=== PATIENT | female | born 1930 | race African-American/Black ===

== ENCOUNTER → 2016-07-20 | Outpatient (CLI) | payer MEDICARE, OTHER ==
[~2016-07-20] MED LIST: ALPR.25 PO; AMLO5 PO; ASPI325T PO; ATOR20TA15 PO; CARV6.252 PO; CIPR-9 PO; COLA100C3 PO; DILA100C PO; FENT25T TD; HYDR-3516 PO; LEVE250 PO; LEVE500T8 PO; PANT40TA3 PO; PRAD150C PO; SERO25TA PO; SIME80CH CHEW; TORS20TA PO
== END ==
LOC: CLAB 13:16
PROVIDERS: ATTEND Psychiatry & Neurology Neurology
DX: R56.9 Unspecified convulsions (principal)
CPT/HCPCS: 36415; 80177; 80185

== ENCOUNTER 2016-10-12 19:42 | Emergency (ER) | payer MEDICARE, OTHER ==
[~2016-10-12] VITALS: Ht 167.6 cm; Wt 55.0 kg
[~2016-10-12 19:42] MED LIST changes: -LEVE250 PO
[2016-10-12 19:49] VITALS: BP 124/64; PULSE 66; RESP 20; O2SAT 95
[2016-10-12 20:03] VITALS: TEMP 97.9
--- NOTE | 2016-10-12 20:07 | PD ---
HPI Chief Complaint: General Weakness Time Seen by Provider: 20:05 Travel History International Travel<30 days: No Contact w/Intl Traveler<30days: No Traveled to known affect area: No History of Present Illness HPI 85-year-old female came to the emergency room brought by EMS since she wants to go to the [facility]. Patient is extremely frail and unable to take care of herself. She lives by herself. She told the the paramedics that she hasn't eaten in 2-3 days and hasn't taken her medications since she is unable to. She has family members were supposed to come and visit her today but nobody has come. She was crying and tearful when I saw her. It's hard to understand what she is speaking since she has no teeth in her mouth and her mouth was very dry. PFSH Past Medical History Narrative Medical List of her past medical, surgical, social and family history was reviewed from the nursing note. Hx Anticoagulant Therapy: Yes (PRADAXA) Arthritis: Yes Asthma: Yes Atrial Fibrillation: Yes Autoimmune Disease: No Blood Disorders: No Anxiety: Yes Depression: No Heart Rhythm Problems: Yes Cancer: No Cardiovascular Problems: Yes (pacer) High Cholesterol: No Chemotherapy: No Chest Pain: No Congestive Heart Failure: Yes COPD: No Cerebrovascular Accident: Yes (with Lt sided weakness ) Dementia: Yes Diabetes: No Diminished Hearing: Yes (right BOONE) Endocrine: No GERD: Yes Glaucoma: No Genitourinary: No Hiatal Hernia: No Hypertension: Yes Immune Disorder: No Implanted Vascular Access Dvce: Yes Kidney Stones: No Musculoskeletal: Yes Neurologic: Yes Psychiatric: No Reproductive: No Respiratory: No Migraines: No Radiation Therapy: No Renal Failure: No Seizures: Yes Sickle Cell Disease: No Sleep Apnea: No Thyroid Disease: No Ulcer: No Influenza Vaccination: No ?: Not : 11 Para: 11 Miscarriage: 0 : 0 Past Surgical History Abdominal Surgery: No AICD: Yes Arteriovenous Shunt: No Body Medical Devices: DEFIBRILLATOR Cardiac Surgery: Yes (AICD placed on 2005; coronary angiogram) Ear Surgery: No Endocrine Surgery: No Eye Surgery: Yes (Cataract surgery) Genitourinary Surgery: No Gynecologic Surgery: Yes (Partial Hysterectomy) Hysterectomy: Yes (partial) Insulin Pump: No Joint Replacement: No Oral Surgery: No Pacemaker: Yes Thoracic Surgery: No Other Surgery: Yes Social History Alcohol Use: No Tobacco Use: No Substance Use: No Allergies-Medications (Allergen,Severity, Reaction): Coded Allergies: Darvocet-N 100 (Verified Allergy, Severe, nausea and vomiting, 10/12/16) MRI PRECAUTION (Verified Allergy, Severe, 10/12/16) DIFIBRILLATOR Comments List of her allergies reviewed from the nursing note. Reported Meds & Prescriptions Reported Meds & Active Scripts Active Hydrocodone-Acetaminophen 5-325 mg Tab 1 Tab PO Q6HR PRN Duragesic Patch 72 HR (Fentanyl) 25 Mcg/Hr Patch 1 Patch TD Q3D Cipro (Ciprofloxacin HCl) 500 Mg Tab 500 Mg PO Q12HR Xanax (Alprazolam) 0.25 Mg Tab 0.125 Mg PO Q8HR PRN Dilantin (Phenytoin Extended) 100 Mg Cap 100 Mg PO Q8HR Pantoprazole (Pantoprazole Sodium) 40 Mg Tab 40 Mg PO DAILY Norvasc (Amlodipine Besylate) 5 Mg Tab 5 Mg PO DAILY Seroquel (Quetiapine Fumarate) 25 Mg Tab 12.5 Mg PO HS Levetiracetam 500 Mg Tab 500 Mg PO Q6HR Pradaxa (Dabigatran) 150 Mg Cap 150 Mg PO BID Simethicone 80 Mg Chw 80 Mg CHEW BID PRN Aspirin 325 Mg Tab 325 Mg PO DAILY Colace (Docusate Sodium) 100 Mg Cap 100 Mg PO BID Torsemide 20 Mg Tab 20 Mg PO DAILY Carvedilol 6.25 Mg Tab 6.25 Mg PO BID Atorvastatin (Atorvastatin Calcium) 20 Mg Tab 20 Mg PO HS Narrative Medication List of her home medications reviewed from the nursing note. Review of Systems Except as stated in HPI: all other systems reviewed are Neg Physical Exam Narrative GENERAL: Awake, alert, elderly, frail, tearful SKIN: Focused skin assessment warm/dry. HEAD: Atraumatic. Normocephalic. EYES: Pupils equal and round. No scleral icterus. No injection or drainage. ENT: No nasal bleeding or discharge. Dry mucous membrane, coated tongue NECK: Trachea midline. No JVD. CARDIOVASCULAR: Regular rate and rhythm. No murmur appreciated. RESPIRATORY: No accessory muscle use. Clear to auscultation. Breath sounds equal bilaterally. GASTROINTESTINAL: Abdomen soft, non-tender, nondistended. Hepatic and splenic margins not palpable. MUSCULOSKELETAL: No obvious deformities. No clubbing. No cyanosis. Bilateral pitting edema NEUROLOGICAL: Awake and alert. No obvious cranial nerve deficits. Motor grossly within normal limits. Dysarthric speech due to absent dentures. PSYCHIATRIC: Appropriate mood and affect; insight and judgment normal. Data Data Last Documented VS Vital Signs Date Time Temp Pulse Resp B/P Pulse Ox O2 Delivery O2 Flow Rate FiO2 10/12/16 20:03 97.9 10/12/16 19:49 66 20 124/64 95 Orders Electrocardiogram (10/12/16 20:10) Basic Metabolic Panel (Bmp) (10/12/16 20:10) Complete Blood Count With Diff (10/12/16 20:10) Magnesium (Mg) (10/12/16 20:10) Prothrombin Time / Inr (Pt) (10/12/16 20:10) Troponin I (10/12/16 20:10) Chest, Single Ap (10/12/16 20:10) Ecg Monitoring (10/12/16 20:10) Bilateral Bp Monitoring (10/12/16 20:10) Iv Access Insert/Monitor (10/12/16 20:10) Oximetry (10/12/16 20:10) Oxygen Administration (10/12/16 20:10) Sodium Chloride 0.9% Flush (Ns Flush) (10/12/16 20:15) Sodium Chlorid 0.9% 500 Ml Inj (Ns 500 M (10/12/16 20:15) Urinalysis - C+S If Indicated (10/12/16 20:44) ^ Straight Catheter (10/12/16 20:44) Labs Laboratory Tests Test 10/12/16 10/12/16 20:20 22:00 White Blood Count 5.0 TH/MM3 Red Blood Count 3.69 MIL/MM3 Hemoglobin 10.9 GM/DL Hematocrit 34.2 % Mean Corpuscular Volume 92.6 FL Mean Corpuscular Hemoglobin 29.4 PG Mean Corpuscular Hemoglobin 31.8 % Concent Red Cell Distribution Width 15.3 % Platelet Count 195 TH/MM3 Mean Platelet Volume 9.5 FL Neutrophils (%) (Auto) 53.3 % Lymphocytes (%) (Auto) 28.9 % Monocytes (%) (Auto) 12.0 % Eosinophils (%) (Auto) 5.0 % Basophils (%) (Auto) 0.8 % Neutrophils # (Auto) 2.6 TH/MM3 Lymphocytes # (Auto) 1.4 TH/MM3 Monocytes # (Auto) 0.6 TH/MM3 Eosinophils # (Auto) 0.2 TH/MM3 Basophils # (Auto) 0.0 TH/MM3 CBC Comment DIFF FINAL Differential Comment Prothrombin Time 17.1 SEC Prothromb Time International 1.5 RATIO Ratio Sodium Level 144 MEQ/L Potassium Level 5.1 MEQ/L Chloride Level 104 MEQ/L Carbon Dioxide Level 33.5 MEQ/L Anion Gap 7 MEQ/L Blood Urea Nitrogen 32 MG/DL Creatinine 1.13 MG/DL Estimat Glomerular Filtration 56 ML/MIN Rate Random Glucose 99 MG/DL Calcium Level 9.0 MG/DL Magnesium Level 2.3 MG/DL Troponin I 0.03 NG/ML Urine Color YELLOW Urine Turbidity CLEAR Urine pH 5.0 Urine Specific [place] 1.012 Urine Protein NEG mg/dL Urine Glucose (UA) NEG mg/dL Urine Ketones NEG mg/dL Urine Occult Blood NEG Urine Nitrite NEG Urine Bilirubin NEG Urine Urobilinogen LESS THAN 2.0 MG/DL Urine Leukocyte Esterase NEG Urine RBC 1 /hpf Urine WBC LESS THAN 1 /hpf Urine Squamous Epithelial <1 /hpf Cells Urine Hyaline Casts 28 /lpf Urine Mucus FEW /lpf Microscopic Urinalysis Comment CATH-CULT NOT IND MDM Medical Decision Making Medical Screen Exam Complete: Yes Emergency Medical Condition: Yes Medical Record Reviewed: Yes Interpretation(s) Twelve-lead EKG was reviewed by me. Atrial fibrillation, left axis deviation, interventricular conduction delay. Heart rate of 69 bpm. Differential Diagnosis Dehydration, UTI, failure to thrive Narrative Course 8:48 PM awaiting for the blood test results to come back. Chest x-ray shows stable cardiomegaly. 10:44 PM blood test result and UA was back and within normal limit. I have medically cleared her. I've asked for ED case management to look into the case. Patient was given meal to eat which she ate well. 12:48 AM patient's son and grandson came and she was tried to be ambulated with a walker. Patient took slow 15-20 steps and mated till a wheelchair. As per the family patient uses walker to ambulate at home. They're comfortable taking her home and her grandson is going to stay with her tonight. I will also prepare he [id number] for home health care. Procedures EKG Prior to Arrival: No Diagnosis Primary Impression: Generalized weakness Referrals: Primary Care Physician 2 days Additional Instructions: Please return to the ER if the condition worsens or any other new concerns. Otherwise follow-up with your primary care. Med/Other Pt SpecificInfo: No Change to Meds Disposition: 01 DISCHARGE HOME Condition: Stable Oz Hemphill MD Oct 12, 2016 20:07
[2016-10-12] MEDS ORDERED: SODIUM CHLORIDE 0.9% FLUSH 10 ML FLUSH IVF PRN (20:15)
[2016-10-12] MEDS ORDERED: SODIUM CHLORID 0.9% 500 ML INJ 500 ML IV ONE (20:15)
--- NOTE | 2016-10-12 20:33 | RADRPT ---
EXAM DATE/TIME: 10/12/2016 20:20 [facility] COMPARISON: CHEST SINGLE AP, December 18, 2013, 18:56. INDICATIONS : Chest pain. MEDICAL HISTORY : Cardiovascular disease. Cerebrovascular disease. Dementia. SURGICAL HISTORY : Pacemaker. ENCOUNTER: Initial ACUITY: 1 day PAIN SCORE: Non-responsive. LOCATION: Bilateral chest FINDINGS: There is compensated cardiomegaly without failure. 3-lead pacer is evident. Lead appears intact. Th e portion of the bony skeleton visualized is unremarkable. CONCLUSION: Compensated cardiomegaly otherwise negative Reji Plummer MD FACR on October 12, 2016 at 20:30 Board Certified Radiologist. This report was verified electronically.
[2016-10-12 20:49] LABS: AUTOMATED NEUTROPHIL # 2.6 TH/MM3 (1.8-7.7); BASOPHIL % 0.8 % (0.0-2.0); EOSINOPHIL # 0.2 TH/MM3 (0-0.4); HEMATOCRIT 34.2 % (35.0-46.0); HEMO FLAGS DIFF FINAL; LYMPH % 28.9 % (9.0-44.0); LYMPHOCYTE # 1.4 TH/MM3 (1.0-4.8); MEAN CELL VOLUME 92.6 FL (80.0-100.0); MEAN CORPUSCULAR HEMOGLOBIN 29.4 PG (27.0-34.0); MEAN CORPUSCULAR HGB CONC 31.8 % (32.0-36.0); NEUT % 53.3 % (16.0-70.0); PLATELET COUNT 195 TH/MM3 (150-450); RED BLOOD COUNT 3.69 MIL/MM3 (4.00-5.30); RED CELL DISTRIBUTION WIDTH 15.3 % (11.6-17.2)
[2016-10-12 21:02] LABS: INTERNATIONAL NORMALIZED RATIO 1.5 RATIO; PROTHROMBIN TIME - PATIENT 17.1 SEC (9.8-11.6)
[2016-10-12 21:17] LABS: BICARBONATE 33.5 MEQ/L (21.0-32.0); MAGNESIUM 2.3 MG/DL (1.5-2.5)
[2016-10-12 21:18] LABS: POTASSIUM 5.1 MEQ/L (3.5-5.1)
[2016-10-12 22:16] LABS: BLOOD, URINE NEG (NEG); GLUCOSE,URINE NEG (NEG); HYALINE CAST, URINE 28 /lpf (RARE); KETONE, URINE NEG (NEG); MUCUS URINE FEW /lpf (OCC); NITRITE,URINE NEG (NEG); SQUAMOUS EPITHELIAL CELL URINE <1 /hpf (0-5); URINE COLOR YELLOW (YELLW/STRAW)
[2016-10-12 22:22] LABS: COMMENT (UR) CATH-CULT NOT IND; CULTURE IF INDICATED CATH CULTURE NOT IND
--- NOTE | 2016-10-13 00:54 | HHI.FF ---
Face to Face Verification Diagnosis: (1) Generalized weakness Physical Therapy Order: Evaluate and Treat, Improve ambulation, Strength and gait training Occupational Therapy Order: Evaluate and Treat, Improve ADL, Gross motor coordination Home Health Nursing Order: Medical education Nursing assessment with vital signs Home Health Aide Order: To Assist In: Bathing and personal care, plasterer spot and meal prep [employer] Order: To Evaluate: Living conditions/environment Order: To Provide: Long range planning I have seen patient Aida Baxter on 10/13/16. My clinical findings support the need for the requested home health care services because: Of her extreme progressing debility and generalized weakness. Patient is having hard time ambulating and taking care of herself. Ltd mobility - disease progression Deconditioned w/ increased weakness Limited ability to care for self High risk of falls I certify that my clinical findings support that this patient is homebound because: Generalized weakness, debility, difficulty ambulating and taking care of herself Unsteady gait/balance Unsafe to leave home unassisted Unable to use public transportation Oz Hemphill MD Oct 13, 2016 00:54
--- NOTE | 2016-10-13 11:41 | EKG ---
Date Performed: 10/12/2016 Time Performed: 20:34:21 PTAGE: 85 years EKG: ATRIAL FIBRILLATION INTRAVENTRICULAR CONDUCTION DELAY ABNORMAL ECG PREVIOUS TRACING : 05/25/2016 19.32 DOCTOR: Doc Baeza Interpretating Date/Time 10/13/2016 11:37:38
== END 2016-10-13 01:00 | disposition home or self-care (01) ==
LOC: NEPD 19:42
DX: R53.1 Weakness (principal); I48.91 Unspecified atrial fibrillation; I50.9 Heart failure, unspecified; I10 Essential (primary) hypertension; R54 Age-related physical debility
CPT/HCPCS: 71010; 80048; 81001; 83735; 84484; 85025; 85610; 93005; 96360; 99285; J7040

== ENCOUNTER → 2016-10-22 | Outpatient (CLI) | payer MEDICARE, OTHER ==
[~2016-10-22] MED LIST changes: +LEVE250 PO
== END ==
LOC: CLAB 13:36
PROVIDERS: ATTEND Psychiatry & Neurology Neurology
DX: R56.9 Unspecified convulsions (principal)
CPT/HCPCS: 36415; 80177; 80185

== ENCOUNTER 2016-12-01 19:05 | Inpatient (IN) | payer MEDICARE, OTHER ==
[2016-12-01 19:05] VITALS: RESP 24; O2SAT 97
[~2016-12-01 19:05] MED LIST changes: -LEVE250 PO
[2016-12-01] MEDS ORDERED: SODIUM CHLOR 0.9% 1000 ML INJ 1,000 ML IV SCH (19:14)
[2016-12-01] MEDS ORDERED: SODIUM CHLORIDE 0.9% FLUSH 5 ML FLUSH IV FLUSH PRN (19:15)
--- NOTE | 2016-12-01 19:20 | PD ---
HPI Chief Complaint: altered mental status Time Seen by Provider: 19:13 Travel History International Travel<30 days: No Contact w/Intl Traveler<30days: No Traveled to known affect area: No History of Present Illness HPI The patient is a 85-year-old female who presents to emergency department via EMS for altered mental status. EMS states they have multiple calls to the patient's house over the last year. The patient's son apparently checked on her earlier today and noted that she was somewhat lethargic and altered. According to EMS the patient's baseline GCS is 15 and she relates with a walker. The patient apparently was unable to ambulate when they evaluated her in the house and noted that her GCS was 14. EMS states the patient's blood sugar was normal, she was alert and oriented to person, but was unable to answer the month or year. The patient is a poor historian, keeps asking "why are you doing this to be ". The patient denies any headache, chest pain, first breath, nausea, vomiting, or abdominal pain. Further information is obtainable from the patient. Most the history is obtained from the EMR and from EMS. PFSH Past Medical History Hx Anticoagulant Therapy: Yes (PRADAXA) Arthritis: Yes Asthma: Yes Atrial Fibrillation: Yes Autoimmune Disease: No Blood Disorders: No Anxiety: Yes Depression: No Heart Rhythm Problems: Yes Cancer: No Cardiovascular Problems: Yes (pacer) High Cholesterol: No Chemotherapy: No Chest Pain: No Congestive Heart Failure: Yes COPD: No Cerebrovascular Accident: Yes (with Lt sided weakness ) Dementia: Yes Diabetes: No Diminished Hearing: Yes (right BOONE) Endocrine: No GERD: Yes Glaucoma: No Genitourinary: No Hiatal Hernia: No Hypertension: Yes Immune Disorder: No Implanted Vascular Access Dvce: Yes Kidney Stones: No Musculoskeletal: Yes Neurologic: Yes Psychiatric: No Reproductive: No Respiratory: No Migraines: No Radiation Therapy: No Renal Failure: No Seizures: Yes Sickle Cell Disease: No Sleep Apnea: No Thyroid Disease: No Ulcer: No : 11 Para: 11 Miscarriage: 0 : 0 Past Surgical History Abdominal Surgery: No AICD: Yes Arteriovenous Shunt: No Body Medical Devices: DEFIBRILLATOR Cardiac Surgery: Yes (AICD placed on 2005; coronary angiogram) Ear Surgery: No Endocrine Surgery: No Eye Surgery: Yes (Cataract surgery) Genitourinary Surgery: No Gynecologic Surgery: Yes (Partial Hysterectomy) Hysterectomy: Yes (partial) Insulin Pump: No Joint Replacement: No Oral Surgery: No Pacemaker: Yes Thoracic Surgery: No Other Surgery: Yes Social History Alcohol Use: No Tobacco Use: No Substance Use: No Allergies-Medications (Allergen,Severity, Reaction): Coded Allergies: Darvocet-N 100 (Verified Allergy, Severe, nausea and vomiting, 12/01/16) MRI PRECAUTION (Verified Allergy, Severe, 12/01/16) DIFIBRILLATOR Reported Meds & Prescriptions Reported Meds & Active Scripts Active Hydrocodone-Acetaminophen 5-325 mg Tab 1 Tab PO Q6HR PRN Duragesic Patch 72 HR (Fentanyl) 25 Mcg/Hr Patch 1 Patch TD Q3D Xanax (Alprazolam) 0.25 Mg Tab 0.125 Mg PO Q8HR PRN Dilantin (Phenytoin Extended) 100 Mg Cap 100 Mg PO Q8HR Norvasc (Amlodipine Besylate) 5 Mg Tab 5 Mg PO DAILY Seroquel (Quetiapine Fumarate) 25 Mg Tab 12.5 Mg PO HS Levetiracetam 500 Mg Tab 500 Mg PO Q6HR Pradaxa (Dabigatran) 150 Mg Cap 150 Mg PO BID Aspirin 325 Mg Tab 325 Mg PO DAILY Torsemide 20 Mg Tab 20 Mg PO DAILY Carvedilol 6.25 Mg Tab 6.25 Mg PO BID Atorvastatin (Atorvastatin Calcium) 20 Mg Tab 20 Mg PO HS Review of Systems ROS Limitations: Altered Mental Status, Poor Historian Except as stated in HPI: all other systems reviewed are Neg Neurologic: Positive: Change in Mentation Physical Exam Narrative GENERAL: Awake, alert, confused, nontoxic-appearing 85-year-old female who appears her stated age and is in no acute respiratory distress. SKIN: Focused skin assessment warm/dry. HEAD: Atraumatic. Normocephalic. EYES: Pupils are 3 mm bilateral, no injection noted. ENT: No nasal bleeding or discharge. Dry mucous membranes. NECK: Trachea midline. No JVD. CARDIOVASCULAR: Irregularly irregular, heart rate in the 80s. AICD/pacemaker noted left upper chest wall. RESPIRATORY: No accessory muscle use. Clear to auscultation. Breath sounds equal bilaterally. GASTROINTESTINAL: Abdomen soft, non-tender, nondistended. No rebound tenderness. MUSCULOSKELETAL: The right lower extremity is shortened compared to left lower extremity. She is able flex left hip and left knee to 90, however, has limited ability to flex the right hip and right knee. NEUROLOGICAL: Awake, alert, confused. The patient is oriented to name and place , but not month, year, president of [employer] [facility] [employer]. PSYCHIATRIC: Appears confused. Data Data Last Documented VS Vital Signs Date Time Temp Pulse Resp B/P Pulse Ox O2 Delivery O2 Flow Rate FiO2 12/01/16 19:05 81 24 97 Room Air Orders Electrocardiogram (12/01/16 19:14) Ammonia (12/01/16 19:14) Complete Blood Count With Diff (12/01/16 19:14) Comprehensive Metabolic Panel (12/01/16 19:14) Creatine Kinase (Cpk) (12/01/16 19:14) Prothrombin Time / Inr (Pt) (12/01/16 19:14) Act Partial Throm Time (Ptt) (12/01/16 19:14) Troponin I (12/01/16 19:14) Thyroid Stimulating Hormone (12/01/16 19:14) Urinalysis - C+S If Indicated (12/01/16 19:14) Lactic Acid Sepsis Protocol (12/01/16 19:14) Blood Culture (12/01/16 19:14) Chest, Single Ap (12/01/16 19:14) Ct Brain W/O Iv Contrast(Rout) (12/01/16 19:14) Blood Glucose (12/01/16 19:14) Ecg Monitoring (12/01/16 19:14) Iv Access Insert/Monitor (12/01/16 19:14) Oximetry (12/01/16 19:14) Sodium Chloride 0.9% Flush (Ns Flush) (12/01/16 19:15) Sodium Chlor 0.9% 1000 Ml Inj (Ns 1000 M (12/01/16 19:14) Phenytoin (Dilantin) (12/01/16 19:14) Hip, Uni(Ap&Lat) W Ap Pelvis (12/01/16 ) Lorazepam Inj (Ativan Inj) (12/01/16 21:30) Admit Order (Ed Use Only) (12/01/16 21:35) Labs Laboratory Tests Test 12/01/16 12/01/16 12/01/16 19:20 20:05 20:10 Urine Color YELLOW Urine Turbidity CLEAR Urine pH 5.5 Urine Specific [place] 1.009 Urine Protein NEG mg/dL Urine Glucose (UA) NEG mg/dL Urine Ketones NEG mg/dL Urine Occult Blood NEG Urine Nitrite NEG Urine Bilirubin NEG Urine Urobilinogen LESS THAN 2.0 MG/DL Urine Leukocyte Esterase TRACE Urine RBC 1 /hpf Urine WBC 3 /hpf Urine Squamous Epithelial 3 /hpf Cells Urine Bacteria RARE /hpf Urine Hyaline Casts 18 /lpf Microscopic Urinalysis Comment CATH-CULT NOT IND White Blood Count 3.4 TH/MM3 Red Blood Count 3.57 MIL/MM3 Hemoglobin 11.1 GM/DL Hematocrit 33.7 % Mean Corpuscular Volume 94.4 FL Mean Corpuscular Hemoglobin 31.2 PG Mean Corpuscular Hemoglobin 33.0 % Concent Red Cell Distribution Width 14.5 % Platelet Count 269 TH/MM3 Mean Platelet Volume 8.9 FL Neutrophils (%) (Auto) 37.6 % Lymphocytes (%) (Auto) 44.7 % Monocytes (%) (Auto) 11.9 % Eosinophils (%) (Auto) 5.0 % Basophils (%) (Auto) 0.8 % Neutrophils # (Auto) 1.3 TH/MM3 Lymphocytes # (Auto) 1.5 TH/MM3 Monocytes # (Auto) 0.4 TH/MM3 Eosinophils # (Auto) 0.2 TH/MM3 Basophils # (Auto) 0.0 TH/MM3 CBC Comment DIFF FINAL Differential Comment Prothrombin Time 13.9 SEC Prothromb Time International 1.2 RATIO Ratio Activated Partial 43.8 SEC Thromboplast Time Sodium Level 139 MEQ/L Potassium Level 5.4 MEQ/L Chloride Level 101 MEQ/L Carbon Dioxide Level 29.2 MEQ/L Anion Gap 9 MEQ/L Blood Urea Nitrogen 42 MG/DL Creatinine 1.47 MG/DL Estimat Glomerular Filtration 41 ML/MIN Rate Random Glucose 117 MG/DL Calcium Level 8.9 MG/DL Total Bilirubin 0.4 MG/DL Aspartate Amino Transf 44 U/L (AST/SGOT) Alanine Aminotransferase 18 U/L (ALT/SGPT) Alkaline Phosphatase 179 U/L Total Creatine Kinase 143 U/L Troponin I 0.03 NG/ML Total Protein 7.2 GM/DL Albumin 3.3 GM/DL Thyroid Stimulating Hormone 1.480 uIU/ML 3rd Gen Phenytoin (Dilantin) Level 33.9 MCG/ML Lactic Acid Level 1.2 mmol/L Ammonia 12 MCMOL/L [facility] Medical Decision Making Medical Screen Exam Complete: Yes Emergency Medical Condition: Yes Medical Record Reviewed: Yes Interpretation(s) Laboratory Tests Test 12/01/16 12/01/16 12/01/16 19:20 20:05 20:10 Urine Color YELLOW Urine Turbidity CLEAR Urine pH 5.5 Urine Specific [place] 1.009 Urine Protein NEG mg/dL Urine Glucose (UA) NEG mg/dL Urine Ketones NEG mg/dL Urine Occult Blood NEG Urine Nitrite NEG Urine Bilirubin NEG Urine Urobilinogen LESS THAN 2.0 MG/DL Urine Leukocyte Esterase TRACE Urine RBC 1 /hpf Urine WBC 3 /hpf Urine Squamous Epithelial 3 /hpf Cells Urine Bacteria RARE /hpf Urine Hyaline Casts 18 /lpf Microscopic Urinalysis Comment CATH-CULT NOT IND White Blood Count 3.4 TH/MM3 Red Blood Count 3.57 MIL/MM3 Hemoglobin 11.1 GM/DL Hematocrit 33.7 % Mean Corpuscular Volume 94.4 FL Mean Corpuscular Hemoglobin 31.2 PG Mean Corpuscular Hemoglobin 33.0 % Concent Red Cell Distribution Width 14.5 % Platelet Count 269 TH/MM3 Mean Platelet Volume 8.9 FL Neutrophils (%) (Auto) 37.6 % Lymphocytes (%) (Auto) 44.7 % Monocytes (%) (Auto) 11.9 % Eosinophils (%) (Auto) 5.0 % Basophils (%) (Auto) 0.8 % Neutrophils # (Auto) 1.3 TH/MM3 Lymphocytes # (Auto) 1.5 TH/MM3 Monocytes # (Auto) 0.4 TH/MM3 Eosinophils # (Auto) 0.2 TH/MM3 Basophils # (Auto) 0.0 TH/MM3 CBC Comment DIFF FINAL Differential Comment Prothrombin Time 13.9 SEC Prothromb Time International 1.2 RATIO Ratio Activated Partial 43.8 SEC Thromboplast Time Sodium Level 139 MEQ/L Potassium Level 5.4 MEQ/L Chloride Level 101 MEQ/L Carbon Dioxide Level 29.2 MEQ/L Anion Gap 9 MEQ/L Blood Urea Nitrogen 42 MG/DL Creatinine 1.47 MG/DL Estimat Glomerular Filtration 41 ML/MIN Rate Random Glucose 117 MG/DL Calcium Level 8.9 MG/DL Total Bilirubin 0.4 MG/DL Aspartate Amino Transf 44 U/L (AST/SGOT) Alanine Aminotransferase 18 U/L (ALT/SGPT) Alkaline Phosphatase 179 U/L Total Creatine Kinase 143 U/L Troponin I 0.03 NG/ML Total Protein 7.2 GM/DL Albumin 3.3 GM/DL Thyroid Stimulating Hormone 1.480 uIU/ML 3rd Gen Phenytoin (Dilantin) Level 33.9 MCG/ML Lactic Acid Level 1.2 mmol/L Ammonia 12 MCMOL/L Differential Diagnosis Differential diagnoses includes dehydration, hyponatremia, hypertherapeutic Dilantin level, intracranial hemorrhage, delirium, UTI, pneumonia, sepsis, electrolyte abnormality, hip fracture. Narrative Course IV was established, labs are drawn and sent, and the patient was placed on cardiac telemetry monitoring and continuous pulse oximetry monitoring. EKG was ordered and interpreted. Chest x-ray was obtained. CT of the brain was obtained. Catheter UA was sent to lab. The patient was placed on IV fluids. The patient would yell out at various times and fall back asleep. The sodium is normal, UA was negative, CT reveals no acute findings. However, Dilantin level was elevated at 33.9. The patient has altered mental status secondary to supratherapeutic Dilantin level, therefore, the patient will be admitted. The patient's primary physician is Dr. Mccauley, therefore, [facility] Hospitalist were paged for admission. Physician Communication Physician Communication [facility] Hospitalists were paged for admission. I discussed the patient with Dr. Lewis who agrees with admission. Diagnosis Primary Impression: Subtherapeutic serum dilantin level Additional Impression: Altered mental status Qualified Code: R41.0 - Delirium Admitting Information Admitting Physician Requests: Admit Condition: Stable Fortino Claudio MD December 01, 2016 19:20 Fortino Claudio MD December 01, 2016 19:20
[2016-12-01 19:48] LABS: BACTERIA, URINE RARE /hpf; BLOOD, URINE NEG (NEG); GLUCOSE,URINE NEG (NEG); HYALINE CAST, URINE 18 /lpf (RARE); KETONE, URINE NEG (NEG); NITRITE,URINE NEG (NEG); PH, URINE 5.5 (5.0-8.5); SQUAMOUS EPITHELIAL CELL URINE 3 /hpf (0-5); URINE COLOR YELLOW (YELLW/STRAW)
[2016-12-01 19:49] LABS: COMMENT (UR) CATH-CULT NOT IND; CULTURE IF INDICATED CATH CULTURE NOT IND
--- NOTE | 2016-12-01 20:02 | RADRPT ---
EXAM DATE/TIME: 12/01/2016 19:48 [facility] COMPARISON: CT BRAIN W/O CONTRAST, May 26, 2016, 22:19. INDICATIONS : Altered mental status. RADIATION DOSE: 40.20 CTDIvol (mGy) MEDICAL HISTORY : Congestive hearrt failure. Gastroesophageal reflux disease. Hypertension.Dementia. Seizures. CVA. SURGICAL HISTORY : Pacemaker. Hysterectomy.Cervical fusion. ENCOUNTER: Initial ACUITY: 1 day PAIN SCALE: 0/10 LOCATION: cranial TECHNIQUE: Multiple contiguous axial images were obtained of the head. Using automated exposure control and adj ustment of the mA and/or kV according to patient size, radiation dose was kept as low as reasonably a chievable to obtain optimal diagnostic quality images. FINDINGS: Atrophy. Extensive periventricular low attenuation change involving both cerebral hemispheres. No hem orrhage or acute infarction. No mass. Calvarium and paranasal sinuses are unremarkable. CONCLUSION: 1. No acute intracranial abnormality. 2. Extensive chronic small vessel ischemic change. Kris Ramírez Jr., MD on December 01, 2016 at 19:58 Board Certified Radiologist. This report was verified electronically.
--- NOTE | 2016-12-01 20:08 | RADRPT ---
EXAM DATE/TIME: 12/01/2016 19:35 [facility] COMPARISON: CHEST SINGLE AP, October 12, 2016, 20:20. INDICATIONS : Syncope. MEDICAL HISTORY : None. SURGICAL HISTORY : Pacemaker. ENCOUNTER: Initial ACUITY: 1 day PAIN SCORE: Non-responsive. LOCATION: Bilateral chest FINDINGS: A single portable frontal view of the chest shows cardiomegaly. Left-sided pacing device. Lungs are h yperaerated but clear. No pneumothorax, infiltrate, or effusion. A scoliotic spine. CONCLUSION: Cardiomegaly. Hyperinflation suggesting COPD. Kris Ramírez Jr., MD on December 01, 2016 at 20:04 Board Certified Radiologist. This report was verified electronically.
--- NOTE | 2016-12-01 20:12 | RADRPT ---
EXAM DATE/TIME: 12/01/2016 19:36 [place] COMPARISON: No previous studies available for comparison. INDICATIONS : Right hip pain. MEDICAL HISTORY : None. SURGICAL HISTORY : None. ENCOUNTER: Initial ACUITY: 1 day PAIN SCORE: Non-responsive. LOCATION: Right hip FINDINGS: 4 images of the right hip reveal diffuse osteopenia. Advanced chronic changes involving the right hip . There is erosion involving the acetabulum as well as the femoral head within subluxation of the fem oral head superiorly. No dislocation. No acute fracture. Visualized portions of the bowel gas pattern are unremarkable. Atherosclerotic change is noted. CONCLUSION: 1. Advanced chronic changes involving the right hip as detailed above. No acute abnormality. Kris Ramírez Jr., MD on December 01, 2016 at 20:09 Board Certified Radiologist. This report was verified electronically.
[2016-12-01 20:21] LABS: AUTOMATED NEUTROPHIL # 1.3 TH/MM3 (1.8-7.7); BASOPHIL % 0.8 % (0.0-2.0); EOSINOPHIL # 0.2 TH/MM3 (0-0.4); HEMATOCRIT 33.7 % (35.0-46.0); HEMO FLAGS DIFF FINAL; LYMPH % 44.7 % (9.0-44.0); LYMPHOCYTE # 1.5 TH/MM3 (1.0-4.8); MEAN CELL VOLUME 94.4 FL (80.0-100.0); MEAN CORPUSCULAR HEMOGLOBIN 31.2 PG (27.0-34.0); MONO % 11.9 % (0.0-8.0); NEUT % 37.6 % (16.0-70.0); PLATELET COUNT 269 TH/MM3 (150-450); RED BLOOD COUNT 3.57 MIL/MM3 (4.00-5.30); RED CELL DISTRIBUTION WIDTH 14.5 % (11.6-17.2); WHITE BLOOD COUNT 3.4 TH/MM3 (4.0-11.0)
[2016-12-01 20:41] LABS: APTT (PATIENT) 43.8 SEC (24.3-30.1); INTERNATIONAL NORMALIZED RATIO 1.2 RATIO; PROTHROMBIN TIME - PATIENT 13.9 SEC (9.8-11.6)
[2016-12-01 20:52] LABS: ALKALINE PHOSPHATASE 179 U/L (45-117); ALT (GPT) 18 U/L (10-53); ANION GAP 9 MEQ/L (5-15); AST (GOT) 44 U/L (15-37); BICARBONATE 29.2 MEQ/L (21.0-32.0); BLOOD UREA NITROGEN 42 MG/DL (7-18); CHLORIDE 101 MEQ/L (98-107); CREATINE KINASE 143 U/L (26-192); GLOMERULAR FILTRATION RATE 41 ML/MIN (>89); SODIUM (NA) 139 MEQ/L (136-145); TOTAL BILIRUBIN ADULT 0.4 MG/DL (0.2-1.0)
[2016-12-01 21:14] LABS: POTASSIUM 5.4 MEQ/L (3.5-5.1)
[2016-12-01] MEDS ORDERED: LORazepam 2 MG/ML VIAL IV PUSH ONE (21:30)
[2016-12-01] MEDS ORDERED: NALOXONE HCL 0.4 MG/ML AMP IV PRN (22:00)
[2016-12-01] MEDS ORDERED: SODIUM CHLORIDE 0.9% FLUSH 10 ML FLUSH IV FLUSH PRN (22:00)
[2016-12-01 22:12] VITALS: BP 131/64; PULSE 65; RESP 20; O2SAT 95
[2016-12-01 23:05] VITALS: BP 123/58; PULSE 60; RESP 16; TEMP 96.3; O2SAT 98
[2016-12-01 23:21] VITALS: PULSE 60
--- NOTE | 2016-12-02 00:32 | HHI.HP ---
[facility] Service [facility] Primary Care Physician Alvarado Mccauley MD Admission Diagnosis supratherapeutic Dilantin level, altered mental status, delirium Diagnoses: Travel History International Travel<30 Days: No Contact w/Intl Traveler <30 Da: No Traveled to Known Affected Are: No History of Present Illness History from ER physician communication, review of medical records, and nursing staff. Patient is known to me from her prior hospitalization on May 26, 2016. At that time, I did speak with patient's daughter extensively. Therefore most of the history at that time was taken from the daughter. Today, patient was accompanied by her son. Her son was present both in emergency room and on medical floors and therefore discussed extensively with the ER physician and nursing staff on medical floors. History is therefore taken from these staff members. Patient herself is elderly lady who is quite sedated at the time of my arrival and sleeping. She also does have history of dementia. Essentially, patient was brought in by EMS because patient's son checked on her earlier today and noted that patient was lethargic and altered. According to the EMS, patient's baseline GCS is 15 and that patient walks with a walker. Patient was not able to ambulate when they evaluated her in her house and noted that her GCS was 14. EMS found her blood sugar to be normal and she was alert and oriented to person but was unable to answer month or year. While in emergency room, patient was verbally communicative but mostly asking staff members "why are you doing this to me". Patient was also able to answer some questions and denied headache/chest pain/ shortness of breath/nausea/vomiting/abdominal pains according to ER notes. At the time of my arrival, patient is quite sedated. She did receive Ativan 1 mg IV around 2129 Review of Systems ROS Limitations: Altered Mental Status (unable to obtain review of systems) Past Family Social History Past Medical History Hypertension CAD Atrial fibrillation Sick sinus syndromestatus post pacemaker placement Cardiomyopathystatus post AICD placement. Per daughter, the lead wire was not working well but ui software developer decided not to redo it because patient is a high risk. This AICD is not functioning. However EF had recovered and does not need LifeVest. 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 Including pancreatic, cervical, ovarian Social History Used to smoke cigarettes but quit several years ago. denies any alcohol abuse or drug abuse. Patient was recently discharged from her rehabilitation facility. Otherwise she lives by herself, has home health care and home health aide. Physical Exam Vital Signs Vital Signs Date Time Temp Pulse Resp B/P Pulse Ox O2 Delivery O2 Flow Rate FiO2 12/01/16 23:21 60 12/01/16 22:12 65 20 131/64 95 Nasal Cannula 2 12/01/16 19:05 81 24 97 Room Air 12/01/16 19:05 24 97 Room Air Physical Exam GENERAL: This is an elderly lady, sleeping, difficult to arouse her. In no acute distress. SKIN: No rashes, ecchymoses or lesions. Cool and dry. HEAD: Atraumatic. Normocephalic. No temporal or scalp tenderness. EYES: No scleral icterus. No injection or drainage. ENT: Nose without bleeding, purulent drainage or septal hematoma. . Airway patent. NECK: Trachea midline. No JVD Supple, nontender, no meningeal signs. CARDIOVASCULAR: Regular rate and rhythm without murmurs, gallops, or rubs. RESPIRATORY: Clear to auscultation. Breath sounds equal bilaterally. No wheezes , rales, or rhonchi. GASTROINTESTINAL: Abdomen soft, non-tender, nondistended.No guarding. MUSCULOSKELETAL: Extremities without clubbing, cyanosis, or edema.. No calf tenderness. NEUROLOGICAL: asleep mostly, not in distress, no obvious Focal deficits Laboratory Laboratory Tests Test 12/01/16 12/01/16 12/01/16 19:20 20:05 20:10 Urine Color YELLOW Urine Turbidity CLEAR Urine pH 5.5 Urine Specific [place] 1.009 Urine Protein NEG Urine Glucose (UA) NEG Urine Ketones NEG Urine Occult Blood NEG Urine Nitrite NEG Urine Bilirubin NEG Urine Urobilinogen LESS THAN 2.0 Urine Leukocyte Esterase TRACE Urine RBC 1 Urine WBC 3 Urine Squamous Epithelial 3 Cells Urine Bacteria RARE Urine Hyaline Casts 18 Microscopic Urinalysis Comment CATH-CULT NOT IND White Blood Count 3.4 Red Blood Count 3.57 Hemoglobin 11.1 Hematocrit 33.7 Mean Corpuscular Volume 94.4 Mean Corpuscular Hemoglobin 31.2 Mean Corpuscular Hemoglobin 33.0 Concent Red Cell Distribution Width 14.5 Platelet Count 269 Mean Platelet Volume 8.9 Neutrophils (%) (Auto) 37.6 Lymphocytes (%) (Auto) 44.7 Monocytes (%) (Auto) 11.9 Eosinophils (%) (Auto) 5.0 Basophils (%) (Auto) 0.8 Neutrophils # (Auto) 1.3 Lymphocytes # (Auto) 1.5 Monocytes # (Auto) 0.4 Eosinophils # (Auto) 0.2 Basophils # (Auto) 0.0 CBC Comment DIFF FINAL Differential Comment Prothrombin Time 13.9 Prothromb Time International 1.2 Ratio Activated Partial 43.8 Thromboplast Time Sodium Level 139 Potassium Level 5.4 Chloride Level 101 Carbon Dioxide Level 29.2 Anion Gap 9 Blood Urea Nitrogen 42 Creatinine 1.47 Estimat Glomerular Filtration 41 Rate Random Glucose 117 Calcium Level 8.9 Total Bilirubin 0.4 Aspartate Amino Transf 44 (AST/SGOT) Alanine Aminotransferase 18 (ALT/SGPT) Alkaline Phosphatase 179 Total Creatine Kinase 143 Troponin I 0.03 Total Protein 7.2 Albumin 3.3 Thyroid Stimulating Hormone 1.480 3rd Gen Phenytoin (Dilantin) Level 33.9 Lactic Acid Level 1.2 Ammonia 12 Date/Time Procedure Status Source Growth 12/01/16 20:10 Aerobic Blood Culture Received Blood Peripheral Pending 12/01/16 20:10 Anaerobic Blood Culture Received Blood Peripheral Pending Result Diagram: 12/01/16200412/01/162004 Imaging Last [address] 12/01/161913 Signed Impressions: Service Date/Time: Thursday, December 01, 2016 19:48 - CONCLUSION: 1. No acute intracranial abnormality. 2. Extensive chronic small vessel ischemic change. Kris Ramírez Jr., MD Chest X-Ray 12/01/161913 Signed Impressions: Service Date/Time: Thursday, December 01, 2016 19:35 - CONCLUSION: Cardiomegaly. Hyperinflation suggesting COPD. Kris Ramírez Jr., MD Hip and Pelvis X-Ray 12/01/16 0000 Signed Impressions: Service Date/Time: Thursday, December 01, 2016 19:36 - CONCLUSION: 1. Advanced chronic changes involving the right hip as detailed above. No acute abnormality. Kris Ramírez Jr., MD Assessment and Plan Problem List: (1) Altered mental status ICD Code: R41.82 Status: Acute (2) supratherapeutic dilantin level Status: Acute Assessment and Plan Impression: Altered mental statuson an elderly patient with baseline dementia Supratherapeutic Dilantin levellikely contributing to her mental status Hyperkalemiahemolyzed sample Plan: Neurochecks every 4 hours. Will repeat Dilantin level in a.m. Hold Dilantin. Telemetry monitoring. EKGpersonally reviewed no acute st t changes, there is significant blocks or arrthymias Avoid oversedation. UA was checked which was negative. Ammonia level was normal. Lactic acid level normal. Resume home medications. DVT prophylaxiswith heparin Discussed Condition With patient's nurse, ER Problem Qualifiers (1) Altered mental status: Qualified Code: R41.0 - Delirium Andrade Lewis MD December 02, 2016 00:32
[2016-12-02 04:00] VITALS: BP 126/65; PULSE 61; RESP 20; TEMP 98.5; O2SAT 96
[2016-12-02 08:00] VITALS: BP 122/65; PULSE 65; RESP 16; TEMP 97.6; O2SAT 94
[2016-12-02] MEDS ORDERED: PILL SPLITTER OTHER PRN (08:45)
[2016-12-02] MEDS: amLODIPine BESYLATE 5 MG TAB PO SCH (09:00)
[2016-12-02] MEDS: CARVEDILOL 6.25 MG TAB PO SCH ×2 (09:00→19:59)
[2016-12-02] MEDS: DABIGATRAN ETEXILATE 150 MG CAP PO SCH ×2 (09:00→20:00)
[2016-12-02] MEDS: ASPIRIN 325 MG TAB PO SCH ×2 (09:00→19:42)
[2016-12-02] MEDS: SODIUM CHLORIDE 0.9% FLUSH 10 ML FLUSH IV FLUSH SCH ×2 (09:00→20:00)
[2016-12-02] MEDS: TORSEMIDE 20 MG TAB PO SCH (09:00)
[2016-12-02 09:37] LABS: AUTOMATED NEUTROPHIL # 1.8 TH/MM3 (1.8-7.7); BASOPHIL % 0.5 % (0.0-2.0); EOSINOPHIL # 0.2 TH/MM3 (0-0.4); EOSINOPHIL % 4.5 % (0.0-4.0); HEMATOCRIT 35.5 % (35.0-46.0); HEMO FLAGS DIFF FINAL; LYMPH % 35.2 % (9.0-44.0); LYMPHOCYTE # 1.3 TH/MM3 (1.0-4.8); MEAN CELL VOLUME 95.7 FL (80.0-100.0); MEAN CORPUSCULAR HEMOGLOBIN 31.7 PG (27.0-34.0); MEAN CORPUSCULAR HGB CONC 33.1 % (32.0-36.0); MONO % 10.7 % (0.0-8.0); NEUT % 49.1 % (16.0-70.0); PLATELET COUNT 262 TH/MM3 (150-450); RED BLOOD COUNT 3.71 MIL/MM3 (4.00-5.30); RED CELL DISTRIBUTION WIDTH 14.8 % (11.6-17.2); WHITE BLOOD COUNT 3.6 TH/MM3 (4.0-11.0)
[2016-12-02 10:43] LABS: POTASSIUM 3.6 MEQ/L (3.5-5.1)
[2016-12-02 11:35] LABS: BICARBONATE 29.4 MEQ/L (21.0-32.0)
[2016-12-02 12:00] VITALS: BP 128/70; PULSE 72; RESP 18; TEMP 96.8; O2SAT 94
[2016-12-02] MEDS: levETIRAcetam 500 MG TAB PO SCH ×2 (12:00→19:41)
[2016-12-02] MEDS ORDERED: HEPARIN SODIUM - SQ 10,000 UNITS/ML VIAL SQ SCH (14:00)
[2016-12-02 16:00] VITALS: BP 118/69; PULSE 60; RESP 18; TEMP 97.4; O2SAT 95
[2016-12-02 20:00] VITALS: BP 120/58; PULSE 82; RESP 16; TEMP 97; O2SAT 95
[2016-12-02] MEDS: QUEtiapine FUMARATE 25 MG TAB PO SCH (20:00)
[2016-12-02] MEDS: ATORVASTATIN 20 MG TAB PO SCH (20:00)
[2016-12-03] VITALS: BP 108/58; PULSE 74; RESP 16; TEMP 97; O2SAT 97
[2016-12-03] MEDS: levETIRAcetam 500 MG TAB PO SCH ×4 (00:20→17:41)
[2016-12-03 04:00] VITALS: BP 106/52; PULSE 81; RESP 16; TEMP 97.9; O2SAT 96
[2016-12-03 08:00] VITALS: BP 137/70; PULSE 61; RESP 18; TEMP 96.5; O2SAT 94
[2016-12-03] MEDS: CARVEDILOL 6.25 MG TAB PO SCH ×2 (09:52→20:48)
[2016-12-03] MEDS: ASPIRIN 325 MG TAB PO SCH (09:52)
[2016-12-03] MEDS: TORSEMIDE 20 MG TAB PO SCH (09:52)
[2016-12-03] MEDS: DABIGATRAN ETEXILATE 150 MG CAP PO SCH ×2 (09:52→20:48)
[2016-12-03] MEDS: amLODIPine BESYLATE 5 MG TAB PO SCH (09:53)
[2016-12-03] MEDS: SODIUM CHLORIDE 0.9% FLUSH 10 ML FLUSH IV FLUSH SCH ×2 (09:59→20:48)
--- NOTE | 2016-12-03 11:09 | HHI.PR ---
Subjective Remarks Follow-up for acute mental status change, Dilantin toxicity. Patient opens her eyes and nods to questions. Follows simple commands. No fever or chills. Objective Vitals Vital Signs Date Time Temp Pulse Resp B/P Pulse Ox O2 Delivery O2 Flow Rate FiO2 12/03/16 08:00 96.5 61 18 137/70 94 12/03/16 04:00 97.9 81 16 106/52 96 12/03/16 00:00 97.0 74 16 108/58 97 12/02/16 20:00 97.0 82 16 120/58 95 12/02/16 16:00 97.4 60 18 118/69 95 12/02/16 12:00 96.8 72 18 128/70 94 I/O 12/02/16 12/02/16 12/02/16 12/03/16 12/03/16 12/03/16 07:00 15:00 23:00 07:00 15:00 23:00 Intake Total 30 ml 240 ml 240 ml 120 ml Output Total 800 ml Balance -770 ml 240 ml 240 ml 120 ml Intake Oral 30 ml 240 ml 240 ml 120 ml Output Urine Total 800 ml # Voids 3 3 1 # Bowel Movements 0 0 Result Diagram: 12/02/16 0612/02/16604 Imaging Last Impressions Head CT 12/01/161913 Signed Impressions: Service Date/Time: Thursday, December 01, 2016 19:48 - CONCLUSION: 1. No acute intracranial abnormality. 2. Extensive chronic small vessel ischemic change. Kris Ramírez Jr., MD Chest X-Ray 12/01/161913 Signed Impressions: Service Date/Time: Thursday, December 01, 2016 19:35 - CONCLUSION: Cardiomegaly. Hyperinflation suggesting COPD. Kris Ramírez Jr., MD Hip and Pelvis X-Ray 12/01/16 0000 Signed Impressions: Service Date/Time: Thursday, December 01, 2016 19:36 - CONCLUSION: 1. Advanced chronic changes involving the right hip as detailed above. No acute abnormality. Kris Ramírez Jr., MD Objective Remarks GENERAL: Alert, NAD. SKIN: Warm and dry. HEAD: Normocephalic. EYES: No scleral icterus. No injection or drainage. NECK: Supple, trachea midline. No JVD or lymphadenopathy. CARDIOVASCULAR: Regular rate and rhythm without murmurs, gallops, or rubs. RESPIRATORY: Breath sounds equal bilaterally. No accessory muscle use. GASTROINTESTINAL: Abdomen soft, non-tender, nondistended. MUSCULOSKELETAL: No cyanosis, or edema. BACK: Nontender without obvious deformity. No CVA tenderness. Procedures None. A/P Problem List: (1) Altered mental status ICD Code: R41.82 Status: Acute (2) supratherapeutic dilantin level Status: Acute Assessment and Plan Ms. Baxter is an 85 year old with a history of Afib who presented to the ED on 12/01/2016 due to altered mental status. She was found to be lethargic and altered. Her dilantin level was found to be elevated. - Altered mental status - Etiology unknown, could be due to elevated Dilantin level. - Continue to monitor Dilantin level. 33.9 --> 31.9. Check Dilantin level in the AM. - Acute kidney injury - Creatinine improved from 1.47 --> 1.08. - Hyperkalemia - K+ 5.4 --> 3.6. Resolved. - Hypertension - Atrial fibrillation - Hyperlipidemia - Continue Amlodipine 5mg Qday, Carvedilol 6.25mg BID, Dabigatran 150mg BID , Atorvastatin 20mg QHS. Full code. Dabigatran. Discussed with CM. If family members agree, we will try to set up SNF. Problem Qualifiers (1) Altered mental status: Qualified Code: R41.0 - Delirium Enedina Mathias DO Dec 03, 2016 11:08
[2016-12-03 12:04] VITALS: BP 115/63; PULSE 60; RESP 19; TEMP 97.3; O2SAT 96
[2016-12-03 16:02] VITALS: BP 104/66; PULSE 80; RESP 20; TEMP 97.3; O2SAT 97
[2016-12-03 20:00] VITALS: BP 116/60; PULSE 64; PULSE 80; RESP 20; TEMP 96.3; O2SAT 96
[2016-12-03] MEDS: QUEtiapine FUMARATE 25 MG TAB PO SCH (20:48)
[2016-12-03] MEDS: ATORVASTATIN 20 MG TAB PO SCH (20:48)
[2016-12-04] VITALS (8 sets, daily range): BP systolic 99–130; BP diastolic 53–77; PULSE 55–113; RESP 12–20; TEMP 96.2–97.5; O2SAT 94–99
[2016-12-04] MEDS: levETIRAcetam 500 MG TAB PO SCH ×4 (00:03→17:18)
[2016-12-04] MEDS ORDERED: ALPR.25 PO (09:43)
--- NOTE | 2016-12-04 09:44 | HHI.DS ---
Discharge Summary Admission Date Dec 03, 2016 at 4:47 pm Discharge Date: Dec 04, 2016 Admitting Diagnosis supratherapeutic Dilantin level, altered mental status, delirium (1) Altered mental status ICD Code: R41.82 (2) supratherapeutic dilantin level Procedures None. Brief History - From Admission History from ER physician communication, review of medical records, and nursing staff. Patient is known to me from her prior hospitalization on May 26, 2016. At that time, I did speak with patient's daughter extensively. Therefore most of the history at that time was taken from the daughter. Today, patient was accompanied by her son. Her son was present both in emergency room and on medical floors and therefore discussed extensively with the ER physician and nursing staff on medical floors. History is therefore taken from these staff members. Patient herself is elderly lady who is quite sedated at the time of my arrival and sleeping. She also does have history of dementia. Essentially, patient was brought in by EMS because patient's son checked on her earlier today and noted that patient was lethargic and altered. According to the EMS, patient's baseline GCS is 15 and that patient walks with a walker. Patient was not able to ambulate when they evaluated her in her house and noted that her GCS was 14. EMS found her blood sugar to be normal and she was alert and oriented to person but was unable to answer month or year. While in emergency room, patient was verbally communicative but mostly asking staff members "why are you doing this to me". Patient was also able to answer some questions and denied headache/chest pain/ shortness of breath/nausea/vomiting/abdominal pains according to ER notes. At the time of my arrival, patient is quite sedated. She did receive Ativan 1 mg IV around 2130 CBC/BMP: 12/02/16 0605 12/02/16 0605 Significant Findings Laboratory Tests Test 12/01/16 12/01/16 12/02/16 12/04/16 19:20 20:05 06:05 07:05 Urine Leukocyte Esterase TRACE (NEG) Urine Bacteria RARE /hpf (NONE) White Blood Count 3.4 TH/MM3 3.6 TH/MM3 (4.0-11.0) (4.0-11.0) Red Blood Count 3.57 MIL/MM3 3.71 MIL/MM3 (4.00-5.30) (4.00-5.30) Hemoglobin 11.1 GM/DL (11.6-15.3) Hematocrit 33.7 % (35.0-46.0) Lymphocytes (%) (Auto) 44.7 % (9.0-44.0) Monocytes (%) (Auto) 11.9 % 10.7 % (0.0-8.0) (0.0-8.0) Eosinophils (%) (Auto) 5.0 % (0.0-4.0) 4.5 % (0.0-4.0) Neutrophils # (Auto) 1.3 TH/MM3 (1.8-7.7) Prothrombin Time 13.9 SEC (9.8-11.6) Activated Partial 43.8 SEC Thromboplast Time (24.3-30.1) Potassium Level 5.4 MEQ/L (3.5-5.1) Blood Urea Nitrogen 42 MG/DL (7-18) 37 MG/DL (7-18) Creatinine 1.47 MG/DL 1.08 MG/DL (0.50-1.00) (0.50-1.00) Estimat Glomerular Filtration 41 ML/MIN (>89) 58 ML/MIN (>89) Rate Random Glucose 117 MG/DL (74-106) Aspartate Amino Transf 44 U/L (15-37) (AST/SGOT) Alkaline Phosphatase 179 U/L (45-117) Albumin 3.3 GM/DL (3.4-5.0) Phenytoin (Dilantin) Level 33.9 MCG/ML 31.9 MCG/ML 22.2 MCG/ML (10.0-20.0) (10.0-20.0) (10.0-20.0) Imaging Last Impressions Head CT 12/01/161913 Signed Impressions: Service Date/Time: Thursday, December 01, 2016 19:48 - CONCLUSION: 1. No acute intracranial abnormality. 2. Extensive chronic small vessel ischemic change. Kris Ramírez Jr., MD Chest X-Ray 5/30/17 1914 Signed Impressions: Service Date/Time: Thursday, December 01, 2016 19:35 - CONCLUSION: Cardiomegaly. Hyperinflation suggesting COPD. Kris Ramírez Jr., MD Hip and Pelvis X-Ray 12/01/16 0000 Signed Impressions: Service Date/Time: Thursday, December 01, 2016 19:36 - CONCLUSION: 1. Advanced chronic changes involving the right hip as detailed above. No acute abnormality. Kris Ramírez Jr., MD PE at Discharge GENERAL: Alert, NAD. SKIN: Warm and dry. HEAD: Normocephalic. EYES: No scleral icterus. No injection or drainage. NECK: Supple, trachea midline. No JVD or lymphadenopathy. CARDIOVASCULAR: Regular rate and rhythm without murmurs, gallops, or rubs. RESPIRATORY: Breath sounds equal bilaterally. No accessory muscle use. GASTROINTESTINAL: Abdomen soft, non-tender, nondistended. MUSCULOSKELETAL: No cyanosis, or edema. BACK: Nontender without obvious deformity. No CVA tenderness. Pt update on day of discharge Patient is currently doing well. Denies any chest pain, shortness of breath, fever or chills. Wants to go to rehabilitation. Hospital Course Ms. Baxter is an 85 year old with a history of Afib who presented to the ED on 12/01/2016 due to altered mental status. She was found to be lethargic and altered. Her dilantin level was found to be elevated. - Altered mental status - Etiology unknown, could be due to elevated Dilantin level. - Continue to monitor Dilantin level. 33.9 --> 31.9 --> 22.2 - Acute kidney injury - Creatinine improved from 1.47 --> 1.08. - Hyperkalemia - K+ 5.4 --> 3.6. Resolved. - Hypertension - Atrial fibrillation - Hyperlipidemia - Continue Amlodipine 5mg Qday, Carvedilol 6.25mg BID, Dabigatran 150mg BID , Atorvastatin 20mg QHS. Full code. Dabigatran. Pt Condition on Discharge: Good Discharge Disposition: Discharge to SNF Discharge Time: > 30 minutes Discharge Instructions DIET: Follow Instructions for: Heart Healthy Diet Speech Therapy-Diet Recommends: Pureed Activities you can perform: Regular-No Restrictions Follow up Referrals: SNF/[facility]/ Continued Medications: Alprazolam (Xanax) 0.25 Mg Tab 0.125 MG PO Q8HR PRN ANXIETY #90 TAB (This prescription has been renewed) Amlodipine (Norvasc) 5 Mg Tab 5 MG PO DAILY #30 TAB Atorvastatin (Atorvastatin) 20 Mg Tab 20 MG PO HS Cholesterol Management #30 Ref 0 TAB Carvedilol (Carvedilol) 6.25 Mg Tab 6.25 MG PO BID #60 Ref 0 TAB Dabigatran (Pradaxa) 150 Mg Cap 150 MG PO BID Blood Clot Prevention #60 Ref 0 CAP Levetiracetam (Levetiracetam) 500 Mg Tab 500 MG PO Q6HR Control Seizures #120 Ref 0 TAB Quetiapine (Seroquel) 25 Mg Tab 12.5 MG PO HS Agitation #30 Ref 0 TAB Torsemide (Torsemide) 20 Mg Tab 20 MG PO DAILY #30 Ref 0 TAB Discontinued Medications: Aspirin (Aspirin) 325 Mg Tab 325 MG PO DAILY #30 Ref 0 TAB Fentanyl Patch 72 HR (Duragesic Patch 72 HR) 25 Mcg/Hr Patch 1 PATCH TD Q3D #10 Hydrocodone-Acetaminophen (Hydrocodone-Acetaminophen) 5-325 mg Tab 1 TAB PO Q6HR PRN Pain 5-10 #40 TAB Phenytoin Extended (Dilantin) 100 Mg Cap 100 MG PO Q8HR #90 CAP Enedina Mathias DO Dec 04, 2016 9:44 am
[2016-12-04] MEDS: CARVEDILOL 6.25 MG TAB PO SCH ×2 (09:48→21:13)
[2016-12-04] MEDS: DABIGATRAN ETEXILATE 150 MG CAP PO SCH ×2 (09:48→21:13)
[2016-12-04] MEDS: ASPIRIN 325 MG TAB PO SCH (09:48)
[2016-12-04] MEDS: TORSEMIDE 20 MG TAB PO SCH (09:48)
[2016-12-04] MEDS: amLODIPine BESYLATE 5 MG TAB PO SCH (09:48)
[2016-12-04] MEDS: SODIUM CHLORIDE 0.9% FLUSH 10 ML FLUSH IV FLUSH SCH ×2 (09:49→21:13)
--- NOTE | 2016-12-04 13:05 | HHI.PR ---
Subjective Remarks Follow-up for acute mental status change, Dilantin toxicity. Patient is currently doing well. Wants to go to rehabilitation. Objective Vitals Vital Signs Date Time Temp Pulse Resp B/P Pulse Ox O2 Delivery O2 Flow Rate FiO2 12/04/16 12:24 97.3 68 20 106/59 94 12/04/16 08:51 97.5 78 20 130/68 99 12/04/16 04:00 Room Air 12/04/16 04:00 96.7 67 15 122/75 94 12/04/16 00:00 97.0 91 18 120/77 95 12/04/16 00:00 Room Air 12/03/16 20:00 96.3 80 20 116/60 96 12/03/16 20:00 64 12/03/16 20:00 Room Air 12/03/16 16:02 97.3 80 20 104/66 97 I/O 12/03/16 12/03/16 12/03/16 12/04/16 12/04/16 12/04/16 07:00 15:00 23:00 07:00 15:00 23:00 Intake Total 120 ml 100 ml Balance 120 ml 100 ml Intake Oral 120 ml 100 ml # Voids 1 2 3 Result Diagram: 12/02/1660412/02/16604 Objective Remarks GENERAL: Alert, NAD. SKIN: Warm and dry. HEAD: Normocephalic. EYES: No scleral icterus. No injection or drainage. NECK: Supple, trachea midline. No JVD or lymphadenopathy. CARDIOVASCULAR: Regular rate and rhythm without murmurs, gallops, or rubs. RESPIRATORY: Breath sounds equal bilaterally. No accessory muscle use. GASTROINTESTINAL: Abdomen soft, non-tender, nondistended. MUSCULOSKELETAL: No cyanosis, or edema. BACK: Nontender without obvious deformity. No CVA tenderness. Procedures None. A/P Problem List: (1) Altered mental status ICD Code: R41.82 Status: Acute (2) supratherapeutic dilantin level Status: Acute Assessment and Plan Ms. Baxter is an 85 year old with a history of Afib who presented to the ED on 12/01/2016 due to altered mental status. She was found to be lethargic and altered. Her dilantin level was found to be elevated. - Altered mental status - Etiology unknown, could be due to elevated Dilantin level. - Continue to monitor Dilantin level. 33.9 --> 31.9--> 22.2 - Acute kidney injury - Creatinine improved from 1.47 --> 1.08. - Hyperkalemia - K+ 5.4 --> 3.6. Resolved. - Hypertension - Atrial fibrillation - Hyperlipidemia - Continue Amlodipine 5mg Qday, Carvedilol 6.25mg BID, Dabigatran 150mg BID , Atorvastatin 20mg QHS. Full code. Dabigatran. Likely discharge this weekend. Problem Qualifiers (1) Altered mental status: Qualified Code: R41.0 - Delirium Enedina Mathias DO Dec 04, 2016 1:05 pm
[2016-12-04] MEDS: QUEtiapine FUMARATE 25 MG TAB PO SCH (21:13)
[2016-12-04] MEDS: ATORVASTATIN 20 MG TAB PO SCH (21:13)
[2016-12-05] VITALS (8 sets, daily range): BP systolic 99–116; BP diastolic 55–78; PULSE 58–69; RESP 15–18; TEMP 96.6–97.5; O2SAT 95–96
[2016-12-05] MEDS: levETIRAcetam 500 MG TAB PO SCH ×5 (01:06→22:48)
--- NOTE | 2016-12-05 08:02 | HHI.PR ---
Subjective Remarks Follow-up for acute mental status change, Dilantin toxicity. Patient is doing well. She appears to be more coherent today. No fever, chills. She wants to go home. Objective Vitals Vital Signs Date Time Temp Pulse Resp B/P Pulse Ox O2 Delivery O2 Flow Rate FiO2 12/05/16 04:00 96.9 60 15 110/58 95 12/05/16 00:00 96.6 61 15 114/60 95 12/04/16 21:00 95 Room Air 21 12/04/16 21:00 60 12/04/16 20:00 96.2 64 15 99/55 95 12/04/16 16:00 96.3 68 20 108/56 97 12/04/16 16:00 96.3 113 12 105/53 96 12/04/16 12:24 97.3 68 20 106/59 94 12/04/16 08:51 97.5 78 20 130/68 99 I/O 12/04/16 12/04/16 12/04/16 12/05/16 12/05/16 12/05/16 07:00 15:00 23:00 07:00 15:00 23:00 Intake Total 400 ml 480 ml Output Total 4 ml Balance 396 ml 480 ml Intake Oral 400 ml 480 ml Output Urine Total 4 ml # Voids 3 3 4 # Bowel Movements 2 Result Diagram: 12/02/1660412/02/16604 Imaging Last Impressions Head CT 12/01/161913 Signed Impressions: Service Date/Time: Thursday, December 01, 2016 19:48 - CONCLUSION: 1. No acute intracranial abnormality. 2. Extensive chronic small vessel ischemic change. Kris Ramírez Jr., MD Chest X-Ray 12/01/161913 Signed Impressions: Service Date/Time: Thursday, December 01, 2016 19:35 - CONCLUSION: Cardiomegaly. Hyperinflation suggesting COPD. Kris Ramírez Jr., MD Hip and Pelvis X-Ray 12/01/16 0000 Signed Impressions: Service Date/Time: Thursday, December 01, 2016 19:36 - CONCLUSION: 1. Advanced chronic changes involving the right hip as detailed above. No acute abnormality. Kris Ramírez Jr., MD Objective Remarks GENERAL: Alert, NAD. SKIN: Warm and dry. HEAD: Normocephalic. EYES: No scleral icterus. No injection or drainage. NECK: Supple, trachea midline. No JVD or lymphadenopathy. CARDIOVASCULAR: Regular rate and rhythm without murmurs, gallops, or rubs. RESPIRATORY: Breath sounds equal bilaterally. No accessory muscle use. GASTROINTESTINAL: Abdomen soft, non-tender, nondistended. MUSCULOSKELETAL: No cyanosis, or edema. BACK: Nontender without obvious deformity. No CVA tenderness. Procedures None. A/P Problem List: (1) Altered mental status ICD Code: R41.82 Status: Acute (2) supratherapeutic dilantin level Status: Acute Assessment and Plan Ms. Baxter is an 85 year old with a history of Afib who presented to the ED on 12/01/2016 due to altered mental status. She was found to be lethargic and altered. Her dilantin level was found to be elevated. - Altered mental status - History of Seizure activity - Etiology unknown, could be due to elevated Dilantin level. - Continue to monitor Dilantin level. 33.9 --> 31.9--> 22.2 --> 20.5. - Will consult Neurology to get recommendations on seizure medications. Patient's daughter also requests a neurology consult. - Acute kidney injury - Creatinine improved from 1.47 --> 1.08. - Hyperkalemia - K+ 5.4 --> 3.6. Resolved. - Hypertension - Atrial fibrillation - Hyperlipidemia - Continue Amlodipine 5mg Qday, Carvedilol 6.25mg BID, Dabigatran 150mg BID , Atorvastatin 20mg QHS. Full code. Dabigatran. Problem Qualifiers (1) Altered mental status: Qualified Code: R41.0 - Delirium Enedina Mathias DO Dec 05, 2016 8:02 am
[2016-12-05] MEDS: amLODIPine BESYLATE 5 MG TAB PO SCH (09:00)
[2016-12-05] MEDS: SODIUM CHLORIDE 0.9% FLUSH 10 ML FLUSH IV FLUSH SCH ×2 (09:00→20:08)
[2016-12-05] MEDS ORDERED: ACETAMINOPHEN 500 MG CPLT PO PRN (09:00)
[2016-12-05] MEDS: ASPIRIN 325 MG TAB PO SCH (09:53)
[2016-12-05] MEDS: TORSEMIDE 20 MG TAB PO SCH (09:53)
[2016-12-05] MEDS: DABIGATRAN ETEXILATE 150 MG CAP PO SCH ×2 (09:53→20:05)
[2016-12-05] MEDS: CARVEDILOL 6.25 MG TAB PO SCH ×2 (09:53→20:05)
[2016-12-05] MEDS: traMADol HCL 50 MG TAB PO PRN ×2 (12:11→20:47)
[2016-12-05] MEDS: ATORVASTATIN 20 MG TAB PO SCH (20:05)
[2016-12-05] MEDS: QUEtiapine FUMARATE 25 MG TAB PO SCH (20:05)
[2016-12-05] MEDS: DOCUSATE SODIUM 50 MG/SENNA 8.6 MG TAB PO SCH (20:47)
[2016-12-05] MEDS ORDERED: BISACODYL 10 MG SUPP RECTAL ONE (22:30)
[2016-12-05] MEDS ORDERED: ALPRAZolam 0.25 MG TAB PO ONE (22:30)
[2016-12-06] VITALS (8 sets, daily range): BP systolic 97–118; BP diastolic 59–78; PULSE 60–69; RESP 16–18; TEMP 96.3–97.4; O2SAT 95–98
[2016-12-06] MEDS: levETIRAcetam 500 MG TAB PO SCH ×3 (05:17→17:34)
[2016-12-06] MEDS: ASPIRIN 325 MG TAB PO SCH (08:57)
[2016-12-06] MEDS: TORSEMIDE 20 MG TAB PO SCH (08:57)
[2016-12-06] MEDS: DOCUSATE SODIUM 50 MG/SENNA 8.6 MG TAB PO SCH ×2 (08:57→20:16)
[2016-12-06] MEDS: CARVEDILOL 6.25 MG TAB PO SCH ×2 (08:57→20:14)
[2016-12-06] MEDS: amLODIPine BESYLATE 5 MG TAB PO SCH (08:57)
[2016-12-06] MEDS: DABIGATRAN ETEXILATE 150 MG CAP PO SCH ×2 (08:57→20:14)
[2016-12-06] MEDS: SODIUM CHLORIDE 0.9% FLUSH 10 ML FLUSH IV FLUSH SCH ×2 (08:58→20:29)
--- NOTE | 2016-12-06 09:01 | MB ---
cc: ALEX BROWER MD DATE OF CONSULTATION: 12/06/2016 REASON FOR CONSULTATION: Seizure, altered mental status, dilantin toxicity. HISTORY OF PRESENT ILLNESS Ms. Baxter is an 86-year-old female who upon arrival to the emergency room at [facility] was sedated and sleepy. The patient has history of dementia and the patient's son checked on her earlier and she was lethargic with altered mental status. The medical history is obtained mainly from medical records as the patient is a poor historian. The patient walks with a walker at baseline. REVIEW OF SYSTEMS 12-point review of systems negative except for what is stated in the HPI. PAST MEDICAL HISTORY 1. Hypertension. 2. Coronary artery disease. 3. Atrial fibrillation. 4. Sick sinus syndrome status post the AICD pacemaker placement. 5. History of two strokes with residual left-sided weakness. 6. 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 PAST SURGICAL HISTORY: 1. Coronary angiogram. 2. AICD pacemaker placement. 3. Right hip placement. 4. Partial hysterectomy. 5. Cervical fusion ALLERGIES DARVOCET FAMILY HISTORY: Strong family history of cancer. SOCIAL HISTORY: Cigarette smoker, quit several years ago. Denies alcohol or drug abuse. PHYSICAL EXAMINATION General: This is a thin, emaciated elderly lady, awake, alert, poor historian, calm, in no acute distress. HEENT: Atraumatic, normocephalic. No dentures. Intact vision. Neck: No meningeal irritation. No carotid bruits. Cardiovascular: Regular rate and rhythm. Respiratory: Clear to auscultation. No wheezes. Gastrointestinal: Soft, nontender. Musculoskeletal: Emaciated. No clubbing, cyanosis, loss of muscle bulk. Neurological: Awake, alert. She is oriented to person, place and time. Slurred speech/questionable chronic. Cranial nerves grossly intact. Motor sensory, cerebellar not able to assess because of lack of cooperation during the exam, but the examination revealed a left-sided spastic hemiparesis with a great deal of loss of muscle bulk, generalized. Upper extremities and lower extremities reflexes, left upgoing toe. DIAGNOSTIC IMAGING - Head CT scan without contrast revealed no acute intracranial abnormality. Extensive chronic small vessel ischemic changes. DIAGNOSTIC IMPRESSION 1. Encephalopathy. 2. Dilantin toxicity. 3. 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 4. Dementia 5. Post-stroke seizures. 6. DANIELLE. 7. Hypertension. 8. Hyperlipidemia. PLAN: 1. Neuro checks q4 hourly. 2. Hold Dilantin. Dilantin level is trending down. 3. Dilantin level in the a.m. 4. Seizure precautions. 5. Fall precautions. 6. DVT prophylaxis. 7. GI prophylaxis. 8. PT OT recommendations are appreciated. Thank you for the opportunity to participate in the care of your patient. MD PATITO Ballard/JELANI /12:25 AM /7:52 AM MTDD
--- NOTE | 2016-12-06 13:53 | HHI.PR ---
Subjective Remarks Follow-up for acute mental status change, Dilantin toxicity. Patient is resting well. No acute concerns. Neurology evaluation was done. Objective Vitals Vital Signs Date Time Temp Pulse Resp B/P Pulse Ox O2 Delivery O2 Flow Rate FiO2 12/06/16 12:00 97.1 69 18 105/62 97 12/06/16 08:58 Room Air 12/06/16 08:39 96.4 65 18 113/62 97 12/06/16 04:00 96.9 64 18 107/78 97 12/06/16 00:00 96.9 62 17 118/61 95 12/05/16 22:00 19 12/05/16 20:24 96 Room Air 21 12/05/16 20:24 65 12/05/16 20:00 97.2 62 16 111/60 96 12/05/16 19:38 60 12/05/16 16:24 97.3 69 16 114/69 95 I/O 12/05/16 12/05/16 12/05/16 12/06/16 12/06/16 12/06/16 06:59 14:59 22:59 06:59 14:59 22:59 Intake Total 240 ml 120 ml 60 ml Output Total 500 ml Balance 240 ml 120 ml -440 ml Intake Oral 240 ml 120 ml 60 ml Output Urine Total 500 ml # Voids 4 2 4 # Bowel Movements 2 3 Result Diagram: 12/02/1660412/02/16604 Imaging Last Impressions Head CT 12/01/161913 Signed Impressions: Service Date/Time: Thursday, December 01, 2016 19:48 - CONCLUSION: 1. No acute intracranial abnormality. 2. Extensive chronic small vessel ischemic change. Kris Ramírez Jr., MD Chest X-Ray 12/01/161913 Signed Impressions: Service Date/Time: Thursday, December 01, 2016 19:35 - CONCLUSION: Cardiomegaly. Hyperinflation suggesting COPD. Kris Ramírez Jr., MD Hip and Pelvis X-Ray 12/01/16 0000 Signed Impressions: Service Date/Time: Thursday, December 01, 2016 19:36 - CONCLUSION: 1. Advanced chronic changes involving the right hip as detailed above. No acute abnormality. Kris Ramírez Jr., MD Objective Remarks GENERAL: Alert, NAD. SKIN: Warm and dry. HEAD: Normocephalic. EYES: No scleral icterus. No injection or drainage. NECK: Supple, trachea midline. No JVD or lymphadenopathy. CARDIOVASCULAR: Regular rate and rhythm without murmurs, gallops, or rubs. RESPIRATORY: Breath sounds equal bilaterally. No accessory muscle use. GASTROINTESTINAL: Abdomen soft, non-tender, nondistended. MUSCULOSKELETAL: No cyanosis, or edema. BACK: Nontender without obvious deformity. No CVA tenderness. Procedures None. A/P Problem List: (1) Altered mental status ICD Code: R41.82 Status: Acute (2) supratherapeutic dilantin level Status: Acute Assessment and Plan Ms. Baxter is an 85 year old with a history of Afib who presented to the ED on 12/01/2016 due to altered mental status. She was found to be lethargic and altered. Her dilantin level was found to be elevated. - Altered mental status - History of Seizure activity - Etiology unknown, could be due to elevated Dilantin level. - Continue to monitor Dilantin level. 33.9 --> 31.9--> 22.2 --> 20.5 --> 15.3. - Neurology consulted. Dilantin level is now in the therapeutic range. - Continue Keppra 500mg Q6hrs. - Will discuss with neurology on 12/07/2016 regarding seizure meds and possibly discharge patient on 12/07/2016. - Acute kidney injury - Creatinine improved from 1.47 --> 1.08. - Hyperkalemia - K+ 5.4 --> 3.6. Resolved. - Hypertension - Atrial fibrillation - Hyperlipidemia - Continue Amlodipine 5mg Qday, Carvedilol 6.25mg BID, Dabigatran 150mg BID , Atorvastatin 20mg QHS. Full code. Dabigatran. Likely discharge on 12/07/2016. Problem Qualifiers (1) Altered mental status: Qualified Code: R41.0 - Delirium Enedina Mathias DO Dec 06, 2016 1:53 pm
--- NOTE | 2016-12-06 17:19 | HHI.PR ---
Review/Management Diagnosis 1. Encephalopathy. 2. Dilantin toxicity, resolved 3. 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 4. Dementia 5. Post-stroke seizures. 6. DANIELLE. 7. Hypertension. 8. Hyperlipidemia. Plan 1. Neuro checks q4 hourly. 2. D/C Dilantin 3. Keppra 750mg Q12h 4. Seizure precautions. 5. Fall precautions. 6. DVT prophylaxis. 7. GI prophylaxis. 8. Non-focal neurologic exam, if done with medical work up, may release home 9. Follow up with outpatient neurology Diagnosis/Plan: Subjective Subjective Comments No reported seizures overnight Dilantin level is therapeutic [15.3] No new complaints Active Medications Current Medications Medications (Trade) Dose Ordered Sig/Cherelle Route Start Time Stop Time Status Last Admin (NS Flush) 2 ml UNSCH PRN IV FLUSH 12/01/16 22:00 (NS Flush) 2 ml BID IV FLUSH 12/02/16 09:00 12/06/16 08:58 (Narcan Inj) 0.4 mg UNSCH PRN IV 12/01/16 22:00 (Norvasc) 5 mg DAILY PO 12/02/16 09:00 12/06/16 08:57 (Aspirin) 325 mg DAILY PO 12/02/16 09:00 12/06/16 08:57 (Lipitor) 20 mg HS PO 12/02/16 21:00 12/05/16 20:05 (Coreg) 6.25 mg BID PO 12/02/16 09:00 12/06/16 08:57 (Pradaxa) 150 mg BID PO 12/02/16 09:00 12/06/16 08:57 (Keppra) 500 mg Q6HR PO 12/02/16 12:00 12/06/16 13:43 (SEROquel) 12.5 mg HS PO 12/02/16 21:00 12/05/16 20:05 (Demadex) 20 mg DAILY PO 12/02/16 09:00 12/06/16 08:57 (Pill Splitter) 1 ea UNSCH PRN OTHER 12/02/16 08:45 (Tylenol) 500 mg Q6H PRN PO 12/05/16 09:00 (Ultram) 50 mg Q8H PRN PO 12/05/16 09:00 12/05/16 20:47 (Monika-Colace) 1 tab BID PO 12/05/16 21:00 12/06/16 08:57 Allergies Allergies Coded Allergies Darvocet-N 100 (Verified Allergy, Severe, nausea and vomiting, 12/01/16) MRI PRECAUTION (Verified Allergy, Severe, 12/01/16) Review of Systems All other ROS: ROS reviewed as documented in chart Exam I&O / VS 12/05/16 12/05/16 12/06/16 15:00 23:00 07:00 Intake Total 240 ml 120 ml 60 ml Output Total 500 ml Balance 240 ml 120 ml -440 ml Intake Oral 240 ml 120 ml 60 ml Output Urine Total 500 ml # Voids 2 4 # Bowel Movements 2 3 Vital Signs Date Time Temp Pulse Resp B/P Pulse Ox O2 Delivery O2 Flow Rate FiO2 12/06/16 12:00 97.1 69 18 105/62 97 12/06/16 08:58 Room Air 12/06/16 08:44 60 12/06/16 08:39 96.4 65 18 113/62 97 12/06/16 04:00 96.9 64 18 107/78 97 12/06/16 00:00 96.9 62 17 118/61 95 12/05/16 22:00 19 12/05/16 20:24 96 Room Air 21 12/05/16 20:24 65 12/05/16 20:00 97.2 62 16 111/60 96 12/05/16 19:38 60 General: No acute distress Eye: EOMI Respiratory: Lungs CTA, Non-labored respirations Cardiology: Normal rate, Regular Rhythm Musculoskeletal: ROM Neurologic: Normal DTR's Objective Micro and Labs Laboratory Tests Test 12/06/16 06:47 Phenytoin (Dilantin) Level 15.3 Date/Time Procedure Status Source Growth 12/01/16 20:10 Aerobic Blood Culture - Final Complete Blood Peripheral NO GROWTH IN 5 DAYS 12/01/16 20:10 Anaerobic Blood Culture - Final Complete Blood Peripheral NO GROWTH IN 5 DAYS Mounika Carrillo MD Dec 06, 2016 17:19
[2016-12-06] MEDS: ATORVASTATIN 20 MG TAB PO SCH (20:15)
[2016-12-06] MEDS: QUEtiapine FUMARATE 25 MG TAB PO SCH (20:15)
[2016-12-06] MEDS: traMADol HCL 50 MG TAB PO PRN (20:27)
[2016-12-07] VITALS: BP 128/61; PULSE 66; RESP 16; TEMP 96.6; O2SAT 98
[2016-12-07] MEDS: levETIRAcetam 500 MG TAB PO SCH (00:07)
[2016-12-07 04:00] VITALS: BP 106/59; PULSE 63; RESP 16; TEMP 97.2; O2SAT 98
[2016-12-07] MEDS: traMADol HCL 50 MG TAB PO PRN ×3 (04:22→12:39)
[2016-12-07 08:00] VITALS: BP 100/54; PULSE 62; RESP 16; TEMP 96.1; O2SAT 97
[2016-12-07 08:33] VITALS: PULSE 60
[2016-12-07] MEDS ORDERED: LEVE250 PO (08:41)
[2016-12-07] MEDS ORDERED: levETIRAcetam 250 MG TAB PO SCH (09:00)
[2016-12-07] MEDS: CARVEDILOL 6.25 MG TAB PO SCH (09:00)
[2016-12-07] MEDS: amLODIPine BESYLATE 5 MG TAB PO SCH (09:00)
[2016-12-07] MEDS: DABIGATRAN ETEXILATE 150 MG CAP PO SCH (09:28)
[2016-12-07] MEDS: SODIUM CHLORIDE 0.9% FLUSH 10 ML FLUSH IV FLUSH SCH (09:28)
[2016-12-07] MEDS: TORSEMIDE 20 MG TAB PO SCH (09:28)
[2016-12-07] MEDS: ASPIRIN 325 MG TAB PO SCH (09:28)
[2016-12-07] MEDS: DOCUSATE SODIUM 50 MG/SENNA 8.6 MG TAB PO SCH (09:28)
--- NOTE | 2016-12-07 13:16 | HHI.PR ---
Subjective Remarks Follow-up for acute mental status change, Dilantin toxicity. Patient is somewhat difficult to understand but she is more coherent. No fever, chills. Objective Vitals Vital Signs Date Time Temp Pulse Resp B/P Pulse Ox O2 Delivery O2 Flow Rate FiO2 12/07/16 09:28 Room Air 12/07/16 08:33 60 12/07/16 08:00 96.1 62 16 100/54 97 12/07/16 05:23 18 12/07/16 04:00 97.2 63 16 106/59 98 12/07/16 00:00 96.6 66 16 128/61 98 12/06/16 23:00 61 12/06/16 20:00 96.3 68 16 97/59 98 12/06/16 19:05 Room Air 12/06/16 16:00 97.4 63 18 118/69 95 I/O 12/06/16 12/06/16 12/06/16 12/07/16 12/07/16 12/07/16 07:00 15:00 23:00 07:00 15:00 23:00 Intake Total 60 ml 480 ml 360 ml Output Total 500 ml Balance -440 ml 480 ml 360 ml Intake Oral 60 ml 480 ml 360 ml Output Urine Total 500 ml # Voids 1 1 2 1 # Bowel Movements 3 1 1 Imaging Last Impressions Head CT 12/01/161913 Signed Impressions: Service Date/Time: Thursday, December 01, 2016 19:48 - CONCLUSION: 1. No acute intracranial abnormality. 2. Extensive chronic small vessel ischemic change. Kris Ramírez Jr., MD Chest X-Ray 12/01/161913 Signed Impressions: Service Date/Time: Thursday, December 01, 2016 19:35 - CONCLUSION: Cardiomegaly. Hyperinflation suggesting COPD. Kris Ramírez Jr., MD Hip and Pelvis X-Ray 12/01/16 0000 Signed Impressions: Service Date/Time: Thursday, December 01, 2016 19:36 - CONCLUSION: 1. Advanced chronic changes involving the right hip as detailed above. No acute abnormality. Kris Ramírez Jr., MD Objective Remarks GENERAL: Alert, NAD. SKIN: Warm and dry. HEAD: Normocephalic. EYES: No scleral icterus. No injection or drainage. NECK: Supple, trachea midline. No JVD or lymphadenopathy. CARDIOVASCULAR: Regular rate and rhythm without murmurs, gallops, or rubs. RESPIRATORY: Breath sounds equal bilaterally. No accessory muscle use. GASTROINTESTINAL: Abdomen soft, non-tender, nondistended. MUSCULOSKELETAL: No cyanosis, or edema. BACK: Nontender without obvious deformity. No CVA tenderness. Procedures None. A/P Problem List: (1) Altered mental status ICD Code: R41.82 Status: Acute (2) supratherapeutic dilantin level Status: Acute Assessment and Plan Ms. Baxter is an 85 year old with a history of Afib who presented to the ED on 12/01/2016 due to altered mental status. She was found to be lethargic and altered. Her dilantin level was found to be elevated. - Altered mental status - History of Seizure activity - Etiology unknown, could be due to elevated Dilantin level. - Continue to monitor Dilantin level. 33.9 --> 31.9--> 22.2 --> 20.5 --> 15.3. - Neurology consulted. Dilantin level is now in the therapeutic range. - Keppra increased to 750mg Q12hrs. - Patient can be discharged today once SNF is arranged. - Acute kidney injury - Creatinine improved from 1.47 --> 1.08. - Hyperkalemia - K+ 5.4 --> 3.6. Resolved. - Hypertension - Atrial fibrillation - Hyperlipidemia - Continue Amlodipine 5mg Qday, Carvedilol 6.25mg BID, Dabigatran 150mg BID , Atorvastatin 20mg QHS. Full code. Dabigatran. Problem Qualifiers (1) Altered mental status: Qualified Code: R41.0 - Delirium Enedina Mathias DO Dec 07, 2016 1:16 pm
[2016-12-07 16:00] VITALS: BP 109/56; PULSE 63; RESP 20; TEMP 95.6; O2SAT 92
--- NOTE | 2016-12-08 17:02 | HHI.DS ---
Discharge Summary Admission Date Dec 03, 2016 at 4:47 pm Discharge Date: Dec 07, 2016 Admitting Diagnosis supratherapeutic Dilantin level, altered mental status, delirium (1) Altered mental status ICD Code: R41.82 (2) supratherapeutic dilantin level Procedures None. Brief History - From Admission History from ER physician communication, review of medical records, and nursing staff. Patient is known to me from her prior hospitalization on May 26, 2016. At that time, I did speak with patient's daughter extensively. Therefore most of the history at that time was taken from the daughter. Today, patient was accompanied by her son. Her son was present both in emergency room and on medical floors and therefore discussed extensively with the ER physician and nursing staff on medical floors. History is therefore taken from these staff members. Patient herself is elderly lady who is quite sedated at the time of my arrival and sleeping. She also does have history of dementia. Essentially, patient was brought in by EMS because patient's son checked on her earlier today and noted that patient was lethargic and altered. According to the EMS, patient's baseline GCS is 15 and that patient walks with a walker. Patient was not able to ambulate when they evaluated her in her house and noted that her GCS was 14. EMS found her blood sugar to be normal and she was alert and oriented to person but was unable to answer month or year. While in emergency room, patient was verbally communicative but mostly asking staff members "why are you doing this to me". Patient was also able to answer some questions and denied headache/chest pain/ shortness of breath/nausea/vomiting/abdominal pains according to ER notes. At the time of my arrival, patient is quite sedated. She did receive Ativan 1 mg IV around 2129 PE at Discharge GENERAL: Alert, NAD. SKIN: Warm and dry. HEAD: Normocephalic. EYES: No scleral icterus. No injection or drainage. NECK: Supple, trachea midline. No JVD or lymphadenopathy. CARDIOVASCULAR: Regular rate and rhythm without murmurs, gallops, or rubs. RESPIRATORY: Breath sounds equal bilaterally. No accessory muscle use. GASTROINTESTINAL: Abdomen soft, non-tender, nondistended. MUSCULOSKELETAL: No cyanosis, or edema. BACK: Nontender without obvious deformity. No CVA tenderness. Pt update on day of discharge Patient is doing well. No acute concerns. No seizure activities. Hospital Course Ms. Baxter is an 85 year old with a history of Afib who presented to the ED on 12/01/2016 due to altered mental status. She was found to be lethargic and altered. Her dilantin level was found to be elevated. - Altered mental status - History of Seizure activity - Etiology unknown, could be due to elevated Dilantin level. - Continue to monitor Dilantin level. 33.9 --> 31.9--> 22.2 --> 20.5 --> 15.3. - Neurology consulted. Dilantin level is now in the therapeutic range. - Keppra increased to 750mg Q12hrs. - Acute kidney injury - Creatinine improved from 1.47 --> 1.08. - Hyperkalemia - K+ 5.4 --> 3.6. Resolved. - Hypertension - Atrial fibrillation - Hyperlipidemia - Continue Amlodipine 5mg Qday, Carvedilol 6.25mg BID, Dabigatran 150mg BID , Atorvastatin 20mg QHS. Full code. Dabigatran. Pt Condition on Discharge: Good Discharge Disposition: Discharge to SNF Discharge Time: > 30 minutes Discharge Instructions DIET: Follow Instructions for: Heart Healthy Diet Speech Therapy-Diet Recommends: Pureed Activities you can perform: Regular-No Restrictions Follow up Referrals: SNF/[facility]/ New Medications: Levetiracetam (Keppra) 250 Mg Tab 750 MG PO Q12HR Seizure Control #60 TAB Continued Medications: Alprazolam (Xanax) 0.25 Mg Tab 0.125 MG PO Q8HR PRN ANXIETY #90 TAB (This prescription has been renewed) Amlodipine (Norvasc) 5 Mg Tab 5 MG PO DAILY #30 TAB Atorvastatin (Atorvastatin) 20 Mg Tab 20 MG PO HS Cholesterol Management #30 Ref 0 TAB Carvedilol (Carvedilol) 6.25 Mg Tab 6.25 MG PO BID #60 Ref 0 TAB Dabigatran (Pradaxa) 150 Mg Cap 150 MG PO BID Blood Clot Prevention #60 Ref 0 CAP Quetiapine (Seroquel) 25 Mg Tab 12.5 MG PO HS Agitation #30 Ref 0 TAB Torsemide (Torsemide) 20 Mg Tab 20 MG PO DAILY #30 Ref 0 TAB Discontinued Medications: Aspirin (Aspirin) 325 Mg Tab 325 MG PO DAILY #30 Ref 0 TAB Fentanyl Patch 72 HR (Duragesic Patch 72 HR) 25 Mcg/Hr Patch 1 PATCH TD Q3D #10 Hydrocodone-Acetaminophen (Hydrocodone-Acetaminophen) 5-325 mg Tab 1 TAB PO Q6HR PRN Pain 5-10 #40 TAB Levetiracetam (Levetiracetam) 500 Mg Tab 500 MG PO Q6HR Control Seizures #120 Ref 0 TAB Phenytoin Extended (Dilantin) 100 Mg Cap 100 MG PO Q8HR #90 CAP Enedina Mathias DO Dec 08, 2016 5:02 pm
== END 2016-12-07 20:03 | DRG 92 ==
LOC: NEPC 19:05 → NEDA 21:36 → INTOOBSV 21:36 → HOCA 22:56 → OBSVTOIN 12-03 16:47
PROVIDERS: ADMIT Hospitalist; ATTEND Hospitalist
DX: G92 Toxic encephalopathy (principal); I42.9 Cardiomyopathy, unspecified; N17.9 Acute kidney failure, unspecified; F03.90 Unspecified dementia, unspecified severity, without behavioral disturbance, psychotic disturbance, mood disturbance, and anxiety; I69.254 Hemiplegia and hemiparesis following other nontraumatic intracranial hemorrhage affecting left non-dominant side; T42.0X5A Adverse effect of hydantoin derivatives, initial encounter; I48.91 Unspecified atrial fibrillation; F41.9 Anxiety disorder, unspecified; J45.909 Unspecified asthma, uncomplicated; I10 Essential (primary) hypertension; K21.9 Gastro-esophageal reflux disease without esophagitis; R56.9 Unspecified convulsions; E87.5 Hyperkalemia; Z79.01 Long term (current) use of anticoagulants; Z95.810 Presence of automatic (implantable) cardiac defibrillator; Z87.891 Personal history of nicotine dependence
CPT/HCPCS: 70450; 71010; 73502; 80048; 80053; 80185; 81001; 82140; 82550; 83605; 84443; 84484; 85025; 85610; 85730; 87040; 96361; 96374; G0378; G8987-GP; G8988-GP; J2060; J7030

== ENCOUNTER 2017-01-21 12:32 | Observation (INO) | payer MEDICARE, OTHER ==
[~2017-01-21] VITALS: Ht 165.1 cm; Wt 44.7 kg
[~2017-01-21 12:32] MED LIST changes: -ASPI325T PO; -CIPR-9 PO; -COLA100C3 PO; -DILA100C PO; -FENT25T TD; -HYDR-3516 PO; +LEVE250 PO; -LEVE500T8 PO; -PANT40TA3 PO; -SIME80CH CHEW
[2017-01-21 13:24] VITALS: BP 132/72; PULSE 68; RESP 15; TEMP 97.8; O2SAT 97
[2017-01-21] MEDS ORDERED: SODIUM CHLORIDE 0.9% FLUSH 10 ML FLUSH IVF PRN (13:45)
--- NOTE | 2017-01-21 13:55 | PD ---
HPI Chief Complaint: Pain: Acute or Chronic Time Seen by Provider: 13:40 Travel History International Travel<30 days: No Contact w/Intl Traveler<30days: No Traveled to known affect area: No History of Present Illness HPI 86-year-old female had report of trip and fall 2 days ago injuring her left arm. She states she has chronic pain in her right leg that she is supposed to have a hip replacement for but given she had a stroke she was not able to get the surgery. She states that leg pain is been for a while. She states that she hit her head. There is no loss of consciousness. She denies any other concurrent complaints. She states today she had difficulty getting up off the toilet and her family called the ambulance for her to come. She has not seen a physician for the fall yet. History was supplemented by programming equipment operator who took report from ambulance team given patient is hard of hearing and states she does not recall some details PFSH Past Medical History Hx Anticoagulant Therapy: Yes (PRADAXA) Arthritis: Yes Asthma: Yes Atrial Fibrillation: Yes Autoimmune Disease: No Blood Disorders: No Anxiety: Yes Depression: No Heart Rhythm Problems: Yes Cancer: No Cardiovascular Problems: Yes (PACER ) High Cholesterol: No Chemotherapy: No Chest Pain: No Congestive Heart Failure: Yes COPD: No Cerebrovascular Accident: Yes (with Lt sided weakness ) Dementia: Yes Diabetes: No Diminished Hearing: Yes (right BOONE) Endocrine: No GERD: Yes Glaucoma: No Genitourinary: No Hiatal Hernia: No Hypertension: Yes Immune Disorder: No Implanted Vascular Access Dvce: Yes Kidney Stones: No Musculoskeletal: Yes Neurologic: Yes Psychiatric: No Reproductive: No Respiratory: No Migraines: No Radiation Therapy: No Renal Failure: No Seizures: Yes Sickle Cell Disease: No Sleep Apnea: No Thyroid Disease: No Ulcer: No : 11 Para: 11 Miscarriage: 0 : 0 Past Surgical History Abdominal Surgery: No AICD: Yes Arteriovenous Shunt: No Body Medical Devices: DEFIBRILLATOR Cardiac Surgery: Yes (AICD placed on 2005; coronary angiogram) Ear Surgery: No Endocrine Surgery: No Eye Surgery: Yes (Cataract surgery) Genitourinary Surgery: No Gynecologic Surgery: Yes (Partial Hysterectomy) Hysterectomy: Yes (partial) Insulin Pump: No Joint Replacement: No Oral Surgery: No Pacemaker: Yes Thoracic Surgery: No Other Surgery: Yes Social History Alcohol Use: No Tobacco Use: No Substance Use: No Allergies-Medications (Allergen,Severity, Reaction): Coded Allergies: Darvocet-N 100 (Verified Allergy, Severe, nausea and vomiting, 12/01/16) MRI PRECAUTION (Verified Allergy, Severe, 12/01/16) DIFIBRILLATOR Reported Meds & Prescriptions Reported Meds & Active Scripts Active Keppra (Levetiracetam) 250 Mg Tab 750 Mg PO Q12HR Xanax (Alprazolam) 0.25 Mg Tab 0.125 Mg PO Q8HR PRN Norvasc (Amlodipine Besylate) 5 Mg Tab 5 Mg PO DAILY Seroquel (Quetiapine Fumarate) 25 Mg Tab 12.5 Mg PO HS Pradaxa (Dabigatran) 150 Mg Cap 150 Mg PO BID Torsemide 20 Mg Tab 20 Mg PO DAILY Carvedilol 6.25 Mg Tab 6.25 Mg PO BID Atorvastatin (Atorvastatin Calcium) 20 Mg Tab 20 Mg PO HS Review of Systems ROS Limitations: Poor Historian Physical Exam Exam Limitations: Poor Historian Narrative General: 86 y/o patient in no apparent distress Skin: trauma noted to left upper arm with ecchymosis Eyes: Pupils equal NECK: no pain with range of motion in midline Cardiovascular: Regular rate and rhythm Respiratory: Normal respiratory effort noted Abdomen: soft, nontender, nondistended Extremities: Pain with palpation of left shoulder, no lacerations over, neurovascularly intact, no pain with rom of other joints Neuro: awake, sensation and motor grossly intact Data Data Last Documented VS Vital Signs Date Time Temp Pulse Resp B/P Pulse Ox O2 Delivery O2 Flow Rate FiO2 01/21/17 18:37 61 16 157/76 93 Room Air 01/21/17 13:24 97.8 Orders Basic Metabolic Panel (Bmp) (01/21/17 13:40) Complete Blood Count With Diff (01/21/17 13:40) Prothrombin Time / Inr (Pt) (01/21/17 13:40) Act Partial Throm Time (Ptt) (01/21/17 13:40) Urinalysis - C+S If Indicated (01/21/17 13:40) Pelvis, Ap Only (Routine) (01/21/17 13:40) Ct Brain W/O Iv Contrast(Rout) (01/21/17 13:40) Iv Access Insert/Monitor (01/21/17 13:40) Ecg Monitoring (01/21/17 13:40) Oximetry (01/21/17 13:40) Sodium Chloride 0.9% Flush (Ns Flush) (01/21/17 13:45) Femur (Ap & Lat/2vws) (01/21/17 13:40) Humerus (Min 2vws) (01/21/17 13:40) Chest, Single Ap (01/21/17 ) Cath For Specimen (01/21/17 16:43) Urine Culture (01/21/17 18:35) Ceftriaxone Inj (Rocephin Inj) (01/21/17 19:30) Labs Laboratory Tests Test 01/21/17 01/21/17 01/21/17 13:38 15:17 18:35 White Blood Count 3.4 TH/MM3 Red Blood Count 3.28 MIL/MM3 Hemoglobin 9.9 GM/DL Hematocrit 31.2 % Mean Corpuscular Volume 94.9 FL Mean Corpuscular Hemoglobin 30.3 PG Mean Corpuscular Hemoglobin 31.9 % Concent Red Cell Distribution Width 13.4 % Platelet Count 296 TH/MM3 Mean Platelet Volume 7.5 FL Neutrophils (%) (Auto) 57.1 % Lymphocytes (%) (Auto) 27.6 % Monocytes (%) (Auto) 12.6 % Eosinophils (%) (Auto) 1.9 % Basophils (%) (Auto) 0.8 % Neutrophils # (Auto) 2.0 TH/MM3 Lymphocytes # (Auto) 1.0 TH/MM3 Monocytes # (Auto) 0.4 TH/MM3 Eosinophils # (Auto) 0.1 TH/MM3 Basophils # (Auto) 0.0 TH/MM3 CBC Comment DIFF FINAL Differential Comment Sodium Level 144 MEQ/L Potassium Level 4.2 MEQ/L Chloride Level 109 MEQ/L Carbon Dioxide Level 28.4 MEQ/L Anion Gap 7 MEQ/L Blood Urea Nitrogen 13 MG/DL Creatinine 0.73 MG/DL Estimat Glomerular Filtration 92 ML/MIN Rate Random Glucose 88 MG/DL Calcium Level 8.7 MG/DL Prothrombin Time 14.4 SEC Prothromb Time International 1.3 RATIO Ratio Activated Partial 48.5 SEC Thromboplast Time Urine Color YELLOW Urine Turbidity CLEAR Urine pH 7.0 Urine Specific [place] 1.023 Urine Protein TRACE mg/dL Urine Glucose (UA) NEG mg/dL Urine Ketones TRACE mg/dL Urine Occult Blood NEG Urine Nitrite NEG Urine Bilirubin NEG Urine Urobilinogen 4.0 MG/DL Urine Leukocyte Esterase SMALL Urine RBC 11 /hpf Urine WBC 17 /hpf Urine Squamous Epithelial 1 /hpf Cells Urine Amorphous Sediment RARE Urine Bacteria RARE /hpf Urine Mucus FEW /lpf Microscopic Urinalysis Comment CATH-CULTURE IND MDM Medical Decision Making Medical Screen Exam Complete: Yes Emergency Medical Condition: Yes Medical Record Reviewed: Yes (pmh confirmed) Interpretation(s) CBC & BMP Diagram 01/21/17 13:38 Last 24 hours Impressions Pelvis X-Ray 01/21/17 1340 Signed Impressions: Service Date/Time: January 14:24 - CONCLUSION: No definite fracture identified on this rotated single view of the pelvis. Marked osteopenia. Severe osteoarthritis of the right hip similar to December 2013. Otto Mike MD Humerus X-Ray 01/21/17 1340 Signed Impressions: Service Date/Time: January 14:12 - CONCLUSION: Unremarkable examination of the left humerus. Pacemaker overlies left chest Otto Mkie MD Head CT 01/21/17 1340 Signed Impressions: Service Date/Time: January 15:32 - CONCLUSION: Large area of encephalomalacia in the high right parietal region. No subarachnoid or subdural hematoma is identified. Otto Mike MD Femur X-Ray 01/21/17 1340 Signed Impressions: Service Date/Time: January 14:25 - CONCLUSION: Unremarkable examination of the right femur. Severe osteoarthritis with bony remodeling of the right femoral head and hip Otto Mike MD Chest X-Ray 01/21/17 0000 Signed Impressions: Service Date/Time: January 15:58 - CONCLUSION: Pacemaker good position. Lungs are clear. Otto Mike MD ua mild uti- give rocephin Differential Diagnosis anemia, renal failure, uti, fracture.... Narrative Course will check labs, ua, imaging and reeval ua with uti, will dose with rocephin, unable to get hold of family, will discuss with hospitalist Physician Communication Physician Communication dr ariza states to have case management help assist with dcf and getting hold of family dr whitehead to follow Diagnosis Primary Impression: Generalized weakness Additional Impression: UTI (urinary tract infection) Qualified Code: N39.0 - Urinary tract infection without hematuria, site unspecified Lissa Peterson MD Jan 21, 2017 13:55
[2017-01-21 14:04] LABS: BASOPHIL % 0.8 % (0.0-2.0); EOSINOPHIL # 0.1 TH/MM3 (0-0.4); EOSINOPHIL % 1.9 % (0.0-4.0); HEMATOCRIT 31.2 % (35.0-46.0); HEMO FLAGS DIFF FINAL; LYMPH % 27.6 % (9.0-44.0); MEAN CELL VOLUME 94.9 FL (80.0-100.0); MEAN CORPUSCULAR HEMOGLOBIN 30.3 PG (27.0-34.0); MEAN CORPUSCULAR HGB CONC 31.9 % (32.0-36.0); MONO % 12.6 % (0.0-8.0); NEUT % 57.1 % (16.0-70.0); PLATELET COUNT 296 TH/MM3 (150-450); RED BLOOD COUNT 3.28 MIL/MM3 (4.00-5.30); RED CELL DISTRIBUTION WIDTH 13.4 % (11.6-17.2); WHITE BLOOD COUNT 3.4 TH/MM3 (4.0-11.0)
[2017-01-21 14:16] LABS: BICARBONATE 28.4 MEQ/L (21.0-32.0); POTASSIUM 4.2 MEQ/L (3.5-5.1)
--- NOTE | 2017-01-21 15:09 | RADRPT ---
EXAM DATE/TIME: 01/21/2017 14:12 [facility] COMPARISON: No previous studies available for comparison. INDICATIONS : Evaluate for trauma. MEDICAL HISTORY : Unobtainable SURGICAL HISTORY : Unobtainable ENCOUNTER: Initial ACUITY: 1 day PAIN SCORE: Non-responsive. LOCATION: Left Humerus FINDINGS: Two view examination of the left humerus demonstrates no evidence of fracture or dislocation. Bony m ineralization is normal. The soft tissue structures are intact. CONCLUSION: Unremarkable examination of the left humerus. Pacemaker overlies left chest Otto Mike MD on January 21, 2017 at 15:07 Board Certified Radiologist. This report was verified electronically.
--- NOTE | 2017-01-21 15:09 | RADRPT ---
EXAM DATE/TIME: 01/21/2017 14:25 [facility] COMPARISON: FEMUR RIGHT (AP & LAT/2VWS), December 18, 2013, 19:48. INDICATIONS : Evaluate for trauma. MEDICAL HISTORY : Unobtainable SURGICAL HISTORY : Unobtainable ENCOUNTER: Initial ACUITY: 1 day PAIN SCORE: Non-responsive. LOCATION: Right Femur FINDINGS: Two view examination of the right femur demonstrates no evidence of fracture or dislocation. Bony mi neralization is normal. The soft tissue structures are intact. CONCLUSION: Unremarkable examination of the right femur. Severe osteoarthritis with bony remodeling of the right femoral head and hip Otto Mike MD on January 21, 2017 at 15:08 Board Certified Radiologist. This report was verified electronically.
--- NOTE | 2017-01-21 15:13 | RADRPT ---
EXAM DATE/TIME: 01/21/2017 14:24 [facility] COMPARISON: No previous studies available for comparison. INDICATIONS : Trauma, pelvic pain. MEDICAL HISTORY : Unobtainable SURGICAL HISTORY : Unobtainable ENCOUNTER: Initial ACUITY: 1 day PAIN SCORE: Non-responsive. LOCATION: Bilateral pelvis FINDINGS: Single view of the pelvis was performed. The patient is quite osteopenic. The patient is rotated. There is marked arthritis of the right hip with bony remodeling and marked joint space n arrowing. No acute fracture is noted of the right hip. The left hip is unremarkable. Sacrum is jose te osteopenic. There is stool throughout the colon. CONCLUSION: No definite fracture identified on this rotated single view of the pelvis. Marked ost eopenia. Severe osteoarthritis of the right hip similar to December 2013. Otto Mike MD on January 21, 2017 at 15:03 Board Certified Radiologist. This report was verified electronically.
[2017-01-21 15:15] VITALS: BP 166/85; PULSE 61; RESP 16; O2SAT 95
[2017-01-21 15:47] LABS: APTT (PATIENT) 48.5 SEC (24.3-30.1); INTERNATIONAL NORMALIZED RATIO 1.3 RATIO; PROTHROMBIN TIME - PATIENT 14.4 SEC (9.8-11.6)
--- NOTE | 2017-01-21 16:05 | RADRPT ---
EXAM DATE/TIME: 01/21/2017 15:32 [facility] COMPARISON: Prior study 01/01/2017. INDICATIONS : Trauma, dementia. RADIATION DOSE: 39.74 CTDIvol (mGy) MEDICAL HISTORY : Seizures. Dementia. SURGICAL HISTORY : Defibrillator. Pacemaker .Hysterectomy. CSP Fusion. ENCOUNTER: Initial ACUITY: 1 day PAIN SCALE: Non-responsive LOCATION: Bilateral cranial TECHNIQUE: Multiple contiguous axial images were obtained of the head. Using automated exposure control and adjustment of the mA and/or kV according to patient size, radiation dose was kept as low as reasonably achievable to obtain optimal diagnostic quality images. DICOM format image data is av ailable electronically for review and comparison. FINDINGS: Noncontrast head CT demonstrates there is some encephalomalacia in the high right parie vandana region stable from the previous study. No subarachnoid or subdural hematoma is identified. Ther e is some temporal tip atrophy bilaterally, right greater than left. No acute skull fracture is iden tified. Suprasellar cistern is patent. CONCLUSION: Large area of encephalomalacia in the high right parietal region. No subarachnoid or subdural hematoma is identified. Otto Mike MD on January 21, 2017 at 15:54 Board Certified Radiologist. This report was verified electronically.
--- NOTE | 2017-01-21 16:21 | RADRPT ---
EXAM DATE/TIME: 01/21/2017 15:58 [facility] COMPARISON: CHEST SINGLE AP, December 01, 2016, 19:35. INDICATIONS : General weakness. MEDICAL HISTORY : Hypertension. Congestive heart failure. Gastroesophageal reflux disease. Seizures. Dementia. Afib . SURGICAL HISTORY : Defibrillator. Pacemaker .Hysterectomy. CSP Fusion ENCOUNTER: Initial ACUITY: 1 day PAIN SCORE: Non-responsive. LOCATION: Bilateral chest FINDINGS: A single view of the chest demonstrates the lungs to be symmetrically aerated without evidence of mas s, infiltrate or effusion. The cardia silhouette is enlarged. There is a left subclavian bipolar pace r in good position.. Osseous structures are intact. CONCLUSION: Pacemaker good position. Lungs are clear. Otto Mike MD on January 21, 2017 at 16:19 Board Certified Radiologist. This report was verified electronically.
[2017-01-21 18:37] VITALS: BP 157/76; PULSE 61; RESP 16; O2SAT 93
[2017-01-21 19:15] LABS: BACTERIA, URINE RARE /hpf; BLOOD, URINE NEG (NEG); GLUCOSE,URINE NEG (NEG); KETONE, URINE TRACE mg/dL (NEG); MUCUS URINE FEW /lpf (OCC); NITRITE,URINE NEG (NEG); SQUAMOUS EPITHELIAL CELL URINE 1 /hpf (0-5); URINE COLOR YELLOW (YELLW/STRAW)
[2017-01-21 19:16] LABS: COMMENT (UR) CATH-CULTURE IND; CULTURE IF INDICATED CATH CULTURE IND
[2017-01-21 19:21] VITALS: BP 152/83; PULSE 67; RESP 18; TEMP 99; O2SAT 98
[2017-01-21] MEDS ORDERED: cefTRIAXone INJ 1,000 MG in SODIUM CHLORIDE 0.9% INJ 100 ML IV ONE (19:30)
--- NOTE | 2017-01-21 20:15 | PD ---
Data Data Last Documented VS Vital Signs Date Time Temp Pulse Resp B/P Pulse Ox O2 Delivery O2 Flow Rate FiO2 01/21/17 19:21 99.0 67 18 152/83 98 Room Air Orders Basic Metabolic Panel (Bmp) (01/21/17 13:40) Complete Blood Count With Diff (01/21/17 13:40) Prothrombin Time / Inr (Pt) (01/21/17 13:40) Act Partial Throm Time (Ptt) (01/21/17 13:40) Urinalysis - C+S If Indicated (01/21/17 13:40) Pelvis, Ap Only (Routine) (01/21/17 13:40) Ct Brain W/O Iv Contrast(Rout) (01/21/17 13:40) Iv Access Insert/Monitor (01/21/17 13:40) Ecg Monitoring (01/21/17 13:40) Oximetry (01/21/17 13:40) Sodium Chloride 0.9% Flush (Ns Flush) (01/21/17 13:45) Femur (Ap & Lat/2vws) (01/21/17 13:40) Humerus (Min 2vws) (01/21/17 13:40) Chest, Single Ap (01/21/17 ) Cath For Specimen (01/21/17 16:43) Urine Culture (01/21/17 18:35) Ceftriaxone Inj (Rocephin Inj) (01/21/17 19:30) Labs Laboratory Tests Test 01/21/17 01/21/17 01/21/17 13:38 15:17 18:35 White Blood Count 3.4 TH/MM3 Red Blood Count 3.28 MIL/MM3 Hemoglobin 9.9 GM/DL Hematocrit 31.2 % Mean Corpuscular Volume 94.9 FL Mean Corpuscular Hemoglobin 30.3 PG Mean Corpuscular Hemoglobin 31.9 % Concent Red Cell Distribution Width 13.4 % Platelet Count 296 TH/MM3 Mean Platelet Volume 7.5 FL Neutrophils (%) (Auto) 57.1 % Lymphocytes (%) (Auto) 27.6 % Monocytes (%) (Auto) 12.6 % Eosinophils (%) (Auto) 1.9 % Basophils (%) (Auto) 0.8 % Neutrophils # (Auto) 2.0 TH/MM3 Lymphocytes # (Auto) 1.0 TH/MM3 Monocytes # (Auto) 0.4 TH/MM3 Eosinophils # (Auto) 0.1 TH/MM3 Basophils # (Auto) 0.0 TH/MM3 CBC Comment DIFF FINAL Differential Comment Sodium Level 144 MEQ/L Potassium Level 4.2 MEQ/L Chloride Level 109 MEQ/L Carbon Dioxide Level 28.4 MEQ/L Anion Gap 7 MEQ/L Blood Urea Nitrogen 13 MG/DL Creatinine 0.73 MG/DL Estimat Glomerular Filtration 92 ML/MIN Rate Random Glucose 88 MG/DL Calcium Level 8.7 MG/DL Prothrombin Time 14.4 SEC Prothromb Time International 1.3 RATIO Ratio Activated Partial 48.5 SEC Thromboplast Time Urine Color YELLOW Urine Turbidity CLEAR Urine pH 7.0 Urine Specific [place] 1.023 Urine Protein TRACE mg/dL Urine Glucose (UA) NEG mg/dL Urine Ketones TRACE mg/dL Urine Occult Blood NEG Urine Nitrite NEG Urine Bilirubin NEG Urine Urobilinogen 4.0 MG/DL Urine Leukocyte Esterase SMALL Urine RBC 11 /hpf Urine WBC 17 /hpf Urine Squamous Epithelial 1 /hpf Cells Urine Amorphous Sediment RARE Urine Bacteria RARE /hpf Urine Mucus FEW /lpf Microscopic Urinalysis Comment CATH-CULTURE IND MDM Medical Record Reviewed: Yes Supervised Visit with IRVING: No Narrative Course CBC & BMP Diagram 01/21/17 13:38 INR 1.3 Urinalysis: UTI likely The patient received one dose of Rocephin. The patient's contact, Duke Rust, has been called 3 times by me at 2 different phone numbers over the past 90 minutes with the ER stay now approaching 7 hours. Earlier in the ER course attempt to contact the patient's family members made as well. The patient is unsafe for discharge due to poor baseline functional status. The case to be discussed with the hospitalist service. Of note there is no case management available this evening until [address] Denise has accepted the patient as an overnight obs. Diagnosis Primary Impression: Generalized weakness Additional Impression: UTI (urinary tract infection) Qualified Code: N39.0 - Urinary tract infection without hematuria, site unspecified Admitting Information Admitting Physician Requests: Observation Abel Arriola MD Jan 21, 2017 20:15
--- NOTE | 2017-01-21 20:22 | HHI.HP ---
[facility] Alvarado Mccauley MD Admission Diagnosis AMS, UTI Diagnoses: (1) UTI (urinary tract infection) Diagnosis: Principal (2) Total self-care deficit Diagnosis: Principal (3) Seizure disorder Diagnosis: Principal (4) HTN (hypertension) Diagnosis: Principal Travel History International Travel<30 Days: No Contact w/Intl Traveler <30 Da: No Traveled to Known Affected Are: No History of Present Illness This is an 86-year-old female with a PMH of A. fib on Pradaxa, HTN, Anxiety, CHF (Echo 05/26/16 w/ EF 50%), h/o CVA, Chronic Hip Pain and AICD who was brought to the ER by EMS secondary to fall 2 days ago w/ complaints of left arm pain, right hip pain and right knee pain. Grandson (Thierry Chairez [phone] ) provided some history upon arrival. BP 132/72, HR 61, O2 sat 93% on RA, Temp 99.0. CBC at baseline. Chemistry unremarkable. UA with UTI. CXR with no acute findings. Pelvis X-ray with no definite fracture. Humerus X-ray negative. CT Head large area of encephalomalacia, no acute finding. Femur X- ray unremarkable exam of the right femur. Patient was to be discharged home from the ER, however multiple attempts to contact family for pickup were unsuccessful. Patient is wheelchair bound and unable to care for self, therefore we were asked to admit for observation and possible placement. Review of Systems ROS: 14 point review of systems otherwise negative. Past Family Social History Past Medical History PMH: A. fib on Pradaxa, HTN, Anxiety, CHF (Echo 05/26/16 w/ EF 50%), h/o CVA, Chronic Hip Pain and AICD Past Surgical History PAST SURGICAL HISTORY: AICD, Cataract Surgery, Partial Hysterectomy Allergies: Coded Allergies: Darvocet-N 100 (Verified Allergy, Severe, nausea and vomiting, 12/01/16) MRI PRECAUTION (Verified Allergy, Severe, 12/01/16) DIFIBRILLATOR Family History PAST FAMILY HISTORY: Reviewed. No h/o DM or CAD Social History PAST SOCIAL HISTORY: Negative for alcohol, tobacco or drugs. Physical Exam Vital Signs Vital Signs Date Time Temp Pulse Resp B/P Pulse Ox O2 Delivery O2 Flow Rate FiO2 01/21/17 19:21 99.0 67 18 152/83 98 Room Air 01/21/17 18:37 61 16 157/76 93 Room Air 01/21/17 15:15 61 16 166/85 95 Room Air 01/21/17 13:24 97.8 68 15 132/72 97 Physical Exam PE: GENERAL: Elderly female in no acute distress. HEENT: PERRLA, EOMI. No scleral icterus or conjunctival pallor. No lid lag or facial droop. CARDIOVASCULAR: Regular rate and rhythm. No obvious murmurs to auscultation. No chest tenderness to palpation. RESPIRATORY: No obvious rhonchi or wheezing. Clear to auscultation. Breath sounds equal bilaterally. GASTROINTESTINAL: Abdomen soft, non-tender, nondistended. BS normal. MUSCULOSKELETAL: Extremities without clubbing, cyanosis, or edema. No obvious deformities. LUE ecchymosis. NEUROLOGICAL: Awake, alert. No focal neurologic deficits. Moving both upper and lower extremities spontaneously. Laboratory Laboratory Tests Test 01/21/17 01/21/17 01/21/17 13:38 15:17 18:35 White Blood Count 3.4 Red Blood Count 3.28 Hemoglobin 9.9 Hematocrit 31.2 Mean Corpuscular Volume 94.9 Mean Corpuscular Hemoglobin 30.3 Mean Corpuscular Hemoglobin 31.9 Concent Red Cell Distribution Width 13.4 Platelet Count 296 Mean Platelet Volume 7.5 Neutrophils (%) (Auto) 57.1 Lymphocytes (%) (Auto) 27.6 Monocytes (%) (Auto) 12.6 Eosinophils (%) (Auto) 1.9 Basophils (%) (Auto) 0.8 Neutrophils # (Auto) 2.0 Lymphocytes # (Auto) 1.0 Monocytes # (Auto) 0.4 Eosinophils # (Auto) 0.1 Basophils # (Auto) 0.0 CBC Comment DIFF FINAL Differential Comment Sodium Level 144 Potassium Level 4.2 Chloride Level 109 Carbon Dioxide Level 28.4 Anion Gap 7 Blood Urea Nitrogen 13 Creatinine 0.73 Estimat Glomerular Filtration 92 Rate Random Glucose 88 Calcium Level 8.7 Prothrombin Time 14.4 Prothromb Time International 1.3 Ratio Activated Partial 48.5 Thromboplast Time Urine Color YELLOW Urine Turbidity CLEAR Urine pH 7.0 Urine Specific [place] 1.023 Urine Protein TRACE Urine Glucose (UA) NEG Urine Ketones TRACE Urine Occult Blood NEG Urine Nitrite NEG Urine Bilirubin NEG Urine Urobilinogen 4.0 Urine Leukocyte Esterase SMALL Urine RBC 11 Urine WBC 17 Urine Squamous Epithelial 1 Cells Urine Amorphous Sediment RARE Urine Bacteria RARE Urine Mucus FEW Microscopic Urinalysis Comment CATH-CULTURE IND Date/Time Procedure Status Source Growth 01/21/17 18:35 Urine Culture Received Urine Catheterized Urine Pending Result Diagram: 01/21/17 1338 01/21/178 Assessment and Plan Problem List: (1) UTI (urinary tract infection) ICD Code: N39.0 Status: Acute (2) Total self-care deficit ICD Code: R41.89 Status: Acute (3) HTN (hypertension) ICD Code: I10 Status: Acute (4) Seizure disorder ICD Code: G40.909 Status: Acute Assessment and Plan A/P: 1. UTI: U/a w/ mild UTI. Temp 99.0, no leukocytosis. S/p Rocephin in ER, will continue w/ IV Abx, follow up cultures. 2. Total Self Care Deficit: Pt wheelchair bound, was to be d/c'd home, family contacted on multiple occasions without success. Will admit for Observation, Case Management for assistance w/ placement, will attempt to contact family. Per records, Nadya Chairez [phone]. 3. HTN: BP 150-160's. Resume home medications, monitor BP. 4. Seizure Disorder: Controlled. No recent seizure activity. Resume home Keppra. 5. DVT Prophylaxis: SCD/Teds. 6. Social work for d/c planning as needed. 7. Case discussed w/ ER physician at length. Problem Qualifiers (1) UTI (urinary tract infection): Qualified Code: N39.0 - Urinary tract infection without hematuria, site unspecified Nancy Denise MD Jan 21, 2017 20:22
[2017-01-21] MEDS ORDERED: BISACODYL 10 MG SUPP RECTAL PRN (20:30)
[2017-01-21] MEDS ORDERED: LACTULOSE SYRUP 20 GM/30 ML CUP PO PRN (20:30)
[2017-01-21] MEDS ORDERED: SENNOSIDES 8.6 MG TAB PO PRN (20:30)
[2017-01-21] MEDS ORDERED: MAGNESIUM HYDROXIDE SUSP 30 ML CUP PO PRN (20:30)
[2017-01-21] MEDS ORDERED: ONDANSETRON HCL 4 MG/2 ML VIAL IVP PRN (20:30)
[2017-01-21] MEDS ORDERED: SODIUM CHLORIDE 0.9% FLUSH 10 ML FLUSH IV FLUSH PRN (20:30)
[2017-01-21] MEDS ORDERED: PILL SPLITTER OTHER PRN (20:45)
[2017-01-21] MEDS: SODIUM CHLORIDE 0.9% FLUSH 10 ML FLUSH IV FLUSH SCH (21:00)
[2017-01-21 21:02] VITALS: BP_SYST 152; BP_SYST 179; BP_DIAS 83; BP_DIAS 84; PULSE 61; PULSE 86; RESP 20; O2SAT 94; O2SAT 96
[2017-01-21 22:19] VITALS: BP 169/76
[2017-01-21] MEDS: CARVEDILOL 6.25 MG TAB PO SCH (22:25)
[2017-01-21] MEDS: DOCUSATE SODIUM 50 MG/SENNA 8.6 MG TAB PO SCH (22:25)
[2017-01-21] MEDS: DABIGATRAN ETEXILATE 150 MG CAP PO SCH (22:25)
[2017-01-21] MEDS: levETIRAcetam 250 MG TAB PO SCH (22:25)
[2017-01-21] MEDS: QUEtiapine FUMARATE 25 MG TAB PO SCH (22:26)
[2017-01-21] MEDS: ATORVASTATIN 20 MG TAB PO SCH (22:26)
[2017-01-22] VITALS (9 sets, daily range): BP systolic 110–178; BP diastolic 56–84; PULSE 59–74; RESP 16–20; TEMP 97.7–98.4; O2SAT 95–98
[2017-01-22 06:45] LABS: AUTOMATED NEUTROPHIL # 1.6 TH/MM3 (1.8-7.7); BASOPHIL % 1.3 % (0.0-2.0); EOSINOPHIL # 0.1 TH/MM3 (0-0.4); EOSINOPHIL % 3.6 % (0.0-4.0); HEMATOCRIT 27.2 % (35.0-46.0); HEMO FLAGS DIFF FINAL; LYMPH % 37.5 % (9.0-44.0); LYMPHOCYTE # 1.3 TH/MM3 (1.0-4.8); MEAN CORPUSCULAR HEMOGLOBIN 30.9 PG (27.0-34.0); MEAN CORPUSCULAR HGB CONC 32.9 % (32.0-36.0); MONO % 13.2 % (0.0-8.0); NEUT % 44.4 % (16.0-70.0); PLATELET COUNT 264 TH/MM3 (150-450); RED BLOOD COUNT 2.89 MIL/MM3 (4.00-5.30); RED CELL DISTRIBUTION WIDTH 13.1 % (11.6-17.2); WHITE BLOOD COUNT 3.5 TH/MM3 (4.0-11.0)
[2017-01-22 07:01] LABS: BICARBONATE 25.5 MEQ/L (21.0-32.0); POTASSIUM 4.1 MEQ/L (3.5-5.1)
[2017-01-22] MEDS: amLODIPine BESYLATE 5 MG TAB PO SCH (07:46)
[2017-01-22] MEDS: CARVEDILOL 6.25 MG TAB PO SCH ×2 (07:46→21:38)
[2017-01-22] MEDS: levETIRAcetam 250 MG TAB PO SCH ×2 (07:46→21:39)
[2017-01-22] MEDS: DOCUSATE SODIUM 50 MG/SENNA 8.6 MG TAB PO SCH ×2 (07:47→21:38)
[2017-01-22] MEDS: DABIGATRAN ETEXILATE 150 MG CAP PO SCH ×2 (07:47→21:38)
[2017-01-22] MEDS: TORSEMIDE 20 MG TAB PO SCH (07:47)
[2017-01-22] MEDS: SODIUM CHLORIDE 0.9% FLUSH 10 ML FLUSH IV FLUSH SCH ×2 (07:47→21:38)
--- NOTE | 2017-01-22 10:21 | HHI.PR ---
Subjective Remarks Follow up for fall, pain, inability to care for self. The patient states she is sore today but does not localize the pain. She is currently eating breakfast and complains of food getting "stuck". She states that just started happening recently. The patient is difficult to understand secondary to previous stroke. She denies any other medical complaints at this time. Objective Vitals Vital Signs Date Time Temp Pulse Resp B/P Pulse Ox O2 Delivery O2 Flow Rate FiO2 01/22/17 08:00 59 01/22/17 07:49 97.8 63 20 178/73 95 01/22/17 04:00 98.4 68 18 110/62 98 01/22/17 00:00 97.8 68 18 155/84 97 01/21/17 22:19 60 16 169/76 96 01/21/17 21:02 61 20 179/84 96 Room Air 01/21/17 19:21 99.0 67 18 152/83 98 Room Air 01/21/17 18:37 61 16 157/76 93 Room Air 01/21/17 15:15 61 16 166/85 95 Room Air 01/21/17 13:24 97.8 68 15 132/72 97 Result Diagram: 01/22/17 0554 01/22/17 0554 Imaging Last Impressions Pelvis X-Ray 01/21/17 1340 Signed Impressions: Service Date/Time: January 14:24 - CONCLUSION: No definite fracture identified on this rotated single view of the pelvis. Marked osteopenia. Severe osteoarthritis of the right hip similar to December 2013. Otto Mike MD Humerus X-Ray 01/21/17 1340 Signed Impressions: Service Date/Time: January 14:12 - CONCLUSION: Unremarkable examination of the left humerus. Pacemaker overlies left chest Otto Mike MD Head CT 01/21/17 1340 Signed Impressions: Service Date/Time: January 15:32 - CONCLUSION: Large area of encephalomalacia in the high right parietal region. No subarachnoid or subdural hematoma is identified. Otto Mike MD Femur X-Ray 01/21/17 1340 Signed Impressions: Service Date/Time: January 14:25 - CONCLUSION: Unremarkable examination of the right femur. Severe osteoarthritis with bony remodeling of the right femoral head and hip Otto Mike MD Chest X-Ray 01/21/17 0000 Signed Impressions: Service Date/Time: January 15:58 - CONCLUSION: Pacemaker good position. Lungs are clear. Otto Mike MD Objective Remarks GENERAL: Thin elderly female patient in NAD. SKIN: Warm and dry. No rash. HEENT: Normocephalic. Atraumatic. Pupils equal and round. Mucous membranes pink and moist. NECK: Supple. Trachea midline. CARDIOVASCULAR: Regular rate and rhythm. S1, S2 noted. No murmur appreciated. RESPIRATORY: No accessory muscle use. Clear to auscultation. Breath sounds equal bilaterally. GASTROINTESTINAL: Abdomen soft, non-tender, nondistended. Normoactive bowel sounds x4. MUSCULOSKELETAL: No obvious deformities. Extremities without clubbing, cyanosis , or edema. NEUROLOGICAL: Awake and alert. No obvious cranial nerve deficits. Left sided weakness. Normal speech. Medications and IVs Current Medications Medications (Trade) Dose Ordered Sig/Cherelle Route Start Time Stop Time Status Last Admin (Rocephin Inj/NS Inj) 100 ml @ 200 mls/hr Q24H IV 01/22/17 20:00 (NS Flush) 2 ml UNSCH PRN IV FLUSH 01/21/17 20:30 (NS Flush) 2 ml BID IV FLUSH 01/21/17 21:00 01/22/17 07:47 (Zofran Inj) 4 mg Q6H PRN IVP 01/21/17 20:30 (Tylenol) 650 mg Q6H PRN PO 01/21/17 20:30 (Monika-Colace) 1 tab BID PO 01/21/17 21:00 01/22/17 07:47 (Milk Of Magnesia Liq) 30 ml Q12H PRN PO 01/21/17 20:30 (Senokot) 17.2 mg Q12H PRN PO 01/21/17 20:30 (Dulcolax Supp) 10 mg DAILY PRN RECTAL 01/21/17 20:30 (Lactulose Liq) 30 ml DAILY PRN PO 01/21/17 20:30 (Xanax) 0.125 mg Q8H PRN PO 01/21/17 20:30 (Norvasc) 5 mg DAILY PO 01/22/17 09:00 01/22/17 07:46 (Lipitor) 20 mg HS PO 01/21/17 21:00 01/21/17 22:26 (Coreg) 6.25 mg BID PO 01/21/17 21:00 01/22/17 07:46 (Pradaxa) 150 mg BID PO 01/21/17 21:00 01/22/17 07:47 (Keppra) 750 mg Q12HR PO 01/21/17 21:00 01/22/17 07:46 (SEROquel) 12.5 mg HS PO 01/21/17 21:00 01/21/17 22:26 (Demadex) 20 mg DAILY PO 01/22/17 09:00 01/22/17 07:47 (Pill Splitter) 1 ea UNSCH PRN OTHER 01/21/17 20:45 A/P Problem List: (1) UTI (urinary tract infection) ICD Code: N39.0 Status: Acute (2) Total self-care deficit ICD Code: R41.89 Status: Acute (3) HTN (hypertension) ICD Code: I10 Status: Acute (4) Seizure disorder ICD Code: G40.909 Status: Acute Assessment and Plan 86-year-old female with a PMH of A. fib on Pradaxa, HTN, Anxiety, CHF (Echo w/ EF 50%), h/o CVA, Chronic Hip Pain and AICD who was brought to the ER by EMS secondary to fall 2 days ago w/ complaints of left arm pain, right hip pain and right knee pain. Grandson (Thierry Chairez [phone]) provided some history upon arrival. Patient was to be discharged home from the ER, however multiple attempts to contact family for pickup were unsuccessful. Patient is wheelchair bound and unable to care for self, therefore we were asked to admit for observation and possible placement. UTI: U/a w/ mild UTI. Temp 99.0, no leukocytosis. Continue w/ IV Rocephin, follow up urine culture. Fall with Weakness: suspect multifactorial, patient with hx of CVA with left sided weakness at baseline, wheelchair bound, UTI as above. CXR unremarkable. Pelvis X-ray with no definite fracture. Humerus X-ray negative. CT Head large area of encephalomalacia, no acute finding. Femur X-ray unremarkable exam of the right femur. Consult PT. Total Self Care Deficit: Pt wheelchair bound, was to be d/c'd home from ER however family contacted on multiple occasions without success. Case Management for assistance w/ placement, will attempt to contact family. Per records, Nadya Chairez [phone]. HTN: BP 150-160's, labile. Resume home medications, monitor BP. Seizure Disorder: Controlled. No recent seizure activity. Resume home Keppra. Anemia: CBC at baseline. No reported bleeding. Monitor. Dysphagia: patient reporting food getting stuck while eating breakfast. Consult ST. DVT Prophylaxis: SCD/Teds. Discharge Planning Discharge pending PT/ST evaluation and safe discharge arrangements by case management, either home with family or placement. 1400hrs: The patient has been seen by PT and ST. PT recommending rehab. ST recommending pureed food with thin liquids. The patient is medically stable for discharge. Discharge patient to SNF vs C Condition on discharge: Improved Regular Diet as tolerated, pureed Ad Ivet activity Rx written: Cefuroxime 500mg bid x3days Follow-up with primary care physician Dr. Mccauley within 1 week Attending Statement Patient stable seen in her bedroom, discussed with Iuss Acoustic Analyst she does not qualify for Inpatient admission and also do not qualify for correction management, will try to discharge home in am tomorrow. Problem Qualifiers (1) UTI (urinary tract infection): Qualified Code: N39.0 - Urinary tract infection without hematuria, site unspecified Tamie Benites PA-C Jan 22, 2017 10:21 Mychal Leonard MD Jan 22, 2017 17:08
[2017-01-22] MEDS: ACETAMINOPHEN 325 MG TAB PO PRN ×2 (10:42→15:49)
[2017-01-22] MEDS ORDERED: CEFU1TAB20 PO (13:59)
--- NOTE | 2017-01-22 14:00 | HHI.DCPOC ---
Discharge Care Plan Diagnosis: (1) Total self-care deficit (2) UTI (urinary tract infection) (3) HTN (hypertension) (4) Seizure disorder (5) Generalized weakness (6) History of CVA (cerebrovascular accident) Goals to Promote Your Health * To prevent worsening of your condition and complications * To maintain your health at the optimal level Directions to Meet Your Goals Take your medications as prescribed Follow your dietary instruction Follow activity as directed Keep your appointments as scheduled Take your immunizations and boosters as scheduled If your symptoms worsen call your PCP, if no PCP go to Urgent Care Center or Emergency Room Smoking is Dangerous to Your Health. Avoid second hand smoke Call the 24-hour hour crisis hotline for domestic abuse at Tamie Benites PA-C Jan 22, 2017 14:00
--- NOTE | 2017-01-22 14:47 | HHI.FF ---
Face to Face Verification Diagnosis: (1) Total self-care deficit (2) History of CVA (cerebrovascular accident) (3) Generalized weakness (4) UTI (urinary tract infection) (5) HTN (hypertension) (6) Seizure disorder Physical Therapy Order: Evaluate and Treat, Improve ambulation, Strength and gait training Occupational Therapy Order: Evaluate and Treat, Improve ADL Home Health Nursing Order: Medical education Signs/symptoms of disease process Nursing assessment with vital signs Home Health Aide Order: To Assist In: Bathing and personal care, vessel manager and meal prep I have seen patient Aida Baxter on 01/22/17. My clinical findings support the need for the requested home health care services because: Ltd mobility - disease progression Deconditioned w/ increased weakness Limited ability to care for self Impaired cognition/judgement I certify that my clinical findings support that this patient is homebound because: Unsteady gait/balance Unsafe to leave home unassisted Goj-[id number]-[id number] bed/chair Unable to use public transportation Tamie Benites PA-C Jan 22, 2017 14:47 Mychal Lenoard MD Jan 22, 2017 17:20
[2017-01-22] MEDS: ALPRAZolam 0.25 MG TAB PO PRN (16:14)
[2017-01-22] MEDS: cefTRIAXone INJ 1,000 MG in SODIUM CHLORIDE 0.9% INJ 100 ML IV SCH (21:37)
[2017-01-22] MEDS: QUEtiapine FUMARATE 25 MG TAB PO SCH (21:38)
[2017-01-22] MEDS: ATORVASTATIN 20 MG TAB PO SCH (21:38)
[2017-01-23] VITALS (10 sets, daily range): BP systolic 111–178; BP diastolic 46–75; PULSE 60–78; RESP 17–20; TEMP 97.5–98.6; O2SAT 95–98
--- NOTE | 2017-01-23 08:26 | HHI.PR ---
Subjective Remarks Follow up for fall, pain, inability to care for self. The patient complains about the right AC IV bothering her and wants it removed. Otherwise she denies any other medical complaints including no headache, lightheadedness, dizziness, chest pain, shortness of breath or abdominal complaints. She states she is eating and drinking well. She is asking when she can go home. Attempted to discuss SNF placement however patient states "no, I want to go home". Objective Vitals Vital Signs Date Time Temp Pulse Resp B/P Pulse Ox O2 Delivery O2 Flow Rate FiO2 01/23/17 04:26 97.9 62 18 139/66 95 01/23/17 04:00 60 01/23/17 00:16 97.6 60 17 111/75 97 01/22/17 23:58 60 01/22/17 20:21 63 01/22/17 20:00 98.4 74 18 121/62 97 01/22/17 15:37 98.0 66 18 118/56 96 01/22/17 11:24 97.7 65 16 139/63 95 I/O 01/22/17 01/22/17 01/22/17 01/23/17 01/23/17 01/23/17 07:00 15:00 23:00 07:00 15:00 23:00 Intake Total 350 ml Balance 350 ml Intake Oral 250 ml IV Total 100 ml # Voids 2 # Bowel Movements 1 Result Diagram: 01/22/17 0554 01/22/17 0554 Imaging Last Impressions Pelvis X-Ray 01/21/17 1340 Signed Impressions: Service Date/Time: January 14:24 - CONCLUSION: No definite fracture identified on this rotated single view of the pelvis. Marked osteopenia. Severe osteoarthritis of the right hip similar to December 2013. Otto Mike MD Humerus X-Ray 01/21/17 1340 Signed Impressions: Service Date/Time: January 14:12 - CONCLUSION: Unremarkable examination of the left humerus. Pacemaker overlies left chest Otto Mike MD Head CT 01/21/17 1340 Signed Impressions: Service Date/Time: January 15:32 - CONCLUSION: Large area of encephalomalacia in the high right parietal region. No subarachnoid or subdural hematoma is identified. Otto Mike MD Femur X-Ray 01/21/17 1340 Signed Impressions: Service Date/Time: January 14:25 - CONCLUSION: Unremarkable examination of the right femur. Severe osteoarthritis with bony remodeling of the right femoral head and hip Otto Mike MD Chest X-Ray 01/21/17 0000 Signed Impressions: Service Date/Time: January 15:58 - CONCLUSION: Pacemaker good position. Lungs are clear. Otto Mike MD Objective Remarks GENERAL: Thin elderly female patient in NAD. SKIN: Warm and dry. No rash. HEENT: Normocephalic. Atraumatic. Pupils equal and round. Mucous membranes pink and moist. NECK: Supple. Trachea midline. CARDIOVASCULAR: Regular rate and rhythm. S1, S2 noted. No murmur appreciated. RESPIRATORY: No accessory muscle use. Clear to auscultation. Breath sounds equal bilaterally. GASTROINTESTINAL: Abdomen soft, non-tender, nondistended. Normoactive bowel sounds x4. MUSCULOSKELETAL: No obvious deformities. Extremities without clubbing, cyanosis , or edema. NEUROLOGICAL: Awake and alert. No obvious cranial nerve deficits. Left sided weakness. Normal speech. Procedures None. Medications and IVs Current Medications Medications (Trade) Dose Ordered Sig/Cherelle Route Start Time Stop Time Status Last Admin (Rocephin Inj/NS Inj) 100 ml @ 200 mls/hr Q24H IV 01/22/17 20:00 01/22/17 21:37 (NS Flush) 2 ml UNSCH PRN IV FLUSH 01/21/17 20:30 (NS Flush) 2 ml BID IV FLUSH 01/21/17 21:00 01/22/17 21:38 (Zofran Inj) 4 mg Q6H PRN IVP 01/21/17 20:30 (Tylenol) 650 mg Q6H PRN PO 01/21/17 20:30 01/22/17 15:49 (Monika-Colace) 1 tab BID PO 01/21/17 21:00 01/22/17 21:38 (Milk Of Magnesia Liq) 30 ml Q12H PRN PO 01/21/17 20:30 (Senokot) 17.2 mg Q12H PRN PO 01/21/17 20:30 (Dulcolax Supp) 10 mg DAILY PRN RECTAL 01/21/17 20:30 (Lactulose Liq) 30 ml DAILY PRN PO 01/21/17 20:30 (Xanax) 0.125 mg Q8H PRN PO 01/21/17 20:30 01/22/17 16:14 (Norvasc) 5 mg DAILY PO 01/22/17 09:00 01/22/17 07:46 (Lipitor) 20 mg HS PO 01/21/17 21:00 01/22/17 21:38 (Coreg) 6.25 mg BID PO 01/21/17 21:00 01/22/17 21:38 (Pradaxa) 150 mg BID PO 01/21/17 21:00 01/22/17 21:38 (Keppra) 750 mg Q12HR PO 01/21/17 21:00 01/22/17 21:39 (SEROquel) 12.5 mg HS PO 01/21/17 21:00 01/22/17 21:38 (Demadex) 20 mg DAILY PO 01/22/17 09:00 01/22/17 07:47 (Pill Splitter) 1 ea UNSCH PRN OTHER 01/21/17 20:45 A/P Problem List: (1) UTI (urinary tract infection) ICD Code: N39.0 Status: Acute (2) Total self-care deficit ICD Code: R41.89 Status: Acute (3) HTN (hypertension) ICD Code: I10 Status: Acute (4) Seizure disorder ICD Code: G40.909 Status: Acute Assessment and Plan 86-year-old female with a PMH of A. fib on Pradaxa, HTN, Anxiety, CHF (Echo w/ EF 50%), h/o CVA, Chronic Hip Pain and AICD who was brought to the ER by EMS secondary to fall 2 days ago w/ complaints of left arm pain, right hip pain and right knee pain. Grandson (Thierry Chairez [phone]) provided some history upon arrival. Patient was to be discharged home from the ER, however multiple attempts to contact family for pickup were unsuccessful. Patient is wheelchair bound and unable to care for self, therefore we were asked to admit for observation and possible placement. UTI: U/a w/ mild UTI. Temp 99.0, no leukocytosis. Given IV Rocephin, however urine culture with no growth. Given symptoms of weakness, will complete treatment with 3days of antibiotics, then discontinue. Fall with Weakness: suspect multifactorial, patient with hx of CVA with left sided weakness at baseline, wheelchair bound, UTI as above. CXR unremarkable. Pelvis X-ray, Humerus, and Femur with no definite fracture. CT Head large area of encephalomalacia, no acute finding. Consult PT, recommends rehab however patient refuses, wants to go home, agrees to [facility]. Total Self Care Deficit: Pt wheelchair bound, was to be d/c'd home from ER however family contacted on multiple occasions without success. Case Management for assistance w/ placement, will attempt to contact family. Per records, Nadya Chairez [phone]. HTN: BP 150-160's, labile. Resume home medications, monitor BP. Seizure Disorder: Controlled. No recent seizure activity. Resume home Keppra. Anemia: CBC at baseline. No reported bleeding. Monitor. Dysphagia: patient reporting food getting stuck while eating breakfast. Consult ST, recommended pureed food with thin liquids. DVT Prophylaxis: SCD/Teds. Discharge Planning The patient is medically stable for discharge once safe discharge arrangements made. Likely can go home with family and [facility]. Patient refuses SNF Discharge patient to home with [facility] Condition on discharge: Improved Regular Diet as tolerated, pureed Ad Ivet activity Rx written: no new meds Follow-up with primary care physician Dr. Mccauley within 1 week Attending Statement The exam, history, and the medical decision-making described in the above note were completed with the assistance of the mid-level provider. I reviewed and agree with the findings presented. I attest that I had a [id number] encounter with the patient on the same day, and personally performed and documented my assessment and findings in the medical record. Seen in her bedroom, sleeping comfortable. Problem Qualifiers (1) UTI (urinary tract infection): Qualified Code: N39.0 - Urinary tract infection without hematuria, site unspecified Tamie Benites PA-C Jan 23, 2017 08:25 Mychal Leonard MD Jan 23, 2017 17:52
[2017-01-23] MEDS: levETIRAcetam 250 MG TAB PO SCH ×2 (08:48→21:20)
[2017-01-23] MEDS: CARVEDILOL 6.25 MG TAB PO SCH ×2 (08:48→21:20)
[2017-01-23] MEDS: amLODIPine BESYLATE 5 MG TAB PO SCH (08:48)
[2017-01-23] MEDS: TORSEMIDE 20 MG TAB PO SCH (08:48)
[2017-01-23] MEDS: SODIUM CHLORIDE 0.9% FLUSH 10 ML FLUSH IV FLUSH SCH ×2 (08:48→21:00)
[2017-01-23] MEDS: DOCUSATE SODIUM 50 MG/SENNA 8.6 MG TAB PO SCH ×2 (08:48→21:20)
[2017-01-23] MEDS: DABIGATRAN ETEXILATE 150 MG CAP PO SCH ×2 (08:48→21:19)
[2017-01-23] MEDS: cefTRIAXone INJ 1,000 MG in SODIUM CHLORIDE 0.9% INJ 100 ML IV SCH (20:00)
[2017-01-23] MEDS: ATORVASTATIN 20 MG TAB PO SCH (21:19)
[2017-01-23] MEDS: QUEtiapine FUMARATE 25 MG TAB PO SCH (21:20)
[2017-01-24 05:50] VITALS: BP 121/66; PULSE 74; RESP 18; TEMP 97.8; O2SAT 97
[2017-01-24 07:20] VITALS: BP 125/64; PULSE 64; RESP 14; TEMP 97.6; O2SAT 97
[2017-01-24] MEDS: TORSEMIDE 20 MG TAB PO SCH (08:59)
[2017-01-24] MEDS: levETIRAcetam 250 MG TAB PO SCH ×2 (08:59→21:18)
[2017-01-24] MEDS: ACETAMINOPHEN 325 MG TAB PO PRN (08:59)
[2017-01-24] MEDS: DABIGATRAN ETEXILATE 150 MG CAP PO SCH ×2 (09:00→21:17)
[2017-01-24] MEDS: amLODIPine BESYLATE 5 MG TAB PO SCH (09:00)
[2017-01-24] MEDS: DOCUSATE SODIUM 50 MG/SENNA 8.6 MG TAB PO SCH ×2 (09:00→21:00)
[2017-01-24] MEDS: CARVEDILOL 6.25 MG TAB PO SCH ×2 (09:00→21:17)
[2017-01-24] MEDS: SODIUM CHLORIDE 0.9% FLUSH 10 ML FLUSH IV FLUSH SCH ×2 (09:00→21:00)
--- NOTE | 2017-01-24 09:47 | HHI.PR ---
Subjective Remarks Follow up for fall, pain, inability to care for self. The patient is sleeping upon my arrival, easily awakens to touch. She denies any medical complaints today. She is asking when she can go home. Vital signs reviewed and stable. Objective Vitals Vital Signs Date Time Temp Pulse Resp B/P Pulse Ox O2 Delivery O2 Flow Rate FiO2 01/24/17 07:20 97.6 64 14 125/64 97 01/24/17 05:50 97.8 74 18 121/66 97 01/23/17 23:42 98.1 64 18 115/62 97 01/23/17 21:17 67 128/65 98 01/23/17 19:15 97.6 67 18 120/46 95 01/23/17 15:54 98.2 63 20 139/62 96 01/23/17 12:43 97.5 63 20 137/65 95 I/O 01/23/17 01/23/17 01/23/17 01/24/17 01/24/17 01/24/17 07:00 15:00 23:00 07:00 15:00 23:00 Intake Total 350 ml 200 ml Balance 350 ml 200 ml Intake Oral 250 ml 200 ml IV Total 100 ml 0 ml # Voids 2 2 # Bowel Movements 1 2 Result Diagram: 01/22/17 0554 01/22/17 0554 Imaging Last Impressions Pelvis X-Ray 01/21/171339 Signed Impressions: Service Date/Time: January 14:24 - CONCLUSION: No definite fracture identified on this rotated single view of the pelvis. Marked osteopenia. Severe osteoarthritis of the right hip similar to December 2013. Otto Mike MD Humerus X-Ray 01/21/171339 Signed Impressions: Service Date/Time: January 14:12 - CONCLUSION: Unremarkable examination of the left humerus. Pacemaker overlies left chest Otto Mike MD Head CT 01/21/171339 Signed Impressions: Service Date/Time: January 15:32 - CONCLUSION: Large area of encephalomalacia in the high right parietal region. No subarachnoid or subdural hematoma is identified. Otto Mike MD Femur X-Ray 01/21/171339 Signed Impressions: Service Date/Time: January 14:25 - CONCLUSION: Unremarkable examination of the right femur. Severe osteoarthritis with bony remodeling of the right femoral head and hip Otto Mike MD Chest X-Ray 01/21/17 0000 Signed Impressions: Service Date/Time: January 15:58 - CONCLUSION: Pacemaker good position. Lungs are clear. Otto Mike MD Objective Remarks GENERAL: Thin elderly female patient in NAD. SKIN: Warm and dry. No rash. HEENT: Normocephalic. Atraumatic. Mucous membranes pink and moist. NECK: Supple. Trachea midline. CARDIOVASCULAR: Regular rate and rhythm. S1, S2 noted. No murmur appreciated. RESPIRATORY: No accessory muscle use. Clear to auscultation. Breath sounds equal bilaterally. GASTROINTESTINAL: Abdomen soft, non-tender, nondistended. Normoactive bowel sounds x4. MUSCULOSKELETAL: No obvious deformities. Extremities without clubbing, cyanosis , or edema. NEUROLOGICAL: Awake and alert. No obvious cranial nerve deficits. Left sided weakness. Normal speech. Procedures None. Medications and IVs Current Medications Medications (Trade) Dose Ordered Sig/Cherelle Route Start Time Stop Time Status Last Admin (NS Flush) 2 ml UNSCH PRN IV FLUSH 01/21/17 20:30 (NS Flush) 2 ml BID IV FLUSH 01/21/17 21:00 01/23/17 08:48 (Zofran Inj) 4 mg Q6H PRN IVP 01/21/17 20:30 (Tylenol) 650 mg Q6H PRN PO 01/21/17 20:30 01/24/17 08:59 (Monika-Colace) 1 tab BID PO 01/21/17 21:00 01/23/17 21:20 (Milk Of Magnesia Liq) 30 ml Q12H PRN PO 01/21/17 20:30 (Senokot) 17.2 mg Q12H PRN PO 01/21/17 20:30 (Dulcolax Supp) 10 mg DAILY PRN RECTAL 01/21/17 20:30 (Lactulose Liq) 30 ml DAILY PRN PO 01/21/17 20:30 (Xanax) 0.125 mg Q8H PRN PO 01/21/17 20:30 01/22/17 16:14 (Norvasc) 5 mg DAILY PO 01/22/17 09:00 01/24/17 09:00 (Lipitor) 20 mg HS PO 01/21/17 21:00 01/23/17 21:19 (Coreg) 6.25 mg BID PO 01/21/17 21:00 01/24/17 09:00 (Pradaxa) 150 mg BID PO 01/21/17 21:00 01/24/17 09:00 (Keppra) 750 mg Q12HR PO 01/21/17 21:00 01/24/17 08:59 (SEROquel) 12.5 mg HS PO 01/21/17 21:00 01/23/17 21:20 (Demadex) 20 mg DAILY PO 01/22/17 09:00 01/24/17 08:59 (Pill Splitter) 1 ea UNSCH PRN OTHER 01/21/17 20:45 A/P Problem List: (1) UTI (urinary tract infection) ICD Code: N39.0 Status: Acute (2) Total self-care deficit ICD Code: R41.89 Status: Acute (3) HTN (hypertension) ICD Code: I10 Status: Acute (4) Seizure disorder ICD Code: G40.909 Status: Acute Assessment and Plan 86-year-old female with a PMH of A. fib on Pradaxa, HTN, Anxiety, CHF (Echo w/ EF 50%), h/o CVA, Chronic Hip Pain and AICD who was brought to the ER by EMS secondary to fall 2 days ago w/ complaints of left arm pain, right hip pain and right knee pain. Grandson (Thierry Chairez [phone]) provided some history upon arrival. Patient was to be discharged home from the ER, however multiple attempts to contact family for pickup were unsuccessful. Patient is wheelchair bound and unable to care for self, therefore we were asked to admit for observation and possible placement. UTI: U/a w/ mild UTI. Temp 99.0, no leukocytosis. Given IV Rocephin, however urine culture with no growth. Discontinued antibiotics. Resolved. Fall with Weakness: suspect multifactorial, patient with hx of CVA with left sided weakness at baseline, wheelchair bound, UTI as above. CXR unremarkable. Pelvis X-ray, Humerus, and Femur with no definite fracture. CT Head large area of encephalomalacia, no acute finding. Consult PT, recommends rehab however patient refuses, wants to go home, agrees to [facility]. Total Self Care Deficit: Pt wheelchair bound, was to be d/c'd home from ER however family contacted on multiple occasions without success. Case Management for assistance w/ placement, will attempt to contact family. Per records, Nadya Chairez [phone]. HTN: BP 150-160's, labile. Resume home medications, monitor BP. Seizure Disorder: Controlled. No recent seizure activity. Resume home Keppra. Anemia: CBC at baseline. No reported bleeding. Monitor. Dysphagia: patient reporting food getting stuck while eating breakfast. Consult ST, recommended pureed food with thin liquids. DVT Prophylaxis: SCD/Teds. Discharge Planning The patient is medically stable for discharge once safe discharge arrangements made. Likely can go home with family and C. Patient refuses SNF. Discharge patient to home with [facility] Condition on discharge: Improved Regular Diet as tolerated, pureed Ad Ivet activity Rx written: no new meds Follow-up with primary care physician Dr. Mccauley within 1 week Attending Statement The exam, history, and the medical decision-making described in the above note were completed with the assistance of the mid-level provider. I reviewed and agree with the findings presented. I attest that I had a [id number] encounter with the patient on the same day, and personally performed and documented my assessment and findings in the medical record. Problem Qualifiers (1) UTI (urinary tract infection): Qualified Code: N39.0 - Urinary tract infection without hematuria, site unspecified Tamie Benites PA-C Jan 24, 2017 09:47 Mychal Leonard MD Jan 24, 2017 17:55
[2017-01-24 11:07] VITALS: BP 120/65; PULSE 66; RESP 14; TEMP 98.7; O2SAT 96
[2017-01-24 19:52] VITALS: BP 115/59; PULSE 74; RESP 18; TEMP 97.8; O2SAT 96
[2017-01-24] MEDS: QUEtiapine FUMARATE 25 MG TAB PO SCH (21:17)
[2017-01-24] MEDS: ATORVASTATIN 20 MG TAB PO SCH (21:18)
[2017-01-24] MEDS: ALPRAZolam 0.25 MG TAB PO PRN (23:18)
[2017-01-25] VITALS (7 sets, daily range): BP systolic 108–132; BP diastolic 57–72; PULSE 60–74; RESP 12–18; TEMP 97.6–98.1; O2SAT 96–98
--- NOTE | 2017-01-25 08:34 | HHI.PR ---
Subjective Remarks Follow up for fall, pain, inability to care for self. The patient is sleeping again upon my arrival, easily awakens to touch. She denies any headache, lightheadedness, dizziness, chest pain, palpitations, shortness of breath, or abdominal complaints. Vital signs stable. Objective Vitals Vital Signs Date Time Temp Pulse Resp B/P Pulse Ox O2 Delivery O2 Flow Rate FiO2 01/25/17 05:01 98.1 60 12 113/57 96 01/25/17 00:00 98.0 74 18 121/68 98 01/24/17 19:52 97.8 74 18 115/59 96 01/24/17 11:07 98.7 66 14 120/65 96 I/O 01/24/17 01/24/17 01/24/17 01/25/17 01/25/17 01/25/17 07:00 15:00 23:00 07:00 15:00 23:00 Intake Total 200 ml 250 ml Balance 200 ml 250 ml Intake Oral 200 ml 250 ml IV Total 0 ml 0 ml # Voids 2 2 # Bowel Movements 2 0 Result Diagram: 01/22/17 0554 01/22/17 0554 Imaging Last Impressions Pelvis X-Ray 01/21/17 1340 Signed Impressions: Service Date/Time: January 14:24 - CONCLUSION: No definite fracture identified on this rotated single view of the pelvis. Marked osteopenia. Severe osteoarthritis of the right hip similar to December 2013. Otto Mike MD Humerus X-Ray 01/21/17 1340 Signed Impressions: Service Date/Time: January 14:12 - CONCLUSION: Unremarkable examination of the left humerus. Pacemaker overlies left chest Otto Mike MD Head CT 01/21/17 1340 Signed Impressions: Service Date/Time: January 15:32 - CONCLUSION: Large area of encephalomalacia in the high right parietal region. No subarachnoid or subdural hematoma is identified. Otto Mike MD Femur X-Ray 01/21/17 1340 Signed Impressions: Service Date/Time: January 14:25 - CONCLUSION: Unremarkable examination of the right femur. Severe osteoarthritis with bony remodeling of the right femoral head and hip Otto Mike MD Chest X-Ray 01/21/17 0000 Signed Impressions: Service Date/Time: January 15:58 - CONCLUSION: Pacemaker good position. Lungs are clear. Otto Mike MD Objective Remarks GENERAL: Thin elderly female patient in NAD. SKIN: Warm and dry. No rash. HEENT: Normocephalic. Atraumatic. Mucous membranes pink and moist. NECK: Supple. Trachea midline. CARDIOVASCULAR: Regular rate and rhythm. S1, S2 noted. No murmur appreciated. RESPIRATORY: No accessory muscle use. Clear to auscultation. Breath sounds equal bilaterally. GASTROINTESTINAL: Abdomen soft, non-tender, nondistended. Normoactive bowel sounds x4. MUSCULOSKELETAL: No obvious deformities. Extremities without clubbing, cyanosis , or edema. NEUROLOGICAL: Awake and alert. No obvious cranial nerve deficits. Left sided weakness. Normal speech. Procedures None. Medications and IVs Current Medications Medications (Trade) Dose Ordered Sig/Cherelle Route Start Time Stop Time Status Last Admin (NS Flush) 2 ml UNSCH PRN IV FLUSH 01/21/17 20:30 (NS Flush) 2 ml BID IV FLUSH 01/21/17 21:00 01/23/17 08:48 (Zofran Inj) 4 mg Q6H PRN IVP 01/21/17 20:30 (Tylenol) 650 mg Q6H PRN PO 01/21/17 20:30 01/24/17 08:59 (Monika-Colace) 1 tab BID PO 01/21/17 21:00 01/23/17 21:20 (Milk Of Magnesia Liq) 30 ml Q12H PRN PO 01/21/17 20:30 (Senokot) 17.2 mg Q12H PRN PO 01/21/17 20:30 (Dulcolax Supp) 10 mg DAILY PRN RECTAL 01/21/17 20:30 (Lactulose Liq) 30 ml DAILY PRN PO 01/21/17 20:30 (Xanax) 0.125 mg Q8H PRN PO 01/21/17 20:30 01/22/17 16:14 (Norvasc) 5 mg DAILY PO 01/22/17 09:00 01/24/17 09:00 (Lipitor) 20 mg HS PO 01/21/17 21:00 01/24/17 21:18 (Coreg) 6.25 mg BID PO 01/21/17 21:00 01/24/17 21:17 (Pradaxa) 150 mg BID PO 01/21/17 21:00 01/24/17 21:17 (Keppra) 750 mg Q12HR PO 01/21/17 21:00 01/24/17 21:18 (SEROquel) 12.5 mg HS PO 01/21/17 21:00 01/24/17 21:17 (Demadex) 20 mg DAILY PO 01/22/17 09:00 01/24/17 08:59 (Pill Splitter) 1 ea UNSCH PRN OTHER 01/21/17 20:45 A/P Problem List: (1) UTI (urinary tract infection) ICD Code: N39.0 Status: Acute (2) Total self-care deficit ICD Code: R41.89 Status: Acute (3) HTN (hypertension) ICD Code: I10 Status: Acute (4) Seizure disorder ICD Code: G40.909 Status: Acute Assessment and Plan 86-year-old female with a PMH of A. fib on Pradaxa, HTN, Anxiety, CHF (Echo w/ EF 50%), h/o CVA, Chronic Hip Pain and AICD who was brought to the ER by EMS secondary to fall 2 days ago w/ complaints of left arm pain, right hip pain and right knee pain. Grandson (Thierry Chairez [phone]) provided some history upon arrival. Patient was to be discharged home from the ER, however multiple attempts to contact family for pickup were unsuccessful. Patient is wheelchair bound and unable to care for self, therefore we were asked to admit for observation and possible placement. UTI: U/a w/ mild UTI. Temp 99.0, no leukocytosis. Given IV Rocephin, however urine culture with no growth. Discontinued antibiotics. Resolved. Fall with Weakness: suspect multifactorial, patient with hx of CVA with left sided weakness at baseline, wheelchair bound, UTI as above. CXR unremarkable. Pelvis X-ray, Humerus, and Femur with no definite fracture. CT Head large area of encephalomalacia, no acute finding. Consult PT, recommends rehab however patient refuses, wants to go home, agrees to [facility]. Total Self Care Deficit: Pt wheelchair bound, was to be d/c'd home from ER however family contacted on multiple occasions without success. Case Management for assistance with discharge planning, likely go home with [facility], patient refuses SNF. HTN: BP 150-160's, labile. Resume home medications, monitor BP. Seizure Disorder: Controlled. No recent seizure activity. Resume home Keppra. Anemia: CBC at baseline. No reported bleeding. Monitor. Dysphagia: patient reporting food getting stuck while eating breakfast. Consult ST, recommended pureed food with thin liquids. DVT Prophylaxis: SCD/Teds. Discharge Planning The patient is medically stable for discharge once safe discharge arrangements made. Likely can go home with family and [facility]. Patient refuses SNF. Discharge patient to home with [facility] Condition on discharge: Improved Regular Diet as tolerated, pureed Ad Ivet activity Rx written: no new meds Follow-up with primary care physician Dr. Mccauley within 1 week Attending Statement The exam, history, and the medical decision-making described in the above note were completed with the assistance of the mid-level provider. I reviewed and agree with the findings presented. I attest that I had a [id number] encounter with the patient on the same day, and personally performed and documented my assessment and findings in the medical record. Problem Qualifiers (1) UTI (urinary tract infection): Qualified Code: N39.0 - Urinary tract infection without hematuria, site unspecified Tamie Benites PA-C Jan 25, 2017 08:34 Mychal Leonard MD Jan 25, 2017 18:00
[2017-01-25] MEDS: DOCUSATE SODIUM 50 MG/SENNA 8.6 MG TAB PO SCH ×3 (08:57→20:40)
[2017-01-25] MEDS: DABIGATRAN ETEXILATE 150 MG CAP PO SCH ×3 (08:57→20:38)
[2017-01-25] MEDS: SODIUM CHLORIDE 0.9% FLUSH 10 ML FLUSH IV FLUSH SCH ×2 (08:58→20:41)
[2017-01-25] MEDS: CARVEDILOL 6.25 MG TAB PO SCH ×3 (08:58→20:38)
[2017-01-25] MEDS: amLODIPine BESYLATE 5 MG TAB PO SCH ×2 (08:59→10:09)
[2017-01-25] MEDS: levETIRAcetam 250 MG TAB PO SCH ×3 (08:59→20:39)
[2017-01-25] MEDS: TORSEMIDE 20 MG TAB PO SCH ×2 (08:59→10:09)
[2017-01-25] MEDS: QUEtiapine FUMARATE 25 MG TAB PO SCH (20:38)
[2017-01-25] MEDS: ATORVASTATIN 20 MG TAB PO SCH (20:40)
[2017-01-25] MEDS: ACETAMINOPHEN 325 MG TAB PO PRN (22:44)
[2017-01-26] VITALS: BP 118/64; PULSE 74; RESP 18; TEMP 97.8; O2SAT 97
[2017-01-26 07:35] VITALS: BP 119/59; PULSE 67; RESP 15; TEMP 97.8; O2SAT 95
--- NOTE | 2017-01-26 08:02 | HHI.PR ---
Subjective Remarks Follow up for fall, pain, inability to care for self. The patient is awake, alert, oriented to person/place/time this morning. She is asking to be cleaned up. She then asks when she's going home. She states she can take care of herself and she has help. I explained she only has help Wednesday-Wednesday and asked her what she does on the weekends, she states she just uses a bed sánchez throughout the weekend. She has no other medical complaints at this time. Objective Vitals Vital Signs Date Time Temp Pulse Resp B/P Pulse Ox O2 Delivery O2 Flow Rate FiO2 01/26/17 07:35 97.8 67 15 119/59 95 01/26/17 00:00 97.8 74 18 118/64 97 01/25/17 19:41 98.1 62 18 124/58 97 01/25/17 15:54 97.8 67 14 108/65 98 01/25/17 11:26 97.6 67 14 108/59 96 01/25/17 08:46 97.9 60 15 132/64 97 I/O 01/25/17 01/25/17 01/25/17 01/26/17 01/26/17 01/26/17 07:00 15:00 23:00 07:00 15:00 23:00 Intake Total 250 ml Output Total 3 ml Balance 250 ml -3 ml Intake Oral 250 ml IV Total 0 ml Output Urine Total 3 ml # Voids 2 # Bowel Movements 0 Result Diagram: 01/22/17 0554 01/22/17 0554 Other Results Laboratory Tests Test 01/22/17 05:54 White Blood Count 3.5 TH/MM3 Red Blood Count 2.89 MIL/MM3 Hemoglobin 8.9 GM/DL Hematocrit 27.2 % Mean Corpuscular Volume 94.0 FL Mean Corpuscular Hemoglobin 30.9 PG Mean Corpuscular Hemoglobin 32.9 % Concent Red Cell Distribution Width 13.1 % Platelet Count 264 TH/MM3 Mean Platelet Volume 7.8 FL Neutrophils (%) (Auto) 44.4 % Lymphocytes (%) (Auto) 37.5 % Monocytes (%) (Auto) 13.2 % Eosinophils (%) (Auto) 3.6 % Basophils (%) (Auto) 1.3 % Neutrophils # (Auto) 1.6 TH/MM3 Lymphocytes # (Auto) 1.3 TH/MM3 Monocytes # (Auto) 0.5 TH/MM3 Eosinophils # (Auto) 0.1 TH/MM3 Basophils # (Auto) 0.0 TH/MM3 CBC Comment DIFF FINAL Differential Comment Sodium Level 142 MEQ/L Potassium Level 4.1 MEQ/L Chloride Level 109 MEQ/L Carbon Dioxide Level 25.5 MEQ/L Anion Gap 8 MEQ/L Blood Urea Nitrogen 11 MG/DL Creatinine 0.60 MG/DL Estimat Glomerular Filtration 115 ML/MIN Rate Random Glucose 64 MG/DL Calcium Level 8.7 MG/DL Imaging Last Impressions Pelvis X-Ray 01/21/17 1340 Signed Impressions: Service Date/Time: January 14:24 - CONCLUSION: No definite fracture identified on this rotated single view of the pelvis. Marked osteopenia. Severe osteoarthritis of the right hip similar to December 2013. Otto Mike MD Humerus X-Ray 01/21/17 1340 Signed Impressions: Service Date/Time: January 14:12 - CONCLUSION: Unremarkable examination of the left humerus. Pacemaker overlies left chest Otto Mike MD Head CT 01/21/17 1340 Signed Impressions: Service Date/Time: January 15:32 - CONCLUSION: Large area of encephalomalacia in the high right parietal region. No subarachnoid or subdural hematoma is identified. Otto Mike MD Femur X-Ray 01/21/17 1340 Signed Impressions: Service Date/Time: January 14:25 - CONCLUSION: Unremarkable examination of the right femur. Severe osteoarthritis with bony remodeling of the right femoral head and hip Otto Mike MD Chest X-Ray 01/21/17 0000 Signed Impressions: Service Date/Time: January 15:58 - CONCLUSION: Pacemaker good position. Lungs are clear. Otto Mike MD Objective Remarks GENERAL: Thin elderly female patient in NAD. SKIN: Warm and dry. No rash. HEENT: Normocephalic. Atraumatic. Mucous membranes pink and moist. CARDIOVASCULAR: Regular rate and rhythm. S1, S2 noted. No murmur appreciated. RESPIRATORY: No accessory muscle use. Clear to auscultation. Breath sounds equal bilaterally. GASTROINTESTINAL: Abdomen soft, non-tender, nondistended. Normoactive bowel sounds x4. MUSCULOSKELETAL: No obvious deformities. Extremities without clubbing, cyanosis , or edema. NEUROLOGICAL: Awake and alert. No obvious cranial nerve deficits. Left sided weakness. Normal speech. Procedures None. Medications and IVs Current Medications Medications (Trade) Dose Ordered Sig/Cherelle Route Start Time Stop Time Status Last Admin (NS Flush) 2 ml UNSCH PRN IV FLUSH 01/21/17 20:30 (NS Flush) 2 ml BID IV FLUSH 01/21/17 21:00 01/25/17 08:58 (Zofran Inj) 4 mg Q6H PRN IVP 01/21/17 20:30 (Tylenol) 650 mg Q6H PRN PO 01/21/17 20:30 01/25/17 22:44 (Monika-Colace) 1 tab BID PO 01/21/17 21:00 01/25/17 20:40 (Milk Of Magnesia Liq) 30 ml Q12H PRN PO 01/21/17 20:30 (Senokot) 17.2 mg Q12H PRN PO 01/21/17 20:30 (Dulcolax Supp) 10 mg DAILY PRN RECTAL 01/21/17 20:30 (Lactulose Liq) 30 ml DAILY PRN PO 01/21/17 20:30 (Xanax) 0.125 mg Q8H PRN PO 01/21/17 20:30 01/22/17 16:14 (Norvasc) 5 mg DAILY PO 01/22/17 09:00 01/25/17 10:09 (Lipitor) 20 mg HS PO 01/21/17 21:00 01/25/17 20:40 (Coreg) 6.25 mg BID PO 01/21/17 21:00 01/25/17 20:38 (Pradaxa) 150 mg BID PO 01/21/17 21:00 01/25/17 20:38 (Keppra) 750 mg Q12HR PO 01/21/17 21:00 01/25/17 20:39 (SEROquel) 12.5 mg HS PO 01/21/17 21:00 01/25/17 20:38 (Demadex) 20 mg DAILY PO 01/22/17 09:00 01/25/17 10:09 (Pill Splitter) 1 ea UNSCH PRN OTHER 01/21/17 20:45 Urinary Catheter: No Vascular Central Line Catheter: No A/P Problem List: (1) UTI (urinary tract infection) ICD Code: N39.0 Status: Acute (2) Total self-care deficit ICD Code: R41.89 Status: Acute (3) HTN (hypertension) ICD Code: I10 Status: Acute (4) Seizure disorder ICD Code: G40.909 Status: Acute Assessment and Plan 86-year-old female with a PMH of A. fib on Pradaxa, HTN, Anxiety, CHF (Echo w/ EF 50%), h/o CVA, Chronic Hip Pain and AICD who was brought to the ER by EMS secondary to fall 2 days ago w/ complaints of left arm pain, right hip pain and right knee pain. Grandson (Thierry Chairez [phone]) provided some history upon arrival. Patient was to be discharged home from the ER, however multiple attempts to contact family for pickup were unsuccessful. Patient is wheelchair bound and unable to care for self, therefore we were asked to admit for observation and possible placement. UTI: U/a w/ mild UTI. Temp 99.0, no leukocytosis. Given IV Rocephin, however urine culture with no growth. Discontinued antibiotics. Resolved. Fall with Weakness: suspect multifactorial, patient with hx of CVA with left sided weakness at baseline, wheelchair bound, UTI as above. CXR unremarkable. Pelvis X-ray, Humerus, and Femur with no definite fracture. CT Head large area of encephalomalacia, no acute finding. Consult PT, recommends rehab however patient refuses, wants to go home, agrees to [facility]. Total Self Care Deficit: Pt wheelchair bound, was to be d/c'd home from ER however family contacted on multiple occasions without success. Case Management for assistance with discharge planning, likely go home with [facility], patient refuses SNF. HTN: BP 150-160's, labile. Resume home medications, monitor BP. Seizure Disorder: Controlled. No recent seizure activity. Resume home Keppra. Anemia: CBC at baseline. No reported bleeding. Monitor. Dysphagia: patient reporting food getting stuck while eating breakfast. Consult ST, recommended pureed food with thin liquids. DVT Prophylaxis: SCD/Teds. Discharge Planning The patient is medically stable for discharge once safe discharge arrangements made. Likely can go home with family and C. Patient refuses SNF. Family still unable to be contacted, DCF contacted 01/25. Discharge patient to home with [facility] Condition on discharge: Improved Regular Diet as tolerated, pureed Ad Ivet activity Rx written: no new meds Follow-up with primary care physician Dr. Mccauley within 1 week Attending Statement The exam, history, and the medical decision-making described in the above note were completed with the assistance of the mid-level provider. I reviewed and agree with the findings presented. I attest that I had a [id number] encounter with the patient on the same day, and personally performed and documented my assessment and findings in the medical record. Relatives Called by me today, initially placed a call to Alexia Kahn to the Phone number [phone] and to the phone number [phone] and left a message on both phones and called her Grandson Mr. Contreras Guadarrama but no answer on the phone number [phone]. DCF was called. Problem Qualifiers (1) UTI (urinary tract infection): Qualified Code: N39.0 - Urinary tract infection without hematuria, site unspecified Tamie Benites PA-C Jan 26, 2017 08:02 Mychal Leonard MD Jan 26, 2017 17:10
[2017-01-26] MEDS: SODIUM CHLORIDE 0.9% FLUSH 10 ML FLUSH IV FLUSH SCH ×2 (09:00→23:44)
[2017-01-26] MEDS: DOCUSATE SODIUM 50 MG/SENNA 8.6 MG TAB PO SCH ×2 (09:56→23:46)
[2017-01-26] MEDS: TORSEMIDE 20 MG TAB PO SCH (09:56)
[2017-01-26] MEDS: DABIGATRAN ETEXILATE 150 MG CAP PO SCH ×2 (09:56→23:45)
[2017-01-26] MEDS: levETIRAcetam 250 MG TAB PO SCH ×2 (09:57→23:47)
[2017-01-26] MEDS: amLODIPine BESYLATE 5 MG TAB PO SCH (09:57)
[2017-01-26] MEDS: CARVEDILOL 6.25 MG TAB PO SCH ×2 (09:58→23:46)
[2017-01-26 10:59] VITALS: BP 129/64; PULSE 63; RESP 15; TEMP 97.8; O2SAT 96
[2017-01-26 15:51] VITALS: BP 122/68; PULSE 68; RESP 15; TEMP 98.8; O2SAT 97
[2017-01-26 20:33] VITALS: BP 105/57; PULSE 68; RESP 17; TEMP 98.9; O2SAT 99
[2017-01-26] MEDS: QUEtiapine FUMARATE 25 MG TAB PO SCH (23:44)
[2017-01-26] MEDS: ATORVASTATIN 20 MG TAB PO SCH (23:48)
[2017-01-27 00:11] VITALS: BP 115/59; PULSE 63; RESP 17; TEMP 98.2; O2SAT 96
[2017-01-27 03:29] VITALS: BP 104/61; PULSE 65; RESP 16; TEMP 99.4; O2SAT 97
[2017-01-27 08:06] VITALS: BP 102/57; PULSE 69; RESP 16; TEMP 97.7; O2SAT 97
[2017-01-27] MEDS: CARVEDILOL 6.25 MG TAB PO SCH (08:43)
[2017-01-27] MEDS: levETIRAcetam 250 MG TAB PO SCH (08:43)
[2017-01-27] MEDS: amLODIPine BESYLATE 5 MG TAB PO SCH (08:44)
[2017-01-27] MEDS: DOCUSATE SODIUM 50 MG/SENNA 8.6 MG TAB PO SCH (08:44)
[2017-01-27] MEDS: TORSEMIDE 20 MG TAB PO SCH (08:44)
[2017-01-27] MEDS: SODIUM CHLORIDE 0.9% FLUSH 10 ML FLUSH IV FLUSH SCH (08:44)
[2017-01-27] MEDS: DABIGATRAN ETEXILATE 150 MG CAP PO SCH (08:45)
--- NOTE | 2017-01-27 08:46 | HHI.PR ---
Subjective Remarks Follow up for fall, pain, inability to care for self. The patient is sleeping upon my arrival this morning, easily awakens to touch. Denies any medical complaints. Again asks when she can go home. Vital signs reviewed and stable. Objective Vitals Vital Signs Date Time Temp Pulse Resp B/P Pulse Ox O2 Delivery O2 Flow Rate FiO2 01/27/17 08:06 97.7 69 16 102/57 97 01/27/17 03:29 99.4 65 16 104/61 97 01/27/17 00:11 98.2 63 17 115/59 96 01/26/17 20:33 98.9 68 17 105/57 99 01/26/17 15:51 98.8 68 15 122/68 97 01/26/17 10:59 97.8 63 15 129/64 96 I/O 01/26/17 01/26/17 01/26/17 01/27/17 01/27/17 01/27/17 07:00 15:00 23:00 07:00 15:00 23:00 Intake Total 600 ml 120 ml Balance 600 ml 120 ml Intake Oral 600 ml Oral Supplement 120 ml # Voids 4 # Bowel Movements 1 1 Imaging Last Impressions Pelvis X-Ray 01/21/17 1340 Signed Impressions: Service Date/Time: January 14:24 - CONCLUSION: No definite fracture identified on this rotated single view of the pelvis. Marked osteopenia. Severe osteoarthritis of the right hip similar to December 2013. Otto Mike MD Humerus X-Ray 01/21/17 134 Signed Impressions: Service Date/Time: January 14:12 - CONCLUSION: Unremarkable examination of the left humerus. Pacemaker overlies left chest Otto Mike MD Head CT 01/21/17 1340 Signed Impressions: Service Date/Time: January 15:32 - CONCLUSION: Large area of encephalomalacia in the high right parietal region. No subarachnoid or subdural hematoma is identified. Otto Mike MD Femur X-Ray 01/21/17 1340 Signed Impressions: Service Date/Time: January 14:25 - CONCLUSION: Unremarkable examination of the right femur. Severe osteoarthritis with bony remodeling of the right femoral head and hip Otto Mike MD Chest X-Ray 01/21/17 0000 Signed Impressions: Service Date/Time: January 15:58 - CONCLUSION: Pacemaker good position. Lungs are clear. Otto Mike MD Objective Remarks GENERAL: Thin elderly female patient in NAD. SKIN: Warm and dry. No rash. HEENT: Normocephalic. Atraumatic. Mucous membranes pink and moist. CARDIOVASCULAR: Regular rate and rhythm. S1, S2 noted. No murmur appreciated. RESPIRATORY: No accessory muscle use. Clear to auscultation. Breath sounds equal bilaterally. GASTROINTESTINAL: Abdomen soft, non-tender, nondistended. Normoactive bowel sounds x4. MUSCULOSKELETAL: No obvious deformities. Extremities without clubbing, cyanosis , or edema. NEUROLOGICAL: Awake and alert. No obvious cranial nerve deficits. Left sided weakness. Normal speech. Procedures None. Medications and IVs Current Medications Medications (Trade) Dose Ordered Sig/Cherelle Route Start Time Stop Time Status Last Admin (NS Flush) 2 ml UNSCH PRN IV FLUSH 01/21/17 20:30 (NS Flush) 2 ml BID IV FLUSH 01/21/17 21:00 01/26/17 23:44 (Zofran Inj) 4 mg Q6H PRN IVP 01/21/17 20:30 (Tylenol) 650 mg Q6H PRN PO 01/21/17 20:30 01/25/17 22:44 (Monika-Colace) 1 tab BID PO 01/21/17 21:00 01/26/17 23:46 (Milk Of Magnesia Liq) 30 ml Q12H PRN PO 01/21/17 20:30 (Senokot) 17.2 mg Q12H PRN PO 01/21/17 20:30 (Dulcolax Supp) 10 mg DAILY PRN RECTAL 01/21/17 20:30 (Lactulose Liq) 30 ml DAILY PRN PO 01/21/17 20:30 (Xanax) 0.125 mg Q8H PRN PO 01/21/17 20:30 01/22/17 16:14 (Norvasc) 5 mg DAILY PO 01/22/17 09:00 01/26/17 09:57 (Lipitor) 20 mg HS PO 01/21/17 21:00 01/26/17 23:48 (Coreg) 6.25 mg BID PO 01/21/17 21:00 01/26/17 23:46 (Pradaxa) 150 mg BID PO 01/21/17 21:00 01/26/17 23:45 (Keppra) 750 mg Q12HR PO 01/21/17 21:00 01/26/17 23:47 (SEROquel) 12.5 mg HS PO 01/21/17 21:00 01/26/17 23:44 (Demadex) 20 mg DAILY PO 01/22/17 09:00 01/26/17 09:56 (Pill Splitter) 1 ea UNSCH PRN OTHER 01/21/17 20:45 A/P Problem List: (1) UTI (urinary tract infection) ICD Code: N39.0 Status: Acute (2) Total self-care deficit ICD Code: R41.89 Status: Acute (3) HTN (hypertension) ICD Code: I10 Status: Acute (4) Seizure disorder ICD Code: G40.909 Status: Acute Assessment and Plan 86-year-old female with a PMH of A. fib on Pradaxa, HTN, Anxiety, CHF (Echo w/ EF 50%), h/o CVA, Chronic Hip Pain and AICD who was brought to the ER by EMS secondary to fall 2 days ago w/ complaints of left arm pain, right hip pain and right knee pain. Grandson (Thierry Chairez [phone]) provided some history upon arrival. Patient was to be discharged home from the ER, however multiple attempts to contact family for pickup were unsuccessful. Patient is wheelchair bound and unable to care for self, therefore we were asked to admit for observation and possible placement. UTI: U/a w/ mild UTI. Temp 99.0, no leukocytosis. Given IV Rocephin, however urine culture with no growth. Discontinued antibiotics. Resolved. Fall with Weakness: suspect multifactorial, patient with hx of CVA with left sided weakness at baseline, wheelchair bound, UTI as above. CXR unremarkable. Pelvis X-ray, Humerus, and Femur with no definite fracture. CT Head large area of encephalomalacia, no acute finding. Consult PT, recommends rehab however patient refuses, wants to go home, agrees to [facility]. Total Self Care Deficit: Pt wheelchair bound, was to be d/c'd home from ER however family contacted on multiple occasions without success. Case Management for assistance with discharge planning, likely go home with [facility], patient refuses SNF. HTN: BP 150-160's, labile. Resume home medications, monitor BP. Seizure Disorder: Controlled. No recent seizure activity. Resume home Keppra. Anemia: CBC at baseline. No reported bleeding. Monitor. Dysphagia: patient reporting food getting stuck while eating breakfast. Consult ST, recommended pureed food with thin liquids. DVT Prophylaxis: SCD/Teds. Discharge Planning The patient is medically stable for discharge once safe discharge arrangements made. Likely can go home with family and [facility]. Patient refuses SNF. Family still unable to be contacted after discharge order placed 01/22, DCF contacted by case management on 01/25 to report abandonment by the family. 1215hrs: Per Case Management, DCF has deemed the patient competent to make her own medical decisions therefore she has the right to return home per her wishes. Case management contacted [facility] agency, patient now has 7days a week [facility] services. The patient is having a friend pick her up to take her home. Patient still adamantly refuses rehab. Discharge patient to home with [facility] Condition on discharge: Improved Regular Diet as tolerated, pureed Ad Ivet activity Rx written: no new meds Follow-up with primary care physician Dr. Mccauley within 1 week Problem Qualifiers (1) UTI (urinary tract infection): Qualified Code: N39.0 - Urinary tract infection without hematuria, site unspecified Tamie Benites PA-C Jan 27, 2017 08:46
[2017-01-27] MEDS: ACETAMINOPHEN 325 MG TAB PO PRN (10:18)
[2017-01-27 11:53] VITALS: BP 97/56; PULSE 63; RESP 18; TEMP 97.5; O2SAT 97
--- NOTE | 2017-01-27 12:24 | HHI.FF ---
Face to Face Verification Diagnosis: (1) Total self-care deficit (2) Generalized weakness (3) History of CVA (cerebrovascular accident) (4) HTN (hypertension) (5) Seizure disorder Physical Therapy Order: Evaluate and Treat, Improve ambulation, Strength and gait training Occupational Therapy Order: Evaluate and Treat, Improve ADL, Gross motor coordination, Fine motor coordination Home Health Nursing Order: Medical education Signs/symptoms of disease process Nursing assessment with vital signs Home Health Aide Order: To Assist In: Bathing and personal care, senior scrum master and meal prep Coach Driver Order: To Evaluate: Living conditions/environment, Support services Order: To Provide: Long range planning, Community services I have seen patient Aida Baxter on 01/27/17. My clinical findings support the need for the requested home health care services because: Ltd mobility - disease progression Deconditioned w/ increased weakness Limited ability to care for self Need for psychosocial assistance High risk of falls I certify that my clinical findings support that this patient is homebound because: Impaired cognitive ability/safety Unsteady gait/balance Unsafe to leave home unassisted Need for psychosocial assistance [id number] bed/chair Unable to use public transportation Tamie Benites PA-C Jan 27, 2017 12:24 pm Enedina Mathias DO Jan 27, 2017 12:25 pm
--- NOTE | 2017-01-27 16:11 | HHI.DS ---
Discharge Summary Admission Date Jan 21, 2017 at 8:19 pm Discharge Date: Jan 27, 2017 Admitting Diagnosis AMS, UTI (1) UTI (urinary tract infection) ICD Code: N39.0 Diagnosis: Principal (2) Total self-care deficit ICD Code: R41.89 Diagnosis: Secondary (3) HTN (hypertension) ICD Code: I10 Diagnosis: Secondary (4) Seizure disorder ICD Code: G40.909 Diagnosis: Secondary Procedures None. Brief History - From Admission This is an 86-year-old female with a PMH of A. fib on Pradaxa, HTN, Anxiety, CHF (Echo 05/26/16 w/ EF 50%), h/o CVA, Chronic Hip Pain and AICD who was brought to the ER by EMS secondary to fall 2 days ago w/ complaints of left arm pain, right hip pain and right knee pain. Grandson (Thierry Chairez [phone] ) provided some history upon arrival. BP 132/72, HR 61, O2 sat 93% on RA, Temp 99.0. CBC at baseline. Chemistry unremarkable. UA with UTI. CXR with no acute findings. Pelvis X-ray with no definite fracture. Humerus X-ray negative. CT Head large area of encephalomalacia, no acute finding. Femur X- ray unremarkable exam of the right femur. Patient was to be discharged home from the ER, however multiple attempts to contact family for pickup were unsuccessful. Patient is wheelchair bound and unable to care for self, therefore we were asked to admit for observation and possible placement. Imaging Last Impressions Pelvis X-Ray 01/21/17 1340 Signed Impressions: Service Date/Time: January 14:24 - CONCLUSION: No definite fracture identified on this rotated single view of the pelvis. Marked osteopenia. Severe osteoarthritis of the right hip similar to December 2013. Otto Mike MD Humerus X-Ray 01/21/17 1340 Signed Impressions: Service Date/Time: , January 21, 2017 14:12 - CONCLUSION: Unremarkable examination of the left humerus. Pacemaker overlies left chest Otto Mike MD Head CT 01/21/17 1340 Signed Impressions: Service Date/Time: January 15:32 - CONCLUSION: Large area of encephalomalacia in the high right parietal region. No subarachnoid or subdural hematoma is identified. tOto Mike MD Femur X-Ray 01/21/17 1340 Signed Impressions: Service Date/Time: January 14:25 - CONCLUSION: Unremarkable examination of the right femur. Severe osteoarthritis with bony remodeling of the right femoral head and hip Otto Mike MD Chest X-Ray 01/21/17 0000 Signed Impressions: Service Date/Time: , January 21, 2017 15:58 - CONCLUSION: Pacemaker good position. Lungs are clear. Otto Mike MD PE at Discharge GENERAL: Thin elderly female patient in NAD. SKIN: Warm and dry. No rash. HEENT: Normocephalic. Atraumatic. Mucous membranes pink and moist. CARDIOVASCULAR: Regular rate and rhythm. S1, S2 noted. No murmur appreciated. RESPIRATORY: No accessory muscle use. Clear to auscultation. Breath sounds equal bilaterally. GASTROINTESTINAL: Abdomen soft, non-tender, nondistended. Normoactive bowel sounds x4. MUSCULOSKELETAL: No obvious deformities. Extremities without clubbing, cyanosis , or edema. NEUROLOGICAL: Awake and alert. No obvious cranial nerve deficits. Left sided weakness. Normal speech. Hospital Course 86-year-old female with a PMH of A. fib on Pradaxa, HTN, Anxiety, CHF (Echo w/ EF 50%), h/o CVA, Chronic Hip Pain and AICD who was brought to the ER by EMS secondary to fall 2 days ago w/ complaints of left arm pain, right hip pain and right knee pain. Grandson (Thierry Chairez [phone]) provided some history upon arrival. CXR unremarkable. Pelvis X-ray, Humerus, and Femur with no definite fracture. CT Head large area of encephalomalacia, no acute finding. Patient was to be discharged home from the ER, however multiple attempts to contact family for pickup were unsuccessful. Patient is wheelchair bound and unable to care for self, therefore we were asked to admit for observation and possible placement. She was treated for UTI with IV rocephin however urine culture with no growth. PT evaluated, recommended rehab however patient refuses , adamantly wants to go home. The patient was admitted to obs 01/21, medically cleared for discharge 01/22. Family avoided all phone calls by myself, nurses, and case management. On 01/25, DCF was contacted to report abandonment. On 01/27, DCF worker evaluated the patient, deemed her competent to make her own medical decisions, patient adamantly wanted to go home, therefore she has the right to go home per her wishes. Case management arranged transport home. Case management also contacted patient's [facility] agency, patient will now have care 7days a week from 9am to 3pm. Pt Condition on Discharge: Stable Discharge Disposition: Disch w/ Home Health Serv Discharge Time: > 30 minutes Discharge Instructions DIET: Follow Instructions for: As Tolerated, No Restrictions Speech Therapy-Diet Recommends: Pureed Activities you can perform: Regular-No Restrictions Follow up Referrals: PCP Follow-up - 1 Week with Alvarado Mccauley MD Continued Medications: Alprazolam (Xanax) 0.25 Mg Tab 0.125 MG PO Q8HR PRN ANXIETY #90 TAB Amlodipine (Norvasc) 5 Mg Tab 5 MG PO DAILY #30 TAB Atorvastatin (Atorvastatin) 20 Mg Tab 20 MG PO HS Cholesterol Management #30 Ref 0 TAB Carvedilol (Carvedilol) 6.25 Mg Tab 6.25 MG PO BID #60 Ref 0 TAB Dabigatran (Pradaxa) 150 Mg Cap 150 MG PO BID Blood Clot Prevention #60 Ref 0 CAP Levetiracetam (Keppra) 250 Mg Tab 750 MG PO Q12HR Seizure Control #60 TAB Quetiapine (Seroquel) 25 Mg Tab 12.5 MG PO HS Agitation #30 Ref 0 TAB Torsemide (Torsemide) 20 Mg Tab 20 MG PO DAILY #30 Ref 0 TAB Tamie Benites PA-C Jan 27, 2017 16:11 Enedina Mathias DO Jan 30, 2017 22:21
== END 2017-01-27 15:31 | disposition home or self-care (01) ==
LOC: NEPE 12:32 → NEDA 20:19 → NEPFCDU 22:34
PROVIDERS: ADMIT Hospitalist; ATTEND Hospitalist
DX: N39.0 Urinary tract infection, site not specified (principal); G40.909 Epilepsy, unspecified, not intractable, without status epilepticus; J45.909 Unspecified asthma, uncomplicated; F03.90 Unspecified dementia, unspecified severity, without behavioral disturbance, psychotic disturbance, mood disturbance, and anxiety; I11.0 Hypertensive heart disease with heart failure; I50.9 Heart failure, unspecified; R53.1 Weakness; F41.9 Anxiety disorder, unspecified; M16.11 Unilateral primary osteoarthritis, right hip; D64.9 Anemia, unspecified; R13.10 Dysphagia, unspecified; R41.89 Other symptoms and signs involving cognitive functions and awareness; G89.29 Other chronic pain; K21.9 Gastro-esophageal reflux disease without esophagitis; Z86.73 Personal history of transient ischemic attack (TIA), and cerebral infarction without residual deficits; Z99.3 Dependence on wheelchair; Z79.01 Long term (current) use of anticoagulants; Z95.0 Presence of cardiac pacemaker; Z79.899 Other long term (current) drug therapy; Z95.810 Presence of automatic (implantable) cardiac defibrillator
CPT/HCPCS: 70450; 71010; 72170; 73060; 73552; 80048; 81001; 85025; 85610; 85730; 87086; 92526; 92610; 96365; 97163; 97530; 99285; G0378; G8987; G8988; G8996; G8997; G8998; J0696; P9612

== ENCOUNTER 2017-12-18 07:44 | Inpatient (IN) ==
[2018-01-02] MEDS ORDERED: Dextrose 50% in Water 50 ML Vial IV.PUSH PRN (00:01)
[2018-01-02] MEDS ORDERED: Docusate Sodium 100 MG Capsule PO PRN (00:01)
[2018-01-02] MEDS ORDERED: Benzonatate 100 MG Capsule PO PRN (00:01)
[2018-01-02] MEDS ORDERED: guaiFENesin/Dextromethorphan 200 MG/20 MG 10 ML UDC PO PRN (00:01)
[2018-01-02] MEDS: Sod Chloride 0.9% Inj 1,000 ML IV.SIG SCH ×3 (05:52→17:18)
[2018-01-02 08:24] LABS: Baso % (Auto) 0.6 % (0.0-2.0); Eos # (Auto) 0.1 th/mm3 (0.0-0.4); Eos % (Auto) 2.2 % (0.0-4.0); Hematocrit 29.2 % (35.0-46.0); Hemoglobin 9.5 gm/dL (11.6-15.3); Lymph # (Auto) 1.4 th/mm3 (1.0-4.8); Lymph % (Auto) 41.5 % (9.0-44.0); Mean Corpuscular HGB Conc 32.4 % (32.0-36.0); Mean Corpuscular Volume 92.6 fL (80.0-100.0); Mean Platelet Volume 8.4 fL (7.0-11.0); Mono # (Auto) 0.7 th/mm3 (0.0-0.9); Mono % (Auto) 22.2 % (0.0-8.0); Neut # (Auto) 1.1 th/mm3 (1.8-7.7); Neut % (Auto) 33.5 % (16.0-70.0); Platelet Count 198 th/mm3 (150-450); Red Blood Count 3.15 mil/mm3 (4.00-5.30); White Blood Count 3.3 th/mm3 (4.0-11.0)
[2018-01-02 08:52] LABS: Anion Gap 7 meq/L (5-15); Blood Urea Nitrogen 7 mg/dL (7-18); Calcium 8.4 mg/dL (8.5-10.1); Carbon Dioxide 34.9 meq/L (21.0-32.0); Chloride 101 meq/L (98-107); Glomerular Filtration Rate Greater Than 89 mL/min (>89); Glucose,Random 105 mg/dL (74-106); Phosphorus 2.5 mg/dL (2.5-4.9); Potassium 4.4 meq/L (3.5-5.1); Sodium 143 meq/L (136-145)
[2018-01-02] MEDS: Fosphenytoin Sodium Inj 100 MGPE/2 ML Vial IV.SIG SCH ×2 (09:26→20:36)
[2018-01-02] MEDS: Divalproex 125 MG Sprinkles Capsule G-TUBE SCH ×2 (09:28→20:37)
[2018-01-02] MEDS: Potassium Chloride 10 MEQ ER Capsule PO SCH (09:28)
[2018-01-02] MEDS: Carvedilol 6.25 MG Tablet G-TUBE SCH ×2 (09:28→20:38)
[2018-01-02] MEDS: Modafinil 200 MG Tablet G-TUBE SCH (09:28)
[2018-01-02] MEDS: Phenytoin Sodium 100 MG Capsule G-TUBE SCH ×3 (09:28→20:39)
[2018-01-02] MEDS: Multivitamin/Minerals Therapeutic Tablet PO SCH (09:28)
[2018-01-02] MEDS: Furosemide 20 MG Tablet G-TUBE SCH (09:28)
[2018-01-02] MEDS: Polyethylene Glycol 3350 17 GM Packet G-TUBE SCH (09:29)
[2018-01-02] MEDS: Insulin NovoLOG Aspart Correctional Sugar Inj SQ SCH ×4 (09:42→21:00)
[2018-01-02] MEDS: Pantoprazole Inj 40 MG Vial IV.PUSH SCH (10:04)
--- NOTE | 2018-01-02 10:05 | P.PNFP ---
Addendum entered and electronically signed by Kaia Davis MD, R1 01/02/18 13: 51: Spoke with daughter, Kaci Koenig, who gave me a list of possible facilities. 1. [facility] [place], [place] 2. [facility] [place], [place] 3. [facility] [place], [place] 4. [facility] in [place], [place] She is aware of the cost of transport and she does not wish for her mother to go to [facility]. Original Note: <Kaia Davis - Last Filed: 01/02/18 13:33> Subjective Interval history: Patient seen and examined this morning. No acute events overnight. Patient is disoriented and unable to answer our questions. She repeatedly asked if it was cold outside and if the door was open. Results - Labs Result diagrams: 01/02/18 06:55 01/02/18 06:55 Abnormal lab results 12/30/17 12/30/17 12/31/17 Range/Units 07:27 07:27 09:01 WBC (4.0-11.0) th/mm3 RBC 3.07 L (4.00-5.30) MIL/MM3 Hgb 9.3 L (11.6-15.3) GM/DL Hct 29.0 L (35.0-46.0) % MCHC (32.0-36.0) % Hubbard % (Auto) (0.0-8.0) % Neut # (Auto) (1.8-7.7) th/mm3 Carbon Dioxide 35.7 H (21.0-32.0) MEQ/L BUN 5 L (7-18) MG/DL Creatinine 0.37 L 0.35 L (0.50-1.00) MG/DL Random Glucose 119 H (74-106) MG/DL Calcium 8.4 L 8.3 L (8.5-10.1) MG/DL Phosphorus 2.4 L (2.5-4.9) MG/DL Phenytoin 5.7 L (10.0-20.0) MCG/ML 12/31/17 01/01/18 01/01/18 Range/Units 09:01 07:28 07:28 WBC (4.0-11.0) th/mm3 RBC 3.37 L 3.29 L (4.00-5.30) MIL/MM3 Hgb 10.1 L 10.0 L (11.6-15.3) GM/DL Hct 31.6 L 30.6 L (35.0-46.0) % MCHC 31.9 L (32.0-36.0) % Hubbard % (Auto) (0.0-8.0) % Neut # (Auto) (1.8-7.7) th/mm3 Carbon Dioxide 34.4 H (21.0-32.0) MEQ/L BUN 6 L (7-18) MG/DL Creatinine 0.48 L (0.50-1.00) MG/DL Random Glucose 131 H (74-106) MG/DL Calcium (8.5-10.1) MG/DL Phosphorus (2.5-4.9) MG/DL Phenytoin (10.0-20.0) MCG/ML 18 01/02/18 Range/Units 06:55 06:55 WBC 3.3 L (4.0-11.0) th/mm3 RBC 3.15 L (4.00-5.30) MIL/MM3 Hgb 9.5 L (11.6-15.3) GM/DL Hct 29.2 L (35.0-46.0) % MCHC (32.0-36.0) % Hubbard % (Auto) 22.2 H (0.0-8.0) % Neut # (Auto) 1.1 L (1.8-7.7) th/mm3 Carbon Dioxide 34.9 H (21.0-32.0) MEQ/L BUN (7-18) MG/DL Creatinine 0.35 L (0.50-1.00) MG/DL Random Glucose (74-106) MG/DL Calcium 8.4 L (8.5-10.1) MG/DL Phosphorus (2.5-4.9) MG/DL Phenytoin (10.0-20.0) MCG/ML Short CBC 12/30/17 12/31/17 01/01/18 Range/Units 07:27 09:01 07:28 WBC 5.0 4.6 4.0 (4.0-11.0) TH/MM3 Hgb 9.3 L 10.1 L 10.0 L (11.6-15.3) GM/DL Hct 29.0 L 31.6 L 30.6 L (35.0-46.0) % Plt Count 181 205 196 (150-450) TH/MM3 01/02/18 Range/Units 06:55 WBC 3.3 L (4.0-11.0) TH/MM3 Hgb 9.5 L (11.6-15.3) GM/DL Hct 29.2 L (35.0-46.0) % Plt Count 198 (150-450) TH/MM3 [facility] 12/30/17 12/31/17 01/01/18 07:27 09:01 07:28 Sodium 144 140 141 Potassium 4.5 4.4 5.1 Chloride 100 99 102 Carbon Dioxide 35.7 H 32.0 34.4 H BUN 7 5 L 6 L Creatinine 0.37 L 0.35 L 0.48 L Calcium 8.4 L 8.3 L 8.5 01/02/18 06:55 Sodium 143 Potassium 4.4 Chloride 101 Carbon Dioxide 34.9 H BUN 7 Creatinine 0.35 L Calcium 8.4 L - Imaging * Head CT 12/18: Stable noncontrast head CT. No acute intracranial abnormality is identified. Chronic findings include generalized atrophy and moderate to severe chronic periventricular white matter change characteristic of chronic microvascular ischemia. There is encephalomalacia in the right parietal lobe and left cerebellum. * Patient with MRI precautions, this MRI/MRA cannot be performed. * Carotid US 12/18: Mild to moderate visible plaque formation without evidence for hemodynamically significant stenosis in the carotid arteries bilaterally. Physical Exam Vital signs: Vital Signs 01/02/18 00:00 01/02/18 04:00 01/02/18 08:00 Temperature 97.9 F 98.4 F Pulse Rate 69 79 75 Respiratory Rate 19 18 Blood Pressure 121/70 127/74 Pulse Oximetry 91 L 100 Intake & Output 01/01/18 01/02/18 01/02/18 18:59 06:59 18:59 Weight 53.3 kg 52.6 kg Other: # Incontinent Voids 3 Narrative: GENERAL: Frail, elderly female lying in bed, alert, not in acute distress, disoriented. SKIN: Cool and dry. No rash. Purpura appreciated across the upper extremities without signs of trauma, stable. HEENT: Atraumatic, normocephalic. No rhinorrhea. No visible lymphadenopathy or JVD appreciated. CARDIOVASCULAR: Irregular rate and irregular rhythm without obvious murmurs, gallops or rubs. 2+ pulses in all four extremities. RESPIRATORY: Clear to auscultation anteriorly without obvious CRW. No increased work of breathing. GASTROINTESTINAL: PEG tube in place without surrounding drainage, erythema, or warmth. Abdominal binder in place; abdominal binder clean and dry. Bowel sounds in all 4 quadrants. Patient appears to be nontender to palpation without obvious masses. MUSCULOSKELETAL: No cyanosis or edema. No calf tenderness. NEURO/PSYCH: Full neurologic exam unable to perform due to mental status at this time. Assessment and Plan - Assessment (1) Altered mental status, unspecified Code(s): R41.82 - Altered mental status, unspecified Status: Acute Plan: On admission, patient presents with altered mental status, following witnessed seizure activity. Per EMS, GCS 3. Versed given en-route to hospital. Keppra given in ED. Patient with history of seizure disorder. Treated with Keppra. Patient with history of CVA x2. Residual left sided weakness. Patient believed to be at new baseline Orders: * Telemetry. * Neuro Check q4hrs. * Vital Checks q4hrs. * Seizure Precautions. Consults: * Neurology: Repeat EEG: negative for seizure activity. Continue depakote/ dilantin. * PT/OT when patient is able to comply. PT recommends PT at rehab if patient shows rehab potential. OT recommends OT at rehab. Medications: * Provigil 200mg PEG daily. * Dilantin 130mg PEG BID. * Dilantin 100mg PEG @1300. * Divalproex Sprinkles 500mg PEG BID (2) Seizure Code(s): R56.9 - Unspecified convulsions Status: Acute Plan: Patient with history of seizure disorder. [facility] at [facility] in a[facility]. day of admission. * See Plan above. (3) Poor nutrition Code(s): E63.9 - Nutritional deficiency, unspecified Status: Acute Plan: Patient with poor nutritional status. Tube feeds started 12/22. Tube feeds held 12/23 due to suspicion for refeeding syndrome. Phosphorus normalized 12/25. Tube feeds restarted 12/25. Jevita 1.5 started at 10/ml/hr, now at goal of 50 ml /hr. Patient receives 150ml of free water flushes q4hr. PEG tube feeds started 12/31 and patient tolerating well with stable electrolytes Consults: * GI: PEG tube placement 12/31 without complications, signed off on 12/31 * Cardiology: Moderate risk for PEG, unable to further decrease risk, can proceed. Anticoagulation restarted on 12/31 after PEG placement (4) Palliative care patient Code(s): Z51.5 - Encounter for palliative care Status: Acute Plan: Palliative care consulted to assist with goals of care. The palliative team received a phone call from the patient's daughter (Sammi Koenig) who is also the [facility] decision-maker.She tells them that she is a nurse in the intensive care unit; she feels it is too early in the patient's hospitalization to make any changes in the medical treatment goals. She indicates that she is busy person and has been speaking to her mother's nurses and physicians regularly. She does not wish to receive phone calls from Palliative Care at this time but has their contact information if she should have questions or concerns. (5) History of CVA (cerebrovascular accident) Code(s): Z86.73 - Personal history of transient ischemic attack (TIA), and cerebral infarction without residual deficits Status: Chronic Plan: Patient with history of CVA x2. On admission, patient with altered mental status. Last known normal: Day prior to admission. Medications: * Continue home Atorvastatin and Eliquis Consults: * Neurology: CT stable. On anticoagulation. (6) Pneumonia Code(s): J18.9 - Pneumonia, unspecified organism Status: Acute Plan: Patient with recent history of "pneumonia" per medication review. Patient with cough on exam. Admission Labs: * WBC 5.1. Imaging: * CXR 12/18: Stable enlargement of the cardiac silhouette. Otherwise, no acute abnormality is identified. Medications: * Continue home Duoneb and Prednisone. * Robitussin 10 mL q4hr PO PRN Cough. * Tessalon 200mg q8hr PO PRN Cough. (7) GERD (gastroesophageal reflux disease) Code(s): K21.9 - Gastro-esophageal reflux disease without esophagitis Status: Chronic Plan: Patient with history of GERD. Medications: * Pantoprazole IV. (8) Atrial fibrillation Code(s): I48.91 - Unspecified atrial fibrillation Status: Chronic Plan: Patient with history of A. fib. Patient with irregular irregular rhythm on exam. Medications: * Continue home Eliquis Consults: * Cardiology: Ms. Baxter appears to have atrial fibrillation and has had it for some time. Overall, her heart rate seemed mostly controlled and we will continue her on her Carvedilol 3.125 mg b.i.d. As far as her atrial fibrillation goes, she has been anticoagulated with Eliquis 2.5 mg b.i.d. ( lower dose use due to her age and weight). Per note from the family practice team, her daughter states that she is nonwalking and so I feel that it is reasonable to keep her on anticoagulation as her chances of falling are less. She does have a minimally elevated troponin, but this is negligible at this time and would not consider further workup and this is most likely due to the overall seizure state. Would not consider further workup at this time. She does have a history of 2 previous strokes and would to continue her on her Eliquis for such as Neurology had suggested. Further recommendations will be made based on the hospital course. (9) CHF (congestive heart failure) Code(s): I50.9 - Heart failure, unspecified Status: Chronic Plan: Patient with history of congestive heart failure. Caution IVF. Medications: * Continue home Lasix and Coreg. (10) Hypertension Code(s): I10 - Essential (primary) hypertension Status: Chronic Plan: Patient with history of hypertension. Per neurology, goal less than 120/80. Medications: * Continue home Coreg. (11) Constipation Code(s): K59.00 - Constipation, unspecified Status: Acute Plan: Patient with history of constipation. Medications: * Continue home Colace and Miralax. (12) Nutrition, metabolism, and development symptoms Code(s): R63.8 - Other symptoms and signs concerning food and fluid intake Status: Acute Plan: Fluid: * Free fluid flush with tube feeds. Electrolyte: * Monitor and replete as necessary. Nutrition: * PEG tube feeds as tolerated (13) DVT prophylaxis Status: Acute Plan: Prophylaxis: * SCDs. * Eliquis - Plan Patient is an 87 year old female who presents to the [place] ED via EMS following a witnessed seizure. Patient with history of seizure disorder. Patient given Versed en-route to hospital and Keppra bolus in ED. Patient's GCS 8 at time of admission encounter. Patient admitted for evaluation and management of seizure versus CVA. Discussed Condition With: Dr. Montgomery and Dr. Calabrese Discharge Planning: Pending placement CM consulted to assist Multiple attempts have been made to contact patient's POA, Kaci Thorpe, regarding discharge planning possibly to [place] for continued care without success. <Katherin Montgomery R - Last Filed: 01/03/18 08:29> Results - Labs Result diagrams: 01/03/18 04:53 01/03/18 04:53 Abnormal lab results 01/02/18 01/02/18 01/02/18 Range/Units 06:55 16:28 20:36 RBC (4.00-5.30) mil/mm3 Hgb (11.6-15.3) gm/dL Hct (35.0-46.0) % Hubbard % (Auto) (0.0-8.0) % Hubbard # (Auto) (0.0-0.9) th/mm3 Carbon Dioxide 34.9 H (21.0-32.0) meq/L Creatinine 0.35 L (0.50-1.00) mg/dL POC Glucose 150 H 130 H (68-110) mg/dl Random Glucose (74-106) mg/dL Calcium 8.4 L (8.5-10.1) mg/dL Urine Clarity (Clear) Urine Protein (Neg-Trace) mg/dL Amorphous Sediment (None) /hpf Urine Bacteria (None) /hpf Urine Mucus (Occasional) /lpf Phenytoin (10.0-20.0) mcg/mL 01/02/18 01/03/18 01/03/18 Range/Units 21:00 00:30 04:53 RBC 3.10 L (4.00-5.30) mil/mm3 Hgb 9.4 L (11.6-15.3) gm/dL Hct 29.1 L (35.0-46.0) % Hubbard % (Auto) 21.6 H (0.0-8.0) % Hubbard # (Auto) 1.2 H (0.0-0.9) th/mm3 Carbon Dioxide (21.0-32.0) meq/L Creatinine (0.50-1.00) mg/dL POC Glucose (68-110) mg/dl Random Glucose (74-106) mg/dL Calcium (8.5-10.1) mg/dL Urine Clarity Cloudy H (Clear) Urine Protein 30 H (Neg-Trace) mg/dL Amorphous Sediment Occasional H (None) /hpf Urine Bacteria Rare H (None) /hpf Urine Mucus Few H (Occasional) /lpf Phenytoin 7.6 L (10.0-20.0) mcg/mL 01/03/18 Range/Units 04:53 RBC (4.00-5.30) mil/mm3 Hgb (11.6-15.3) gm/dL Hct (35.0-46.0) % Hubbard % (Auto) (0.0-8.0) % Hubbard # (Auto) (0.0-0.9) th/mm3 Carbon Dioxide (21.0-32.0) meq/L Creatinine 0.34 L (0.50-1.00) mg/dL POC Glucose (68-110) mg/dl Random Glucose 157 H (74-106) mg/dL Calcium 7.9 L (8.5-10.1) mg/dL Urine Clarity (Clear) Urine Protein (Neg-Trace) mg/dL Amorphous Sediment (None) /hpf Urine Bacteria (None) /hpf Urine Mucus (Occasional) /lpf Phenytoin (10.0-20.0) mcg/mL Short CBC 01/03/18 Range/Units 04:53 WBC 5.6 D (4.0-11.0) th/mm3 Hgb 9.4 L (11.6-15.3) gm/dL Hct 29.1 L (35.0-46.0) % Plt Count 159 (150-450) th/mm3 BMP 01/02/18 01/03/18 06:55 04:53 Sodium 143 141 Potassium 4.4 4.1 Chloride 101 103 Carbon Dioxide 34.9 H 30.5 BUN 7 9 Creatinine 0.35 L 0.34 L Calcium 8.4 L 7.9 L Urine 01/03/18 Range/Units 00:30 Urine Color Yellow (Yellw/Straw) Urine Clarity Cloudy H (Clear) Urine pH 8.0 (5.0-8.5) Ur Specific [place] 1.014 (1.002-1.035) Urine Protein 30 H (Neg-Trace) mg/dL Urine Glucose (UA) Negative (Negative) mg/dL - Imaging Impressions Chest X-Ray 01/02/18 00:00 CONCLUSION: 1. Bibasilar haziness consistent with atelectasis and/or mild infiltrates. 2. Cardiomegaly. 3. Degenerative changes and scoliosis of the thoracic spine. Physical Exam Vital signs: Vital Signs 01/02/18 12:00 01/02/18 16:00 01/02/18 20:00 Temperature 97.8 F 98.7 F 98.2 F Pulse Rate 79 60 76 Respiratory Rate 18 16 16 Blood Pressure 142/65 H 146/65 H 173/74 H Pulse Oximetry 94 L 98 97 01/03/18 00:00 01/03/18 04:00 Temperature 98.2 F 98.4 F Pulse Rate 75 71 Respiratory Rate 20 18 Blood Pressure 127/58 L 130/76 Pulse Oximetry 96 97 Intake & Output 01/02/18 01/03/18 01/03/18 18:59 06:59 18:59 Intake Total 1043 / 1043 Output Total 800 / 800 Balance 243 / 243 Intake: Tube Feeding 546 / 546 Tube Irrigant 150 / 150 Other 347 / 347 Output: Urine 800 / 800 Other: Date of Last Bowel Movement 01/02/18 01/02/18 Assessment and Plan - Assessment (1) Altered mental status, unspecified Code(s): R41.82 - Altered mental status, unspecified Status: Acute (2) Seizure Code(s): R56.9 - Unspecified convulsions Status: Acute (3) Poor nutrition Code(s): E63.9 - Nutritional deficiency, unspecified Status: Acute (4) Palliative care patient Code(s): Z51.5 - Encounter for palliative care Status: Acute (5) History of CVA (cerebrovascular accident) Code(s): Z86.73 - Personal history of transient ischemic attack (TIA), and cerebral infarction without residual deficits Status: Chronic (6) Pneumonia Code(s): J18.9 - Pneumonia, unspecified organism Status: Acute (7) GERD (gastroesophageal reflux disease) Code(s): K21.9 - Gastro-esophageal reflux disease without esophagitis Status: Chronic (8) Atrial fibrillation Code(s): I48.91 - Unspecified atrial fibrillation Status: Chronic (9) CHF (congestive heart failure) Code(s): I50.9 - Heart failure, unspecified Status: Chronic (10) Hypertension Code(s): I10 - Essential (primary) hypertension Status: Chronic (11) Constipation Code(s): K59.00 - Constipation, unspecified Status: Acute (12) Nutrition, metabolism, and development symptoms Code(s): R63.8 - Other symptoms and signs concerning food and fluid intake Status: Acute (13) DVT prophylaxis Status: Acute - Attending Attestation The exam, history, and the medical decision-making described in the above note were completed with the assistance of the resident physician. I reviewed and agree with the findings presented. I attest that I had a [id number] encounter with the patient on the same day, and personally performed and documented my assessment and findings in the medical record. Katherin Montgomery MD <Kaia Davis G - Last Filed: 01/02/18 13:33> (1) Altered mental status, unspecified Qualifiers: Altered mental status type: unspecified Qualified Code(s): R41.82 - Altered mental status, unspecified (6) Pneumonia Qualifiers: Pneumonia type: due to unspecified organism Laterality: unspecified laterality Lung location: unspecified part of lung Qualified Code(s): J18.9 - Pneumonia, unspecified organism <Katherin Montgomery - Last Filed: 01/03/18 08:29> (1) Altered mental status, unspecified Qualifiers: Altered mental status type: unspecified Qualified Code(s): R41.82 - Altered mental status, unspecified (6) Pneumonia Qualifiers: Pneumonia type: due to unspecified organism Laterality: unspecified laterality Lung location: unspecified part of lung Qualified Code(s): J18.9 - Pneumonia, unspecified organism
--- NOTE | 2018-01-02 19:15 | P.PNADD ---
Addendum to Inpatient Note Reason for Addendum: Additional Documentation Additional information: S: Resident team paged regarding patient's mental status. Family is bedside and has concerns that she is altered. Patient's son is bedside and daughter is on the phone, and the concern is that she is very sleepy and seems to have difficulty answering questions. She will state her name but otherwise is not understandable. There has been no acute change, fevers or abnormal vital signs. O: Most recent vitals, T 98.7, HR 60, RR 16, BP 146/65 GEN: Elderly female lying in bed in no acute distress. Does appear sleepy but is arousable. Able to state her name when asked but otherwise does not answer questions in a comprehensible manner CV: Irregular rate with an irregular rhythm without murmurs appreciated RESP: Moving air equally bilaterally. Basilar crackles appreciated bilaterally ABD: Abdomen is soft nondistended. G-tube visualized with no obvious drainage or erythema surrounding it EXT: 2+ pitting edema appreciated on the patient's left arm up to the level of the bicep. A/P: 87-year-old female was admitted after witnessed seizure versus CVA. Patient receiving feeds through PEG tube. -Patient does appear sleepy on exam. This appears to be more of a chronic changes opposed to an acute change in her mentation -Ordering Dilantin level -Ordering UA -Ordering chest x-ray as she does have basilar crackles on physical exam
--- NOTE | 2018-01-02 19:58 | XR ---
EXAM DATE: 01/02/2018 7:41 PM EDT AGE/SEX: 87 years / Female INDICATIONS: CHF. CLINICAL DATA: This is the patient's subsequent encounter. Patient reports that signs and symptoms h ave been present for 1 day and indicates a pain score of 0/10. MEDICAL/SURGICAL HISTORY: . Hypertension. Congestive heart failure. CVA. Left sided weakness. Dementia. Seizures. Arthritis. . Hysterectomy. Cervical fusion. Right hip replacement. COMPARISON: No prior exams available for comparison. FINDINGS: The heart is enlarged. Bibasilar haziness is noted consistent with probable atelectasis and/or infilt rates. Degenerative changes and scoliosis of the thoracic spine are noted. 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 CONCLUSION: 1. Bibasilar haziness consistent with atelectasis and/or mild infiltrates. 2. Cardiomegaly. 3. Degenerative changes and scoliosis of the thoracic spine. Electronically signed by: Contreras Pires MD 01/02/2018 7:56 PM EDT
[2018-01-03 05:48] LABS: Baso % (Auto) 0.4 % (0.0-2.0); Eos # (Auto) 0.1 th/mm3 (0.0-0.4); Eos % (Auto) 2.1 % (0.0-4.0); Hematocrit 29.1 % (35.0-46.0); Hemoglobin 9.4 gm/dL (11.6-15.3); Lymph # (Auto) 1.6 th/mm3 (1.0-4.8); Lymph % (Auto) 28.3 % (9.0-44.0); Mean Corpuscular HGB Conc 32.3 % (32.0-36.0); Mean Corpuscular Hemoglobin 30.3 pg (27.0-34.0); Mean Corpuscular Volume 93.8 fL (80.0-100.0); Mean Platelet Volume 8.7 fL (7.0-11.0); Mono # (Auto) 1.2 th/mm3 (0.0-0.9); Mono % (Auto) 21.6 % (0.0-8.0); Neut # (Auto) 2.7 th/mm3 (1.8-7.7); Neut % (Auto) 47.6 % (16.0-70.0); Platelet Count 159 th/mm3 (150-450); White Blood Count 5.6 th/mm3 (4.0-11.0)
[2018-01-03 06:03] LABS: Anion Gap 8 meq/L (5-15); Blood Urea Nitrogen 9 mg/dL (7-18); Calcium 7.9 mg/dL (8.5-10.1); Carbon Dioxide 30.5 meq/L (21.0-32.0); Chloride 103 meq/L (98-107); Glomerular Filtration Rate Greater Than 89 mL/min (>89); Glucose,Random 157 mg/dL (74-106); Potassium 4.1 meq/L (3.5-5.1); Sodium 141 meq/L (136-145)
[2018-01-03 08:04] LABS: Bilirubin,Urine Negative (Negative); Clarity,Urine Cloudy (Clear); Color,Urine Yellow (Yellw/Straw); Glucose,Urine (UA) Negative (Negative); Nitrite,Urine Negative (Negative); Specific Gravity,Urine 1.014 (1.002-1.035)
[2018-01-03 08:05] LABS: Amorphous Sediment,Urine Occasional /hpf; Bacteria,Urine Rare /hpf; Leukocyte Esterase,Urine Negative (Negative); Mucus,Urine Few /lpf (Occasional); Squamous Epithelial Cell,Urine 1 /hpf (0-5)
[2018-01-03] MEDS: Divalproex 125 MG Sprinkles Capsule G-TUBE SCH (08:26)
[2018-01-03] MEDS: Modafinil 200 MG Tablet G-TUBE SCH (08:28)
[2018-01-03] MEDS: Furosemide 20 MG Tablet G-TUBE SCH (08:29)
[2018-01-03] MEDS: Multivitamin/Minerals Therapeutic Tablet PO SCH (08:29)
[2018-01-03] MEDS: Carvedilol 6.25 MG Tablet G-TUBE SCH (08:30)
--- NOTE | 2018-01-03 09:06 | P.PNNEU ---
Subjective Subjective Comments: No acute events reported No headache No chest pain No dyspnea Active Medications: Active Medications Generic Name Dose Route Start Last Admin Trade Name Freq PRN Reason Stop Dose Admin Albuterol 1 ampul 01/02/18 00:01 Duoneb Neb (Prn) INH Q6HR NEB PRN SOB/WHEEZING Apixaban 2.5 mg 01/02/18 09:00 01/03/18 08:28 Eliquis PO 2.5 mg BID CARMEN Administration Atorvastatin Calcium 20 mg 01/02/18 21:00 01/02/18 20:38 Lipitor G-TUBE 20 mg HS CARMEN Administration Benzonatate 200 mg 01/02/18 00:01 Tessalon Perles PO Q8H PRN COUGH Carvedilol 6.25 mg 01/02/18 09:00 01/03/18 08:30 Coreg G-TUBE 6.25 mg Q12HR CARMEN Administration Clonidine HCl 0.1 mg 01/02/18 00:01 Catapres PO Q6H PRN SBP>180, DBP>110 Dextrose 50 ml 01/02/18 00:01 D50w Vial IV.PUSH UNSCH PRN HYPOGLYCEMIA-SEE COMMENTS Divalproex Sodium 500 mg 01/02/18 09:00 01/03/18 08:26 Depakote Sprinkles G-TUBE 500 mg BID CARMEN Administration Docusate Sodium 100 mg 01/02/18 00:01 Colace PO Q8HR PRN CONSTIPATION Enalaprilat 1.25 mg 01/02/18 00:01 Vasotec Inj IV.PUSH Q6H PRN SBP>160, DBP>90 Fosphenytoin Sodium 200 mgpe 01/02/18 09:00 01/02/18 20:36 Cerebyx Inj IV.SIG 200 mgpe Q12HR CARMEN Administration Furosemide 20 mg 01/02/18 09:00 01/03/18 08:29 Lasix G-TUBE 20 mg DAILY CARMEN Administration Glucagon 1 mg 01/02/18 00:01 Glucagon Inj OTHER UNSCH PRN for Hypoglycemia Protocol Guaifenesin/Dextromethorphan 10 ml 01/02/18 00:01 Robitussin Dm 200/20 Mg/10 Ml Liq PO Q4H PRN COUGH Sodium Chloride 1,000 mls @ 88 mls/hr 01/02/18 00:01 01/02/18 17:18 Ns Inj IV.SIG 88 mls/hr .[id number] CARMEN Administration Insulin Aspart 0 unit 01/02/18 08:00 01/02/18 21:00 Novolog Insulin Suppl Scale Inj SQ Not Given ACHS [facility] Protocol Ketorolac Tromethamine 15 mg 01/02/18 00:01 Toradol Inj IM Q6H PRN PAIN SCALE 1 TO 10 Lorazepam 0.5 mg 01/02/18 00:01 Ativan Inj IV.PUSH HS PRN SLEEP Miscellaneous 1 each 01/02/18 00:01 Pill Splitter OTHER UNSCH PRN SEE LABEL COMMENTS Modafinil 200 mg 01/02/18 09:00 01/03/18 08:28 Provigil G-TUBE 200 mg DAILY CARMEN Administration Multivitamins/Minerals 1 tab 01/02/18 09:00 01/03/18 08:29 Theragran-M PO 1 tab DAILY CARMEN Administration Pantoprazole Sodium 40 mg 01/02/18 11:00 01/02/18 10:04 Protonix Inj IV.PUSH Not Given Q24H [facility] Phenytoin Sodium 100 mg 01/02/18 09:00 01/02/18 20:39 Dilantin G-TUBE 100 mg BID CARMEN Administration Phenytoin Sodium 30 mg 01/02/18 09:00 01/03/18 08:31 Dilantin G-TUBE 30 mg BID CARMEN Administration Phenytoin Sodium 100 mg 01/02/18 13:00 01/02/18 12:08 Dilantin G-TUBE 100 mg DAILY@1300 CARMEN Administration Polyethylene Glycol 17 gm 01/02/18 09:00 01/02/18 09:29 Miralax G-TUBE Not Given DAILY [facility] Potassium Chloride 10 meq 01/02/18 09:00 01/02/18 09:28 Kcl PO 10 meq DAILY CARMEN Administration Sodium Chloride 2 ml 01/02/18 09:00 01/02/18 20:47 Ns Flush IV.FLUSH Not Given BID CARMEN Sodium Chloride 2 ml 01/02/18 00:01 Ns Flush IV.FLUSH UNSCH PRN FLUSH AFTER USING IV ACCESS Allergies/Adverse Reactions: Allergies Allergy/AdvReac Type Severity Reaction Status Date / Time acetaminophen Allergy Severe nausea and Verified 01/01/18 11:09 vomiting propoxyphene Allergy Severe nausea and Verified 01/01/18 11:09 vomiting MRI PRECAUTION Allergy Severe UNKNOWN Uncoded 01/01/18 11:09 Physical Exam Vital signs: Vital Signs 01/02/18 12:00 01/02/18 16:00 01/02/18 20:00 Temperature 97.8 F 98.7 F 98.2 F Pulse Rate 79 60 76 Respiratory Rate 18 16 16 Blood Pressure 142/65 H 146/65 H 173/74 H Pulse Oximetry 94 L 98 97 01/03/18 00:00 01/03/18 04:00 Temperature 98.2 F 98.4 F Pulse Rate 75 71 Respiratory Rate 20 18 Blood Pressure 127/58 L 130/76 Pulse Oximetry 96 97 Intake & Output 01/02/18 01/03/18 01/03/18 18:59 06:59 18:59 Intake Total 1043 / 1043 Output Total 800 / 800 Balance 243 / 243 Intake: Tube Feeding 546 / 546 Tube Irrigant 150 / 150 Other 347 / 347 Output: Urine 800 / 800 Other: Date of Last Bowel Movement 01/02/18 01/02/18 Objective Laboratory Results - last 24 hr 01/02/18 01/02/18 01/02/18 06:55 16:28 20:36 WBC RBC Hgb Hct MCV MCH MCHC RDW Plt Count MPV Neut % (Auto) Lymph % (Auto) Davie % (Auto) Eos % (Auto) Baso % (Auto) Neut # (Auto) Lymph # (Auto) Davie # (Auto) Eos # (Auto) Baso # (Auto) WBC Differential Differential Comment Sodium Potassium Chloride Carbon Dioxide Anion Gap BUN Creatinine Estimated GFR Greater than 89 POC Glucose 150 H 130 H Random Glucose Calcium Urine Color Urine Clarity Urine pH Ur Specific Scotts Urine Protein Urine Glucose (UA) Urine Ketones Urine Occult Blood Urine Nitrate Urine Bilirubin Urine Urobilinogen Ur Leukocyte Esterase Urine RBC Urine WBC Ur Squamous Epith Cells Amorphous Sediment Urine Bacteria Urine Mucus Micro UA Comment Urine Culture Comments Phenytoin 01/02/18 01/03/18 01/03/18 21:00 00:30 04:53 WBC 5.6 D RBC 3.10 L Hgb 9.4 L Hct 29.1 L MCV 93.8 MCH 30.3 MCHC 32.3 RDW 17.0 Plt Count 159 MPV 8.7 Neut % (Auto) 47.6 Lymph % (Auto) 28.3 Davie % (Auto) 21.6 H Eos % (Auto) 2.1 Baso % (Auto) 0.4 Neut # (Auto) 2.7 Lymph # (Auto) 1.6 Davie # (Auto) 1.2 H Eos # (Auto) 0.1 Baso # (Auto) 0.0 WBC Differential . Differential Comment Auto diff final Sodium Potassium Chloride Carbon Dioxide Anion Gap BUN Creatinine Estimated GFR POC Glucose Random Glucose Calcium Urine Color Yellow Urine Clarity Cloudy H Urine pH 8.0 Ur Specific Scotts 1.014 Urine Protein 30 H Urine Glucose (UA) Negative Urine Ketones Negative Urine Occult Blood Negative Urine Nitrate Negative Urine Bilirubin Negative Urine Urobilinogen Less than 2 Ur Leukocyte Esterase Negative Urine RBC 1 Urine WBC Less than 1 Ur Squamous Epith Cells 1 Amorphous Sediment Occasional H Urine Bacteria Rare H Urine Mucus Few H Micro UA Comment Cath-culture ind Urine Culture Comments Cath-cult indicated Phenytoin 7.6 L 01/03/18 01/03/18 04:53 08:46 WBC RBC Hgb Hct MCV MCH MCHC RDW Plt Count MPV Neut % (Auto) Lymph % (Auto) Davie % (Auto) Eos % (Auto) Baso % (Auto) Neut # (Auto) Lymph # (Auto) Davie # (Auto) Eos # (Auto) Baso # (Auto) WBC Differential Differential Comment Sodium 141 Potassium 4.1 Chloride 103 Carbon Dioxide 30.5 Anion Gap 8 BUN 9 Creatinine 0.34 L Estimated GFR Greater than 89 POC Glucose 134 H Random Glucose 157 H Calcium 7.9 L Urine Color Urine Clarity Urine pH Ur Specific Scotts Urine Protein Urine Glucose (UA) Urine Ketones Urine Occult Blood Urine Nitrate Urine Bilirubin Urine Urobilinogen Ur Leukocyte Esterase Urine RBC Urine WBC Ur Squamous Epith Cells Amorphous Sediment Urine Bacteria Urine Mucus Micro UA Comment Urine Culture Comments Phenytoin
--- NOTE | 2018-01-03 10:07 | P.PNFP ---
<Kaia Davis - Last Filed: 01/03/18 17:00> Subjective Interval history: Patient seen and examined this morning at 0845. Overnight, patient was difficult to arouse, but able to orient to self. Upon entering the room, patient was not responsive to her name being called and with sternal rub. A stat head CT w/o contrast was ordered (due to pt's pacemaker) at 0857. Upon returning to the room, pt opened to her eyes to her name being called and squeezed my hand when asked. She was unable to answer any of my questions, including her name. A stroke alert was not called due to sx seeming to have resolved after returning to the room. I spoke with Dr. Kapoor at 0947 to update him of her status. Results - Labs Result diagrams: 01/03/18 04:53 01/03/18 04:53 Abnormal lab results 01/02/18 01/02/18 01/02/18 Range/Units 16:28 20:36 21:00 RBC (4.00-5.30) mil/mm3 Hgb (11.6-15.3) gm/dL Hct (35.0-46.0) % [place] % (Auto) (0.0-8.0) % [place] # (Auto) (0.0-0.9) th/mm3 Creatinine (0.50-1.00) mg/dL POC Glucose 150 H 130 H (68-110) mg/dl Random Glucose (74-106) mg/dL Calcium (8.5-10.1) mg/dL Urine Clarity (Clear) Urine Protein (Neg-Trace) mg/dL Amorphous Sediment (None) /hpf Urine Bacteria (None) /hpf Urine Mucus (Occasional) /lpf Phenytoin 7.6 L (10.0-20.0) mcg/mL 01/03/18 01/03/18 01/03/18 Range/Units 00:30 04:53 04:53 RBC 3.10 L (4.00-5.30) mil/mm3 Hgb 9.4 L (11.6-15.3) gm/dL Hct 29.1 L (35.0-46.0) % [place] % (Auto) 21.6 H (0.0-8.0) % [place] # (Auto) 1.2 H (0.0-0.9) th/mm3 Creatinine 0.34 L (0.50-1.00) mg/dL POC Glucose (68-110) mg/dl Random Glucose 157 H (74-106) mg/dL Calcium 7.9 L (8.5-10.1) mg/dL Urine Clarity Cloudy H (Clear) Urine Protein 30 H (Neg-Trace) mg/dL Amorphous Sediment Occasional H (None) /hpf Urine Bacteria Rare H (None) /hpf Urine Mucus Few H (Occasional) /lpf Phenytoin (10.0-20.0) mcg/mL 01/03/18 Range/Units 08:46 RBC (4.00-5.30) mil/mm3 Hgb (11.6-15.3) gm/dL Hct (35.0-46.0) % [place] % (Auto) (0.0-8.0) % [place] # (Auto) (0.0-0.9) th/mm3 Creatinine (0.50-1.00) mg/dL POC Glucose 134 H (68-110) mg/dl Random Glucose (74-106) mg/dL Calcium (8.5-10.1) mg/dL Urine Clarity (Clear) Urine Protein (Neg-Trace) mg/dL Amorphous Sediment (None) /hpf Urine Bacteria (None) /hpf Urine Mucus (Occasional) /lpf Phenytoin (10.0-20.0) mcg/mL Short CBC 01/03/18 Range/Units 04:53 WBC 5.6 D (4.0-11.0) th/mm3 Hgb 9.4 L (11.6-15.3) gm/dL Hct 29.1 L (35.0-46.0) % Plt Count 159 (150-450) th/mm3 BMP 01/03/18 04:53 Sodium 141 Potassium 4.1 Chloride 103 Carbon Dioxide 30.5 BUN 9 Creatinine 0.34 L Calcium 7.9 L Urine 01/03/18 Range/Units 00:30 Urine Color Yellow (Yellw/Straw) Urine Clarity Cloudy H (Clear) Urine pH 8.0 (5.0-8.5) Ur Specific [place] 1.014 (1.002-1.035) Urine Protein 30 H (Neg-Trace) mg/dL Urine Glucose (UA) Negative (Negative) mg/dL - Imaging Impressions Chest X-Ray 01/02/18 00:00 CONCLUSION: 1. Bibasilar haziness consistent with atelectasis and/or mild infiltrates. 2. Cardiomegaly. 3. Degenerative changes and scoliosis of the thoracic spine. Physical Exam Vital signs: Vital Signs 01/02/18 12:00 01/02/18 16:00 01/02/18 20:00 Temperature 97.8 F 98.7 F 98.2 F Pulse Rate 79 60 76 Respiratory Rate 18 16 16 Blood Pressure 142/65 H 146/65 H 173/74 H Pulse Oximetry 94 L 98 97 01/03/18 00:00 01/03/18 04:00 Temperature 98.2 F 98.4 F Pulse Rate 75 71 Respiratory Rate 20 18 Blood Pressure 127/58 L 130/76 Pulse Oximetry 96 97 Intake & Output 01/02/18 01/03/18 01/03/18 18:59 06:59 18:59 Intake Total 1043 / 1043 Output Total 800 / 800 Balance 243 / 243 Intake: Tube Feeding 546 / 546 Tube Irrigant 150 / 150 Other 347 / 347 Output: Urine 800 / 800 Other: Date of Last Bowel Movement 01/02/18 01/02/18 Narrative: GENERAL: Frail, elderly female lying in bed, hard to arouse, not in acute distress, disoriented. SKIN: Cool and dry. No rash. 2.5cm x 1cm seemingly stage 2 ulceration at apex of gluteal cleft, 1x1cm stage 2 ulceration to the right from midline of gluteal cleft apex with bleeding. 2x0.5cm scratch on right buttock HEENT: Atraumatic, normocephalic. No rhinorrhea. No visible lymphadenopathy or JVD appreciated. CARDIOVASCULAR: Irregular rate and irregular rhythm without obvious murmurs, gallops or rubs. 2+ pulses in all four extremities. RESPIRATORY: Clear to auscultation anteriorly without obvious CRW. No increased work of breathing. GASTROINTESTINAL: PEG tube in place without surrounding drainage, erythema, or warmth. Abdominal binder in place; abdominal binder clean and dry. Bowel sounds in all 4 quadrants. Patient appears to be nontender to palpation without obvious masses. MUSCULOSKELETAL: No cyanosis or edema. No calf tenderness. 2+ pitting edema of bilateral hands. NEURO/PSYCH: Full neurologic exam unable to be performed due to mental status at this time. Assessment and Plan - Assessment (1) Acute CVA (cerebrovascular accident) Code(s): I63.9 - Cerebral infarction, unspecified Status: Acute Plan: Patient with new ischemic infarct, while on anticoagulation. Patient difficult to arouse this morning, 01/03, during rounds. Initial change noted overnight on 01/02. Ordered stat Head CT w/o contrast (due to patient ineligible for MRI due to pacemaker) 1. New large nonhemorrhagic infarct involving the right MCA territory 2. 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 Informed Neurology of the change and results of CT Ordered head of bed flat -held tube feeds due to this Allow permissible HTN -Held BP meds NIH stroke scale daily (2) Altered mental status, unspecified Code(s): R41.82 - Altered mental status, unspecified Status: Acute Plan: On admission, patient presents with altered mental status, following witnessed seizure activity. Per EMS, GCS 3. Versed given en-route to hospital. Keppra given in ED. Patient with history of seizure disorder. Treated with Keppra. Patient with history of CVA x2. Residual left sided weakness. Patient believed to be at new baseline Orders: * Telemetry. * Neuro Check q4hrs. * Vital Checks q4hrs. * Seizure Precautions. Consults: * Neurology: Repeat EEG: negative for seizure activity. Continue depakote/ dilantin. * PT/OT when patient is able to comply. PT recommends PT at rehab if patient shows rehab potential. OT recommends OT at rehab. Medications: * Provigil 200mg PEG daily. * Dilantin 130mg PEG BID. * Dilantin 100mg PEG @1300. * Divalproex Sprinkles 500mg PEG BID 01/03 Patient with status change, initially difficult to arouse. Ordered a stat head ct w/o contrast (due to patient ineligible for MRI due to pacemaker) 1. New large nonhemorrhagic infarct involving the right MCA territory 2. 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 Informed Neurology of the change UA ordered overnight, neg for nitrates and leukocyte esterase (3) Seizure Code(s): R56.9 - Unspecified convulsions Status: Acute Plan: Patient with history of seizure disorder. [facility]ed seizure at [facility] in a.m. day of admission. * See Plan above. (4) Poor nutrition Code(s): E63.9 - Nutritional deficiency, unspecified Status: Acute Plan: Patient with poor nutritional status. Tube feeds started 12/22. Tube feeds held 12/23 due to suspicion for refeeding syndrome. Phosphorus normalized 12/25. Tube feeds restarted 12/25. Jevita 1.5 started at 10/ml/hr, now at goal of 50 ml /hr. Patient receives 150ml of free water flushes q4hr. PEG tube feeds started 12/31 and patient tolerating well with stable electrolytes Consults: * GI: PEG tube placement 12/31 without complications, signed off on 12/31 * Cardiology: Moderate risk for PEG, unable to further decrease risk, can proceed. Anticoagulation restarted on 12/31 after PEG placement (5) Palliative care patient Code(s): Z51.5 - Encounter for palliative care Status: Acute Plan: Palliative care consulted to assist with goals of care. The palliative team received a phone call from the patient's daughter (Sammi Koenig) who is also the [facility] decision-maker.She tells them that she is a nurse in the intensive care unit; she feels it is too early in the patient's hospitalization to make any changes in the medical treatment goals. She indicates that she is busy person and has been speaking to her mother's nurses and physicians regularly. She does not wish to receive phone calls from Palliative Care at this time but has their contact information if she should have questions or concerns. (6) History of CVA (cerebrovascular accident) Code(s): Z86.73 - Personal history of transient ischemic attack (TIA), and cerebral infarction without residual deficits Status: Chronic Plan: Patient with history of CVA x2. On admission, patient with altered mental status. Last known normal: Day prior to admission. Medications: * Continue home Atorvastatin and Eliquis Consults: * Neurology: CT stable. On anticoagulation. (7) Pneumonia Code(s): J18.9 - Pneumonia, unspecified organism Status: Acute Plan: Patient with recent history of "pneumonia" per medication review. Patient with cough on exam. Admission Labs: * WBC 5.1. Imaging: * CXR 12/18: Stable enlargement of the cardiac silhouette. Otherwise, no acute abnormality is identified. Medications: * Continue home Duoneb and Prednisone. * Robitussin 10 mL q4hr PO PRN Cough. * Tessalon 200mg q8hr PO PRN Cough. (8) GERD (gastroesophageal reflux disease) Code(s): K21.9 - Gastro-esophageal reflux disease without esophagitis Status: Chronic Plan: Patient with history of GERD. Medications: * Pantoprazole IV. (9) Atrial fibrillation Code(s): I48.91 - Unspecified atrial fibrillation Status: Chronic Plan: Patient with history of A. fib. Patient with irregular irregular rhythm on exam. Medications: * Continue home Eliquis Consults: * Cardiology: Ms. Baxter appears to have atrial fibrillation and has had it for some time. Overall, her heart rate seemed mostly controlled and we will continue her on her Carvedilol 3.125 mg b.i.d. As far as her atrial fibrillation goes, she has been anticoagulated with Eliquis 2.5 mg b.i.d. ( lower dose use due to her age and weight). Per note from the family practice team, her daughter states that she is nonwalking and so I feel that it is reasonable to keep her on anticoagulation as her chances of falling are less. She does have a minimally elevated troponin, but this is negligible at this time and would not consider further workup and this is most likely due to the overall seizure state. Would not consider further workup at this time. She does have a history of 2 previous strokes and would to continue her on her Eliquis for such as Neurology had suggested. Further recommendations will be made based on the hospital course. (10) CHF (congestive heart failure) Code(s): I50.9 - Heart failure, unspecified Status: Chronic Plan: Patient with history of congestive heart failure. Caution IVF. Medications: * Continue home Lasix and Coreg. (11) Hypertension Code(s): I10 - Essential (primary) hypertension Status: Chronic Plan: Patient with history of hypertension. Per neurology, goal less than 120/80. Medications: * Continue home Coreg. (12) Constipation Code(s): K59.00 - Constipation, unspecified Status: Acute Plan: Patient with history of constipation. Medications: * Continue home Colace and Miralax. (13) Nutrition, metabolism, and development symptoms Code(s): R63.8 - Other symptoms and signs concerning food and fluid intake Status: Acute Plan: Fluid: * Free fluid flush with tube feeds. Electrolyte: * Monitor and replete as necessary. Nutrition: * PEG tube feeds as tolerated (14) DVT prophylaxis Status: Acute Plan: Prophylaxis: * SCDs. * Eliquis - Plan Patient is an 87 year old female who presents to the [place] ED via EMS following a witnessed seizure. Patient with history of seizure disorder. Patient given Versed en-route to hospital and Keppra bolus in ED. Patient's GCS 8 at time of admission encounter. Patient admitted for evaluation and management of seizure versus CVA. Discharge Planning: Pending placement CM consulted to assist Multiple attempts have been made to contact patient's POA, Kaci Sahilbabatunde, regarding discharge planning possibly to [place] for continued care without success. <Katherin Montgomery R - Last Filed: 01/04/18 08:07> Results - Labs Result diagrams: 01/04/18 03:42 01/04/18 03:42 Abnormal lab results 01/03/18 01/03/18 01/03/18 Range/Units 00:30 08:46 14:20 RBC (4.00-5.30) mil/mm3 Hgb (11.6-15.3) gm/dL Hct (35.0-46.0) % Creatinine (0.50-1.00) mg/dL POC Glucose 134 H 111 H (68-110) mg/dl Calcium (8.5-10.1) mg/dL Urine Clarity Cloudy H (Clear) Urine Protein 30 H (Neg-Trace) mg/dL Amorphous Sediment Occasional H (None) /hpf Urine Bacteria Rare H (None) /hpf Urine Mucus Few H (Occasional) /lpf 01/03/18 01/04/18 01/04/18 Range/Units 19:09 03:42 03:42 RBC 3.17 L (4.00-5.30) mil/mm3 Hgb 9.0 L 9.7 L (11.6-15.3) gm/dL Hct 27.8 L 30.1 L (35.0-46.0) % Creatinine 0.23 L (0.50-1.00) mg/dL POC Glucose (68-110) mg/dl Calcium 8.0 L (8.5-10.1) mg/dL Urine Clarity (Clear) Urine Protein (Neg-Trace) mg/dL Amorphous Sediment (None) /hpf Urine Bacteria (None) /hpf Urine Mucus (Occasional) /lpf Short CBC 01/03/18 01/04/18 Range/Units 19:09 03:42 WBC 7.7 (4.0-11.0) th/mm3 Hgb 9.0 L 9.7 L (11.6-15.3) gm/dL Hct 27.8 L 30.1 L (35.0-46.0) % Plt Count 182 (150-450) th/mm3 BMP 01/04/18 03:42 Sodium 140 Potassium 4.3 Chloride 103 Carbon Dioxide 28.8 BUN 9 Creatinine 0.23 L Calcium 8.0 L Urine 01/03/18 Range/Units 00:30 Urine Color Yellow (Yellw/Straw) Urine Clarity Cloudy H (Clear) Urine pH 8.0 (5.0-8.5) Ur Specific [place] 1.014 (1.002-1.035) Urine Protein 30 H (Neg-Trace) mg/dL Urine Glucose (UA) Negative (Negative) mg/dL - Imaging Impressions Head CT 01/03/18 00:00 CONCLUSION: 1. New large nonhemorrhagic infarct involving the right MCA territory 2. 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 Physical Exam Vital signs: Vital Signs 01/03/18 09:00 01/03/18 12:00 01/03/18 16:00 Temperature 98.3 F 97.9 F Pulse Rate 65 76 69 Respiratory Rate 20 Blood Pressure 147/65 H 135/64 Pulse Oximetry 93 L 20 L 01/03/18 20:00 01/04/18 00:00 01/04/18 04:00 Temperature 97.8 F 98.4 F 97.6 F Pulse Rate 71 74 78 Respiratory Rate 18 18 18 Blood Pressure 144/74 H 149/77 H Pulse Oximetry 95 96 96 Intake & Output 01/03/18 01/04/18 01/04/18 18:59 06:59 18:59 Output Total 450 / 450 Balance -450 / -450 Weight 53.7 kg Output: Urine 450 / 450 Other: # Voids 2 Assessment and Plan - Assessment (1) Acute CVA (cerebrovascular accident) Code(s): I63.9 - Cerebral infarction, unspecified Status: Acute (2) Altered mental status, unspecified Code(s): R41.82 - Altered mental status, unspecified Status: Acute (3) Seizure Code(s): R56.9 - Unspecified convulsions Status: Acute (4) Poor nutrition Code(s): E63.9 - Nutritional deficiency, unspecified Status: Acute (5) Palliative care patient Code(s): Z51.5 - Encounter for palliative care Status: Acute (6) History of CVA (cerebrovascular accident) Code(s): Z86.73 - Personal history of transient ischemic attack (TIA), and cerebral infarction without residual deficits Status: Chronic (7) Pneumonia Code(s): J18.9 - Pneumonia, unspecified organism Status: Acute (8) GERD (gastroesophageal reflux disease) Code(s): K21.9 - Gastro-esophageal reflux disease without esophagitis Status: Chronic (9) Atrial fibrillation Code(s): I48.91 - Unspecified atrial fibrillation Status: Chronic (10) CHF (congestive heart failure) Code(s): I50.9 - Heart failure, unspecified Status: Chronic (11) Hypertension Code(s): I10 - Essential (primary) hypertension Status: Chronic (12) Constipation Code(s): K59.00 - Constipation, unspecified Status: Acute (13) Nutrition, metabolism, and development symptoms Code(s): R63.8 - Other symptoms and signs concerning food and fluid intake Status: Acute (14) DVT prophylaxis Status: Acute - Attending Attestation The exam, history, and the medical decision-making described in the above note were completed with the assistance of the resident physician. I reviewed and agree with the findings presented. I attest that I had a [id number] encounter with the patient on the same day, and personally performed and documented my assessment and findings in the medical record. Patient was seen and examined after notification of status change by the resident on 01/03/18. This is late entry as my access to the EHR did not work due to the change to the new [facility] system. Patient was somewhat increased somnolence from the past few days on exam but this has been her clinical picture throughout the hospital stay. Most of this appears to be chronic steady decline. CT reflects acute event occurred sometime since the last imaging but no definitive time-line for the change in this patients status. She is not a candidate for TPA, she is already on anti-thrombotics and neurology is already consulted and caring for this patient. Stroke protocol in place. Medical management. Katherin Montgomery MD <Kaia Davis G - Last Filed: 01/03/18 17:00> (2) Altered mental status, unspecified Qualifiers: Altered mental status type: unspecified Qualified Code(s): R41.82 - Altered mental status, unspecified (7) Pneumonia Qualifiers: Pneumonia type: due to unspecified organism Laterality: unspecified laterality Lung location: unspecified part of lung Qualified Code(s): J18.9 - Pneumonia, unspecified organism <Katherin Montgomery R - Last Filed: 01/04/18 08:07> (2) Altered mental status, unspecified Qualifiers: Altered mental status type: unspecified Qualified Code(s): R41.82 - Altered mental status, unspecified (7) Pneumonia Qualifiers: Pneumonia type: due to unspecified organism Laterality: unspecified laterality Lung location: unspecified part of lung Qualified Code(s): J18.9 - Pneumonia, unspecified organism
[2018-01-03] MEDS: Phenytoin Sodium 100 MG Capsule G-TUBE SCH (14:42)
[2018-01-03 20:27] LABS: Hematocrit 27.8 % (35.0-46.0)
[2018-01-03] MEDS: Fosphenytoin Sodium Inj 100 MGPE/2 ML Vial IV.SIG SCH (22:17)
[2018-01-04] MEDS: Sod Chloride 0.9% Inj 1,000 ML IV.SIG SCH ×4 (01:21→21:45)
[2018-01-04] MEDS: Insulin NovoLOG Aspart Correctional Sugar Inj SQ SCH ×5 (01:28→22:03)
[2018-01-04] MEDS: Divalproex 125 MG Sprinkles Capsule G-TUBE SCH ×3 (01:43→21:46)
[2018-01-04] MEDS: Phenytoin Sodium 100 MG Capsule G-TUBE SCH ×4 (02:28→22:37)
[2018-01-04 04:21] LABS: Anion Gap 8 meq/L (5-15); Blood Urea Nitrogen 9 mg/dL (7-18); Carbon Dioxide 28.8 meq/L (21.0-32.0); Chloride 103 meq/L (98-107); Glomerular Filtration Rate Greater Than 89 mL/min (>89); Glucose,Random 89 mg/dL (74-106); Potassium 4.3 meq/L (3.5-5.1); Sodium 140 meq/L (136-145)
[2018-01-04 04:33] LABS: Hematocrit 30.1 % (35.0-46.0); Hemoglobin 9.7 gm/dL (11.6-15.3); Mean Corpuscular HGB Conc 32.2 % (32.0-36.0); Mean Corpuscular Hemoglobin 30.5 pg (27.0-34.0); Mean Corpuscular Volume 94.8 fL (80.0-100.0); Mean Platelet Volume 8.5 fL (7.0-11.0); Platelet Count 182 th/mm3 (150-450); Red Blood Count 3.17 mil/mm3 (4.00-5.30); Red Cell Distribution Width 16.7 % (11.6-17.2); White Blood Count 7.7 th/mm3 (4.0-11.0)
[2018-01-04] MEDS: Polyethylene Glycol 3350 17 GM Packet G-TUBE SCH ×2 (09:22→22:37)
[2018-01-04] MEDS: Modafinil 200 MG Tablet G-TUBE SCH (09:23)
[2018-01-04] MEDS: Multivitamin/Minerals Therapeutic Tablet PO SCH (09:24)
[2018-01-04] MEDS: Potassium Chloride 10 MEQ ER Capsule PO SCH ×2 (12:08→22:37)
--- NOTE | 2018-01-04 12:21 | P.PNFP ---
Subjective Interval history: Seen and examined this morning. Patient was awake and being bathed. Patient would not respond to my questions or requests for her to squeeze my hand. She would only make moaning noises. No acute events overnight. Attempted to contact daughter, Kaci Koenig at [phone], yesterday to update her of her mother's CVA and status. I left a voicemail. Tried again today and left another voicemail. <Kaia Davis - 01/04/18 14:52> Results - Labs Result diagrams: 01/04/18 03:42 01/04/18 03:42 <Katherin Montgomery R - 01/04/18 16:05> Abnormal lab results 01/03/18 01/04/18 01/04/18 Range/Units 19:09 03:42 03:42 RBC 3.17 L (4.00-5.30) mil/mm3 Hgb 9.0 L 9.7 L (11.6-15.3) gm/dL Hct 27.8 L 30.1 L (35.0-46.0) % Creatinine 0.23 L (0.50-1.00) mg/dL Calcium 8.0 L (8.5-10.1) mg/dL Short CBC 01/03/18 01/04/18 Range/Units 19:09 03:42 WBC 7.7 (4.0-11.0) th/mm3 Hgb 9.0 L 9.7 L (11.6-15.3) gm/dL Hct 27.8 L 30.1 L (35.0-46.0) % Plt Count 182 (150-450) th/mm3 [facility] 01/04/18 03:42 Sodium 140 Potassium 4.3 Chloride 103 Carbon Dioxide 28.8 BUN 9 Creatinine 0.23 L Calcium 8.0 L <Katherin Montgomery - 01/04/18 16:05> Abnormal lab results 01/03/18 01/03/18 01/04/18 Range/Units 14:20 19:09 03:42 RBC 3.17 L (4.00-5.30) mil/mm3 Hgb 9.0 L 9.7 L (11.6-15.3) gm/dL Hct 27.8 L 30.1 L (35.0-46.0) % Creatinine (0.50-1.00) mg/dL POC Glucose 111 H (68-110) mg/dl Calcium (8.5-10.1) mg/dL 01/04/18 Range/Units 03:42 RBC (4.00-5.30) mil/mm3 Hgb (11.6-15.3) gm/dL Hct (35.0-46.0) % Creatinine 0.23 L (0.50-1.00) mg/dL POC Glucose (68-110) mg/dl Calcium 8.0 L (8.5-10.1) mg/dL Short CBC 01/03/18 01/04/18 Range/Units 19:09 03:42 WBC 7.7 (4.0-11.0) th/mm3 Hgb 9.0 L 9.7 L (11.6-15.3) gm/dL Hct 27.8 L 30.1 L (35.0-46.0) % Plt Count 182 (150-450) th/mm3 BMP 01/04/18 03:42 Sodium 140 Potassium 4.3 Chloride 103 Carbon Dioxide 28.8 BUN 9 Creatinine 0.23 L Calcium 8.0 L <Kaia Davis - 01/04/18 12:21> - Imaging Impressions Head CT 01/03/18 00:00 CONCLUSION: 1. New large nonhemorrhagic infarct involving the right MCA territory 2. 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 <Kaia Davis - 01/04/18 12:21> Physical Exam Vital signs: Vital Signs 01/03/18 20:00 01/04/18 00:00 01/04/18 04:00 Temperature 97.8 F 98.4 F 97.6 F Pulse Rate 71 74 78 Respiratory Rate 18 18 18 Blood Pressure 144/74 H 149/77 H Pulse Oximetry 95 96 96 01/04/18 08:00 01/04/18 12:00 Temperature 98.8 F 100.1 F H Pulse Rate 86 79 Respiratory Rate 20 20 Blood Pressure 138/66 125/83 Pulse Oximetry 99 94 L Intake & Output 01/03/18 01/04/18 01/04/18 18:59 06:59 18:59 Output Total 450 / 450 Balance -450 / -450 Weight 53.7 kg Output: Urine 450 / 450 Other: # Voids 2 <Katherin Montgomery R - 01/04/18 16:05> Vital Signs 01/03/18 16:00 01/03/18 20:00 01/04/18 00:00 Temperature 97.9 F 97.8 F 98.4 F Pulse Rate 69 71 74 Respiratory Rate 18 18 Blood Pressure 135/64 144/74 H Pulse Oximetry 20 L 95 96 01/04/18 04:00 01/04/18 08:00 Temperature 97.6 F 98.8 F Pulse Rate 78 86 Respiratory Rate 18 20 Blood Pressure 149/77 H 138/66 Pulse Oximetry 96 99 Intake & Output 01/03/18 01/04/18 01/04/18 18:59 06:59 18:59 Output Total 450 / 450 Balance -450 / -450 Weight 53.7 kg Output: Urine 450 / 450 Other: # Voids 2 <Kaia Davis G - 01/04/18 12:21> Narrative: GENERAL: Frail, elderly female lying in bed, naked being bathed by nursing staff, not in acute distress. SKIN: Cool and dry. Bandage over sacrum c/d/i. 2x0.5cm scratch on right buttock HEENT: Atraumatic, normocephalic. No rhinorrhea. No visible lymphadenopathy or JVD appreciated. CARDIOVASCULAR: Irregular rate and irregular rhythm without obvious murmurs, gallops or rubs. 2+ pulses in all four extremities. RESPIRATORY: Clear to auscultation anteriorly without obvious CRW. No increased work of breathing. GASTROINTESTINAL: PEG tube in place without surrounding drainage, erythema, or warmth. Abdominal binder in place; abdominal binder clean and dry. Bowel sounds in all 4 quadrants. Patient appears to be nontender to palpation without obvious masses. MUSCULOSKELETAL: No cyanosis or edema. No calf tenderness. 2+ pitting edema of bilateral hands. NEURO/PSYCH: Full neurologic exam unable to be performed due to mental status at this time. <RyanKaia Presley - 01/04/18 12:21> Assessment and Plan - Assessment (1) Acute CVA (cerebrovascular accident) Code(s): I63.9 - Cerebral infarction, unspecified Status: Acute (2) Altered mental status, unspecified Code(s): R41.82 - Altered mental status, unspecified Status: Acute (3) Seizure Code(s): R56.9 - Unspecified convulsions Status: Acute (4) Poor nutrition Code(s): E63.9 - Nutritional deficiency, unspecified Status: Acute (5) Palliative care patient Code(s): Z51.5 - Encounter for palliative care Status: Acute (6) History of CVA (cerebrovascular accident) Code(s): Z86.73 - Personal history of transient ischemic attack (TIA), and cerebral infarction without residual deficits Status: Chronic (7) Pneumonia Code(s): J18.9 - Pneumonia, unspecified organism Status: Acute (8) GERD (gastroesophageal reflux disease) Code(s): K21.9 - Gastro-esophageal reflux disease without esophagitis Status: Chronic (9) Atrial fibrillation Code(s): I48.91 - Unspecified atrial fibrillation Status: Chronic (10) CHF (congestive heart failure) Code(s): I50.9 - Heart failure, unspecified Status: Chronic (11) Hypertension Code(s): I10 - Essential (primary) hypertension Status: Chronic (12) Constipation Code(s): K59.00 - Constipation, unspecified Status: Acute (13) Nutrition, metabolism, and development symptoms Code(s): R63.8 - Other symptoms and signs concerning food and fluid intake Status: Acute (14) DVT prophylaxis Status: Acute <Katherin Montgomery - 01/04/18 16:05> (1) Acute CVA (cerebrovascular accident) Code(s): I63.9 - Cerebral infarction, unspecified Status: Acute Plan: Patient with new ischemic infarct, while on anticoagulation. Patient difficult to arouse this morning, 01/03, during rounds. Initial change noted overnight on 01/02. Ordered stat Head CT w/o contrast (due to patient ineligible for MRI due to pacemaker) 1. New large nonhemorrhagic infarct involving the right MCA territory 2. 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 Informed Neurology of the change and results of CT Ordered head of bed flat -held tube feeds due to this Allow permissible HTN -Held BP meds NIH stroke scale daily (2) Altered mental status, unspecified Code(s): R41.82 - Altered mental status, unspecified Status: Acute Plan: On admission, patient presents with altered mental status, following witnessed seizure activity. Per EMS, GCS 3. Versed given en-route to hospital. Keppra given in ED. Patient with history of seizure disorder. Treated with Keppra. Patient with history of CVA x2. Residual left sided weakness. Patient believed to be at new baseline Orders: * Telemetry. * Neuro Check q4hrs. * Vital Checks q4hrs. * Seizure Precautions. Consults: * Neurology: Repeat EEG: negative for seizure activity. Continue depakote/ dilantin. * PT/OT when patient is able to comply. PT recommends PT at rehab if patient shows rehab potential. OT recommends OT at rehab. Medications: * Provigil 200mg PEG daily. * Dilantin 130mg PEG BID. * Dilantin 100mg PEG @1300. * Divalproex Sprinkles 500mg PEG BID 01/03 Patient with status change, initially difficult to arouse. Ordered a stat head ct w/o contrast (due to patient ineligible for MRI due to pacemaker) 1. New large nonhemorrhagic infarct involving the right MCA territory 2. 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 Informed Neurology of the change UA ordered overnight, neg for nitrates and leukocyte esterase (3) Seizure Code(s): R56.9 - Unspecified convulsions Status: Acute Plan: Patient with history of seizure disorder. Witnessed seizure at care home in a.m. day of admission. * See Plan above. (4) Poor nutrition Code(s): E63.9 - Nutritional deficiency, unspecified Status: Acute Plan: Patient with poor nutritional status. Tube feeds started 12/22. Tube feeds held 12/23 due to suspicion for refeeding syndrome. Phosphorus normalized 12/25. Tube feeds restarted 12/25. Jevita 1.5 started at 10/ml/hr, now at goal of 50 ml /hr. Patient receives 150ml of free water flushes q4hr. PEG tube feeds started 12/31 and patient tolerating well with stable electrolytes Consults: * GI: PEG tube placement 12/31 without complications, signed off on 12/31 * Cardiology: Moderate risk for PEG, unable to further decrease risk, can proceed. Anticoagulation restarted on 12/31 after PEG placement (5) Palliative care patient Code(s): Z51.5 - Encounter for palliative care Status: Acute Plan: Palliative care consulted to assist with goals of care. The palliative team received a phone call from the patient's daughter (Sammi Koenig) who is also the [facility] decision-maker.She tells them that she is a nurse in the intensive care unit; she feels it is too early in the patient's hospitalization to make any changes in the medical treatment goals. She indicates that she is busy person and has been speaking to her mother's nurses and physicians regularly. She does not wish to receive phone calls from Palliative Care at this time but has their contact information if she should have questions or concerns. (6) History of CVA (cerebrovascular accident) Code(s): Z86.73 - Personal history of transient ischemic attack (TIA), and cerebral infarction without residual deficits Status: Chronic Plan: Patient with history of CVA x2. On admission, patient with altered mental status. Last known normal: Day prior to admission. Medications: * Continue home Atorvastatin and Eliquis Consults: * Neurology: CT stable. On anticoagulation. (7) Pneumonia Code(s): J18.9 - Pneumonia, unspecified organism Status: Acute Plan: Patient with recent history of "pneumonia" per medication review. Patient with cough on exam. Admission Labs: * WBC 5.1. Imaging: * CXR 12/18: Stable enlargement of the cardiac silhouette. Otherwise, no acute abnormality is identified. Medications: * Continue home Duoneb and Prednisone. * Robitussin 10 mL q4hr PO PRN Cough. * Tessalon 200mg q8hr PO PRN Cough. (8) GERD (gastroesophageal reflux disease) Code(s): K21.9 - Gastro-esophageal reflux disease without esophagitis Status: Chronic Plan: Patient with history of GERD. Medications: * Pantoprazole IV. (9) Atrial fibrillation Code(s): I48.91 - Unspecified atrial fibrillation Status: Chronic Plan: Patient with history of A. fib. Patient with irregular irregular rhythm on exam. Medications: * Continue home Eliquis Consults: * Cardiology: Ms. Baxter appears to have atrial fibrillation and has had it for some time. Overall, her heart rate seemed mostly controlled and we will continue her on her Carvedilol 3.125 mg b.i.d. As far as her atrial fibrillation goes, she has been anticoagulated with Eliquis 2.5 mg b.i.d. ( lower dose use due to her age and weight). Per note from the family practice team, her daughter states that she is nonwalking and so I feel that it is reasonable to keep her on anticoagulation as her chances of falling are less. She does have a minimally elevated troponin, but this is negligible at this time and would not consider further workup and this is most likely due to the overall seizure state. Would not consider further workup at this time. She does have a history of 2 previous strokes and would to continue her on her Eliquis for such as Neurology had suggested. Further recommendations will be made based on the hospital course. (10) CHF (congestive heart failure) Code(s): I50.9 - Heart failure, unspecified Status: Chronic Plan: Patient with history of congestive heart failure. Caution IVF. Medications: * Continue home Lasix and Coreg. (11) Hypertension Code(s): I10 - Essential (primary) hypertension Status: Chronic Plan: Patient with history of hypertension. Per neurology, goal less than 120/80. Medications: * Continue home Coreg. (12) Constipation Code(s): K59.00 - Constipation, unspecified Status: Acute Plan: Patient with history of constipation. Medications: * Continue home Colace and Miralax. (13) Nutrition, metabolism, and development symptoms Code(s): R63.8 - Other symptoms and signs concerning food and fluid intake Status: Acute Plan: Fluid: * Free fluid flush with tube feeds. Electrolyte: * Monitor and replete as necessary. Nutrition: * PEG tube feeds as tolerated (14) DVT prophylaxis Status: Acute Plan: Prophylaxis: * SCDs. * Eliquis <Kaia Davis 01/04/18 14:50> - Assessment and Plan Patient is an 87 year old female who presents to the [place] [facility] via EMS following a witnessed seizure. Patient with history of seizure disorder. Patient given Versed en-route to hospital and Keppra bolus in ED. Patient's GCS 8 at time of admission encounter. Patient admitted for evaluation and management of seizure versus CVA. <Kaia Davis 01/04/18 12:21> Discussed Condition With: Dr. Montgomery <Kaia Davis 01/04/18 14:52> Discharge Planning: Pending placement CM consulted to assist Multiple attempts have been made to contact patient's POA, Kaci Thorpe, regarding discharge planning possibly to [place] for continued care without success. <Kaia Davis - 01/04/18 14:52> - Attending Attestation The exam, history, and the medical decision-making described in the above note were completed with the assistance of the resident physician. I reviewed and agree with the findings presented. I attest that I had a [id number] encounter with the patient on the same day, and personally performed an exam on the patient. This patient is unchanged in exam. She is medically stable as her medical issues can be handled as an outpatient. Placement is pending. POA has been unreachable for days. If no resolution will return patient to her previous placement tomorrow. <Katherin Montgomery - 01/04/18 16:05> <Kaia Davis G - Last Filed: 01/04/18 14:50> (2) Altered mental status, unspecified Qualifiers: Altered mental status type: unspecified Qualified Code(s): R41.82 - Altered mental status, unspecified (7) Pneumonia Qualifiers: Pneumonia type: due to unspecified organism Laterality: unspecified laterality Lung location: unspecified part of lung Qualified Code(s): J18.9 - Pneumonia, unspecified organism <Katherin Montgomery - Last Filed: 01/04/18 16:05> (2) Altered mental status, unspecified Qualifiers: Altered mental status type: unspecified Qualified Code(s): R41.82 - Altered mental status, unspecified (7) Pneumonia Qualifiers: Pneumonia type: due to unspecified organism Laterality: unspecified laterality Lung location: unspecified part of lung Qualified Code(s): J18.9 - Pneumonia, unspecified organism <Kaia Davis G - Last Filed: 01/04/18 14:50> (2) Altered mental status, unspecified Qualifiers: Altered mental status type: unspecified Qualified Code(s): R41.82 - Altered mental status, unspecified (7) Pneumonia Qualifiers: Pneumonia type: due to unspecified organism Laterality: unspecified laterality Lung location: unspecified part of lung Qualified Code(s): J18.9 - Pneumonia, unspecified organism <Katherin Montgomery R - Last Filed: 01/04/18 16:05> (2) Altered mental status, unspecified Qualifiers: Altered mental status type: unspecified Qualified Code(s): R41.82 - Altered mental status, unspecified (7) Pneumonia Qualifiers: Pneumonia type: due to unspecified organism Laterality: unspecified laterality Lung location: unspecified part of lung Qualified Code(s): J18.9 - Pneumonia, unspecified organism
[2018-01-04] MEDS: FOSPHENYTOIN IV.SIG SCH ×2 (21:46→22:12)
[2018-01-04] MEDS: Carvedilol 6.25 MG Tablet G-TUBE SCH (21:46)
[2018-01-04] MEDS: SODIUM CHLOR IV.SIG SCH ×2 (21:46→22:12)
[2018-01-04] MEDS: Pantoprazole Inj 40 MG Vial IV.PUSH SCH ×2 (22:36→22:37)
[2018-01-05] MEDS: Multivitamin/Minerals Therapeutic Tablet PO SCH (08:22)
[2018-01-05] MEDS: Phenytoin Sodium 100 MG Capsule G-TUBE SCH ×3 (08:22→21:04)
[2018-01-05] MEDS: Divalproex 125 MG Sprinkles Capsule G-TUBE SCH ×2 (08:22→21:05)
[2018-01-05] MEDS: Modafinil 200 MG Tablet G-TUBE SCH (08:23)
[2018-01-05] MEDS: Potassium Chloride 10 MEQ ER Capsule PO SCH (08:23)
[2018-01-05] MEDS: FOSPHENYTOIN IV.SIG SCH ×2 (08:23→21:06)
[2018-01-05] MEDS: Carvedilol 6.25 MG Tablet G-TUBE SCH ×2 (08:23→21:04)
[2018-01-05] MEDS: SODIUM CHLOR IV.SIG SCH ×2 (08:23→21:06)
[2018-01-05] MEDS: Insulin NovoLOG Aspart Correctional Sugar Inj SQ SCH ×4 (08:24→21:27)
[2018-01-05] MEDS: Furosemide 20 MG Tablet G-TUBE SCH (08:26)
[2018-01-05] MEDS: Polyethylene Glycol 3350 17 GM Packet G-TUBE SCH (08:27)
--- NOTE | 2018-01-05 08:34 | P.PNNEU ---
Subjective Subjective Comments: No acute events reported Active Medications: Active Medications Generic Name Dose Route Start Last Admin Trade Name Freq PRN Reason Stop Dose Admin Albuterol 1 ampul 01/02/18 00:01 Duoneb Neb (Prn) INH Q6HR NEB PRN SOB/WHEEZING Apixaban 2.5 mg 01/02/18 09:00 01/05/18 08:22 Eliquis PO 2.5 mg BID CARMEN Administration Atorvastatin Calcium 20 mg 01/02/18 21:00 01/04/18 21:47 Lipitor G-TUBE 20 mg HS CARMEN Administration Benzonatate 200 mg 01/02/18 00:01 Tessalon Perles PO Q8H PRN COUGH Carvedilol 6.25 mg 01/02/18 09:00 01/05/18 08:23 Coreg G-TUBE 6.25 mg Q12HR CARMEN Administration Clonidine HCl 0.1 mg 01/02/18 00:01 Catapres PO Q6H PRN SBP>180, DBP>110 Dextrose 50 ml 01/02/18 00:01 D50w Vial IV.PUSH UNSCH PRN HYPOGLYCEMIA-SEE COMMENTS Divalproex Sodium 500 mg 01/02/18 09:00 01/05/18 08:22 Depakote Sprinkles G-TUBE 500 mg BID CARMEN Administration Docusate Sodium 100 mg 01/02/18 00:01 Colace PO Q8HR PRN CONSTIPATION Enalaprilat 1.25 mg 01/03/18 11:56 Vasotec Inj IV.PUSH Q4H PRN For SBP > 220 or DBP > 120 Enalaprilat 1.25 mg 01/02/18 00:01 Vasotec Inj IV.PUSH Q6H PRN SBP>160, DBP>90 Furosemide 20 mg 01/02/18 09:00 01/05/18 08:26 Lasix G-TUBE 20 mg DAILY CARMEN Administration Glucagon 1 mg 01/02/18 00:01 Glucagon Inj OTHER UNSCH PRN for Hypoglycemia Protocol Guaifenesin/Dextromethorphan 10 ml 01/02/18 00:01 Robitussin Dm 200/20 Mg/10 Ml Liq PO Q4H PRN COUGH Fosphenytoin Sodium 200 mgpe/ 104 mls @ 208 mls/hr 01/04/18 09:00 01/05/18 08 :23 Sodium Chloride IV.SIG 200 mls/hr Q12HR CARMEN Administration Sodium Chloride 1,000 mls @ 88 mls/hr 01/02/18 00:01 01/04/18 21:45 Ns Inj IV.SIG 88 mls/hr .[id number] CARMEN Administration Insulin Aspart 0 unit 01/02/18 08:00 01/05/18 08:24 Novolog Insulin Suppl Scale Inj SQ 100 unit ACHS CARMEN Administration Protocol Ketorolac Tromethamine 15 mg 01/02/18 00:01 Toradol Inj IM Q6H PRN PAIN SCALE 1 TO 10 Lorazepam 0.5 mg 01/02/18 00:01 Ativan Inj IV.PUSH HS PRN SLEEP Miscellaneous 1 each 01/02/18 00:01 Pill Splitter OTHER UNSCH PRN SEE LABEL COMMENTS Modafinil 200 mg 01/02/18 09:00 01/05/18 08:23 Provigil G-TUBE 200 mg DAILY CARMEN Administration Multivitamins/Minerals 1 tab 01/02/18 09:00 01/05/18 08:22 Theragran-M PO 1 tab DAILY [facility] Administration Pantoprazole Sodium 40 mg 01/02/18 11:00 01/04/18 22:37 Protonix Inj IV.PUSH Not Given Q24H [facility] Phenytoin Sodium 100 mg 01/02/18 09:00 01/05/18 08:22 Dilantin G-TUBE 100 mg BID CARMEN Administration Phenytoin Sodium 30 mg 01/02/18 09:00 01/05/18 08:22 Dilantin G-TUBE 30 mg BID CARMEN Administration Phenytoin Sodium 100 mg 01/02/18 13:00 01/04/18 22:37 Dilantin G-TUBE Not Given DAILY@1300 [facility] Polyethylene Glycol 17 gm 01/02/18 09:00 01/05/18 08:27 Miralax G-TUBE Not Given DAILY [facility] Potassium Chloride 10 meq 01/02/18 09:00 01/05/18 08:23 Kcl PO 10 meq DAILY CARMEN Administration Sodium Chloride 2 ml 01/02/18 09:00 01/05/18 08:26 Ns Flush IV.FLUSH 2 ml BID CARMEN Administration Sodium Chloride 2 ml 01/02/18 00:01 Ns Flush IV.FLUSH UNSCH PRN FLUSH AFTER USING IV ACCESS Allergies/Adverse Reactions: Allergies Allergy/AdvReac Type Severity Reaction Status Date / Time acetaminophen Allergy Severe nausea and Verified 01/01/18 11:09 vomiting propoxyphene Allergy Severe nausea and Verified 01/01/18 11:09 vomiting MRI PRECAUTION Allergy Severe UNKNOWN Uncoded 01/01/18 11:09 Review of Systems All other systems reviewed negative except as stated in HPI Physical Exam Vital signs: Vital Signs 01/04/18 09:00 01/04/18 12:00 01/04/18 16:00 Temperature 100.1 F H 98.5 F Pulse Rate 91 H 79 105 H Respiratory Rate 20 20 Blood Pressure 125/83 154/72 H Pulse Oximetry 94 L 93 L 01/04/18 20:02 01/05/18 00:00 01/05/18 04:00 Temperature 97.9 F 97.8 F 99.1 F Pulse Rate 86 76 92 H Respiratory Rate 18 19 18 Blood Pressure 108/76 99/55 L 100/51 L Pulse Oximetry 100 96 94 L Intake & Output 01/04/18 01/05/18 01/05/18 18:59 06:59 18:59 Intake Total 1000 / 1000 1704 / 1704 Output Total 250 / 250 Balance 750 / 750 1704 / 1704 Intake: IV 1000 / 1000 1104 / 1104 Cerebyx Inj 200 MGPE In NS Inj 104 / 104 100 ML @ 208 mls/hr IV.SIG Q12HR CARMEN Rx#:[id number] NS Inj 1,000 ML @ 88 mls/hr IV. 1000 / 1000 1000 / 1000 SIG .[id number] CARMEN Rx#:[id number] Tube Feeding 300 / 300 Tube Irrigant 300 / 300 Output: Urine 250 / 250 Other: # Voids 1 Date of Last Bowel Movement 01/05/18 # Bowel Movements 0 # Incontinent Bowel Movements 3 - Constitutional no acute distress - Routine Neurological Exam Patient somewhat drowsy not following mumbles, left facial weakness, left hemiplegia no involuntary movements Objective Laboratory Results - last 24 hr 01/04/18 01/04/18 01/04/18 12:02 17:27 21:43 POC Glucose 76 170 H 243 H 01/05/18 07:35 POC Glucose 241 H Microbiology 01/03/18 00:30 Urine Culture - Preliminary Catheterized Urine No growth in 24 hours Review/Management - Diagnosis (1) Acute right MCA stroke Code(s): I63.511 - Cerebral infarction due to unspecified occlusion or stenosis of right middle cerebral artery Status: Acute Current Visit: Yes (2) Chronic right arterial ischemic stroke, MCA (middle cerebral artery) Code(s): I69.30 - Unspecified sequelae of cerebral infarction Status: Acute Current Visit: Yes (3) Hypertension Code(s): I10 - Essential (primary) hypertension Status: Chronic Current Visit: Yes - Review/Management Plan: Repeat CT has shown an acute on chronic infarction in the right hemisphere despite being on anticoagulation New stroke was likely the cause of her initial admission which was precipitated by seizures follow-up CT has finally shown an extension Recommendations Neurologic prognosis appears poor Palliative care following Aspirin at this time reinitiate anticoagulant 7-14 days after repeat CAT scan is performed and is negative for any intracranial hemorrhagic transformation. This should be done if family pursues continued aggressive medical care Follow-up Dilantin and Depakote levels Discussed with OCHOA
[2018-01-05 10:01] LABS: Hematocrit 28.2 % (35.0-46.0); Hemoglobin 9.2 gm/dL (11.6-15.3); Mean Corpuscular HGB Conc 32.7 % (32.0-36.0); Mean Corpuscular Hemoglobin 30.6 pg (27.0-34.0); Mean Corpuscular Volume 93.7 fL (80.0-100.0); Mean Platelet Volume 8.6 fL (7.0-11.0); Platelet Count 173 th/mm3 (150-450); Red Blood Count 3.01 mil/mm3 (4.00-5.30); Red Cell Distribution Width 16.7 % (11.6-17.2); White Blood Count 9.5 th/mm3 (4.0-11.0)
[2018-01-05 10:18] LABS: Anion Gap 9 meq/L (5-15); Blood Urea Nitrogen 12 mg/dL (7-18); Calcium 8.1 mg/dL (8.5-10.1); Carbon Dioxide 27.8 meq/L (21.0-32.0); Chloride 103 meq/L (98-107); Glomerular Filtration Rate Greater Than 89 mL/min (>89); Glucose,Random 226 mg/dL (74-106); Sodium 140 meq/L (136-145)
[2018-01-05] MEDS: Pantoprazole Inj 40 MG Vial IV.PUSH SCH (11:08)
--- NOTE | 2018-01-05 14:57 | P.PNFP ---
Subjective Interval history: Patient seen and examined this morning at 1045. Pt's son, King Alexia, was at the bedside. His questions were answered along with her daughter's, Kaci Koenig, by phone. They wish to continue aggressive care because that is what they feel their mother wants and do not wish for her to return to [facility]. Pt did not speak, only grunted. She was unable to answer my questions. She did open her to eyes to me saying her name. <Kaia Davis G - 01/05/18 14:57> Results - Labs Result diagrams: 01/05/18 07:36 01/05/18 07:36 <Katherin Montgomery R - 01/06/18 07:49> Abnormal lab results 01/05/18 01/05/18 01/05/18 Range/Units 07:36 07:36 07:36 RBC 3.01 L (4.00-5.30) mil/mm3 Hgb 9.2 L (11.6-15.3) gm/dL Hct 28.2 L (35.0-46.0) % Creatinine 0.42 L (0.50-1.00) mg/dL POC Glucose (68-110) mg/dl Random Glucose 226 H D (74-106) mg/dL Calcium 8.1 L (8.5-10.1) mg/dL Valproic Acid 46 L (50-100) mcg/mL 01/05/18 01/05/18 01/05/18 Range/Units 12:14 18:29 21:26 RBC (4.00-5.30) mil/mm3 Hgb (11.6-15.3) gm/dL Hct (35.0-46.0) % Creatinine (0.50-1.00) mg/dL POC Glucose 178 H 234 H 187 H (68-110) mg/dl Random Glucose (74-106) mg/dL Calcium (8.5-10.1) mg/dL Valproic Acid (50-100) mcg/mL 01/06/18 Range/Units 07:16 RBC (4.00-5.30) mil/mm3 Hgb (11.6-15.3) gm/dL Hct (35.0-46.0) % Creatinine (0.50-1.00) mg/dL POC Glucose 285 H (68-110) mg/dl Random Glucose (74-106) mg/dL Calcium (8.5-10.1) mg/dL Valproic Acid (50-100) mcg/mL Short CBC 01/05/18 Range/Units 07:36 WBC 9.5 (4.0-11.0) th/mm3 Hgb 9.2 L (11.6-15.3) gm/dL Hct 28.2 L (35.0-46.0) % Plt Count 173 (150-450) th/mm3 BMP 01/05/18 07:36 Sodium 140 Potassium 4.0 Chloride 103 Carbon Dioxide 27.8 BUN 12 Creatinine 0.42 L Calcium 8.1 L <Katherin Montgomery - 01/06/18 07:49> Abnormal lab results 01/04/18 01/04/18 01/05/18 Range/Units 17:27 21:43 07:35 RBC (4.00-5.30) mil/mm3 Hgb (11.6-15.3) gm/dL Hct (35.0-46.0) % Creatinine (0.50-1.00) mg/dL POC Glucose 170 H 243 H 241 H (68-110) mg/dl Random Glucose (74-106) mg/dL Calcium (8.5-10.1) mg/dL Valproic Acid (50-100) mcg/mL 01/05/18 01/05/18 01/05/18 Range/Units 07:36 07:36 07:36 RBC 3.01 L (4.00-5.30) mil/mm3 Hgb 9.2 L (11.6-15.3) gm/dL Hct 28.2 L (35.0-46.0) % Creatinine 0.42 L (0.50-1.00) mg/dL POC Glucose (68-110) mg/dl Random Glucose 226 H D (74-106) mg/dL Calcium 8.1 L (8.5-10.1) mg/dL Valproic Acid 46 L (50-100) mcg/mL 01/05/18 Range/Units 12:14 RBC (4.00-5.30) mil/mm3 Hgb (11.6-15.3) gm/dL Hct (35.0-46.0) % Creatinine (0.50-1.00) mg/dL POC Glucose 178 H (68-110) mg/dl Random Glucose (74-106) mg/dL Calcium (8.5-10.1) mg/dL Valproic Acid (50-100) mcg/mL Short CBC 01/05/18 Range/Units 07:36 WBC 9.5 (4.0-11.0) th/mm3 Hgb 9.2 L (11.6-15.3) gm/dL Hct 28.2 L (35.0-46.0) % Plt Count 173 (150-450) th/mm3 BMP 01/05/18 07:36 Sodium 140 Potassium 4.0 Chloride 103 Carbon Dioxide 27.8 BUN 12 Creatinine 0.42 L Calcium 8.1 L <Kaia Davis - 01/05/18 14:57> Physical Exam Vital signs: Vital Signs 01/05/18 08:00 01/05/18 09:00 01/05/18 12:00 Temperature 97.9 F 98 F Pulse Rate 88 72 86 Respiratory Rate 17 18 Blood Pressure 131/59 L 132/61 Pulse Oximetry 95 97 01/05/18 16:00 01/05/18 20:00 01/06/18 00:50 Temperature 98.3 F 98.9 F 98.8 F Pulse Rate 82 91 H 80 Respiratory Rate 18 18 Blood Pressure 127/62 117/63 116/63 Pulse Oximetry 97 95 95 01/06/18 03:07 01/06/18 05:45 Temperature 98 F Pulse Rate 79 74 Respiratory Rate 20 Blood Pressure 120/66 Pulse Oximetry 95 Intake & Output 01/05/18 01/06/18 01/06/18 18:59 06:59 18:59 Intake Total 1824 / 1824 675 / 675 Output Total 1000 / 1000 Balance 1824 / 1824 -325 / -325 Weight 54 kg Intake: IV 1104 / 1104 Cerebyx Inj 200 MGPE In NS Inj 104 / 104 100 ML @ 208 mls/hr IV.SIG Q12HR CARMEN Rx#:[id number] NS Inj 1,000 ML @ 88 mls/hr IV. 1000 / 1000 SIG .[id number] CARMEN Rx#:[id number] Oral 0 / 0 Tube Feeding 600 / 600 475 / 475 Tube Irrigant 120 / 120 Water Bolus Amount 200 / 200 Output: Urine 1000 / 1000 Other: # Incontinent Voids 1 Date of Last Bowel Movement 01/05/18 01/05/18 # Bowel Movements 0 <Katherin Montgomery R - 01/06/18 07:49> Vital Signs 01/04/18 16:00 01/04/18 20:02 01/05/18 00:00 Temperature 98.5 F 97.9 F 97.8 F Pulse Rate 105 H 86 76 Respiratory Rate 20 18 19 Blood Pressure 154/72 H 108/76 99/55 L Pulse Oximetry 93 L 100 96 01/05/18 04:00 01/05/18 08:00 01/05/18 12:00 Temperature 99.1 F 97.9 F 98 F Pulse Rate 92 H 88 86 Respiratory Rate 18 17 18 Blood Pressure 100/51 L 131/59 L 132/61 Pulse Oximetry 94 L 95 97 Intake & Output 01/04/18 01/05/18 01/05/18 18:59 06:59 18:59 Intake Total 1000 / 1000 1704 / 1704 Output Total 250 / 250 Balance 750 / 750 1704 / 1704 Intake: IV 1000 / 1000 1104 / 1104 Cerebyx Inj 200 MGPE In NS Inj 104 / 104 100 ML @ 208 mls/hr IV.SIG Q12HR CARMEN Rx#:[id number] NS Inj 1,000 ML @ 88 mls/hr IV. 1000 / 1000 1000 / 1000 SIG .[id number] CARMEN Rx#:[id number] Tube Feeding 300 / 300 Tube Irrigant 300 / 300 Output: Urine 250 / 250 Other: # Voids 1 Date of Last Bowel Movement 01/05/18 01/05/18 # Bowel Movements 0 # Incontinent Bowel Movements 3 <Kaia Davis G - 01/05/18 14:57> Narrative: GENERAL: Frail, elderly female lying in bed, naked being bathed by nursing staff, not in acute distress. SKIN: Cool and dry. Bandage over sacrum c/d/i. 2x0.5cm scratch on right buttock HEENT: Atraumatic, normocephalic. No rhinorrhea. No visible lymphadenopathy or JVD appreciated. CARDIOVASCULAR: Irregular rate and irregular rhythm without obvious murmurs, gallops or rubs. 2+ pulses in all four extremities. RESPIRATORY: Clear to auscultation anteriorly without obvious CRW. No increased work of breathing. GASTROINTESTINAL: PEG tube in place without surrounding drainage, erythema, or warmth. Abdominal binder in place; abdominal binder clean and dry. Bowel sounds in all 4 quadrants. Patient appears to be nontender to palpation without obvious masses. MUSCULOSKELETAL: No cyanosis or edema. No calf tenderness. 2+ pitting edema of bilateral hands. NEURO/PSYCH: Full neurologic exam unable to be performed due to mental status at this time. <Kaia Davis G - 01/05/18 14:57> Assessment and Plan - Assessment (1) Acute CVA (cerebrovascular accident) Code(s): I63.9 - Cerebral infarction, unspecified Status: Acute (2) Altered mental status, unspecified Code(s): R41.82 - Altered mental status, unspecified Status: Acute (3) Seizure Code(s): R56.9 - Unspecified convulsions Status: Acute (4) Poor nutrition Code(s): E63.9 - Nutritional deficiency, unspecified Status: Acute (5) Palliative care patient Code(s): Z51.5 - Encounter for palliative care Status: Acute (6) History of CVA (cerebrovascular accident) Code(s): Z86.73 - Personal history of transient ischemic attack (TIA), and cerebral infarction without residual deficits Status: Chronic (7) Pneumonia Code(s): J18.9 - Pneumonia, unspecified organism Status: Acute (8) GERD (gastroesophageal reflux disease) Code(s): K21.9 - Gastro-esophageal reflux disease without esophagitis Status: Chronic (9) Atrial fibrillation Code(s): I48.91 - Unspecified atrial fibrillation Status: Chronic (10) CHF (congestive heart failure) Code(s): I50.9 - Heart failure, unspecified Status: Chronic (11) Hypertension Code(s): I10 - Essential (primary) hypertension Status: Chronic (12) Constipation Code(s): K59.00 - Constipation, unspecified Status: Acute (13) Nutrition, metabolism, and development symptoms Code(s): R63.8 - Other symptoms and signs concerning food and fluid intake Status: Acute (14) DVT prophylaxis Status: Acute <Katherin Montgomery - 01/06/18 07:49> (1) Acute CVA (cerebrovascular accident) Code(s): I63.9 - Cerebral infarction, unspecified Status: Acute Plan: Patient with new ischemic infarct, while on anticoagulation. Patient difficult to arouse on 01/03, during rounds. Initial change noted overnight on 01/02. Ordered stat Head CT w/o contrast (due to patient ineligible for MRI due to pacemaker) 1. New large nonhemorrhagic infarct involving the right MCA territory 2. 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 Informed Neurology of the change and results of CT -Aspirin at this time reinitiate anticoagulant 7-14 days after repeat CAT scan is performed and is negative for any intracranial hemorrhagic transformation. This should be done if family pursues continued aggressive medical care (2) Altered mental status, unspecified Code(s): R41.82 - Altered mental status, unspecified Status: Acute Plan: On admission, patient presents with altered mental status, following witnessed seizure activity. Per EMS, GCS 3. Versed given en-route to hospital. Keppra given in ED. Patient with history of seizure disorder. Treated with Keppra. Patient with history of CVA x2. Residual left sided weakness. Patient believed to be at new baseline Orders: * Telemetry. * Neuro Check q4hrs. * Vital Checks q4hrs. * Seizure Precautions. Consults: * Neurology: Repeat EEG: negative for seizure activity. Continue depakote/ dilantin. * PT/OT when patient is able to comply. PT recommends PT at rehab if patient shows rehab potential. OT recommends OT at rehab. Medications: * Provigil 200mg PEG daily. * Dilantin 130mg PEG BID. * Dilantin 100mg PEG @1300. * Divalproex Sprinkles 500mg PEG BID 01/03 Patient with status change, initially difficult to arouse. Ordered a stat head ct w/o contrast (due to patient ineligible for MRI due to pacemaker) 1. New large nonhemorrhagic infarct involving the right MCA territory 2. 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 Informed Neurology of the change UA neg for nitrates and leukocyte esterase Urine Cx NG (3) Seizure Code(s): R56.9 - Unspecified convulsions Status: Acute Plan: Patient with history of seizure disorder. Witnessed seizure at residential in a.m. day of admission. * See Plan above. (4) Poor nutrition Code(s): E63.9 - Nutritional deficiency, unspecified Status: Acute Plan: Patient with poor nutritional status. Tube feeds started 12/22. Tube feeds held 12/23 due to suspicion for refeeding syndrome. Phosphorus normalized 12/25. Tube feeds restarted 12/25. Jevita 1.5 started at 10/ml/hr, now at goal of 50 ml /hr. Patient receives 150ml of free water flushes q4hr. PEG tube feeds started 12/31 and patient tolerating well with stable electrolytes Consults: * GI: PEG tube placement 12/31 without complications, signed off on 12/31 * Cardiology: Moderate risk for PEG, unable to further decrease risk, can proceed. Anticoagulation restarted on 12/31 after PEG placement (5) Palliative care patient Code(s): Z51.5 - Encounter for palliative care Status: Acute Plan: Palliative care consulted to assist with goals of care. The palliative team received a phone call from the patient's daughter (Sammi Koenig) who is also the [facility] decision-maker.She tells them that she is a nurse in the intensive care unit; she feels it is too early in the patient's hospitalization to make any changes in the medical treatment goals. She indicates that she is busy person and has been speaking to her mother's nurses and physicians regularly. She does not wish to receive phone calls from Palliative Care at this time but has their contact information if she should have questions or concerns. (6) History of CVA (cerebrovascular accident) Code(s): Z86.73 - Personal history of transient ischemic attack (TIA), and cerebral infarction without residual deficits Status: Chronic Plan: Patient with history of CVA x2. On admission, patient with altered mental status. Last known normal: Day prior to admission. Medications: * Continue home Atorvastatin and Eliquis Consults: * Neurology: CT stable. On anticoagulation. (7) Pneumonia Code(s): J18.9 - Pneumonia, unspecified organism Status: Acute Plan: Patient with recent history of "pneumonia" per medication review. Patient with cough on exam. Admission Labs: * WBC 5.1. Imaging: * CXR 12/18: Stable enlargement of the cardiac silhouette. Otherwise, no acute abnormality is identified. Medications: * Continue home Duoneb and Prednisone. * Robitussin 10 mL q4hr PO PRN Cough. * Tessalon 200mg q8hr PO PRN Cough. (8) GERD (gastroesophageal reflux disease) Code(s): K21.9 - Gastro-esophageal reflux disease without esophagitis Status: Chronic Plan: Patient with history of GERD. Medications: * Pantoprazole IV. (9) Atrial fibrillation Code(s): I48.91 - Unspecified atrial fibrillation Status: Chronic Plan: Patient with history of A. fib. Patient with irregular irregular rhythm on exam. Medications: * Continue home Eliquis Consults: * Cardiology: Ms. Baxter appears to have atrial fibrillation and has had it for some time. Overall, her heart rate seemed mostly controlled and we will continue her on her Carvedilol 3.125 mg b.i.d. As far as her atrial fibrillation goes, she has been anticoagulated with Eliquis 2.5 mg b.i.d. ( lower dose use due to her age and weight). Per note from the family practice team, her daughter states that she is nonwalking and so I feel that it is reasonable to keep her on anticoagulation as her chances of falling are less. She does have a minimally elevated troponin, but this is negligible at this time and would not consider further workup and this is most likely due to the overall seizure state. Would not consider further workup at this time. She does have a history of 2 previous strokes and would to continue her on her Eliquis for such as Neurology had suggested. Further recommendations will be made based on the hospital course. (10) CHF (congestive heart failure) Code(s): I50.9 - Heart failure, unspecified Status: Chronic Plan: Patient with history of congestive heart failure. Caution IVF. Medications: * Continue home Lasix and Coreg. (11) Hypertension Code(s): I10 - Essential (primary) hypertension Status: Chronic Plan: Patient with history of hypertension. Per neurology, goal less than 120/80. Medications: * Continue home Coreg. (12) Constipation Code(s): K59.00 - Constipation, unspecified Status: Acute Plan: Patient with history of constipation. Medications: * Continue home Colace and Miralax. (13) Nutrition, metabolism, and development symptoms Code(s): R63.8 - Other symptoms and signs concerning food and fluid intake Status: Acute Plan: Fluid: * Free fluid flush with tube feeds. Electrolyte: * Monitor and replete as necessary. Nutrition: * PEG tube feeds as tolerated (14) DVT prophylaxis Status: Acute Plan: Prophylaxis: * SCDs. * Eliquis <Kaia Davis - 01/05/18 14:46> - Assessment and Plan Patient is an 87 year old female who presents to the [place] ED via EMS following a witnessed seizure. Patient with history of seizure disorder. Patient given Versed en-route to hospital and Keppra bolus in ED. Patient's GCS 8 at time of admission encounter. Patient admitted for evaluation and management of seizure versus CVA. <Kaia Davis - 01/05/18 14:57> Discussed Condition With: Dr. Montgomery <Kaia Davis - 01/05/18 14:57> Discharge Planning: Pending placement CM consulted to assist Multiple attempts have been made to contact patient's POA, Kaci Thorpe, regarding discharge planning possibly to [place] for continued care without success. <Kaia Davis - 01/05/18 14:57> - Attending Attestation The exam, history, and the medical decision-making described in the above note were completed with the assistance of the resident physician. I reviewed and agree with the findings presented. I attest that I had a [id number] encounter with the patient on the same day, and personally performed and documented my assessment and findings in the medical record. <Katherin Montgomery - 01/06/18 07:49> <Kaia Davis G - Last Filed: 01/05/18 14:46> (2) Altered mental status, unspecified Qualifiers: Altered mental status type: unspecified Qualified Code(s): R41.82 - Altered mental status, unspecified (7) Pneumonia Qualifiers: Pneumonia type: due to unspecified organism Laterality: unspecified laterality Lung location: unspecified part of lung Qualified Code(s): J18.9 - Pneumonia, unspecified organism <Katherin Montgomery R - Last Filed: 01/06/18 07:49> (2) Altered mental status, unspecified Qualifiers: Altered mental status type: unspecified Qualified Code(s): R41.82 - Altered mental status, unspecified (7) Pneumonia Qualifiers: Pneumonia type: due to unspecified organism Laterality: unspecified laterality Lung location: unspecified part of lung Qualified Code(s): J18.9 - Pneumonia, unspecified organism <Kaai Davis G - Last Filed: 01/05/18 14:46> (2) Altered mental status, unspecified Qualifiers: Altered mental status type: unspecified Qualified Code(s): R41.82 - Altered mental status, unspecified (7) Pneumonia Qualifiers: Pneumonia type: due to unspecified organism Laterality: unspecified laterality Lung location: unspecified part of lung Qualified Code(s): J18.9 - Pneumonia, unspecified organism <Katherin Montgomery R - Last Filed: 01/06/18 07:49> (2) Altered mental status, unspecified Qualifiers: Altered mental status type: unspecified Qualified Code(s): R41.82 - Altered mental status, unspecified (7) Pneumonia Qualifiers: Pneumonia type: due to unspecified organism Laterality: unspecified laterality Lung location: unspecified part of lung Qualified Code(s): J18.9 - Pneumonia, unspecified organism
--- NOTE | 2018-01-05 17:11 | P.PNPAL ---
Reason for Visit Reason for visit: a. To assist with evaluation and management of symptoms including: encephalopathy, dysphagia b. To assist medical decision maker(s) with: better understanding of current medical conditions; weighing benefits/burdens of medical treatment options; making medical treatment decisions. . Subjective Subjective/Interval History: Patient is an 87 year old female long term resident who presented to [place] [facility] on 12/18/2017 with altered mental status after a witnessed seizure. Follow up visit for symptom management of encephalopathy and dysphagia. Patient seen and assessed in room 1531. No family at bedside. Patient does not arouse to verbal stimuli or light tactile stimuli. EEG today 12/23/2017 showed no gross epileptiform features; there was generalized slowing suggestive of an encephalopathic state. Patient was noted to be increasingly lethargic on 01/02/2018; it is unclear if this is secondary to chronic changes versus an acute change in her mentation. Negative urine culture. Follow-up chest x-ray showed bibasilar haziness consistent with atelectasis and/or mild infiltrates and cardiomegaly follow. 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 Patient tolerating artificial nutrition status post EGD with PEG placement on . Recent lab work reviewed: WBC: 9.5, hemoglobin 9.2, hematocrit 28.2, platelets 173, sodium 140, potassium 4.0, chloride 103, glucose 226, calcium 8.1, BUN 12, creatinine 0.42 and GFR > 89. Per case management note, patient does not have any more Medicare days and therefore she cannot be transferred to a facility in [place]. Patient has [place]; she was previously residing at [facility] and has been accepted back to that facility. Family considering options; they are willing to send the patient back to [facility] if there is no other alternative. Family/Friend Interactions: Daughter, Sammi Koenig, who is also the health care surrogate declines palliative care services. She indicates she is busy person and has been speaking to her mother's nurses and physicians regularly. She does not wish to receive phone calls from Palliative Care at this time but has their contact information if she should have questions or concerns. Advance Directives Health Care Surrogate: Copy in medical record Durable Power of Process Stripper: Copy in medical record Advance Directives Date on File: 12/20/17 Health Care Surrogate Name and Number: Sammi Koenig (primary):[phone] Alt HCS : Connie Hector (alternate): Significant change in goals:: Goals remain aggressive Objective Vital Signs: Vital Signs 01/04/18 20:02 01/05/18 00:00 01/05/18 04:00 Temperature 97.9 F 97.8 F 99.1 F Pulse Rate 86 76 92 H Respiratory Rate 18 19 18 Blood Pressure 108/76 99/55 L 100/51 L Pulse Oximetry 100 96 94 L 01/05/18 08:00 01/05/18 12:00 Temperature 97.9 F 98 F Pulse Rate 88 86 Respiratory Rate 17 18 Blood Pressure 131/59 L 132/61 Pulse Oximetry 95 97 Intake & Output 01/04/18 01/05/18 01/05/18 18:59 06:59 18:59 Intake Total 1000 / 1000 1704 / 1704 Output Total 250 / 250 Balance 750 / 750 1704 / 1704 Intake: IV 1000 / 1000 1104 / 1104 Cerebyx Inj 200 MGPE In NS Inj 104 / 104 100 ML @ 208 mls/hr IV.SIG Q12HR CARMEN Rx#:[id number] NS Inj 1,000 ML @ 88 mls/hr IV. 1000 / 1000 1000 / 1000 SIG .[id number] CARMEN Rx#:[id number] Tube Feeding 300 / 300 Tube Irrigant 300 / 300 Output: Urine 250 / 250 Other: # Voids 1 Date of Last Bowel Movement 01/05/18 01/05/18 # Bowel Movements 0 # Incontinent Bowel Movements 3 Physical Exam: CONSTITUTIONAL/GENERAL: This is a frail, elderly female in no acute distress TUBES/LINES/DRAINS: PIV x 2; Purewick, PEG tube SKIN: Skin is thin and fragile. Bandage over dressing C/D/I. Skin temperature appropriate. Not diaphoretic. HEAD: Atraumatic. Normocephalic. EYES: Pupils equal and round and reactive. No scleral icterus. No injection or drainage. Fundi not examined. ENT: NUIQSUT. Nose without bleeding or purulent drainage. NECK: Trachea midline. Supple, nontender. No palpable thyroid enlargement or nodularity. CARDIOVASCULAR: Irregularly irregular no JVD. Peripheral pulses symmetric. RESPIRATORY/CHEST: Symmetric, unlabored respirations. Clear to auscultation. Breath sounds diminished bilaterally. No wheezes, rales, or rhonchi. GASTROINTESTINAL: Abdomen soft, non-tender, nondistended. No guarding. Bowel sounds present. Tolerating artificial nutrition status post PEG tube placement GENITOURINARY: Without palpable bladder distension. Purewick in place. MUSCULOSKELETAL: Extremities without clubbing, cyanosis, or edema. No obvious deformities. LYMPHATICS: No palpable cervical or supraclavicular adenopathy. NEUROLOGICAL: Lethargic. Does not respond to verbal questions; does not follow commands. PSYCHIATRIC: No obvious anxiety/depression. No apparent hallucinations or other psychotic thought process. . Diagnostic Tests Laboratory: Laboratory Results - last 72 hr 01/02/18 01/02/18 01/02/18 16:28 20:36 21:00 WBC RBC Hgb Hct MCV MCH MCHC RDW Plt Count MPV Neut % (Auto) Lymph % (Auto) Hoke % (Auto) Eos % (Auto) Baso % (Auto) Neut # (Auto) Lymph # (Auto) Hoke # (Auto) Eos # (Auto) Baso # (Auto) WBC Differential Differential Comment Sodium Potassium Chloride Carbon Dioxide Anion Gap BUN Creatinine Estimated GFR POC Glucose 150 H 130 H Random Glucose Calcium Urine Color Urine Clarity Urine pH Ur Specific Colt Urine Protein Urine Glucose (UA) Urine Ketones Urine Occult Blood Urine Nitrate Urine Bilirubin Urine Urobilinogen Ur Leukocyte Esterase Urine RBC Urine WBC Ur Squamous Epith Cells Amorphous Sediment Urine Bacteria Urine Mucus Micro UA Comment Urine Culture Comments Phenytoin 7.6 L Valproic Acid 01/03/18 01/03/18 01/03/18 00:30 04:53 04:53 WBC 5.6 D RBC 3.10 L Hgb 9.4 L Hct 29.1 L MCV 93.8 MCH 30.3 MCHC 32.3 RDW 17.0 Plt Count 159 MPV 8.7 Neut % (Auto) 47.6 Lymph % (Auto) 28.3 Hoke % (Auto) 21.6 H Eos % (Auto) 2.1 Baso % (Auto) 0.4 Neut # (Auto) 2.7 Lymph # (Auto) 1.6 Hoke # (Auto) 1.2 H Eos # (Auto) 0.1 Baso # (Auto) 0.0 WBC Differential . Differential Comment Auto diff final Sodium 141 Potassium 4.1 Chloride 103 Carbon Dioxide 30.5 Anion Gap 8 BUN 9 Creatinine 0.34 L Estimated GFR Greater than 89 POC Glucose Random Glucose 157 H Calcium 7.9 L Urine Color Yellow Urine Clarity Cloudy H Urine pH 8.0 Ur Specific Colt 1.014 Urine Protein 30 H Urine Glucose (UA) Negative Urine Ketones Negative Urine Occult Blood Negative Urine Nitrate Negative Urine Bilirubin Negative Urine Urobilinogen Less than 2 Ur Leukocyte Esterase Negative Urine RBC 1 Urine WBC Less than 1 Ur Squamous Epith Cells 1 Amorphous Sediment Occasional H Urine Bacteria Rare H Urine Mucus Few H Micro UA Comment Cath-culture ind Urine Culture Comments Cath-cult indicated Phenytoin Valproic Acid 01/03/18 01/03/18 01/03/18 08:46 14:20 19:09 WBC RBC Hgb 9.0 L Hct 27.8 L MCV MCH MCHC RDW Plt Count MPV Neut % (Auto) Lymph % (Auto) Hoke % (Auto) Eos % (Auto) Baso % (Auto) Neut # (Auto) Lymph # (Auto) Hoke # (Auto) Eos # (Auto) Baso # (Auto) WBC Differential Differential Comment Sodium Potassium Chloride Carbon Dioxide Anion Gap BUN Creatinine Estimated GFR POC Glucose 134 H 111 H Random Glucose Calcium Urine Color Urine Clarity Urine pH Ur Specific Colt Urine Protein Urine Glucose (UA) Urine Ketones Urine Occult Blood Urine Nitrate Urine Bilirubin Urine Urobilinogen Ur Leukocyte Esterase Urine RBC Urine WBC Ur Squamous Epith Cells Amorphous Sediment Urine Bacteria Urine Mucus Micro UA Comment Urine Culture Comments Phenytoin Valproic Acid 01/03/18 01/04/18 01/04/18 22:56 03:42 03:42 WBC 7.7 RBC 3.17 L Hgb 9.7 L Hct 30.1 L MCV 94.8 MCH 30.5 MCHC 32.2 RDW 16.7 Plt Count 182 MPV 8.5 Neut % (Auto) Lymph % (Auto) Hoke % (Auto) Eos % (Auto) Baso % (Auto) Neut # (Auto) Lymph # (Auto) Hoke # (Auto) Eos # (Auto) Baso # (Auto) WBC Differential Differential Comment Sodium 140 Potassium 4.3 Chloride 103 Carbon Dioxide 28.8 Anion Gap 8 BUN 9 Creatinine 0.23 L Estimated GFR Greater than 89 POC Glucose 88 Random Glucose 89 Calcium 8.0 L Urine Color Urine Clarity Urine pH Ur Specific Colt Urine Protein Urine Glucose (UA) Urine Ketones Urine Occult Blood Urine Nitrate Urine Bilirubin Urine Urobilinogen Ur Leukocyte Esterase Urine RBC Urine WBC Ur Squamous Epith Cells Amorphous Sediment Urine Bacteria Urine Mucus Micro UA Comment Urine Culture Comments Phenytoin Valproic Acid 01/04/18 01/04/18 01/04/18 08:04 12:02 17:27 WBC RBC Hgb Hct MCV MCH MCHC RDW Plt Count MPV Neut % (Auto) Lymph % (Auto) Hoke % (Auto) Eos % (Auto) Baso % (Auto) Neut # (Auto) Lymph # (Auto) Hoke # (Auto) Eos # (Auto) Baso # (Auto) WBC Differential Differential Comment Sodium Potassium Chloride Carbon Dioxide Anion Gap BUN Creatinine Estimated GFR POC Glucose 81 76 170 H Random Glucose Calcium Urine Color Urine Clarity Urine pH Ur Specific Colt Urine Protein Urine Glucose (UA) Urine Ketones Urine Occult Blood Urine Nitrate Urine Bilirubin Urine Urobilinogen Ur Leukocyte Esterase Urine RBC Urine WBC Ur Squamous Epith Cells Amorphous Sediment Urine Bacteria Urine Mucus Micro UA Comment Urine Culture Comments Phenytoin Valproic Acid 01/04/18 01/05/18 01/05/18 21:43 07:35 07:36 WBC 9.5 RBC 3.01 L Hgb 9.2 L Hct 28.2 L MCV 93.7 MCH 30.6 MCHC 32.7 RDW 16.7 Plt Count 173 MPV 8.6 Neut % (Auto) Lymph % (Auto) Hoke % (Auto) Eos % (Auto) Baso % (Auto) Neut # (Auto) Lymph # (Auto) Hoke # (Auto) Eos # (Auto) Baso # (Auto) WBC Differential Differential Comment Sodium Potassium Chloride Carbon Dioxide Anion Gap BUN Creatinine Estimated GFR POC Glucose 243 H 241 H Random Glucose Calcium Urine Color Urine Clarity Urine pH Ur Specific Colt Urine Protein Urine Glucose (UA) Urine Ketones Urine Occult Blood Urine Nitrate Urine Bilirubin Urine Urobilinogen Ur Leukocyte Esterase Urine RBC Urine WBC Ur Squamous Epith Cells Amorphous Sediment Urine Bacteria Urine Mucus Micro UA Comment Urine Culture Comments Phenytoin Valproic Acid 01/05/18 01/05/18 01/05/18 07:36 07:36 07:36 WBC RBC Hgb Hct MCV MCH MCHC RDW Plt Count MPV Neut % (Auto) Lymph % (Auto) Hoke % (Auto) Eos % (Auto) Baso % (Auto) Neut # (Auto) Lymph # (Auto) Hoke # (Auto) Eos # (Auto) Baso # (Auto) WBC Differential Differential Comment Sodium 140 Potassium 4.0 Chloride 103 Carbon Dioxide 27.8 Anion Gap 9 BUN 12 Creatinine 0.42 L Estimated GFR Greater than 89 POC Glucose Random Glucose 226 H D Calcium 8.1 L Urine Color Urine Clarity Urine pH Ur Specific Colt Urine Protein Urine Glucose (UA) Urine Ketones Urine Occult Blood Urine Nitrate Urine Bilirubin Urine Urobilinogen Ur Leukocyte Esterase Urine RBC Urine WBC Ur Squamous Epith Cells Amorphous Sediment Urine Bacteria Urine Mucus Micro UA Comment Urine Culture Comments Phenytoin 12.4 Valproic Acid 46 L 01/05/18 12:14 WBC RBC Hgb Hct MCV MCH MCHC RDW Plt Count MPV Neut % (Auto) Lymph % (Auto) Hoke % (Auto) Eos % (Auto) Baso % (Auto) Neut # (Auto) Lymph # (Auto) Hoke # (Auto) Eos # (Auto) Baso # (Auto) WBC Differential Differential Comment Sodium Potassium Chloride Carbon Dioxide Anion Gap BUN Creatinine Estimated GFR POC Glucose 178 H Random Glucose Calcium Urine Color Urine Clarity Urine pH Ur Specific Colt Urine Protein Urine Glucose (UA) Urine Ketones Urine Occult Blood Urine Nitrate Urine Bilirubin Urine Urobilinogen Ur Leukocyte Esterase Urine RBC Urine WBC Ur Squamous Epith Cells Amorphous Sediment Urine Bacteria Urine Mucus Micro UA Comment Urine Culture Comments Phenytoin Valproic Acid Result Diagrams: 01/05/18 07:36 01/05/18 07:36 Microbiology: Microbiology 01/03/18 00:30 Urine Culture - Final Catheterized Urine No growth in 48 hours Imaging: Chest X-Ray 01/02/18 00:00 CONCLUSION: 1. Bibasilar haziness consistent with atelectasis and/or mild infiltrates. 2. Cardiomegaly. 3. Degenerative changes and scoliosis of the thoracic spine. Head CT 01/03/18 00:00 CONCLUSION: 1. New large nonhemorrhagic infarct involving the right MCA territory 2. 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 Assessment and Plan Pertinent Non-Medical Issues: Psychosocial: Patient is . She has a high school education but is now retired. Patient has 6 children. Patient currently resides at [facility] in [place]. Spiritual: Confucianism mira Legal: A healthcare surrogate designation form was completed on 05/06/2017 and designates Kaci Koenig as the primary healthcare surrogate decision-maker. Connie Hector is designated as the alternate healthcare surrogate decision maker. Ethical issues impacting care: No known ethical issues impacting care at this time. Important Contacts: Kaci Koenig - Health Care Surrogate: [phone] (C) Connie Jung - Power of Process Stripper/alternate [facility]: [phone] (C) Alexia Kahn - Son: [phone] (C) or [phone] (H) Prognosis: Patient is a frail 87-year-old female with a complex medical history who was admitted following a witnessed seizure status post PEG tube placement. Unfortunately, placement of a PEG tube will not improve this patient's quality of life or functional status. Given patient's advanced age, multiple comorbid conditions in addition to her acute decline, she will remain high risk for ongoing setbacks and complications. Code Status: Full Code Plan: * FULL CODE * Decision-making: Patient does not have insight or judgment related to her current medical conditions; it is unlikely that she will regain capacity. A healthcare surrogate designation form was completed on 05/06/2017 and designates Kaci Koenig as the primary healthcare surrogate decision-maker. Connie Hector is designated as the alternate healthcare surrogate decision maker. * Patient's children verbalizing ongoing aggressive goals stating that is with her mother would want. * Daughter, Sammi Koenig, who is also the health care surrogate declines palliative care services. She indicates she is busy person and has been speaking to her mother's nurses and physicians regularly. She does not wish to receive phone calls from Palliative Care at this time but has their contact information if she should have questions or concerns. * Symptom management: = Encephalopathy: Multifactoral. Contributing factors may metabolic encephalopathy, seizures, CVA, dementia. Patient admitted for evaluation and management of seizures vs. CVA. Patient has a history of previous CVA 2 with residual left-sided weakness. EEG- negative for seizure Activity = Dysphasia: Patient has failed multiple swallow studies. Status post PEG tube placement on 12/30/2017 * Per case management note, patient does not have any more Medicare days and therefore she cannot be transferred to a facility in [place]. Patient has [place]; she was previously residing at [facility] and has been accepted back to that facility. Family considering options; they are willing to send the patient back to [facility] if there is no other alternative. Attestation Attestation: To help prompt me to consider important information that might be impacting today's encounter and assessment, information from prior notes written by myself or my colleagues may have been "brought forward" into today's note. My signature on this note, however, is an attestation that I personally performed the exam, history, and/or decision-making noted today, and, unless otherwise indicated, the interactions with patient, family, and staff as well as the review of records all occurred today. I also attest that the listed assessment and stated plan reflect my best clinical judgment today based on the combination of historical information, prior notes, and today's exam/ interactions. When time spent is documented, it refers only to time spent today by the signer, or if indicated, combined time spent today by collaborating physician/nurse practitioner.
[2018-01-05] MEDS: Sod Chloride 0.9% Inj 1,000 ML IV.SIG SCH ×2 (21:07)
[2018-01-06] MEDS: Phenytoin Sodium 100 MG Capsule G-TUBE SCH ×3 (08:06→22:05)
[2018-01-06] MEDS: Divalproex 125 MG Sprinkles Capsule G-TUBE SCH ×2 (08:06→22:06)
[2018-01-06] MEDS: Furosemide 20 MG Tablet G-TUBE SCH (08:06)
[2018-01-06] MEDS: Modafinil 200 MG Tablet G-TUBE SCH (08:06)
[2018-01-06] MEDS: Multivitamin/Minerals Therapeutic Tablet PO SCH (08:06)
[2018-01-06] MEDS: Carvedilol 6.25 MG Tablet G-TUBE SCH ×2 (08:07→22:09)
[2018-01-06] MEDS: Insulin NovoLOG Aspart Correctional Sugar Inj SQ SCH ×4 (08:07→22:09)
[2018-01-06] MEDS: Potassium Chloride 10 MEQ ER Capsule PO SCH (08:07)
[2018-01-06] MEDS: Sod Chloride 0.9% Inj 1,000 ML IV.SIG SCH ×2 (08:07→22:11)
[2018-01-06] MEDS: SODIUM CHLOR IV.SIG SCH ×2 (08:08→22:01)
[2018-01-06] MEDS: Polyethylene Glycol 3350 17 GM Packet G-TUBE SCH (08:08)
[2018-01-06] MEDS: FOSPHENYTOIN IV.SIG SCH ×2 (08:08→22:01)
[2018-01-06] MEDS: Pantoprazole Inj 40 MG Vial IV.PUSH SCH (10:01)
[2018-01-06 13:08] LABS: Hematocrit 27.2 % (35.0-46.0); Hemoglobin 8.9 gm/dL (11.6-15.3); Mean Corpuscular HGB Conc 32.5 % (32.0-36.0); Mean Corpuscular Hemoglobin 31.1 pg (27.0-34.0); Mean Corpuscular Volume 95.5 fL (80.0-100.0); Mean Platelet Volume 8.4 fL (7.0-11.0); Platelet Count 168 th/mm3 (150-450); Red Blood Count 2.85 mil/mm3 (4.00-5.30); White Blood Count 6.5 th/mm3 (4.0-11.0)
--- NOTE | 2018-01-06 13:08 | P.PNFP ---
Subjective Interval history: Patient seen and examined this morning. Patient able to open her eyes to me calling her name, but is not responsive to my questions. Therefore, unable to get a review of systems. Will try to contact daughter, Kaci Koenig, later today. If unable to reach her, will call son, King Alexia. <Kaia Davis Presley - 01/06/18 17:09> 01/06/18 at 15:30 Spoke to daughter, Kaci Koenig, on the phone, who was unable to speak as she was driving down to [place], [place] from [place], [place]. She states that she will be arriving to [facility] around 5 pm today. She states that she would like to have a discussion about her mother's transfer of care with the case management assistant, Dr. Nicole and an healthcare facility administrator when she arrives. 15:40 Spoke to case management who stated that they would not be available for a meeting after 5pm, but would be willing to attend a family meeting for tomorrow with the patient's family, including Kaci Koenig, Connie Jung and Alexia Kahn, in addition to the inpatient medical team, case management to discuss their mothers transfer. 16:10 Spoke to patient's daughter, Kaci Koenig, who is agreeable to a family meeting with the inpatient medical team at 8 am on 01/07/18 and states that she will inform her other siblings of the meeting. Spoke to case management who will be available for the meeting. Spoke to palliative care who will be unable to attend, but will be available to speak with the family later in the day. 16:30 Spoke to daughter, Connie Jung, who is not currently in the area, but will be available by phone for the family meeting tomorrow. <Ivis Calabrese - 01/06/18 16:40> Results - Labs Result diagrams: 01/07/18 08:42 01/07/18 08:42 <Katherin Nicole - 01/07/18 16:36> Abnormal lab results 01/05/18 01/05/18 01/06/18 Range/Units 18:29 21:26 07:16 RBC (4.00-5.30) mil/mm3 Hgb (11.6-15.3) gm/dL Hct (35.0-46.0) % Creatinine (0.50-1.00) mg/dL POC Glucose 234 H 187 H 285 H (68-110) mg/dl Random Glucose (74-106) mg/dL Calcium (8.5-10.1) mg/dL 01/06/18 01/06/18 01/06/18 Range/Units 11:59 12:53 12:53 RBC 2.85 L (4.00-5.30) mil/mm3 Hgb 8.9 L (11.6-15.3) gm/dL Hct 27.2 L (35.0-46.0) % Creatinine 0.39 L (0.50-1.00) mg/dL POC Glucose 193 H (68-110) mg/dl Random Glucose 182 H (74-106) mg/dL Calcium 7.6 L (8.5-10.1) mg/dL Short CBC 01/06/18 Range/Units 12:53 WBC 6.5 (4.0-11.0) th/mm3 Hgb 8.9 L (11.6-15.3) gm/dL Hct 27.2 L (35.0-46.0) % Plt Count 168 (150-450) th/mm3 BMP 01/06/18 12:53 Sodium 142 Potassium 4.2 Chloride 106 Carbon Dioxide 28.8 BUN 14 Creatinine 0.39 L Calcium 7.6 L <Ivis Calabrese - 01/06/18 15:44> Abnormal lab results 01/06/18 01/06/18 01/07/18 Range/Units 16:36 19:58 08:42 RBC (4.00-5.30) mil/mm3 Hgb (11.6-15.3) gm/dL Hct (35.0-46.0) % Band Neuts % (Manual) (0-6) % Monocytes % (Manual) (0-8) % Ovalocytes (None) Acanthocytes (Spur) (None) Chloride 109 H (98-107) meq/L Creatinine 0.42 L (0.50-1.00) mg/dL POC Glucose 211 H 207 H (68-110) mg/dl Calcium 8.1 L (8.5-10.1) mg/dL B-Natriuretic Peptide (0-100) pg/mL 01/07/18 01/07/18 Range/Units 08:42 08:42 RBC 2.66 L (4.00-5.30) mil/mm3 Hgb 8.3 L (11.6-15.3) gm/dL Hct 25.3 L (35.0-46.0) % Band Neuts % (Manual) 19 H (0-6) % Monocytes % (Manual) 15 H (0-8) % Ovalocytes 1+ H (None) Acanthocytes (Spur) Occ H (None) Chloride (98-107) meq/L Creatinine (0.50-1.00) mg/dL POC Glucose (68-110) mg/dl Calcium (8.5-10.1) mg/dL B-Natriuretic Peptide 595 H (0-100) pg/mL Short CBC 01/07/18 Range/Units 08:42 WBC 10.6 D (4.0-11.0) th/mm3 Hgb 8.3 L (11.6-15.3) gm/dL Hct 25.3 L (35.0-46.0) % Plt Count 190 (150-450) th/mm3 [facility] 01/07/18 08:42 Sodium 145 Potassium 4.1 Chloride 109 H Carbon Dioxide 26.9 BUN 16 Creatinine 0.42 L Calcium 8.1 L <Katherin Nicole - 01/07/18 16:36> Abnormal lab results 01/05/18 01/05/18 01/06/18 Range/Units 18:29 21:26 07:16 POC Glucose 234 H 187 H 285 H (68-110) mg/dl 01/06/18 Range/Units 11:59 POC Glucose 193 H (68-110) mg/dl <Kaia Davis G - 01/06/18 13:08> - Imaging Impressions Chest X-Ray 01/07/18 00:00 CONCLUSION: No focal or acute pulmonary infiltrates. No significant changes compared to the prior exam. <Katherin Nicole - 01/07/18 16:36> Physical Exam Vital signs: Vital Signs 01/05/18 16:00 01/05/18 20:00 01/06/18 00:50 Temperature 98.3 F 98.9 F 98.8 F Pulse Rate 82 91 H 80 Respiratory Rate 18 18 Blood Pressure 127/62 117/63 116/63 Pulse Oximetry 97 95 95 07/05/18 03:07 01/06/18 05:45 01/06/18 08:00 Temperature 98 F 99.3 F Pulse Rate 79 74 80 Respiratory Rate 20 18 Blood Pressure 120/66 123/58 L Pulse Oximetry 95 95 01/06/18 11:37 01/06/18 11:49 Temperature 99.8 F H Pulse Rate 75 Respiratory Rate 20 Blood Pressure 120/62 Pulse Oximetry 98 Intake & Output 01/05/18 01/06/18 01/06/18 18:59 06:59 18:59 Intake Total 1824 / 1824 779 / 779 1000 / 1000 Output Total 1000 / 1000 Balance 1824 / 1824 -221 / -221 1000 / 1000 Weight 54 kg Intake: IV 1104 / 1104 104 / 104 1000 / 1000 Cerebyx Inj 200 MGPE In NS Inj 104 / 104 104 / 104 100 ML @ 208 mls/hr IV.SIG Q12HR CARMEN Rx#:[id number] NS Inj 1,000 ML @ 88 mls/hr IV. 1000 / 1000 1000 / 1000 SIG .[id number] CARMEN Rx#:[id number] Oral 0 / 0 Tube Feeding 600 / 600 475 / 475 Tube Irrigant 120 / 120 Water Bolus Amount 200 / 200 Output: Urine 1000 / 1000 Other: # Incontinent Voids 1 Date of Last Bowel Movement 01/05/18 01/05/18 01/05/18 # Bowel Movements 0 <Ivis Calabrese B - 01/06/18 15:44> Vital Signs 01/06/18 21:40 01/07/18 01:00 01/07/18 06:30 Temperature 98.8 F 100.8 F H 100 F H Pulse Rate 74 76 77 Respiratory Rate 23 21 Blood Pressure 99/50 L 96/56 L 95/54 L Pulse Oximetry 100 100 100 01/07/18 08:00 01/07/18 11:54 Temperature 100.7 F H 98.1 F Pulse Rate 93 H 80 Respiratory Rate 15 16 Blood Pressure 127/62 114/56 L Pulse Oximetry 92 L 93 L Intake & Output 01/06/18 01/07/18 01/07/18 18:59 06:59 18:59 Intake Total 2371 / 2371 1104 / 1104 Output Total 600 / 600 600 / 600 Balance 1771 / 1771 504 / 504 Weight 54 kg Intake: IV 1104 / 1104 1104 / 1104 Cerebyx Inj 200 MGPE In NS Inj 104 / 104 104 / 104 100 ML @ 208 mls/hr IV.SIG Q12HR CARMEN Rx#:[id number] NS Inj 1,000 ML @ 88 mls/hr IV. 1000 / 1000 1000 / 1000 SIG .[id number] CARMEN Rx#:[id number] Oral 0 / 0 0 / 0 Tube Feeding 500 / 500 Tube Irrigant 120 / 120 Water Bolus Amount 300 / 300 Other 347 / 347 Output: Urine 600 / 600 600 / 600 Other: # Voids 1 # Incontinent Voids 1 6 Date of Last Bowel Movement 01/05/18 01/05/18 # Bowel Movements 2 # Incontinent Bowel Movements 2 6 <Katherin Nicole R - 01/07/18 16:36> Vital Signs 01/05/18 16:00 01/05/18 20:00 01/06/18 00:50 Temperature 98.3 F 98.9 F 98.8 F Pulse Rate 82 91 H 80 Respiratory Rate 18 18 Blood Pressure 127/62 117/63 116/63 Pulse Oximetry 97 95 95 01/06/18 03:07 01/06/18 05:45 01/06/18 08:00 Temperature 98 F 99.3 F Pulse Rate 79 74 80 Respiratory Rate 20 18 Blood Pressure 120/66 123/58 L Pulse Oximetry 95 95 01/06/18 11:37 01/06/18 11:49 Temperature 99.8 F H Pulse Rate 75 Respiratory Rate 20 Blood Pressure 120/62 Pulse Oximetry 98 Intake & Output 01/05/18 01/06/18 01/06/18 18:59 06:59 18:59 Intake Total 1824 / 1824 779 / 779 1000 / 1000 Output Total 1000 / 1000 Balance 1824 / 1824 -221 / -221 1000 / 1000 Weight 54 kg Intake: IV 1104 / 1104 104 / 104 1000 / 1000 Cerebyx Inj 200 MGPE In NS Inj 104 / 104 104 / 104 100 ML @ 208 mls/hr IV.SIG Q12HR CARMEN Rx#:[id number] NS Inj 1,000 ML @ 88 mls/hr IV. 1000 / 1000 1000 / 1000 SIG .[id number] CARMEN Rx#:[id number] Oral 0 / 0 Tube Feeding 600 / 600 475 / 475 Tube Irrigant 120 / 120 Water Bolus Amount 200 / 200 Output: Urine 1000 / 1000 Other: # Incontinent Voids 1 Date of Last Bowel Movement 01/05/18 01/05/18 01/05/18 # Bowel Movements 0 <Kaia Davis - 01/06/18 13:08> Narrative: GENERAL: Frail, elderly female lying in bed sleeping, not in acute distress. SKIN: Cool and dry. HEENT: Atraumatic, normocephalic. No rhinorrhea. No visible lymphadenopathy or JVD appreciated. CARDIOVASCULAR: Irregular rate and irregular rhythm without obvious murmurs, gallops or rubs. 2+ pulses in all four extremities. RESPIRATORY: Clear to auscultation anteriorly without obvious CRW. No increased work of breathing. GASTROINTESTINAL: PEG tube in place without surrounding drainage, erythema, or warmth. Abdominal binder in place; abdominal binder clean and dry. Bowel sounds in all 4 quadrants. Patient appears to be nontender to palpation without obvious masses. MUSCULOSKELETAL: No cyanosis or edema. No calf tenderness. 2+ pitting edema of bilateral hands. NEURO/PSYCH: Full neurologic exam unable to be performed due to mental status at this time. <Kaia Davis - 01/06/18 13:08> Assessment and Plan - Assessment (1) Acute CVA (cerebrovascular accident) Code(s): I63.9 - Cerebral infarction, unspecified Status: Acute (2) Altered mental status, unspecified Code(s): R41.82 - Altered mental status, unspecified Status: Acute (3) Seizure Code(s): R56.9 - Unspecified convulsions Status: Acute (4) Poor nutrition Code(s): E63.9 - Nutritional deficiency, unspecified Status: Acute (5) Palliative care patient Code(s): Z51.5 - Encounter for palliative care Status: Acute (6) History of CVA (cerebrovascular accident) Code(s): Z86.73 - Personal history of transient ischemic attack (TIA), and cerebral infarction without residual deficits Status: Chronic (7) Pneumonia Code(s): J18.9 - Pneumonia, unspecified organism Status: Acute (8) GERD (gastroesophageal reflux disease) Code(s): K21.9 - Gastro-esophageal reflux disease without esophagitis Status: Chronic (9) Atrial fibrillation Code(s): I48.91 - Unspecified atrial fibrillation Status: Chronic (10) CHF (congestive heart failure) Code(s): I50.9 - Heart failure, unspecified Status: Chronic (11) Hypertension Code(s): I10 - Essential (primary) hypertension Status: Chronic (12) Constipation Code(s): K59.00 - Constipation, unspecified Status: Acute (13) Nutrition, metabolism, and development symptoms Code(s): R63.8 - Other symptoms and signs concerning food and fluid intake Status: Acute (14) DVT prophylaxis Status: Acute <Ivis Calabrese B - 01/06/18 15:44> (1) Acute CVA (cerebrovascular accident) Code(s): I63.9 - Cerebral infarction, unspecified Status: Acute Plan: Infarct see on CT scan on 01/03. My understanding of the neurology picture is that this most likely is the original event that has now extended and visible on CT. However, cannot tell this with 100% certainty since no MRI was done on admission because pt is unable to have that testing. (2) Altered mental status, unspecified Code(s): R41.82 - Altered mental status, unspecified Status: Acute (3) Seizure Code(s): R56.9 - Unspecified convulsions Status: Acute (4) Poor nutrition Code(s): E63.9 - Nutritional deficiency, unspecified Status: Acute (5) Palliative care patient Code(s): Z51.5 - Encounter for palliative care Status: Acute (6) History of CVA (cerebrovascular accident) Code(s): Z86.73 - Personal history of transient ischemic attack (TIA), and cerebral infarction without residual deficits Status: Chronic (7) Pneumonia Code(s): J18.9 - Pneumonia, unspecified organism Status: Acute (8) GERD (gastroesophageal reflux disease) Code(s): K21.9 - Gastro-esophageal reflux disease without esophagitis Status: Chronic (9) Atrial fibrillation Code(s): I48.91 - Unspecified atrial fibrillation Status: Chronic (10) CHF (congestive heart failure) Code(s): I50.9 - Heart failure, unspecified Status: Chronic (11) Hypertension Code(s): I10 - Essential (primary) hypertension Status: Chronic (12) Constipation Code(s): K59.00 - Constipation, unspecified Status: Acute (13) Nutrition, metabolism, and development symptoms Code(s): R63.8 - Other symptoms and signs concerning food and fluid intake Status: Acute (14) DVT prophylaxis Status: Acute <Katherin Nicole - 01/07/18 16:36> (1) Acute CVA (cerebrovascular accident) Code(s): I63.9 - Cerebral infarction, unspecified Status: Acute Plan: Patient with new ischemic infarct, while on anticoagulation. Patient difficult to arouse on 01/03, during rounds. Initial change noted overnight on 01/02. Ordered stat Head CT w/o contrast (due to patient ineligible for MRI due to pacemaker) 1. New large nonhemorrhagic infarct involving the right MCA territory 2. 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 Informed Neurology of the change and results of CT -Aspirin at this time reinitiate anticoagulant 7-14 days after repeat CAT scan is performed and is negative for any intracranial hemorrhagic transformation. This should be done if family pursues continued aggressive medical care (2) Altered mental status, unspecified Code(s): R41.82 - Altered mental status, unspecified Status: Acute Plan: On admission, patient presents with altered mental status, following witnessed seizure activity. Per EMS, GCS 3. Versed given en-route to hospital. Keppra given in ED. Patient with history of seizure disorder. Treated with Keppra. Patient with history of CVA x2. Residual left sided weakness. Patient believed to be at new baseline Orders: * Telemetry. * Neuro Check q4hrs. * Vital Checks q4hrs. * Seizure Precautions. Consults: * Neurology: Repeat EEG: negative for seizure activity. Continue depakote/ dilantin. * PT/OT when patient is able to comply. PT recommends PT at rehab if patient shows rehab potential. OT recommends OT at rehab. Medications: * Provigil 200mg PEG daily. * Dilantin 130mg PEG BID. * Dilantin 100mg PEG @1300. * Divalproex Sprinkles 500mg PEG BID (3) Seizure Code(s): R56.9 - Unspecified convulsions Status: Acute Plan: Patient with history of seizure disorder. Witnessed seizure at longterm in a.m. day of admission. * See Plan above. (4) Poor nutrition Code(s): E63.9 - Nutritional deficiency, unspecified Status: Acute Plan: Patient with poor nutritional status. Tube feeds started 12/22. Tube feeds held 12/23 due to suspicion for refeeding syndrome. Phosphorus normalized 12/25. Tube feeds restarted 12/25. Jevita 1.5 started at 10/ml/hr, now at goal of 50 ml /hr. Patient receives 150ml of free water flushes q4hr. PEG tube feeds started 12/31 and patient tolerating well with stable electrolytes Consults: * GI: PEG tube placement 12/31 without complications, signed off on 12/31 * Cardiology: Moderate risk for PEG, unable to further decrease risk, can proceed. Anticoagulation restarted on 12/31 after PEG placement (5) Palliative care patient Code(s): Z51.5 - Encounter for palliative care Status: Acute Plan: Palliative care consulted to assist with goals of care. The palliative team received a phone call from the patient's daughter (Sammi Koenig) who is also the [facility] decision-maker.She tells them that she is a nurse in the intensive care unit; she feels it is too early in the patient's hospitalization to make any changes in the medical treatment goals. She indicates that she is busy person and has been speaking to her mother's nurses and physicians regularly. She does not wish to receive phone calls from Palliative Care at this time but has their contact information if she should have questions or concerns. (6) History of CVA (cerebrovascular accident) Code(s): Z86.73 - Personal history of transient ischemic attack (TIA), and cerebral infarction without residual deficits Status: Chronic Plan: Patient with history of CVA x2. On admission, patient with altered mental status. Last known normal: Day prior to admission. Medications: * Continue home Atorvastatin and Eliquis Consults: * Neurology: CT stable. On anticoagulation. (7) Pneumonia Code(s): J18.9 - Pneumonia, unspecified organism Status: Acute Plan: Patient with recent history of "pneumonia" per medication review. Patient with cough on exam. Admission Labs: * WBC 5.1. Imaging: * CXR 12/18: Stable enlargement of the cardiac silhouette. Otherwise, no acute abnormality is identified. Medications: * Continue home Duoneb and Prednisone. * Robitussin 10 mL q4hr PO PRN Cough. * Tessalon 200mg q8hr PO PRN Cough. (8) GERD (gastroesophageal reflux disease) Code(s): K21.9 - Gastro-esophageal reflux disease without esophagitis Status: Chronic Plan: Patient with history of GERD. Medications: * Pantoprazole IV. (9) Atrial fibrillation Code(s): I48.91 - Unspecified atrial fibrillation Status: Chronic Plan: Patient with history of A. fib. Patient with irregular irregular rhythm on exam. Medications: * Continue home Eliquis Consults: * Cardiology: Ms. Baxter appears to have atrial fibrillation and has had it for some time. Overall, her heart rate seemed mostly controlled and we will continue her on her Carvedilol 3.125 mg b.i.d. As far as her atrial fibrillation goes, she has been anticoagulated with Eliquis 2.5 mg b.i.d. ( lower dose use due to her age and weight). Per note from the family practice team, her daughter states that she is nonwalking and so I feel that it is reasonable to keep her on anticoagulation as her chances of falling are less. She does have a minimally elevated troponin, but this is negligible at this time and would not consider further workup and this is most likely due to the overall seizure state. Would not consider further workup at this time. She does have a history of 2 previous strokes and would to continue her on her Eliquis for such as Neurology had suggested. Further recommendations will be made based on the hospital course. (10) CHF (congestive heart failure) Code(s): I50.9 - Heart failure, unspecified Status: Chronic Plan: Patient with history of congestive heart failure. Caution IVF. Medications: * Continue home Lasix and Coreg. (11) Hypertension Code(s): I10 - Essential (primary) hypertension Status: Chronic Plan: Patient with history of hypertension. Per neurology, goal less than 120/80. Medications: * Continue home Coreg. (12) Constipation Code(s): K59.00 - Constipation, unspecified Status: Acute Plan: Patient with history of constipation. Medications: * Continue home Colace and Miralax. (13) Nutrition, metabolism, and development symptoms Code(s): R63.8 - Other symptoms and signs concerning food and fluid intake Status: Acute Plan: Fluid: * Free fluid flush with tube feeds. Electrolyte: * Monitor and replete as necessary. Nutrition: * PEG tube feeds as tolerated (14) DVT prophylaxis Status: Acute Plan: Prophylaxis: * SCDs. <Kaia Davis - 01/06/18 17:11> - Assessment and Plan Patient is an 87 year old female who presents to the [place] ED via EMS following a witnessed seizure. Patient with history of seizure disorder. Patient given Versed en-route to hospital and Keppra bolus in ED. Patient's GCS 8 at time of admission encounter. Patient admitted for evaluation and management of seizure versus CVA. <Kaia Davis - 01/06/18 13:08> Discharge Planning: Pending placement CM consulted to assist <Kaia Davis - 01/06/18 13:08> - Attending Attestation The exam, history, and the medical decision-making described in the above note were completed with the assistance of the resident physician. I reviewed and agree with the findings presented. I attest that I had a [id number] encounter with the patient on the same day, and personally performed and documented my assessment and findings in the medical record. <Katherin Nicole - 01/07/18 16:36> <Kaia Davis - Last Filed: 01/06/18 17:11> (2) Altered mental status, unspecified Qualifiers: Altered mental status type: unspecified Qualified Code(s): R41.82 - Altered mental status, unspecified (7) Pneumonia Qualifiers: Pneumonia type: due to unspecified organism Laterality: unspecified laterality Lung location: unspecified part of lung Qualified Code(s): J18.9 - Pneumonia, unspecified organism <Ivis Calabrese - Last Filed: 01/06/18 15:44> (2) Altered mental status, unspecified Qualifiers: Altered mental status type: unspecified Qualified Code(s): R41.82 - Altered mental status, unspecified (7) Pneumonia Qualifiers: Pneumonia type: due to unspecified organism Laterality: unspecified laterality Lung location: unspecified part of lung Qualified Code(s): J18.9 - Pneumonia, unspecified organism <Katherin Nicole - Last Filed: 01/07/18 16:36> (2) Altered mental status, unspecified Qualifiers: Altered mental status type: unspecified Qualified Code(s): R41.82 - Altered mental status, unspecified (7) Pneumonia Qualifiers: Pneumonia type: due to unspecified organism Laterality: unspecified laterality Lung location: unspecified part of lung Qualified Code(s): J18.9 - Pneumonia, unspecified organism <Kaia Davis G - Last Filed: 01/06/18 17:11> (2) Altered mental status, unspecified Qualifiers: Altered mental status type: unspecified Qualified Code(s): R41.82 - Altered mental status, unspecified (7) Pneumonia Qualifiers: Pneumonia type: due to unspecified organism Laterality: unspecified laterality Lung location: unspecified part of lung Qualified Code(s): J18.9 - Pneumonia, unspecified organism <Ivis Calabrese - Last Filed: 01/06/18 15:44> (2) Altered mental status, unspecified Qualifiers: Altered mental status type: unspecified Qualified Code(s): R41.82 - Altered mental status, unspecified (7) Pneumonia Qualifiers: Pneumonia type: due to unspecified organism Laterality: unspecified laterality Lung location: unspecified part of lung Qualified Code(s): J18.9 - Pneumonia, unspecified organism <Katherin Nicole - Last Filed: 01/07/18 16:36> (2) Altered mental status, unspecified Qualifiers: Altered mental status type: unspecified Qualified Code(s): R41.82 - Altered mental status, unspecified (7) Pneumonia Qualifiers: Pneumonia type: due to unspecified organism Laterality: unspecified laterality Lung location: unspecified part of lung Qualified Code(s): J18.9 - Pneumonia, unspecified organism
[2018-01-06 13:29] LABS: Anion Gap 7 meq/L (5-15); Blood Urea Nitrogen 14 mg/dL (7-18); Calcium 7.6 mg/dL (8.5-10.1); Carbon Dioxide 28.8 meq/L (21.0-32.0); Chloride 106 meq/L (98-107); Glomerular Filtration Rate Greater Than 89 mL/min (>89); Glucose,Random 182 mg/dL (74-106); Potassium 4.2 meq/L (3.5-5.1); Sodium 142 meq/L (136-145)
--- NOTE | 2018-01-07 02:05 | P.DIET ---
Nutritional Evaluation Type of nutrition evaluation: follow-up Nutrition consult regarding: Tube Feeding Nutrition screening: [facility] Screening comments: s/p PEG placement Objective - Diagnosis Seizures, AMS. PMH see H&P - Objective % IBW: 88 Body Weight Used for Calculations: Actual Energy Needs - Lower Range (kCal/kg): 33 Energy Needs - Upper Range (kCal/kg): 38 Lower Limit kCal/kg (kCals): 1,584 Upper Limit kCal/kg (kCals): 1,824 Lower Limit Protein Factor (Grams per Kg): 1.2 Upper Limit Protein Factor (Grams per Kg): 1.5 Lower Protein Needs (Protein): 58 Upper Protein Needs (Protein): 72 Dietitian Reviewed in Medical Record: Current diet, Curent medications, Intake & Output, Labs, Tube feeding Diet Order: NONE Wound Care Note: right buttock skin tear noted Objective Comments: BGlu 207 Assessment Assessment: Pt. with noted wt. gain, +UOP, +BM and tolerating feeding. Currently there is no active TFing order entered into [employer]. Pt. continues to receive Dilantin BID requiring tfing to be turned off for 4 hours. Recommend Jevity 1.5 @ goal rate of 60mls/hr over 20 hours. If BGlu levels remain elevated may need to consider changing the formula to Glucerna 1.5. Continue to monitor TFing tolerance, labs, wt. and skin Recommendations: 1. Recommend Jevity 1.5 @ goal rate of 60mls/hr over 20 hours. 2. If BGlu levels remain elevated may need to consider changing the formula to Glucerna 1.5. 3. Continue to monitor TFing tolerance, labs, wt. and skin 4. Reorder TFing order Dietitian to Monitor: Lab values, Glucose level, Tube feeding tolerance, Weight change, Residuals
--- NOTE | 2018-01-07 09:08 | XR ---
EXAM DATE: 01/07/2018 9:03 AM EDT AGE/SEX: 87 years / Female INDICATIONS: Fever. CLINICAL DATA: This is the patient's subsequent encounter. Patient reports that signs and symptoms h ave been present for 1 week and indicates a pain score of 0/10. MEDICAL/SURGICAL HISTORY: . Hypertension. Congestive heart failure. CVA. Left sided weakness. D ementia. Seizures. Arthritis. . Hysterectomy. Cervical fusion. Right hip replacement. COMPARISON: [facility] [place], CHEST 1V SINGLE AP, 01/02/2018. . FINDINGS: A single AP view of the chest demonstrates the lungs to be symmetrically aerated without evidence of mass, infiltrate or effusion. The heart size is enlarged but stable. There is a pacemaker overlying the left chest. The bony structures are stable. CONCLUSION: No focal or acute pulmonary infiltrates. No significant changes compared to the prior exam. Electronically signed by: Nasir Wilkinson MD 01/07/2018 9:06 AM EDT
[2018-01-07] MEDS: Insulin NovoLOG Aspart Correctional Sugar Inj SQ SCH ×4 (09:26→22:15)
[2018-01-07] MEDS: Carvedilol 6.25 MG Tablet G-TUBE SCH ×2 (09:27→22:24)
[2018-01-07] MEDS: Divalproex 125 MG Sprinkles Capsule G-TUBE SCH ×2 (09:28→22:13)
[2018-01-07] MEDS: Multivitamin/Minerals Therapeutic Tablet PO SCH (09:28)
[2018-01-07] MEDS: Polyethylene Glycol 3350 17 GM Packet G-TUBE SCH (09:29)
[2018-01-07] MEDS: Potassium Chloride 10 MEQ ER Capsule PO SCH (09:29)
[2018-01-07] MEDS: Modafinil 200 MG Tablet G-TUBE SCH (09:29)
[2018-01-07] MEDS: Furosemide 20 MG Tablet G-TUBE SCH (09:29)
[2018-01-07 09:30] LABS: Hematocrit 25.3 % (35.0-46.0); Hemoglobin 8.3 gm/dL (11.6-15.3); Mean Corpuscular Hemoglobin 31.4 pg (27.0-34.0); Mean Corpuscular Volume 95.1 fL (80.0-100.0); Mean Platelet Volume 9.2 fL (7.0-11.0); Platelet Count 190 th/mm3 (150-450); Red Blood Count 2.66 mil/mm3 (4.00-5.30); Red Cell Distribution Width 16.6 % (11.6-17.2); White Blood Count 10.6 th/mm3 (4.0-11.0)
[2018-01-07] MEDS: Phenytoin Sodium 100 MG Capsule G-TUBE SCH ×3 (09:30→22:19)
--- NOTE | 2018-01-07 09:52 | P.PNFP ---
Subjective Interval history: Patient seen and examined this morning. Overnight, it was reported that patient has a fever, axillary temp to 100.8F, and loose stools. Family, son and daughter, were at bedside. Pt did not respond to her name being called this morning and did not respond to painful stimuli. Family meeting was held at 8am. Family's questions were answered by our medical team, (Dr. Montgomery, Dr. Calabrese, and myself), nurse manager cardiac cath, floor daycare manager, and case management staff. Daughter (Kaci Koenig) and son (King Alexia) were in attendance in person. Two daughters were in attendance by phone (one of which was Anne SHAH). We explained Mrs. Baxter's initial presentation and the events following. The family was provided a copy of both head CT reports that were conducts during her stay. They explained their concerns about her bilateral UE edema, new onset diarrhea, inquired about the cause of her stroke, and asked for her overall prognosis and chances of recovery. 1900: Went with Dr. Calabrese to pt's room to update family about developments since this AM. They were not at bedside. <Kaia Davis G - 01/07/18 19:33> Results - Labs Result diagrams: 01/08/18 10:57 01/08/18 10:57 <Katherin Montgomery R - 01/08/18 12:31> Abnormal lab results 01/07/18 01/07/18 01/08/18 Range/Units 15:06 20:12 04:30 RBC (4.00-5.30) mil/mm3 Hgb (11.6-15.3) gm/dL Hct (35.0-46.0) % Sodium (136-145) meq/L Chloride (98-107) meq/L BUN (7-18) mg/dL POC Glucose 183 H (68-110) mg/dl Random Glucose (74-106) mg/dL Calcium (8.5-10.1) mg/dL Urine Clarity Cloudy H (Clear) Urine Protein 30 H (Neg-Trace) mg/dL Urine Occult Blood Moderate H (Negative) Urine Urobilinogen 2.0 H (Less than 2) mg/dL Ur Leukocyte Esterase Moderate H (Negative) Urine RBC 7 H (0-3) /hpf Urine WBC 57 H (0-5) /hpf Urine WBC Clumps Few H (None) Urine Bacteria Many H (None) /hpf Urine Mucus Few H (Occasional) /lpf Stl C.difficile Tox PCR Positive H (Negative) St C. diff Tox Epid 027 Positive H (Negative) 01/08/18 01/08/18 01/08/18 Range/Units 07:46 10:57 10:57 RBC 2.84 L (4.00-5.30) mil/mm3 Hgb 8.6 L (11.6-15.3) gm/dL Hct 26.6 L (35.0-46.0) % Sodium 147 H (136-145) meq/L Chloride 112 H (98-107) meq/L BUN 20 H (7-18) mg/dL POC Glucose 263 H (68-110) mg/dl Random Glucose 205 H D (74-106) mg/dL Calcium 8.0 L (8.5-10.1) mg/dL Urine Clarity (Clear) Urine Protein (Neg-Trace) mg/dL Urine Occult Blood (Negative) Urine Urobilinogen (Less than 2) mg/dL Ur Leukocyte Esterase (Negative) Urine RBC (0-3) /hpf Urine WBC (0-5) /hpf Urine WBC Clumps (None) Urine Bacteria (None) /hpf Urine Mucus (Occasional) /lpf Stl C.difficile Tox PCR (Negative) St C. diff Tox Epid 027 (Negative) 01/08/18 Range/Units 12:12 RBC (4.00-5.30) mil/mm3 Hgb (11.6-15.3) gm/dL Hct (35.0-46.0) % Sodium (136-145) meq/L Chloride (98-107) meq/L BUN (7-18) mg/dL POC Glucose 266 H (68-110) mg/dl Random Glucose (74-106) mg/dL Calcium (8.5-10.1) mg/dL Urine Clarity (Clear) Urine Protein (Neg-Trace) mg/dL Urine Occult Blood (Negative) Urine Urobilinogen (Less than 2) mg/dL Ur Leukocyte Esterase (Negative) Urine RBC (0-3) /hpf Urine WBC (0-5) /hpf Urine WBC Clumps (None) Urine Bacteria (None) /hpf Urine Mucus (Occasional) /lpf Stl C.difficile Tox PCR (Negative) St C. diff Tox Epid 027 (Negative) Short CBC 01/08/18 Range/Units 10:57 WBC 8.4 (4.0-11.0) th/mm3 Hgb 8.6 L (11.6-15.3) gm/dL Hct 26.6 L (35.0-46.0) % Plt Count 235 (150-450) th/mm3 BMP 01/08/18 10:57 Sodium 147 H Potassium 3.9 Chloride 112 H Carbon Dioxide 25.3 BUN 20 H Creatinine 0.53 Calcium 8.0 L Urine 01/07/18 Range/Units 15:06 Urine Color Sharee (Yellw/Straw) Urine Clarity Cloudy H (Clear) Urine pH 5.0 (5.0-8.5) Ur Specific [place] 1.016 (1.002-1.035) Urine Protein 30 H (Neg-Trace) mg/dL Urine Glucose (UA) Negative (Negative) mg/dL <Katherin Montgomery R - 01/08/18 12:31> Abnormal lab results 01/06/18 01/06/18 01/06/18 Range/Units 11:59 12:53 12:53 RBC 2.85 L (4.00-5.30) mil/mm3 Hgb 8.9 L (11.6-15.3) gm/dL Hct 27.2 L (35.0-46.0) % Creatinine 0.39 L (0.50-1.00) mg/dL POC Glucose 193 H (68-110) mg/dl Random Glucose 182 H (74-106) mg/dL Calcium 7.6 L (8.5-10.1) mg/dL 01/06/18 01/06/18 01/07/18 Range/Units 16:36 19:58 08:42 RBC 2.66 L (4.00-5.30) mil/mm3 Hgb 8.3 L (11.6-15.3) gm/dL Hct 25.3 L (35.0-46.0) % Creatinine (0.50-1.00) mg/dL POC Glucose 211 H 207 H (68-110) mg/dl Random Glucose (74-106) mg/dL Calcium (8.5-10.1) mg/dL Short CBC 01/06/18 01/07/18 Range/Units 12:53 08:42 WBC 6.5 10.6 D (4.0-11.0) th/mm3 Hgb 8.9 L 8.3 L (11.6-15.3) gm/dL Hct 27.2 L 25.3 L (35.0-46.0) % Plt Count 168 190 (150-450) th/mm3 BMP 01/06/18 12:53 Sodium 142 Potassium 4.2 Chloride 106 Carbon Dioxide 28.8 BUN 14 Creatinine 0.39 L Calcium 7.6 L <Kaia Davis - 01/07/18 09:52> - Imaging Impressions Chest X-Ray 01/07/18 00:00 CONCLUSION: No focal or acute pulmonary infiltrates. No significant changes compared to the prior exam. <Kaia Davis - 01/07/18 09:52> Physical Exam Vital signs: Vital Signs 01/07/18 16:00 01/07/18 20:00 01/08/18 00:00 Temperature 98.6 F 96.8 F L 97.3 F L Pulse Rate 76 80 69 Respiratory Rate 16 16 16 Blood Pressure 123/58 L 98/62 L 98/59 L Pulse Oximetry 93 L 95 93 L 01/08/18 04:00 01/08/18 08:00 Temperature 97.2 F L 98.6 F Pulse Rate 104 H 71 Respiratory Rate 17 Blood Pressure 102/59 L 142/60 H Pulse Oximetry 92 L 93 L Intake & Output 01/07/18 01/08/18 01/08/18 18:59 06:59 18:59 Intake Total 104 / 104 104 / 104 Balance 104 / 104 104 / 104 Intake: IV 104 / 104 104 / 104 Cerebyx Inj 200 MGPE In NS Inj 104 / 104 104 / 104 100 ML @ 208 mls/hr IV.SIG Q12HR [facility] Rx#:[id number] Other: Date of Last Bowel Movement 01/05/18 01/07/18 01/07/18 <Katherin Montgomery R - 01/08/18 12:31> Vital Signs 01/06/18 11:37 01/06/18 11:49 01/06/18 16:00 Temperature 99.8 F H 98.8 F Pulse Rate 75 72 Respiratory Rate 20 20 Blood Pressure 120/62 121/75 Pulse Oximetry 98 93 L 01/06/18 21:40 01/07/18 01:00 01/07/18 06:30 Temperature 98.8 F 100.8 F H 100 F H Pulse Rate 74 76 77 Respiratory Rate 23 21 Blood Pressure 99/50 L 96/56 L 95/54 L Pulse Oximetry 100 100 100 01/07/18 08:00 Temperature 100.7 F H Pulse Rate 93 H Respiratory Rate 16 Blood Pressure 127/62 Pulse Oximetry 92 L Intake & Output 01/06/18 01/07/18 01/07/18 18:59 06:59 18:59 Intake Total 2371 / 2371 1000 / 1000 Output Total 600 / 600 600 / 600 Balance 1771 / 1771 400 / 400 Weight 54 kg Intake: IV 1104 / 1104 1000 / 1000 Cerebyx Inj 200 MGPE In NS Inj 104 / 104 100 ML @ 208 mls/hr IV.SIG Q12HR [facility] Rx#:[id number] NS Inj 1,000 ML @ 88 mls/hr IV. 1000 / 1000 1000 / 1000 SIG .[id number] [facility] Rx#:[id number] Oral 0 / 0 0 / 0 Tube Feeding 500 / 500 Tube Irrigant 120 / 120 Water Bolus Amount 300 / 300 Other 347 / 347 Output: Urine 600 / 600 600 / 600 Other: # Voids 1 # Incontinent Voids 1 6 Date of Last Bowel Movement 01/05/18 # Bowel Movements 2 # Incontinent Bowel Movements 2 6 <Kaia Davis - 01/07/18 09:52> Narrative: GENERAL: Frail, elderly female lying in bed sleeping, unable to be aroused, not in acute distress. SKIN: Cool and dry. HEENT: Atraumatic, normocephalic. No rhinorrhea. No visible lymphadenopathy or JVD appreciated. CARDIOVASCULAR: Irregular rate and irregular rhythm without obvious murmurs, gallops or rubs. 2+ pulses in all four extremities. RESPIRATORY: Clear to auscultation anteriorly without obvious CRW. No increased work of breathing. GASTROINTESTINAL: PEG tube in place without surrounding drainage, erythema, or warmth. Abdominal binder in place; abdominal binder clean and dry. Bowel sounds in all 4 quadrants. Patient appears to be nontender to palpation without obvious masses. MUSCULOSKELETAL: No cyanosis or edema. No calf tenderness. 2+ pitting edema of bilateral LEs to mid mancilla. No edema in UE's. NEURO/PSYCH: Full neurologic exam unable to be performed due to mental status at this time. <RyanKaia G - 01/07/18 11:07> Assessment and Plan - Assessment (1) UTI (urinary tract infection) Code(s): N39.0 - Urinary tract infection, site not specified Status: Acute (2) Diarrhea Code(s): R19.7 - Diarrhea, unspecified Status: Acute (3) Acute CVA (cerebrovascular accident) Code(s): I63.9 - Cerebral infarction, unspecified Status: Acute (4) Altered mental status, unspecified Code(s): R41.82 - Altered mental status, unspecified Status: Acute (5) Seizure Code(s): R56.9 - Unspecified convulsions Status: Acute (6) Poor nutrition Code(s): E63.9 - Nutritional deficiency, unspecified Status: Acute (7) Palliative care patient Code(s): Z51.5 - Encounter for palliative care Status: Acute (8) History of CVA (cerebrovascular accident) Code(s): Z86.73 - Personal history of transient ischemic attack (TIA), and cerebral infarction without residual deficits Status: Chronic (9) Pneumonia Code(s): J18.9 - Pneumonia, unspecified organism Status: Acute (10) GERD (gastroesophageal reflux disease) Code(s): K21.9 - Gastro-esophageal reflux disease without esophagitis Status: Chronic (11) Atrial fibrillation Code(s): I48.91 - Unspecified atrial fibrillation Status: Chronic (12) CHF (congestive heart failure) Code(s): I50.9 - Heart failure, unspecified Status: Chronic (13) Hypertension Code(s): I10 - Essential (primary) hypertension Status: Chronic (14) Constipation Code(s): K59.00 - Constipation, unspecified Status: Acute (15) Nutrition, metabolism, and development symptoms Code(s): R63.8 - Other symptoms and signs concerning food and fluid intake Status: Acute (16) DVT prophylaxis Status: Acute <Katherin Montgomery - 01/08/18 12:31> (1) UTI (urinary tract infection) Code(s): N39.0 - Urinary tract infection, site not specified Status: Acute Plan: Pt spiked a low grade fever of 100.8F per axillary reading last night. UA shows moderate blood, moderate leukocyte esterase, and many bacteria -Urine cx pending -Will start Rocephin 1g IV qD (01/07- ) (2) Diarrhea Code(s): R19.7 - Diarrhea, unspecified Status: Acute Plan: Nursing staff and night team report that pt had at least 8 bowel movements overnight. May be hospital acquired c diff vs laxatives vs tube feeds -Family requests rectal tube. Will oblige. -C diff pending (3) Acute CVA (cerebrovascular accident) Code(s): I63.9 - Cerebral infarction, unspecified Status: Acute Plan: Patient with new ischemic infarct, while on anticoagulation. Patient difficult to arouse on 01/03, during rounds. Initial change noted overnight on 01/02. Ordered stat Head CT w/o contrast (due to patient ineligible for MRI due to pacemaker) 1. New large nonhemorrhagic infarct involving the right MCA territory 2. 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 Informed Neurology of the change and results of CT -Aspirin at this time reinitiate anticoagulant 7-14 days after repeat CAT scan is performed and is negative for any intracranial hemorrhagic transformation. This should be done if family pursues continued aggressive medical care (4) Altered mental status, unspecified Code(s): R41.82 - Altered mental status, unspecified Status: Acute Plan: On admission, patient presents with altered mental status, following witnessed seizure activity. Per EMS, GCS 3. Versed given en-route to hospital. Keppra given in ED. Patient with history of seizure disorder. Treated with Keppra. Patient with history of CVA x2. Residual left sided weakness. Patient believed to be at new baseline Orders: * Telemetry. * Neuro Check q4hrs. * Vital Checks q4hrs. * Seizure Precautions. Consults: * Neurology: Repeat EEG: negative for seizure activity. Continue depakote/ dilantin. * PT/OT when patient is able to comply. PT recommends PT at rehab if patient shows rehab potential. OT recommends OT at rehab. Medications: * Provigil 200mg PEG daily. * Dilantin 130mg PEG BID. * Dilantin 100mg PEG @1300. * Divalproex Sprinkles 500mg PEG BID (5) Seizure Code(s): R56.9 - Unspecified convulsions Status: Acute Plan: Patient with history of seizure disorder. Witnessed seizure at senior care in a.m. day of admission. * See Plan above. (6) Poor nutrition Code(s): E63.9 - Nutritional deficiency, unspecified Status: Acute Plan: Patient with poor nutritional status. Tube feeds started 12/22. Tube feeds held 12/23 due to suspicion for refeeding syndrome. Phosphorus normalized 12/25. Tube feeds restarted 12/25. Jevita 1.5 started at 10/ml/hr, now at goal of 50 ml /hr. Patient receives 150ml of free water flushes q4hr. PEG tube feeds started 12/31 and patient tolerating well with stable electrolytes Consults: * GI: PEG tube placement 12/31 without complications, signed off on 12/31 * Cardiology: Moderate risk for PEG, unable to further decrease risk, can proceed. Anticoagulation restarted on 12/31 after PEG placement (7) Palliative care patient Code(s): Z51.5 - Encounter for palliative care Status: Acute Plan: Palliative care consulted to assist with goals of care. The palliative team received a phone call from the patient's daughter (Sammi Koenig) who is also the [facility] decision-maker.She tells them that she is a nurse in the intensive care unit; she feels it is too early in the patient's hospitalization to make any changes in the medical treatment goals. She indicates that she is busy person and has been speaking to her mother's nurses and physicians regularly. She does not wish to receive phone calls from Palliative Care at this time but has their contact information if she should have questions or concerns. (8) History of CVA (cerebrovascular accident) Code(s): Z86.73 - Personal history of transient ischemic attack (TIA), and cerebral infarction without residual deficits Status: Chronic Plan: Patient with history of CVA x2. On admission, patient with altered mental status. Last known normal: Day prior to admission. Medications: * Continue home Atorvastatin and Eliquis Consults: * Neurology: CT stable. On anticoagulation. (9) Pneumonia Code(s): J18.9 - Pneumonia, unspecified organism Status: Acute Plan: Patient with recent history of "pneumonia" per medication review. Patient with cough on exam. Admission Labs: * WBC 5.1. Imaging: * CXR 6/16: Stable enlargement of the cardiac silhouette. Otherwise, no acute abnormality is identified. Medications: * Continue home Duoneb and Prednisone. * Robitussin 10 mL q4hr PO PRN Cough. * Tessalon 200mg q8hr PO PRN Cough. (10) GERD (gastroesophageal reflux disease) Code(s): K21.9 - Gastro-esophageal reflux disease without esophagitis Status: Chronic Plan: Patient with history of GERD. Medications: * Pantoprazole IV. (11) Atrial fibrillation Code(s): I48.91 - Unspecified atrial fibrillation Status: Chronic Plan: Patient with history of A. fib. Patient with irregular irregular rhythm on exam. Medications: * Continue home Eliquis Consults: * Cardiology: Ms. Baxter appears to have atrial fibrillation and has had it for some time. Overall, her heart rate seemed mostly controlled and we will continue her on her Carvedilol 3.125 mg b.i.d. As far as her atrial fibrillation goes, she has been anticoagulated with Eliquis 2.5 mg b.i.d. ( lower dose use due to her age and weight). Per note from the family practice team, her daughter states that she is nonwalking and so I feel that it is reasonable to keep her on anticoagulation as her chances of falling are less. She does have a minimally elevated troponin, but this is negligible at this time and would not consider further workup and this is most likely due to the overall seizure state. Would not consider further workup at this time. She does have a history of 2 previous strokes and would to continue her on her Eliquis for such as Neurology had suggested. Further recommendations will be made based on the hospital course. (12) CHF (congestive heart failure) Code(s): I50.9 - Heart failure, unspecified Status: Chronic Plan: Patient with history of congestive heart failure. Caution IVF. Medications: * Continue home Lasix and Coreg. (13) Hypertension Code(s): I10 - Essential (primary) hypertension Status: Chronic Plan: Patient with history of hypertension. Per neurology, goal less than 120/80. Medications: * Continue home Coreg. (14) Constipation Code(s): K59.00 - Constipation, unspecified Status: Acute Plan: Patient with history of constipation. Medications: * Continue home Colace and Miralax. (15) Nutrition, metabolism, and development symptoms Code(s): R63.8 - Other symptoms and signs concerning food and fluid intake Status: Acute Plan: Fluid: * Free fluid flush with tube feeds. Electrolyte: * Monitor and replete as necessary. Nutrition: * PEG tube feeds as tolerated (16) DVT prophylaxis Status: Acute Plan: Prophylaxis: * SCDs. <Kaia Davis - 01/07/18 19:21> - Assessment and Plan Patient is an 87 year old female who presents to the [place] ED via EMS following a witnessed seizure. Patient with history of seizure disorder. Patient given Versed en-route to hospital and Keppra bolus in ED. Patient's GCS 8 at time of admission encounter. Patient admitted for evaluation and management of seizure versus CVA. <Kaia Davis - 01/07/18 09:52> Discharge Planning: Pending placement CM consulted to assist <Kaia Davis - 01/07/18 09:52> - Attending Attestation The exam, history, and the medical decision-making described in the above note were completed with the assistance of the resident physician. I reviewed and agree with the findings presented. I attest that I had a [id number] encounter with the patient on the same day, and personally performed and documented my assessment and findings in the medical record. <Katherin Montgomery - 01/08/18 12:31> <Kaia Davis G - Last Filed: 01/07/18 19:21> (2) Diarrhea Qualifiers: Diarrhea type: unspecified type Qualified Code(s): R19.7 - Diarrhea, unspecified (4) Altered mental status, unspecified Qualifiers: Altered mental status type: unspecified Qualified Code(s): R41.82 - Altered mental status, unspecified (9) Pneumonia Qualifiers: Pneumonia type: due to unspecified organism Laterality: unspecified laterality Lung location: unspecified part of lung Qualified Code(s): J18.9 - Pneumonia, unspecified organism <Simonvictor mKatherin R - Last Filed: 01/08/18 12:31> (2) Diarrhea Qualifiers: Diarrhea type: unspecified type Qualified Code(s): R19.7 - Diarrhea, unspecified (4) Altered mental status, unspecified Qualifiers: Altered mental status type: unspecified Qualified Code(s): R41.82 - Altered mental status, unspecified (9) Pneumonia Qualifiers: Pneumonia type: due to unspecified organism Laterality: unspecified laterality Lung location: unspecified part of lung Qualified Code(s): J18.9 - Pneumonia, unspecified organism <Kaia Davis G - Last Filed: 01/07/18 19:21> (2) Diarrhea Qualifiers: Diarrhea type: unspecified type Qualified Code(s): R19.7 - Diarrhea, unspecified (4) Altered mental status, unspecified Qualifiers: Altered mental status type: unspecified Qualified Code(s): R41.82 - Altered mental status, unspecified (9) Pneumonia Qualifiers: Pneumonia type: due to unspecified organism Laterality: unspecified laterality Lung location: unspecified part of lung Qualified Code(s): J18.9 - Pneumonia, unspecified organism <Simonvictor mKatherin R - Last Filed: 01/08/18 12:31> (2) Diarrhea Qualifiers: Diarrhea type: unspecified type Qualified Code(s): R19.7 - Diarrhea, unspecified (4) Altered mental status, unspecified Qualifiers: Altered mental status type: unspecified Qualified Code(s): R41.82 - Altered mental status, unspecified (9) Pneumonia Qualifiers: Pneumonia type: due to unspecified organism Laterality: unspecified laterality Lung location: unspecified part of lung Qualified Code(s): J18.9 - Pneumonia, unspecified organism
[2018-01-07 09:55] LABS: Anion Gap 9 meq/L (5-15); Blood Urea Nitrogen 16 mg/dL (7-18); Calcium 8.1 mg/dL (8.5-10.1); Carbon Dioxide 26.9 meq/L (21.0-32.0); Chloride 109 meq/L (98-107); Glomerular Filtration Rate Greater Than 89 mL/min (>89); Glucose,Random 86 mg/dL (74-106); Potassium 4.1 meq/L (3.5-5.1); Sodium 145 meq/L (136-145)
[2018-01-07] MEDS: FOSPHENYTOIN IV.SIG SCH ×2 (10:01→22:02)
[2018-01-07] MEDS: SODIUM CHLOR IV.SIG SCH ×2 (10:01→22:02)
[2018-01-07 10:05] LABS: Lymphocytes 12 % (9-44); Monocytes 15 % (0-8); Platelet Estimate Normal (Normal); Platelet Morphology Normal (Normal)
[2018-01-07 10:06] LABS: Acanthocytes Occ; Ovalocytes 1+
--- NOTE | 2018-01-07 11:10 | P.PNPAL ---
Palliative care continues to follow along with Ms. Baxter. No family contact today. Family has repeatedly asked for palliative care to not contact them; they will contact palliative care when they desire to talk. In review of notes a meeting took place this morning with case management, MD residents, and family to discuss discharge plans/options. Palliative care spoke with case management and they report family continues to desire Ms. Baxter to be transferred to a facility in [place] and will not allow patient to be sent back to previous facility. Case management continues to work with family on options. Palliative care will continue to be available as needed to assist with communication when and if family is receptive.
[2018-01-07] MEDS: Pantoprazole Inj 40 MG Vial IV.PUSH SCH (11:48)
--- NOTE | 2018-01-07 12:41 | P.PNWCN ---
Wound Care Nurse Consult Description: Consult for sacral ulcer per Kaia Davis on 01/07/18 @1007. Communicated with: OCHOA Gonzalez RN Paged Kaia Davis Recommendation: 1. Gently cleanse Sacral Stage 4 pressure injury with NS and gauze, pat dry. 2. Apply Maxorb II over open wound. 3. Apply skin barrier film (Cavilon spray) to periwound DTI and let dry. 4. Cover and secure Maxorb II primary dressing with bordered gauze and date. REMOVE DRESSING USING ADHESIVE REMOVER Q3D AND PRN FOR SATURATION OR DISLODGEMENT Additional information: Patient seen by song writer on 01/07/18 for wound evaluation of sacrum. Patient tube feed on hold when entering room for assessment with OCHOA Munoz. Patient head of bed lowered, pillow removed from left side of patient, and then repositioned pt to her right side. Let it be noted that patient was found to be lying on 2 cotton underpads stacked on top of each other, 2 ultrasorbs staggered, with another ultrasorb underneath her buttocks and tucked in between her thighs and brought up to her pubic bone, totaling 5 layers. A foam adhesive dressing was removed from her sacrum to reveal an area measuring 7cm x 9cm of purple friable non blanching discoloration indicating a DEEP TISSUE INJURY that has opened up in the center exposing ~50% dull white tissue, ~30% red dull non granulating tissue, and~20% dark purple/black tissue with denuded periwound that meets the DTI. The DEEP TISSUE INJURY was skin prepped x2 with Cavilon spray and allowed to dry before gently cleansing the open area measuring ~3cm x ~2.5cm x ~0.2cm. Maxorb II was applied to open shallow Stage 4 moist wound bed with no active drainage and no odor. Bordered gauze dressing was used to secure. Recommend to leave dressing in place for 3 days unless soiled or dislodged. OCHOA Gonzalez and OCHOA Munoz in room during assessment and aware of recommendations for strict 2 hour turns, low air loss mattress, 1 ultrasorb underpad only to be used with specialty mattress being ordered by song writer, and dressing for sacrum. Wound/Pressure Injury - Wound Right Buttocks Wound Staging: Stage IV Wound Type: Pressure Injury Length: 7 (cm) Width: 9 (cm) Depth: 0.2 (cm) Wound Bed Appearance: Purple non blanching discoloration opening to full thickness skin loss with white and dark purple/black tissue Drainage Amount: None Drainage Odor: No Odor Dressing Status: Changed (Foam dressing removed (contraindicated for DTI) NEW DRESSING PLACED BY CARBIDE OPERATOR) Cleansing Solution: Saline Primary Dressing: Maxorb II ([place]) Cover Dressinx4 Bordered Gauze Wound Dressing Change Date: 01/10/18 Wound Margin Description: Denuded (peeling)
--- NOTE | 2018-01-07 13:52 | P.PNADD ---
Addendum to Inpatient Note Reason for Addendum: Additional Documentation Additional information: Patients was seen and examined with the resident team. Overnight report of severe watery diarrhea and also increase in swelling in her legs and arms. The family is now present and at the bedside. The daughter came in from [place] overnight. Report of elevated Temperature to 100.8 axillary overnight. Exam: Vital Signs Temp Pulse Resp BP Pulse Ox 01/07/18 11:54 98.1 F 80 16 114/56 L 93 L 01/07/18 08:00 100.7 F H 93 H 15 127/62 92 L 01/07/18 06:30 100 F H 77 95/54 L 100 01/07/18 01:00 100.8 F H 76 21 96/56 L 100 01/06/18 21:40 98.8 F 74 23 99/50 L 100 01/06/18 16:00 98.8 F 72 20 121/75 93 L Intake and Output 01/06/18 01/07/18 01/07/18 22:59 06:59 14:59 Intake Total 2371 / 2371 0 / 0 Output Total 600 / 600 600 / 600 Balance 1771 / 1771 -600 / -600 Intake: IV 1104 / 1104 Cerebyx Inj 200 MGPE In NS Inj 104 / 104 100 ML @ 208 mls/hr IV.SIG Q12HR CARMEN Rx#:[id number] NS Inj 1,000 ML @ 88 mls/hr IV. 1000 / 1000 SIG .[id number] CARMEN Rx#:[id number] Oral 0 / 0 0 / 0 Tube Feeding 500 / 500 Tube Irrigant 120 / 120 Water Bolus Amount 300 / 300 Other 347 / 347 Output: Urine 600 / 600 600 / 600 Other: # Voids 1 # Incontinent Voids 1 6 Date of Last Bowel Movement 01/05/18 01/05/18 # Bowel Movements 2 # Incontinent Bowel Movements 2 6 Weight 54 kg Impressions Chest X-Ray 01/07/18 00:00 CONCLUSION: No focal or acute pulmonary infiltrates. No significant changes compared to the prior exam. GENERAL: Patient is nonresponsive except to deep stimuli. Will not open her eyes. Does not respond to commands. SKIN: Warm and dry on the extremities and abdomen, skin around the Peg tube appears clean and intacts HEENT: patient will not open eyes, mouth is dry, NO JVD CARDIOVASCULAR: irr, irr RESPIRATORY: No accessory muscle use. Clear to auscultation. Breath sounds equal bilaterally GASTROINTESTINAL: Abdomen soft, non-tender, nondistended. Hepatic and splenic margins not palpable. Peg tube in place MUSCULOSKELETAL: Patient with edema in all 4 extremities. Family discussion and meeting was held today with nursing, case management and our medical team. Patients daughter and son present and two other daughters were on the phone via conference call. YVON the family the patients medical course throughout the hospital stay. DW the family that we are aware that prior to her hospitalization the patient was verbal, able to feed herself, sitting in a chair, etc., she has not returned to this state throughout the duration of the hospital stay. She has rebounded some from her initial GCS of 3 in the field. DW family that it appears to our best understanding that the inciting event leading to admission was likely a CVA with seizure that was not evident on the initial CT scan. Since patient has hardware in her heart we were unable to do an MRI on admission to confirm this. Since her admission she has had some good days where she was able to speak and respond but not much more and them some bad days where she could not or would not respond to anything except painful stimuli. As of this time she has worsened neurologically and our best medical opinion is that this is due to extension of the initial stroke that is now able to be seen on the repeat CT scan that was done a few days ago. DW family that due to the large nature of this CVA and her clinical picture that we feel the likelihood of meaningful recovery is very small. The family wants to know if we can say with 100% certainty that the CVA was present on admission and DW family that since we could not get that MRI we cannot say with 100% certainty but in our medical judgment based on the clinical course of the patient, I do feel like the course laid out as above is what happened. All questions we answered from all family members. From my perspective there is not much medically that we can do. We are working up an elevated temp and diarrhea in this patient. Once that has stabilized dw family that she may be ready to transfer to a LTC facility at that time. Family is working with case management to set up medical transport to [place] and care in LTC facility in [place]. Time spent in face to face time with patient or family over 1.5 hours.
[2018-01-07 16:39] LABS: Bacteria,Urine Many /hpf; Bilirubin,Urine Negative (Negative); Clarity,Urine Cloudy (Clear); Color,Urine Amber (Yellw/Straw); Glucose,Urine (UA) Negative (Negative); Leukocyte Esterase,Urine Moderate (Negative); Mucus,Urine Few /lpf (Occasional); Nitrite,Urine Negative (Negative); Specific Gravity,Urine 1.016 (1.002-1.035); Squamous Epithelial Cell,Urine 2 /hpf (0-5)
--- NOTE | 2018-01-07 16:59 | P.DIET ---
Nutritional Evaluation Type of nutrition evaluation: follow-up Nutrition consult regarding: Tube Feeding Nutrition screening: MDC (Pt on TF now with severe diarrhea) Objective - Diagnosis Seizures, AMS. PMH see H&P - Objective % IBW: 88 Body Weight Used for Calculations: Actual Energy Needs - Lower Range (kCal/kg): 33 Energy Needs - Upper Range (kCal/kg): 38 Lower Limit kCal/kg (kCals): 1,584 Upper Limit kCal/kg (kCals): 1,824 Lower Limit Protein Factor (Grams per Kg): 1.2 Upper Limit Protein Factor (Grams per Kg): 1.5 Lower Protein Needs (Protein): 58 Upper Protein Needs (Protein): 72 Dietitian Reviewed in Medical Record: Current diet, Curent medications, Intake & Output, Labs, Tube feeding Diet Order: NONE Wound Care Note: see WOCN dated 01/07. Indicates sacral stage 4 Pressure Injury Assessment Assessment: MDC for diarrhea acknowledged. states "likely from other causes" and I would agree. Pt has been tolerating Jevity 1.5 @ 50 mls/hr. Pt. continues to receive Dilantin BID requiring TFing to be turned off for 4 hours. Recommend Jevity 1.5 @ goal rate of 60mls/hr over 20 hours. Jevity 1.5 has fiber, which has a bulking effect on stool, which would make it the best choice for diarrhea. If a different Formula is still desired, would recommend a trial of Vital 1.5. Recommendations: Recommend Jevity 1.5 @ goal rate of 60mls/hr over 20 hours d/t Dilantin If another formula is still desired: recommend trial of Vital 1.5 Dietitian to Monitor: Lab values, Glucose level, Tube feeding tolerance, Weight change, Medical course
--- NOTE | 2018-01-07 18:24 | P.PNNEU ---
Subjective Subjective Comments: No acute events reported No new sx. Active Medications: Active Medications Generic Name Dose Route Start Last Admin Trade Name Freq PRN Reason Stop Dose Admin Albuterol 1 ampul 01/02/18 00:01 Duoneb Neb (Prn) INH Q6HR NEB PRN SOB/WHEEZING Aspirin 325 mg 01/05/18 09:00 01/07/18 09:28 Ecotrin PO 325 mg DAILY CARMEN Administration Atorvastatin Calcium 20 mg 01/02/18 21:00 01/06/18 22:09 Lipitor G-TUBE 20 mg HS CARMEN Administration Benzonatate 200 mg 01/02/18 00:01 Tessalon Perles PO Q8H PRN COUGH Carvedilol 6.25 mg 01/02/18 09:00 01/07/18 09:27 Coreg G-TUBE 6.25 mg Q12HR CARMEN Administration Clonidine HCl 0.1 mg 01/02/18 00:01 Catapres PO Q6H PRN SBP>180, DBP>110 Dextrose 50 ml 01/02/18 00:01 D50w Vial IV.PUSH UNSCH PRN HYPOGLYCEMIA-SEE COMMENTS Divalproex Sodium 500 mg 01/02/18 09:00 01/07/18 09:28 Depakote Sprinkles G-TUBE 500 mg BID CARMEN Administration Enalaprilat 1.25 mg 01/03/18 11:56 Vasotec Inj IV.PUSH Q4H PRN For SBP > 220 or DBP > 120 Enalaprilat 1.25 mg 01/02/18 00:01 Vasotec Inj IV.PUSH Q6H PRN SBP>160, DBP>90 Furosemide 20 mg 01/02/18 09:00 01/07/18 09:29 Lasix G-TUBE 20 mg DAILY CARMEN Administration Glucagon 1 mg 01/02/18 00:01 Glucagon Inj OTHER UNSCH PRN for Hypoglycemia Protocol Guaifenesin/Dextromethorphan 10 ml 01/02/18 00:01 Robitussin Dm 200/20 Mg/10 Ml Liq PO Q4H PRN COUGH Fosphenytoin Sodium 200 mgpe/ 104 mls @ 208 mls/hr 01/04/18 09:00 01/07/18 10 :01 Sodium Chloride IV.SIG 200 mls/hr Q12HR CARMEN Administration Insulin Aspart 0 unit 01/02/18 08:00 01/07/18 17:09 Novolog Insulin Suppl Scale Inj SQ Not Given ACHS [facility] Protocol Ketorolac Tromethamine 15 mg 01/02/18 00:01 Toradol Inj IM Q6H PRN PAIN SCALE 1 TO 10 Lorazepam 0.5 mg 01/02/18 00:01 Ativan Inj IV.PUSH HS PRN SLEEP Miscellaneous 1 each 01/02/18 00:01 Pill Splitter OTHER UNSCH PRN SEE LABEL COMMENTS Modafinil 200 mg 01/02/18 09:00 01/07/18 09:29 Provigil G-TUBE 200 mg DAILY CARMEN Administration Multivitamins/Minerals 1 tab 01/02/18 09:00 01/07/18 09:28 Theragran-M PO 1 tab DAILY CARMEN Administration Pantoprazole Sodium 40 mg 01/02/18 11:00 01/07/18 11:48 Protonix Inj IV.PUSH 40 mg Q24H CARMEN Administration Phenytoin Sodium 100 mg 01/02/18 09:00 01/07/18 09:30 Dilantin G-TUBE 100 mg BID CARMEN Administration Phenytoin Sodium 30 mg 01/02/18 09:00 01/07/18 09:28 Dilantin G-TUBE 30 mg BID CARMEN Administration Phenytoin Sodium 100 mg 01/02/18 13:00 01/07/18 12:25 Dilantin G-TUBE 100 mg DAILY@1300 CARMEN Administration Potassium Chloride 10 meq 01/02/18 09:00 01/07/18 09:29 Kcl PO 10 meq DAILY CARMEN Administration Sodium Chloride 2 ml 01/02/18 09:00 01/07/18 09:29 Ns Flush IV.FLUSH Not Given BID CARMEN Sodium Chloride 2 ml 01/02/18 00:01 Ns Flush IV.FLUSH UNSCH PRN FLUSH AFTER USING IV ACCESS Allergies/Adverse Reactions: Allergies Allergy/AdvReac Type Severity Reaction Status Date / Time acetaminophen Allergy Severe nausea and Verified 01/01/18 11:09 vomiting propoxyphene Allergy Severe nausea and Verified 01/01/18 11:09 vomiting MRI PRECAUTION Allergy Severe UNKNOWN Uncoded 01/01/18 11:09 Physical Exam Vital signs: Vital Signs 01/06/18 21:40 01/07/18 01:00 01/07/18 06:30 Temperature 98.8 F 100.8 F H 100 F H Pulse Rate 74 76 77 Respiratory Rate 23 21 Blood Pressure 99/50 L 96/56 L 95/54 L Pulse Oximetry 100 100 100 01/07/18 08:00 01/07/18 11:54 01/07/18 16:00 Temperature 100.7 F H 98.1 F 98.6 F Pulse Rate 93 H 80 76 Respiratory Rate 15 16 16 Blood Pressure 127/62 114/56 L 123/58 L Pulse Oximetry 92 L 93 L 93 L Intake & Output 01/06/18 01/07/18 01/07/18 18:59 06:59 18:59 Intake Total 2371 / 2371 1104 / 1104 Output Total 600 / 600 600 / 600 Balance 1771 / 1771 504 / 504 Weight 54 kg Intake: IV 1104 / 1104 1104 / 1104 Cerebyx Inj 200 MGPE In NS Inj 104 / 104 104 / 104 100 ML @ 208 mls/hr IV.SIG Q12HR [facility] Rx#:[id number] NS Inj 1,000 ML @ 88 mls/hr IV. 1000 / 1000 1000 / 1000 SIG .[id number] CARMEN Rx#:[id number] Oral 0 / 0 0 / 0 Tube Feeding 500 / 500 Tube Irrigant 120 / 120 Water Bolus Amount 300 / 300 Other 347 / 347 Output: Urine 600 / 600 600 / 600 Other: # Voids 1 # Incontinent Voids 1 6 Date of Last Bowel Movement 01/05/18 01/05/18 # Bowel Movements 2 # Incontinent Bowel Movements 2 6 - Constitutional no acute distress - Routine Extremities Exam Comments: pt has facial responses to tactile stimulation. Does not follow commands. Has groaning but does not verbalize CN--left facial weakness MOTOR--diminished tone LUE and LLE. Increase tone right Objective Laboratory Results - last 24 hr 01/06/18 01/07/18 01/07/18 19:58 07:52 08:42 WBC RBC Hgb Hct MCV MCH MCHC RDW Plt Count MPV Prelim Diff (Auto) WBC Differential Seg Neuts % (Manual) Band Neuts % (Manual) Lymphocytes % (Manual) Monocytes % (Manual) Abs Neuts (Manual) Differential Comment Platelet Estimate Platelet Morphology Ovalocytes Acanthocytes (Spur) Sodium 145 Potassium 4.1 Chloride 109 H Carbon Dioxide 26.9 Anion Gap 9 BUN 16 Creatinine 0.42 L Estimated GFR Greater than 89 POC Glucose 207 H 87 Random Glucose 86 Calcium 8.1 L B-Natriuretic Peptide Urine Color Urine Clarity Urine pH Ur Specific [place] Urine Protein Urine Glucose (UA) Urine Ketones Urine Occult Blood Urine Nitrate Urine Bilirubin Urine Urobilinogen Ur Leukocyte Esterase Urine RBC Urine WBC Urine WBC Clumps Ur Squamous Epith Cells Urine Bacteria Urine Mucus Urine Comment 01/07/18 01/07/18 01/07/18 08:42 08:42 12:21 WBC 10.6 D RBC 2.66 L Hgb 8.3 L Hct 25.3 L MCV 95.1 MCH 31.4 MCHC 33.0 RDW 16.6 Plt Count 190 MPV 9.2 Prelim Diff (Auto) Manual diff required WBC Differential Manual diff final Seg Neuts % (Manual) 54 Band Neuts % (Manual) 19 H Lymphocytes % (Manual) 12 Monocytes % (Manual) 15 H Abs Neuts (Manual) 7.7 Differential Comment . Platelet Estimate Normal Platelet Morphology Normal Ovalocytes 1+ H Acanthocytes (Spur) Occ H Sodium Potassium Chloride Carbon Dioxide Anion Gap BUN Creatinine Estimated GFR POC Glucose 108 Random Glucose Calcium B-Natriuretic Peptide 595 H Urine Color Urine Clarity Urine pH Ur Specific [place] Urine Protein Urine Glucose (UA) Urine Ketones Urine Occult Blood Urine Nitrate Urine Bilirubin Urine Urobilinogen Ur Leukocyte Esterase Urine RBC Urine WBC Urine WBC Clumps Ur Squamous Epith Cells Urine Bacteria Urine Mucus Urine Comment 01/07/18 01/07/18 15:06 16:58 WBC RBC Hgb Hct MCV MCH MCHC RDW Plt Count MPV Prelim Diff (Auto) WBC Differential Seg Neuts % (Manual) Band Neuts % (Manual) Lymphocytes % (Manual) Monocytes % (Manual) Abs Neuts (Manual) Differential Comment Platelet Estimate Platelet Morphology Ovalocytes Acanthocytes (Spur) Sodium Potassium Chloride Carbon Dioxide Anion Gap BUN Creatinine Estimated GFR POC Glucose 107 Random Glucose Calcium B-Natriuretic Peptide Urine Color Sharee Urine Clarity Cloudy H Urine pH 5.0 Ur Specific [place] 1.016 Urine Protein 30 H Urine Glucose (UA) Negative Urine Ketones Negative Urine Occult Blood Moderate H Urine Nitrate Negative Urine Bilirubin Negative Urine Urobilinogen 2.0 H Ur Leukocyte Esterase Moderate H Urine RBC 7 H Urine WBC 57 H Urine WBC Clumps Few H Ur Squamous Epith Cells 2 Urine Bacteria Many H Urine Mucus Few H Urine Comment Cath-culture ind Review/Management - Diagnosis (1) Acute right MCA stroke Code(s): I63.511 - Cerebral infarction due to unspecified occlusion or stenosis of right middle cerebral artery Status: Acute Current Visit: Yes (2) Chronic right arterial ischemic stroke, MCA (middle cerebral artery) Code(s): I69.30 - Unspecified sequelae of cerebral infarction Status: Acute Current Visit: Yes (3) Hypertension Code(s): I10 - Essential (primary) hypertension Status: Chronic Current Visit: Yes - Review/Management Plan: Will repeat CT tomorrow to follow up on cva Hold anticoagulation due to large size of stroke due to hemorrhagic risk
[2018-01-08] MEDS: Potassium Chloride 10 MEQ ER Capsule PO SCH (08:30)
[2018-01-08] MEDS: Carvedilol 6.25 MG Tablet G-TUBE SCH ×2 (08:30→21:17)
[2018-01-08] MEDS: Furosemide 20 MG Tablet G-TUBE SCH (08:30)
[2018-01-08] MEDS: Modafinil 200 MG Tablet G-TUBE SCH (08:30)
[2018-01-08] MEDS: Phenytoin Sodium 100 MG Capsule G-TUBE SCH ×3 (08:30→21:17)
[2018-01-08] MEDS: Divalproex 125 MG Sprinkles Capsule G-TUBE SCH ×2 (08:30→21:17)
[2018-01-08] MEDS: Multivitamin/Minerals Therapeutic Tablet PO SCH (08:30)
[2018-01-08] MEDS: FOSPHENYTOIN IV.SIG SCH ×2 (11:44→21:11)
[2018-01-08] MEDS: SODIUM CHLOR IV.SIG SCH ×2 (11:44→21:11)
[2018-01-08] MEDS: Insulin NovoLOG Aspart Correctional Sugar Inj SQ SCH ×4 (11:44→23:39)
[2018-01-08 12:03] LABS: Anion Gap 10 meq/L (5-15); Blood Urea Nitrogen 20 mg/dL (7-18); Carbon Dioxide 25.3 meq/L (21.0-32.0); Chloride 112 meq/L (98-107); Glomerular Filtration Rate Greater Than 89 mL/min (>89); Glucose,Random 205 mg/dL (74-106); Sodium 147 meq/L (136-145)
[2018-01-08 12:04] LABS: Potassium 3.9 meq/L (3.5-5.1)
[2018-01-08 12:10] LABS: Hematocrit 26.6 % (35.0-46.0); Hemoglobin 8.6 gm/dL (11.6-15.3); Mean Corpuscular HGB Conc 32.2 % (32.0-36.0); Mean Corpuscular Hemoglobin 30.2 pg (27.0-34.0); Mean Corpuscular Volume 93.8 fL (80.0-100.0); Mean Platelet Volume 8.9 fL (7.0-11.0); Platelet Count 235 th/mm3 (150-450); Red Blood Count 2.84 mil/mm3 (4.00-5.30); White Blood Count 8.4 th/mm3 (4.0-11.0)
--- NOTE | 2018-01-08 13:37 | P.PNFP ---
Subjective Interval history: Patient seen and examined this morning by medical team. Overnight patient remained afebrile with no acute events reported. Rectal tube in place with what appears to be continued loose stools. Clostridium difficile PCR was ordered yesterday which has resulted as positive. Urinalysis was also completed indicating possible UTI. Patient was started on oral vancomycin as well as probiotics for her C. difficile and started on ceftriaxone for urinary tract infection coverage. Due to her nonverbal status, patient is on interview or review of systems. Of note, medical team called patient's healthcare surrogate (Kaci Koenig at [phone]) as well as her son (Alexia Kahn at [phone]). However, both were unavailable. A message was left with each of them giving a brief medical plan. Both were also instructed to contact the hospital with further questions. Medical team will plan to continue to contact the patient's family daily. <Ananda Ribera H - 01/08/18 14:37> Results - Labs Result diagrams: 01/10/18 06:45 01/10/18 06:45 <Katherin Nicole - 01/10/18 15:49> Abnormal lab results 01/09/18 01/09/18 01/10/18 Range/Units 16:50 22:10 06:45 RBC 2.84 L (4.00-5.30) mil/mm3 Hgb 8.6 L (11.6-15.3) gm/dL Hct 26.9 L (35.0-46.0) % Sodium (136-145) meq/L Chloride (98-107) meq/L Creatinine (0.50-1.00) mg/dL POC Glucose 126 H 174 H (68-110) mg/dl Random Glucose (74-106) mg/dL Calcium (8.5-10.1) mg/dL B-Natriuretic Peptide (0-100) pg/mL 01/10/18 01/10/18 01/10/18 Range/Units 06:45 06:45 11:14 RBC (4.00-5.30) mil/mm3 Hgb (11.6-15.3) gm/dL Hct (35.0-46.0) % Sodium 148 H (136-145) meq/L Chloride 111 H (98-107) meq/L Creatinine 0.42 L (0.50-1.00) mg/dL POC Glucose 221 H (68-110) mg/dl Random Glucose 201 H (74-106) mg/dL Calcium 8.3 L (8.5-10.1) mg/dL B-Natriuretic Peptide 538 H (0-100) pg/mL 01/10/18 Range/Units 13:17 RBC (4.00-5.30) mil/mm3 Hgb (11.6-15.3) gm/dL Hct (35.0-46.0) % Sodium (136-145) meq/L Chloride (98-107) meq/L Creatinine (0.50-1.00) mg/dL POC Glucose 238 H (68-110) mg/dl Random Glucose (74-106) mg/dL Calcium (8.5-10.1) mg/dL B-Natriuretic Peptide (0-100) pg/mL Short CBC 01/10/18 Range/Units 06:45 WBC 5.2 (4.0-11.0) th/mm3 Hgb 8.6 L (11.6-15.3) gm/dL Hct 26.9 L (35.0-46.0) % Plt Count 273 (150-450) th/mm3 BMP 01/10/18 06:45 Sodium 148 H Potassium 4.1 Chloride 111 H Carbon Dioxide 29.0 BUN 18 Creatinine 0.42 L Calcium 8.3 L <Katherin Nicole R - 01/10/18 15:49> Abnormal lab results 01/07/18 01/07/18 01/08/18 Range/Units 15:06 20:12 04:30 RBC (4.00-5.30) mil/mm3 Hgb (11.6-15.3) gm/dL Hct (35.0-46.0) % Sodium (136-145) meq/L Chloride (98-107) meq/L BUN (7-18) mg/dL POC Glucose 183 H (68-110) mg/dl Random Glucose (74-106) mg/dL Calcium (8.5-10.1) mg/dL Urine Clarity Cloudy H (Clear) Urine Protein 30 H (Neg-Trace) mg/dL Urine Occult Blood Moderate H (Negative) Urine Urobilinogen 2.0 H (Less than 2) mg/dL Ur Leukocyte Esterase Moderate H (Negative) Urine RBC 7 H (0-3) /hpf Urine WBC 57 H (0-5) /hpf Urine WBC Clumps Few H (None) Urine Bacteria Many H (None) /hpf Urine Mucus Few H (Occasional) /lpf Stl C.difficile Tox PCR Positive H (Negative) St C. diff Tox Epid 027 Positive H (Negative) 01/08/18 01/08/18 01/08/18 Range/Units 07:46 10:57 10:57 RBC 2.84 L (4.00-5.30) mil/mm3 Hgb 8.6 L (11.6-15.3) gm/dL Hct 26.6 L (35.0-46.0) % Sodium 147 H (136-145) meq/L Chloride 112 H (98-107) meq/L BUN 20 H (7-18) mg/dL POC Glucose 263 H (68-110) mg/dl Random Glucose 205 H D (74-106) mg/dL Calcium 8.0 L (8.5-10.1) mg/dL Urine Clarity (Clear) Urine Protein (Neg-Trace) mg/dL Urine Occult Blood (Negative) Urine Urobilinogen (Less than 2) mg/dL Ur Leukocyte Esterase (Negative) Urine RBC (0-3) /hpf Urine WBC (0-5) /hpf Urine WBC Clumps (None) Urine Bacteria (None) /hpf Urine Mucus (Occasional) /lpf Stl C.difficile Tox PCR (Negative) St C. diff Tox Epid 027 (Negative) 01/08/18 Range/Units 12:12 RBC (4.00-5.30) mil/mm3 Hgb (11.6-15.3) gm/dL Hct (35.0-46.0) % Sodium (136-145) meq/L Chloride (98-107) meq/L BUN (7-18) mg/dL POC Glucose 266 H (68-110) mg/dl Random Glucose (74-106) mg/dL Calcium (8.5-10.1) mg/dL Urine Clarity (Clear) Urine Protein (Neg-Trace) mg/dL Urine Occult Blood (Negative) Urine Urobilinogen (Less than 2) mg/dL Ur Leukocyte Esterase (Negative) Urine RBC (0-3) /hpf Urine WBC (0-5) /hpf Urine WBC Clumps (None) Urine Bacteria (None) /hpf Urine Mucus (Occasional) /lpf Stl C.difficile Tox PCR (Negative) St C. diff Tox Epid 027 (Negative) Short CBC 01/08/18 Range/Units 10:57 WBC 8.4 (4.0-11.0) th/mm3 Hgb 8.6 L (11.6-15.3) gm/dL Hct 26.6 L (35.0-46.0) % Plt Count 235 (150-450) th/mm3 BMP 01/08/18 10:57 Sodium 147 H Potassium 3.9 Chloride 112 H Carbon Dioxide 25.3 BUN 20 H Creatinine 0.53 Calcium 8.0 L Urine 01/07/18 Range/Units 15:06 Urine Color [place] (Yellw/Straw) Urine Clarity Cloudy H (Clear) Urine pH 5.0 (5.0-8.5) Ur Specific [place] 1.016 (1.002-1.035) Urine Protein 30 H (Neg-Trace) mg/dL Urine Glucose (UA) Negative (Negative) mg/dL <Ananda Ribera H - 01/08/18 14:37> Physical Exam Vital signs: Vital Signs 01/09/18 20:00 01/10/18 00:00 01/10/18 04:00 Temperature 98.6 F 97.8 F 98.8 F Pulse Rate 72 79 74 Respiratory Rate 35 H 28 H 30 H Blood Pressure 111/85 119/75 139/68 Pulse Oximetry 93 L 93 L 92 L 01/10/18 08:00 01/10/18 12:00 Temperature 98.6 F 98.6 F Pulse Rate 98 H 80 Respiratory Rate 17 17 Blood Pressure 134/69 131/56 L Pulse Oximetry 99 97 Intake & Output 01/09/18 01/10/18 01/10/18 18:59 06:59 18:59 Intake Total 254 / 254 785 / 785 Output Total 750 / 750 900 / 900 Balance -496 / -496 -115 / -115 Weight 54 kg Intake: IV 104 / 104 204 / 204 Cerebyx Inj 200 MGPE In NS Inj 104 / 104 104 / 104 100 ML @ 208 mls/hr IV.SIG Q12HR [facility] Rx#:[id number] Rocephin Inj 1,000 MG In NS Inj 100 / 100 100 ML @ 200 mls/hr IV.SIG Q24H [facility] Rx#:[id number] Oral 0 / 0 Tube Feeding 150 / 150 481 / 481 Water Bolus Amount 100 / 100 Output: Urine 150 / 150 Stool 750 / 750 750 / 750 Other: # Incontinent Voids 3 Date of Last Bowel Movement 01/09/18 01/09/18 # Bowel Movements 2 # Incontinent Bowel Movements 6 <Katherin Nicole R - 01/10/18 15:49> Vital Signs 01/07/18 16:00 01/07/18 20:00 01/08/18 00:00 Temperature 98.6 F 96.8 F L 97.3 F L Pulse Rate 76 80 69 Respiratory Rate 16 16 16 Blood Pressure 123/58 L 98/62 L 98/59 L Pulse Oximetry 93 L 95 93 L 01/08/18 04:00 01/08/18 08:00 Temperature 97.2 F L 98.6 F Pulse Rate 104 H 71 Respiratory Rate 17 Blood Pressure 102/59 L 142/60 H Pulse Oximetry 92 L 93 L Intake & Output 01/07/18 01/08/18 01/08/18 18:59 06:59 18:59 Intake Total 104 / 104 104 / 104 Balance 104 / 104 104 / 104 Intake: IV 104 / 104 104 / 104 Cerebyx Inj 200 MGPE In NS Inj 104 / 104 104 / 104 100 ML @ 208 mls/hr IV.SIG Q12HR [facility] Rx#:[id number] Other: Date of Last Bowel Movement 01/05/18 01/07/18 01/07/18 <Ananda Ribera H - 01/08/18 14:37> Narrative: GENERAL: Frail appearing elderly woman lying nonresponsive except to deep stimuli. Patient will not open eyes upon verbal cues and does not follow commands. SKIN: Cool and dry on upper extremities, abdomen, and lower extremities. PEG tube appears clean and intact without skin breakdown or signs of infection. HEENT: Atraumatic, normocephalic. Patient unable to follow commands to examine eyes or mouth. No visible JVD or LAD appreciated. CARDIOVASCULAR: Irregular rate and rhythm without obvious murmurs, gallops, or rubs. 2+ pulses in all four extremities. RESPIRATORY: Clear to auscultation anteriorly. No obvious CRW. No increased work of breathing at this time. GASTROINTESTINAL: Abdomen soft, non-tender, nondistended with positive bowel sounds. No masses appreciated. PEG tube in place without signs of abnormalities with abdominal binder. MUSCULOSKELETAL: No cyanosis. No calf tenderness. Upper and lower extremity appears improved from prior exams. NEURO/PSYCH: AAO1. GCS 9 (E2V2M5) Patient unable to communicate which is her baseline. Full neurologic evaluation unable to be completed due to mental status. <Ananda Ribera - 01/08/18 14:37> Assessment and Plan - Assessment (1) UTI (urinary tract infection) Code(s): N39.0 - Urinary tract infection, site not specified Status: Acute (2) Clostridium difficile diarrhea Code(s): A04.72 - Enterocolitis due to Clostridium difficile, not specified as recurrent Status: Acute (3) Sacral pressure ulcer Code(s): L89.159 - Pressure ulcer of sacral region, unspecified stage Status: Acute (4) Acute CVA (cerebrovascular accident) Code(s): I63.9 - Cerebral infarction, unspecified Status: Acute (5) Altered mental status, unspecified Code(s): R41.82 - Altered mental status, unspecified Status: Acute (6) Seizure Code(s): R56.9 - Unspecified convulsions Status: Acute (7) Poor nutrition Code(s): E63.9 - Nutritional deficiency, unspecified Status: Acute (8) Palliative care patient Code(s): Z51.5 - Encounter for palliative care Status: Acute (9) History of CVA (cerebrovascular accident) Code(s): Z86.73 - Personal history of transient ischemic attack (TIA), and cerebral infarction without residual deficits Status: Chronic (10) Pneumonia Code(s): J18.9 - Pneumonia, unspecified organism Status: Acute (11) GERD (gastroesophageal reflux disease) Code(s): K21.9 - Gastro-esophageal reflux disease without esophagitis Status: Chronic (12) Atrial fibrillation Code(s): I48.91 - Unspecified atrial fibrillation Status: Chronic (13) CHF (congestive heart failure) Code(s): I50.9 - Heart failure, unspecified Status: Chronic (14) Hypertension Code(s): I10 - Essential (primary) hypertension Status: Chronic (15) Nutrition, metabolism, and development symptoms Code(s): R63.8 - Other symptoms and signs concerning food and fluid intake Status: Acute (16) DVT prophylaxis Status: Acute <Katherin Nicole R - 01/10/18 15:49> (1) UTI (urinary tract infection) Code(s): N39.0 - Urinary tract infection, site not specified Status: Acute Plan: Pt spiked a low grade fever of 100.8F on 01/07/18. UA shows moderate blood, moderate leukocyte esterase, and many bacteria -Blood cultures: Pending -Urine culture: Pending -Rocephin 1g IV qD (01/07- ) (2) Clostridium difficile diarrhea Code(s): A04.72 - Enterocolitis due to Clostridium difficile, not specified as recurrent Status: Acute Plan: Nursing staff reported up to 8 liquid bowel movements on 01/06/18. -Rectal tube in place without abnormality. [place] with what appears nonbloody, liquid stool. -Laxative/stool softeners held -C diff: Positive -Vancomycin per G-tube 125 mg 4 times daily per protocol -Lactobacillus 3 times daily to assist with gut rod (3) Sacral pressure ulcer Code(s): L89.159 - Pressure ulcer of sacral region, unspecified stage Status: Acute Plan: Patient found to have stage IV pressure ulcer of the sacrum -Nursing to rotate patient per protocol -Wound care consulted, appreciate recommendations (4) Acute CVA (cerebrovascular accident) Code(s): I63.9 - Cerebral infarction, unspecified Status: Acute Plan: Patient with new ischemic infarct, while on anticoagulation. Patient difficult to arouse on 01/03, during rounds. Initial change noted overnight on 01/02. Ordered stat Head CT w/o contrast (due to patient ineligible for MRI due to pacemaker) -New large nonhemorrhagic infarct involving the right MCA territory -Stable old infarct involving the left cerebellar hemisphere. Neurology consulted -Repeat CT ordered today -Daily Aspirin -Reinitiate anticoagulant 7-14 days after repeat CAT scan is performed and is negative for any intracranial hemorrhagic transformation. (5) Altered mental status, unspecified Code(s): R41.82 - Altered mental status, unspecified Status: Acute Plan: On admission, patient presents with altered mental status, following witnessed seizure activity. Per EMS, GCS 3. Versed given en-route to hospital. Keppra given in ED. Patient with history of seizure disorder. Treated with Keppra. Patient with history of CVA x2. Residual left sided weakness. Patient with new infarct while on anticoagulation which was likely the precipitating event of her seizure at admission and continued AMS Patient believed to be at new baseline Orders: * Telemetry. * Neuro Check q4hrs. * Vital Checks q4hrs. * Seizure Precautions. Consults: * Neurology: Repeat EEG: negative for seizure activity. Continue depakote/ dilantin. * PT/OT when patient is able to comply. PT recommends PT at rehab if patient shows rehab potential. OT recommends OT at rehab. Medications: * Provigil 200mg PEG daily. * Dilantin 130mg PEG BID. * Dilantin 100mg PEG @1300. * Divalproex Sprinkles 500mg PEG BID (6) Seizure Code(s): R56.9 - Unspecified convulsions Status: Acute Plan: Patient with history of seizure disorder. Witnessed seizure at residential in a.m. day of admission. * See Plan above. (7) Poor nutrition Code(s): E63.9 - Nutritional deficiency, unspecified Status: Acute Plan: Patient with poor nutritional status. Tube feeds started 12/22. Tube feeds held 12/23 due to suspicion for refeeding syndrome. Phosphorus normalized 12/25. Tube feeds restarted 12/25. Jevita 1.5 started at 10/ml/hr, now at goal of 50 ml /hr. Patient receives 150ml of free water flushes q4hr. PEG tube feeds started 12/31 and patient tolerating well with stable electrolytes Consults: * GI: PEG tube placement 12/31 without complications, signed off on 12/31 * Cardiology: Moderate risk for PEG, unable to further decrease risk, can proceed. Anticoagulation restarted on 12/31 after PEG placement * Dietary consulted: Recommend Jevity 1.5 at goal rate of 60 ml/hr over 20 hours with 100ml free water flushes Q4H as patient will receive additional free water flushes with medications (8) Palliative care patient Code(s): Z51.5 - Encounter for palliative care Status: Acute Plan: Palliative care consulted to assist with goals of care. Per family request, the family has repeatedly asked from the palliative care team to not contact them. Appreciate the palliative care team's assistance (9) History of CVA (cerebrovascular accident) Code(s): Z86.73 - Personal history of transient ischemic attack (TIA), and cerebral infarction without residual deficits Status: Chronic Plan: Patient with history of CVA x2. On admission, patient with altered mental status. Last known normal: Day prior to admission. -Please see plan as above (10) Pneumonia Code(s): J18.9 - Pneumonia, unspecified organism Status: Acute Plan: Patient with recent history of "pneumonia" per medication review. Patient with cough on exam. Admission Labs: * WBC 5.1. Imaging: * CXR 12/18: Stable enlargement of the cardiac silhouette. Otherwise, no acute abnormality is identified. * CXR 01/07: No focal or acute pulmonary infiltrates. NO significant changes compared to prior exam. * Medications: * Continue home Duoneb * Prednisone discontinued * Robitussin 10 mL q4hr PO PRN Cough. * Tessalon 200mg q8hr PO PRN Cough. (11) GERD (gastroesophageal reflux disease) Code(s): K21.9 - Gastro-esophageal reflux disease without esophagitis Status: Chronic Plan: Patient with history of GERD. Medications: * Pantoprazole IV. (12) Atrial fibrillation Code(s): I48.91 - Unspecified atrial fibrillation Status: Chronic Plan: Patient with history of A. fib. Patient with irregular irregular rhythm on exam. Cardiology consulted as above Medications: * Continue home Eliquis once cleared from Neurology post CVA * Continue carvedilol (13) CHF (congestive heart failure) Code(s): I50.9 - Heart failure, unspecified Status: Chronic Plan: Patient with history of congestive heart failure. Caution IVF. Medications: * Continue home Lasix and Coreg. (14) Hypertension Code(s): I10 - Essential (primary) hypertension Status: Chronic Plan: Patient with history of hypertension. Per neurology, goal less than 120/80. Medications: * Continue home Coreg. * Clonidine as needed for BP >180/110 (15) Nutrition, metabolism, and development symptoms Code(s): R63.8 - Other symptoms and signs concerning food and fluid intake Status: Acute Plan: Fluid: * Free water flushes Q4H and with medications Electrolyte: * Monitor and replete as necessary. Nutrition: * Tube feeds only with dietary consult. Free water flushes Q4H and with medications (16) DVT prophylaxis Status: Acute Plan: Prophylaxis: * SCDs. <Ananda Ribera H - 01/08/18 12:37> - Assessment and Plan Patient is an 87 year old female who presents to the [place] ED via EMS following a witnessed seizure. Patient with history of seizure disorder. Patient given Versed en-route to hospital and Keppra bolus in ED. Patient's GCS 8 at time of admission encounter. Patient admitted for evaluation and management of seizure versus CVA. <Ananda Ribera H - 01/08/18 14:37> - Attending Attestation The exam, history, and the medical decision-making described in the above note were completed with the assistance of the resident physician. I reviewed and agree with the findings presented. I attest that I had a [id number] encounter with the patient on the same day, and personally performed and documented my assessment and findings in the medical record. <Katherin Nicole R - 01/10/18 15:49> <Ananda Ribera H - Last Filed: 01/08/18 12:37> (3) Sacral pressure ulcer Qualifiers: Pressure ulcer stage: stage 4 Qualified Code(s): L89.154 - Pressure ulcer of sacral region, stage 4 (5) Altered mental status, unspecified Qualifiers: Altered mental status type: unspecified Qualified Code(s): R41.82 - Altered mental status, unspecified (10) Pneumonia Qualifiers: Pneumonia type: due to unspecified organism Laterality: unspecified laterality Lung location: unspecified part of lung Qualified Code(s): J18.9 - Pneumonia, unspecified organism <Katherin Nicole R - Last Filed: 01/10/18 15:49> (3) Sacral pressure ulcer Qualifiers: Pressure ulcer stage: stage 4 Qualified Code(s): L89.154 - Pressure ulcer of sacral region, stage 4 (5) Altered mental status, unspecified Qualifiers: Altered mental status type: unspecified Qualified Code(s): R41.82 - Altered mental status, unspecified (10) Pneumonia Qualifiers: Pneumonia type: due to unspecified organism Laterality: unspecified laterality Lung location: unspecified part of lung Qualified Code(s): J18.9 - Pneumonia, unspecified organism <Ananda Ribera H - Last Filed: 01/08/18 12:37> (3) Sacral pressure ulcer Qualifiers: Pressure ulcer stage: stage 4 Qualified Code(s): L89.154 - Pressure ulcer of sacral region, stage 4 (5) Altered mental status, unspecified Qualifiers: Altered mental status type: unspecified Qualified Code(s): R41.82 - Altered mental status, unspecified (10) Pneumonia Qualifiers: Pneumonia type: due to unspecified organism Laterality: unspecified laterality Lung location: unspecified part of lung Qualified Code(s): J18.9 - Pneumonia, unspecified organism <Katherin Nicole R - Last Filed: 01/10/18 15:49> (3) Sacral pressure ulcer Qualifiers: Pressure ulcer stage: stage 4 Qualified Code(s): L89.154 - Pressure ulcer of sacral region, stage 4 (5) Altered mental status, unspecified Qualifiers: Altered mental status type: unspecified Qualified Code(s): R41.82 - Altered mental status, unspecified (10) Pneumonia Qualifiers: Pneumonia type: due to unspecified organism Laterality: unspecified laterality Lung location: unspecified part of lung Qualified Code(s): J18.9 - Pneumonia, unspecified organism
[2018-01-08] MEDS: Pantoprazole Inj 40 MG Vial IV.PUSH SCH (14:55)
--- NOTE | 2018-01-08 17:44 | CT ---
EXAM DATE: 01/08/2018 5:34 PM EDT AGE/SEX: 87 years / Female INDICATIONS: Evaluate CVA CLINICAL DATA: This is the patient's initial encounter. Patient reports that signs and symptoms have been present for 1 day and indicates a pain score of Nonresponsive. MEDICAL/SURGICAL HISTORY: None. None. RADIATION DOSE: 44.65 CTDI (mGy) COMPARISON: [facility] [place], CT HEAD W/O CONTRAST, 01/03/2018. . TECHNIQUE: CT of the head without contrast. Using automated exposure control and adjustment of the mA and/or kV according to patient size, radiation dose was kept as low as reasonably achievable to ob tain optimal diagnostic quality images. DICOM format image data is available electronically for revi ew and comparison. FINDINGS: There is a large evolving infarct in the right MCA territory in the remote left cerebellar infarct. T here is a slight increase in mass effect and some effacement of the right lateral ventricle but no si gnificant midline shift. CONCLUSION: 1. Large evolving infarct on the right slight increase in swelling in effacement of the right latera l ventricle but without significant midline shift. Remote left cerebellar infarct. Electronically signed by: Thierry Espinoza MD 01/08/2018 5:42 PM EDT
--- NOTE | 2018-01-08 18:13 | P.PNNEU ---
Subjective Subjective Comments: No acute events reported Active Medications: Active Medications Generic Name Dose Route Start Last Admin Trade Name Freq PRN Reason Stop Dose Admin Albuterol 1 ampul 01/02/18 00:01 Duoneb Neb (Prn) INH Q6HR NEB PRN SOB/WHEEZING Aspirin 325 mg 01/05/18 09:00 01/08/18 11:47 Ecotrin PO Not Given DAILY CARMEN Atorvastatin Calcium 20 mg 01/02/18 21:00 01/07/18 22:20 Lipitor G-TUBE 20 mg HS CARMEN Administration Benzonatate 200 mg 01/02/18 00:01 Tessalon Perles PO Q8H PRN COUGH Carvedilol 6.25 mg 01/02/18 09:00 01/08/18 08:30 Coreg G-TUBE 6.25 mg Q12HR CARMEN Administration Clonidine HCl 0.1 mg 01/02/18 00:01 Catapres PO Q6H PRN SBP>180, DBP>110 Dextrose 50 ml 01/02/18 00:01 D50w Vial IV.PUSH UNSCH PRN HYPOGLYCEMIA-SEE COMMENTS Divalproex Sodium 500 mg 01/02/18 09:00 01/08/18 08:30 Depakote Sprinkles G-TUBE 500 mg BID CARMEN Administration Furosemide 20 mg 01/02/18 09:00 01/08/18 08:30 Lasix G-TUBE 20 mg DAILY CARMEN Administration Glucagon 1 mg 01/02/18 00:01 Glucagon Inj OTHER UNSCH PRN for Hypoglycemia Protocol Guaifenesin/Dextromethorphan 10 ml 01/02/18 00:01 Robitussin Dm 200/20 Mg/10 Ml Liq PO Q4H PRN COUGH Fosphenytoin Sodium 200 mgpe/ 104 mls @ 208 mls/hr 01/04/18 09:00 01/08/18 11 :44 Sodium Chloride IV.SIG 200 mls/hr Q12HR CARMEN Administration Ceftriaxone Sodium 1,000 mg/ 100 mls @ 200 mls/hr 01/07/18 20:00 01/07/18 22: 02 Sodium Chloride IV.SIG 200 mls/hr Q24H CARMEN Administration Insulin Aspart 0 unit 01/02/18 08:00 01/08/18 14:54 Novolog Insulin Suppl Scale Inj SQ 5 unit ACHS CARMEN Administration Protocol Lactobacillus Acidophilus 1 gm 01/08/18 14:00 01/08/18 17:44 Lactinex Pkt G-TUBE 1 gm TID CARMEN Administration Lorazepam 0.5 mg 01/02/18 00:01 Ativan Inj IV.PUSH HS PRN SLEEP Miscellaneous 1 each 01/02/18 00:01 Pill Splitter OTHER UNSCH PRN SEE LABEL COMMENTS Modafinil 200 mg 01/02/18 09:00 01/08/18 08:30 Provigil G-TUBE 200 mg DAILY CARMEN Administration Multivitamins/Minerals 1 tab 01/02/18 09:00 01/08/18 08:30 Theragran-M PO 1 tab DAILY CARMEN Administration Pantoprazole Sodium 40 mg 01/02/18 11:00 01/08/18 14:55 Protonix Inj IV.PUSH 40 mg Q24H CARMEN Administration Phenytoin Sodium 100 mg 01/02/18 09:00 01/08/18 08:30 Dilantin G-TUBE 100 mg BID CARMEN Administration Phenytoin Sodium 30 mg 01/02/18 09:00 01/08/18 08:30 Dilantin G-TUBE 30 mg BID CARMEN Administration Phenytoin Sodium 100 mg 01/02/18 13:00 01/08/18 14:56 Dilantin G-TUBE 100 mg DAILY@1300 CARMEN Administration Potassium Chloride 10 meq 01/02/18 09:00 01/08/18 08:30 Kcl PO 10 meq DAILY CARMEN Administration Sodium Chloride 2 ml 01/02/18 09:00 01/08/18 08:30 Ns Flush IV.FLUSH 2 ml BID CARMEN Administration Sodium Chloride 2 ml 01/02/18 00:01 01/07/18 22:19 Ns Flush IV.FLUSH 2 ml UNSCH PRN Administration FLUSH AFTER USING IV ACCESS Vancomycin HCl 125 mg 01/08/18 13:00 01/08/18 17:43 Vancomycin Po NG/OG 01/18/18 12:59 125 mg QID CARMEN Administration Allergies/Adverse Reactions: Allergies Allergy/AdvReac Type Severity Reaction Status Date / Time acetaminophen Allergy Severe nausea and Verified 01/01/18 11:09 vomiting propoxyphene Allergy Severe nausea and Verified 01/01/18 11:09 vomiting MRI PRECAUTION Allergy Severe UNKNOWN Uncoded 01/01/18 11:09 Physical Exam Vital signs: Vital Signs 01/07/18 20:00 01/08/18 00:00 01/08/18 04:00 Temperature 96.8 F L 97.3 F L 97.2 F L Pulse Rate 80 69 104 H Respiratory Rate 16 16 17 Blood Pressure 98/62 L 98/59 L 102/59 L Pulse Oximetry 95 93 L 92 L 01/08/18 08:00 01/08/18 09:00 01/08/18 12:00 Temperature 98.6 F 99 F Pulse Rate 71 84 103 H Respiratory Rate 18 Blood Pressure 142/60 H 141/56 H Pulse Oximetry 93 L 94 L 01/08/18 16:00 Temperature 98.2 F Pulse Rate 73 Respiratory Rate 18 Blood Pressure 119/62 Pulse Oximetry 97 Intake & Output 01/07/18 01/08/18 01/08/18 18:59 06:59 18:59 Intake Total 104 / 104 204 / 204 Output Total 150 / 150 Balance 104 / 104 54 / 54 Intake: IV 104 / 104 104 / 104 Cerebyx Inj 200 MGPE In NS Inj 104 / 104 104 / 104 100 ML @ 208 mls/hr IV.SIG Q12HR CARMEN Rx#:[id number] Water Bolus Amount 100 / 100 Output: Urine 150 / 150 Other: Date of Last Bowel Movement 01/05/18 01/07/18 01/07/18 Narrative: lethargic, arousable but not following commands Pupils 3 mm bilateral and reactive. mild left facial weakness MOTOR--diminished tone LUE and LLE with no spontaneous movement Objective Radiology Results: CT brain today shows large right MCA stroke with edema--overall stable but with slight increase edema. No hemorrhage Laboratory Results - last 24 hr 01/07/18 01/08/18 01/08/18 20:12 04:30 07:46 WBC RBC Hgb Hct MCV MCH MCHC RDW Plt Count MPV Hematology Comments Sodium Potassium Chloride Carbon Dioxide Anion Gap BUN Creatinine Estimated GFR POC Glucose 183 H 263 H Random Glucose Calcium Stl C.difficile Tox PCR Positive H St C. diff Tox Epid 027 Positive H 01/08/18 01/08/18 01/08/18 10:57 10:57 12:12 WBC 8.4 RBC 2.84 L Hgb 8.6 L Hct 26.6 L MCV 93.8 MCH 30.2 MCHC 32.2 RDW 17.0 Plt Count 235 MPV 8.9 Hematology Comments Sodium 147 H Potassium 3.9 Chloride 112 H Carbon Dioxide 25.3 Anion Gap 10 BUN 20 H Creatinine 0.53 Estimated GFR Greater than 89 POC Glucose 266 H Random Glucose 205 H D Calcium 8.0 L Stl C.difficile Tox PCR St C. diff Tox Epid 027 01/08/18 17:44 WBC RBC Hgb Hct MCV MCH MCHC RDW Plt Count MPV Hematology Comments Sodium Potassium Chloride Carbon Dioxide Anion Gap BUN Creatinine Estimated GFR POC Glucose 131 H Random Glucose Calcium Stl C.difficile Tox PCR St C. diff Tox Epid 027 Review/Management - Diagnosis (1) Acute right MCA stroke Code(s): I63.511 - Cerebral infarction due to unspecified occlusion or stenosis of right middle cerebral artery Status: Acute Current Visit: Yes (2) Chronic right arterial ischemic stroke, MCA (middle cerebral artery) Code(s): I69.30 - Unspecified sequelae of cerebral infarction Status: Acute Current Visit: Yes (3) Hypertension Code(s): I10 - Essential (primary) hypertension Status: Chronic Current Visit: Yes - Review/Management Plan: Hold anticoagulation due to large size of stroke due to hemorrhagic risk
[2018-01-08] MEDS: Sod Chloride 0.9% Inj 1,000 ML IV.SIG SCH (23:41)
[2018-01-09 07:59] LABS: Hematocrit 26.3 % (35.0-46.0); Hemoglobin 8.4 gm/dL (11.6-15.3); Mean Corpuscular HGB Conc 31.9 % (32.0-36.0); Mean Corpuscular Hemoglobin 30.3 pg (27.0-34.0); Mean Corpuscular Volume 94.8 fL (80.0-100.0); Mean Platelet Volume 7.8 fL (7.0-11.0); Platelet Count 246 th/mm3 (150-450); Red Blood Count 2.77 mil/mm3 (4.00-5.30); Red Cell Distribution Width 16.8 % (11.6-17.2); White Blood Count 6.3 th/mm3 (4.0-11.0)
[2018-01-09 08:14] LABS: Anion Gap 8 meq/L (5-15); Blood Urea Nitrogen 19 mg/dL (7-18); Calcium 8.1 mg/dL (8.5-10.1); Chloride 113 meq/L (98-107); Glomerular Filtration Rate Greater Than 89 mL/min (>89); Glucose,Random 269 mg/dL (74-106); Potassium 4.1 meq/L (3.5-5.1); Sodium 147 meq/L (136-145)
[2018-01-09] MEDS: Divalproex 125 MG Sprinkles Capsule G-TUBE SCH ×2 (08:24→22:32)
[2018-01-09] MEDS: Multivitamin/Minerals Therapeutic Tablet PO SCH (08:25)
[2018-01-09] MEDS: Modafinil 200 MG Tablet G-TUBE SCH (08:25)
[2018-01-09] MEDS: Insulin NovoLOG Aspart Correctional Sugar Inj SQ SCH ×4 (08:25→22:31)
[2018-01-09] MEDS: Carvedilol 6.25 MG Tablet G-TUBE SCH ×2 (08:25→22:32)
[2018-01-09] MEDS: FOSPHENYTOIN IV.SIG SCH ×2 (08:27→22:52)
[2018-01-09] MEDS: SODIUM CHLOR IV.SIG SCH ×2 (08:27→22:52)
[2018-01-09] MEDS: Phenytoin Sodium 100 MG Capsule G-TUBE SCH ×3 (08:28→22:19)
[2018-01-09] MEDS: Furosemide 20 MG Tablet G-TUBE SCH (08:29)
[2018-01-09] MEDS: Potassium Chloride 10 MEQ ER Capsule PO SCH (08:29)
--- NOTE | 2018-01-09 09:20 | P.PNFP ---
Subjective Interval history: Overnight no new events. Family not at bedside. Nurse present during exam and reports no new changes over night. Patient is lying in bed. She is moaning , can arouse but not responsive, does not follow commands. Has some liquid stooling still today. Results - Labs Result diagrams: 01/10/18 06:45 01/10/18 06:45 Abnormal lab results 01/08/18 01/08/18 01/08/18 Range/Units 04:30 10:57 10:57 RBC 2.84 L (4.00-5.30) mil/mm3 Hgb 8.6 L (11.6-15.3) gm/dL Hct 26.6 L (35.0-46.0) % MCHC (32.0-36.0) % Sodium 147 H (136-145) meq/L Chloride 112 H (98-107) meq/L BUN 20 H (7-18) mg/dL Creatinine (0.50-1.00) mg/dL POC Glucose (68-110) mg/dl Random Glucose 205 H D (74-106) mg/dL Calcium 8.0 L (8.5-10.1) mg/dL Stl C.difficile Tox PCR Positive H (Negative) St C. diff Tox Epid 027 Positive H (Negative) 01/08/18 01/08/18 01/08/18 Range/Units 12:12 17:44 20:54 RBC (4.00-5.30) mil/mm3 Hgb (11.6-15.3) gm/dL Hct (35.0-46.0) % MCHC (32.0-36.0) % Sodium (136-145) meq/L Chloride (98-107) meq/L BUN (7-18) mg/dL Creatinine (0.50-1.00) mg/dL POC Glucose 266 H 131 H 131 H (68-110) mg/dl Random Glucose (74-106) mg/dL Calcium (8.5-10.1) mg/dL Stl C.difficile Tox PCR (Negative) St C. diff Tox Epid 027 (Negative) 01/09/18 01/09/18 01/09/18 Range/Units 07:15 07:15 07:24 RBC 2.77 L (4.00-5.30) mil/mm3 Hgb 8.4 L (11.6-15.3) gm/dL Hct 26.3 L (35.0-46.0) % MCHC 31.9 L (32.0-36.0) % Sodium 147 H (136-145) meq/L Chloride 113 H (98-107) meq/L BUN 19 H (7-18) mg/dL Creatinine 0.39 L (0.50-1.00) mg/dL POC Glucose 292 H (68-110) mg/dl Random Glucose 269 H (74-106) mg/dL Calcium 8.1 L (8.5-10.1) mg/dL Stl C.difficile Tox PCR (Negative) St C. diff Tox Epid 027 (Negative) Short CBC 01/08/18 01/09/18 Range/Units 10:57 07:15 WBC 8.4 6.3 (4.0-11.0) th/mm3 Hgb 8.6 L 8.4 L (11.6-15.3) gm/dL Hct 26.6 L 26.3 L (35.0-46.0) % Plt Count 235 246 (150-450) th/mm3 BMP 01/08/18 01/09/18 10:57 07:15 Sodium 147 H 147 H Potassium 3.9 4.1 Chloride 112 H 113 H Carbon Dioxide 25.3 26.0 BUN 20 H 19 H Creatinine 0.53 0.39 L Calcium 8.0 L 8.1 L Impressions . - Imaging Impressions Head CT 01/08/18 00:00 CONCLUSION: 1. Large evolving infarct on the right slight increase in swelling in effacement of the right lateral ventricle but without significant midline shift. Remote left cerebellar infarct. Physical Exam Vital signs: Vital Signs 01/08/18 12:00 01/08/18 16:00 01/08/18 20:00 Temperature 99 F 98.2 F 97.7 F Pulse Rate 103 H 73 71 Respiratory Rate 18 18 16 Blood Pressure 141/56 H 119/62 127/60 Pulse Oximetry 94 L 97 96 01/09/18 00:00 01/09/18 04:00 01/09/18 07:15 Temperature 97.7 F 98.0 F 98.5 F Pulse Rate 63 58 L 75 Respiratory Rate 16 14 19 Blood Pressure 120/68 110/57 L 145/65 H Pulse Oximetry 95 95 95 Intake & Output 01/08/18 01/09/18 01/09/18 18:59 06:59 18:59 Intake Total 308 / 308 Output Total 150 / 150 Balance 158 / 158 Intake: IV Cerebyx Inj 200 MGPE In NS Inj 104 / 104 100 ML @ 208 mls/hr IV.SIG Q12HR CARMEN Rx#:[id number] Rocephin Inj 1,000 MG In NS Inj 100 / 100 100 ML @ 200 mls/hr IV.SIG Q24H CARMEN Rx#:[id number] Water Bolus Amount 100 / 100 Output: Urine 150 / 150 Other: Date of Last Bowel Movement 01/07/18 01/07/18 Narrative: lethargic, arousable but not following commands Cards -- irr, irr Pulm -- able to assess anteriorly for the most part, she has some course breath sounds throughout, no wheezing, she has some belly breathing, no accessory muscle use, not oxygen requiring and oxygen sat 99% ABD - non distended, bs active Ext -- no obvious edema Assessment and Plan - Assessment (1) UTI (urinary tract infection) Code(s): N39.0 - Urinary tract infection, site not specified Status: Acute Plan: Pt spiked a low grade fever of 100.8F on 01/07/18. Has been afebrile since. UA shows moderate blood, moderate leukocyte esterase, and many bacteria -Blood cultures: Pending -Urine culture: Pending -Rocephin 1g IV qD (01/07- ) (2) Clostridium difficile diarrhea Code(s): A04.72 - Enterocolitis due to Clostridium difficile, not specified as recurrent Status: Acute Plan: Nursing staff reported up to 8 liquid bowel movements on 01/06/18. -Rectal tube in place without abnormality. [place] with what appears nonbloody, liquid stool. -Laxative/stool softeners held -C diff: Positive -Vancomycin per G-tube 125 mg 4 times daily per protocol -Lactobacillus 3 times daily to assist with gut rod (3) Sacral pressure ulcer Code(s): L89.159 - Pressure ulcer of sacral region, unspecified stage Status: Acute Plan: Patient found to have stage IV pressure ulcer of the sacrum -Nursing to rotate patient per protocol -Wound care consulted, appreciate recommendations -Reconsult wound care tomorrow to ensure proper healing, etc. (4) Acute CVA (cerebrovascular accident) Code(s): I63.9 - Cerebral infarction, unspecified Status: Acute Plan: Patient with new ischemic infarct, while on anticoagulation seen on CT head 01/03. Possibly this finding on CT on 01/03 due to new infarct or associated with extension of possible infarct on admission date which is now visible on CT scan. Will not be able to determine as patient was unable to have MRI on admission. Regardless this is a large infarct and most recent CT from 01/08 shows further extension and some edema. The risk for this transitioning to hemorrhagic is high. Continue to hold anticoagulation. Neurology is following in this case. Her overall prognosis for meaningful recovery remains very poor. Patients family continue to desire aggressive care and management and are hopeful for a recovery to her baseline prior to admission. - If/When to restart anticoagulation per neurology. Continue supportive care with PT/etc. (5) Altered mental status, unspecified Code(s): R41.82 - Altered mental status, unspecified Status: Acute Plan: On admission, patient presents with altered mental status, following witnessed seizure activity. Per EMS, GCS 3. Versed given en-route to hospital. Keppra given in ED. Patient with history of seizure disorder. Treated with Keppra. Patient with history of CVA x2. Residual left sided weakness. Patient with new infarct while on anticoagulation which was likely the precipitating event of her seizure at admission and continued AMS Patient believed to be at new baseline Orders: * Telemetry. * Neuro Check q4hrs. * Vital Checks q4hrs. * Seizure Precautions. Consults: * Neurology: Repeat EEG: negative for seizure activity. Continue depakote/ dilantin. * PT/OT when patient is able to comply. PT recommends PT at rehab if patient shows rehab potential. OT recommends OT at rehab. Medications: * Provigil 200mg PEG daily. * Dilantin 130mg PEG BID. * Dilantin 100mg PEG @1300. * Divalproex Sprinkles 500mg PEG BID (6) Seizure Code(s): R56.9 - Unspecified convulsions Status: Acute Plan: Patient with history of seizure disorder. [facility] a[place] day of admission. * See Plan above. (7) Poor nutrition Code(s): E63.9 - Nutritional deficiency, unspecified Status: Acute Plan: Patient with poor nutritional status. Tube feeds started 12/22. Tube feeds held 12/23 due to suspicion for refeeding syndrome. Phosphorus normalized 12/25. Tube feeds restarted 12/25. Jevity 1.5 started at 10/ml/hr, now at goal of 50 ml /hr. Patient receives 150ml of free water flushes q4hr. PEG tube feeds started 12/31 and patient tolerating well with stable electrolytes Consults: * GI: PEG tube placement 12/31 without complications, signed off on 12/31 * Cardiology: Moderate risk for PEG, unable to further decrease risk, can proceed. Anticoagulation restarted on 12/31 after PEG placement. Anticoagulation for this procedure was held on 12/28 and restarted on 12/31. * Dietary consulted: Recommend Jevity 1.5 at goal rate of 60 ml/hr over 20 hours with 100ml free water flushes Q4H as patient will receive additional free water flushes with medications (8) Palliative care patient Code(s): Z51.5 - Encounter for palliative care Status: Acute Plan: Palliative care consulted to assist with goals of care. Per family request, the family has repeatedly asked from the palliative care team to not contact them. Appreciate the palliative care team's assistance (9) History of CVA (cerebrovascular accident) Code(s): Z86.73 - Personal history of transient ischemic attack (TIA), and cerebral infarction without residual deficits Status: Chronic Plan: Patient with history of CVA x2. On admission, patient with altered mental status. Last known normal: Day prior to admission. -Please see plan as above (10) Pneumonia Code(s): J18.9 - Pneumonia, unspecified organism Status: Acute Plan: Patient with recent history of "pneumonia" per medication review. Patient with cough on exam. Admission Labs: * WBC 5.1. Imaging: * CXR 12/18: Stable enlargement of the cardiac silhouette. Otherwise, no acute abnormality is identified. * CXR 01/07: No focal or acute pulmonary infiltrates. NO significant changes compared to prior exam. * Medications: * Continue home Duoneb * Prednisone discontinued * Robitussin 10 mL q4hr PO PRN Cough. * Tessalon 200mg q8hr PO PRN Cough. (11) GERD (gastroesophageal reflux disease) Code(s): K21.9 - Gastro-esophageal reflux disease without esophagitis Status: Chronic Plan: Patient with history of GERD. Medications: * Pantoprazole IV. (12) Atrial fibrillation Code(s): I48.91 - Unspecified atrial fibrillation Status: Chronic Plan: Patient with history of A. fib. Patient with irregular irregular rhythm on exam. Cardiology consulted as above Medications: * Continue home Eliquis once cleared from Neurology post CVA * Continue carvedilol (13) CHF (congestive heart failure) Code(s): I50.9 - Heart failure, unspecified Status: Chronic Plan: Patient with history of congestive heart failure. Caution IVF. Medications: * Continue home Lasix and Coreg. (14) Hypertension Code(s): I10 - Essential (primary) hypertension Status: Chronic Plan: Patient with history of hypertension. Per neurology, goal less than 120/80. Medications: * Continue home Coreg. * Clonidine as needed for BP >180/110 (15) Nutrition, metabolism, and development symptoms Code(s): R63.8 - Other symptoms and signs concerning food and fluid intake Status: Acute Plan: Fluid: * Free water flushes Q4H and with medications Electrolyte: * Monitor and replete as necessary. Nutrition: * Tube feeds only with dietary consult. Free water flushes Q4H and with medications (16) DVT prophylaxis Status: Acute Plan: Prophylaxis: * SCDs. - Assessment and Plan Patient is an 87 year old female who presents to the [facility] ED via EMS following a witnessed seizure. Patient with history of seizure disorder. Patient given Versed en-route to hospital and Keppra bolus in ED. Patient's GCS 8 at time of admission encounter. Patient admitted for evaluation and management of seizure versus CVA. - Attending Attestation The exam, history, and the medical decision-making described in the above note were completed with the assistance of the resident physician. I reviewed and agree with the findings presented. I attest that I had a [id number] encounter with the patient on the same day, and personally performed and documented my assessment and findings in the medical record. (3) Sacral pressure ulcer Qualifiers: Pressure ulcer stage: stage 4 Qualified Code(s): L89.154 - Pressure ulcer of sacral region, stage 4 (5) Altered mental status, unspecified Qualifiers: Altered mental status type: unspecified Qualified Code(s): R41.82 - Altered mental status, unspecified (10) Pneumonia Qualifiers: Pneumonia type: due to unspecified organism Laterality: unspecified laterality Lung location: unspecified part of lung Qualified Code(s): J18.9 - Pneumonia, unspecified organism
--- NOTE | 2018-01-09 09:22 | P.PNNEU ---
Subjective Subjective Comments: No acute events reported Active Medications: Active Medications Generic Name Dose Route Start Last Admin Trade Name Freq PRN Reason Stop Dose Admin Albuterol 1 ampul 01/02/18 00:01 Duoneb Neb (Prn) INH Q6HR NEB PRN SOB/WHEEZING Aspirin 325 mg 01/05/18 09:00 01/09/18 08:25 Ecotrin PO 325 mg DAILY CARMEN Administration Atorvastatin Calcium 20 mg 01/02/18 21:00 01/08/18 21:18 Lipitor G-TUBE 20 mg HS CARMEN Administration Benzonatate 200 mg 01/02/18 00:01 Tessalon Perles PO Q8H PRN COUGH Carvedilol 6.25 mg 01/02/18 09:00 01/09/18 08:25 Coreg G-TUBE 6.25 mg Q12HR CARMEN Administration Clonidine HCl 0.1 mg 01/02/18 00:01 Catapres PO Q6H PRN SBP>180, DBP>110 Dextrose 50 ml 01/02/18 00:01 D50w Vial IV.PUSH UNSCH PRN HYPOGLYCEMIA-SEE COMMENTS Divalproex Sodium 500 mg 01/02/18 09:00 01/09/18 08:24 Depakote Sprinkles G-TUBE 500 mg BID CARMEN Administration Furosemide 20 mg 01/02/18 09:00 01/09/18 08:29 Lasix G-TUBE 20 mg DAILY CARMEN Administration Glucagon 1 mg 01/02/18 00:01 Glucagon Inj OTHER UNSCH PRN for Hypoglycemia Protocol Guaifenesin/Dextromethorphan 10 ml 01/02/18 00:01 Robitussin Dm 200/20 Mg/10 Ml Liq PO Q4H PRN COUGH Fosphenytoin Sodium 200 mgpe/ 104 mls @ 208 mls/hr 01/04/18 09:00 01/09/18 08 :27 Sodium Chloride IV.SIG 208 mls/hr Q12HR CARMEN Administration Ceftriaxone Sodium 1,000 mg/ 100 mls @ 200 mls/hr 01/07/18 20:00 01/08/18 21: 50 Sodium Chloride IV.SIG Infused Q24H CARMEN Infusion Insulin Aspart 0 unit 01/02/18 08:00 01/09/18 08:25 Novolog Insulin Suppl Scale Inj SQ 5 unit ACHS CARMEN Administration Protocol Lactobacillus Acidophilus 1 gm 01/08/18 14:00 01/09/18 08:26 Lactinex Pkt G-TUBE 1 gm TID CARMEN Administration Lorazepam 0.5 mg 01/02/18 00:01 Ativan Inj IV.PUSH HS PRN SLEEP Miscellaneous 1 each 01/02/18 00:01 Pill Splitter OTHER UNSCH PRN SEE LABEL COMMENTS Modafinil 200 mg 01/02/18 09:00 01/09/18 08:25 Provigil G-TUBE 200 mg DAILY CARMEN Administration Multivitamins/Minerals 1 tab 01/02/18 09:00 01/09/18 08:25 Theragran-M PO 1 tab DAILY CARMEN Administration Pantoprazole Sodium 40 mg 01/02/18 11:00 01/08/18 14:55 Protonix Inj IV.PUSH 40 mg Q24H CARMEN Administration Phenytoin Sodium 100 mg 01/02/18 09:00 01/09/18 08:28 Dilantin G-TUBE Not Given BID CARMEN Phenytoin Sodium 30 mg 01/02/18 09:00 01/09/18 08:28 Dilantin G-TUBE Not Given BID CARMEN Phenytoin Sodium 100 mg 01/02/18 13:00 01/08/18 14:56 Dilantin G-TUBE 100 mg DAILY@1300 CARMEN Administration Potassium Chloride 10 meq 01/02/18 09:00 01/09/18 08:29 Kcl PO Not Given DAILY CARMEN Sodium Chloride 2 ml 01/02/18 09:00 01/09/18 08:29 Ns Flush IV.FLUSH 2 ml BID CARMEN Administration Sodium Chloride 2 ml 01/02/18 00:01 01/07/18 22:19 Ns Flush IV.FLUSH 2 ml UNSCH PRN Administration FLUSH AFTER USING IV ACCESS Vancomycin HCl 125 mg 01/08/18 13:00 01/09/18 08:26 Vancomycin Po NG/OG 01/18/18 12:59 125 mg QID CARMEN Administration Allergies/Adverse Reactions: Allergies Allergy/AdvReac Type Severity Reaction Status Date / Time acetaminophen Allergy Severe nausea and Verified 01/01/18 11:09 vomiting propoxyphene Allergy Severe nausea and Verified 01/01/18 11:09 vomiting MRI PRECAUTION Allergy Severe UNKNOWN Uncoded 01/01/18 11:09 Physical Exam Vital signs: Vital Signs 01/08/18 12:00 01/08/18 16:00 01/08/18 20:00 Temperature 99 F 98.2 F 97.7 F Pulse Rate 103 H 73 71 Respiratory Rate 18 18 16 Blood Pressure 141/56 H 119/62 127/60 Pulse Oximetry 94 L 97 96 01/09/18 00:00 01/09/18 04:00 01/09/18 07:15 Temperature 97.7 F 98.0 F 98.5 F Pulse Rate 63 58 L 75 Respiratory Rate 16 14 19 Blood Pressure 120/68 110/57 L 145/65 H Pulse Oximetry 95 95 95 Intake & Output 01/08/18 01/09/18 01/09/18 18:59 06:59 18:59 Intake Total 308 / 308 204 / 204 Output Total 150 / 150 Balance 158 / 158 204 / 204 Intake: IV 208 / 208 204 / 204 Cerebyx Inj 200 MGPE In NS Inj 208 / 208 104 / 104 100 ML @ 208 mls/hr IV.SIG Q12HR CARMEN Rx#:[id number] Rocephin Inj 1,000 MG In NS Inj 100 / 100 100 ML @ 200 mls/hr IV.SIG Q24H CARMEN Rx#:[id number] Water Bolus Amount 100 / 100 Output: Urine 150 / 150 Other: Date of Last Bowel Movement 01/07/18 01/07/18 - Routine Neurological Exam lethargic, difficult to arouse pupils 3 mm bilateral and reactive. MOTOR--flaccid tone LUE and LLE Objective Laboratory Results - last 24 hr 01/08/18 01/08/18 01/08/18 04:30 10:57 10:57 WBC 8.4 RBC 2.84 L Hgb 8.6 L Hct 26.6 L MCV 93.8 MCH 30.2 MCHC 32.2 RDW 17.0 Plt Count 235 MPV 8.9 Hematology Comments Sodium 147 H Potassium 3.9 Chloride 112 H Carbon Dioxide 25.3 Anion Gap 10 BUN 20 H Creatinine 0.53 Estimated GFR Greater than 89 POC Glucose Random Glucose 205 H D Calcium 8.0 L Stl C.difficile Tox PCR Positive H St C. diff Tox Epid 027 Positive H 01/08/18 01/08/18 01/08/18 12:12 17:44 20:54 WBC RBC Hgb Hct MCV MCH MCHC RDW Plt Count MPV Hematology Comments Sodium Potassium Chloride Carbon Dioxide Anion Gap BUN Creatinine Estimated GFR POC Glucose 266 H 131 H 131 H Random Glucose Calcium Stl C.difficile Tox PCR St C. diff Tox Epid 027 01/09/18 01/09/18 01/09/18 07:15 07:15 07:24 WBC 6.3 RBC 2.77 L Hgb 8.4 L Hct 26.3 L MCV 94.8 MCH 30.3 MCHC 31.9 L RDW 16.8 Plt Count 246 MPV 7.8 Hematology Comments Sodium 147 H Potassium 4.1 Chloride 113 H Carbon Dioxide 26.0 Anion Gap 8 BUN 19 H Creatinine 0.39 L Estimated GFR Greater than 89 POC Glucose 292 H Random Glucose 269 H Calcium 8.1 L Stl C.difficile Tox PCR St C. diff Tox Epid 027 Review/Management - Diagnosis (1) Acute right MCA stroke Code(s): I63.511 - Cerebral infarction due to unspecified occlusion or stenosis of right middle cerebral artery Status: Acute Current Visit: Yes (2) Chronic right arterial ischemic stroke, MCA (middle cerebral artery) Code(s): I69.30 - Unspecified sequelae of cerebral infarction Status: Acute Current Visit: Yes (3) Hypertension Code(s): I10 - Essential (primary) hypertension Status: Chronic Current Visit: Yes - Review/Management Plan: Hold anticoagulation due to large size of stroke due to hemorrhagic risk prognosis guarded given large size of infarct. I attempted to call he daughter and left message.
[2018-01-09] MEDS: Pantoprazole Inj 40 MG Vial IV.PUSH SCH (10:49)
[2018-01-10 09:06] LABS: Hematocrit 26.9 % (35.0-46.0); Hemoglobin 8.6 gm/dL (11.6-15.3); Mean Corpuscular HGB Conc 32.1 % (32.0-36.0); Mean Corpuscular Hemoglobin 30.3 pg (27.0-34.0); Mean Corpuscular Volume 94.5 fL (80.0-100.0); Mean Platelet Volume 8.2 fL (7.0-11.0); Platelet Count 273 th/mm3 (150-450); Red Blood Count 2.84 mil/mm3 (4.00-5.30); Red Cell Distribution Width 16.9 % (11.6-17.2); White Blood Count 5.2 th/mm3 (4.0-11.0)
[2018-01-10 09:12] LABS: Anion Gap 8 meq/L (5-15); Blood Urea Nitrogen 18 mg/dL (7-18); Calcium 8.3 mg/dL (8.5-10.1); Chloride 111 meq/L (98-107); Glomerular Filtration Rate Greater Than 89 mL/min (>89); Glucose,Random 201 mg/dL (74-106); Potassium 4.1 meq/L (3.5-5.1); Sodium 148 meq/L (136-145)
[2018-01-10] MEDS: Divalproex 125 MG Sprinkles Capsule G-TUBE SCH ×2 (10:19→22:38)
[2018-01-10] MEDS: Potassium Chloride 10 MEQ ER Capsule PO SCH (10:19)
[2018-01-10] MEDS: Carvedilol 6.25 MG Tablet G-TUBE SCH ×2 (10:20→22:38)
[2018-01-10] MEDS: Multivitamin/Minerals Therapeutic Tablet PO SCH (10:20)
[2018-01-10] MEDS: Furosemide 20 MG Tablet G-TUBE SCH (10:20)
[2018-01-10] MEDS: Modafinil 200 MG Tablet G-TUBE SCH (10:20)
--- NOTE | 2018-01-10 10:34 | P.PNFP ---
Subjective Interval history: Patient seen and examined this morning. Family not at bedside. Pt did not open her eyes to her name being called and moaned. Nursing staff stated that they did not give her Dilantin because it cannot be crushed. Per chart review, she did not get it yesterday as well. Dr. Calabrese spoke with Kaci Arya, healthcare surrogate, and updated her of patient' s status. <Kaia Davis G - 01/10/18 17:18> Results - Labs Result diagrams: 01/11/18 07:01 01/11/18 07:01 <Katherin Nicole R - 01/11/18 08:37> Abnormal lab results 01/10/18 01/10/18 01/10/18 Range/Units 06:45 06:45 06:45 RBC 2.84 L (4.00-5.30) mil/mm3 Hgb 8.6 L (11.6-15.3) gm/dL Hct 26.9 L (35.0-46.0) % Sodium 148 H (136-145) meq/L Chloride 111 H (98-107) meq/L Creatinine 0.42 L (0.50-1.00) mg/dL POC Glucose (68-110) mg/dl Random Glucose 201 H (74-106) mg/dL Calcium 8.3 L (8.5-10.1) mg/dL B-Natriuretic Peptide 538 H (0-100) pg/mL 01/10/18 01/10/18 01/10/18 Range/Units 11:14 13:17 21:44 RBC (4.00-5.30) mil/mm3 Hgb (11.6-15.3) gm/dL Hct (35.0-46.0) % Sodium (136-145) meq/L Chloride (98-107) meq/L Creatinine (0.50-1.00) mg/dL POC Glucose 221 H 238 H 142 H (68-110) mg/dl Random Glucose (74-106) mg/dL Calcium (8.5-10.1) mg/dL B-Natriuretic Peptide (0-100) pg/mL 01/11/18 01/11/18 01/11/18 Range/Units 07:01 07:01 08:03 RBC 2.87 L (4.00-5.30) mil/mm3 Hgb 8.8 L (11.6-15.3) gm/dL Hct 27.4 L (35.0-46.0) % Sodium 149 H (136-145) meq/L Chloride 112 H (98-107) meq/L Creatinine 0.39 L (0.50-1.00) mg/dL POC Glucose 157 H (68-110) mg/dl Random Glucose 181 H (74-106) mg/dL Calcium 8.3 L (8.5-10.1) mg/dL B-Natriuretic Peptide (0-100) pg/mL Short CBC 01/10/18 01/11/18 Range/Units 06:45 07:01 WBC 5.2 5.3 (4.0-11.0) th/mm3 Hgb 8.6 L 8.8 L (11.6-15.3) gm/dL Hct 26.9 L 27.4 L (35.0-46.0) % Plt Count 273 319 (150-450) th/mm3 [facility] 01/10/18 01/11/18 06:45 07:01 Sodium 148 H 149 H Potassium 4.1 4.5 Chloride 111 H 112 H Carbon Dioxide 29.0 30.3 BUN 18 16 Creatinine 0.42 L 0.39 L Calcium 8.3 L 8.3 L <Katherin Nicole - 01/11/18 08:37> Abnormal lab results 01/09/18 01/09/18 01/09/18 Range/Units 12:38 16:50 22:10 RBC (4.00-5.30) mil/mm3 Hgb (11.6-15.3) gm/dL Hct (35.0-46.0) % Sodium (136-145) meq/L Chloride (98-107) meq/L Creatinine (0.50-1.00) mg/dL POC Glucose 201 H 126 H 174 H (68-110) mg/dl Random Glucose (74-106) mg/dL Calcium (8.5-10.1) mg/dL B-Natriuretic Peptide (0-100) pg/mL 01/10/18 01/10/18 01/10/18 Range/Units 06:45 06:45 06:45 RBC 2.84 L (4.00-5.30) mil/mm3 Hgb 8.6 L (11.6-15.3) gm/dL Hct 26.9 L (35.0-46.0) % Sodium 148 H (136-145) meq/L Chloride 111 H (98-107) meq/L Creatinine 0.42 L (0.50-1.00) mg/dL POC Glucose (68-110) mg/dl Random Glucose 201 H (74-106) mg/dL Calcium 8.3 L (8.5-10.1) mg/dL B-Natriuretic Peptide 538 H (0-100) pg/mL Short CBC 01/10/18 Range/Units 06:45 WBC 5.2 (4.0-11.0) th/mm3 Hgb 8.6 L (11.6-15.3) gm/dL Hct 26.9 L (35.0-46.0) % Plt Count 273 (150-450) th/mm3 BMP 01/10/18 06:45 Sodium 148 H Potassium 4.1 Chloride 111 H Carbon Dioxide 29.0 BUN 18 Creatinine 0.42 L Calcium 8.3 L <Kaia Davis G - 01/10/18 10:34> Physical Exam Vital signs: Vital Signs 01/10/18 12:00 01/10/18 16:00 01/10/18 19:20 Temperature 98.6 F 97.5 F L Pulse Rate 80 77 Respiratory Rate 17 17 20 Blood Pressure 131/56 L 101/59 L Pulse Oximetry 97 99 01/10/18 19:45 01/10/18 20:30 01/11/18 00:45 Temperature 97.9 F 98.7 F Pulse Rate 69 77 84 Respiratory Rate 18 Blood Pressure 108/56 L 110/88 Pulse Oximetry 98 94 L 01/11/18 03:55 01/11/18 05:50 Temperature 98.3 F Pulse Rate 69 98 H Respiratory Rate 24 Blood Pressure 114/88 Pulse Oximetry 93 L Intake & Output 01/10/18 01/11/18 01/11/18 18:59 06:59 18:59 Intake Total 110 / 110 Output Total 250 / 250 Balance -140 / -140 Weight 54.5 kg Intake: IV 110 / 110 Rocephin Inj 1,000 MG In NS Inj 110 / 110 100 ML @ 200 mls/hr IV.SIG Q24H [facility] Rx#:[id number] Oral 0 / 0 Output: Urine 250 / 250 Stool 0 / 0 Other: Date of Last Bowel Movement 01/09/18 <Katherin Nicole R - 01/11/18 08:37> Vital Signs 01/09/18 12:00 01/09/18 15:41 01/09/18 20:00 Temperature 97.5 F L 97.6 F 98.6 F Pulse Rate 74 72 Respiratory Rate 22 19 35 H Blood Pressure 100/60 98/61 L 111/85 Pulse Oximetry 94 L 96 93 L 01/10/18 00:00 01/10/18 04:00 01/10/18 08:00 Temperature 97.8 F 98.8 F 98.6 F Pulse Rate 79 74 98 H Respiratory Rate 28 H 30 H 17 Blood Pressure 119/75 139/68 134/69 Pulse Oximetry 93 L 92 L 99 Intake & Output 01/09/18 01/10/18 01/10/18 18:59 06:59 18:59 Intake Total 254 / 254 681 / 681 Output Total 750 / 750 900 / 900 Balance -496 / -496 -219 / -219 Weight 54 kg Intake: IV 104 / 104 100 / 100 Cerebyx Inj 200 MGPE In NS Inj 104 / 104 100 ML @ 208 mls/hr IV.SIG Q12HR [facility] Rx#:[id number] Rocephin Inj 1,000 MG In NS Inj 100 / 100 100 ML @ 200 mls/hr IV.SIG Q24H [facility] Rx#:[id number] Oral 0 / 0 Tube Feeding 150 / 150 481 / 481 Water Bolus Amount 100 / 100 Output: Urine 150 / 150 Stool 750 / 750 750 / 750 Other: # Incontinent Voids 3 Date of Last Bowel Movement 01/09/18 01/09/18 # Bowel Movements 2 # Incontinent Bowel Movements 6 <Kaia Davis G - 01/10/18 10:34> Narrative: GENERAL: Frail, elderly female lying in bed sleeping, not in acute distress. SKIN: Cool and dry. HEENT: Atraumatic, normocephalic. No rhinorrhea. No visible lymphadenopathy or JVD appreciated. CARDIOVASCULAR: Irregular rate and irregular rhythm without obvious murmurs, gallops or rubs. 2+ pulses in all four extremities. RESPIRATORY: Clear to auscultation anteriorly without obvious CRW. No increased work of breathing. GASTROINTESTINAL: PEG tube in place without surrounding drainage, erythema, or warmth. Abdominal binder in place; abdominal binder clean and dry. Bowel sounds in all 4 quadrants. Patient appears to be nontender to palpation without obvious masses. MUSCULOSKELETAL: No cyanosis or edema. No calf tenderness. 2+ pitting edema of left hand. NEURO/PSYCH: Full neurologic exam unable to be performed due to mental status at this time. <Kaia Davis - 01/10/18 17:18> Assessment and Plan - Assessment (1) UTI (urinary tract infection) Code(s): N39.0 - Urinary tract infection, site not specified Status: Acute (2) Clostridium difficile diarrhea Code(s): A04.72 - Enterocolitis due to Clostridium difficile, not specified as recurrent Status: Acute (3) Sacral pressure ulcer Code(s): L89.159 - Pressure ulcer of sacral region, unspecified stage Status: Acute (4) Acute CVA (cerebrovascular accident) Code(s): I63.9 - Cerebral infarction, unspecified Status: Acute (5) Altered mental status, unspecified Code(s): R41.82 - Altered mental status, unspecified Status: Acute (6) Seizure Code(s): R56.9 - Unspecified convulsions Status: Acute (7) Poor nutrition Code(s): E63.9 - Nutritional deficiency, unspecified Status: Acute (8) Palliative care patient Code(s): Z51.5 - Encounter for palliative care Status: Acute (9) History of CVA (cerebrovascular accident) Code(s): Z86.73 - Personal history of transient ischemic attack (TIA), and cerebral infarction without residual deficits Status: Chronic (10) Pneumonia Code(s): J18.9 - Pneumonia, unspecified organism Status: Acute (11) GERD (gastroesophageal reflux disease) Code(s): K21.9 - Gastro-esophageal reflux disease without esophagitis Status: Chronic (12) Atrial fibrillation Code(s): I48.91 - Unspecified atrial fibrillation Status: Chronic (13) CHF (congestive heart failure) Code(s): I50.9 - Heart failure, unspecified Status: Chronic (14) Hypertension Code(s): I10 - Essential (primary) hypertension Status: Chronic (15) Nutrition, metabolism, and development symptoms Code(s): R63.8 - Other symptoms and signs concerning food and fluid intake Status: Acute (16) DVT prophylaxis Status: Acute <Katherin Nicole - 01/11/18 08:37> (1) UTI (urinary tract infection) Code(s): N39.0 - Urinary tract infection, site not specified Status: Acute Plan: Pt spiked a low grade fever of 100.8F on 01/07/18. Has been afebrile since. UA shows moderate blood, moderate leukocyte esterase, and many bacteria -Blood cultures: NGTD -Urine culture: Fern albicans -Rocephin 1g IV qD (01/07- ) (2) Clostridium difficile diarrhea Code(s): A04.72 - Enterocolitis due to Clostridium difficile, not specified as recurrent Status: Acute Plan: Nursing staff reported up to 8 liquid bowel movements on 01/06/18. -Rectal tube in place without abnormality. [facility] with what appears nonbloody, liquid stool. -Laxative/stool softeners held -C diff: Positive for toxin epiderm 027 -Vancomycin per G-tube 125 mg 4 times daily per protocol -Lactobacillus 3 times daily to assist with gut rod (3) Sacral pressure ulcer Code(s): L89.159 - Pressure ulcer of sacral region, unspecified stage Status: Acute Plan: Patient found to have stage IV pressure ulcer of the sacrum -Nursing to rotate patient per protocol -Wound care consulted, appreciate recommendations (4) Acute CVA (cerebrovascular accident) Code(s): I63.9 - Cerebral infarction, unspecified Status: Acute Plan: Patient with new ischemic infarct, while on anticoagulation seen on CT head 01/03. Possibly this finding on CT on 01/03 due to new infarct or associated with extension of possible infarct on admission date which is now visible on CT scan. Will not be able to determine as patient was unable to have MRI on admission. Regardless this is a large infarct and most recent CT from 01/08 shows further extension and some edema. The risk for this transitioning to hemorrhagic is high. Continue to hold anticoagulation. Neurology is following in this case. Her overall prognosis for meaningful recovery remains very poor. Patients family continue to desire aggressive care and management and are hopeful for a recovery to her baseline prior to admission. - If/When to restart anticoagulation per neurology. Continue supportive care with PT/etc. (5) Altered mental status, unspecified Code(s): R41.82 - Altered mental status, unspecified Status: Acute Plan: Patient's mentation has not returned to baseline due to new evolving right MCA infarct. This is likely her new baseline. On admission, patient presents with altered mental status, following witnessed seizure activity. Per EMS, GCS 3. Versed given en-route to hospital. Keppra given in ED. Patient with history of seizure disorder. Treated with Keppra. Patient with history of CVA x2. Residual left sided weakness. Patient with new infarct while on anticoagulation which was likely the precipitating event of her seizure at admission and continued AMS Patient believed to be at new baseline Orders: * Telemetry. * Neuro Check q4hrs. * Vital Checks q4hrs. * Seizure Precautions. Consults: * Neurology: Repeat EEG: negative for seizure activity. Continue depakote/ dilantin. * PT/OT when patient is able to comply. PT recommends PT at rehab if patient shows rehab potential. OT recommends OT at rehab. Medications: * Provigil 200mg PEG daily. * Dilantin 130mg PEG BID. Changed to liquid form on 01/10 due to nursing staff inconsistently giving medication in capsule form. * Dilantin 100mg PEG @1300. Liquid form * Divalproex Sprinkles 500mg PEG BID (6) Seizure Code(s): R56.9 - Unspecified convulsions Status: Acute Plan: Patient with history of seizure disorder. Witnessed seizure at group home in a.m. day of admission. * See Plan above. (7) Poor nutrition Code(s): E63.9 - Nutritional deficiency, unspecified Status: Acute Plan: Patient with poor nutritional status. Tube feeds started 12/22. Tube feeds held 12/23 due to suspicion for refeeding syndrome. Phosphorus normalized 12/25. Tube feeds restarted 12/25. Jevity 1.5 started at 10/ml/hr, now at goal of 50 ml /hr. Patient receives 150ml of free water flushes q4hr. PEG tube feeds started 12/31 and patient tolerating well with stable electrolytes Consults: * GI: PEG tube placement 12/31 without complications, signed off on 12/31 * Cardiology: Moderate risk for PEG, unable to further decrease risk, can proceed. Anticoagulation restarted on 12/31 after PEG placement. Anticoagulation for this procedure was held on 12/28 and restarted on 12/31. * Dietary consulted: Recommend Jevity 1.5 at goal rate of 60 ml/hr over 20 hours with 100ml free water flushes Q4H as patient will receive additional free water flushes with medications (8) Palliative care patient Code(s): Z51.5 - Encounter for palliative care Status: Acute Plan: Palliative care consulted to assist with goals of care. Per family request, the family has repeatedly asked from the palliative care team to not contact them. Appreciate the palliative care team's assistance (9) History of CVA (cerebrovascular accident) Code(s): Z86.73 - Personal history of transient ischemic attack (TIA), and cerebral infarction without residual deficits Status: Chronic Plan: Patient with history of CVA x2. On admission, patient with altered mental status. Last known normal: Day prior to admission. -Please see plan as above (10) Pneumonia Code(s): J18.9 - Pneumonia, unspecified organism Status: Acute Plan: Patient with recent history of "pneumonia" per medication review. Patient with cough on exam. Admission Labs: * WBC 5.1. Imaging: * CXR 12/18: Stable enlargement of the cardiac silhouette. Otherwise, no acute abnormality is identified. * CXR 01/07: No focal or acute pulmonary infiltrates. NO significant changes compared to prior exam. * Medications: * Continue home Duoneb * Prednisone discontinued * Robitussin 10 mL q4hr PO PRN Cough. * Tessalon 200mg q8hr PO PRN Cough. (11) GERD (gastroesophageal reflux disease) Code(s): K21.9 - Gastro-esophageal reflux disease without esophagitis Status: Chronic Plan: Patient with history of GERD. Medications: * Pantoprazole IV. (12) Atrial fibrillation Code(s): I48.91 - Unspecified atrial fibrillation Status: Chronic Plan: Patient with history of A. fib. Patient with irregular irregular rhythm on exam. Cardiology consulted as above Medications: * Will continue home Eliquis once cleared from Neurology post CVA * Continue carvedilol (13) CHF (congestive heart failure) Code(s): I50.9 - Heart failure, unspecified Status: Chronic Plan: Patient with history of congestive heart failure. Caution IVF. Medications: * Continue home Lasix and Coreg. (14) Hypertension Code(s): I10 - Essential (primary) hypertension Status: Chronic Plan: Patient with history of hypertension. Per neurology, goal less than 120/80. Medications: * Continue home Coreg. * Clonidine as needed for BP >180/110 (15) Nutrition, metabolism, and development symptoms Code(s): R63.8 - Other symptoms and signs concerning food and fluid intake Status: Acute Plan: Fluid: * Free water flushes Q4H and with medications Electrolyte: * Monitor and replete as necessary. Nutrition: * Tube feeds only with dietary consult. Free water flushes Q4H and with medications (16) DVT prophylaxis Status: Acute Plan: Prophylaxis: * SCDs. <Kaia Davis - 01/10/18 16:57> - Assessment and Plan Patient is an 87 year old female who presents to the [place] ED via EMS following a witnessed seizure. Patient with history of seizure disorder. Patient given Versed en-route to hospital and Keppra bolus in ED. Patient's GCS 8 at time of admission encounter. Patient originally admitted for evaluation and management of seizure versus CVA. New CVA in right MCA region found by head CT on 01/03 (likely the original inciting event for admission) with further evolution on 01/08. <Kaia Davis - 01/10/18 17:18> Discussed Condition With: Dr. Calabrese, Dr. Nicole <Kaia Davis - 01/10/18 17:18> Discharge Planning: Pending placement CM consulted to assist <Kaia Davis - 01/10/18 17:18> - Attending Attestation The exam, history, and the medical decision-making described in the above note were completed with the assistance of the resident physician. I reviewed and agree with the findings presented. I attest that I had a [id number] encounter with the patient on the same day, and personally performed and documented my assessment and findings in the medical record. <Katherin Nicole - 01/11/18 08:37> <RyanKaia brown G - Last Filed: 01/10/18 16:57> (3) Sacral pressure ulcer Qualifiers: Pressure ulcer stage: stage 4 Qualified Code(s): L89.154 - Pressure ulcer of sacral region, stage 4 (5) Altered mental status, unspecified Qualifiers: Altered mental status type: unspecified Qualified Code(s): R41.82 - Altered mental status, unspecified (10) Pneumonia Qualifiers: Pneumonia type: due to unspecified organism Laterality: unspecified laterality Lung location: unspecified part of lung Qualified Code(s): J18.9 - Pneumonia, unspecified organism <Katherin Nicole R - Last Filed: 01/11/18 08:37> (3) Sacral pressure ulcer Qualifiers: Pressure ulcer stage: stage 4 Qualified Code(s): L89.154 - Pressure ulcer of sacral region, stage 4 (5) Altered mental status, unspecified Qualifiers: Altered mental status type: unspecified Qualified Code(s): R41.82 - Altered mental status, unspecified (10) Pneumonia Qualifiers: Pneumonia type: due to unspecified organism Laterality: unspecified laterality Lung location: unspecified part of lung Qualified Code(s): J18.9 - Pneumonia, unspecified organism <RyanKaia G - Last Filed: 01/10/18 16:57> (3) Sacral pressure ulcer Qualifiers: Pressure ulcer stage: stage 4 Qualified Code(s): L89.154 - Pressure ulcer of sacral region, stage 4 (5) Altered mental status, unspecified Qualifiers: Altered mental status type: unspecified Qualified Code(s): R41.82 - Altered mental status, unspecified (10) Pneumonia Qualifiers: Pneumonia type: due to unspecified organism Laterality: unspecified laterality Lung location: unspecified part of lung Qualified Code(s): J18.9 - Pneumonia, unspecified organism <Katherin Nicole - Last Filed: 01/11/18 08:37> (3) Sacral pressure ulcer Qualifiers: Pressure ulcer stage: stage 4 Qualified Code(s): L89.154 - Pressure ulcer of sacral region, stage 4 (5) Altered mental status, unspecified Qualifiers: Altered mental status type: unspecified Qualified Code(s): R41.82 - Altered mental status, unspecified (10) Pneumonia Qualifiers: Pneumonia type: due to unspecified organism Laterality: unspecified laterality Lung location: unspecified part of lung Qualified Code(s): J18.9 - Pneumonia, unspecified organism
[2018-01-10] MEDS: SODIUM CHLOR IV.SIG SCH (10:52)
[2018-01-10] MEDS: FOSPHENYTOIN IV.SIG SCH (10:52)
[2018-01-10] MEDS: Phenytoin Sodium 100 MG Capsule G-TUBE SCH (10:53)
[2018-01-10] MEDS: Pantoprazole Inj 40 MG Vial IV.PUSH SCH (10:53)
[2018-01-10] MEDS: Phenytoin Susp 100 MG/4 ML UDC G-TUBE SCH ×2 (13:32→22:39)
[2018-01-10] MEDS: Insulin NovoLOG Aspart Correctional Sugar Inj SQ SCH ×4 (13:32→22:37)
--- NOTE | 2018-01-10 16:23 | P.PNNEU ---
Subjective Subjective Comments: No acute events reported Active Medications: Active Medications Generic Name Dose Route Start Last Admin Trade Name Freq PRN Reason Stop Dose Admin Albuterol 1 ampul 01/02/18 00:01 Duoneb Neb (Prn) INH Q6HR NEB PRN SOB/WHEEZING Aspirin 325 mg 01/05/18 09:00 01/10/18 10:20 Ecotrin PO 325 mg DAILY [facility] Administration Atorvastatin Calcium 20 mg 01/02/18 21:00 01/09/18 22:31 Lipitor G-TUBE 20 mg HS [facility] Administration Carvedilol 6.25 mg 01/02/18 09:00 01/10/18 10:20 Coreg G-TUBE 6.25 mg Q12HR [facility] Administration Clonidine HCl 0.1 mg 01/02/18 00:01 Catapres PO Q6H PRN SBP>180, DBP>110 Dextrose 50 ml 01/02/18 00:01 D50w Vial IV.PUSH UNSCH PRN HYPOGLYCEMIA-SEE COMMENTS Divalproex Sodium 500 mg 01/02/18 09:00 01/10/18 10:19 Depakote Sprinkles G-TUBE 500 mg BID [facility] Administration Furosemide 20 mg 01/02/18 09:00 01/10/18 10:20 Lasix G-TUBE 20 mg DAILY [facility] Administration Glucagon 1 mg 01/02/18 00:01 Glucagon Inj OTHER UNSCH PRN for Hypoglycemia Protocol Ceftriaxone Sodium 1,000 mg/ 100 mls @ 200 mls/hr 01/07/18 20:00 01/09/18 23: 40 Sodium Chloride IV.SIG Infused Q24H [facility] Infusion Insulin Aspart 0 unit 01/02/18 08:00 01/10/18 13:33 Novolog Insulin Suppl Scale Inj SQ 3 unit ACHS [facility] Administration Protocol Lactobacillus Acidophilus 1 gm 01/08/18 14:00 01/10/18 13:30 Lactinex Pkt G-TUBE 1 gm TID [facility] Administration Lorazepam 0.5 mg 01/02/18 00:01 Ativan Inj IV.PUSH HS PRN SLEEP Miscellaneous 1 each 01/02/18 00:01 Pill Splitter OTHER UNSCH PRN SEE LABEL COMMENTS Modafinil 200 mg 01/02/18 09:00 01/10/18 10:20 Provigil G-TUBE 200 mg DAILY [facility] Administration Multivitamins/Minerals 1 tab 01/02/18 09:00 01/10/18 10:20 Theragran-M PO 1 tab DAILY [facility] Administration Pantoprazole Sodium 40 mg 01/02/18 11:00 01/10/18 10:53 Protonix Inj IV.PUSH 40 mg Q24H [facility] Administration Phenytoin 130 mg 01/10/18 21:00 Dilantin Liq G-TUBE BID [facility] Phenytoin 100 mg 01/10/18 13:00 01/10/18 13:32 Dilantin Liq G-TUBE 100 mg DAILY@1300 [facility] Administration Potassium Chloride 10 meq 01/02/18 09:00 01/10/18 10:19 Kcl PO 10 meq DAILY [facility] Administration Sodium Chloride 2 ml 01/02/18 09:00 01/10/18 10:22 Ns Flush IV.FLUSH 2 ml BID [facility] Administration Sodium Chloride 2 ml 01/02/18 00:01 01/07/18 22:19 Ns Flush IV.FLUSH 2 ml UNSCH PRN Administration FLUSH AFTER USING IV ACCESS Vancomycin HCl 125 mg 01/08/18 13:00 01/10/18 13:36 Vancomycin Po NG/OG 01/18/18 12:59 125 mg QID [facility] Administration Allergies/Adverse Reactions: Allergies Allergy/AdvReac Type Severity Reaction Status Date / Time acetaminophen Allergy Severe nausea and Verified 01/01/18 11:09 vomiting propoxyphene Allergy Severe nausea and Verified 01/01/18 11:09 vomiting MRI PRECAUTION Allergy Severe UNKNOWN Uncoded 01/01/18 11:09 Physical Exam Vital signs: Vital Signs 01/09/18 20:00 01/10/18 00:00 01/10/18 04:00 Temperature 98.6 F 97.8 F 98.8 F Pulse Rate 72 79 74 Respiratory Rate 35 H 28 H 30 H Blood Pressure 111/85 119/75 139/68 Pulse Oximetry 93 L 93 L 92 L 01/10/18 08:00 01/10/18 12:00 Temperature 98.6 F 98.6 F Pulse Rate 98 H 80 Respiratory Rate 17 17 Blood Pressure 134/69 131/56 L Pulse Oximetry 99 97 Intake & Output 01/09/18 01/10/18 01/10/18 18:59 06:59 18:59 Intake Total 254 / 254 785 / 785 Output Total 750 / 750 900 / 900 Balance -496 / -496 -115 / -115 Weight 54 kg Intake: IV 104 / 104 204 / 204 Cerebyx Inj 200 MGPE In NS Inj 104 / 104 104 / 104 100 ML @ 208 mls/hr IV.SIG Q12HR [facility] Rx#:[id number] Rocephin Inj 1,000 MG In NS Inj 100 / 100 100 ML @ 200 mls/hr IV.SIG Q24H [facility] Rx#:[id number] Oral 0 / 0 Tube Feeding 150 / 150 481 / 481 Water Bolus Amount 100 / 100 Output: Urine 150 / 150 Stool 750 / 750 750 / 750 Other: # Incontinent Voids 3 Date of Last Bowel Movement 01/09/18 01/09/18 # Bowel Movements 2 # Incontinent Bowel Movements 6 - Routine Neurological Exam lethargic. difficulty arousing. Follows some simple commands PERRL. LUMN CN 7 palsey MOTOR 0/5 LUE and LLE. increase tone right Objective Laboratory Results - last 24 hr 01/09/18 01/09/18 01/10/18 16:50 22:10 06:45 WBC 5.2 RBC 2.84 L Hgb 8.6 L Hct 26.9 L MCV 94.5 MCH 30.3 MCHC 32.1 RDW 16.9 Plt Count 273 MPV 8.2 Sodium Potassium Chloride Carbon Dioxide Anion Gap BUN Creatinine Estimated GFR POC Glucose 126 H 174 H Random Glucose Calcium B-Natriuretic Peptide 01/10/18 01/10/18 01/10/18 06:45 06:45 11:14 WBC RBC Hgb Hct MCV MCH MCHC RDW Plt Count MPV Sodium 148 H Potassium 4.1 Chloride 111 H Carbon Dioxide 29.0 Anion Gap 8 BUN 18 Creatinine 0.42 L Estimated GFR Greater than 89 POC Glucose 221 H Random Glucose 201 H Calcium 8.3 L B-Natriuretic Peptide 538 H 01/10/18 13:17 WBC RBC Hgb Hct MCV MCH MCHC RDW Plt Count MPV Sodium Potassium Chloride Carbon Dioxide Anion Gap BUN Creatinine Estimated GFR POC Glucose 238 H Random Glucose Calcium B-Natriuretic Peptide Microbiology 01/08/18 17:10 Urine Culture - Final Catheterized Urine Fern albicans 01/08/18 22:04 Aerobic Blood Culture - Preliminary Blood - Peripheral No growth in 2 days Anaerobic Blood Culture - Preliminary No growth in 2 days 01/08/18 22:04 Aerobic Blood Culture - Preliminary Blood - Peripheral No growth in 2 days Anaerobic Blood Culture - Preliminary No growth in 2 days Review/Management - Diagnosis (1) Acute right MCA stroke Code(s): I63.511 - Cerebral infarction due to unspecified occlusion or stenosis of right middle cerebral artery Status: Acute Current Visit: Yes (2) Chronic right arterial ischemic stroke, MCA (middle cerebral artery) Code(s): I69.30 - Unspecified sequelae of cerebral infarction Status: Acute Current Visit: Yes (3) Hypertension Code(s): I10 - Essential (primary) hypertension Status: Chronic Current Visit: Yes - Review/Management Plan: Hold anticoagulation due to large size of stroke due to hemorrhagic risk prognosis guarded given large size of infarct.
[2018-01-11 07:14] LABS: Hematocrit 27.4 % (35.0-46.0); Hemoglobin 8.8 gm/dL (11.6-15.3); Mean Corpuscular HGB Conc 32.2 % (32.0-36.0); Mean Corpuscular Hemoglobin 30.7 pg (27.0-34.0); Mean Corpuscular Volume 95.4 fL (80.0-100.0); Mean Platelet Volume 7.8 fL (7.0-11.0); Platelet Count 319 th/mm3 (150-450); Red Blood Count 2.87 mil/mm3 (4.00-5.30); Red Cell Distribution Width 16.8 % (11.6-17.2); White Blood Count 5.3 th/mm3 (4.0-11.0)
[2018-01-11 07:32] LABS: Anion Gap 7 meq/L (5-15); Blood Urea Nitrogen 16 mg/dL (7-18); Calcium 8.3 mg/dL (8.5-10.1); Carbon Dioxide 30.3 meq/L (21.0-32.0); Chloride 112 meq/L (98-107); Glomerular Filtration Rate Greater Than 89 mL/min (>89); Glucose,Random 181 mg/dL (74-106); Potassium 4.5 meq/L (3.5-5.1); Sodium 149 meq/L (136-145)
[2018-01-11] MEDS: Pantoprazole Inj 40 MG Vial IV.PUSH SCH (09:50)
[2018-01-11] MEDS: Phenytoin Susp 100 MG/4 ML UDC G-TUBE SCH ×3 (09:55→21:15)
[2018-01-11] MEDS: Carvedilol 6.25 MG Tablet G-TUBE SCH ×2 (09:55→21:16)
[2018-01-11] MEDS: Potassium Chloride 10 MEQ ER Capsule PO SCH (09:56)
[2018-01-11] MEDS: Modafinil 200 MG Tablet G-TUBE SCH (09:56)
[2018-01-11] MEDS: Multivitamin/Minerals Therapeutic Tablet PO SCH (09:56)
[2018-01-11] MEDS: Divalproex 125 MG Sprinkles Capsule G-TUBE SCH ×2 (09:56→21:16)
[2018-01-11] MEDS: Furosemide 20 MG Tablet G-TUBE SCH (09:57)
[2018-01-11] MEDS: Insulin NovoLOG Aspart Correctional Sugar Inj SQ SCH ×4 (13:34→21:27)
--- NOTE | 2018-01-11 21:13 | P.PNFP ---
Subjective Interval history: Patient seen and examined this morning. Family not at bedside. Patient did not open eyes to her name being called. Today she localized to sternal rub by reaching out with her right arm and moaned. No significant neurological or mental status change from yesterday. <Ivis Calabrese - 01/11/18 22:08> Results - Labs Result diagrams: 01/12/18 05:55 01/12/18 05:55 <Suzy Fischer - 01/12/18 12:12> Abnormal lab results 01/11/18 01/11/18 01/11/18 Range/Units 13:05 17:51 21:20 RBC (4.00-5.30) mil/mm3 Hgb (11.6-15.3) gm/dL Hct (35.0-46.0) % MCHC (32.0-36.0) % Sodium (136-145) meq/L Chloride (98-107) meq/L Anion Gap (5-15) meq/L Creatinine (0.50-1.00) mg/dL POC Glucose 220 H 156 H 172 H (68-110) mg/dl Random Glucose (74-106) mg/dL Calcium (8.5-10.1) mg/dL 01/12/18 01/12/18 01/12/18 Range/Units 05:55 05:55 07:33 RBC 2.80 L (4.00-5.30) mil/mm3 Hgb 8.6 L (11.6-15.3) gm/dL Hct 26.9 L (35.0-46.0) % MCHC 31.9 L (32.0-36.0) % Sodium 148 H (136-145) meq/L Chloride 114 H (98-107) meq/L Anion Gap 4 L (5-15) meq/L Creatinine 0.40 L (0.50-1.00) mg/dL POC Glucose 172 H (68-110) mg/dl Random Glucose 169 H (74-106) mg/dL Calcium 8.1 L (8.5-10.1) mg/dL Short CBC 01/12/18 Range/Units 05:55 WBC 5.8 (4.0-11.0) th/mm3 Hgb 8.6 L (11.6-15.3) gm/dL Hct 26.9 L (35.0-46.0) % Plt Count 299 (150-450) th/mm3 [facility] 01/12/18 05:55 Sodium 148 H Potassium 4.8 Chloride 114 H Carbon Dioxide 29.9 BUN 16 Creatinine 0.40 L Calcium 8.1 L <Alexa Fischere - 01/12/18 12:12> Abnormal lab results 01/10/18 01/11/18 01/11/18 Range/Units 21:44 07:01 07:01 RBC 2.87 L (4.00-5.30) mil/mm3 Hgb 8.8 L (11.6-15.3) gm/dL Hct 27.4 L (35.0-46.0) % Sodium 149 H (136-145) meq/L Chloride 112 H (98-107) meq/L Creatinine 0.39 L (0.50-1.00) mg/dL POC Glucose 142 H (68-110) mg/dl Random Glucose 181 H (74-106) mg/dL Calcium 8.3 L (8.5-10.1) mg/dL 01/11/18 01/11/18 01/11/18 Range/Units 08:03 13:05 17:51 RBC (4.00-5.30) mil/mm3 Hgb (11.6-15.3) gm/dL Hct (35.0-46.0) % Sodium (136-145) meq/L Chloride (98-107) meq/L Creatinine (0.50-1.00) mg/dL POC Glucose 157 H 220 H 156 H (68-110) mg/dl Random Glucose (74-106) mg/dL Calcium (8.5-10.1) mg/dL Short CBC 01/11/18 Range/Units 07:01 WBC 5.3 (4.0-11.0) th/mm3 Hgb 8.8 L (11.6-15.3) gm/dL Hct 27.4 L (35.0-46.0) % Plt Count 319 (150-450) th/mm3 [facility] 01/11/18 07:01 Sodium 149 H Potassium 4.5 Chloride 112 H Carbon Dioxide 30.3 BUN 16 Creatinine 0.39 L Calcium 8.3 L <Ivis Calabrese - 01/11/18 21:13> - Imaging Impressions Chest X-Ray 01/12/18 00:00 CONCLUSION: Moderate consolidative changes left base that have progressed in the interval with some trace bronchograms. <Suzy Fischer - 01/12/18 12:12> Physical Exam Vital signs: Vital Signs 01/11/18 16:00 01/11/18 20:00 01/11/18 21:30 Temperature 97.5 F L 98.7 F Pulse Rate 77 87 23 L Respiratory Rate 20 23 Blood Pressure 113/65 Pulse Oximetry 99 93 L 01/12/18 01:40 01/12/18 05:00 01/12/18 08:08 Temperature 97.6 F 99 F 97.9 F Pulse Rate 88 67 99 H Respiratory Rate 24 18 Blood Pressure 120/69 112/90 95/53 L Pulse Oximetry 93 L 91 L 93 L 01/12/18 11:42 Temperature Pulse Rate 99 H Respiratory Rate 19 Blood Pressure Pulse Oximetry Intake & Output 01/11/18 01/12/18 01/12/18 18:59 06:59 18:59 Intake Total 0 / 0 Output Total 0 / 0 Balance 0 / 0 Weight 55 kg Intake: Oral 0 / 0 Output: Urine 0 / 0 Stool 0 / 0 Other: Date of Last Bowel Movement 01/09/18 01/11/18 01/11/18 # Bowel Movements 0 <Suzy Fischer - 01/12/18 12:12> Vital Signs 01/11/18 00:45 01/11/18 03:55 01/11/18 05:50 Temperature 98.7 F 98.3 F Pulse Rate 84 69 98 H Respiratory Rate 24 Blood Pressure 110/88 114/88 Pulse Oximetry 94 L 93 L 01/11/18 08:00 01/11/18 12:00 01/11/18 16:00 Temperature 97.5 F L 97.8 F 97.5 F L Pulse Rate 89 81 64 Respiratory Rate 20 20 20 Blood Pressure 112/71 108/61 113/65 Pulse Oximetry 94 L 98 99 Intake & Output 01/11/18 01/11/18 01/12/18 06:59 18:59 06:59 Intake Total 110 / 110 Output Total 250 / 250 Balance -140 / -140 Weight 54.5 kg Intake: IV 110 / 110 Rocephin Inj 1,000 MG In NS Inj 110 / 110 100 ML @ 200 mls/hr IV.SIG Q24H [facility] Rx#:[id number] Oral 0 / 0 Output: Urine 250 / 250 Stool 0 / 0 Other: Date of Last Bowel Movement 01/09/18 <Ivis Calabrese - 01/11/18 21:13> Narrative: Narrative: GENERAL: Frail, elderly female lying in bed sleeping, not in acute distress. SKIN: Cool and dry. HEENT: Atraumatic, normocephalic. No rhinorrhea. No visible lymphadenopathy or JVD appreciated. CARDIOVASCULAR: Irregular rate and irregular rhythm without obvious murmurs, gallops or rubs. 2+ pulses in all four extremities. RESPIRATORY: Clear to auscultation anteriorly without obvious CRW. No increased work of breathing. GASTROINTESTINAL: PEG tube in place without surrounding drainage, erythema, or warmth. Bowel sounds in all 4 quadrants. Patient appears to be nontender to palpation without obvious masses. MUSCULOSKELETAL: No cyanosis or edema. No calf tenderness. 1+ pitting edema of left hand and right extremity. NEURO/PSYCH: Full neurologic exam unable to be performed due to mental status at this time. <Ivis Calabrese - 01/11/18 22:08> Assessment and Plan - Assessment (1) UTI (urinary tract infection) Code(s): N39.0 - Urinary tract infection, site not specified Status: Acute Plan: Pt spiked a low grade fever of 100.8F on 01/07/18. She has been afebrile since. UA shows moderate blood, moderate leukocyte esterase, and many bacteria. Patient on day 4 of Rocephin 1g IV qD. Urine culture showed Fern albicans. Patient is asymptomatic and due to interaction of fluconazole with Dilantin, we will defer fungal treatment at this time. -Will discontinue Rocephin today. Patient has completed 4 days of antibiotic treatment for simple cystitis. (2) Clostridium difficile diarrhea Code(s): A04.72 - Enterocolitis due to Clostridium difficile, not specified as recurrent Status: Acute Plan: Nursing staff reported up to 8 liquid bowel movements on 01/06/18. Patient was found to be positive for C.diff on 01/07. Rectal tube placed, laxative/stool softeners held, Vancomycin per G-tube started and Lactobacillus given 3 times daily. Small amount of liquid stool in rectal tube reservoir this morning. -Plan to discontinue rectal tube once liquid stool no longer passes -Day 4 Vancomycin per G-tube 125 mg 4 times daily per protocol -Lactobacillus given to assist with gut rod (3) Sacral pressure ulcer Code(s): L89.159 - Pressure ulcer of sacral region, unspecified stage Status: Acute Plan: Patient found to have stage IV pressure ulcer of the sacrum. -Nursing to rotate patient per protocol -Wound care consulted, appreciate recommendations (4) Acute CVA (cerebrovascular accident) Code(s): I63.9 - Cerebral infarction, unspecified Status: Acute Plan: Patient with new ischemic infarct, while on anticoagulation seen on CT head 01/03. Possibly this finding on CT on 01/03 due to new infarct or associated with extension of possible infarct on admission date which is now visible on CT scan. Will not be able to determine as patient was unable to have MRI on admission. Regardless this is a large infarct and most recent CT from 01/08 shows further extension and some edema. The risk for this transitioning to hemorrhagic is high. Continue to hold anticoagulation. Neurology is following in this case. Her overall prognosis for meaningful recovery remains very poor. Patients family continue to desire aggressive care and management and are hopeful for a recovery to her baseline prior to admission. - If/When to restart anticoagulation per neurology. Continue supportive care with PT/OT (5) Altered mental status, unspecified Code(s): R41.82 - Altered mental status, unspecified Status: Acute Plan: Patient's mentation has not returned to baseline due to new evolving right MCA infarct. This is likely her new baseline. -Neurology following started on Provigil 200mg PEG daily, Dilantin 130 mg liquid PEG BID, Dilantin 100mg liquid PEG @1300 and Divalproex Sprinkles 500mg PEG BID Eliqus stopped on 01/05 due to concern for hemorrhagic conversion of currently evolving ischemic CVA (6) Seizure Code(s): R56.9 - Unspecified convulsions Status: Acute Plan: Patient with history of seizure disorder. Witnessed seizure at longterm in a.m. day of admission. No seizures since then. * See Plan above. (7) Poor nutrition Code(s): E63.9 - Nutritional deficiency, unspecified Status: Acute Plan: Patient with poor nutritional status. PEG tube placed and tube feeds started . -Jevity 1.5 at goal rate of 60 ml/hr over 20 hours with 100ml free water flushes Q4H as patient will receive additional free water flushes with medications. (8) Palliative care patient Code(s): Z51.5 - Encounter for palliative care Status: Acute Plan: Palliative care consulted to assist with goals of care. Per family request, the family has repeatedly asked from the palliative care team to not contact them. Appreciate the palliative care team's assistance (9) History of CVA (cerebrovascular accident) Code(s): Z86.73 - Personal history of transient ischemic attack (TIA), and cerebral infarction without residual deficits Status: Chronic Plan: Patient with history of CVA x2. On admission, patient with altered mental status. Last known normal: Day prior to admission. -Please see plan as above (10) GERD (gastroesophageal reflux disease) Code(s): K21.9 - Gastro-esophageal reflux disease without esophagitis Status: Chronic Plan: Patient with history of GERD. Medications: * Pantoprazole IV. (11) Atrial fibrillation Code(s): I48.91 - Unspecified atrial fibrillation Status: Chronic Plan: Patient with history of A. fib. Patient with irregular irregular rhythm on exam. Cardiology consulted as above Medications: * Will continue home Eliquis once cleared from Neurology post CVA * Continue carvedilol (12) CHF (congestive heart failure) Code(s): I50.9 - Heart failure, unspecified Status: Chronic Plan: Patient with history of congestive heart failure. Caution IVF. Medications: * Continue home Lasix and Coreg. (13) Hypertension Code(s): I10 - Essential (primary) hypertension Status: Chronic Plan: Patient with history of hypertension. Per neurology, goal less than 120/80. Medications: * Continue home Coreg. * Clonidine as needed for BP >180/110 (14) Nutrition, metabolism, and development symptoms Code(s): R63.8 - Other symptoms and signs concerning food and fluid intake Status: Acute Plan: Fluid: * Free water flushes Q4H and with medications Electrolyte: * Monitor and replete as necessary. Nutrition: * Tube feeds only with dietary consult. Free water flushes Q4H and with medications (15) DVT prophylaxis Status: Acute Plan: Prophylaxis: * SCDs. <Ivis Calabrese - 01/11/18 21:35> (1) Oxygen desaturation Code(s): R09.02 - Hypoxemia Status: Acute (2) UTI (urinary tract infection) Code(s): N39.0 - Urinary tract infection, site not specified Status: Acute (3) Clostridium difficile diarrhea Code(s): A04.72 - Enterocolitis due to Clostridium difficile, not specified as recurrent Status: Acute (4) Sacral pressure ulcer Code(s): L89.159 - Pressure ulcer of sacral region, unspecified stage Status: Acute (5) Acute CVA (cerebrovascular accident) Code(s): I63.9 - Cerebral infarction, unspecified Status: Acute (6) Altered mental status, unspecified Code(s): R41.82 - Altered mental status, unspecified Status: Acute (7) Seizure Code(s): R56.9 - Unspecified convulsions Status: Acute (8) Poor nutrition Code(s): E63.9 - Nutritional deficiency, unspecified Status: Acute (9) Palliative care patient Code(s): Z51.5 - Encounter for palliative care Status: Acute (10) History of CVA (cerebrovascular accident) Code(s): Z86.73 - Personal history of transient ischemic attack (TIA), and cerebral infarction without residual deficits Status: Chronic (11) GERD (gastroesophageal reflux disease) Code(s): K21.9 - Gastro-esophageal reflux disease without esophagitis Status: Chronic (12) Atrial fibrillation Code(s): I48.91 - Unspecified atrial fibrillation Status: Chronic (13) CHF (congestive heart failure) Code(s): I50.9 - Heart failure, unspecified Status: Chronic (14) Hypertension Code(s): I10 - Essential (primary) hypertension Status: Chronic (15) Nutrition, metabolism, and development symptoms Code(s): R63.8 - Other symptoms and signs concerning food and fluid intake Status: Acute (16) DVT prophylaxis Status: Acute <Suzy Fischer - 01/12/18 12:12> - Assessment and Plan Patient is an 87 year old female who presents to the [facility] via EMS following a witnessed seizure. Patient with history of seizure disorder. Patient given Versed en-route to hospital and Keppra bolus in ED. Patient's GCS 8 at time of admission encounter. Patient originally admitted for evaluation and management of seizure versus CVA. New CVA in right MCA region found by head CT on 01/03 (likely the original inciting event for admission) with further evolution on 01/08. <Ivis Calabrese - 01/11/18 22:08> - Attending Attestation Patient seen and examined on 01/11/2018, discussed with resident team. I agree with assessment and management as documented and discussed with me. Nursing reports diarrhea has improved - less output from rectal tube. Add EZ pap today to prevent atelectasis. Await SNF placement - pt has bed at [facility], but family hoping for placement in [place]. There is one SNF in [place] that is still deciding if they will accept her or not. <Suzy Fischer - 01/12/18 12:12> <Ivis Calabrese - Last Filed: 01/11/18 21:35> (3) Sacral pressure ulcer Qualifiers: Pressure ulcer stage: stage 4 Qualified Code(s): L89.154 - Pressure ulcer of sacral region, stage 4 (5) Altered mental status, unspecified Qualifiers: Altered mental status type: unspecified Qualified Code(s): R41.82 - Altered mental status, unspecified <Suzy Fischer - Last Filed: 01/12/18 12:12> (4) Sacral pressure ulcer Qualifiers: Pressure ulcer stage: stage 4 Qualified Code(s): L89.154 - Pressure ulcer of sacral region, stage 4 (6) Altered mental status, unspecified Qualifiers: Altered mental status type: unspecified Qualified Code(s): R41.82 - Altered mental status, unspecified <Ivis Calabrese B - Last Filed: 01/11/18 21:35> (3) Sacral pressure ulcer Qualifiers: Pressure ulcer stage: stage 4 Qualified Code(s): L89.154 - Pressure ulcer of sacral region, stage 4 (5) Altered mental status, unspecified Qualifiers: Altered mental status type: unspecified Qualified Code(s): R41.82 - Altered mental status, unspecified <Suzy Fischer - Last Filed: 01/12/18 12:12> (4) Sacral pressure ulcer Qualifiers: Pressure ulcer stage: stage 4 Qualified Code(s): L89.154 - Pressure ulcer of sacral region, stage 4 (6) Altered mental status, unspecified Qualifiers: Altered mental status type: unspecified Qualified Code(s): R41.82 - Altered mental status, unspecified
[2018-01-12 06:19] LABS: Hematocrit 26.9 % (35.0-46.0); Hemoglobin 8.6 gm/dL (11.6-15.3); Mean Corpuscular HGB Conc 31.9 % (32.0-36.0); Mean Corpuscular Hemoglobin 30.6 pg (27.0-34.0); Mean Corpuscular Volume 96.2 fL (80.0-100.0); Mean Platelet Volume 7.7 fL (7.0-11.0); Platelet Count 299 th/mm3 (150-450); Red Cell Distribution Width 16.6 % (11.6-17.2); White Blood Count 5.8 th/mm3 (4.0-11.0)
[2018-01-12 06:27] LABS: Anion Gap 4 meq/L (5-15); Blood Urea Nitrogen 16 mg/dL (7-18); Calcium 8.1 mg/dL (8.5-10.1); Carbon Dioxide 29.9 meq/L (21.0-32.0); Chloride 114 meq/L (98-107); Glomerular Filtration Rate Greater Than 89 mL/min (>89); Glucose,Random 169 mg/dL (74-106); Potassium 4.8 meq/L (3.5-5.1); Sodium 148 meq/L (136-145)
[2018-01-12] MEDS: Insulin NovoLOG Aspart Correctional Sugar Inj SQ SCH ×4 (08:19→22:41)
[2018-01-12] MEDS: Phenytoin Susp 100 MG/4 ML UDC G-TUBE SCH ×3 (09:33→22:21)
[2018-01-12] MEDS: Modafinil 200 MG Tablet G-TUBE SCH (09:33)
[2018-01-12] MEDS: Furosemide 20 MG Tablet G-TUBE SCH (09:33)
[2018-01-12] MEDS: Potassium Chloride 10 MEQ ER Capsule PO SCH (09:34)
[2018-01-12] MEDS: Carvedilol 6.25 MG Tablet G-TUBE SCH ×2 (09:34→22:19)
[2018-01-12] MEDS: Divalproex 125 MG Sprinkles Capsule G-TUBE SCH ×2 (09:34→22:20)
[2018-01-12] MEDS: Multivitamin/Minerals Therapeutic Tablet PO SCH (09:34)
--- NOTE | 2018-01-12 11:10 | P.PNWCN ---
Wound Care Nurse Consult Description: Patient seen for follow up of sacral pressure injury Communicated with: RN Merlene Cerda and Doctor Recommendation: 1. Gently cleanse Sacral Stage 4 pressure injury with NS and gauze, pat dry. 2. Apply Santyl ointment to wound bed 2. Apply Maxorb II avoiding intact skin on periwound 3. Apply skin barrier film (Cavilon spray) to periwound 4. Cover with bordered gauze and date. REMOVE DRESSING USING ADHESIVE REMOVER Q3D AND PRN FOR SATURATION OR DISLODGEMENT 1. Cleanse partial thickness wound to L lower back area with normal saline and pat dry 2. Apply optifoam gentle border 4x4 dressing over wound. 3. Change dressing every 3 days and PRN if saturated dislodged. Wound/Pressure Injury - Wound Sacrum Wound Staging: Stage IV Wound Assessment: Ongoing Wound Type: Pressure Injury Is This a Chronic Wound: No Requested from Provider a Wound Care Consult: Yes (Patient is being followed by wound care) Length: 5.5 (~5.5cm) Width: 6 (~6cm) Depth: 0 (eschar and slough) Wound Bed Appearance: Necrotic, Yellow Wound Bed Appearance: Wound bed presents with ~50% thin black eschar, ~30%adherent thin non friable slough, and ~20% pink tissue. Surrounding Tissue Appearance: Erythema Surrounding Tissue Temperature: Warm Drainage Description: Serosanguinous Drainage Amount: Scant Drainage Odor: No Odor Dressing Status: Changed Cleansing Solution: Saline Primary Dressing: calcium alginate (Maxorb II) Cover Dressing: bordered gauze Wound Dressing Change Date: 01/12/18 Wound Margin Description: Well defined and open Left Lower Back Wound Staging: Stage II Wound Assessment: Ongoing Wound Type: Pressure Injury Is This a Chronic Wound: No Requested from Provider a Wound Care Consult: Yes (Wound care is following patient) Length: 2 (~2cm) Width: 2 (~2cm) Depth: 0.1 (~0.1cm) Wound Bed Appearance: Sausal Wound Bed Appearance: Wound bed presents as 100% pink partial thickness skin loss. Surrounding Tissue Appearance: Sausal Surrounding Tissue Temperature: Warm Drainage Description: Serosanguinous Drainage Amount: Scant Drainage Odor: No Odor Dressing Status: Reinforced Wound Margin Description: Well defined and open. - Additional Information Patient seen on for follow up of wound to sacral area per Doctor request. Patient is laying in regular bed upon automotive service writer's arrival. Patient is non responsive to verbal stimuli. Responds to pain pressure only by guarding and grunting. Patient was turned to L side with the assistance of OCHOA Boyd [address] [place] [address]. Patient is noted laying on cloth pad with disposable ultrasorb pad placed in staggered fashion under patient. Removed adhesive foam dressing to reveal full thickness wound to sacral area. Measurements, and description of sacral wound are noted above.Patient was previously seen by wound care and wound to sacrum was noted as a stage IV pressure injury at that time. Once a wound is identified as a stage IV it will continue to be classified as a stage IV. Patient has Dignisheild and external female catheter in place. There is also another adhesive foam dressing to the L of the sacral wound at 10 o'clock on the side of the lower back Peeled back adhesive foam dressing to reveal stage 2 pressure injury. Descriptions and measurements of wound to L lower back are also noted above. Adhesive foam dressing was applied back in place. Wound to Sacrum was cleansed with normal saline and patted dry. Applied Maxorb II ( calcium alginate to wound bed avoiding intact skin. Covered wound to sacrum with bordered gauze and secondary dressing. Patient was given a bath using medline bath cloths ultrasorb pad and cloth pad were removed replaced with two clean ultrasorb pads placed in staggered fashion. Rowenanet was then transferred to [facility] bed with the assistance of GARETT, OCHOA Blunt, english composition teacher Donna, and automotive service writer. Patient was then positioned off bottom with the total assistance of OCHOA Blunt and GARETT.Wound care recommendations are noted above
--- NOTE | 2018-01-12 11:48 | XR ---
EXAM DATE: 01/12/2018 11:29 AM EDT AGE/SEX: 87 years / Female INDICATIONS: Shortness of breath. CLINICAL DATA: This is the patient's subsequent encounter. Patient reports that signs and symptoms h ave been present for 3 days and indicates a pain score of Nonresponsive. MEDICAL/SURGICAL HISTORY: . Hypertension. Congestive heart failure. CVA. Left sided weakness. D ementia. Seizures. Arthritis. . Hysterectomy. Cervical fusion. Right hip replacement. COMPARISON: C, CHEST 1V SINGLE AP, 01/07/2018. . FINDINGS: Pacemaker on left. Moderate consolidative changes left base. Minimal pleural effusion on the right. H eart remains enlarged. CONCLUSION: Moderate consolidative changes left base that have progressed in the interval with some trace broncho grams. Electronically signed by: Reji Plummer MD 01/12/2018 11:46 AM EDT
--- NOTE | 2018-01-12 12:09 | P.PNFP ---
Subjective Interval history: Patient seen and examined this morning. No acute events overnight per nursing staff. Patient remains nonverbal on exam, but is arousable during exam with manipulation of her extremities. No significant neurological/mental status change from prior exams. Family currently not at bedside. Nursing staff did report that this morning her oxygen saturation was in the 80s while on room air and was then started on 2 L nasal cannula. Staff also reports that blood pressure this morning decreased to 80s systolic, but has since increased. Of note, medical team called patient's healthcare surrogate (Kaci Koenig at [phone]) to discuss Mrs. Baxter's updates. Per her report, she has discussed the course with Dr. Carolina, neurology, who recommends monitoring for the "next week or so" as her CVA has worsened per the most recent CT. She goes on to state that he would not recommend restarting her anticoagulation due to her most recent extensive CVA. She also has been in touch with case management, however she reports having difficulty finding accepting facilities due to her isolation status with clostridium difficile. <Ananda Ribera H - 01/12/18 12:48> Results - Labs Result diagrams: 01/12/18 05:55 01/12/18 05:55 <Suzy Fischer - 01/12/18 20:11> Abnormal lab results 01/11/18 01/12/18 01/12/18 Range/Units 21:20 05:55 05:55 RBC 2.80 L (4.00-5.30) mil/mm3 Hgb 8.6 L (11.6-15.3) gm/dL Hct 26.9 L (35.0-46.0) % MCHC 31.9 L (32.0-36.0) % Sodium 148 H (136-145) meq/L Chloride 114 H (98-107) meq/L Anion Gap 4 L (5-15) meq/L Creatinine 0.40 L (0.50-1.00) mg/dL POC Glucose 172 H (68-110) mg/dl Random Glucose 169 H (74-106) mg/dL Calcium 8.1 L (8.5-10.1) mg/dL 01/12/18 01/12/18 01/12/18 Range/Units 07:33 13:42 18:00 RBC (4.00-5.30) mil/mm3 Hgb (11.6-15.3) gm/dL Hct (35.0-46.0) % MCHC (32.0-36.0) % Sodium (136-145) meq/L Chloride (98-107) meq/L Anion Gap (5-15) meq/L Creatinine (0.50-1.00) mg/dL POC Glucose 172 H 183 H 235 H (68-110) mg/dl Random Glucose (74-106) mg/dL Calcium (8.5-10.1) mg/dL Short CBC 01/12/18 Range/Units 05:55 WBC 5.8 (4.0-11.0) th/mm3 Hgb 8.6 L (11.6-15.3) gm/dL Hct 26.9 L (35.0-46.0) % Plt Count 299 (150-450) th/mm3 BMP 01/12/18 05:55 Sodium 148 H Potassium 4.8 Chloride 114 H Carbon Dioxide 29.9 BUN 16 Creatinine 0.40 L Calcium 8.1 L <Suzy Fischer - 01/12/18 20:11> Abnormal lab results 01/11/18 01/11/18 01/11/18 Range/Units 13:05 17:51 21:20 RBC (4.00-5.30) mil/mm3 Hgb (11.6-15.3) gm/dL Hct (35.0-46.0) % MCHC (32.0-36.0) % Sodium (136-145) meq/L Chloride (98-107) meq/L Anion Gap (5-15) meq/L Creatinine (0.50-1.00) mg/dL POC Glucose 220 H 156 H 172 H (68-110) mg/dl Random Glucose (74-106) mg/dL Calcium (8.5-10.1) mg/dL 01/12/18 01/12/18 01/12/18 Range/Units 05:55 05:55 07:33 RBC 2.80 L (4.00-5.30) mil/mm3 Hgb 8.6 L (11.6-15.3) gm/dL Hct 26.9 L (35.0-46.0) % MCHC 31.9 L (32.0-36.0) % Sodium 148 H (136-145) meq/L Chloride 114 H (98-107) meq/L Anion Gap 4 L (5-15) meq/L Creatinine 0.40 L (0.50-1.00) mg/dL POC Glucose 172 H (68-110) mg/dl Random Glucose 169 H (74-106) mg/dL Calcium 8.1 L (8.5-10.1) mg/dL Short CBC 01/12/18 Range/Units 05:55 WBC 5.8 (4.0-11.0) th/mm3 Hgb 8.6 L (11.6-15.3) gm/dL Hct 26.9 L (35.0-46.0) % Plt Count 299 (150-450) th/mm3 BMP 01/12/18 05:55 Sodium 148 H Potassium 4.8 Chloride 114 H Carbon Dioxide 29.9 BUN 16 Creatinine 0.40 L Calcium 8.1 L <Ananda Ribera H - 01/12/18 12:09> - Imaging Impressions Chest X-Ray 01/12/18 00:00 CONCLUSION: Moderate consolidative changes left base that have progressed in the interval with some trace bronchograms. <Suzy Fischer - 01/12/18 20:11> Physical Exam Vital signs: Vital Signs 01/11/18 21:30 01/12/18 01:40 01/12/18 05:00 Temperature 98.7 F 97.6 F 99 F Pulse Rate 23 L 88 67 Respiratory Rate 23 24 Blood Pressure 120/69 112/90 Pulse Oximetry 93 L 93 L 91 L 01/12/18 08:08 01/12/18 09:00 01/12/18 11:42 Temperature 97.9 F Pulse Rate 99 H 71 99 H Respiratory Rate 18 19 Blood Pressure 95/53 L Pulse Oximetry 93 L 01/12/18 12:49 01/12/18 12:52 01/12/18 16:11 Temperature 97.9 F 97.4 F L 98.5 F Pulse Rate 99 H 71 56 L Respiratory Rate 18 16 18 Blood Pressure 95/53 L 106/56 L 117/68 Pulse Oximetry 93 L 100 90 L Intake & Output 01/12/18 01/12/18 01/13/18 06:59 18:59 06:59 Intake Total 0 / 0 917 / 917 Output Total 0 / 0 0 / 0 Balance 0 / 0 917 / 917 Weight 55 kg Intake: Oral 0 / 0 0 / 0 Tube Feeding 480 / 480 Tube Irrigant 90 / 90 Water Bolus Amount 0 / 0 Other 347 / 347 Output: Urine 0 / 0 0 / 0 Stool 0 / 0 0 / 0 Other: # Voids 1 # Incontinent Voids 3 Date of Last Bowel Movement 01/11/18 01/11/18 # Bowel Movements 0 0 # Incontinent Bowel Movements 6 <Suzy Fischer - 01/12/18 20:11> Vital Signs 01/11/18 12:00 01/11/18 16:00 01/11/18 20:00 Temperature 97.8 F 97.5 F L Pulse Rate 81 77 87 Respiratory Rate 20 20 Blood Pressure 108/61 113/65 Pulse Oximetry 98 99 01/11/18 21:30 01/12/18 01:40 01/12/18 05:00 Temperature 98.7 F 97.6 F 99 F Pulse Rate 23 L 88 67 Respiratory Rate 23 24 Blood Pressure 120/69 112/90 Pulse Oximetry 93 L 93 L 91 L 01/12/18 08:08 Temperature 97.9 F Pulse Rate 99 H Respiratory Rate 18 Blood Pressure 95/53 L Pulse Oximetry 93 L Intake & Output 01/11/18 01/12/18 01/12/18 18:59 06:59 18:59 Intake Total 0 / 0 Output Total 0 / 0 Balance 0 / 0 Weight 55 kg Intake: Oral 0 / 0 Output: Urine 0 / 0 Stool 0 / 0 Other: Date of Last Bowel Movement 01/09/18 01/11/18 # Bowel Movements 0 <Ananda Ribera H - 01/12/18 12:09> Narrative: GENERAL: Frail appearing elderly woman lying nonresponsive except to tactile stimuli. Patient will not open eyes upon verbal cues and does not follow commands. SKIN: Cool and dry on upper extremities, abdomen, and lower extremities. PEG tube appears clean and intact without skin breakdown or signs of infection. Sacral Wound: Wound care dressing covering a stage IV sacral pressure ulcer measuring approximately 7 x 9 cm with surrounding erythema without drainage or hemorrhage appreciated. HEENT: Atraumatic, normocephalic. Patient unable to follow commands to examine eyes or mouth. No visible JVD or LAD appreciated. CARDIOVASCULAR: Irregular rate and rhythm without obvious murmurs, gallops, or rubs. 2+ pulses in all four extremities. RESPIRATORY: Clear to auscultation anteriorly. No obvious CRW. No increased work of breathing at this time. GASTROINTESTINAL: Abdomen soft, non-tender, nondistended with positive bowel sounds. No masses appreciated. PEG tube in place without signs of abnormalities with abdominal binder. MUSCULOSKELETAL: No cyanosis. No calf tenderness. Upper and lower extremity appears improved from prior exams. NEURO/PSYCH: AAO1. GCS 9 (E2V2M5) Patient unable to communicate which is her baseline. Full neurologic evaluation unable to be completed due to mental status. <RiberaAnanda H - 01/12/18 12:09> Assessment and Plan - Assessment (1) Oxygen desaturation Code(s): R09.02 - Hypoxemia Status: Acute (2) UTI (urinary tract infection) Code(s): N39.0 - Urinary tract infection, site not specified Status: Acute (3) Clostridium difficile diarrhea Code(s): A04.72 - Enterocolitis due to Clostridium difficile, not specified as recurrent Status: Acute (4) Sacral pressure ulcer Code(s): L89.159 - Pressure ulcer of sacral region, unspecified stage Status: Acute (5) Acute CVA (cerebrovascular accident) Code(s): I63.9 - Cerebral infarction, unspecified Status: Acute (6) Altered mental status, unspecified Code(s): R41.82 - Altered mental status, unspecified Status: Acute (7) Seizure Code(s): R56.9 - Unspecified convulsions Status: Acute (8) Poor nutrition Code(s): E63.9 - Nutritional deficiency, unspecified Status: Acute (9) Palliative care patient Code(s): Z51.5 - Encounter for palliative care Status: Acute (10) History of CVA (cerebrovascular accident) Code(s): Z86.73 - Personal history of transient ischemic attack (TIA), and cerebral infarction without residual deficits Status: Chronic (11) GERD (gastroesophageal reflux disease) Code(s): K21.9 - Gastro-esophageal reflux disease without esophagitis Status: Chronic (12) Atrial fibrillation Code(s): I48.91 - Unspecified atrial fibrillation Status: Chronic (13) CHF (congestive heart failure) Code(s): I50.9 - Heart failure, unspecified Status: Chronic (14) Hypertension Code(s): I10 - Essential (primary) hypertension Status: Chronic (15) Nutrition, metabolism, and development symptoms Code(s): R63.8 - Other symptoms and signs concerning food and fluid intake Status: Acute (16) DVT prophylaxis Status: Acute <Suzy Fischer - 01/12/18 20:11> (1) Oxygen desaturation Code(s): R09.02 - Hypoxemia Status: Acute Plan: Patient with desaturation to the 80s with hypotension to the 80s systolic this morning. Unable to fully evaluate patient due to neuro status at this time. Patient at high risk of aspiration due to tube feeding and being bedbound. Patient currently does not meet SIRS/sepsis criteria, however patient is in a delicate state due to her debilitating medical conditions. Low threshold to fully evaluate for possible infectious process. -2 L nasal cannula applied, continue to monitor and titrate as necessary -Chest x-ray: Ordered -Continue to closely monitor blood pressure (monitor IV fluid administration to avoid fluid overload) (2) UTI (urinary tract infection) Code(s): N39.0 - Urinary tract infection, site not specified Status: Acute Plan: Pt spiked a low grade fever of 100.8F on 01/07/18. She has been afebrile since. UA shows moderate blood, moderate leukocyte esterase, and many bacteria. Patient on day 4 of Rocephin 1g IV qD. Urine culture showed Fern albicans. Patient is asymptomatic and due to interaction of fluconazole with Dilantin. Medical team to contact Neurology to discuss possible treatment of candiduria with Fluconazole vs. Micafungin in relation to her Dilantin levels. -Rocephin 01/07-01/11 (3) Clostridium difficile diarrhea Code(s): A04.72 - Enterocolitis due to Clostridium difficile, not specified as recurrent Status: Acute Plan: Nursing staff reported up to 8 liquid bowel movements on 01/06/18. Patient was found to be positive for C.diff on 01/07. Rectal tube placed, laxative/stool softeners held, Vancomycin per G-tube started and Lactobacillus given 3 times daily. Small amount of liquid stool in rectal tube reservoir this morning. -Rectal tube discontinued as liquid stool has resolved -Vancomycin per G-tube 125 mg 4 times daily per protocol -Lactobacillus given to assist with gut rod (4) Sacral pressure ulcer Code(s): L89.159 - Pressure ulcer of sacral region, unspecified stage Status: Acute Plan: Patient found to have stage IV pressure ulcer of the sacrum. -Nursing to rotate patient per protocol. -Wound care consulted, appreciate recommendations. Nursing staff to contact wound care to assist with appropriate bedding for patient due to sacral wound. -Due to worsening ulceration, consult placed to wound care physician for further recommendations. (5) Acute CVA (cerebrovascular accident) Code(s): I63.9 - Cerebral infarction, unspecified Status: Acute Plan: Patient with new ischemic infarct, while on anticoagulation seen on CT head 01/03. Possibly this finding on CT on 01/03 due to new infarct or associated with extension of possible infarct on admission date which is now visible on CT scan. Will not be able to determine as patient was unable to have MRI on admission. Regardless this is a large infarct and most recent CT from 01/08 shows further extension and some edema. The risk for this transitioning to hemorrhagic is high. Continue to hold anticoagulation. Neurology is following in this case. Her overall prognosis for meaningful recovery remains very poor. Patients family continue to desire aggressive care and management and are hopeful for a recovery to her baseline prior to admission. - If/When to restart anticoagulation per neurology. -Continue supportive care with PT/OT (6) Altered mental status, unspecified Code(s): R41.82 - Altered mental status, unspecified Status: Acute Plan: Patient's mentation has not returned to baseline due to new evolving right MCA infarct. This is likely her new baseline. -Neurology following Started on Provigil 200mg PEG daily, Dilantin 130 mg liquid PEG BID, Dilantin 100mg liquid PEG @1300 and Divalproex Sprinkles 500mg PEG BID Eliqus stopped on 01/05 due to concern for hemorrhagic conversion of currently evolving ischemic CVA (7) Seizure Code(s): R56.9 - Unspecified convulsions Status: Acute Plan: Patient with history of seizure disorder. Witnessed seizure at [facility] in a.m. day of admission. No seizures reported during hospitalization. * See Plan above. (8) Poor nutrition Code(s): E63.9 - Nutritional deficiency, unspecified Status: Acute Plan: Patient with poor nutritional status. PEG tube placed and tube feeds started . -Jevity 1.5 at goal rate of 60 ml/hr over 20 hours with 100ml free water flushes Q4H as patient will receive additional free water flushes with medications. (9) Palliative care patient Code(s): Z51.5 - Encounter for palliative care Status: Acute Plan: Palliative care consulted to assist with goals of care. Per family request, the family has repeatedly asked from the palliative care team to not contact them. Appreciate the palliative care team's assistance (10) History of CVA (cerebrovascular accident) Code(s): Z86.73 - Personal history of transient ischemic attack (TIA), and cerebral infarction without residual deficits Status: Chronic Plan: Patient with history of CVA x2. On admission, patient with altered mental status. Last known normal: Day prior to admission. -Please see plan as above (11) GERD (gastroesophageal reflux disease) Code(s): K21.9 - Gastro-esophageal reflux disease without esophagitis Status: Chronic Plan: Patient with history of GERD. Medications: * Pantoprazole IV. (12) Atrial fibrillation Code(s): I48.91 - Unspecified atrial fibrillation Status: Chronic Plan: Patient with history of A. fib. Patient with irregular irregular rhythm on exam. Cardiology consulted as above Medications: * Will continue home Eliquis once cleared from Neurology post CVA * Continue carvedilol (13) CHF (congestive heart failure) Code(s): I50.9 - Heart failure, unspecified Status: Chronic Plan: Patient with history of congestive heart failure. Caution IVF. Medications: * Continue home Lasix and Coreg. (14) Hypertension Code(s): I10 - Essential (primary) hypertension Status: Chronic Plan: Patient with history of hypertension. Per neurology, goal less than 120/80. Medications: * Continue home Coreg. * Clonidine as needed for BP >180/110 (15) Nutrition, metabolism, and development symptoms Code(s): R63.8 - Other symptoms and signs concerning food and fluid intake Status: Acute Plan: Fluid: * Free water flushes Q4H and with medications. Monitor IVF to avoid fluid overload. Electrolyte: * Monitor and replete as necessary. Nutrition: * Tube feeds only with dietary consult. Free water flushes Q4H and with medications (16) DVT prophylaxis Status: Acute Plan: Prophylaxis: * SCDs. <Ananda Ribera - 01/12/18 17:21> - Assessment and Plan Patient is an 87 year old female who presents to the [facility] via EMS following a witnessed seizure. Patient with history of seizure disorder. Patient given Versed en-route to hospital and Keppra bolus in ED. Patient's GCS 8 at time of admission encounter. Patient originally admitted for evaluation and management of seizure versus CVA. New CVA in right MCA region found by head CT on 01/03 (likely the original inciting event for admission) with further evolution on 01/08. <Ananda Ribera - 01/12/18 12:09> - Attending Attestation Patient seen, examined today, and discussed with resident team. I agree with assessment and management as documented and discussed with me. Pt remains unresponsive; moves right arm to sternal rub but does not open eyes. Sacral wound examined today with resident team as documented in chart. CT head tomorrow, to monitor for extension of stroke. In addition, pt will need repeat CT head in 2 weeks, which can be done as an outpatient. Based on CT in 2 weeks, decision re: anticoagulation can be made at that time. Discharge planning will depend on CT head tomorrow. Pt has been denied at all [place] SNFs contacted. Will need to discuss with family regarding her acceptance ONLY at [facility] locally and NOWHERE in [place], once CT head is completed tomorrow. <Suzy Fischer - 01/12/18 20:11> <Ananda Ribera - Last Filed: 01/12/18 17:21> (4) Sacral pressure ulcer Qualifiers: Pressure ulcer stage: stage 4 Qualified Code(s): L89.154 - Pressure ulcer of sacral region, stage 4 (6) Altered mental status, unspecified Qualifiers: Altered mental status type: unspecified Qualified Code(s): R41.82 - Altered mental status, unspecified <Vey,Suzy - Last Filed: 01/12/18 20:11> (4) Sacral pressure ulcer Qualifiers: Pressure ulcer stage: stage 4 Qualified Code(s): L89.154 - Pressure ulcer of sacral region, stage 4 (6) Altered mental status, unspecified Qualifiers: Altered mental status type: unspecified Qualified Code(s): R41.82 - Altered mental status, unspecified <Ananda Ribera - Last Filed: 01/12/18 17:21> (4) Sacral pressure ulcer Qualifiers: Pressure ulcer stage: stage 4 Qualified Code(s): L89.154 - Pressure ulcer of sacral region, stage 4 (6) Altered mental status, unspecified Qualifiers: Altered mental status type: unspecified Qualified Code(s): R41.82 - Altered mental status, unspecified <Vey,Suzy - Last Filed: 01/12/18 20:11> (4) Sacral pressure ulcer Qualifiers: Pressure ulcer stage: stage 4 Qualified Code(s): L89.154 - Pressure ulcer of sacral region, stage 4 (6) Altered mental status, unspecified Qualifiers: Altered mental status type: unspecified Qualified Code(s): R41.82 - Altered mental status, unspecified
[2018-01-12] MEDS: Pantoprazole Inj 40 MG Vial IV.PUSH SCH (12:33)
--- NOTE | 2018-01-12 20:57 | P.PNNEU ---
Subjective Subjective Comments: No acute events reported Active Medications: Active Medications Albuterol (Duoneb Neb (Prn)) 1 ampul INH Q6HR NEB PRN PRN Reason: SOB/WHEEZING Last Admin: 01/12/18 11:42 Dose: 1 ampul Aspirin (Ecotrin) 325 mg PO DAILY [facility] [place] Last Admin: 01/12/18 09:33 Dose: 325 mg Atorvastatin Calcium (Lipitor) 20 mg G-TUBE HS [facility] [place] Last Admin: 01/11/18 21:17 Dose: 20 mg Carvedilol (Coreg) 6.25 mg G-TUBE Q12HR [facility] [place] Last Admin: 01/12/18 09:34 Dose: 6.25 mg Clonidine HCl (Catapres) 0.1 mg PO Q6H PRN PRN Reason: SBP>180, DBP>110 Dextrose (D50w Vial) 50 ml IV.PUSH UNSCH PRN PRN Reason: HYPOGLYCEMIA-SEE COMMENTS Divalproex Sodium (Depakote Sprinkles) 500 mg G-TUBE BID [facility] [place] Last Admin: 01/12/18 09:34 Dose: 500 mg Fluconazole (Diflucan) 200 mg PO DAILY@1800 [facility] [place] Last Admin: 01/12/18 17:55 Dose: 200 mg Furosemide (Lasix) 20 mg G-TUBE DAILY [facility] [place] Last Admin: 01/12/18 09:33 Dose: 20 mg Glucagon (Glucagon Inj) 1 mg OTHER UNSCH PRN PRN Reason: for Hypoglycemia Protocol Insulin Aspart (Novolog Insulin Suppl Scale Inj) 0 unit SQ ACHS [facility] [place]; Protocol Last Admin: 01/12/18 18:12 Dose: 5 unit Lactobacillus Acidophilus (Lactinex Pkt) 1 gm G-TUBE TID [facility] [place] Last Admin: 01/12/18 17:55 Dose: 1 gm Lorazepam (Ativan Inj) 0.5 mg IV.PUSH HS PRN PRN Reason: SLEEP Miscellaneous (Pill Splitter) 1 each OTHER UNSCH PRN PRN Reason: SEE LABEL COMMENTS Modafinil (Provigil) 200 mg G-TUBE DAILY [facility] [place] Last Admin: 01/12/18 09:33 Dose: 200 mg Multivitamins/Minerals (Theragran-M) 1 tab PO DAILY [facility] [place] Last Admin: 01/12/18 09:34 Dose: 1 tab Pantoprazole Sodium (Protonix Inj) 40 mg IV.PUSH Q24H [facility] [place] Last Admin: 01/12/18 12:33 Dose: 40 mg Phenytoin (Dilantin Liq) 130 mg G-TUBE BID [facility] [place] Last Admin: 01/12/18 09:33 Dose: 130 mg Phenytoin (Dilantin Liq) 100 mg G-TUBE DAILY@1300 [facility] [place] Last Admin: 01/12/18 13:00 Dose: 100 mg Potassium Chloride (Kcl) 10 meq PO DAILY [facility] [place] Last Admin: 01/12/18 09:34 Dose: 10 meq Sodium Chloride (Ns Flush) 2 ml IV.FLUSH BID [facility] [place] Last Admin: 01/12/18 09:34 Dose: 2 ml Sodium Chloride (Ns Flush) 2 ml IV.FLUSH UNSCH PRN PRN Reason: FLUSH AFTER USING IV ACCESS Last Admin: 01/07/18 22:19 Dose: 2 ml Vancomycin HCl (Vancomycin Po) 125 mg NG/OG QID [facility] [place] Stop: 01/18/18 12:59 Last Admin: 01/12/18 17:56 Dose: 125 mg Allergies/Adverse Reactions: Allergies Allergy/AdvReac Type Severity Reaction Status Date / Time acetaminophen Allergy Severe nausea and Verified 01/01/18 11:09 vomiting propoxyphene Allergy Severe nausea and Verified 01/01/18 11:09 vomiting MRI PRECAUTION Allergy Severe UNKNOWN Uncoded 01/01/18 11:09 Physical Exam Vital signs: Vital Signs 01/11/18 21:30 01/12/18 01:40 01/12/18 05:00 Temperature 98.7 F 97.6 F 99 F Pulse Rate 23 L 88 67 Respiratory Rate 23 24 Blood Pressure 120/69 112/90 Pulse Oximetry 93 L 93 L 91 L 01/12/18 08:08 01/12/18 09:00 01/12/18 11:42 Temperature 97.9 F Pulse Rate 99 H 71 99 H Respiratory Rate 18 19 Blood Pressure 95/53 L Pulse Oximetry 93 L 01/12/18 12:49 01/12/18 12:52 01/12/18 16:11 Temperature 97.9 F 97.4 F L 98.5 F Pulse Rate 99 H 71 56 L Respiratory Rate 18 16 18 Blood Pressure 95/53 L 106/56 L 117/68 Pulse Oximetry 93 L 100 90 L 01/12/18 20:00 Temperature 97.7 F Pulse Rate 78 Respiratory Rate 18 Blood Pressure 108/52 L Pulse Oximetry 98 Intake & Output 01/12/18 01/12/18 01/13/18 06:59 18:59 06:59 Intake Total 0 / 0 917 / 917 Output Total 0 / 0 0 / 0 Balance 0 / 0 917 / 917 Weight 55 kg Intake: Oral 0 / 0 0 / 0 Tube Feeding 480 / 480 Tube Irrigant 90 / 90 Water Bolus Amount 0 / 0 Other 347 / 347 Output: Urine 0 / 0 0 / 0 Stool 0 / 0 0 / 0 Other: # Voids 1 # Incontinent Voids 3 Date of Last Bowel Movement 01/11/18 01/11/18 # Bowel Movements 0 0 # Incontinent Bowel Movements 6 - Routine Neurological Exam nonresponsive to voice or tactile stim Pupils 2 mm symmetric and reactive extraoccular motility normal to occulocephalic maneuvers MOTOR--no spontaneous limb movement. Flaccid tone LUE. Slight increase tone RUE Objective Laboratory Results - last 24 hr 01/11/18 01/12/18 01/12/18 21:20 05:55 05:55 WBC 5.8 RBC 2.80 L Hgb 8.6 L Hct 26.9 L MCV 96.2 MCH 30.6 MCHC 31.9 L RDW 16.6 Plt Count 299 MPV 7.7 Sodium 148 H Potassium 4.8 Chloride 114 H Carbon Dioxide 29.9 Anion Gap 4 L BUN 16 Creatinine 0.40 L Estimated GFR Greater than 89 POC Glucose 172 H Random Glucose 169 H Calcium 8.1 L Phenytoin 01/12/18 01/12/18 01/12/18 07:33 10:55 13:42 WBC RBC Hgb Hct MCV MCH MCHC RDW Plt Count MPV Sodium Potassium Chloride Carbon Dioxide Anion Gap BUN Creatinine Estimated GFR POC Glucose 172 H 183 H Random Glucose Calcium Phenytoin 18.9 01/12/18 18:00 WBC RBC Hgb Hct MCV MCH MCHC RDW Plt Count MPV Sodium Potassium Chloride Carbon Dioxide Anion Gap BUN Creatinine Estimated GFR POC Glucose 235 H Random Glucose Calcium Phenytoin Microbiology 01/08/18 22:04 Aerobic Blood Culture - Preliminary Blood - Peripheral No growth in 4 days Anaerobic Blood Culture - Preliminary No growth in 4 days 01/08/18 22:04 Aerobic Blood Culture - Preliminary Blood - Peripheral No growth in 4 days Anaerobic Blood Culture - Preliminary No growth in 4 days Review/Management - Diagnosis (1) Acute right MCA stroke Code(s): I63.511 - Cerebral infarction due to unspecified occlusion or stenosis of right middle cerebral artery Status: Acute Current Visit: Yes (2) Chronic right arterial ischemic stroke, MCA (middle cerebral artery) Code(s): I69.30 - Unspecified sequelae of cerebral infarction Status: Acute Current Visit: Yes (3) Hypertension Code(s): I10 - Essential (primary) hypertension Status: Chronic Current Visit: Yes - Review/Management Plan: Hold anticoagulation due to large size of stroke due to hemorrhagic risk prognosis guarded given large size of infarct. recheck CT brain tomorrow to follow up on the edema
[2018-01-13] MEDS: Insulin NovoLOG Aspart Correctional Sugar Inj SQ SCH ×4 (08:43→21:00)
[2018-01-13] MEDS: Phenytoin Susp 100 MG/4 ML UDC G-TUBE SCH ×3 (08:45→21:41)
[2018-01-13] MEDS: Divalproex 125 MG Sprinkles Capsule G-TUBE SCH ×2 (08:46→21:43)
[2018-01-13] MEDS: Carvedilol 6.25 MG Tablet G-TUBE SCH ×3 (08:47→21:46)
[2018-01-13] MEDS: Modafinil 200 MG Tablet G-TUBE SCH (08:47)
[2018-01-13] MEDS: Potassium Chloride 10 MEQ ER Capsule PO SCH (08:48)
[2018-01-13] MEDS: Furosemide 20 MG Tablet G-TUBE SCH (08:48)
[2018-01-13] MEDS: Multivitamin/Minerals Therapeutic Tablet PO SCH (08:49)
[2018-01-13 10:24] LABS: Hematocrit 29.4 % (35.0-46.0); Mean Corpuscular Hemoglobin 29.7 pg (27.0-34.0); Mean Corpuscular Volume 97.2 fL (80.0-100.0); Mean Platelet Volume 7.9 fL (7.0-11.0); Platelet Count 330 th/mm3 (150-450); Red Blood Count 3.02 mil/mm3 (4.00-5.30); Red Cell Distribution Width 17.2 % (11.6-17.2); White Blood Count 6.6 th/mm3 (4.0-11.0)
[2018-01-13 10:28] LABS: Mean Corpuscular HGB Conc 30.6 % (32.0-36.0)
--- NOTE | 2018-01-13 10:42 | CT ---
EXAM DATE: 01/13/2018 10:35 AM EDT AGE/SEX: 87 years / Female INDICATIONS: Altered mental status. CLINICAL DATA: This is the patient's subsequent encounter. Patient reports that signs and symptoms h ave been present for 4 - 6 days and indicates a pain score of Nonresponsive. MEDICAL/SURGICAL HISTORY: Cerebrovascular disease. Cardiovascular disease. Hypertension. stroke None. RADIATION DOSE: 56.35 CTDI (mGy) COMPARISON: [facility] [place], CT HEAD W/O CONTRAST, 01/08/2018. . TECHNIQUE: CT of the head without contrast. Using automated exposure control and adjustment of the mA and/or kV according to patient size, radiation dose was kept as low as reasonably achievable to ob tain optimal diagnostic quality images. DICOM format image data is available electronically for revi ew and comparison. FINDINGS: There is continued evolution of ischemic infarct involving the entire right middle cerebral artery di stribution as well as a portion of the right occipital lobe. There is minimal mass effect but no sign ificant midline shift. There is extensive periventricular hypodensity compatible with chronic ischemi c change significantly more than expected for patient this age. There is old infarct involving the le ft cerebellar hemisphere. CONCLUSION: 1. Continued evolution of right middle cerebral artery distribution infarct without evidence of acut e hemorrhage Electronically signed by: Gerhard Chaudhary MD 01/13/2018 10:41 AM EDT
[2018-01-13 10:56] LABS: Anion Gap 5 meq/L (5-15); Blood Urea Nitrogen 13 mg/dL (7-18); Calcium 8.5 mg/dL (8.5-10.1); Carbon Dioxide 31.7 meq/L (21.0-32.0); Chloride 111 meq/L (98-107); Glomerular Filtration Rate Greater Than 89 mL/min (>89); Glucose,Random 149 mg/dL (74-106); Potassium 4.9 meq/L (3.5-5.1); Sodium 148 meq/L (136-145)
--- NOTE | 2018-01-13 11:42 | P.PNPAL ---
Attempted to see Ms. Baxter however she is sleeping. Did not disturb as she is resting comfortably. RN in room. Spoke with RN. No new concerns. Case management continues to work on placement with patient's family. Family has requested palliative care not phone them. They have confirmed they have palliative care contact information. Palliative care remains available as needed.
--- NOTE | 2018-01-13 11:47 | P.PNFP ---
Subjective Interval history: Patient seen and examined. Patient is minimally arousable, only groaning to her name and sternal rub. No acute events overnight per nursing staff. No significant neurological/mental status change from prior exams. Family currently not at bedside. Spoke to case management, who state that [facility] is unable to accommodate the patient at this time. Kalin Shukla continues to save a bed for her at this time. <Ivis Calabrese - 01/13/18 19:40> Results - Labs Result diagrams: 01/13/18 09:40 01/13/18 09:40 <Suzy Fischer - 01/13/18 20:52> Abnormal lab results 01/12/18 01/13/18 01/13/18 Range/Units 22:25 08:29 09:40 RBC 3.02 L (4.00-5.30) mil/mm3 Hgb 9.0 L (11.6-15.3) gm/dL Hct 29.4 L (35.0-46.0) % MCHC 30.6 L (32.0-36.0) % Sodium (136-145) meq/L Chloride (98-107) meq/L Creatinine (0.50-1.00) mg/dL POC Glucose 235 H 159 H (68-110) mg/dl Random Glucose (74-106) mg/dL 01/13/18 01/13/18 01/13/18 Range/Units 09:40 11:59 16:49 RBC (4.00-5.30) mil/mm3 Hgb (11.6-15.3) gm/dL Hct (35.0-46.0) % MCHC (32.0-36.0) % Sodium 148 H (136-145) meq/L Chloride 111 H (98-107) meq/L Creatinine 0.31 L (0.50-1.00) mg/dL POC Glucose 124 H 187 H (68-110) mg/dl Random Glucose 149 H (74-106) mg/dL Short CBC 01/13/18 Range/Units 09:40 WBC 6.6 (4.0-11.0) th/mm3 Hgb 9.0 L (11.6-15.3) gm/dL Hct 29.4 L (35.0-46.0) % Plt Count 330 (150-450) th/mm3 [facility] 01/13/18 09:40 Sodium 148 H Potassium 4.9 Chloride 111 H Carbon Dioxide 31.7 BUN 13 Creatinine 0.31 L Calcium 8.5 <KarylaloSuzy - 01/13/18 20:52> Abnormal lab results 01/12/18 01/12/18 01/12/18 Range/Units 13:42 18:00 22:25 RBC (4.00-5.30) mil/mm3 Hgb (11.6-15.3) gm/dL Hct (35.0-46.0) % MCHC (32.0-36.0) % Sodium (136-145) meq/L Chloride (98-107) meq/L Creatinine (0.50-1.00) mg/dL POC Glucose 183 H 235 H 235 H (68-110) mg/dl Random Glucose (74-106) mg/dL 01/13/18 01/13/18 01/13/18 Range/Units 08:29 09:40 09:40 RBC 3.02 L (4.00-5.30) mil/mm3 Hgb 9.0 L (11.6-15.3) gm/dL Hct 29.4 L (35.0-46.0) % MCHC 30.6 L (32.0-36.0) % Sodium 148 H (136-145) meq/L Chloride 111 H (98-107) meq/L Creatinine 0.31 L (0.50-1.00) mg/dL POC Glucose 159 H (68-110) mg/dl Random Glucose 149 H (74-106) mg/dL Short CBC 01/13/18 Range/Units 09:40 WBC 6.6 (4.0-11.0) th/mm3 Hgb 9.0 L (11.6-15.3) gm/dL Hct 29.4 L (35.0-46.0) % Plt Count 330 (150-450) th/mm3 [facility] 01/13/18 09:40 Sodium 148 H Potassium 4.9 Chloride 111 H Carbon Dioxide 31.7 BUN 13 Creatinine 0.31 L Calcium 8.5 <Ivis Calabrese - 01/13/18 11:47> - Imaging Impressions Head CT 01/13/18 00:00 CONCLUSION: 1. Continued evolution of right middle cerebral artery distribution infarct without evidence of acute hemorrhage <Suzy Fischer - 01/13/18 20:52> Impressions Chest X-Ray 01/12/18 00:00 CONCLUSION: Moderate consolidative changes left base that have progressed in the interval with some trace bronchograms. Head CT 01/13/18 00:00 CONCLUSION: 1. Continued evolution of right middle cerebral artery distribution infarct without evidence of acute hemorrhage <Ivis Calabrese - 01/13/18 11:47> Physical Exam Vital signs: Vital Signs 01/13/18 00:00 01/13/18 02:28 01/13/18 04:00 Temperature 97.4 F L 97.2 F L Pulse Rate 59 L 85 Respiratory Rate 18 22 22 Blood Pressure 93/54 L 110/65 113/67 Pulse Oximetry 95 95 01/13/18 09:00 01/13/18 09:20 01/13/18 13:31 Temperature Pulse Rate 79 79 77 Respiratory Rate 16 16 Blood Pressure 116/61 100/55 L Pulse Oximetry 94 L 100 01/13/18 16:00 01/13/18 16:19 Temperature 98.6 F Pulse Rate 78 Respiratory Rate 18 Blood Pressure 99/59 L Pulse Oximetry 100 100 Intake & Output 01/13/18 01/13/18 01/14/18 06:59 18:59 06:59 Intake Total 2303 / 2303 398 / 398 Output Total 400 / 400 450 / 450 Balance 1903 / 1903 -450 / -450 398 / 398 Weight 67.3 kg Intake: Tube Feeding 2153 / 2153 398 / 398 Tube Irrigant 150 / 150 Output: Urine 400 / 400 450 / 450 Other: # Bowel Movements 1 <Suzy Fischer - 01/13/18 20:52> Vital Signs 01/12/18 12:49 01/12/18 12:52 01/12/18 16:11 Temperature 97.9 F 97.4 F L 98.5 F Pulse Rate 99 H 71 56 L Respiratory Rate 18 16 18 Blood Pressure 95/53 L 106/56 L 117/68 Pulse Oximetry 93 L 100 90 L 01/12/18 20:00 01/13/18 00:00 01/13/18 02:28 Temperature 97.7 F 97.4 F L Pulse Rate 78 59 L 85 Respiratory Rate 18 18 22 Blood Pressure 108/52 L 93/54 L 110/65 Pulse Oximetry 98 95 01/13/18 04:00 01/13/18 09:00 01/13/18 09:20 Temperature 97.2 F L Pulse Rate 79 79 Respiratory Rate 22 16 Blood Pressure 113/67 116/61 Pulse Oximetry 95 94 L Intake & Output 01/12/18 01/13/18 01/13/18 18:59 06:59 18:59 Intake Total 917 / 917 2303 / 2303 Output Total 0 / 0 400 / 400 Balance 917 / 917 1903 / 1903 Weight 67.3 kg Intake: Oral 0 / 0 Tube Feeding 480 / 480 2153 / 2153 Tube Irrigant 90 / 90 150 / 150 Water Bolus Amount 0 / 0 Other 347 / 347 Output: Urine 0 / 0 400 / 400 Stool 0 / 0 Other: # Voids 1 # Incontinent Voids 3 Date of Last Bowel Movement 01/11/18 # Bowel Movements 0 # Incontinent Bowel Movements 6 <Ivis Calabrese - 01/13/18 11:47> Narrative: Narrative: GENERAL: Frail appearing elderly woman lying nonresponsive except to tactile stimuli. Patient will not open eyes upon verbal cues and does not follow commands. SKIN: Cool and dry on upper extremities, abdomen, and lower extremities. PEG tube appears clean and intact without skin breakdown or signs of infection. Sacral Wound: Wound care dressing covering a stage IV sacral pressure ulcer measuring approximately 7 x 9 cm with surrounding erythema and 2 ulcer on left lower back without drainage or hemorrhage appreciated. HEENT: Atraumatic, normocephalic. Patient unable to follow commands to examine eyes or mouth. No visible JVD or LAD appreciated. CARDIOVASCULAR: Irregular rate and rhythm without obvious murmurs, gallops, or rubs. 2+ pulses in all four extremities. RESPIRATORY: Clear to auscultation anteriorly. No obvious CRW. No increased work of breathing at this time. GASTROINTESTINAL: Abdomen soft, non-tender, nondistended with positive bowel sounds. No masses appreciated. PEG tube in place without signs of abnormalities. MUSCULOSKELETAL: No cyanosis. No calf tenderness. Upper and lower extremity appears improved from prior exams. NEURO/PSYCH: AAO1. GCS 9 (E2V2M5) Patient unable to communicate which is her baseline. Full neurologic evaluation unable to be completed due to mental status. <Ivis Calabrese - 01/13/18 19:37> Assessment and Plan - Assessment (1) UTI (urinary tract infection) Code(s): N39.0 - Urinary tract infection, site not specified Status: Acute (2) Oxygen desaturation Code(s): R09.02 - Hypoxemia Status: Resolved (3) Clostridium difficile diarrhea Code(s): A04.72 - Enterocolitis due to Clostridium difficile, not specified as recurrent Status: Acute (4) Sacral pressure ulcer Code(s): L89.159 - Pressure ulcer of sacral region, unspecified stage Status: Acute (5) Acute CVA (cerebrovascular accident) Code(s): I63.9 - Cerebral infarction, unspecified Status: Acute (6) Altered mental status, unspecified Code(s): R41.82 - Altered mental status, unspecified Status: Acute (7) Seizure Code(s): R56.9 - Unspecified convulsions Status: Acute (8) Poor nutrition Code(s): E63.9 - Nutritional deficiency, unspecified Status: Acute (9) Palliative care patient Code(s): Z51.5 - Encounter for palliative care Status: Acute (10) History of CVA (cerebrovascular accident) Code(s): Z86.73 - Personal history of transient ischemic attack (TIA), and cerebral infarction without residual deficits Status: Chronic (11) GERD (gastroesophageal reflux disease) Code(s): K21.9 - Gastro-esophageal reflux disease without esophagitis Status: Chronic (12) Atrial fibrillation Code(s): I48.91 - Unspecified atrial fibrillation Status: Chronic (13) CHF (congestive heart failure) Code(s): I50.9 - Heart failure, unspecified Status: Chronic (14) Hypertension Code(s): I10 - Essential (primary) hypertension Status: Chronic (15) Nutrition, metabolism, and development symptoms Code(s): R63.8 - Other symptoms and signs concerning food and fluid intake Status: Acute (16) DVT prophylaxis Status: Acute <Suzy Fischer - 01/13/18 20:52> (1) UTI (urinary tract infection) Code(s): N39.0 - Urinary tract infection, site not specified Status: Acute Plan: Pt spiked a low grade fever of 100.8F on 01/07/18. She has been afebrile since. UA shows moderate blood, moderate leukocyte esterase, and many bacteria. Patient on day 4 of Rocephin 1g IV qD. Urine culture showed Fern albicans. Patient is asymptomatic and due to interaction of fluconazole with Dilantin. Medical team to contact Neurology to discuss possible treatment of candiduria with Fluconazole vs. Micafungin in relation to her Dilantin levels. -Rocephin 01/07-01/11 -Patient started on Fluconazole 01/12 -Plan to check Dilantin levels 01/14 per neurology (2) Oxygen desaturation Code(s): R09.02 - Hypoxemia Status: Resolved Plan: Patient with desaturation to the 80s with hypotension to the 80s systolic yesterday. Patient at high risk of aspiration due to tube feeding and being bedbound. Patient currently does not meet SIRS/sepsis criteria, however patient is in a delicate state due to her debilitating medical conditions. Low threshold to fully evaluate for possible infectious process. Currently resolved , will follow closely. -2 L nasal cannula applied, continue to monitor and titrate as necessary -Continue to closely monitor blood pressure (monitor IV fluid administration to avoid fluid overload) (3) Clostridium difficile diarrhea Code(s): A04.72 - Enterocolitis due to Clostridium difficile, not specified as recurrent Status: Acute Plan: Nursing staff reported up to 8 liquid bowel movements on 01/06/18. Patient was found to be positive for C.diff on 01/07. Rectal tube placed, laxative/stool softeners held, Vancomycin per G-tube started and Lactobacillus given 3 times daily. -Rectal tube discontinued as liquid stool has resolved -Vancomycin per G-tube 125 mg 4 times daily per protocol -Lactobacillus given to assist with gut rod (4) Sacral pressure ulcer Code(s): L89.159 - Pressure ulcer of sacral region, unspecified stage Status: Acute Plan: Patient found to have stage IV pressure ulcer of the sacrum. Patient placed in appropriate bedding for patient due to sacral wound yesterday following wound care recommendations. -Nursing to rotate patient per protocol. (5) Acute CVA (cerebrovascular accident) Code(s): I63.9 - Cerebral infarction, unspecified Status: Acute Plan: Patient with new ischemic infarct, while on anticoagulation seen on CT head 01/03. Possibly this finding on CT on 01/03 due to new infarct or associated with extension of possible infarct on admission date which is now visible on CT scan. Will not be able to determine as patient was unable to have MRI on admission. Regardless this is a large infarct and most recent CT from 01/08 shows further extension and some edema. The risk for this transitioning to hemorrhagic is high. Continue to hold anticoagulation. Neurology is following in this case. Her overall prognosis for meaningful recovery remains very poor. Patients family continue to desire aggressive care and management and are hopeful for a recovery to her baseline prior to admission. - If/When to restart anticoagulation per neurology. -Continue supportive care with PT/OT (6) Altered mental status, unspecified Code(s): R41.82 - Altered mental status, unspecified Status: Acute Plan: Patient's mentation has not returned to baseline due to new evolving right MCA infarct. This is likely her new baseline. -Neurology following Started on Provigil 200mg PEG daily, Dilantin 130 mg liquid PEG BID, Dilantin 100mg liquid PEG @1300 and Divalproex Sprinkles 500mg PEG BID Eliqus stopped on 01/05 due to concern for hemorrhagic conversion of currently evolving ischemic CVA (7) Seizure Code(s): R56.9 - Unspecified convulsions Status: Acute Plan: Patient with history of seizure disorder. Witnessed seizure at halfway in a.m. day of admission. No seizures reported during hospitalization. * See Plan above. (8) Poor nutrition Code(s): E63.9 - Nutritional deficiency, unspecified Status: Acute Plan: Patient with poor nutritional status. PEG tube placed and tube feeds started . -Jevity 1.5 at goal rate of 60 ml/hr over 20 hours with 100ml free water flushes Q4H as patient will receive additional free water flushes with medications. (9) Palliative care patient Code(s): Z51.5 - Encounter for palliative care Status: Acute Plan: Palliative care consulted to assist with goals of care. Per family request, the family has repeatedly asked from the palliative care team to not contact them. Appreciate the palliative care team's assistance (10) History of CVA (cerebrovascular accident) Code(s): Z86.73 - Personal history of transient ischemic attack (TIA), and cerebral infarction without residual deficits Status: Chronic Plan: Patient with history of CVA x2. On admission, patient with altered mental status. Last known normal: Day prior to admission. -Please see plan as above (11) GERD (gastroesophageal reflux disease) Code(s): K21.9 - Gastro-esophageal reflux disease without esophagitis Status: Chronic Plan: Patient with history of GERD. Medications: * Pantoprazole IV. (12) Atrial fibrillation Code(s): I48.91 - Unspecified atrial fibrillation Status: Chronic Plan: Patient with history of A. fib. Patient with irregular irregular rhythm on exam. Cardiology consulted as above Medications: * Will continue home Eliquis once cleared from Neurology post CVA * Continue carvedilol (13) CHF (congestive heart failure) Code(s): I50.9 - Heart failure, unspecified Status: Chronic Plan: Patient with history of congestive heart failure. Caution IVF. Medications: * Continue home Lasix and Coreg. (14) Hypertension Code(s): I10 - Essential (primary) hypertension Status: Chronic Plan: Patient with history of hypertension. Per neurology, goal less than 120/80. Medications: * Continue home Coreg. * Clonidine as needed for BP >180/110 (15) Nutrition, metabolism, and development symptoms Code(s): R63.8 - Other symptoms and signs concerning food and fluid intake Status: Acute Plan: Fluid: * Free water flushes Q4H and with medications. Monitor IVF to avoid fluid overload. Electrolyte: * Monitor and replete as necessary. Nutrition: * Tube feeds only with dietary consult. Free water flushes Q4H and with medications (16) DVT prophylaxis Status: Acute Plan: Prophylaxis: * SCDs. <Ivis Calabrese - 01/13/18 19:37> - Assessment and Plan Patient is an 87 year old female who presents to the [place] ED via EMS following a witnessed seizure. Patient with history of seizure disorder. Patient given Versed en-route to hospital and Keppra bolus in ED. Patient's GCS 8 at time of admission encounter. Patient originally admitted for evaluation and management of seizure versus CVA. New CVA in right MCA region found by head CT on 01/03 (likely the original inciting event for admission) with further evolution on 01/08. <Ivis Calabrese - 01/13/18 11:47> - Attending Attestation Patient seen, examined today, and discussed with Dr Calabrese. I agree with assessment and management as documented and discussed with me. No new concerns. CT head today - await further recs from neurology based on these results. <Suzy Fischer - 01/13/18 20:52> <Ivis Calabrese - Last Filed: 01/13/18 19:37> (4) Sacral pressure ulcer Qualifiers: Pressure ulcer stage: stage 4 Qualified Code(s): L89.154 - Pressure ulcer of sacral region, stage 4 (6) Altered mental status, unspecified Qualifiers: Altered mental status type: unspecified Qualified Code(s): R41.82 - Altered mental status, unspecified <Suzy Fischer - Last Filed: 01/13/18 20:52> (4) Sacral pressure ulcer Qualifiers: Pressure ulcer stage: stage 4 Qualified Code(s): L89.154 - Pressure ulcer of sacral region, stage 4 (6) Altered mental status, unspecified Qualifiers: Altered mental status type: unspecified Qualified Code(s): R41.82 - Altered mental status, unspecified <Ivis Calabrese - Last Filed: 01/13/18 19:37> (4) Sacral pressure ulcer Qualifiers: Pressure ulcer stage: stage 4 Qualified Code(s): L89.154 - Pressure ulcer of sacral region, stage 4 (6) Altered mental status, unspecified Qualifiers: Altered mental status type: unspecified Qualified Code(s): R41.82 - Altered mental status, unspecified <Suzy Fischer - Last Filed: 01/13/18 20:52> (4) Sacral pressure ulcer Qualifiers: Pressure ulcer stage: stage 4 Qualified Code(s): L89.154 - Pressure ulcer of sacral region, stage 4 (6) Altered mental status, unspecified Qualifiers: Altered mental status type: unspecified Qualified Code(s): R41.82 - Altered mental status, unspecified
[2018-01-13] MEDS: Pantoprazole Inj 40 MG Vial IV.PUSH SCH (12:07)
[2018-01-14 07:28] LABS: Hematocrit 26.7 % (35.0-46.0); Hemoglobin 8.4 gm/dL (11.6-15.3); Mean Corpuscular HGB Conc 31.6 % (32.0-36.0); Mean Corpuscular Hemoglobin 30.8 pg (27.0-34.0); Mean Corpuscular Volume 97.3 fL (80.0-100.0); Mean Platelet Volume 7.9 fL (7.0-11.0); Platelet Count 360 th/mm3 (150-450); Red Blood Count 2.74 mil/mm3 (4.00-5.30); Red Cell Distribution Width 16.9 % (11.6-17.2); White Blood Count 4.6 th/mm3 (4.0-11.0)
[2018-01-14 07:49] LABS: Anion Gap 5 meq/L (5-15); Blood Urea Nitrogen 14 mg/dL (7-18); Calcium 8.5 mg/dL (8.5-10.1); Carbon Dioxide 33.5 meq/L (21.0-32.0); Chloride 110 meq/L (98-107); Glomerular Filtration Rate Greater Than 89 mL/min (>89); Glucose,Random 169 mg/dL (74-106); Potassium 5.2 meq/L (3.5-5.1); Sodium 148 meq/L (136-145)
[2018-01-14] MEDS: Insulin NovoLOG Aspart Correctional Sugar Inj SQ SCH ×5 (08:52→21:26)
[2018-01-14] MEDS: Furosemide 20 MG Tablet G-TUBE SCH (08:53)
[2018-01-14] MEDS: Potassium Chloride 10 MEQ ER Capsule PO SCH (08:54)
[2018-01-14] MEDS: Divalproex 125 MG Sprinkles Capsule G-TUBE SCH ×2 (08:54→21:21)
[2018-01-14] MEDS: Carvedilol 6.25 MG Tablet G-TUBE SCH ×2 (08:55→21:22)
[2018-01-14] MEDS: Multivitamin/Minerals Therapeutic Tablet PO SCH (08:55)
[2018-01-14] MEDS: Modafinil 200 MG Tablet G-TUBE SCH (08:56)
[2018-01-14] MEDS: Phenytoin Susp 100 MG/4 ML UDC G-TUBE SCH ×3 (08:56→21:20)
--- NOTE | 2018-01-14 09:35 | P.PNFP ---
Subjective Interval history: Patient seen and examined this morning. She slightly opened her eyes to her name being called. Is not grunting or moaning today. 1530: Attempted to call patient's daughter and Healthcare Surrogate, Kaci Koenig, to update her of pt's status and to discuss discharge planning. I left a voicemail. I attempted to call again two more times. <RyanKaia G - 01/14/18 16:37> Results - Labs Result diagrams: 01/14/18 06:54 01/14/18 06:54 <Suzy Fischer - 01/14/18 20:06> Abnormal lab results 01/13/18 01/14/18 01/14/18 Range/Units 21:22 06:54 06:54 RBC 2.74 L (4.00-5.30) mil/mm3 Hgb 8.4 L (11.6-15.3) gm/dL Hct 26.7 L (35.0-46.0) % MCHC 31.6 L (32.0-36.0) % Sodium 148 H (136-145) meq/L Potassium 5.2 H (3.5-5.1) meq/L Chloride 110 H (98-107) meq/L Carbon Dioxide 33.5 H (21.0-32.0) meq/L Creatinine 0.31 L (0.50-1.00) mg/dL POC Glucose 193 H (68-110) mg/dl Random Glucose 169 H (74-106) mg/dL 01/14/18 01/14/18 01/14/18 Range/Units 07:34 12:09 16:29 RBC (4.00-5.30) mil/mm3 Hgb (11.6-15.3) gm/dL Hct (35.0-46.0) % MCHC (32.0-36.0) % Sodium (136-145) meq/L Potassium (3.5-5.1) meq/L Chloride (98-107) meq/L Carbon Dioxide (21.0-32.0) meq/L Creatinine (0.50-1.00) mg/dL POC Glucose 204 H 193 H 123 H (68-110) mg/dl Random Glucose (74-106) mg/dL Short CBC 01/14/18 Range/Units 06:54 WBC 4.6 (4.0-11.0) th/mm3 Hgb 8.4 L (11.6-15.3) gm/dL Hct 26.7 L (35.0-46.0) % Plt Count 360 (150-450) th/mm3 BMP 01/14/18 06:54 Sodium 148 H Potassium 5.2 H Chloride 110 H Carbon Dioxide 33.5 H BUN 14 Creatinine 0.31 L Calcium 8.5 <Suzy Fischer - 01/14/18 20:06> Abnormal lab results 01/13/18 01/13/18 01/13/18 Range/Units 09:40 09:40 11:59 RBC 3.02 L (4.00-5.30) mil/mm3 Hgb 9.0 L (11.6-15.3) gm/dL Hct 29.4 L (35.0-46.0) % MCHC 30.6 L (32.0-36.0) % Sodium 148 H (136-145) meq/L Potassium (3.5-5.1) meq/L Chloride 111 H (98-107) meq/L Carbon Dioxide (21.0-32.0) meq/L Creatinine 0.31 L (0.50-1.00) mg/dL POC Glucose 124 H (68-110) mg/dl Random Glucose 149 H (74-106) mg/dL 01/13/18 01/13/18 01/14/18 Range/Units 16:49 21:22 06:54 RBC 2.74 L (4.00-5.30) mil/mm3 Hgb 8.4 L (11.6-15.3) gm/dL Hct 26.7 L (35.0-46.0) % MCHC 31.6 L (32.0-36.0) % Sodium (136-145) meq/L Potassium (3.5-5.1) meq/L Chloride (98-107) meq/L Carbon Dioxide (21.0-32.0) meq/L Creatinine (0.50-1.00) mg/dL POC Glucose 187 H 193 H (68-110) mg/dl Random Glucose (74-106) mg/dL 01/14/18 01/14/18 Range/Units 06:54 07:34 RBC (4.00-5.30) mil/mm3 Hgb (11.6-15.3) gm/dL Hct (35.0-46.0) % MCHC (32.0-36.0) % Sodium 148 H (136-145) meq/L Potassium 5.2 H (3.5-5.1) meq/L Chloride 110 H (98-107) meq/L Carbon Dioxide 33.5 H (21.0-32.0) meq/L Creatinine 0.31 L (0.50-1.00) mg/dL POC Glucose 204 H (68-110) mg/dl Random Glucose 169 H (74-106) mg/dL Short CBC 01/13/18 01/14/18 Range/Units 09:40 06:54 WBC 6.6 4.6 (4.0-11.0) th/mm3 Hgb 9.0 L 8.4 L (11.6-15.3) gm/dL Hct 29.4 L 26.7 L (35.0-46.0) % Plt Count 330 360 (150-450) th/mm3 BMP 01/13/18 01/14/18 09:40 06:54 Sodium 148 H 148 H Potassium 4.9 5.2 H Chloride 111 H 110 H Carbon Dioxide 31.7 33.5 H BUN 13 14 Creatinine 0.31 L 0.31 L Calcium 8.5 8.5 <Kaia Davis - 01/14/18 09:35> - Imaging Impressions Head CT 01/13/18 00:00 CONCLUSION: 1. Continued evolution of right middle cerebral artery distribution infarct without evidence of acute hemorrhage <Kaia Davis - 01/14/18 09:35> Physical Exam Vital signs: Vital Signs 01/14/18 00:00 01/14/18 00:54 01/14/18 01:30 Temperature 97.2 F L Pulse Rate 90 88 Respiratory Rate 31 H 22 23 Blood Pressure Pulse Oximetry 01/14/18 04:00 01/14/18 08:00 01/14/18 09:00 Temperature 97.8 F 98.1 F Pulse Rate 84 80 85 Respiratory Rate 23 16 Blood Pressure 134/60 119/64 Pulse Oximetry 100 93 L 01/14/18 12:00 01/14/18 12:20 01/14/18 15:32 Temperature 98.0 F Pulse Rate 67 73 Respiratory Rate 16 Blood Pressure 98/54 L Pulse Oximetry 92 L 92 L 01/14/18 17:57 Temperature 97.7 F Pulse Rate 68 Respiratory Rate 16 Blood Pressure 102/60 Pulse Oximetry 93 L Intake & Output 01/14/18 01/14/18 01/15/18 06:59 18:59 06:59 Intake Total 398 / 398 349 / 349 Output Total 500 / 500 Balance 398 / 398 -151 / -151 Intake: Tube Feeding 398 / 398 349 / 349 Output: Urine 500 / 500 Other: Date of Last Bowel Movement 01/13/18 <Suzy Fischer - 01/14/18 20:06> Vital Signs 01/13/18 13:31 01/13/18 16:00 01/13/18 16:19 Temperature 98.6 F Pulse Rate 77 78 Respiratory Rate 16 18 Blood Pressure 100/55 L 99/59 L Pulse Oximetry 100 100 100 01/13/18 20:00 01/14/18 00:00 01/14/18 00:54 Temperature 97.2 F L 97.2 F L Pulse Rate 88 90 88 Respiratory Rate 20 31 H 22 Blood Pressure 113/55 L Pulse Oximetry 98 01/14/18 01:30 01/14/18 04:00 01/14/18 08:00 Temperature 97.8 F 98.1 F Pulse Rate 84 80 Respiratory Rate 23 23 16 Blood Pressure 134/60 119/64 Pulse Oximetry 100 93 L Intake & Output 01/13/18 01/14/18 01/14/18 18:59 06:59 18:59 Intake Total 398 / 398 Output Total 450 / 450 Balance -450 / -450 398 / 398 Intake: Tube Feeding 398 / 398 Output: Urine 450 / 450 Other: # Bowel Movements 1 <Kaia Davis - 01/14/18 09:35> Narrative: GENERAL: frail elderly female laying in bed asleep NC in place, in no acute distress SKIN: Warm and dry. HEAD: Atraumatic. Normocephalic. EYES: No scleral icterus. No injection or drainage. ENT: No nasal bleeding or discharge. NECK: Trachea midline. No JVD. CARDIOVASCULAR: Regular rate and rhythm. RESPIRATORY: No accessory muscle use. Coarse breath sounds diffusely auscultated anteriorly GASTROINTESTINAL: Abdomen soft, non-tender, nondistended. Hepatic and splenic margins not palpable. PEG tube in place without signs of infections, no erythema , no discharge MUSCULOSKELETAL: Extremities without clubbing, cyanosis, or edema. No obvious deformities. NEUROLOGICAL: Asleep, unable to be aroused. Unable to performed full neurological assessment due to patient's mental status <Kaia Davis - 01/14/18 16:37> Assessment and Plan - Assessment (1) UTI (urinary tract infection) Code(s): N39.0 - Urinary tract infection, site not specified Status: Acute (2) Oxygen desaturation Code(s): R09.02 - Hypoxemia Status: Resolved (3) Clostridium difficile diarrhea Code(s): A04.72 - Enterocolitis due to Clostridium difficile, not specified as recurrent Status: Acute (4) Sacral pressure ulcer Code(s): L89.159 - Pressure ulcer of sacral region, unspecified stage Status: Acute (5) Acute CVA (cerebrovascular accident) Code(s): I63.9 - Cerebral infarction, unspecified Status: Acute (6) Altered mental status, unspecified Code(s): R41.82 - Altered mental status, unspecified Status: Acute (7) Seizure Code(s): R56.9 - Unspecified convulsions Status: Acute (8) Poor nutrition Code(s): E63.9 - Nutritional deficiency, unspecified Status: Acute (9) Palliative care patient Code(s): Z51.5 - Encounter for palliative care Status: Acute (10) History of CVA (cerebrovascular accident) Code(s): Z86.73 - Personal history of transient ischemic attack (TIA), and cerebral infarction without residual deficits Status: Chronic (11) GERD (gastroesophageal reflux disease) Code(s): K21.9 - Gastro-esophageal reflux disease without esophagitis Status: Chronic (12) Atrial fibrillation Code(s): I48.91 - Unspecified atrial fibrillation Status: Chronic (13) CHF (congestive heart failure) Code(s): I50.9 - Heart failure, unspecified Status: Chronic (14) Hypertension Code(s): I10 - Essential (primary) hypertension Status: Chronic (15) Nutrition, metabolism, and development symptoms Code(s): R63.8 - Other symptoms and signs concerning food and fluid intake Status: Acute (16) DVT prophylaxis Status: Acute <Suzy Fischer - 01/14/18 20:06> (1) UTI (urinary tract infection) Code(s): N39.0 - Urinary tract infection, site not specified Status: Acute Plan: Pt spiked a low grade fever of 100.8F on 01/07/18. She has been afebrile since. UA shows moderate blood, moderate leukocyte esterase, and many bacteria. Patient has completed her course of Rocephin. Urine culture showed Fern albicans. Patient started on Fluconazole after discussion with Dr. Carolina of Neurology. -Rocephin 01/07-01/11 -Patient started on Fluconazole 01/12 -Plan to check Dilantin levels 01/14 per neurology (2) Oxygen desaturation Code(s): R09.02 - Hypoxemia Status: Resolved Plan: Patient with desaturation to the 80s with hypotension to the 80s systolic yesterday. Patient at high risk of aspiration due to tube feeding and being bedbound. Patient currently does not meet SIRS/sepsis criteria, however patient is in a delicate state due to her debilitating medical conditions. Low threshold to fully evaluate for possible infectious process. Currently resolved , will follow closely. -2 L nasal cannula applied, continue to monitor and titrate as necessary -Continue to closely monitor blood pressure (monitor IV fluid administration to avoid fluid overload) (3) Clostridium difficile diarrhea Code(s): A04.72 - Enterocolitis due to Clostridium difficile, not specified as recurrent Status: Acute Plan: Nursing staff reported up to 8 liquid bowel movements on 01/06/18. Patient was found to be positive for C.diff on 01/07. Rectal tube placed, laxative/stool softeners held, Vancomycin per G-tube started and Lactobacillus given 3 times daily. -Rectal tube discontinued as liquid stool has resolved -Vancomycin per G-tube 125 mg 4 times daily for a total of 10 days (01/08- ) -Lactobacillus given to assist with gut rod (4) Sacral pressure ulcer Code(s): L89.159 - Pressure ulcer of sacral region, unspecified stage Status: Acute Plan: Patient found to have stage IV pressure ulcer of the sacrum. Patient placed in appropriate bedding for patient due to sacral wound yesterday following wound care recommendations. -Nursing to rotate patient per protocol. (5) Acute CVA (cerebrovascular accident) Code(s): I63.9 - Cerebral infarction, unspecified Status: Acute Plan: Patient with new ischemic infarct, while on anticoagulation seen on CT head 01/03. Possibly this finding on CT on 01/03 due to new infarct or associated with extension of possible infarct on admission date which is now visible on CT scan. Will not be able to determine as patient was unable to have MRI on admission. Regardless, this is a large infarct and most recent CT from 01/13 shows further evolution with decreased edema (discussed with Dr. Carolina on 01/14) . The risk for this transitioning to hemorrhagic is high. Continue to hold anticoagulation. Neurology is following in this case. Her overall prognosis for meaningful recovery remains very poor. Patients family continue to desire aggressive care and management and are hopeful for a recovery to her baseline prior to admission. -F/u Head CT wo contrast in 2 weeks as an outpatient, afterwards will compare CT scans to determine whether to restart Eliquis, per Dr. Carolina by phone on -Continue supportive care with PT/OT (6) Altered mental status, unspecified Code(s): R41.82 - Altered mental status, unspecified Status: Acute Plan: Patient's mentation has not returned to baseline due to new evolving right MCA infarct. This is likely her new baseline. -Neurology following Started on Provigil 200mg PEG daily, Dilantin 130 mg liquid PEG BID, Dilantin 100mg liquid PEG @1300 and Divalproex Sprinkles 500mg PEG BID Eliquis stopped on 01/05 due to concern for hemorrhagic conversion of currently evolving ischemic CVA (7) Seizure Code(s): R56.9 - Unspecified convulsions Status: Acute Plan: Patient with history of seizure disorder. Witnessed seizure at retirement in a.m. day of admission. No seizures reported during hospitalization. * See Plan above. (8) Poor nutrition Code(s): E63.9 - Nutritional deficiency, unspecified Status: Acute Plan: Patient with poor nutritional status. PEG tube placed and tube feeds started . -Jevity 1.5 at goal rate of 60 ml/hr over 20 hours with 100ml free water flushes Q4H as patient will receive additional free water flushes with medications. (9) Palliative care patient Code(s): Z51.5 - Encounter for palliative care Status: Acute Plan: Palliative care consulted to assist with goals of care. Per family request, the family has repeatedly asked from the palliative care team to not contact them. Appreciate the palliative care team's assistance (10) History of CVA (cerebrovascular accident) Code(s): Z86.73 - Personal history of transient ischemic attack (TIA), and cerebral infarction without residual deficits Status: Chronic Plan: Patient with history of CVA x2. On admission, patient with altered mental status. Last known normal: Day prior to admission. -Please see plan as above (11) GERD (gastroesophageal reflux disease) Code(s): K21.9 - Gastro-esophageal reflux disease without esophagitis Status: Chronic Plan: Patient with history of GERD. Medications: * Pantoprazole IV. (12) Atrial fibrillation Code(s): I48.91 - Unspecified atrial fibrillation Status: Chronic Plan: Patient with history of A. fib. Patient with irregular irregular rhythm on exam. Cardiology consulted as above Medications: * Will continue home Eliquis once cleared from Neurology post CVA * Continue carvedilol (13) CHF (congestive heart failure) Code(s): I50.9 - Heart failure, unspecified Status: Chronic Plan: Patient with history of congestive heart failure. Caution IVF. Medications: * Continue home Lasix and Coreg. (14) Hypertension Code(s): I10 - Essential (primary) hypertension Status: Chronic Plan: Patient with history of hypertension. Per neurology, goal less than 120/80. Medications: * Continue home Coreg. * Clonidine as needed for BP >180/110 (15) Nutrition, metabolism, and development symptoms Code(s): R63.8 - Other symptoms and signs concerning food and fluid intake Status: Acute Plan: Fluid: * Free water flushes Q4H and with medications. Monitor IVF to avoid fluid overload. Electrolyte: * Monitor and replete as necessary. Nutrition: * Tube feeds only with dietary consult. Free water flushes Q4H and with medications (16) DVT prophylaxis Status: Acute Plan: Prophylaxis: * SCDs. <Kaia Davis - 01/14/18 16:23> - Assessment and Plan Patient is an 87 year old female who presents to the [facility] ED via EMS following a witnessed seizure. Patient with history of seizure disorder. Patient given Versed en-route to hospital and Keppra bolus in ED. Patient's GCS 8 at time of admission encounter. Patient originally admitted for evaluation and management of seizure versus CVA. New CVA in right MCA region found by head CT on 01/03 (likely the original inciting event for admission) with further evolution on 01/08. <Kaia Davis - 01/14/18 09:35> Discharge Planning: Pending placement CM consulted to assist <Kaia Davis - 01/14/18 09:35> - Attending Attestation Patient seen and examined this morning, discussed with Dr Davis. I agree with assessment and management as documented and discussed with me. No new concerns. Appreciate neurology Appreciate case management - discharge planning continues. <Suzy Fischer - 01/14/18 20:06> <Kaia Davis - Last Filed: 01/14/18 16:23> (4) Sacral pressure ulcer Qualifiers: Pressure ulcer stage: stage 4 Qualified Code(s): L89.154 - Pressure ulcer of sacral region, stage 4 (6) Altered mental status, unspecified Qualifiers: Altered mental status type: unspecified Qualified Code(s): R41.82 - Altered mental status, unspecified <Suzy Fischer - Last Filed: 01/14/18 20:06> (4) Sacral pressure ulcer Qualifiers: Pressure ulcer stage: stage 4 Qualified Code(s): L89.154 - Pressure ulcer of sacral region, stage 4 (6) Altered mental status, unspecified Qualifiers: Altered mental status type: unspecified Qualified Code(s): R41.82 - Altered mental status, unspecified <Kaia Davis - Last Filed: 01/14/18 16:23> (4) Sacral pressure ulcer Qualifiers: Pressure ulcer stage: stage 4 Qualified Code(s): L89.154 - Pressure ulcer of sacral region, stage 4 (6) Altered mental status, unspecified Qualifiers: Altered mental status type: unspecified Qualified Code(s): R41.82 - Altered mental status, unspecified <Suzy Fischer - Last Filed: 01/14/18 20:06> (4) Sacral pressure ulcer Qualifiers: Pressure ulcer stage: stage 4 Qualified Code(s): L89.154 - Pressure ulcer of sacral region, stage 4 (6) Altered mental status, unspecified Qualifiers: Altered mental status type: unspecified Qualified Code(s): R41.82 - Altered mental status, unspecified
[2018-01-14] MEDS: Pantoprazole Inj 40 MG Vial IV.PUSH SCH (10:45)
--- NOTE | 2018-01-14 15:54 | P.DIET ---
Nutritional Evaluation Type of nutrition evaluation: follow-up Nutrition consult regarding: Tube Feeding Nutrition screening: [facility] [place] (01/07 "pt with severe diarrhea") Screening comments: s/p PEG placement Objective - Diagnosis Seizures, AMS. PMH see H&P - Objective % IBW: 88 (IBW = 135#) Body Weight Used for Calculations: Actual Energy Needs - Lower Range (kCal/kg): 33 Energy Needs - Upper Range (kCal/kg): 38 Lower Limit kCal/kg (kCals): 1,584 Upper Limit kCal/kg (kCals): 1,824 Lower Limit Protein Factor (Grams per Kg): 1.2 Upper Limit Protein Factor (Grams per Kg): 1.5 Lower Protein Needs (Protein): 58 Upper Protein Needs (Protein): 72 Dietitian Reviewed in Medical Record: Current diet, Curent medications, Intake & Output, Labs, Tube feeding Diet Order: NONE Wound Care Note: see WOCN dated 01/07. Indicates sacral stage 4 Pressure Injury Feeding - Current Tube Feeding Tube Feeding Product: Jevity 1.5 Tube Feeding Rate: 40 Medications That Affect Tube Feeding Run Time: Dilantin Total Time Off: 2 hours Assessment Assessment: Pt remains at high nutrition risk. Pt has been tolerating Jevity 1.5 @ 40 mls/ hr. Pt. continues to receive Dilantin but it is qd now. requiring TFing to be turned off for 2 hours. Recommend Jevity 1.5 @ goal rate of 55 mls/hr over 22 hours. Jevity 1.5 has fiber, which has a bulking effect on stool, which would make it the best choice for diarrhea. Labs, wts and clinical course reviewed. Significant wt change noted: 55 kg on (01/12) and 67.3 kg on (01/13). Will monitor for trends. Elevated glucose noted, may want to consider Glucerna 1.5 formula for better glucose control. Recommendations: Recommend Jevity 1.5 @ goal rate of 55 mls/hr over 22 hours d/t Dilantin Dietitian to Monitor: Lab values, Glucose level, Tube feeding tolerance, Weight change, Medical course
--- NOTE | 2018-01-14 17:33 | P.PNNEU ---
Subjective Subjective Comments: No acute events reported No recurrent sz Active Medications: Active Medications Albuterol (Duoneb Neb (Prn)) 1 ampul INH Q6HR NEB PRN PRN Reason: SOB/WHEEZING Last Admin: 01/14/18 00:52 Dose: 1 ampul Aspirin (Ecotrin) 325 mg PO DAILY [facility] Last Admin: 01/14/18 08:53 Dose: 325 mg Atorvastatin Calcium (Lipitor) 20 mg G-TUBE HS [facility] Last Admin: 01/13/18 21:42 Dose: 20 mg Carvedilol (Coreg) 6.25 mg G-TUBE Q12HR [facility] Last Admin: 01/14/18 08:55 Dose: 6.25 mg Clonidine HCl (Catapres) 0.1 mg PO Q6H PRN PRN Reason: SBP>180, DBP>110 Dextrose (D50w Vial) 50 ml IV.PUSH UNSCH PRN PRN Reason: HYPOGLYCEMIA-SEE COMMENTS Divalproex Sodium (Depakote Sprinkles) 500 mg G-TUBE BID [facility] Last Admin: 01/14/18 08:54 Dose: 500 mg Fluconazole (Diflucan) 200 mg PO DAILY@1800 [facility] Last Admin: 01/14/18 17:03 Dose: 200 mg Furosemide (Lasix) 20 mg G-TUBE DAILY [facility] Last Admin: 01/14/18 08:53 Dose: 20 mg Glucagon (Glucagon Inj) 1 mg OTHER UNSCH PRN PRN Reason: for Hypoglycemia Protocol Insulin Aspart (Novolog Insulin Suppl Scale Inj) 0 unit SQ ACHS [facility]; Protocol Last Admin: 01/14/18 16:36 Dose: Not Given Lactobacillus Acidophilus (Lactinex Pkt) 1 gm G-TUBE TID [facility] Last Admin: 01/14/18 17:03 Dose: 1 gm Lorazepam (Ativan Inj) 0.5 mg IV.PUSH HS PRN PRN Reason: SLEEP Miscellaneous (Pill Splitter) 1 each OTHER UNSCH PRN PRN Reason: SEE LABEL COMMENTS Modafinil (Provigil) 200 mg G-TUBE DAILY [facility] Last Admin: 01/14/18 08:56 Dose: 200 mg Multivitamins/Minerals (Theragran-M) 1 tab PO DAILY [facility] Last Admin: 01/14/18 08:55 Dose: 1 tab Pantoprazole Sodium (Protonix Inj) 40 mg IV.PUSH Q24H [facility] Last Admin: 01/14/18 10:45 Dose: 40 mg Phenytoin (Dilantin Liq) 130 mg G-TUBE BID [facility] Last Admin: 01/14/18 08:56 Dose: 130 mg Phenytoin (Dilantin Liq) 100 mg G-TUBE DAILY@1300 [facility] Last Admin: 01/14/18 12:12 Dose: 100 mg Potassium Chloride (Kcl) 10 meq PO DAILY [facility] Last Admin: 01/14/18 08:54 Dose: 10 meq Sodium Chloride (Ns Flush) 2 ml IV.FLUSH BID [facility] Last Admin: 01/14/18 08:56 Dose: 2 ml Sodium Chloride (Ns Flush) 2 ml IV.FLUSH UNSCH PRN PRN Reason: FLUSH AFTER USING IV ACCESS Last Admin: 01/07/18 22:19 Dose: 2 ml Vancomycin HCl (Vancomycin Po) 125 mg NG/OG QID [facility] Stop: 01/18/18 12:59 Last Admin: 01/14/18 17:03 Dose: 125 mg Allergies/Adverse Reactions: Allergies Allergy/AdvReac Type Severity Reaction Status Date / Time acetaminophen Allergy Severe nausea and Verified 01/01/18 11:09 vomiting propoxyphene Allergy Severe nausea and Verified 01/01/18 11:09 vomiting MRI PRECAUTION Allergy Severe UNKNOWN Uncoded 01/01/18 11:09 Physical Exam Vital signs: Vital Signs 01/13/18 20:00 01/14/18 00:00 01/14/18 00:54 Temperature 97.2 F L 97.2 F L Pulse Rate 88 90 88 Respiratory Rate 20 31 H 22 Blood Pressure 113/55 L Pulse Oximetry 98 01/14/18 01:30 01/14/18 04:00 01/14/18 08:00 Temperature 97.8 F 98.1 F Pulse Rate 84 80 Respiratory Rate 23 23 16 Blood Pressure 134/60 119/64 Pulse Oximetry 100 93 L 01/14/18 09:00 01/14/18 12:00 01/14/18 12:20 Temperature 98.0 F Pulse Rate 85 67 73 Respiratory Rate 16 Blood Pressure 98/54 L Pulse Oximetry 92 L 01/14/18 15:32 Temperature Pulse Rate Respiratory Rate Blood Pressure Pulse Oximetry 92 L Intake & Output 01/13/18 01/14/18 01/14/18 18:59 06:59 18:59 Intake Total 398 / 398 349 / 349 Output Total 450 / 450 Balance -450 / -450 398 / 398 349 / 349 Intake: Tube Feeding 398 / 398 349 / 349 Output: Urine 450 / 450 Other: Date of Last Bowel Movement 01/13/18 # Bowel Movements 1 Narrative: nonresponsive PERRL, EOM intact to occulocephalics MOTOR--no spontaneous limb movement decrease tone LUE - Routine Neurological Exam alert, follow some commands CN--perrl/ left facial weakness MOTOR--no movement LUE or LLE - Urinary Catheter Management Indwelling Temp Sensing Catheter Cath placed during this visit: yes Reason for continuing: Severe pressure ulcer/wound Insertion date: 01/16/18 Insertion time: 04:00 Objective Radiology Results: CT brain yesterday shows large right hemisphere stroke involving whole MCA territory . THere is decrease in edema compared with prior scan and no hemorrhage. Laboratory Results - last 24 hr 01/13/18 01/14/18 01/14/18 21:22 06:54 06:54 WBC 4.6 RBC 2.74 L Hgb 8.4 L Hct 26.7 L MCV 97.3 MCH 30.8 MCHC 31.6 L RDW 16.9 Plt Count 360 MPV 7.9 Sodium 148 H Potassium 5.2 H Chloride 110 H Carbon Dioxide 33.5 H Anion Gap 5 BUN 14 Creatinine 0.31 L Estimated GFR Greater than 89 POC Glucose 193 H Random Glucose 169 H Calcium 8.5 01/14/18 01/14/18 01/14/18 07:34 12:09 16:29 WBC RBC Hgb Hct MCV MCH MCHC RDW Plt Count MPV Sodium Potassium Chloride Carbon Dioxide Anion Gap BUN Creatinine Estimated GFR POC Glucose 204 H 193 H 123 H Random Glucose Calcium Review/Management - Diagnosis (1) Acute right MCA stroke Code(s): I63.511 - Cerebral infarction due to unspecified occlusion or stenosis of right middle cerebral artery Status: Acute Current Visit: Yes (2) Chronic right arterial ischemic stroke, MCA (middle cerebral artery) Code(s): I69.30 - Unspecified sequelae of cerebral infarction Status: Acute Current Visit: Yes (3) Hypertension Code(s): I10 - Essential (primary) hypertension Status: Chronic Current Visit: Yes (4) Seizure Code(s): R56.9 - Unspecified convulsions Status: Chronic Current Visit: Yes - Review/Management Plan: increase depakote to 500 mg tid and follow level recheck CT brain to consider resuming anticoagulation
[2018-01-15 06:14] LABS: Hematocrit 26.3 % (35.0-46.0); Hemoglobin 8.2 gm/dL (11.6-15.3); Mean Corpuscular HGB Conc 31.2 % (32.0-36.0); Mean Corpuscular Hemoglobin 30.9 pg (27.0-34.0); Mean Corpuscular Volume 98.8 fL (80.0-100.0); Platelet Count 361 th/mm3 (150-450); Red Blood Count 2.66 mil/mm3 (4.00-5.30); Red Cell Distribution Width 17.1 % (11.6-17.2); White Blood Count 4.5 th/mm3 (4.0-11.0)
[2018-01-15 08:06] LABS: Anion Gap 5 meq/L (5-15); Blood Urea Nitrogen 15 mg/dL (7-18); Calcium 8.2 mg/dL (8.5-10.1); Carbon Dioxide 32.6 meq/L (21.0-32.0); Chloride 110 meq/L (98-107); Glomerular Filtration Rate Greater Than 89 mL/min (>89); Glucose,Random 200 mg/dL (74-106); Phenytoin (Dilantin) 24.5 mcg/mL (10.0-20.0); Potassium 5.6 meq/L (3.5-5.1); Sodium 148 meq/L (136-145)
[2018-01-15] MEDS: Phenytoin Susp 100 MG/4 ML UDC G-TUBE SCH ×3 (09:13→21:25)
[2018-01-15] MEDS: Divalproex 125 MG Sprinkles Capsule G-TUBE SCH ×2 (09:17→21:24)
--- NOTE | 2018-01-15 09:19 | P.PNFP ---
Subjective Interval history: Patient seen and examined this morning. Patient did not open her eyes to her name being called or to sternal rub. No moaning or grunting. Spoke with her daughter Kaci Koenig, healthcare surrogate, this morning. She is on board with her mother being transferred back to [facility]. All of her questions were answered. <RyanKaia G - 01/16/18 00:11> Results - Labs Result diagrams: 01/16/18 05:07 01/16/18 05:07 <Suzy Fischer - 01/16/18 06:53> Abnormal lab results 01/15/18 01/15/18 01/15/18 Range/Units 05:32 09:07 15:18 RBC (4.00-5.30) mil/mm3 Hgb (11.6-15.3) gm/dL Hct (35.0-46.0) % MCHC (32.0-36.0) % O2 Saturation (90-100) % ABG pH (7.380-7.420) ABG pCO2 (38-42) mmHg ABG pO2 (61-120) mmHg ABG HCO3 (22-26) mmol/L ABG O2 Content (12.0-20.0) Vol % ABG Base Excess (-2-2) mmol/L Hemoglobin (12.0-16.0) G/DL Sodium 148 H (136-145) meq/L Potassium 5.6 H (3.5-5.1) meq/L Chloride 110 H (98-107) meq/L Carbon Dioxide 32.6 H (21.0-32.0) meq/L BUN (7-18) mg/dL Creatinine 0.30 L (0.50-1.00) mg/dL POC Glucose 205 H 153 H (68-110) mg/dl Random Glucose 200 H (74-106) mg/dL Calcium 8.2 L (8.5-10.1) mg/dL Phenytoin 24.5 H (10.0-20.0) mcg/mL 01/15/18 01/15/18 01/16/18 Range/Units 17:53 21:42 01:44 RBC (4.00-5.30) mil/mm3 Hgb (11.6-15.3) gm/dL Hct (35.0-46.0) % MCHC (32.0-36.0) % O2 Saturation (90-100) % ABG pH (7.380-7.420) ABG pCO2 (38-42) mmHg ABG pO2 (61-120) mmHg ABG HCO3 (22-26) mmol/L ABG O2 Content (12.0-20.0) Vol % ABG Base Excess (-2-2) mmol/L Hemoglobin (12.0-16.0) G/DL Sodium (136-145) meq/L Potassium (3.5-5.1) meq/L Chloride (98-107) meq/L Carbon Dioxide (21.0-32.0) meq/L BUN (7-18) mg/dL Creatinine (0.50-1.00) mg/dL POC Glucose 124 H 171 H 188 H (68-110) mg/dl Random Glucose (74-106) mg/dL Calcium (8.5-10.1) mg/dL Phenytoin (10.0-20.0) mcg/mL 01/16/18 01/16/18 01/16/18 Range/Units 02:08 03:49 05:07 RBC 2.56 L (4.00-5.30) mil/mm3 Hgb 7.7 L (11.6-15.3) gm/dL Hct 24.9 L (35.0-46.0) % MCHC 30.9 L (32.0-36.0) % O2 Saturation 70 L* (90-100) % ABG pH 6.88 L* 7.43 H (7.380-7.420) ABG pCO2 207 H* 52 H* (38-42) mmHg ABG pO2 58 L* 381 H (61-120) mmHg ABG HCO3 36 H 33 H (22-26) mmol/L ABG O2 Content 7.0 L 11.1 L (12.0-20.0) Vol % ABG Base Excess 2.8 H 8.6 H (-2-2) mmol/L Hemoglobin 7.0 L 7.3 L (12.0-16.0) G/DL Sodium (136-145) meq/L Potassium (3.5-5.1) meq/L Chloride (98-107) meq/L Carbon Dioxide (21.0-32.0) meq/L BUN (7-18) mg/dL Creatinine (0.50-1.00) mg/dL POC Glucose (68-110) mg/dl Random Glucose (74-106) mg/dL Calcium (8.5-10.1) mg/dL Phenytoin (10.0-20.0) mcg/mL 01/16/18 Range/Units 05:07 RBC (4.00-5.30) mil/mm3 Hgb (11.6-15.3) gm/dL Hct (35.0-46.0) % MCHC (32.0-36.0) % O2 Saturation (90-100) % ABG pH (7.380-7.420) ABG pCO2 (38-42) mmHg ABG pO2 (61-120) mmHg ABG HCO3 (22-26) mmol/L ABG O2 Content (12.0-20.0) Vol % ABG Base Excess (-2-2) mmol/L Hemoglobin (12.0-16.0) G/DL Sodium 148 H (136-145) meq/L Potassium 5.8 H (3.5-5.1) meq/L Chloride 108 H (98-107) meq/L Carbon Dioxide 32.2 H (21.0-32.0) meq/L BUN 23 H (7-18) mg/dL Creatinine (0.50-1.00) mg/dL POC Glucose (68-110) mg/dl Random Glucose 137 H (74-106) mg/dL Calcium (8.5-10.1) mg/dL Phenytoin (10.0-20.0) mcg/mL Short CBC 01/16/18 Range/Units 05:07 WBC 4.9 (4.0-11.0) th/mm3 Hgb 7.7 L (11.6-15.3) gm/dL Hct 24.9 L (35.0-46.0) % Plt Count 359 (150-450) th/mm3 BMP 01/15/18 01/16/18 05:32 05:07 Sodium 148 H 148 H Potassium 5.6 H 5.8 H Chloride 110 H 108 H Carbon Dioxide 32.6 H 32.2 H BUN 15 23 H Creatinine 0.30 L 0.60 Calcium 8.2 L 9.2 D <Suzy Fischer - 01/16/18 06:53> Abnormal lab results 01/14/18 01/14/18 01/14/18 Range/Units 12:09 16:29 21:25 RBC (4.00-5.30) mil/mm3 Hgb (11.6-15.3) gm/dL Hct (35.0-46.0) % MCHC (32.0-36.0) % Sodium (136-145) meq/L Potassium (3.5-5.1) meq/L Chloride (98-107) meq/L Carbon Dioxide (21.0-32.0) meq/L Creatinine (0.50-1.00) mg/dL POC Glucose 193 H 123 H 117 H (68-110) mg/dl Random Glucose (74-106) mg/dL Calcium (8.5-10.1) mg/dL Phenytoin (10.0-20.0) mcg/mL 01/15/18 01/15/18 01/15/18 Range/Units 05:32 05:32 09:07 RBC 2.66 L (4.00-5.30) mil/mm3 Hgb 8.2 L (11.6-15.3) gm/dL Hct 26.3 L (35.0-46.0) % MCHC 31.2 L (32.0-36.0) % Sodium 148 H (136-145) meq/L Potassium 5.6 H (3.5-5.1) meq/L Chloride 110 H (98-107) meq/L Carbon Dioxide 32.6 H (21.0-32.0) meq/L Creatinine 0.30 L (0.50-1.00) mg/dL POC Glucose 205 H (68-110) mg/dl Random Glucose 200 H (74-106) mg/dL Calcium 8.2 L (8.5-10.1) mg/dL Phenytoin 24.5 H (10.0-20.0) mcg/mL Short CBC 01/15/18 Range/Units 05:32 WBC 4.5 (4.0-11.0) th/mm3 Hgb 8.2 L (11.6-15.3) gm/dL Hct 26.3 L (35.0-46.0) % Plt Count 361 (150-450) th/mm3 BMP 01/15/18 05:32 Sodium 148 H Potassium 5.6 H Chloride 110 H Carbon Dioxide 32.6 H BUN 15 Creatinine 0.30 L Calcium 8.2 L <Gauley BridgeKaia G - 01/15/18 09:19> - Imaging Impressions Chest X-Ray 01/16/18 03:17 CONCLUSION: Interval intubation and right neck central line placement without complication. Stable infiltrates and effusions. <Suzy Fischer - 01/16/18 06:53> Physical Exam Vital signs: Vital Signs 01/15/18 08:00 01/15/18 12:00 01/15/18 16:00 Temperature 97.2 F L 97.9 F 97.3 F L Pulse Rate 84 80 54 L Respiratory Rate 16 17 16 Blood Pressure 101/58 L 98/61 L 96/60 L Pulse Oximetry 91 L 93 L 92 L 01/15/18 20:00 01/16/18 00:00 01/16/18 02:35 Temperature 97.6 F 96.1 F L Pulse Rate 70 62 Respiratory Rate 22 20 20 Blood Pressure 142/67 H 91/53 L Pulse Oximetry 98 98 100 01/16/18 04:00 01/16/18 05:00 01/16/18 05:10 Temperature 91.4 F L 92.5 F L Pulse Rate 74 74 Respiratory Rate 20 20 16 Blood Pressure 90/52 L 90/52 L Pulse Oximetry 100 Intake & Output 01/15/18 01/15/18 01/16/18 06:59 18:59 06:59 Intake Total 500 / 500 Output Total 675 / 675 60 / 60 Balance -675 / -675 440 / 440 Weight 70.5 kg 69.2 kg Intake: IV 500 / 500 NS Inj 500 ML @ Wide Open IV. 500 / 500 SIG BOLUS ONE Rx#:[id number] Output: Urine 675 / 675 Urine Amount (Catheter) 60 / 60 Indwelling Temp Sensing 60 / 60 Catheter Other: Date of Last Bowel Movement 01/15/18 01/16/18 # Incontinent Bowel Movements 2 <AaliyahSuzy - 01/16/18 06:53> Vital Signs 01/14/18 12:00 01/14/18 12:20 01/14/18 15:32 Temperature 98.0 F Pulse Rate 67 73 Respiratory Rate 16 Blood Pressure 98/54 L Pulse Oximetry 92 L 92 L 01/14/18 17:57 01/14/18 20:00 01/15/18 00:00 Temperature 97.7 F 97.8 F 97.6 F Pulse Rate 68 85 88 Respiratory Rate 16 20 20 Blood Pressure 102/60 104/64 98/57 L Pulse Oximetry 93 L 99 100 01/15/18 08:00 Temperature 97.2 F L Pulse Rate 84 Respiratory Rate 20 Blood Pressure 101/58 L Pulse Oximetry 91 L Intake & Output 01/14/18 01/15/18 01/15/18 18:59 06:59 18:59 Intake Total 349 / 349 Output Total 500 / 500 675 / 675 Balance -151 / -151 -675 / -675 Weight 70.5 kg Intake: Tube Feeding 349 / 349 Output: Urine 500 / 500 675 / 675 Other: Date of Last Bowel Movement 01/13/18 <Kaia Davis - 01/15/18 09:19> Narrative: GENERAL: frail elderly female laying in bed asleep NC in place, in no acute distress SKIN: Warm and dry. HEAD: Atraumatic. Normocephalic. EYES: No scleral icterus. No injection or drainage. ENT: No nasal bleeding or discharge. NECK: Trachea midline. No JVD. CARDIOVASCULAR: Regular rate and rhythm. RESPIRATORY: No accessory muscle use. Coarse breath sounds diffusely auscultated anteriorly GASTROINTESTINAL: Abdomen soft, non-tender, nondistended. Hepatic and splenic margins not palpable. PEG tube in place without signs of infections, no erythema , no discharge MUSCULOSKELETAL: Extremities without clubbing or cyanosis. No obvious deformities. 2+ pitting edema of bilateral UEs. 1+ pitting edema to mid [place] of bilateral LEs. NEUROLOGICAL: Asleep, unable to be aroused. Unable to performed full neurological assessment due to patient's mental status <Kaia Davis - 01/16/18 00:11> - Urinary Catheter Management Indwelling Temp Sensing Catheter Cath placed during this visit: yes <Suzy Fischer - 01/16/18 06:53> Reason for continuing: Hourly intake/output <Suzy Fischer - 01/16/18 06:53> Insertion date: 01/16/18 <Suzy Fischer - 01/16/18 06:53> Insertion time: 04:00 <Suzy Fischer - 01/16/18 06:53> Assessment and Plan - Assessment (1) UTI (urinary tract infection) Code(s): N39.0 - Urinary tract infection, site not specified Status: Acute (2) Oxygen desaturation Code(s): R09.02 - Hypoxemia Status: Resolved (3) Clostridium difficile diarrhea Code(s): A04.72 - Enterocolitis due to Clostridium difficile, not specified as recurrent Status: Acute (4) Sacral pressure ulcer Code(s): L89.159 - Pressure ulcer of sacral region, unspecified stage Status: Acute (5) Acute CVA (cerebrovascular accident) Code(s): I63.9 - Cerebral infarction, unspecified Status: Acute (6) Altered mental status, unspecified Code(s): R41.82 - Altered mental status, unspecified Status: Acute (7) Seizure Code(s): R56.9 - Unspecified convulsions Status: Acute (8) Poor nutrition Code(s): E63.9 - Nutritional deficiency, unspecified Status: Acute (9) Palliative care patient Code(s): Z51.5 - Encounter for palliative care Status: Acute (10) History of CVA (cerebrovascular accident) Code(s): Z86.73 - Personal history of transient ischemic attack (TIA), and cerebral infarction without residual deficits Status: Chronic (11) GERD (gastroesophageal reflux disease) Code(s): K21.9 - Gastro-esophageal reflux disease without esophagitis Status: Chronic (12) Atrial fibrillation Code(s): I48.91 - Unspecified atrial fibrillation Status: Chronic (13) CHF (congestive heart failure) Code(s): I50.9 - Heart failure, unspecified Status: Chronic (14) Hypertension Code(s): I10 - Essential (primary) hypertension Status: Chronic (15) Nutrition, metabolism, and development symptoms Code(s): R63.8 - Other symptoms and signs concerning food and fluid intake Status: Acute (16) DVT prophylaxis Status: Acute <Suzy Fischer - 01/16/18 06:53> (1) UTI (urinary tract infection) Code(s): N39.0 - Urinary tract infection, site not specified Status: Acute Plan: Pt spiked a low grade fever of 100.8F on 01/07/18. She has been afebrile since. UA shows moderate blood, moderate leukocyte esterase, and many bacteria. Patient has completed her course of Rocephin. Urine culture showed Fern albicans. Patient started on Fluconazole after discussion with Dr. Carolina of Neurology (due to fluconazole interacting with Dilantin and increasing its levels). -Rocephin 01/07-01/11 -Patient started on Fluconazole 01/12 (to continue for a total of 14 days) -Dilantin level is high at 24.5 (2) Oxygen desaturation Code(s): R09.02 - Hypoxemia Status: Resolved Plan: Patient with desaturation to the 80s with hypotension to the 80s systolic yesterday. Patient at high risk of aspiration due to tube feeding and being bedbound. Patient currently does not meet SIRS/sepsis criteria, however patient is in a delicate state due to her debilitating medical conditions. Low threshold to fully evaluate for possible infectious process. Currently resolved , will follow closely. -2 L nasal cannula applied, continue to monitor and titrate as necessary -Continue to closely monitor blood pressure (monitor IV fluid administration to avoid fluid overload) (3) Clostridium difficile diarrhea Code(s): A04.72 - Enterocolitis due to Clostridium difficile, not specified as recurrent Status: Acute Plan: Nursing staff reported up to 8 liquid bowel movements on 01/06/18. Patient was found to be positive for C.diff on 01/07. Rectal tube placed, laxative/stool softeners held, Vancomycin per G-tube started and Lactobacillus given 3 times daily. -Rectal tube discontinued as liquid stool has resolved -Vancomycin per G-tube 125 mg 4 times daily for a total of 10 days (01/08- ) -Lactobacillus given to assist with gut rod (4) Sacral pressure ulcer Code(s): L89.159 - Pressure ulcer of sacral region, unspecified stage Status: Acute Plan: Patient found to have stage IV pressure ulcer of the sacrum. Patient placed in appropriate bedding for patient due to sacral wound yesterday following wound care recommendations. -Nursing to rotate patient per protocol. (5) Acute CVA (cerebrovascular accident) Code(s): I63.9 - Cerebral infarction, unspecified Status: Acute Plan: Patient with new ischemic infarct, while on anticoagulation seen on CT head 01/03. Possibly this finding on CT on 01/03 due to new infarct or associated with extension of possible infarct on admission date which is now visible on CT scan. Will not be able to determine as patient was unable to have MRI on admission. Regardless, this is a large infarct and most recent CT from 01/13 shows further evolution with decreased edema (discussed with Dr. Carolina on 01/14) . The risk for this transitioning to hemorrhagic is high. Continue to hold anticoagulation. Neurology is following in this case. Her overall prognosis for meaningful recovery remains very poor. Patients family continue to desire aggressive care and management and are hopeful for a recovery to her baseline prior to admission. -F/u Head CT wo contrast in 2 weeks as an outpatient, afterwards will compare CT scans to determine whether to restart Eliquis, per Dr. Carolina by phone on -Continue supportive care with PT/OT (6) Altered mental status, unspecified Code(s): R41.82 - Altered mental status, unspecified Status: Acute Plan: Patient's mentation has not returned to baseline due to new evolving right MCA infarct. This is likely her new baseline. -Neurology following Started on Provigil 200mg PEG daily, Dilantin 130 mg liquid PEG BID, Dilantin 100mg liquid PEG @1300 and Divalproex Sprinkles 500mg PEG BID Eliquis stopped on 01/05 due to concern for hemorrhagic conversion of currently evolving ischemic CVA (7) Seizure Code(s): R56.9 - Unspecified convulsions Status: Acute Plan: Patient with history of seizure disorder. Witnessed seizure at skilled nursing in a.m. day of admission. No seizures reported during hospitalization. * See Plan above. (8) Poor nutrition Code(s): E63.9 - Nutritional deficiency, unspecified Status: Acute Plan: Patient with poor nutritional status. PEG tube placed and tube feeds started . -Jevity 1.5 at goal rate of 60 ml/hr over 20 hours with 100ml free water flushes Q4H as patient will receive additional free water flushes with medications. (9) Palliative care patient Code(s): Z51.5 - Encounter for palliative care Status: Acute Plan: Palliative care consulted to assist with goals of care. Per family request, the family has repeatedly asked from the palliative care team to not contact them. Appreciate the palliative care team's assistance (10) History of CVA (cerebrovascular accident) Code(s): Z86.73 - Personal history of transient ischemic attack (TIA), and cerebral infarction without residual deficits Status: Chronic Plan: Patient with history of CVA x2. On admission, patient with altered mental status. Last known normal: Day prior to admission. -Please see plan as above (11) GERD (gastroesophageal reflux disease) Code(s): K21.9 - Gastro-esophageal reflux disease without esophagitis Status: Chronic Plan: Patient with history of GERD. Medications: * Pantoprazole IV. (12) Atrial fibrillation Code(s): I48.91 - Unspecified atrial fibrillation Status: Chronic Plan: Patient with history of A. fib. Patient with irregular irregular rhythm on exam. Cardiology consulted as above Medications: * Will continue home Eliquis once cleared from Neurology post CVA * Continue carvedilol (13) CHF (congestive heart failure) Code(s): I50.9 - Heart failure, unspecified Status: Chronic Plan: Patient with history of congestive heart failure. Caution IVF. Medications: * Continue home Lasix and Coreg. (14) Hypertension Code(s): I10 - Essential (primary) hypertension Status: Chronic Plan: Patient with history of hypertension. Per neurology, goal less than 120/80. Medications: * Continue home Coreg. * Clonidine as needed for BP >180/110 (15) Nutrition, metabolism, and development symptoms Code(s): R63.8 - Other symptoms and signs concerning food and fluid intake Status: Acute Plan: Fluid: * Free water flushes Q4H and with medications. Monitor IVF to avoid fluid overload. Electrolyte: * Monitor and replete as necessary. Nutrition: * Tube feeds only with dietary consult. Free water flushes Q4H and with medications (16) DVT prophylaxis Status: Acute Plan: Prophylaxis: * SCDs. <Kaia Davis - 01/16/18 00:47> - Assessment and Plan Patient is an 87 year old female who presents to the [place] ED via EMS following a witnessed seizure. Patient with history of seizure disorder. Patient given Versed en-route to hospital and Keppra bolus in ED. Patient's GCS 8 at time of admission encounter. Patient originally admitted for evaluation and management of seizure versus CVA. New CVA in right MCA region found by head CT on 01/03 (likely the original inciting event for admission) with further evolution on 01/08. <Kaia Davis - 01/15/18 09:19> Discharge Planning: Pending placement CM consulted to assist <Kaia Davis - 01/15/18 09:19> - Attending Attestation Patient seen and examined on 01/15/18, discussed with resident team. I agree with assessment and management as documented and discussed with me. No new concerns. Pt seen with RN at bedside. Continue current plan of care. Anticipate discharge to SNF on Wednesday <Suzy Fischer - 01/16/18 06:53> <Kaia Davis - Last Filed: 01/16/18 00:47> (4) Sacral pressure ulcer Qualifiers: Pressure ulcer stage: stage 4 Qualified Code(s): L89.154 - Pressure ulcer of sacral region, stage 4 (6) Altered mental status, unspecified Qualifiers: Altered mental status type: unspecified Qualified Code(s): R41.82 - Altered mental status, unspecified <KarySuzy may - Last Filed: 01/16/18 06:53> (4) Sacral pressure ulcer Qualifiers: Pressure ulcer stage: stage 4 Qualified Code(s): L89.154 - Pressure ulcer of sacral region, stage 4 (6) Altered mental status, unspecified Qualifiers: Altered mental status type: unspecified Qualified Code(s): R41.82 - Altered mental status, unspecified <Kaia Davis - Last Filed: 01/16/18 00:47> (4) Sacral pressure ulcer Qualifiers: Pressure ulcer stage: stage 4 Qualified Code(s): L89.154 - Pressure ulcer of sacral region, stage 4 (6) Altered mental status, unspecified Qualifiers: Altered mental status type: unspecified Qualified Code(s): R41.82 - Altered mental status, unspecified <Suzy Fischer - Last Filed: 01/16/18 06:53> (4) Sacral pressure ulcer Qualifiers: Pressure ulcer stage: stage 4 Qualified Code(s): L89.154 - Pressure ulcer of sacral region, stage 4 (6) Altered mental status, unspecified Qualifiers: Altered mental status type: unspecified Qualified Code(s): R41.82 - Altered mental status, unspecified
[2018-01-15] MEDS: Potassium Chloride 10 MEQ ER Capsule PO SCH (09:24)
[2018-01-15] MEDS: Modafinil 200 MG Tablet G-TUBE SCH (09:24)
[2018-01-15] MEDS: Carvedilol 6.25 MG Tablet G-TUBE SCH ×2 (09:25→21:24)
[2018-01-15] MEDS: Furosemide 20 MG Tablet G-TUBE SCH (09:25)
[2018-01-15] MEDS: Multivitamin/Minerals Therapeutic Tablet PO SCH (09:25)
[2018-01-15] MEDS: Pantoprazole Inj 40 MG Vial IV.PUSH SCH (10:44)
[2018-01-15] MEDS: Insulin NovoLOG Aspart Correctional Sugar Inj SQ SCH ×4 (10:46→21:50)
[2018-01-16] MEDS ORDERED: Norepinephrine Inj 4 MG/4 ML Ampul ONE (01:56)
[2018-01-16] MEDS ORDERED: Sodium Chlor 0.9% Inj 500 ML IV.SIG ONE (02:05)
[2018-01-16 03:10] LABS: ABG Base Excess 2.8 mmol/L (-2-2); ABG PO2 58 mmHg (61-120)
[2018-01-16 03:11] LABS: ABG PCO2 207 mmHg (38-42)
--- NOTE | 2018-01-16 03:17 | P.CONCC ---
History of Present Illness Primary Care Provider: UNKNOWN History of Present Illness: 87 year old female admitted initially for evaluation of a witnessed seizure. The patient is [place] [facility] resident with multiple medical issues, including history of seizures on Keppra. Per chart review her baseline is alert, confused , and often combative at a [place] [facility]. She is verbal. She is able to feed herself; she consumes a pureed, nectar-thick diet. She spends most of her time in chair, with limited mobility. 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 The patient's daughter is a ICU nurse at outside of [facility] facility , who is requesting to continue aggressive management. Today early in the morning the patient developed respiratory arrest flowed by a cardiac arrest requiring multiple cycles of CPR and epinephrine injections. The initial rhythm was PEA versus asystolic. After approximately 15 minutes of CPR the patient regained spontaneous circulation. She was intubated just prior to arrest, and later central line and A-line was used due to hemodynamic instability. The patient's daughter was called during the CPR and again requested full code and aggressive management. Review of Systems unobtainable due to endotracheal tube, unobtainable due to mental condition Medications and Allergies Active Medications: Active Medications Albuterol (Duoneb Neb (Prn)) 1 ampul INH Q6HR NEB PRN PRN Reason: SOB/WHEEZING Last Admin: 01/14/18 00:52 Dose: 1 ampul Aspirin (Ecotrin) 325 mg PO DAILY [facility] Last Admin: 01/15/18 09:25 Dose: 325 mg Atorvastatin Calcium (Lipitor) 20 mg G-TUBE HS [facility] Last Admin: 01/15/18 21:24 Dose: 20 mg Carvedilol (Coreg) 6.25 mg G-TUBE Q12HR [facility] Last Admin: 01/15/18 21:24 Dose: 6.25 mg Clonidine HCl (Catapres) 0.1 mg PO Q6H PRN PRN Reason: SBP>180, DBP>110 Dextrose (D50w Vial) 50 ml IV.PUSH UNSCH PRN PRN Reason: HYPOGLYCEMIA-SEE COMMENTS Divalproex Sodium (Depakote Sprinkles) 500 mg G-TUBE BID [facility] Last Admin: 01/15/18 21:24 Dose: 500 mg Fluconazole (Diflucan) 200 mg PO DAILY@1800 [facility] Last Admin: 01/15/18 17:55 Dose: 200 mg Furosemide (Lasix) 20 mg G-TUBE DAILY [facility] Last Admin: 01/15/18 09:25 Dose: 20 mg Glucagon (Glucagon Inj) 1 mg OTHER UNSCH PRN PRN Reason: for Hypoglycemia Protocol Insulin Aspart (Novolog Insulin Suppl Scale Inj) 0 unit SQ ACHS [facility]; Protocol Last Admin: 01/15/18 21:50 Dose: 1 unit Lactobacillus Acidophilus (Lactinex Pkt) 1 gm G-TUBE TID [facility] Last Admin: 01/15/18 17:55 Dose: 1 gm Lorazepam (Ativan Inj) 0.5 mg IV.PUSH HS PRN PRN Reason: SLEEP Miscellaneous (Pill Splitter) 1 each OTHER UNSCH PRN PRN Reason: SEE LABEL COMMENTS Modafinil (Provigil) 200 mg G-TUBE DAILY [facility] Last Admin: 01/15/18 09:24 Dose: 200 mg Multivitamins/Minerals (Theragran-M) 1 tab PO DAILY [facility] Last Admin: 01/15/18 09:25 Dose: 1 tab Pantoprazole Sodium (Protonix Inj) 40 mg IV.PUSH Q24H [facility] Last Admin: 01/15/18 10:44 Dose: 40 mg Phenytoin (Dilantin Liq) 130 mg G-TUBE BID [facility] Last Admin: 01/15/18 21:25 Dose: 130 mg Phenytoin (Dilantin Liq) 100 mg G-TUBE DAILY@1300 [facility] Last Admin: 01/15/18 12:02 Dose: 100 mg Potassium Chloride (Kcl) 10 meq PO DAILY [facility] Last Admin: 01/15/18 09:24 Dose: 10 meq Sodium Chloride (Ns Flush) 2 ml IV.FLUSH BID [facility] Last Admin: 01/15/18 19:49 Dose: Not Given Sodium Chloride (Ns Flush) 2 ml IV.FLUSH UNSCH PRN PRN Reason: FLUSH AFTER USING IV ACCESS Last Admin: 01/07/18 22:19 Dose: 2 ml Vancomycin HCl (Vancomycin Po) 125 mg NG/OG QID [facility] Stop: 01/18/18 12:59 Last Admin: 01/15/18 17:55 Dose: 125 mg Allergies Allergy/AdvReac Type Severity Reaction Status Date / Time acetaminophen Allergy Severe nausea and Verified 01/01/18 11:09 vomiting propoxyphene Allergy Severe nausea and Verified 01/01/18 11:09 vomiting MRI PRECAUTION Allergy Severe UNKNOWN Uncoded 01/01/18 11:09 Home Medications Medication Instructions Recorded Confirmed Type acetaminophen [Tylenol] 650 mg PO Q6H PRN 01/01/18 01/01/18 History apixaban [Eliquis] 2.5 mg PO BID 01/01/18 01/01/18 History atorvastatin 20 mg PO HS 01/01/18 01/01/18 History carvedilol 3.125 mg PO BID 01/01/18 01/01/18 History dextromethorphan-guaifenesin 10 ml PO Q6H 01/01/18 01/01/18 History dextromethorphan-guaifenesin 1 tab PO BID PRN 01/01/18 01/01/18 History [Mucinex DM] docusate sodium [Colace] 100 mg PO Q8H PRN 01/01/18 01/01/18 History furosemide [Lasix] 20 mg PO DAILY 01/01/18 01/01/18 History gabapentin 100 mg PO BID 01/01/18 01/01/18 History hydrocodone-acetaminophen [[place]] 1 tab PO Q8H PRN 01/01/18 01/01/18 History ipratropium-albuterol 3 ml INHALATION Q6H PRN 01/01/18 01/01/18 History levetiracetam 500 mg PO BID 01/01/18 01/01/18 History mirtazapine 15 mg PO HS 01/01/18 01/01/18 History multivitamin,sm-knrs-cfzxjqkf 1 tab PO DAILY 01/01/18 01/01/18 History [Thera-M] omeprazole 20 mg PO DAILY 01/01/18 01/01/18 History polyethylene glycol 3350 [Miralax] 17 g PO DAILY 01/01/18 01/01/18 History potassium chloride 10 meq PO DAILY 01/01/18 01/01/18 History prednisone 2.5 mg PO DAILY 01/01/18 01/01/18 History Physical Exam Vital signs: Vital Signs 01/15/18 08:00 01/15/18 12:00 01/15/18 16:00 Temperature 97.2 F L 97.9 F 97.3 F L Pulse Rate 84 80 54 L Respiratory Rate 16 17 16 Blood Pressure 101/58 L 98/61 L 96/60 L Pulse Oximetry 91 L 93 L 92 L 01/15/18 20:00 Temperature 97.6 F Pulse Rate 70 Respiratory Rate 22 Blood Pressure 142/67 H Pulse Oximetry 98 Intake & Output 01/15/18 01/15/18 01/16/18 06:59 18:59 06:59 Intake Total 500 / 500 Output Total 675 / 675 Balance -675 / -675 500 / 500 Weight 70.5 kg Intake: IV 500 / 500 NS Inj 500 ML @ Wide Open IV. 500 / 500 SIG BOLUS ONE Rx#:[id number] Output: Urine 675 / 675 Other: Date of Last Bowel Movement 01/15/18 01/15/18 # Incontinent Bowel Movements 2 - Constitutional chronically ill appearing, obtunded - Routine HEENT Exam Head: Present: normocephalic, atraumatic Eye: Present: PERRL ENT: Present: mucous membranes moist - Routine Neck Exam Present: supple. Absent: JVD, carotid bruit - Routine Respiratory Exam Present: patient mechanically ventilated. Absent: accessory muscle use - Routine Cardiovascular Exam Present: RRR, S1, S2. Absent: gallop, rubs - Routine Abdominal Exam Present: soft, normoactive bowel sounds - Routine Skin Exam Present: intact. Absent: cyanosis, erythema - Routine Neurological Exam Present: motor deficit, altered mental status. Absent: clonus, moving all extremities - Detailed Neurological Exam: Coma Scale Eye Opening: Spontaneous Verbal Response: None Motor Response: Normal flexion [place] Coma Scale Total: 9 Assessment and Plan - Assessment and Plan Plan: Respiratory failure -Hypercapnic respiratory failure -Poor baseline mental status -Large right CVA -No weaning until neurologically improved -Most likely will need to tracheostomy for an airway protection -Extremely poor prognosis however family requires to continue mechanical ventilation and aggressive support Acute CVA -new ischemic infarct while on anticoagulation -Extremely high risk for hemorrhagic conversion due to size of the stroke -No anticoagulation recommended -Further management per neurology Seizure -Dilantin UTI -Rocephin 01/07-01/11 -Patient started on Fluconazole 01/12 (to continue for a total of 14 days) Clostridium difficile diarrhea -Vancomycin per G-tube 125 mg 4 times daily -Lactobacillus given to assist with gut rod DVT GI prophylaxis -Teds SCDs -Subcu heparin -Pepcid Critical Care: The total critical care time was 35 minutes. Time to perform other separately billable procedures was not included in the critical care time.
--- NOTE | 2018-01-16 03:21 | P.PNADD ---
Addendum to Inpatient Note Reason for Addendum: Additional Documentation Additional information: Isaiah called at [phone] and residents were paged. Upon Arrival, Pt was hypotensive with systolic BPs in the 50s and a faint pulse. Vitals at that time were BP 51/33, HR 70, O2 Sat: 81%. Nursing staff had bolused a L of NS, suctioned her airway of copious amounts of mucous, and were preparing to transfer to ICU 1314. Upon arrival to 1314, patient continued to have low BPs and a faint pulse. Family members were notified of the patients declining status and requested for aggressive treatment, CPR and intubation. Wellness Guide Dr. Raay was called and consulted. After transporting the patient to 1314, she continued to have low O2 Sat. Respiratory therapy began suctioning her airway, which again produced copious amounts of mucous. She was then intubated in an attempt to have better access to her airway to improve oxygen saturation. 0228 Code blue was called Patient went into cardiac arrest and asystole was seen on the monitor. CPR was initiated, AED pads were placed and 1 mg of epinephrine was given. 0231 1 mg of epinephrine, 100 mg of Sodium Bicarb [id number] mg Calcium was ordered by doctor Dorota 0233 rhythm was assessed and remained in asystole. AED suggested no shock advised and compressions were continued. 1 mg of Epinephrine was given. 0236 1 mg epinephrine was given. Rhythm was assessed and ROSC was present. Compressions were stopped. Patient remained intubated and bagged. 0236 Epi drip was placed (2mg/250 ml running at 10 mcg/min). Arterial line and femoral lines was placed. Patient started blinking her eyes and opening her mouth but was nonverbal. Family was again called and informed of the change of events and patient's current status. They are preparing to travel to the hospital. MADAI Conroy, Dr. Dorota Fischer
[2018-01-16 04:08] LABS: ABG Base Excess 8.6 mmol/L (-2-2); ABG PCO2 52 mmHg (38-42); ABG PO2 381 mmHg (61-120)
[2018-01-16] MEDS ORDERED: Calcium Chloride Inj 1 GM/10 ML Syringe IV.CONT ONE (05:00)
[2018-01-16] MEDS ORDERED: Sodium Bicarbonate 8.4% Inj 50 MEQ/50 ML Syringe IV.CONT ONE (05:00)
--- NOTE | 2018-01-16 05:06 | XR ---
EXAM DATE: 01/16/2018 4:25 AM EDT AGE/SEX: 87 years / Female INDICATIONS: Post central line placement. Post intubation. CLINICAL DATA: This is the patient's subsequent encounter. Patient reports that signs and symptoms h ave been present for 2 weeks and indicates a pain score of Nonresponsive. MEDICAL/SURGICAL HISTORY: . Hypertension. Congestive heart failure. CVA. Left sided weakness. D ementia. Seizures. Arthritis. . Hysterectomy. Cervical fusion. Right hip replacement. COMPARISON: C, CHEST 1V SINGLE AP, 01/12/2018. . FINDINGS: A pacing implement is present with control pack over left upper chest. Endotracheal tube is present w ith tip several centimeters above the lili. Right neck central line descends into SVC. Dense consol idation in the left lung base and small associated effusion are unchanged. Hazy density at the right base is likely layering effusion, also grossly stable. Visualized cardiac contours are unchanged. CONCLUSION: Interval intubation and right neck central line placement without complication. Stable infiltrates an d effusions. Electronically signed by: Nino Hightower MD 01/16/2018 5:05 AM EDT
[2018-01-16 05:56] LABS: Hematocrit 24.9 % (35.0-46.0); Hemoglobin 7.7 gm/dL (11.6-15.3); Mean Corpuscular Hemoglobin 30.1 pg (27.0-34.0); Mean Corpuscular Volume 97.4 fL (80.0-100.0); Mean Platelet Volume 8.1 fL (7.0-11.0); Platelet Count 359 th/mm3 (150-450); Red Blood Count 2.56 mil/mm3 (4.00-5.30); Red Cell Distribution Width 17.2 % (11.6-17.2); White Blood Count 4.9 th/mm3 (4.0-11.0)
[2018-01-16 06:22] LABS: Anion Gap 8 meq/L (5-15); Blood Urea Nitrogen 23 mg/dL (7-18); Calcium 9.2 mg/dL (8.5-10.1); Carbon Dioxide 32.2 meq/L (21.0-32.0); Chloride 108 meq/L (98-107); Glomerular Filtration Rate Greater Than 89 mL/min (>89); Glucose,Random 137 mg/dL (74-106); Potassium 5.8 meq/L (3.5-5.1); Sodium 148 meq/L (136-145)
[2018-01-16 06:34] LABS: Mean Corpuscular HGB Conc 30.9 % (32.0-36.0)
[2018-01-16] MEDS: Phenytoin Susp 100 MG/4 ML UDC G-TUBE SCH ×3 (09:11→23:52)
[2018-01-16] MEDS: Potassium Chloride 10 MEQ ER Capsule PO SCH (09:12)
--- NOTE | 2018-01-16 10:15 | P.PNCC ---
Subjective Subjective Remarks/Hospital Course: 87 year old female admitted initially for evaluation of a witnessed seizure. The patient is care home resident with multiple medical issues, including history of seizures on Keppra. Per chart review her baseline is alert, confused , and often combative at a care home. She is verbal. She is able to feed herself; she consumes a pureed, nectar-thick diet. She spends most of her time in chair, with limited mobility. 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 The patient's daughter is a ICU nurse at outside of [facility] facility , who is requesting to continue aggressive management. Today early in the morning the patient developed respiratory arrest flowed by a cardiac arrest requiring multiple cycles of CPR and epinephrine injections. The initial rhythm was PEA versus asystolic. After approximately 15 minutes of CPR the patient regained spontaneous circulation. She was intubated just prior to arrest, and later central line and A-line was used due to hemodynamic instability. The patient's daughter was called during the CPR and again requested full code and aggressive management. 01/16 1000 hrs: Gas exchange now acceptable and pH problems have been corrected with ventilator manipulations. The etiology of the rest appears to have been a hypercapnic respiratory acidosis superimposed on a large dominant hemisphere acute stroke. Chest x-ray reviewed tubes and lines in good position. Cardiac rhythm appears to be atrial paced. The QRS is wide and I suspect within there somewhere is a sequential ventricular spike although I do not see it on the monitor. Potassium was elevated at 5.8 we will follow that closely. At present she is requiring 8 mcg/min of epinephrine and urine output has been about 40 mL's. Patient remains critically ill. Objective Vital Signs / I&O: Vital Signs 01/15/18 12:00 01/15/18 16:00 01/15/18 20:00 Temperature 97.9 F 97.3 F L 97.6 F Pulse Rate 80 54 L 70 Respiratory Rate 17 16 22 Blood Pressure 98/61 L 96/60 L 142/67 H Pulse Oximetry 93 L 92 L 98 01/16/18 00:00 01/16/18 02:35 01/16/18 04:00 Temperature 96.1 F L 91.4 F L Pulse Rate 62 74 Respiratory Rate 20 20 20 Blood Pressure 91/53 L 90/52 L Pulse Oximetry 98 100 01/16/18 05:00 01/16/18 05:10 01/16/18 07:00 Temperature 92.5 F L 97.4 F L Pulse Rate 74 60 Respiratory Rate 20 16 Blood Pressure 90/52 L 87/54 L Pulse Oximetry 100 100 01/16/18 09:07 Temperature Pulse Rate Respiratory Rate 16 Blood Pressure Pulse Oximetry 100 Intake & Output 01/15/18 01/16/18 01/16/18 18:59 06:59 18:59 Intake Total 500 / 500 250 / 250 Output Total 60 / 60 Balance 440 / 440 250 / 250 Weight 69.2 kg Intake: IV 500 / 500 250 / 250 EPINEPHrine (1:1000) Inj 2 MG 250 / 250 In D5W Inj 248 ML @ 3 MCG/MIN 22.5 mls/hr IV.CONT TITRATE PRN Rx#:[id number] NS Inj 500 ML @ Wide Open IV. 500 / 500 SIG BOLUS ONE Rx#:[id number] Output: Urine Amount (Catheter) 60 / 60 Indwelling Temp Sensing 60 / 60 Catheter Other: Date of Last Bowel Movement 01/15/18 01/16/18 01/16/18 # Incontinent Bowel Movements 2 Result Diagrams: 01/16/18 05:07 01/16/18 05:07 Objective Remarks: Physical Exam Vital signs: Vital Signs 01/15/18 08:00 01/15/18 12:00 01/15/18 16:00 Temperature 97.2 F L 97.9 F 97.3 F L Pulse Rate 84 80 54 L Respiratory Rate 16 17 16 Blood Pressure 101/58 L 98/61 L 96/60 L Pulse Oximetry 91 L 93 L 92 L 01/15/18 20:00 Temperature 97.6 F Pulse Rate 70 Respiratory Rate 22 Blood Pressure 142/67 H Pulse Oximetry 98 Intake & Output 01/15/18 01/15/18 01/16/18 06:59 18:59 06:59 Intake Total 500 / 500 Output Total 675 / 675 Balance -675 / -675 500 / 500 Weight 70.5 kg Intake: IV 500 / 500 NS Inj 500 ML @ Wide Open IV. 500 / 500 SIG BOLUS ONE Rx#:[id number] Output: Urine 675 / 675 Other: Date of Last Bowel Movement 01/15/18 01/15/18 # Incontinent Bowel Movements 2 - Constitutional chronically ill appearing, obtunded, unresponsive - Routine HEENT Exam Head: Present: normocephalic, atraumatic Eye: Present: PERRL ENT: Present: mucous membranes moist - Routine Neck Exam Present: supple. Orally intubated. Absent: JVD, carotid bruit - Routine Respiratory Exam Present: patient mechanically ventilated. Good bilateral breath sounds. Light wheezes, acceptable air movement - Routine Cardiovascular Exam Present: RRR, S1, S2. No JVD - Routine Abdominal Exam Present: soft, nondistended, no guarding, quiet bowel sounds - Routine Skin Exam Present: intact. Tepid. - Routine Neurological Exam Present: motor deficit, altered mental status. - Detailed Neurological Exam: Coma Scale Opens eyes, moves left foot spontaneously, otherwise unresponsive. Assessment and Plan - Assessment and Plan Plan: Respiratory failure -Hypercapnic respiratory failure -Poor baseline mental status -Large right CVA -No weaning until neurologically improved -Most likely will need to tracheostomy for an airway protection -Extremely poor prognosis however family request to continue mechanical ventilation and aggressive support Acute CVA -new ischemic infarct while on anticoagulation -Extremely high risk for hemorrhagic conversion due to size of the stroke -No anticoagulation recommended -Further management per neurology Seizure -Dilantin, additional 8 ED ordered by neurology service. UTI -Rocephin 01/07-01/11 -Patient started on Fluconazole 01/12 (to continue for a total of 14 days) Clostridium difficile diarrhea -Vancomycin per G-tube 125 mg 4 times daily -Lactobacillus given to assist with gut rod DVT GI prophylaxis -Teds SCDs -Subcu heparin -Pepcid Overall impression: This woman is critically ill following a cardiac arrest from respiratory acidosis. Her neurologic status is unstable as well and her overall prognosis is guarded. The metabolic elements leading to arrest have been corrected and neurologic evaluation is ongoing. Critical care 45 minutes
[2018-01-16] MEDS: Modafinil 200 MG Tablet G-TUBE SCH (10:29)
[2018-01-16] MEDS: Pantoprazole Inj 40 MG Vial IV.PUSH SCH (10:29)
[2018-01-16] MEDS: Carvedilol 6.25 MG Tablet G-TUBE SCH (10:29)
[2018-01-16] MEDS: Furosemide 20 MG Tablet G-TUBE SCH (10:29)
[2018-01-16] MEDS: Divalproex 125 MG Sprinkles Capsule G-TUBE SCH ×2 (10:50→23:51)
--- NOTE | 2018-01-16 12:38 | P.PNFP ---
Subjective Interval history: Patient seen and evaluated by medical team this morning. Overnight patient became hypotensive with the oxygenation leading to cardiopulmonary arrest. LEILA KLINE was called. Patient was intubated and regained spontaneous circulation. This morning patient remains intubated. Patient also hypotensive despite being on epinephrine drip. Patient's heart rate appears to be atrially placed with a bradycardic rate on the monitor. Per nursing report, contact has been made with the patient's son who again reiterates aggressive goals of care at this time. Patient's POA, Kaci Koenig at [phone], was contacted. We discussed the events overnight in the critical status of the patient. Ms. Koenig had multiple questions regarding the patient's arrest, pacemaker, and respiratory status all of which were answered. Ms. Koenig also reiterated that at this time her mother was to remain full code as her family recently "took a vote" to continue aggressive care. Ms. Koenig also a possible "timeframe" regarding her mother's possible passing. I reiterated that her mother was in critical condition and his medical providers we are unable to predict possible timeframes or outcomes. <Ananda Ribera H - 01/16/18 14:03> Results - Labs Result diagrams: 01/16/18 05:07 01/16/18 12:20 <Suzy Fischer - 01/16/18 21:10> Abnormal lab results 01/15/18 01/16/18 01/16/18 Range/Units 21:42 01:44 02:08 RBC (4.00-5.30) mil/mm3 Hgb (11.6-15.3) gm/dL Hct (35.0-46.0) % MCHC (32.0-36.0) % O2 Saturation 70 L* (90-100) % ABG pH 6.88 L* (7.380-7.420) ABG pCO2 207 H* (38-42) mmHg ABG pO2 58 L* (61-120) mmHg ABG HCO3 36 H (22-26) mmol/L ABG O2 Content 7.0 L (12.0-20.0) Vol % ABG Base Excess 2.8 H (-2-2) mmol/L Hemoglobin 7.0 L (12.0-16.0) G/DL Sodium (136-145) meq/L Potassium (3.5-5.1) meq/L Chloride (98-107) meq/L Carbon Dioxide (21.0-32.0) meq/L BUN (7-18) mg/dL POC Glucose 171 H 188 H (68-110) mg/dl Random Glucose (74-106) mg/dL 01/16/18 01/16/18 01/16/18 Range/Units 03:49 05:07 05:07 RBC 2.56 L (4.00-5.30) mil/mm3 Hgb 7.7 L (11.6-15.3) gm/dL Hct 24.9 L (35.0-46.0) % MCHC 30.9 L (32.0-36.0) % O2 Saturation (90-100) % ABG pH 7.43 H (7.380-7.420) ABG pCO2 52 H* (38-42) mmHg ABG pO2 381 H (61-120) mmHg ABG HCO3 33 H (22-26) mmol/L ABG O2 Content 11.1 L (12.0-20.0) Vol % ABG Base Excess 8.6 H (-2-2) mmol/L Hemoglobin 7.3 L (12.0-16.0) G/DL Sodium 148 H (136-145) meq/L Potassium 5.8 H (3.5-5.1) meq/L Chloride 108 H (98-107) meq/L Carbon Dioxide 32.2 H (21.0-32.0) meq/L BUN 23 H (7-18) mg/dL POC Glucose (68-110) mg/dl Random Glucose 137 H (74-106) mg/dL 01/16/18 Range/Units 12:20 RBC (4.00-5.30) mil/mm3 Hgb (11.6-15.3) gm/dL Hct (35.0-46.0) % MCHC (32.0-36.0) % O2 Saturation (90-100) % ABG pH (7.380-7.420) ABG pCO2 (38-42) mmHg ABG pO2 (61-120) mmHg ABG HCO3 (22-26) mmol/L ABG O2 Content (12.0-20.0) Vol % ABG Base Excess (-2-2) mmol/L Hemoglobin (12.0-16.0) G/DL Sodium 146 H (136-145) meq/L Potassium 5.7 H (3.5-5.1) meq/L Chloride (98-107) meq/L Carbon Dioxide 32.1 H (21.0-32.0) meq/L BUN 25 H (7-18) mg/dL POC Glucose (68-110) mg/dl Random Glucose 187 H (74-106) mg/dL Short CBC 01/16/18 Range/Units 05:07 WBC 4.9 (4.0-11.0) th/mm3 Hgb 7.7 L (11.6-15.3) gm/dL Hct 24.9 L (35.0-46.0) % Plt Count 359 (150-450) th/mm3 BMP 01/16/18 01/16/18 05:07 12:20 Sodium 148 H 146 H Potassium 5.8 H 5.7 H Chloride 108 H 105 Carbon Dioxide 32.2 H 32.1 H BUN 23 H 25 H Creatinine 0.60 0.60 Calcium 9.2 D 8.7 <Suzy Fischer - 01/16/18 21:10> Abnormal lab results 01/15/18 01/15/18 01/15/18 Range/Units 15:18 17:53 21:42 RBC (4.00-5.30) mil/mm3 Hgb (11.6-15.3) gm/dL Hct (35.0-46.0) % MCHC (32.0-36.0) % O2 Saturation (90-100) % ABG pH (7.380-7.420) ABG pCO2 (38-42) mmHg ABG pO2 (61-120) mmHg ABG HCO3 (22-26) mmol/L ABG O2 Content (12.0-20.0) Vol % ABG Base Excess (-2-2) mmol/L Hemoglobin (12.0-16.0) G/DL Sodium (136-145) meq/L Potassium (3.5-5.1) meq/L Chloride (98-107) meq/L Carbon Dioxide (21.0-32.0) meq/L BUN (7-18) mg/dL POC Glucose 153 H 124 H 171 H (68-110) mg/dl Random Glucose (74-106) mg/dL 01/16/18 01/16/18 01/16/18 Range/Units 01:44 02:08 03:49 RBC (4.00-5.30) mil/mm3 Hgb (11.6-15.3) gm/dL Hct (35.0-46.0) % MCHC (32.0-36.0) % O2 Saturation 70 L* (90-100) % ABG pH 6.88 L* 7.43 H (7.380-7.420) ABG pCO2 207 H* 52 H* (38-42) mmHg ABG pO2 58 L* 381 H (61-120) mmHg ABG HCO3 36 H 33 H (22-26) mmol/L ABG O2 Content 7.0 L 11.1 L (12.0-20.0) Vol % ABG Base Excess 2.8 H 8.6 H (-2-2) mmol/L Hemoglobin 7.0 L 7.3 L (12.0-16.0) G/DL Sodium (136-145) meq/L Potassium (3.5-5.1) meq/L Chloride (98-107) meq/L Carbon Dioxide (21.0-32.0) meq/L BUN (7-18) mg/dL POC Glucose 188 H (68-110) mg/dl Random Glucose (74-106) mg/dL 01/16/18 01/16/18 Range/Units 05:07 05:07 RBC 2.56 L (4.00-5.30) mil/mm3 Hgb 7.7 L (11.6-15.3) gm/dL Hct 24.9 L (35.0-46.0) % MCHC 30.9 L (32.0-36.0) % O2 Saturation (90-100) % ABG pH (7.380-7.420) ABG pCO2 (38-42) mmHg ABG pO2 (61-120) mmHg ABG HCO3 (22-26) mmol/L ABG O2 Content (12.0-20.0) Vol % ABG Base Excess (-2-2) mmol/L Hemoglobin (12.0-16.0) G/DL Sodium 148 H (136-145) meq/L Potassium 5.8 H (3.5-5.1) meq/L Chloride 108 H (98-107) meq/L Carbon Dioxide 32.2 H (21.0-32.0) meq/L BUN 23 H (7-18) mg/dL POC Glucose (68-110) mg/dl Random Glucose 137 H (74-106) mg/dL Short CBC 01/16/18 Range/Units 05:07 WBC 4.9 (4.0-11.0) th/mm3 Hgb 7.7 L (11.6-15.3) gm/dL Hct 24.9 L (35.0-46.0) % Plt Count 359 (150-450) th/mm3 BMP 01/16/18 05:07 Sodium 148 H Potassium 5.8 H Chloride 108 H Carbon Dioxide 32.2 H BUN 23 H Creatinine 0.60 Calcium 9.2 D <Ananda Ribera H - 01/16/18 12:38> - Imaging Impressions Chest X-Ray 01/16/18 03:17 CONCLUSION: Interval intubation and right neck central line placement without complication. Stable infiltrates and effusions. <Suzy Fischer - 01/16/18 21:10> Impressions Chest X-Ray 01/16/18 03:17 CONCLUSION: Interval intubation and right neck central line placement without complication. Stable infiltrates and effusions. <Ananda Ribera H - 01/16/18 12:38> Physical Exam Vital signs: Vital Signs 01/16/18 00:00 01/16/18 02:35 01/16/18 04:00 Temperature 96.1 F L 91.4 F L Pulse Rate 62 74 Respiratory Rate 20 20 20 Blood Pressure 91/53 L 90/52 L Pulse Oximetry 98 100 01/16/18 05:00 01/16/18 05:10 01/16/18 07:00 Temperature 92.5 F L 97.4 F L Pulse Rate 74 60 Respiratory Rate 20 16 Blood Pressure 90/52 L 87/54 L Pulse Oximetry 100 100 01/16/18 09:07 01/16/18 10:32 01/16/18 12:27 Temperature 98.1 F 99.3 F Pulse Rate 60 59 L Respiratory Rate 16 16 16 Blood Pressure 97/39 L 99/35 L Pulse Oximetry 100 100 100 01/16/18 12:39 01/16/18 16:00 01/16/18 16:38 Temperature 99.9 F H Pulse Rate 62 Respiratory Rate 18 18 Blood Pressure 108/35 L Pulse Oximetry 100 100 100 Intake & Output 01/16/18 01/16/18 01/17/18 06:59 18:59 06:59 Intake Total 500 / 500 1500 / 1500 Output Total 60 / 60 100 / 100 Balance 440 / 440 1400 / 1400 Weight 69.2 kg Intake: IV 500 / 500 1500 / 1500 EPINEPHrine (1:1000) Inj 2 MG 1000 / 1000 In D5W Inj 248 ML @ 3 MCG/MIN 22.5 mls/hr IV.CONT TITRATE PRN Rx#:[id number] EPINEPHrine (1:1000) Inj 4 MG 500 / 500 In D5W Inj 496 ML @ 3 MCG/MIN 22.5 mls/hr IV.CONT TITRATE PRN Rx#:[id number] NS Inj 500 ML @ Wide Open IV. 500 / 500 SIG BOLUS ONE Rx#:[id number] Output: Urine Amount (Catheter) 60 / 60 100 / 100 Indwelling Temp Sensing 60 / 60 100 / 100 Catheter Other: Date of Last Bowel Movement 01/16/18 01/16/18 <Suzy Fischer - 01/16/18 21:10> Vital Signs 01/15/18 16:00 01/15/18 20:00 01/16/18 00:00 Temperature 97.3 F L 97.6 F 96.1 F L Pulse Rate 54 L 70 62 Respiratory Rate 16 22 20 Blood Pressure 96/60 L 142/67 H 91/53 L Pulse Oximetry 92 L 98 98 01/16/18 02:35 01/16/18 04:00 01/16/18 05:00 Temperature 91.4 F L 92.5 F L Pulse Rate 74 74 Respiratory Rate 20 20 20 Blood Pressure 90/52 L 90/52 L Pulse Oximetry 100 01/16/18 05:10 01/16/18 07:00 01/16/18 09:07 Temperature 97.4 F L Pulse Rate 60 Respiratory Rate 16 16 Blood Pressure 87/54 L Pulse Oximetry 100 100 100 01/16/18 10:32 01/16/18 12:27 Temperature 98.1 F 99.3 F Pulse Rate 60 59 L Respiratory Rate 16 16 Blood Pressure 97/39 L 99/35 L Pulse Oximetry 100 100 Intake & Output 01/15/18 01/16/1801/16/18 18:59 06:59 18:59 Intake Total 500 / 500 500 / 500 Output Total 60 / 60 Balance 440 / 440 500 / 500 Weight 69.2 kg Intake: IV 500 / 500 500 / 500 EPINEPHrine (1:1000) Inj 2 MG 500 / 500 In D5W Inj 248 ML @ 3 MCG/MIN 22.5 mls/hr IV.CONT TITRATE PRN Rx#:[id number] NS Inj 500 ML @ Wide Open IV. 500 / 500 SIG BOLUS ONE Rx#:[id number] Output: Urine Amount (Catheter) 60 / 60 Indwelling Temp Sensing 60 / 60 Catheter Other: Date of Last Bowel Movement 01/15/18 01/16/18 01/16/18 # Incontinent Bowel Movements 2 <Ananda Ribera H - 01/16/18 12:38> Narrative: GENERAL: Frail appearing elderly woman lying nonresponsive except to tactile stimuli currently intubated. Patient will not open eyes upon verbal cues and does not follow commands. SKIN: Cool and dry on upper extremities, abdomen, and lower extremities. PEG tube appears clean and intact without skin breakdown or signs of infection. Sacral Wound: Wound care dressing covering a stage IV sacral pressure ulcer measuring approximately 7 x 9 cm with surrounding erythema without drainage or hemorrhage appreciated. (Not examined on today's exam) HEENT: Atraumatic, normocephalic. Patient unable to follow commands to examine eyes or mouth. PERRLA. No visible JVD or LAD appreciated. CARDIOVASCULAR: Regular rate and rhythm without obvious murmurs, gallops, or rubs. 2+ pulses in all four extremities. RESPIRATORY: Intubated with ET tube in proper position. Clear to auscultation anteriorly, difficult to auscultate due to ventilator reverberation. No obvious CRW. No increased work of breathing at this time. GASTROINTESTINAL: Abdomen soft, non-tender, nondistended with positive but soft bowel sounds. No masses appreciated. PEG tube in place without signs of abnormalities with abdominal binder. MUSCULOSKELETAL: No cyanosis or edema. No calf tenderness. NEURO/PSYCH: GCS 6 (E2V1M3) Patient unable to communicate which is her baseline. Full neurologic evaluation unable to be completed due to mental status. <Ananda Ribera H - 01/16/18 14:03> - Urinary Catheter Management Indwelling Temp Sensing Catheter Cath placed during this visit: no <Suzy Fischer - 01/16/18 21:10> yes <Ananda Ribera - 01/16/18 14:03> Reason for continuing: Hourly intake/output <Ananda Ribera - 01/16/18 12:38> Insertion date: 01/16/18 <Ananda Ribera - 01/16/18 12:38> Insertion time: 04:00 <Ananda Ribera - 01/16/18 12:38> Assessment and Plan - Assessment (1) Cardiopulmonary arrest with successful resuscitation Code(s): I46.9 - Cardiac arrest, cause unspecified Status: Acute (2) UTI (urinary tract infection) Code(s): N39.0 - Urinary tract infection, site not specified Status: Acute (3) Clostridium difficile diarrhea Code(s): A04.72 - Enterocolitis due to Clostridium difficile, not specified as recurrent Status: Acute (4) Sacral pressure ulcer Code(s): L89.159 - Pressure ulcer of sacral region, unspecified stage Status: Acute (5) Acute CVA (cerebrovascular accident) Code(s): I63.9 - Cerebral infarction, unspecified Status: Acute (6) Altered mental status, unspecified Code(s): R41.82 - Altered mental status, unspecified Status: Acute (7) Seizure Code(s): R56.9 - Unspecified convulsions Status: Acute (8) Poor nutrition Code(s): E63.9 - Nutritional deficiency, unspecified Status: Acute (9) Palliative care patient Code(s): Z51.5 - Encounter for palliative care Status: Acute (10) History of CVA (cerebrovascular accident) Code(s): Z86.73 - Personal history of transient ischemic attack (TIA), and cerebral infarction without residual deficits Status: Chronic (11) GERD (gastroesophageal reflux disease) Code(s): K21.9 - Gastro-esophageal reflux disease without esophagitis Status: Chronic (12) Atrial fibrillation Code(s): I48.91 - Unspecified atrial fibrillation Status: Chronic (13) CHF (congestive heart failure) Code(s): I50.9 - Heart failure, unspecified Status: Chronic (14) Hypertension Code(s): I10 - Essential (primary) hypertension Status: Chronic (15) Nutrition, metabolism, and development symptoms Code(s): R63.8 - Other symptoms and signs concerning food and fluid intake Status: Acute (16) DVT prophylaxis Status: Acute <Suzy Fischer - 01/16/18 21:10> (1) Cardiopulmonary arrest with successful resuscitation Code(s): I46.9 - Cardiac arrest, cause unspecified Status: Acute Plan: Patient with cardiopulmonary arrest on the morning of 01/16/18 likely due to hypercapnic respiratory acidosis with severe CVA. Patient with extremely poor prognosis due to multiple comorbidities and will likely need tracheotomy for continued airway protection. Family contacted and requests aggressive care goals at this time. -Critical care consulted, appreciate recommendations -Patient currently intubated for respiratory support, will likely need tracheotomy for continued airway management -Blood pressure currently maintained on epinephrine drip -PEG tube feeds for management of nutrition (2) UTI (urinary tract infection) Code(s): N39.0 - Urinary tract infection, site not specified Status: Acute Plan: Pt spiked a low grade fever of 100.8F on 01/07/18. She has been afebrile since. UA shows moderate blood, moderate leukocyte esterase, and many bacteria. Patient has completed her course of Rocephin. Urine culture showed Fern albicans. Patient started on Fluconazole after discussion with Dr. Carolina of Neurology (due to fluconazole interacting with Dilantin and increasing its levels). -Rocephin 01/07-01/11 -Patient started on Fluconazole 01/12 (to continue for a total of 14 days) -Dilantin level is high at 24.5, neurology to manage (3) Clostridium difficile diarrhea Code(s): A04.72 - Enterocolitis due to Clostridium difficile, not specified as recurrent Status: Acute Plan: Nursing staff reported up to 8 liquid bowel movements on 01/06/18. Patient was found to be positive for C.diff on 01/07. Rectal tube placed, laxative/stool softeners held, Vancomycin per G-tube started and Lactobacillus given 3 times daily. -Rectal tube discontinued as liquid stool has resolved -Vancomycin per G-tube 125 mg 4 times daily for a total of 10 days (01/08- ) -Lactobacillus given to assist with gut rod (4) Sacral pressure ulcer Code(s): L89.159 - Pressure ulcer of sacral region, unspecified stage Status: Acute Plan: Patient found to have stage IV pressure ulcer of the sacrum. Patient placed in appropriate bedding for patient due to sacral wound yesterday following wound care recommendations. -Nursing to rotate patient per protocol. -Wound care and wound physician consulted, appreciate recommendations (5) Acute CVA (cerebrovascular accident) Code(s): I63.9 - Cerebral infarction, unspecified Status: Acute Plan: Patient with new ischemic infarct, while on anticoagulation seen on CT head 01/03. Possibly this finding on CT on 01/03 due to new infarct or associated with extension of possible infarct on admission date which is now visible on CT scan. Will not be able to determine as patient was unable to have MRI on admission. Regardless, this is a large infarct and most recent CT from 01/13 shows further evolution with decreased edema (discussed with Dr. Carolina on 01/14) . The risk for this transitioning to hemorrhagic is high. Continue to hold anticoagulation. Neurology is following in this case. Her overall prognosis for meaningful recovery remains very poor. Patients family continue to desire aggressive care and management and are hopeful for a recovery to her baseline prior to admission. -F/u Head CT wo contrast in 2 weeks as an outpatient, afterwards will compare CT scans to determine whether to restart Eliquis -Continue supportive care with PT/OT (6) Altered mental status, unspecified Code(s): R41.82 - Altered mental status, unspecified Status: Acute Plan: Patient's mentation has not returned to baseline due to new evolving right MCA infarct. This is likely her new baseline. -Neurology following Started on Provigil 200mg PEG daily, Dilantin 130 mg liquid PEG BID, Dilantin 100mg liquid PEG @1300 and Divalproex Sprinkles 500mg PEG BID Eliquis stopped on 01/05 due to concern for hemorrhagic conversion of currently evolving ischemic CVA (7) Seizure Code(s): R56.9 - Unspecified convulsions Status: Acute Plan: Patient with history of seizure disorder. Witnessed seizure at alf in a.m. day of admission. No seizures reported during hospitalization. * See Plan above. (8) Poor nutrition Code(s): E63.9 - Nutritional deficiency, unspecified Status: Acute Plan: Patient with poor nutritional status. PEG tube placed and tube feeds started . -Jevity 1.5 at goal rate of 55 ml/hr over 20 hours with 100ml free water flushes Q4H as patient will receive additional free water flushes with medications. (9) Palliative care patient Code(s): Z51.5 - Encounter for palliative care Status: Acute Plan: Palliative care consulted to assist with goals of care. Per family request, the family has repeatedly asked from the palliative care team to not contact them. Appreciate the palliative care team's assistance (10) History of CVA (cerebrovascular accident) Code(s): Z86.73 - Personal history of transient ischemic attack (TIA), and cerebral infarction without residual deficits Status: Chronic Plan: Patient with history of CVA x2. On admission, patient with altered mental status. Last known normal: Day prior to admission. -Please see plan as above (11) GERD (gastroesophageal reflux disease) Code(s): K21.9 - Gastro-esophageal reflux disease without esophagitis Status: Chronic Plan: Patient with history of GERD. Medications: * Pantoprazole IV. (12) Atrial fibrillation Code(s): I48.91 - Unspecified atrial fibrillation Status: Chronic Plan: Patient with history of A. fib. Patient with paroxysmal irregular irregular rhythm on exam. Cardiology consulted as above Medications: * Will continue home Eliquis once cleared from Neurology post CVA * Continue carvedilol (13) CHF (congestive heart failure) Code(s): I50.9 - Heart failure, unspecified Status: Chronic Plan: Patient with history of congestive heart failure. Caution IVF. Medications: * Continue home Lasix and Coreg. (14) Hypertension Code(s): I10 - Essential (primary) hypertension Status: Chronic Plan: Patient with history of hypertension. Per neurology, goal less than 120/80. Medications: * Continue home Coreg. * Clonidine as needed for BP >180/110 (15) Nutrition, metabolism, and development symptoms Code(s): R63.8 - Other symptoms and signs concerning food and fluid intake Status: Acute Plan: Fluid: * Free water flushes Q4H and with medications. Monitor IVF to avoid fluid overload. Electrolyte: * Monitor and replete as necessary. Nutrition: * Tube feeds only with dietary consult. Free water flushes Q4H and with medications (16) DVT prophylaxis Status: Acute Plan: Prophylaxis: * SCDs. <Ananda Ribera - 01/16/18 13:12> - Assessment and Plan Patient is an 87 year old female who presents to the [facility] ED via EMS following a witnessed seizure. Patient with history of seizure disorder. Patient given Versed en-route to hospital and Keppra bolus in ED. Patient's GCS 8 at time of admission encounter. Patient originally admitted for evaluation and management of seizure versus CVA. New CVA in right MCA region found by head CT on 01/03 (likely the original inciting event for admission) with further evolution on 01/08. <Ananda Ribera - 01/16/18 12:38> - Attending Attestation Patient seen, examined, and discussed with resident team this morning on rounds. I agree with assessment and management as documented and discussed with me. Pt remains critically ill, after a CODE BLUE overnight. <Suzy Fischer - 01/16/18 21:10> <Ananda Ribera - Last Filed: 01/16/18 13:12> (4) Sacral pressure ulcer Qualifiers: Pressure ulcer stage: stage 4 Qualified Code(s): L89.154 - Pressure ulcer of sacral region, stage 4 (6) Altered mental status, unspecified Qualifiers: Altered mental status type: unspecified Qualified Code(s): R41.82 - Altered mental status, unspecified <Suzy Fischer - Last Filed: 01/16/18 21:10> (4) Sacral pressure ulcer Qualifiers: Pressure ulcer stage: stage 4 Qualified Code(s): L89.154 - Pressure ulcer of sacral region, stage 4 (6) Altered mental status, unspecified Qualifiers: Altered mental status type: unspecified Qualified Code(s): R41.82 - Altered mental status, unspecified <Ananda Ribera - Last Filed: 01/16/18 13:12> (4) Sacral pressure ulcer Qualifiers: Pressure ulcer stage: stage 4 Qualified Code(s): L89.154 - Pressure ulcer of sacral region, stage 4 (6) Altered mental status, unspecified Qualifiers: Altered mental status type: unspecified Qualified Code(s): R41.82 - Altered mental status, unspecified <Suzy Fischer - Last Filed: 01/16/18 21:10> (4) Sacral pressure ulcer Qualifiers: Pressure ulcer stage: stage 4 Qualified Code(s): L89.154 - Pressure ulcer of sacral region, stage 4 (6) Altered mental status, unspecified Qualifiers: Altered mental status type: unspecified Qualified Code(s): R41.82 - Altered mental status, unspecified
[2018-01-16 14:08] LABS: Anion Gap 9 meq/L (5-15); Blood Urea Nitrogen 25 mg/dL (7-18); Calcium 8.7 mg/dL (8.5-10.1); Carbon Dioxide 32.1 meq/L (21.0-32.0); Chloride 105 meq/L (98-107); Glomerular Filtration Rate Greater Than 89 mL/min (>89); Glucose,Random 187 mg/dL (74-106); Potassium 5.7 meq/L (3.5-5.1); Sodium 146 meq/L (136-145)
[2018-01-16] MEDS: DEXTROSE 5% IV.CONT PRN ×4 (18:05→18:09)
[2018-01-16] MEDS: WATER IV.CONT PRN ×4 (18:05→18:09)
[2018-01-16] MEDS: EPINEPHRINE IV.CONT PRN ×4 (18:05→18:09)
[2018-01-17 04:17] LABS: Hematocrit 21.5 % (35.0-46.0); Mean Corpuscular HGB Conc 31.8 % (32.0-36.0); Mean Corpuscular Hemoglobin 29.9 pg (27.0-34.0); Mean Corpuscular Volume 94.2 fL (80.0-100.0); Mean Platelet Volume 7.9 fL (7.0-11.0); Platelet Count 380 th/mm3 (150-450); Red Blood Count 2.28 mil/mm3 (4.00-5.30); Red Cell Distribution Width 16.4 % (11.6-17.2); White Blood Count 11.6 th/mm3 (4.0-11.0)
[2018-01-17 04:22] LABS: Hemoglobin 6.8 gm/dL (11.6-15.3)
[2018-01-17 04:34] LABS: Alanine Aminotransferase 21 U/L (10-53); Albumin 1.5 g/dL (3.4-5.0); Alkaline Phosphatase 79 U/L (45-117); Anion Gap 6 meq/L (5-15); Aspartate Aminotransferase 56 U/L (15-37); Blood Urea Nitrogen 26 mg/dL (7-18); Calcium 7.9 mg/dL (8.5-10.1); Carbon Dioxide 32.8 meq/L (21.0-32.0); Chloride 103 meq/L (98-107); Glomerular Filtration Rate 76 mL/min (>89); Glucose,Random 340 mg/dL (74-106); Potassium 5.2 meq/L (3.5-5.1); Sodium 142 meq/L (136-145); Total Protein 5.3 g/dL (6.4-8.2)
--- NOTE | 2018-01-17 04:46 | XR ---
EXAM DATE: 01/17/2018 4:27 AM EDT AGE/SEX: 87 years / Female INDICATIONS: Hypertension. Congestive heart failure. CVA. Left sided weakness. Dementia. Seizures. A rthritis. . CLINICAL DATA: This is the patient's subsequent encounter. Patient reports that signs and symptoms h ave been present for 2 weeks and indicates a pain score of Nonresponsive. MEDICAL/SURGICAL HISTORY: . Hypertension. Congestive heart failure. CVA. Left sided weakness. D ementia. Seizures. Arthritis. . Hysterectomy. Cervical fusion. Right hip replacement. COMPARISON: [facility] – [place]ST 1V SINGLE AP, 01/16/2018. . FINDINGS: Endotracheal tube in good position. Right central line in superior vena cava. Pacer leads overlie rig ht ventricle and coronary sinus. Basilar airspace consolidation, left greater than right with small e ffusions. No pneumothorax. CONCLUSION: Cardiomegaly with basilar airspace consolidation and small effusions similar to January 16. Electronically signed by: Thierry Espinoza MD 01/17/2018 4:45 AM EDT
[2018-01-17 04:57] LABS: Lymphocytes 19 % (9-44); Metamyelocytes 2 % (0-1); Monocytes 14 % (0-8)
[2018-01-17 04:58] LABS: Platelet Estimate Normal (Normal)
[2018-01-17 05:00] LABS: Helmet Cells Occ; Ovalocytes 1+; Toxic Vacuolation Present
[2018-01-17 05:02] LABS: Platelet Morphology Normal (Normal)
[2018-01-17] MEDS: WATER IV.CONT PRN ×2 (07:06)
[2018-01-17] MEDS: DEXTROSE 5% IV.CONT PRN ×2 (07:06)
[2018-01-17] MEDS: EPINEPHRINE IV.CONT PRN ×2 (07:06)
[2018-01-17] MEDS: Divalproex 125 MG Sprinkles Capsule G-TUBE SCH ×2 (09:25→21:53)
[2018-01-17] MEDS: Phenytoin Susp 100 MG/4 ML UDC G-TUBE SCH ×3 (09:25→21:52)
[2018-01-17] MEDS: Potassium Chloride 10 MEQ ER Capsule PO SCH (09:26)
[2018-01-17] MEDS: Pantoprazole Inj 40 MG Vial IV.PUSH SCH (11:05)
--- NOTE | 2018-01-17 12:19 | P.PNFP ---
Subjective Interval history: Patient seen and examined this morning. Patient currently intubated on ventilator. Did not open her eyes to our voice or to sternal rub. Not on sedation. 1624 Dr. Quiros and I called Kaci Koenig, healthcare surrogate. He explained Ms. Baxter's current condition and prognosis. Ms. Koenig is currently driving down from [place]. <Kaia Davis Presley - 01/17/18 17:13> Results - Labs Result diagrams: 01/17/18 04:09 01/17/18 04:09 <Suzy Fischer - 01/17/18 20:12> Abnormal lab results 01/17/18 01/17/18 01/17/18 Range/Units 04:09 04:09 05:45 WBC 11.6 H D (4.0-11.0) th/mm3 RBC 2.28 L (4.00-5.30) mil/mm3 Hgb 6.8 L* (11.6-15.3) gm/dL Hct 21.5 L (35.0-46.0) % MCHC 31.8 L (32.0-36.0) % Band Neuts % (Manual) 14 H (0-6) % Monocytes % (Manual) 14 H (0-8) % Metamyelocytes % (Man) 2 H (0-1) % Toxic Vacuolation Present H (None) Ovalocytes 1+ H (None) Helmet Cells Occ H (None) Keratocytes Occ H (None) Potassium 5.2 H (3.5-5.1) meq/L Carbon Dioxide 32.8 H (21.0-32.0) meq/L BUN 26 H (7-18) mg/dL Estimated GFR 76 L (>89) mL/min Random Glucose 340 H D (74-106) mg/dL Calcium 7.9 L D (8.5-10.1) mg/dL AST 56 H (15-37) U/L Total Protein 5.3 L (6.4-8.2) g/dL Albumin 1.5 L (3.4-5.0) g/dL MTS Gel Crossmatch See Detail Short CBC 01/17/18 Range/Units 04:09 WBC 11.6 H D (4.0-11.0) th/mm3 Hgb 6.8 L* (11.6-15.3) gm/dL Hct 21.5 L (35.0-46.0) % Plt Count 380 (150-450) th/mm3 BMP 01/17/18 04:09 Sodium 142 Potassium 5.2 H Chloride 103 Carbon Dioxide 32.8 H BUN 26 H Creatinine 0.86 Calcium 7.9 L D Liver Function 01/17/18 Range/Units 04:09 Total Bilirubin 0.5 (0.2-1.0) mg/dL AST 56 H (15-37) U/L ALT 21 (10-53) U/L Alkaline Phosphatase 79 (45-117) U/L Albumin 1.5 L (3.4-5.0) g/dL <Suzy Fischer - 01/17/18 20:12> Abnormal lab results 01/16/18 01/17/18 01/17/18 Range/Units 12:20 04:09 04:09 WBC 11.6 H D (4.0-11.0) th/mm3 RBC 2.28 L (4.00-5.30) mil/mm3 Hgb 6.8 L* (11.6-15.3) gm/dL Hct 21.5 L (35.0-46.0) % MCHC 31.8 L (32.0-36.0) % Band Neuts % (Manual) 14 H (0-6) % Monocytes % (Manual) 14 H (0-8) % Metamyelocytes % (Man) 2 H (0-1) % Toxic Vacuolation Present H (None) Ovalocytes 1+ H (None) Helmet Cells Occ H (None) Keratocytes Occ H (None) Sodium 146 H (136-145) meq/L Potassium 5.7 H 5.2 H (3.5-5.1) meq/L Carbon Dioxide 32.1 H 32.8 H (21.0-32.0) meq/L BUN 25 H 26 H (7-18) mg/dL Estimated GFR 76 L (>89) mL/min Random Glucose 187 H 340 H D (74-106) mg/dL Calcium 7.9 L D (8.5-10.1) mg/dL AST 56 H (15-37) U/L Total Protein 5.3 L (6.4-8.2) g/dL Albumin 1.5 L (3.4-5.0) g/dL MTS Gel Crossmatch 01/17/18 Range/Units 05:45 WBC (4.0-11.0) th/mm3 RBC (4.00-5.30) mil/mm3 Hgb (11.6-15.3) gm/dL Hct (35.0-46.0) % MCHC (32.0-36.0) % Band Neuts % (Manual) (0-6) % Monocytes % (Manual) (0-8) % Metamyelocytes % (Man) (0-1) % Toxic Vacuolation (None) Ovalocytes (None) Helmet Cells (None) Keratocytes (None) Sodium (136-145) meq/L Potassium (3.5-5.1) meq/L Carbon Dioxide (21.0-32.0) meq/L BUN (7-18) mg/dL Estimated GFR (>89) mL/min Random Glucose (74-106) mg/dL Calcium (8.5-10.1) mg/dL AST (15-37) U/L Total Protein (6.4-8.2) g/dL Albumin (3.4-5.0) g/dL MTS Gel Crossmatch See Detail Short CBC 01/17/18 Range/Units 04:09 WBC 11.6 H D (4.0-11.0) th/mm3 Hgb 6.8 L* (11.6-15.3) gm/dL Hct 21.5 L (35.0-46.0) % Plt Count 380 (150-450) th/mm3 BMP 01/16/18 01/17/18 12:20 04:09 Sodium 146 H 142 Potassium 5.7 H 5.2 H Chloride 105 103 Carbon Dioxide 32.1 H 32.8 H BUN 25 H 26 H Creatinine 0.60 0.86 Calcium 8.7 7.9 L D Liver Function 01/17/18 Range/Units 04:09 Total Bilirubin 0.5 (0.2-1.0) mg/dL AST 56 H (15-37) U/L ALT 21 (10-53) U/L Alkaline Phosphatase 79 (45-117) U/L Albumin 1.5 L (3.4-5.0) g/dL <Kaia Davis - 01/17/18 12:19> - Imaging Impressions Chest X-Ray 01/17/18 04:00 CONCLUSION: Cardiomegaly with basilar airspace consolidation and small effusions similar to January 16. <Suzy Fischer - 01/17/18 20:12> Impressions Chest X-Ray 01/17/18 04:00 CONCLUSION: Cardiomegaly with basilar airspace consolidation and small effusions similar to January 16. <Kaia Davis - 01/17/18 12:19> Physical Exam Vital signs: Vital Signs 01/16/18 21:16 01/17/18 00:00 01/17/18 04:00 Temperature 100.0 F H 100.4 F H Pulse Rate 64 64 Respiratory Rate 18 18 Blood Pressure 121/39 L 140/50 L Pulse Oximetry 100 100 100 01/17/18 04:36 01/17/18 08:00 01/17/18 08:26 Temperature 99.9 F H 100 F H Pulse Rate 63 62 Respiratory Rate 16 16 Blood Pressure 143/55 H 149/54 H Pulse Oximetry 100 100 01/17/18 08:45 01/17/18 08:53 01/17/18 09:00 Temperature 99.9 F H Pulse Rate 63 60 Respiratory Rate 16 16 Blood Pressure 140/51 L Pulse Oximetry 100 01/17/18 09:37 01/17/18 09:45 01/17/18 11:49 Temperature 99.9 F H 99.7 F H 99.7 F H Pulse Rate 60 61 63 Respiratory Rate 17 16 Blood Pressure 134/53 L Pulse Oximetry 100 01/17/18 11:52 01/17/18 15:30 01/17/18 16:39 Temperature 98.6 F Pulse Rate 60 Respiratory Rate 16 16 Blood Pressure 92/45 L Pulse Oximetry 100 100 99 Intake & Output 01/17/18 01/17/18 01/18/18 06:59 18:59 06:59 Intake Total 1346 / 1346 827 / 827 Output Total 675 / 675 200 / 200 Balance 671 / 671 627 / 627 Weight 69.2 kg 76.5 kg Intake: IV 500 / 500 250 / 250 EPINEPHrine (1:1000) Inj 4 MG 500 / 500 In D5W Inj 496 ML @ 3 MCG/MIN 22.5 mls/hr IV.CONT TITRATE PRN Rx#:[id number] Buminate 5% Inj 250 ML @ 250 250 / 250 mls/hr IV.SIG PRN CARMEN Rx#: [id number] Oral 0 / 0 0 / 0 Tube Feeding 349 / 349 377 / 377 Tube Irrigant 150 / 150 Water Bolus Amount 0 / 0 200 / 200 Other 347 / 347 Intake (Blood Product) Amt 0 / 0 Rbc As-3 Leukoreduced Unit 0 / 0 [id number] Rbc As-3 Leukoreduced Unit 0 / 0 [id number] Output: Urine 675 / 675 Stool 0 / 0 Urine Amount (Catheter) 200 / 200 Indwelling Temp Sensing 200 / 200 Catheter Other: # Voids 1 # Incontinent Voids 3 Date of Last Bowel Movement 01/16/18 01/16/18 # Bowel Movements 1 0 # Incontinent Bowel Movements 2 <VeAlexa maye - 01/17/18 20:12> Vital Signs 01/16/18 12:27 01/16/18 12:39 01/16/18 16:00 Temperature 99.3 F 99.9 F H Pulse Rate 59 L 62 Respiratory Rate 16 18 Blood Pressure 99/35 L 108/35 L Pulse Oximetry 100 100 100 01/16/18 16:38 01/16/18 20:00 01/16/18 21:16 Temperature 100.0 F H Pulse Rate 64 Respiratory Rate 18 16 18 Blood Pressure 116/40 L Pulse Oximetry 100 100 100 01/17/18 00:00 01/17/18 04:00 01/17/18 04:36 Temperature 100.0 F H 100.4 F H Pulse Rate 64 64 Respiratory Rate 18 16 Blood Pressure 121/39 L 140/50 L Pulse Oximetry 100 100 01/17/18 08:00 01/17/18 08:26 01/17/18 08:45 Temperature 99.9 F H 100 F H 99.9 F H Pulse Rate 63 62 63 Respiratory Rate 16 16 Blood Pressure 143/55 H 149/54 H 140/51 L Pulse Oximetry 100 100 01/17/18 08:53 01/17/18 09:00 01/17/18 09:37 Temperature 99.9 F H Pulse Rate 60 60 Respiratory Rate 16 17 Blood Pressure Pulse Oximetry 100 01/17/18 09:45 01/17/18 11:49 01/17/18 11:52 Temperature 99.7 F H 99.7 F H Pulse Rate 61 63 Respiratory Rate 16 16 Blood Pressure 134/53 L Pulse Oximetry 100 100 Intake & Output 01/16/18 01/17/18 01/17/18 18:59 06:59 18:59 Intake Total 1500 / 1500 1346 / 1346 0 / 0 Output Total 100 / 100 675 / 675 Balance 1400 / 1400 671 / 671 0 / 0 Weight 69.2 kg 76.5 kg Intake: IV 1500 / 1500 500 / 500 EPINEPHrine (1:1000) Inj 2 MG 1000 / 1000 In D5W Inj 248 ML @ 3 MCG/MIN 22.5 mls/hr IV.CONT TITRATE PRN Rx#:[id number] EPINEPHrine (1:1000) Inj 4 MG 500 / 500 500 / 500 In D5W Inj 496 ML @ 3 MCG/MIN 22.5 mls/hr IV.CONT TITRATE PRN Rx#:[id number] Oral 0 / 0 Tube Feeding 349 / 349 Tube Irrigant 150 / 150 Water Bolus Amount 0 / 0 Other 347 / 347 Intake (Blood Product) Amt 0 / 0 Rbc As-3 Leukoreduced Unit 0 / 0 [id number] Rbc As-3 Leukoreduced Unit 0 / 0 [id number] Output: Urine 675 / 675 Stool 0 / 0 Urine Amount (Catheter) 100 / 100 Indwelling Temp Sensing 100 / 100 Catheter Other: # Voids 1 # Incontinent Voids 3 Date of Last Bowel Movement 01/16/18 01/16/18 01/16/18 # Bowel Movements 1 # Incontinent Bowel Movements 2 <Kaia Davis G - 01/17/18 12:19> Narrative: GENERAL: frail elderly female laying in bed intubated on ventilator, in no acute distress SKIN: Warm and dry. HEAD: Atraumatic. Normocephalic. EYES: No scleral icterus. No injection or drainage. Pupils 1mm bilaterally and nonreactive. ENT: No nasal bleeding or discharge. Frothy sputum at left corner of mouth. NECK: Trachea midline. No JVD. CARDIOVASCULAR: Regular rate and rhythm. RESPIRATORY: No accessory muscle use. Coarse breath sounds diffusely auscultated anteriorly GASTROINTESTINAL: Abdomen soft, non-tender, nondistended. Hepatic and splenic margins not palpable. PEG tube in place without signs of infection, no erythema , no discharge MUSCULOSKELETAL: Extremities without clubbing or cyanosis. No obvious deformities. Anasarca NEUROLOGICAL: Unable to be aroused. Unable to performed full neurological assessment due to patient's mental status <Kaia Davis - 01/17/18 15:34> - Urinary Catheter Management Indwelling Temp Sensing Catheter Cath placed during this visit: no <Suzy Fischer - 01/17/18 20:12> yes <Kaia Davis - 01/17/18 17:13> Reason for continuing: Severe pressure ulcer/wound <Kaia Davis - 01/17/18 12 :19> Insertion date: 01/16/18 <Kaia Davis - 01/17/18 12:19> Insertion time: 04:00 <Kaia Davis - 01/17/18 12:19> Assessment and Plan - Assessment (1) Cardiopulmonary arrest with successful resuscitation Code(s): I46.9 - Cardiac arrest, cause unspecified Status: Acute (2) UTI (urinary tract infection) Code(s): N39.0 - Urinary tract infection, site not specified Status: Acute (3) Clostridium difficile diarrhea Code(s): A04.72 - Enterocolitis due to Clostridium difficile, not specified as recurrent Status: Acute (4) Sacral pressure ulcer Code(s): L89.159 - Pressure ulcer of sacral region, unspecified stage Status: Acute (5) Acute CVA (cerebrovascular accident) Code(s): I63.9 - Cerebral infarction, unspecified Status: Acute (6) Altered mental status, unspecified Code(s): R41.82 - Altered mental status, unspecified Status: Acute (7) Seizure Code(s): R56.9 - Unspecified convulsions Status: Acute (8) Poor nutrition Code(s): E63.9 - Nutritional deficiency, unspecified Status: Acute (9) Palliative care patient Code(s): Z51.5 - Encounter for palliative care Status: Acute (10) History of CVA (cerebrovascular accident) Code(s): Z86.73 - Personal history of transient ischemic attack (TIA), and cerebral infarction without residual deficits Status: Chronic (11) GERD (gastroesophageal reflux disease) Code(s): K21.9 - Gastro-esophageal reflux disease without esophagitis Status: Chronic (12) Atrial fibrillation Code(s): I48.91 - Unspecified atrial fibrillation Status: Chronic (13) CHF (congestive heart failure) Code(s): I50.9 - Heart failure, unspecified Status: Chronic (14) Hypertension Code(s): I10 - Essential (primary) hypertension Status: Chronic (15) Nutrition, metabolism, and development symptoms Code(s): R63.8 - Other symptoms and signs concerning food and fluid intake Status: Acute (16) DVT prophylaxis Status: Acute <Suzy Fischer - 01/17/18 20:12> (1) Cardiopulmonary arrest with successful resuscitation Code(s): I46.9 - Cardiac arrest, cause unspecified Status: Acute Plan: Patient with cardiopulmonary arrest on the morning of 01/16/18 likely due to hypercapnic respiratory acidosis with severe CVA. Patient with extremely poor prognosis due to multiple comorbidities and will likely need tracheotomy for continued airway protection. Family contacted and requests aggressive care goals at this time. -Critical care consulted, appreciate recommendations -Patient currently intubated for respiratory support, will likely need tracheotomy for continued airway management -Blood pressure currently maintained by epinephrine drip, likely to be d/c'd due to compromise of peripheral perfusion -PEG tube feeds for management of nutrition (2) UTI (urinary tract infection) Code(s): N39.0 - Urinary tract infection, site not specified Status: Acute Plan: Pt spiked a low grade fever of 100.8F on 01/07/18. She has been afebrile since. UA shows moderate blood, moderate leukocyte esterase, and many bacteria. Patient has completed her course of Rocephin. Urine culture showed Fern albicans. Patient started on Fluconazole after discussion with Dr. Carolina of Neurology (due to fluconazole interacting with Dilantin and increasing its levels). -Rocephin 01/07-01/11 -Patient started on Fluconazole 01/12 (to continue for a total of 14 days) -Dilantin level is high at 24.5, neurology to manage (3) Clostridium difficile diarrhea Code(s): A04.72 - Enterocolitis due to Clostridium difficile, not specified as recurrent Status: Acute Plan: Nursing staff reported up to 8 liquid bowel movements on 01/06/18. Patient was found to be positive for C.diff on 01/07. Rectal tube placed, laxative/stool softeners held, Vancomycin per G-tube started and Lactobacillus given 3 times daily. -Rectal tube discontinued as liquid stool has resolved -Vancomycin per G-tube 125 mg 4 times daily for a total of 10 days (01/08- ) -Lactobacillus given to assist with gut rod (4) Sacral pressure ulcer Code(s): L89.159 - Pressure ulcer of sacral region, unspecified stage Status: Acute Plan: Patient found to have stage IV pressure ulcer of the sacrum. Patient placed in appropriate bedding for patient due to sacral wound following wound care recommendations. -Nursing to rotate patient per protocol. -Wound care and wound physician consulted, appreciate recommendations (5) Acute CVA (cerebrovascular accident) Code(s): I63.9 - Cerebral infarction, unspecified Status: Acute Plan: Patient with new ischemic infarct, while on anticoagulation seen on CT head 01/03. Possibly this finding on CT on 01/03 due to new infarct or associated with extension of possible infarct on admission date which is now visible on CT scan. Will not be able to determine as patient was unable to have MRI on admission. Regardless, this is a large infarct and most recent CT from 01/13 shows further evolution with decreased edema (discussed with Dr. Carolina on 01/14) . The risk for this transitioning to hemorrhagic is high. Continue to hold anticoagulation. Neurology is following in this case. Her overall prognosis for meaningful recovery remains very poor. Patients family continue to desire aggressive care and management and are hopeful for a recovery to her baseline prior to admission. -F/u Head CT wo contrast in 2 weeks as an outpatient, afterwards will compare CT scans to determine whether to restart Eliquis -Continue supportive care with PT/OT (6) Altered mental status, unspecified Code(s): R41.82 - Altered mental status, unspecified Status: Acute Plan: Patient's mentation has not returned to baseline due to new evolving right MCA infarct. This is likely her new baseline. -Neurology following Started on Provigil 200mg PEG daily, Dilantin 130 mg liquid PEG BID, Dilantin 100mg liquid PEG @1300 and Divalproex Sprinkles 500mg PEG BID Eliquis stopped on 01/05 due to concern for hemorrhagic conversion of currently evolving ischemic CVA (7) Seizure Code(s): R56.9 - Unspecified convulsions Status: Acute Plan: Patient with history of seizure disorder. Witnessed seizure at longterm in a.m. day of admission. No seizures reported during hospitalization. * See Plan above. (8) Poor nutrition Code(s): E63.9 - Nutritional deficiency, unspecified Status: Acute Plan: Patient with poor nutritional status. PEG tube placed and tube feeds started . -Jevity 1.5 at goal rate of 55 ml/hr over 20 hours with 100ml free water flushes Q4H as patient will receive additional free water flushes with medications. (9) Palliative care patient Code(s): Z51.5 - Encounter for palliative care Status: Acute Plan: Palliative care consulted to assist with goals of care. Per family request, the family has repeatedly asked from the palliative care team to not contact them. Appreciate the palliative care team's assistance (10) History of CVA (cerebrovascular accident) Code(s): Z86.73 - Personal history of transient ischemic attack (TIA), and cerebral infarction without residual deficits Status: Chronic Plan: Patient with history of CVA x2. On admission, patient with altered mental status. Last known normal: Day prior to admission. -Please see plan as above (11) GERD (gastroesophageal reflux disease) Code(s): K21.9 - Gastro-esophageal reflux disease without esophagitis Status: Chronic Plan: Patient with history of GERD. Medications: * Pantoprazole IV. (12) Atrial fibrillation Code(s): I48.91 - Unspecified atrial fibrillation Status: Chronic Plan: Patient with history of A. fib. Patient with paroxysmal irregular irregular rhythm on exam. Cardiology consulted as above Medications: * Will continue home Eliquis once cleared from Neurology post CVA * Continue carvedilol (13) CHF (congestive heart failure) Code(s): I50.9 - Heart failure, unspecified Status: Chronic Plan: Patient with history of congestive heart failure. Caution IVF. Medications: * Continue home Lasix and Coreg. (14) Hypertension Code(s): I10 - Essential (primary) hypertension Status: Chronic Plan: Patient with history of hypertension. Per neurology, goal less than 120/80. Medications: * Continue home Coreg. * Clonidine as needed for BP >180/110 (15) Nutrition, metabolism, and development symptoms Code(s): R63.8 - Other symptoms and signs concerning food and fluid intake Status: Acute Plan: Fluid: * Free water flushes Q4H and with medications. Monitor IVF to avoid fluid overload. Electrolyte: * Monitor and replete as necessary. Nutrition: * Tube feeds only with dietary consult. Free water flushes Q4H and with medications (16) DVT prophylaxis Status: Acute Plan: Prophylaxis: * SCDs. <Kaia Davis - 01/17/18 17:11> - Assessment and Plan Patient is an 87 year old female who presents to the [place] ED via EMS following a witnessed seizure. Patient with history of seizure disorder. Patient given Versed en-route to hospital and Keppra bolus in ED. Patient's GCS 8 at time of admission encounter. Patient originally admitted for evaluation and management of seizure versus CVA. New CVA in right MCA region found by head CT on 01/03 (likely the original inciting event for admission) with further evolution on 01/08. <Kaia Davis - 01/17/18 15:34> Discharge Planning: Pending placement CM consulted to assist <Kaia Davis - 01/17/18 15:34> - Attending Attestation Patient seen and examined this morning, discussed with resident team. I agree with assessment and management as documented and discussed with me. Pt remains intubated, unresponsive (on NO sedation). She remains critically ill. Appreciate multiple specialists involved in her care. <Suzy Fischer - 01/17/18 20:12> <Kaia Davis - Last Filed: 01/17/18 17:11> (4) Sacral pressure ulcer Qualifiers: Pressure ulcer stage: stage 4 Qualified Code(s): L89.154 - Pressure ulcer of sacral region, stage 4 (6) Altered mental status, unspecified Qualifiers: Altered mental status type: unspecified Qualified Code(s): R41.82 - Altered mental status, unspecified <Vey,Suzy - Last Filed: 01/17/18 20:12> (4) Sacral pressure ulcer Qualifiers: Pressure ulcer stage: stage 4 Qualified Code(s): L89.154 - Pressure ulcer of sacral region, stage 4 (6) Altered mental status, unspecified Qualifiers: Altered mental status type: unspecified Qualified Code(s): R41.82 - Altered mental status, unspecified <Kaia Davis G - Last Filed: 01/17/18 17:11> (4) Sacral pressure ulcer Qualifiers: Pressure ulcer stage: stage 4 Qualified Code(s): L89.154 - Pressure ulcer of sacral region, stage 4 (6) Altered mental status, unspecified Qualifiers: Altered mental status type: unspecified Qualified Code(s): R41.82 - Altered mental status, unspecified <Vey,Suzy - Last Filed: 01/17/18 20:12> (4) Sacral pressure ulcer Qualifiers: Pressure ulcer stage: stage 4 Qualified Code(s): L89.154 - Pressure ulcer of sacral region, stage 4 (6) Altered mental status, unspecified Qualifiers: Altered mental status type: unspecified Qualified Code(s): R41.82 - Altered mental status, unspecified
--- NOTE | 2018-01-17 12:49 | P.PNCC ---
Subjective Subjective Remarks/Hospital Course: 87 year old female admitted initially for evaluation of a witnessed seizure. The patient is prison resident with multiple medical issues, including history of seizures on Keppra. Per chart review her baseline is alert, confused , and often combative at a prison. She is verbal. She is able to feed herself; she consumes a pureed, nectar-thick diet. She spends most of her time in chair, with limited mobility. She was admitted to [place] in December 18 for the above, while in the hospital she developed right MCA stroke with significant damage of almost entire right hemisphere. The patient's daughter is a ICU nurse at outside of [facility] facility , who is requesting to continue aggressive management. Today early in the morning the patient developed respiratory arrest flowed by a cardiac arrest requiring multiple cycles of CPR and epinephrine injections. The initial rhythm was PEA versus asystolic. After approximately 15 minutes of CPR the patient regained spontaneous circulation. She was intubated just prior to arrest, and later central line and A-line was used due to hemodynamic instability. The patient's daughter was called during the CPR and again requested full code and aggressive management. 01/16 1000 hrs: Gas exchange now acceptable and pH problems have been corrected with ventilator manipulations. The etiology of the rest appears to have been a hypercapnic respiratory acidosis superimposed on a large dominant hemisphere acute stroke. Chest x-ray reviewed tubes and lines in good position. Cardiac rhythm appears to be atrial paced. The QRS is wide and I suspect within there somewhere is a sequential ventricular spike although I do not see it on the monitor. Potassium was elevated at 5.8 we will follow that closely. At present she is requiring 8 mcg/min of epinephrine and urine output has been about 40 mL's. Patient remains critically ill. 01/17: no improvements. severely encephalopathic. remains on epinephrine, although digits are now dusky and our vasopressors may be causing more harm than any improvements at this point. will be forced to use ivf for perfusion instead of epinephrine. I was unable to reach family today, though the family medicine service updated the family and they press on for aggressive measures. unlikely to have any meaningful recovery given large stroke superimposed on baseline poor functionality. Objective Vital Signs / I&O: Vital Signs 01/16/18 16:00 01/16/18 16:38 01/16/18 20:00 Temperature 37.7 C H 37.8 C H Pulse Rate 62 64 Respiratory Rate 18 16 Blood Pressure 108/35 L 116/40 L Pulse Oximetry 100 100 100 01/16/18 21:16 01/17/18 00:00 01/17/18 04:00 Temperature 37.8 C H 38.0 C H Pulse Rate 64 64 Respiratory Rate 18 18 Blood Pressure 121/39 L 140/50 L Pulse Oximetry 100 100 100 01/17/18 04:36 01/17/18 08:00 01/17/18 08:26 Temperature 37.7 C H 37.7 C H Pulse Rate 63 62 Respiratory Rate 16 16 Blood Pressure 143/55 H 149/54 H Pulse Oximetry 100 100 01/17/18 08:45 01/17/18 08:53 01/17/18 09:00 Temperature 37.7 C H Pulse Rate 63 60 Respiratory Rate 16 16 Blood Pressure 140/51 L Pulse Oximetry 100 01/17/18 09:37 01/17/18 09:45 01/17/18 11:49 Temperature 37.7 C H 37.6 C H 37.6 C H Pulse Rate 60 61 63 Respiratory Rate 17 16 Blood Pressure 134/53 L Pulse Oximetry 100 01/17/18 11:52 Temperature Pulse Rate Respiratory Rate 16 Blood Pressure Pulse Oximetry 100 Intake & Output 01/16/18 01/17/18 01/17/18 18:59 06:59 18:59 Intake Total 1500 / 1500 1346 / 1346 0 / 0 Output Total 100 / 100 675 / 675 Balance 1400 / 1400 671 / 671 0 / 0 Weight 69.2 kg 76.5 kg Intake: IV 1500 / 1500 500 / 500 EPINEPHrine (1:1000) Inj 2 MG 1000 / 1000 In D5W Inj 248 ML @ 3 MCG/MIN 22.5 mls/hr IV.CONT TITRATE PRN Rx#:[id number] EPINEPHrine (1:1000) Inj 4 MG 500 / 500 500 / 500 In D5W Inj 496 ML @ 3 MCG/MIN 22.5 mls/hr IV.CONT TITRATE PRN Rx#:[id number] Oral 0 / 0 Tube Feeding 349 / 349 Tube Irrigant 150 / 150 Water Bolus Amount 0 / 0 Other 347 / 347 Intake (Blood Product) Amt 0 / 0 Rbc As-3 Leukoreduced Unit 0 / 0 [id number] Rbc As-3 Leukoreduced Unit 0 / 0 [id number] Output: Urine 675 / 675 Stool 0 / 0 Urine Amount (Catheter) 100 / 100 Indwelling Temp Sensing 100 / 100 Catheter Other: # Voids 1 # Incontinent Voids 3 Date of Last Bowel Movement 01/16/18 01/16/18 01/16/18 # Bowel Movements 1 # Incontinent Bowel Movements 2 Result Diagrams: 01/17/18 04:09 01/17/18 04:09 Objective Remarks: gen: frail elderly female, lying in bed, comatose heent: pupils are 2mm, equal, reactive. mucous membranes moist. neck: no jvd. trachea midline. chest: full mechanical support. intubated. fio2 45%. peep 5. equal chest rise. cv: normal rate, regular rhythm. epinephrine at 6 mcg/min. abd: soft, nontender, nondistended. no guarding. extr: cool, poorly perfused. digits are beginning to mottle. 1+ edema. neuro: RASS -4. ?withdraw vs. flexion in the right, flaccid in the left. + cough. +gag. Assessment and Plan - Assessment and Plan Plan: Assessment: 87yF with acute CVA and now s/p cardiac arrest overlying significant comorbid medical conditions. very poor prognosis. unlikely to have any long-term functional recovery. family continues to press for aggressive treatment. critically ill and remains in shock. Acute hypoxic and Hypercarbic Respiratory failure -Hypercapnic respiratory failure -Poor baseline mental status -Large right CVA -No weaning until neurologically improved -Most likely will need to tracheostomy for an airway protection -Extremely poor prognosis however family request to continue mechanical ventilation and aggressive support Acute CVA -new ischemic infarct while on anticoagulation -Extremely high risk for hemorrhagic conversion due to size of the stroke -No anticoagulation recommended -Further management per neurology Cardiogenic shock s/p PEA arrest - peripheral perfusion compromised. epinephrine causing too much harm to peripheral perfusion. will d/c this in favor of iv fluids. Seizure -Dilantin - management per neurology. UTI -Rocephin 01/07-01/11 -Patient started on Fluconazole 01/12 (to continue for a total of 14 days) Clostridium difficile diarrhea -Vancomycin per G-tube 125 mg 4 times daily -Lactobacillus given to assist with gut rod DVT GI prophylaxis -Teds SCDs -Subcu heparin -Pepcid Overall impression: This woman is critically ill following a cardiac arrest from respiratory acidosis. Her neurologic status is unstable as well and her overall prognosis is guarded. Critical care 36 minutes, exclusive of separately billable procedures.
[2018-01-17] MEDS: Albumin Human 5% Inj 250 ML IV.SIG SCH (14:07)
--- NOTE | 2018-01-17 15:40 | P.DIET ---
Nutritional Evaluation Type of nutrition evaluation: follow-up Nutrition consult regarding: Tube Feeding Nutrition screening: [facility] [place] (01/07 "pt with severe diarrhea") Screening comments: Pt transferred to [facility] due to Halicat. Subjective Subjective Comments: Call received from Dr Davis regarding Dilantin dosing. Objective - Diagnosis Seizures, AMS. PMH see H&P - Objective % IBW: 88 (IBW = 135#) Body Weight Used for Calculations: Actual Energy Needs - Lower Range (kCal/kg): 33 Energy Needs - Upper Range (kCal/kg): 38 Lower Limit kCal/kg (kCals): 1,584 Upper Limit kCal/kg (kCals): 1,824 Lower Limit Protein Factor (Grams per Kg): 1.2 Upper Limit Protein Factor (Grams per Kg): 1.5 Lower Protein Needs (Protein): 58 Upper Protein Needs (Protein): 72 Dietitian Reviewed in Medical Record: Current diet, Curent medications, Intake & Output, Labs, Tube feeding Diet Order: NPO Wound Care Note: see WOCN dated 01/07. Indicates sacral stage 4 Pressure Injury Objective Comments: Labs: K 5.2, BUN 26, glu 340 Dilantin tid Feeding - Current Tube Feeding Tube Feeding Product: Jevity 1.5 (TF on hold) Medications That Affect Tube Feeding Run Time: Dilantin (tid) Total Time Off: 6 hours Assessment Assessment: Pt remains at high nutrition risk. Pt has been tolerating Jevity 1.5 @ 40 mls/ hr priot to transfer to [facility]. Pt. continues to receive Dilantin tid requiring TFing to be turned off for 6 hours total. Recommend Jevity 1.5 @ goal rate of 60 mls/hr over 18 hours. Jevity 1.5 has fiber, which has a bulking effect on stool, which would make it the best choice for diarrhea. Labs, wts and clinical course reviewed. Significant wt change noted: 55 kg on (01/12), 67.3 kg on (01/13) , 69.2 kg (01/17) and 76.5 kg on (01/17). Will monitor for trends. Elevated glucose noted, may want to consider Glucerna 1.5 formula for better glucose control. Recommendations: Recommend Jevity 1.5 @ goal rate of 60 mls/hr over 18 hours d/t Dilantin Consider formula change to Glucerna 1.5 for better glucose control Dietitian to Monitor: Lab values, Glucose level, Tube feeding tolerance, Weight change, Medical course
[2018-01-17] MEDS: Multivitamin/Minerals Therapeutic Tablet PO SCH (20:11)
[2018-01-18 08:41] LABS: Hematocrit 29.5 % (35.0-46.0); Hemoglobin 10.2 gm/dL (11.6-15.3); Mean Corpuscular HGB Conc 34.5 % (32.0-36.0); Mean Corpuscular Hemoglobin 30.6 pg (27.0-34.0); Mean Corpuscular Volume 88.6 fL (80.0-100.0); Mean Platelet Volume 8.2 fL (7.0-11.0); Platelet Count 293 th/mm3 (150-450); Red Blood Count 3.33 mil/mm3 (4.00-5.30); Red Cell Distribution Width 16.6 % (11.6-17.2); White Blood Count 7.8 th/mm3 (4.0-11.0)
[2018-01-18 09:18] LABS: Anion Gap 11 meq/L (5-15); Blood Urea Nitrogen 29 mg/dL (7-18); Calcium 8.6 mg/dL (8.5-10.1); Carbon Dioxide 27.8 meq/L (21.0-32.0); Chloride 103 meq/L (98-107); Glomerular Filtration Rate Greater Than 89 mL/min (>89); Glucose,Random 143 mg/dL (74-106); Potassium 4.2 meq/L (3.5-5.1); Sodium 142 meq/L (136-145)
[2018-01-18] MEDS: Phenytoin Susp 100 MG/4 ML UDC G-TUBE SCH ×2 (10:01→15:29)
[2018-01-18] MEDS: Potassium Chloride 10 MEQ ER Capsule PO SCH (10:02)
[2018-01-18] MEDS: Divalproex 125 MG Sprinkles Capsule G-TUBE SCH ×2 (10:02→20:19)
--- NOTE | 2018-01-18 10:22 | P.PNFP ---
Subjective Interval history: Patient seen and examined this morning. Daughter, Kaci Koenig, was at the bedside. Patient is not sedated and did not open her eyes me calling her name. She did, however, when the nurse was suctioning her mouth. Her daughter requested that we interrogate her pacemaker and speak with neurology about her neuro status. <Kaia Davis - 01/18/18 10:21> Results - Labs Result diagrams: 01/18/18 07:00 01/18/18 07:00 <Suzy Fischer - 01/18/18 21:03> Abnormal lab results 01/18/18 01/18/18 01/18/18 Range/Units 07:00 07:00 13:40 RBC 3.33 L (4.00-5.30) mil/mm3 Hgb 10.2 L D (11.6-15.3) gm/dL Hct 29.5 L (35.0-46.0) % BUN 29 H (7-18) mg/dL Random Glucose 143 H D (74-106) mg/dL Phenytoin 27.1 H (10.0-20.0) mcg/mL Short CBC 01/18/18 Range/Units 07:00 WBC 7.8 (4.0-11.0) th/mm3 Hgb 10.2 L D (11.6-15.3) gm/dL Hct 29.5 L (35.0-46.0) % Plt Count 293 (150-450) th/mm3 BMP 01/18/18 07:00 Sodium 142 Potassium 4.2 D Chloride 103 Carbon Dioxide 27.8 BUN 29 H Creatinine 0.71 Calcium 8.6 <Suzy Fischer - 01/18/18 21:03> Abnormal lab results 01/17/18 01/18/18 01/18/18 Range/Units 05:45 07:00 07:00 RBC 3.33 L (4.00-5.30) mil/mm3 Hgb 10.2 L D (11.6-15.3) gm/dL Hct 29.5 L (35.0-46.0) % BUN 29 H (7-18) mg/dL Random Glucose 143 H D (74-106) mg/dL MTS Gel Crossmatch See Detail Short CBC 01/18/18 Range/Units 07:00 WBC 7.8 (4.0-11.0) th/mm3 Hgb 10.2 L D (11.6-15.3) gm/dL Hct 29.5 L (35.0-46.0) % Plt Count 293 (150-450) th/mm3 BMP 01/18/18 07:00 Sodium 142 Potassium 4.2 D Chloride 103 Carbon Dioxide 27.8 BUN 29 H Creatinine 0.71 Calcium 8.6 <Kaia Davis G - 01/18/18 10:21> Physical Exam Vital signs: Vital Signs 01/17/18 21:09 01/18/18 00:00 01/18/18 00:44 Temperature 96.1 F L Pulse Rate 60 Respiratory Rate 16 16 Blood Pressure 98/46 L Pulse Oximetry 100 100 99 01/18/18 04:00 01/18/18 04:55 01/18/18 08:00 Temperature 95.4 F L 97.3 F L Pulse Rate 60 Respiratory Rate 16 18 16 Blood Pressure 90/44 L 101/47 L Pulse Oximetry 100 98 100 01/18/18 08:48 01/18/18 09:00 01/18/18 11:53 Temperature Pulse Rate 60 Respiratory Rate 17 16 Blood Pressure Pulse Oximetry 100 100 01/18/18 12:00 01/18/18 16:00 01/18/18 16:19 Temperature 95.0 F L 97.0 F L Pulse Rate 60 60 Respiratory Rate 17 Blood Pressure 115/54 L 95/50 L Pulse Oximetry 100 100 100 01/18/18 20:02 Temperature Pulse Rate Respiratory Rate 23 Blood Pressure Pulse Oximetry 100 Intake & Output 01/18/18 01/18/18 01/19/18 06:59 18:59 06:59 Intake Total 633 / 633 770 / 770 Output Total 150 / 150 810 / 810 Balance 483 / 483 -40 / -40 Weight 70.2 kg Intake: IV 500 / 500 Buminate 5% Inj 250 ML @ 250 500 / 500 mls/hr IV.SIG PRN [facility] Rx#: [id number] Oral 0 / 0 Tube Feeding 186 / 186 Tube Irrigant 100 / 100 Water Bolus Amount 0 / 0 270 / 270 Other 347 / 347 Output: Urine 150 / 150 Stool 600 / 600 Urine Amount (Catheter) 210 / 210 Indwelling Temp Sensing 210 / 210 Catheter Other: Date of Last Bowel Movement 01/16/18 01/18/18 # Bowel Movements 2 # Incontinent Bowel Movements 4 2 <Suzy Fischer - 01/18/18 21:03> Vital Signs 01/17/18 11:49 01/17/18 11:52 01/17/18 15:30 Temperature 99.7 F H 98.6 F Pulse Rate 63 60 Respiratory Rate 16 Blood Pressure 134/53 L 92/45 L Pulse Oximetry 100 100 100 01/17/18 16:39 01/17/18 20:00 01/17/18 21:09 Temperature 97.9 F Pulse Rate 60 Respiratory Rate 16 16 Blood Pressure 94/46 L Pulse Oximetry 99 100 100 01/18/18 00:00 01/18/18 00:44 01/18/18 04:00 Temperature 96.1 F L 95.4 F L Pulse Rate 60 60 Respiratory Rate 16 16 Blood Pressure 98/46 L 90/44 L Pulse Oximetry 100 99 100 01/18/18 04:55 01/18/18 08:48 Temperature Pulse Rate Respiratory Rate 18 17 Blood Pressure Pulse Oximetry 98 100 Intake & Output 01/17/18 01/18/18 01/18/18 18:59 06:59 18:59 Intake Total 827 / 827 633 / 633 Output Total 200 / 200 150 / 150 Balance 627 / 627 483 / 483 Weight 76.5 kg 70.2 kg Intake: IV 250 / 250 Buminate 5% Inj 250 ML @ 250 250 / 250 mls/hr IV.SIG PRN [facility] Rx#: [id number] Oral 0 / 0 0 / 0 Tube Feeding 377 / 377 186 / 186 Tube Irrigant 100 / 100 Water Bolus Amount 200 / 200 0 / 0 Other 347 / 347 Intake (Blood Product) Amt 0 / 0 Rbc As-3 Leukoreduced Unit 0 / 0 [id number] Rbc As-3 Leukoreduced Unit 0 / 0 [id number] Output: Urine 150 / 150 Urine Amount (Catheter) 200 / 200 Indwelling Temp Sensing 200 / 200 Catheter Other: Date of Last Bowel Movement 01/16/18 01/16/18 # Bowel Movements 0 # Incontinent Bowel Movements 4 <RyanKaia Presley - 01/18/18 10:21> - Urinary Catheter Management Indwelling Temp Sensing Catheter Cath placed during this visit: no <Suzy Fischer - 01/18/18 21:03> yes <Kaia Davis - 01/18/18 17:51> Reason for continuing: Severe pressure ulcer/wound <Kaia Davis - 01/18/18 10 :21> Insertion date: 01/16/18 <Kaia Davis - 01/18/18 10:21> Insertion time: 04:00 <Kaia Davis - 01/18/18 10:21> Assessment and Plan - Assessment (1) Cardiopulmonary arrest with successful resuscitation Code(s): I46.9 - Cardiac arrest, cause unspecified Status: Acute (2) UTI (urinary tract infection) Code(s): N39.0 - Urinary tract infection, site not specified Status: Acute (3) Clostridium difficile diarrhea Code(s): A04.72 - Enterocolitis due to Clostridium difficile, not specified as recurrent Status: Resolved (4) Sacral pressure ulcer Code(s): L89.159 - Pressure ulcer of sacral region, unspecified stage Status: Acute (5) Acute CVA (cerebrovascular accident) Code(s): I63.9 - Cerebral infarction, unspecified Status: Acute (6) Altered mental status, unspecified Code(s): R41.82 - Altered mental status, unspecified Status: Acute (7) Seizure Code(s): R56.9 - Unspecified convulsions Status: Acute (8) Poor nutrition Code(s): E63.9 - Nutritional deficiency, unspecified Status: Acute (9) Palliative care patient Code(s): Z51.5 - Encounter for palliative care Status: Acute (10) History of CVA (cerebrovascular accident) Code(s): Z86.73 - Personal history of transient ischemic attack (TIA), and cerebral infarction without residual deficits Status: Chronic (11) GERD (gastroesophageal reflux disease) Code(s): K21.9 - Gastro-esophageal reflux disease without esophagitis Status: Chronic (12) Atrial fibrillation Code(s): I48.91 - Unspecified atrial fibrillation Status: Chronic (13) CHF (congestive heart failure) Code(s): I50.9 - Heart failure, unspecified Status: Chronic (14) Hypertension Code(s): I10 - Essential (primary) hypertension Status: Chronic (15) Nutrition, metabolism, and development symptoms Code(s): R63.8 - Other symptoms and signs concerning food and fluid intake Status: Acute (16) DVT prophylaxis Status: Acute <Suzy Fischer - 01/18/18 21:03> (1) Cardiopulmonary arrest with successful resuscitation Code(s): I46.9 - Cardiac arrest, cause unspecified Status: Acute Plan: Patient with cardiopulmonary arrest on the morning of 01/16/18 likely due to hypercapnic respiratory acidosis with severe CVA. Patient with extremely poor prognosis due to multiple comorbidities and will likely need tracheotomy for continued airway protection. Family contacted and requests aggressive care goals at this time. -Critical care consulted, appreciate recommendations -Patient currently intubated for respiratory support, will likely need tracheotomy for continued airway management -PEG tube feeds for management of nutrition (2) UTI (urinary tract infection) Code(s): N39.0 - Urinary tract infection, site not specified Status: Acute Plan: Pt spiked a low grade fever of 100.8F on 01/07/18. She has been afebrile since. UA shows moderate blood, moderate leukocyte esterase, and many bacteria. Patient has completed her course of Rocephin. Urine culture showed Fern albicans. Patient started on Fluconazole after discussion with Dr. Carolina of Neurology (due to fluconazole interacting with Dilantin and increasing its levels). -Rocephin 01/07-01/11 -Patient started on Fluconazole 01/12 (to continue for a total of 14 days) -Dilantin level is high, will hold (3) Clostridium difficile diarrhea Code(s): A04.72 - Enterocolitis due to Clostridium difficile, not specified as recurrent Status: Resolved Plan: Nursing staff reported up to 8 liquid bowel movements on 01/06/18. Patient was found to be positive for C.diff on 01/07. Rectal tube placed, laxative/stool softeners held, Vancomycin per G-tube started and Lactobacillus given 3 times daily. -Rectal tube discontinued as liquid stool has resolved -Vancomycin per G-tube 125 mg 4 times daily for a total of 10 days (01/08-01/18) D/ c'd today -Lactobacillus given to assist with gut rod (4) Sacral pressure ulcer Code(s): L89.159 - Pressure ulcer of sacral region, unspecified stage Status: Acute Plan: Patient found to have stage IV pressure ulcer of the sacrum. Patient placed in appropriate bedding for patient due to sacral wound following wound care recommendations. -Nursing to rotate patient per protocol. -Wound care and wound physician consulted, appreciate recommendations (5) Acute CVA (cerebrovascular accident) Code(s): I63.9 - Cerebral infarction, unspecified Status: Acute Plan: Patient with new ischemic infarct, while on anticoagulation seen on CT head 01/03. Possibly this finding on CT on 01/03 due to new infarct or associated with extension of possible infarct on admission date which is now visible on CT scan. Will not be able to determine as patient was unable to have MRI on admission. Regardless, this is a large infarct and most recent CT from 01/13 shows further evolution with decreased edema (discussed with Dr. Carolina on 01/14) . The risk for this transitioning to hemorrhagic is high. Continue to hold anticoagulation. Neurology is following in this case. Her overall prognosis for meaningful recovery remains very poor. Patients family continue to desire aggressive care and management and are hopeful for a recovery to her baseline prior to admission. -F/u Head CT wo contrast in 2 weeks as an outpatient, afterwards will compare CT scans to determine whether to restart Eliquis -Continue supportive care with PT/OT (6) Altered mental status, unspecified Code(s): R41.82 - Altered mental status, unspecified Status: Acute Plan: Patient's mentation has not returned to baseline due to new evolving right MCA infarct. This is likely her new baseline. -Neurology following Started on Provigil 200mg PEG daily, Dilantin 130 mg liquid PEG BID, Dilantin 100mg liquid PEG @1300 and Divalproex Sprinkles 500mg PEG BID Dilantin held due to high serum levels, will hold until <20, then will start 100mg BID, per neuro recs Eliquis stopped on 01/05 due to concern for hemorrhagic conversion of currently evolving ischemic CVA (7) Seizure Code(s): R56.9 - Unspecified convulsions Status: Acute Plan: Patient with history of seizure disorder. Witnessed seizure at [facility] in a.m. day of admission. No seizures reported during hospitalization. * See Plan above. (8) Poor nutrition Code(s): E63.9 - Nutritional deficiency, unspecified Status: Acute Plan: Patient with poor nutritional status. PEG tube placed and tube feeds started . -Jevity 1.5 at goal rate of 55 ml/hr over 20 hours with 100ml free water flushes Q4H as patient will receive additional free water flushes with medications. (9) Palliative care patient Code(s): Z51.5 - Encounter for palliative care Status: Acute Plan: Palliative care consulted to assist with goals of care. Per family request, the family has repeatedly asked from the palliative care team to not contact them. Appreciate the palliative care team's assistance (10) History of CVA (cerebrovascular accident) Code(s): Z86.73 - Personal history of transient ischemic attack (TIA), and cerebral infarction without residual deficits Status: Chronic Plan: Patient with history of CVA x2. On admission, patient with altered mental status. Last known normal: Day prior to admission. -Please see plan as above (11) GERD (gastroesophageal reflux disease) Code(s): K21.9 - Gastro-esophageal reflux disease without esophagitis Status: Chronic Plan: Patient with history of GERD. Medications: * Pantoprazole IV. (12) Atrial fibrillation Code(s): I48.91 - Unspecified atrial fibrillation Status: Chronic Plan: Patient with history of A. fib. Patient with paroxysmal irregular irregular rhythm on exam. Cardiology consulted as above Medications: * Will continue home Eliquis once cleared from Neurology post CVA * Continue carvedilol (13) CHF (congestive heart failure) Code(s): I50.9 - Heart failure, unspecified Status: Chronic Plan: Patient with history of congestive heart failure. Caution IVF. Medications: * Continue home Lasix and Coreg. (14) Hypertension Code(s): I10 - Essential (primary) hypertension Status: Chronic Plan: Patient with history of hypertension. Per neurology, goal less than 120/80. Medications: * Continue home Coreg. * Clonidine as needed for BP >180/110 (15) Nutrition, metabolism, and development symptoms Code(s): R63.8 - Other symptoms and signs concerning food and fluid intake Status: Acute Plan: Fluid: * Free water flushes Q4H and with medications. Monitor IVF to avoid fluid overload. Electrolyte: * Monitor and replete as necessary. Nutrition: * Tube feeds only with dietary consult. Free water flushes Q4H and with medications (16) DVT prophylaxis Status: Acute Plan: Prophylaxis: * SCDs. <Kaia Davis - 01/18/18 17:44> - Assessment and Plan Patient is an 87 year old female who presents to the [facility] ED via EMS following a witnessed seizure. Patient with history of seizure disorder. Patient given Versed en-route to hospital and Keppra bolus in ED. Patient's GCS 8 at time of admission encounter. Patient originally admitted for evaluation and management of seizure versus CVA. New CVA in right MCA region found by head CT on 01/03 (likely the original inciting event for admission) with further evolution on 01/08. <Kaia Davis - 01/18/18 10:21> Discharge Planning: Pending placement CM consulted to assist <Kaia Davis - 01/18/18 10:21> - Attending Attestation Patient seen, examined, and discussed with resident team this morning. I agree with assessment and management as documented with me. Daughter Kaci Koenig is at bedside, as well as patient's nurse. Daughter confirms that family continues to want aggressive care. We discussed that she is not tracking her eyes, and this was demonstrated when nurse was suctioning. We discussed that if pt codes again, I am afraid she is unlikely to survive the code. Await EEG. Appreciate sandwich and drink cart operator, neurology. Will interrogate pacer at daughter's request. <Suzy Fischer - 01/18/18 21:03> <Kaia Davis - Last Filed: 01/18/18 17:44> (4) Sacral pressure ulcer Qualifiers: Pressure ulcer stage: stage 4 Qualified Code(s): L89.154 - Pressure ulcer of sacral region, stage 4 (6) Altered mental status, unspecified Qualifiers: Altered mental status type: unspecified Qualified Code(s): R41.82 - Altered mental status, unspecified <Suzy Fischer - Last Filed: 01/18/18 21:03> (4) Sacral pressure ulcer Qualifiers: Pressure ulcer stage: stage 4 Qualified Code(s): L89.154 - Pressure ulcer of sacral region, stage 4 (6) Altered mental status, unspecified Qualifiers: Altered mental status type: unspecified Qualified Code(s): R41.82 - Altered mental status, unspecified <Kaia Davis - Last Filed: 01/18/18 17:44> (4) Sacral pressure ulcer Qualifiers: Pressure ulcer stage: stage 4 Qualified Code(s): L89.154 - Pressure ulcer of sacral region, stage 4 (6) Altered mental status, unspecified Qualifiers: Altered mental status type: unspecified Qualified Code(s): R41.82 - Altered mental status, unspecified <Suzy Fischer - Last Filed: 01/18/18 21:03> (4) Sacral pressure ulcer Qualifiers: Pressure ulcer stage: stage 4 Qualified Code(s): L89.154 - Pressure ulcer of sacral region, stage 4 (6) Altered mental status, unspecified Qualifiers: Altered mental status type: unspecified Qualified Code(s): R41.82 - Altered mental status, unspecified
[2018-01-18] MEDS: Pantoprazole Inj 40 MG Vial IV.PUSH SCH (11:26)
[2018-01-18] MEDS: Albumin Human 5% Inj 250 ML IV.SIG SCH ×2 (11:28→14:28)
--- NOTE | 2018-01-18 13:15 | P.PNCC ---
Subjective Subjective Remarks/Hospital Course: 87 year old female admitted initially for evaluation of a witnessed seizure. The patient is retirement resident with multiple medical issues, including history of seizures on Keppra. Per chart review her baseline is alert, confused , and often combative at a retirement. She is verbal. She is able to feed herself; she consumes a pureed, nectar-thick diet. She spends most of her time in chair, with limited mobility. She was admitted to [facility] in December 18 for the above, while in the hospital she developed right MCA stroke with significant damage of almost entire right hemisphere. The patient's daughter is a ICU nurse at outside of [facility] facility , who is requesting to continue aggressive management. Today early in the morning the patient developed respiratory arrest flowed by a cardiac arrest requiring multiple cycles of CPR and epinephrine injections. The initial rhythm was PEA versus asystolic. After approximately 15 minutes of CPR the patient regained spontaneous circulation. She was intubated just prior to arrest, and later central line and A-line was used due to hemodynamic instability. The patient's daughter was called during the CPR and again requested full code and aggressive management. 01/16 1000 hrs: Gas exchange now acceptable and pH problems have been corrected with ventilator manipulations. The etiology of the rest appears to have been a hypercapnic respiratory acidosis superimposed on a large dominant hemisphere acute stroke. Chest x-ray reviewed tubes and lines in good position. Cardiac rhythm appears to be atrial paced. The QRS is wide and I suspect within there somewhere is a sequential ventricular spike although I do not see it on the monitor. Potassium was elevated at 5.8 we will follow that closely. At present she is requiring 8 mcg/min of epinephrine and urine output has been about 40 mL's. Patient remains critically ill. 01/17: no improvements. severely encephalopathic. remains on epinephrine, although digits are now dusky and our vasopressors may be causing more harm than any improvements at this point. will be forced to use ivf for perfusion instead of epinephrine. I was unable to reach family today, though the family medicine service updated the family and they press on for aggressive measures. unlikely to have any meaningful recovery given large stroke superimposed on baseline poor functionality. 01/18: Remains lethargic but opens eyes to painful stimuli. Involuntarily grasped with the right hand. Left upper extremity is flaccid but withdraws bilateral lower extremity. Dilantin level was elevated on 01/16/2016 will recheck level today and tomorrow morning. Discussed in detail with daughter Kaci Objective Vital Signs / I&O: Vital Signs 01/17/18 15:30 01/17/18 16:39 01/17/18 20:00 Temperature 98.6 F 97.9 F Pulse Rate 60 60 Respiratory Rate 16 Blood Pressure 92/45 L 94/46 L Pulse Oximetry 100 99 100 01/17/18 21:09 01/18/18 00:00 01/18/18 00:44 Temperature 96.1 F L Pulse Rate 60 Respiratory Rate 16 16 Blood Pressure 98/46 L Pulse Oximetry 100 100 99 01/18/18 04:00 01/18/18 04:55 01/18/18 08:00 Temperature 95.4 F L 97.3 F L Pulse Rate 60 Respiratory Rate 16 18 16 Blood Pressure 90/44 L 101/47 L Pulse Oximetry 100 98 100 01/18/18 08:48 01/18/18 11:53 Temperature Pulse Rate Respiratory Rate 17 16 Blood Pressure Pulse Oximetry 100 100 Intake & Output 01/17/18 01/18/18 01/18/18 18:59 06:59 18:59 Intake Total 827 / 827 633 / 633 460 / 460 Output Total 200 / 200 150 / 150 Balance 627 / 627 483 / 483 460 / 460 Weight 76.5 kg 70.2 kg Intake: IV 250 / 250 250 / 250 Buminate 5% Inj 250 ML @ 250 250 / 250 250 / 250 mls/hr IV.SIG PRN [facility] Rx#: [id number] Oral 0 / 0 0 / 0 Tube Feeding 377 / 377 186 / 186 Tube Irrigant 100 / 100 Water Bolus Amount 200 / 200 0 / 0 210 / 210 Other 347 / 347 Intake (Blood Product) Amt 0 / 0 Rbc As-3 Leukoreduced Unit 0 / 0 [id number] Rbc As-3 Leukoreduced Unit 0 / 0 [id number] Output: Urine 150 / 150 Urine Amount (Catheter) 200 / 200 Indwelling Temp Sensing 200 / 200 Catheter Other: Date of Last Bowel Movement 01/16/18 01/16/18 01/18/18 # Bowel Movements 0 2 # Incontinent Bowel Movements 4 2 Result Diagrams: 01/18/18 07:00 07/17/18 07:00 Objective Remarks: gen: frail elderly female, lying in bed, comatose heent: pupils are 2mm, equal, reactive. mucous membranes moist. neck: no jvd. trachea midline. chest: full mechanical support. intubated. peep 5. equal chest rise. cv: normal rate, regular rhythm. epinephrine at 6 mcg/min. abd: soft, nontender, nondistended. no guarding. extr: cool, poorly perfused. digits are beginning to mottle. 1+ edema. neuro: Partial eye opening to painful stimuli. Involuntary grasp with right hand. Withdraws bilateral lower extremity due to pain. Left upper extremity is flaccid. +cough. +gag. Assessment and Plan - Assessment and Plan Plan: Assessment: 87yF with acute CVA and now s/p cardiac arrest overlying significant comorbid medical conditions. Poor prognosis. unlikely to have any long-term functional recovery. Discussed with daughter Kaci today Acute hypoxic and Hypercarbic Respiratory failure -Hypercapnic respiratory failure -Poor baseline mental status -Large right CVA -No weaning until neurologically improved -Most likely will need to tracheostomy for an airway protection, if family requests aggressive care Acute CVA -New ischemic infarct while on anticoagulation -High risk for hemorrhagic conversion due to size of the stroke -No anticoagulation recommended -Further management per neurology, Dr. Carolina Cardiogenic shock s/p PEA arrest -Remains off epinephrine -Monitor heart rate blood pressure closely Seizure -Dilantin level supratherapeutic. Hold Dilantin now and daily -management per neurology. -EEG ordered by primary service UTI -Rocephin 01/07-01/11 -Patient started on Fluconazole 01/12 (to continue for a total of 14 days) -Repeat urine cx today Clostridium difficile diarrhea -Vancomycin per G-tube 125 mg 4 times daily -Lactobacillus given to assist with gut rod DVT GI prophylaxis -Teds SCDs -Subcu heparin -Pepcid Overall impression: This woman is critically ill following a cardiac arrest from respiratory acidosis. Her neurologic status is unstable as well and her overall prognosis is guarded. Discussed with Dr. Clemons today. I recommended against tracheostomy and PEG tube however we will proceed according to family wishes Critical care 32 minutes, exclusive of separately billable procedures.
--- NOTE | 2018-01-18 21:11 | MG ---
cc: Tay Kapoor MD, Mandeep MD EEG NUMBER [id number] Asymmetric right hemispheric slowing reduced amplitudes but overall generalized slowing. 4-5 Hz activity on the left, 3-4 Hz on the right. Myogenic electrical artifact occurring off and on throughout the recording. Good EEG variability reactivity. Limited driving with photic stimulation, although a lot of artifact during that time period. Asynchronous waveforms with sinus rhythm on EKG. INTERPRETATION: Asymmetric slowing with mild to moderate encephalopathy. Clinical correlation. MD MICHELLE Freitas/ , 08:59 PM , 09:09 PM
[2018-01-19 07:07] LABS: Hematocrit 29.7 % (35.0-46.0); Hemoglobin 10.3 gm/dL (11.6-15.3); Mean Corpuscular HGB Conc 34.8 % (32.0-36.0); Mean Corpuscular Hemoglobin 30.8 pg (27.0-34.0); Mean Corpuscular Volume 88.7 fL (80.0-100.0); Mean Platelet Volume 7.9 fL (7.0-11.0); Platelet Count 267 th/mm3 (150-450); Red Blood Count 3.35 mil/mm3 (4.00-5.30); White Blood Count 7.4 th/mm3 (4.0-11.0)
[2018-01-19 07:36] LABS: Anion Gap 13 meq/L (5-15); Blood Urea Nitrogen 25 mg/dL (7-18); Calcium 8.3 mg/dL (8.5-10.1); Carbon Dioxide 24.9 meq/L (21.0-32.0); Chloride 105 meq/L (98-107); Glomerular Filtration Rate Greater Than 89 mL/min (>89); Glucose,Random 213 mg/dL (74-106); Phenytoin (Dilantin) 24.6 mcg/mL (10.0-20.0); Potassium 3.4 meq/L (3.5-5.1); Sodium 143 meq/L (136-145)
[2018-01-19] MEDS: Potassium Chloride 10 MEQ ER Capsule PO SCH (08:08)
[2018-01-19] MEDS: Divalproex 125 MG Sprinkles Capsule G-TUBE SCH ×2 (08:08→21:23)
--- NOTE | 2018-01-19 11:00 | P.PNFP ---
Subjective Interval history: Patient seen and examined this morning. Family was not at the bedside. No acute events overnight. Patient did not open her eyes to her name being called or to sternal rub. <RyanKaia G - 01/19/18 11:23> Results - Labs Result diagrams: 01/19/18 06:30 01/19/18 06:30 <Suzy Fischer - 01/19/18 20:58> Abnormal lab results 01/19/18 01/19/18 Range/Units 06:30 06:30 RBC 3.35 L (4.00-5.30) mil/mm3 Hgb 10.3 L (11.6-15.3) gm/dL Hct 29.7 L (35.0-46.0) % Potassium 3.4 L D (3.5-5.1) meq/L BUN 25 H (7-18) mg/dL Random Glucose 213 H (74-106) mg/dL Calcium 8.3 L (8.5-10.1) mg/dL Phenytoin 24.6 H (10.0-20.0) mcg/mL Short CBC 01/19/18 Range/Units 06:30 WBC 7.4 (4.0-11.0) th/mm3 Hgb 10.3 L (11.6-15.3) gm/dL Hct 29.7 L (35.0-46.0) % Plt Count 267 (150-450) th/mm3 BMP 01/19/18 06:30 Sodium 143 Potassium 3.4 L D Chloride 105 Carbon Dioxide 24.9 BUN 25 H Creatinine 0.73 Calcium 8.3 L <Suzy Fischer - 01/19/18 20:58> Abnormal lab results 01/18/18 01/19/18 01/19/18 Range/Units 13:40 06:30 06:30 RBC 3.35 L (4.00-5.30) mil/mm3 Hgb 10.3 L (11.6-15.3) gm/dL Hct 29.7 L (35.0-46.0) % Potassium 3.4 L D (3.5-5.1) meq/L BUN 25 H (7-18) mg/dL Random Glucose 213 H (74-106) mg/dL Calcium 8.3 L (8.5-10.1) mg/dL Phenytoin 27.1 H 24.6 H (10.0-20.0) mcg/mL Short CBC 01/19/18 Range/Units 06:30 WBC 7.4 (4.0-11.0) th/mm3 Hgb 10.3 L (11.6-15.3) gm/dL Hct 29.7 L (35.0-46.0) % Plt Count 267 (150-450) th/mm3 BMP 01/19/18 06:30 Sodium 143 Potassium 3.4 L D Chloride 105 Carbon Dioxide 24.9 BUN 25 H Creatinine 0.73 Calcium 8.3 L <Kaia Davis G - 01/19/18 11:00> - Imaging Impressions Head CT 01/19/18 00:00 CONCLUSION: 1. Stable appearance to the right MCA infarction; no evidence of acute blood products or mass effect. <AaliyahSuzy - 01/19/18 20:58> Physical Exam Vital signs: Vital Signs 01/19/18 00:00 01/19/18 01:01 01/19/18 04:00 Temperature 98.2 F 98.8 F Pulse Rate 62 66 Respiratory Rate 16 18 20 Blood Pressure 124/50 L 120/51 L Pulse Oximetry 100 100 100 01/19/18 04:21 01/19/18 08:00 01/19/18 08:39 Temperature 98.2 F Pulse Rate 66 Respiratory Rate 17 16 17 Blood Pressure Pulse Oximetry 100 100 01/19/18 11:28 01/19/18 12:00 01/19/18 16:00 Temperature 98 F 98.5 F Pulse Rate 74 Respiratory Rate 17 16 Blood Pressure 111/59 L 111/68 Pulse Oximetry 100 01/19/18 17:41 01/19/18 18:42 01/19/18 19:20 Temperature Pulse Rate Respiratory Rate 16 16 Blood Pressure Pulse Oximetry 100 100 100 Intake & Output 01/19/18 01/19/18 01/20/18 06:59 18:59 06:59 Intake Total 914 / 914 600 / 600 Output Total 600 / 600 100 / 100 Balance 314 / 314 500 / 500 Weight 69.1 kg Intake: Oral 0 / 0 Tube Feeding 854 / 854 600 / 600 Tube Irrigant 60 / 60 Water Bolus Amount 0 / 0 Output: Urine 250 / 250 Stool 350 / 350 100 / 100 Other: # Voids 200 Date of Last Bowel Movement 01/18/18 01/18/18 # Incontinent Bowel Movements 3 <Suzy Fischer - 01/19/18 20:58> Vital Signs 01/18/18 11:53 01/18/18 12:00 01/18/18 16:00 Temperature 95.0 F L 97.0 F L Pulse Rate 60 60 Respiratory Rate 16 Blood Pressure 115/54 L 95/50 L Pulse Oximetry 100 100 100 01/18/18 16:19 01/18/18 20:00 01/18/18 20:02 Temperature 97.5 F L Pulse Rate 60 Respiratory Rate 17 16 23 Blood Pressure 124/50 L Pulse Oximetry 100 100 100 01/19/18 00:00 01/19/18 01:01 01/19/18 04:00 Temperature 98.2 F 98.8 F Pulse Rate 62 66 Respiratory Rate 16 18 20 Blood Pressure 124/50 L 120/51 L Pulse Oximetry 100 100 100 01/19/18 04:21 01/19/18 08:00 01/19/18 08:39 Temperature 98.2 F Pulse Rate 66 Respiratory Rate 17 16 17 Blood Pressure Pulse Oximetry 100 100 Intake & Output 01/18/18 01/19/18 01/19/18 18:59 06:59 18:59 Intake Total 770 / 770 914 / 914 Output Total 810 / 810 600 / 600 Balance -40 / -40 314 / 314 Weight 69.1 kg Intake: IV 500 / 500 Buminate 5% Inj 250 ML @ 250 500 / 500 mls/hr IV.SIG PRN [facility] Rx#: [id number] Oral 0 / 0 Tube Feeding 854 / 854 Tube Irrigant 60 / 60 Water Bolus Amount 270 / 270 0 / 0 Output: Urine 250 / 250 Stool 600 / 600 350 / 350 Urine Amount (Catheter) 210 / 210 Indwelling Temp Sensing 210 / 210 Catheter Other: Date of Last Bowel Movement 01/18/18 01/18/18 01/18/18 # Bowel Movements 2 # Incontinent Bowel Movements 2 3 <Kaia Davis - 01/19/18 11:00> Narrative: GENERAL: frail elderly female laying in bed intubated on ventilator, in no acute distress SKIN: Warm and dry. HEAD: Atraumatic. Normocephalic. EYES: No scleral icterus. No injection or drainage. Pupils 1mm bilaterally and nonreactive. Does not track. No startle response. ENT: No nasal bleeding or discharge. NECK: Trachea midline. No JVD. CARDIOVASCULAR: Regular rate and rhythm. RESPIRATORY: No accessory muscle use. Coarse breath sounds diffusely auscultated anteriorly GASTROINTESTINAL: Abdomen soft, non-tender, nondistended. Hepatic and splenic margins not palpable. PEG tube in place without signs of infection, no erythema , no discharge MUSCULOSKELETAL: Extremities without clubbing or cyanosis. No obvious deformities. Anasarca, LUE (3+)>RUE (2+), 2+ pitting edema in bilateral LEs NEUROLOGICAL: Unable to be aroused. Unable to performed full neurological assessment due to patient's mental status <RyanShermanKaia Presley - 01/19/18 11:23> - Urinary Catheter Management Indwelling Temp Sensing Catheter Cath placed during this visit: no <AaliyahAlexae - 01/19/18 20:58> yes <Kaia Davis - 01/19/18 11:23> Reason for continuing: Severe pressure ulcer/wound <RyanKaia - 01/19/18 11 :00> Insertion date: 01/16/18 <[place]ia brown - 01/19/18 11:00> Insertion time: 04:00 <RyanKaia Sherwood - 01/19/18 11:00> Assessment and Plan - Assessment (1) Cardiopulmonary arrest with successful resuscitation Code(s): I46.9 - Cardiac arrest, cause unspecified Status: Acute (2) UTI (urinary tract infection) Code(s): N39.0 - Urinary tract infection, site not specified Status: Acute (3) Clostridium difficile diarrhea Code(s): A04.72 - Enterocolitis due to Clostridium difficile, not specified as recurrent Status: Resolved (4) Sacral pressure ulcer Code(s): L89.159 - Pressure ulcer of sacral region, unspecified stage Status: Acute (5) Acute CVA (cerebrovascular accident) Code(s): I63.9 - Cerebral infarction, unspecified Status: Acute (6) Altered mental status, unspecified Code(s): R41.82 - Altered mental status, unspecified Status: Acute (7) Seizure Code(s): R56.9 - Unspecified convulsions Status: Acute (8) Poor nutrition Code(s): E63.9 - Nutritional deficiency, unspecified Status: Acute (9) Palliative care patient Code(s): Z51.5 - Encounter for palliative care Status: Acute (10) History of CVA (cerebrovascular accident) Code(s): Z86.73 - Personal history of transient ischemic attack (TIA), and cerebral infarction without residual deficits Status: Chronic (11) GERD (gastroesophageal reflux disease) Code(s): K21.9 - Gastro-esophageal reflux disease without esophagitis Status: Chronic (12) Atrial fibrillation Code(s): I48.91 - Unspecified atrial fibrillation Status: Chronic (13) CHF (congestive heart failure) Code(s): I50.9 - Heart failure, unspecified Status: Chronic (14) Hypertension Code(s): I10 - Essential (primary) hypertension Status: Chronic (15) Nutrition, metabolism, and development symptoms Code(s): R63.8 - Other symptoms and signs concerning food and fluid intake Status: Acute (16) DVT prophylaxis Status: Acute <Suzy Fischer - 01/19/18 20:58> (1) Cardiopulmonary arrest with successful resuscitation Code(s): I46.9 - Cardiac arrest, cause unspecified Status: Acute Plan: Patient with cardiopulmonary arrest on the morning of 01/16/18 likely due to hypercapnic respiratory acidosis with severe CVA. Patient with extremely poor prognosis due to multiple comorbidities and will likely need tracheotomy for continued airway protection. Family contacted and requests aggressive care goals at this time. EEG on 01/18 shows asymmetric slowing with mild to moderate encephalopathy. ( Initially order to determine brain functionality after code.) -Critical care consulted, appreciate recommendations -Patient currently intubated for respiratory support, will likely need tracheotomy for continued airway management -PEG tube feeds for management of nutrition (2) UTI (urinary tract infection) Code(s): N39.0 - Urinary tract infection, site not specified Status: Acute Plan: Pt spiked a low grade fever of 100.8F on 01/07/18. She has been afebrile since. UA shows moderate blood, moderate leukocyte esterase, and many bacteria. Patient has completed her course of Rocephin. Urine culture showed Fern albicans. Patient started on Fluconazole after discussion with Dr. Carolina of Neurology (due to fluconazole interacting with Dilantin and increasing its levels). -Rocephin 01/07-01/11 -Patient started on Fluconazole 01/12 (to be discontinued on 01/25, stop date added to order) -Dilantin level is high, will hold until <20 (3) Clostridium difficile diarrhea Code(s): A04.72 - Enterocolitis due to Clostridium difficile, not specified as recurrent Status: Resolved Plan: Nursing staff reported up to 8 liquid bowel movements on 01/06/18. Patient was found to be positive for C.diff on 01/07. Rectal tube placed, laxative/stool softeners held, Vancomycin per G-tube started and Lactobacillus given 3 times daily. -Rectal tube discontinued on 01/12 as liquid stool had resolved, but reinserted on 01/18 due to new diarrhea. Will consider reordering c. diff. However, treatment was just completed yesterday. -Vancomycin per G-tube 125 mg 4 times daily for a total of 10 days (01/08-01/18) -Lactobacillus given to assist with gut rod (4) Sacral pressure ulcer Code(s): L89.159 - Pressure ulcer of sacral region, unspecified stage Status: Acute Plan: Patient found to have stage IV pressure ulcer of the sacrum. Patient placed in appropriate bedding for patient due to sacral wound following wound care recommendations. -Nursing to rotate patient per protocol. -Specialty bed -Wound care and wound physician consulted, appreciate recommendations (5) Acute CVA (cerebrovascular accident) Code(s): I63.9 - Cerebral infarction, unspecified Status: Acute Plan: Patient with new ischemic infarct, while on anticoagulation seen on CT head 01/03. Possibly this finding on CT on 01/03 due to new infarct or associated with extension of possible infarct on admission date which is now visible on CT scan. Will not be able to determine as patient was unable to have MRI on admission. Regardless, this is a large infarct and most recent CT from 01/13 shows further evolution with decreased edema (discussed with Dr. Carolina on 01/14) . The risk for this transitioning to hemorrhagic is high. Continue to hold anticoagulation. Neurology is following in this case. Her overall prognosis for meaningful recovery remains very poor. Patients family continue to desire aggressive care and management and are hopeful for a recovery to her baseline prior to admission. -F/u Head CT wo contrast in 2 weeks as an outpatient, afterwards will compare CT scans to determine whether to restart Eliquis -Continue supportive care with PT/OT (6) Altered mental status, unspecified Code(s): R41.82 - Altered mental status, unspecified Status: Acute Plan: Patient's mentation has not returned to baseline due to new evolving right MCA infarct. This is likely her new baseline. -Neurology following Started on Provigil 200mg PEG daily, Dilantin 130 mg liquid PEG BID, Dilantin 100mg liquid PEG @1300 and Divalproex Sprinkles 500mg PEG BID Dilantin held due to high serum levels, will hold until <20, then will start 100mg BID, per neuro recs Eliquis stopped on 01/05 due to concern for hemorrhagic conversion of currently evolving ischemic CVA (7) Seizure Code(s): R56.9 - Unspecified convulsions Status: Acute Plan: Patient with history of seizure disorder. Witnessed seizure at senior living in a.m. day of admission. No seizures reported during hospitalization. * See Plan above. (8) Poor nutrition Code(s): E63.9 - Nutritional deficiency, unspecified Status: Acute Plan: Patient with poor nutritional status. PEG tube placed and tube feeds started . -Jevity 1.5 at goal rate of 55 ml/hr over 20 hours with 100ml free water flushes Q4H as patient will receive additional free water flushes with medications. (9) Palliative care patient Code(s): Z51.5 - Encounter for palliative care Status: Acute Plan: Palliative care consulted to assist with goals of care. Per family request, the family has repeatedly asked from the palliative care team to not contact them. Appreciate the palliative care team's assistance (10) History of CVA (cerebrovascular accident) Code(s): Z86.73 - Personal history of transient ischemic attack (TIA), and cerebral infarction without residual deficits Status: Chronic Plan: Patient with history of CVA x2. On admission, patient with altered mental status. Last known normal: Day prior to admission. -Please see plan as above (11) GERD (gastroesophageal reflux disease) Code(s): K21.9 - Gastro-esophageal reflux disease without esophagitis Status: Chronic Plan: Patient with history of GERD. Medications: * Pantoprazole IV. (12) Atrial fibrillation Code(s): I48.91 - Unspecified atrial fibrillation Status: Chronic Plan: Patient with history of A. fib. Patient with paroxysmal irregular irregular rhythm on exam. Cardiology consulted as above Medications: * Will continue home Eliquis once cleared from Neurology post CVA * Continue carvedilol (13) CHF (congestive heart failure) Code(s): I50.9 - Heart failure, unspecified Status: Chronic Plan: Patient with history of congestive heart failure. Caution IVF. Medications: * Continue home Lasix and Coreg. (14) Hypertension Code(s): I10 - Essential (primary) hypertension Status: Chronic Plan: Patient with history of hypertension. Per neurology, goal less than 120/80. Medications: * Continue home Coreg. * Clonidine as needed for BP >180/110 (15) Nutrition, metabolism, and development symptoms Code(s): R63.8 - Other symptoms and signs concerning food and fluid intake Status: Acute Plan: Fluid: * Free water flushes Q4H and with medications. Monitor IVF to avoid fluid overload. Electrolyte: * Monitor and replete as necessary. Nutrition: * Tube feeds only with dietary consult. Free water flushes Q4H and with medications (16) DVT prophylaxis Status: Acute Plan: Prophylaxis: * SCDs. <Kaia Davis - 01/19/18 11:05> - Assessment and Plan Patient is an 87 year old female who presents to the [place] ED via EMS following a witnessed seizure. Patient with history of seizure disorder. Patient given Versed en-route to hospital and Keppra bolus in ED. Patient's GCS 8 at time of admission encounter. Patient originally admitted for evaluation and management of seizure versus CVA. New CVA in right MCA region found by head CT on 01/03 (likely the original inciting event for admission) with further evolution on 01/08. <Kaia Davis - 01/19/18 11:00> Discussed Condition With: Dr. Fischer, Dr. Calabrese, Dr. Oneill Family Medicine team will sign off at this time. We will return to service if patient improves in status and is extubated. <Kaia Davis - 01/19/18 11:23> - Attending Attestation Patient seen, examined, and discussed with resident team this morning. I agree with assessment and management as documented and discussed with me. Pt remains intubated. Pupils are small and nonreactive; no blinking with confrontation, no tracking. Appreciate print support specialist. Will sign off on case; please notify once out of ICU or pt is extubated. <AaliyahSuzy - 01/19/18 20:58> <Kaia Davis - Last Filed: 01/19/18 11:05> (4) Sacral pressure ulcer Qualifiers: Pressure ulcer stage: stage 4 Qualified Code(s): L89.154 - Pressure ulcer of sacral region, stage 4 (6) Altered mental status, unspecified Qualifiers: Altered mental status type: unspecified Qualified Code(s): R41.82 - Altered mental status, unspecified <Suzy Fischer - Last Filed: 01/19/18 20:58> (4) Sacral pressure ulcer Qualifiers: Pressure ulcer stage: stage 4 Qualified Code(s): L89.154 - Pressure ulcer of sacral region, stage 4 (6) Altered mental status, unspecified Qualifiers: Altered mental status type: unspecified Qualified Code(s): R41.82 - Altered mental status, unspecified <Kaia Davis - Last Filed: 01/19/18 11:05> (4) Sacral pressure ulcer Qualifiers: Pressure ulcer stage: stage 4 Qualified Code(s): L89.154 - Pressure ulcer of sacral region, stage 4 (6) Altered mental status, unspecified Qualifiers: Altered mental status type: unspecified Qualified Code(s): R41.82 - Altered mental status, unspecified <Suzy Fischer - Last Filed: 01/19/18 20:58> (4) Sacral pressure ulcer Qualifiers: Pressure ulcer stage: stage 4 Qualified Code(s): L89.154 - Pressure ulcer of sacral region, stage 4 (6) Altered mental status, unspecified Qualifiers: Altered mental status type: unspecified Qualified Code(s): R41.82 - Altered mental status, unspecified
[2018-01-19] MEDS ORDERED: Potassium Phosphate 500 MG Soluble Tablet PO PRN ×2 (11:24)
[2018-01-19] MEDS ORDERED: Potassium Chloride 25 MEQ Effervescent Tablet PO PRN (11:24)
[2018-01-19] MEDS ORDERED: Magnesium Sulfate Inj 4 GM in Sodium Chlor 0.9% Inj 92 ML IV.SIG PRN (11:24)
[2018-01-19] MEDS ORDERED: Potassium Chlor 40 mEq Premix 40 MEQ/100 ML PIGGYBACK IV.SIG PRN ×2 (11:24)
[2018-01-19] MEDS ORDERED: Magnesium Sulfate Inj 2 GM in Sodium Chlor 0.9% Inj 96 ML IV.SIG PRN (11:24)
[2018-01-19] MEDS ORDERED: Potassium Phosphate Inj 30 MMOL in Sodium Chlor 0.9% Inj 250 ML IV.SIG PRN (11:24)
[2018-01-19] MEDS ORDERED: Magnesium Oxide 400 MG Tablet PO PRN (11:24)
--- NOTE | 2018-01-19 13:51 | P.PNCC ---
Subjective Subjective Remarks/Hospital Course: 87 year old female admitted initially for evaluation of a witnessed seizure. The patient is intermediate resident with multiple medical issues, including history of seizures on Keppra. Per chart review her baseline is alert, confused , and often combative at a intermediate. She is verbal. She is able to feed herself; she consumes a pureed, nectar-thick diet. She spends most of her time in chair, with limited mobility. She was admitted to [place] in December 18 for the above, while in the hospital she developed right MCA stroke with significant damage of almost entire right hemisphere. The patient's daughter is a ICU nurse at outside of [facility] facility , who is requesting to continue aggressive management. Today early in the morning the patient developed respiratory arrest flowed by a cardiac arrest requiring multiple cycles of CPR and epinephrine injections. The initial rhythm was PEA versus asystolic. After approximately 15 minutes of CPR the patient regained spontaneous circulation. She was intubated just prior to arrest, and later central line and A-line was used due to hemodynamic instability. The patient's daughter was called during the CPR and again requested full code and aggressive management. 01/16 1000 hrs: Gas exchange now acceptable and pH problems have been corrected with ventilator manipulations. The etiology of the rest appears to have been a hypercapnic respiratory acidosis superimposed on a large dominant hemisphere acute stroke. Chest x-ray reviewed tubes and lines in good position. Cardiac rhythm appears to be atrial paced. The QRS is wide and I suspect within there somewhere is a sequential ventricular spike although I do not see it on the monitor. Potassium was elevated at 5.8 we will follow that closely. At present she is requiring 8 mcg/min of epinephrine and urine output has been about 40 mL's. Patient remains critically ill. 01/17: no improvements. severely encephalopathic. remains on epinephrine, although digits are now dusky and our vasopressors may be causing more harm than any improvements at this point. will be forced to use ivf for perfusion instead of epinephrine. I was unable to reach family today, though the family medicine service updated the family and they press on for aggressive measures. unlikely to have any meaningful recovery given large stroke superimposed on baseline poor functionality. 01/18: Remains lethargic but opens eyes to painful stimuli. Involuntarily grasped with the right hand. Left upper extremity is flaccid but withdraws bilateral lower extremity. Dilantin level was elevated on 01/16/2016 will recheck level today and tomorrow morning. Discussed in detail with daughter Kaci 01/19: Neuro exam remains unchanged no improvement in encephalopathy. Dilantin level remains elevated at 24.5, albumin corrected will be much higher. Updated daughter Kaci, she will meet with palliative care today Objective Vital Signs / I&O: Vital Signs 01/18/18 16:00 01/18/18 16:19 01/18/18 20:00 Temperature 97.0 F L 97.5 F L Pulse Rate 60 60 Respiratory Rate 17 16 Blood Pressure 95/50 L 124/50 L Pulse Oximetry 100 100 100 01/18/18 20:02 01/19/18 00:00 01/19/18 01:01 Temperature 98.2 F Pulse Rate 62 Respiratory Rate 23 16 18 Blood Pressure 124/50 L Pulse Oximetry 100 100 100 01/19/18 04:00 01/19/18 04:21 01/19/18 08:00 Temperature 98.8 F 98.2 F Pulse Rate 66 66 Respiratory Rate 20 17 16 Blood Pressure 120/51 L Pulse Oximetry 100 100 01/19/18 08:39 01/19/18 11:28 Temperature Pulse Rate Respiratory Rate 17 17 Blood Pressure Pulse Oximetry 100 100 Intake & Output 01/18/18 01/19/18 01/19/18 18:59 06:59 18:59 Intake Total 770 / 770 914 / 914 Output Total 810 / 810 600 / 600 Balance -40 / -40 314 / 314 Weight 69.1 kg Intake: IV 500 / 500 Buminate 5% Inj 250 ML @ 250 500 / 500 mls/hr IV.SIG PRN [facility] Rx#: [id number] Oral 0 / 0 Tube Feeding 854 / 854 Tube Irrigant 60 / 60 Water Bolus Amount 270 / 270 0 / 0 Output: Urine 250 / 250 Stool 600 / 600 350 / 350 Urine Amount (Catheter) 210 / 210 Indwelling Temp Sensing 210 / 210 Catheter Other: Date of Last Bowel Movement 01/18/18 01/18/18 01/18/18 # Bowel Movements 2 # Incontinent Bowel Movements 2 3 Result Diagrams: 01/19/18 06:30 01/19/18 06:30 Objective Remarks: gen: frail elderly female, lying in bed, partial eye opening to painful stimuli heent: pupils are 2mm, equal, reactive. mucous membranes moist. neck: no jvd. trachea midline. chest: full mechanical support. intubated. peep 5. equal chest rise. cv: normal rate, regular rhythm. abd: soft, nontender, nondistended. no guarding. extr: cool, poorly perfused. 1+ edema. neuro: Partial eye opening to painful stimuli. Involuntary grasp with right hand. Withdraws bilateral lower extremity due to pain. Left upper extremity is flaccid. +cough. +gag. Assessment and Plan - Assessment and Plan Plan: Assessment: 87yF with acute CVA and now s/p cardiac arrest overlying significant comorbid medical conditions. Poor prognosis. unlikely to have any long-term functional recovery. Discussed with daniel Clemons today Acute hypoxic and Hypercarbic Respiratory failure -Hypercapnic respiratory failure -Poor baseline mental status -Large right CVA -No weaning until neurologically improved -Most likely will need to tracheostomy for an airway protection, if family requests aggressive care Acute CVA -New ischemic infarct while on anticoagulation -High risk for hemorrhagic conversion due to size of the stroke -No anticoagulation recommended -Further management per neurology, Dr. Carolina Cardiogenic shock s/p PEA arrest -Remains off epinephrine -Monitor heart rate blood pressure closely Seizure disorder Dilantin toxicity -Dilantin level supratherapeutic. Hold Dilantin now and daily -management per neurology. -EEG ordered by primary service-shows moderate encephalopathy UTI -Rocephin 01/07-01/11 -Patient started on Fluconazole 01/12 (to continue for a total of 14 days) -Repeat urine cx today Clostridium difficile diarrhea -Vancomycin per G-tube 125 mg 4 times daily completed 01/18. Repeat C. difficile test due to diarrhea -Lactobacillus given to assist with gut rod DVT GI prophylaxis -Teds SCDs -Subcu heparin -Pepcid Overall impression: This woman is critically ill following a cardiac arrest from respiratory acidosis. Her neurologic status is unstable as well and her overall prognosis is guarded. Discussed with daniel Clemons extensively. I recommended against tracheostomy and PEG tube however we will proceed according to family wishes. Palliative care will meet with daniel magallon Critical care 32 minutes, exclusive of separately billable procedures.
[2018-01-19] MEDS: Pantoprazole Inj 40 MG Vial IV.PUSH SCH (14:35)
[2018-01-19] MEDS: Aspirin 325 MG Tablet G-TUBE SCH (14:36)
[2018-01-19] MEDS: Potassium Chlor 20 mEq Premix 20 MEQ/100 ML PIGGYBACK IV.SIG PRN ×2 (14:47→21:22)
--- NOTE | 2018-01-19 17:24 | P.PNNEU ---
Subjective Subjective Comments: Pt currently intubated s/p cardiopulmonary arrest 01/16 Active Medications: Active Medications Albuterol (Duoneb Neb (Prn)) 1 ampul INH Q6HR NEB PRN PRN Reason: SOB/WHEEZING Last Admin: 01/14/18 00:52 Dose: 1 ampul Aspirin (Aspirin) 325 mg G-TUBE DAILY [facility] Last Admin: 01/19/18 14:36 Dose: 325 mg Atorvastatin Calcium (Lipitor) 20 mg G-TUBE HS [facility] Last Admin: 01/18/18 20:19 Dose: 20 mg Carvedilol (Coreg) 6.25 mg G-TUBE Q12HR [facility] Last Admin: 01/16/18 10:29 Dose: Not Given Clonidine HCl (Catapres) 0.1 mg PO Q6H PRN PRN Reason: SBP>180, DBP>110 Dextrose (D50w Vial) 50 ml IV.PUSH UNSCH PRN PRN Reason: HYPOGLYCEMIA-SEE COMMENTS Divalproex Sodium (Depakote Sprinkles) 500 mg G-TUBE BID [facility] Last Admin: 01/19/18 08:08 Dose: 500 mg Fluconazole (Diflucan) 200 mg PO DAILY@1800 [facility] Stop: 01/25/18 23:00 Last Admin: 01/18/18 17:54 Dose: 200 mg Furosemide (Lasix) 20 mg G-TUBE DAILY [facility] Last Admin: 01/16/18 10:29 Dose: Not Given Glucagon (Glucagon Inj) 1 mg OTHER UNSCH PRN PRN Reason: for Hypoglycemia Protocol Albumin Human (Buminate 5% Inj) 250 mls @ 250 mls/hr IV.SIG PRN [facility] Last Infusion: 01/18/18 14:52 Dose: Infused Norepinephrine Bitartrate (Levophed-Dextrose 4 Mg/250 Ml Drip) 4 mg in 250 mls @ 7.5 mls/hr IV.SIG TITRATE PRN; Protocol PRN Reason: Per Protocol Last Titration: 01/19/18 00:34 Dose: 0 mcg/min, 0 mls/hr Magnesium Sulfate Inj 4 gm/ (Sodium Chloride) 100 mls @ 50 mls/hr IV.SIG UNSCH PRN PRN Reason: For Magnesium 0.9 - 1.1 mg/dL Magnesium Sulfate Inj 2 gm/ (Sodium Chloride) 100 mls @ 50 mls/hr IV.SIG UNSCH PRN PRN Reason: For Magnesium 1.2 - 1.6 mg/dL Potassium Chloride (Kcl 40 Meq Premix Inj) 40 meq in 100 mls @ 25 mls/hr IV.SIG Q2H PRN PRN Reason: For Potassium 2.8 - 3.2 mEq/L Potassium Chloride (Kcl 20 Meq Premix Inj) 20 meq in 100 mls @ 50 mls/hr IV.SIG Q2H PRN PRN Reason: For Potassium 3.3 - 3.5 mEq/L Last Admin: 01/19/18 14:47 Dose: 50 mls/hr Potassium Chloride (Kcl 40 Meq Premix Inj) 40 meq in 100 mls @ 25 mls/hr IV.SIG UNSCH PRN PRN Reason: For Potassium 3.3 - 3.5 mEq/L Potassium Chloride (Kcl 20 Meq Premix Inj) 20 meq in 100 mls @ 50 mls/hr IV.SIG Q2H PRN PRN Reason: For Potassium 2.8 - 3.2 mEq/L Potassium Phosphate 30 mmol/ (Sodium Chloride) 260 mls @ 42 mls/hr IV.SIG UNSCH PRN PRN Reason: SEE LABEL COMMENTS Sodium Phosphate 30 mmol/ (Sodium Chloride) 260 mls @ 42 mls/hr IV.SIG UNSCH PRN PRN Reason: For Phosphorus < 2.5 mg/dL Lactobacillus Acidophilus (Lactinex Pkt) 1 gm G-TUBE TID [facility] Last Admin: 01/19/18 14:36 Dose: 1 gm Lorazepam (Ativan Inj) 0.5 mg IV.PUSH HS PRN PRN Reason: SLEEP Magnesium Oxide (Mag-Ox) 800 mg PO UNSCH PRN PRN Reason: For Magnesium 1.2 - 1.6 mg/dL Miscellaneous (Pill Splitter) 1 each OTHER UNSCH PRN PRN Reason: SEE LABEL COMMENTS Modafinil (Provigil) 200 mg G-TUBE DAILY [facility] Last Admin: 01/16/18 10:29 Dose: Not Given Multivitamins/Minerals (Theragran-M) 1 tab PO DAILY [facility] Last Admin: 01/17/18 20:11 Dose: Not Given Pantoprazole Sodium (Protonix Inj) 40 mg IV.PUSH Q24H [facility] Last Admin: 01/19/18 14:35 Dose: 40 mg Phenytoin (Dilantin Liq) 130 mg G-TUBE BID [facility] Last Admin: 01/18/18 10:01 Dose: 130 mg Phenytoin (Dilantin Liq) 100 mg G-TUBE DAILY@1300 [facility] Last Admin: 01/18/18 15:29 Dose: Not Given Potassium Bicarb/Potassium Chloride (K-Lyte Cl Eff) 50 meq PO UNSCH PRN PRN Reason: For Potassium 3.3 - 3.5 mEq/L Potassium Chloride (Kcl) 10 meq PO DAILY [facility] Last Admin: 01/19/18 08:08 Dose: 10 meq Potassium Phosphate (K-Phos Original) 2,000 mg PO UNSCH PRN PRN Reason: SEE LABEL COMMENTS Potassium Phosphate (K-Phos Original) 2,000 mg PO Q4H PRN PRN Reason: Phosphorus Less Than 2.5 mg/dL Sodium Chloride (Ns Flush) 2 ml IV.FLUSH BID [facility] Last Admin: 01/19/18 08:14 Dose: 2 ml Sodium Chloride (Ns Flush) 2 ml IV.FLUSH UNSCH PRN PRN Reason: FLUSH AFTER USING IV ACCESS Last Admin: 01/07/18 22:19 Dose: 2 ml Allergies/Adverse Reactions: Allergies Allergy/AdvReac Type Severity Reaction Status Date / Time acetaminophen Allergy Severe nausea and Verified 01/01/18 11:09 vomiting propoxyphene Allergy Severe nausea and Verified 01/01/18 11:09 vomiting MRI PRECAUTION Allergy Severe UNKNOWN Uncoded 01/01/18 11:09 Physical Exam Vital signs: Vital Signs 01/18/18 20:00 01/18/18 20:02 01/19/18 00:00 Temperature 97.5 F L 98.2 F Pulse Rate 60 62 Respiratory Rate 16 23 16 Blood Pressure 124/50 L 124/50 L Pulse Oximetry 100 100 100 01/19/18 01:01 01/19/18 04:00 01/19/18 04:21 Temperature 98.8 F Pulse Rate 66 Respiratory Rate 18 20 17 Blood Pressure 120/51 L Pulse Oximetry 100 100 100 01/19/18 08:00 01/19/18 08:39 01/19/18 11:28 Temperature 98.2 F Pulse Rate 66 Respiratory Rate 16 17 17 Blood Pressure Pulse Oximetry 100 100 Intake & Output 01/18/18 01/19/18 01/19/18 18:59 06:59 18:59 Intake Total 770 / 770 914 / 914 Output Total 810 / 810 600 / 600 Balance -40 / -40 314 / 314 Weight 69.1 kg Intake: IV 500 / 500 Buminate 5% Inj 250 ML @ 250 500 / 500 mls/hr IV.SIG PRN [facility] Rx#: [id number] Oral 0 / 0 Tube Feeding 854 / 854 Tube Irrigant 60 / 60 Water Bolus Amount 270 / 270 0 / 0 Output: Urine 250 / 250 Stool 600 / 600 350 / 350 Urine Amount (Catheter) 210 / 210 Indwelling Temp Sensing 210 / 210 Catheter Other: Date of Last Bowel Movement 01/18/18 01/18/18 01/18/18 # Bowel Movements 2 # Incontinent Bowel Movements 2 3 - Routine Neurological Exam unresponsive, does not follow commands, Pupils 1 mm symmetric reactive. EOM intact to dolls maneuver MOTOR--moves right arm and right leg spontaneously occasionally. No movement on left. decrease tone left arm - Urinary Catheter Management Indwelling Temp Sensing Catheter Cath placed during this visit: yes Reason for continuing: Severe pressure ulcer/wound Insertion date: 01/16/18 Insertion time: 04:00 Objective Laboratory Results - last 24 hr 01/19/18 01/19/18 01/19/18 06:30 06:30 15:00 WBC 7.4 RBC 3.35 L Hgb 10.3 L Hct 29.7 L MCV 88.7 MCH 30.8 MCHC 34.8 RDW 16.0 Plt Count 267 MPV 7.9 Sodium 143 Potassium 3.4 L D Chloride 105 Carbon Dioxide 24.9 Anion Gap 13 BUN 25 H Creatinine 0.73 Estimated GFR Greater than 89 Random Glucose 213 H Calcium 8.3 L Magnesium 1.7 Phenytoin 24.6 H Microbiology 01/18/18 16:20 Urine Culture - Preliminary Catheterized Urine Results Pending Review/Management - Diagnosis (1) Acute right MCA stroke Code(s): I63.511 - Cerebral infarction due to unspecified occlusion or stenosis of right middle cerebral artery Status: Acute Current Visit: Yes (2) Chronic right arterial ischemic stroke, MCA (middle cerebral artery) Code(s): I69.30 - Unspecified sequelae of cerebral infarction Status: Acute Current Visit: Yes (3) Hypertension Code(s): I10 - Essential (primary) hypertension Status: Chronic Current Visit: Yes - Review/Management Plan: I spoke with her daughter regarding prognosis which is very poor for recovery of left sided function given the large size of the stroke. THere is a possibility she may have spared language comprhension by the stroke since she is right handed and probably left hemisphere dominant for language. Will repeat CT to assess as to if other strokes have occurred, SHe cant have MRI due to defibrillator wire. SHe is not a candidate yet for full anticoagulation due to risk of hemorrhagic conversion
--- NOTE | 2018-01-19 19:49 | P.PNPAL ---
Reason for Visit Reason for visit: a. To assist with evaluation and management of symptoms including: encephalopathy, dyspnea. b. To assist medical decision maker(s) with: better understanding of current medical conditions; weighing benefits/burdens of medical treatment options; making medical treatment decisions. . Subjective Subjective/Interval History: Patient is an 87 year old female retirement resident who presented to [place] ED on 12/18/2017 with altered mental status after a witnessed seizure. Patient seen and assessed in room 1314. DaughterKaci at bedside. Patient does not arouse to verbal stimuli or light tactile stimuli. Withdraws to pain bilateral LEs. No movement noted left UE. Patient tolerating tube feeding. Recent lab work reviewed: WBC: 7.4, hemoglobin 10.3, hematocrit 29.7, platelets 267, sodium 143, potassium 3.4, glucose 213, calcium 8.3, BUN 25, creatinine 0.73 and GFR > 89. Dilantin level remains elevated at 24.5. Repeat CT head pending. Discussed with Dr. Oneill and nursing staff. Family/Friend Interactions: Lengthy conversation with daughter/HCS Kaci at bedside. She has a good understanding of current medical problems, prognosis and potential complications the patient may face. I have reviewed the possibility of need for consideration of tracheostomy in the coming days as it does not appear patient will be able to be weaned from mechanical ventilation. Kaci indicates that the patient was somewhat reluctant to designate her as her healthcare surrogate as they have very different end-of-life thoughts. Well Kaci may not want some of these things for herself, she reports that her mother did not care if she lived to be 300 years old and was the only person left. She verbalizes that her job as her mother's healthcare surrogate is to speak for the patient. For major medical decisions she is also consulting with her siblings. Daughter is hoping that patient will be able to have an MRI, she is contacted the patient's central supply tech to determine whether or not she has an MRI compatible pacemaker. She hopes that Dr. Carolina, neurology will be able to provide the family with what he thinks the patient's neurologic status will be in the future. She understands that we are attempting to bring Dilantin level to therapeutic level for reevaluation of neurologic status. Once these things have been completed we will have another discussion with the patient's daughter and other children to further clarify medical treatment goals in particular tracheostomy or not. Palliative care number provided. Questions answered to her satisfaction. She remains open for continued palliative care conversations. Advance Directives Health Care Surrogate: Copy in medical record Durable Power of Vision Rehabilitation Therapist: Copy in medical record Advance Directives Date on File: 12/20/17 Health Care Surrogate Name and Number: Kaci Koenig (primary):[phone] Alt HCS : Connie Hector (alternate): Significant change in goals:: Desires continued aggressive care including FULL CODE at this time. Objective Vital Signs: Vital Signs 01/18/18 20:00 01/18/18 20:02 01/19/18 00:00 Temperature 97.5 F L 98.2 F Pulse Rate 60 62 Respiratory Rate 16 23 16 Blood Pressure 124/50 L 124/50 L Pulse Oximetry 100 100 100 01/19/18 01:01 01/19/18 04:00 01/19/18 04:21 Temperature 98.8 F Pulse Rate 66 Respiratory Rate 18 20 17 Blood Pressure 120/51 L Pulse Oximetry 100 100 100 01/19/18 08:00 01/19/18 08:39 01/19/18 11:28 Temperature 98.2 F Pulse Rate 66 Respiratory Rate 16 17 17 Blood Pressure Pulse Oximetry 100 100 01/19/18 17:41 01/19/18 18:42 Temperature Pulse Rate Respiratory Rate 16 Blood Pressure Pulse Oximetry 100 100 Intake & Output 01/19/18 01/19/18 01/20/18 06:59 18:59 06:59 Intake Total 914 / 914 Output Total 600 / 600 Balance 314 / 314 Weight 69.1 kg Intake: Oral 0 / 0 Tube Feeding 854 / 854 Tube Irrigant 60 / 60 Water Bolus Amount 0 / 0 Output: Urine 250 / 250 Stool 350 / 350 Other: Date of Last Bowel Movement 01/18/18 01/18/18 # Incontinent Bowel Movements 3 Physical Exam: CONSTITUTIONAL/GENERAL: This is a frail, elderly female in no acute distress TUBES/LINES/DRAINS: ETT, PIV, PEG tube SKIN: Skin is thin and fragile. Bandage over dressing C/D/I. Skin temperature appropriate. Not diaphoretic. EYES: Pupils equal and round and reactive. ENT: [place]. Nose without bleeding or purulent drainage. NECK: Trachea midline. CARDIOVASCULAR: RRR RESPIRATORY/CHEST: Symmetric, unlabored respirations on vent. Few scattered coarse breath sounds. GASTROINTESTINAL: Abdomen soft, nondistended. No guarding. Bowel sounds present. GENITOURINARY: Without palpable bladder distension. Purewick in place. MUSCULOSKELETAL: Extremities with edema. NEUROLOGICAL: Does not respond to verbal questions; does not follow commands. Withdraws to painful stimuli bilateral lower extremity. No purposeful movements noted. Left upper extremity flaccid. Positive cough. PSYCHIATRIC: Does not respond to verbal. . Diagnostic Tests Laboratory: Laboratory Results - last 72 hr 01/17/18 01/17/18 01/17/18 04:09 04:09 05:45 WBC 11.6 H D RBC 2.28 L Hgb 6.8 L* Hct 21.5 L MCV 94.2 MCH 29.9 MCHC 31.8 L RDW 16.4 Plt Count 380 MPV 7.9 Prelim Diff (Auto) Manual diff required WBC Differential Manual diff final Seg Neuts % (Manual) 49 Band Neuts % (Manual) 14 H Lymphocytes % (Manual) 19 Monocytes % (Manual) 14 H Basophils % (Manual) 2 Metamyelocytes % (Man) 2 H Abs Neuts (Manual) 7.5 Differential Comment . Toxic Vacuolation Present H Platelet Estimate Normal Platelet Morphology Normal Ovalocytes 1+ H Helmet Cells Occ H Keratocytes Occ H Sodium 142 Potassium 5.2 H Chloride 103 Carbon Dioxide 32.8 H Anion Gap 6 BUN 26 H Creatinine 0.86 Estimated GFR 76 L Random Glucose 340 H D Calcium 7.9 L D Magnesium Total Bilirubin 0.5 AST 56 H ALT 21 Alkaline Phosphatase 79 Total Protein 5.3 L Albumin 1.5 L TSH Cortisol Phenytoin Blood Type O Positive Antibody Screen Negative MTS Gel Crossmatch See Detail 01/18/18 01/18/18 01/18/18 07:00 07:00 13:40 WBC 7.8 RBC 3.33 L Hgb 10.2 L D Hct 29.5 L MCV 88.6 D MCH 30.6 MCHC 34.5 RDW 16.6 Plt Count 293 MPV 8.2 Prelim Diff (Auto) WBC Differential Seg Neuts % (Manual) Band Neuts % (Manual) Lymphocytes % (Manual) Monocytes % (Manual) Basophils % (Manual) Metamyelocytes % (Man) Abs Neuts (Manual) Differential Comment Toxic Vacuolation Platelet Estimate Platelet Morphology Ovalocytes Helmet Cells Keratocytes Sodium 142 Potassium 4.2 D Chloride 103 Carbon Dioxide 27.8 Anion Gap 11 BUN 29 H Creatinine 0.71 Estimated GFR Greater than 89 Random Glucose 143 H D Calcium 8.6 Magnesium Total Bilirubin AST ALT Alkaline Phosphatase Total Protein Albumin TSH Cortisol Phenytoin 27.1 H Blood Type Antibody Screen MTS Gel Crossmatch 01/18/18 01/18/18 01/19/18 13:40 13:40 06:30 WBC 7.4 RBC 3.35 L Hgb 10.3 L Hct 29.7 L MCV 88.7 MCH 30.8 MCHC 34.8 RDW 16.0 Plt Count 267 MPV 7.9 Prelim Diff (Auto) WBC Differential Seg Neuts % (Manual) Band Neuts % (Manual) Lymphocytes % (Manual) Monocytes % (Manual) Basophils % (Manual) Metamyelocytes % (Man) Abs Neuts (Manual) Differential Comment Toxic Vacuolation Platelet Estimate Platelet Morphology Ovalocytes Helmet Cells Keratocytes Sodium Potassium Chloride Carbon Dioxide Anion Gap BUN Creatinine Estimated GFR Random Glucose Calcium Magnesium Total Bilirubin AST ALT Alkaline Phosphatase Total Protein Albumin TSH 1.580 Cortisol 21.2 Phenytoin Blood Type Antibody Screen MTS Gel Crossmatch 01/19/18 01/19/18 06:30 15:00 WBC RBC Hgb Hct MCV MCH MCHC RDW Plt Count MPV Prelim Diff (Auto) WBC Differential Seg Neuts % (Manual) Band Neuts % (Manual) Lymphocytes % (Manual) Monocytes % (Manual) Basophils % (Manual) Metamyelocytes % (Man) Abs Neuts (Manual) Differential Comment Toxic Vacuolation Platelet Estimate Platelet Morphology Ovalocytes Helmet Cells Keratocytes Sodium 143 Potassium 3.4 L D Chloride 105 Carbon Dioxide 24.9 Anion Gap 13 BUN 25 H Creatinine 0.73 Estimated GFR Greater than 89 Random Glucose 213 H Calcium 8.3 L Magnesium 1.7 Total Bilirubin AST ALT Alkaline Phosphatase Total Protein Albumin TSH Cortisol Phenytoin 24.6 H Blood Type Antibody Screen MTS Gel Crossmatch Result Diagrams: 02/11/18 04:53 02/11/18 04:53 Microbiology: Microbiology 01/18/18 16:20 Urine Culture - Preliminary Catheterized Urine Results Pending Imaging: Chest X-Ray 01/17/18 04:00 CONCLUSION: Cardiomegaly with basilar airspace consolidation and small effusions similar to January 16. Procedures: * PEG tube Assessment and Plan Pertinent Non-Medical Issues: Psychosocial: Patient is . She has a high school education but is now retired. Patient has 6 children. Patient currently resides at [facility] in [place]. Spiritual: Yarsani mira Legal: A healthcare surrogate designation form was completed on 05/06/2017 and designates Kaci Koenig as the primary healthcare surrogate decision-maker. Connie Hector is designated as the alternate healthcare surrogate decision maker. Ethical issues impacting care: No known ethical issues impacting care at this time. Important Contacts: Kaci Koenig - Health Care Surrogate: [phone] (C) Connie Jung - Power of Vision Rehabilitation Therapist/alternate HCS: [phone] (C) Alexia Kahn - Son: [phone] (C) or [phone] (H) Prognosis: Patient is a frail 87-year-old female with a complex medical history who was admitted following a witnessed seizure status post PEG tube placement. Unfortunately, placement of a PEG tube will not improve this patient's quality of life or functional status. Given patient's advanced age, multiple comorbid conditions in addition to her acute decline, she will remain high risk for ongoing setbacks and complications. Code Status: Full Code Plan: * Decision-making: Patient does not have insight or judgment related to her current medical conditions; it is unlikely that she will regain capacity. A healthcare surrogate designation form was completed on 05/06/2017 and designates Kaci Koenig as the primary healthcare surrogate decision-maker. Connie Hector is designated as the alternate healthcare surrogate decision maker. * FULL CODE * Met with daughter Kaci (a nurse) at bedside, she has a good understanding of her mother's current condition. She desires continued aggressive care at this time per her mother's previously stated wishes to do everything to keep her alive.She understands she will likely have to make tracheostomy decision in the coming days. She tells me she will include her siblings in this decision. Offered conference call or family meeting if needed. Kaci has called cardiology to determine if patient has an MRI compatible pacemaker as she would feel better if we could obtain MRI of brain. Will arrange family meeting to clarify trach decision once we have more information. * Question Kaci (and other children) requests neurology answer: What would you expect her prognosis to be post stroke? Would necrologic function would she likely be left with and what would she be left without. Do you think patient will be able to communicate again? Make her needs known? * Discussed with Dr. Oneill and nursing staff. * Symptom management: = Encephalopathy: Multifactoral. Contributing factors may metabolic encephalopathy, seizures, CVA, dementia. Patient admitted for evaluation and management of seizures vs. CVA. Patient has a history of previous CVA 2 with residual left-sided weakness. Elevated dilantin levels, will reevaluate neuro status after normalizes. = Dysphasia: Patient has failed multiple swallow studies. Status post PEG tube placement on 12/30/2017. = [facility] will likely need trach if family desires continued aggressive care. * Per case management note, patient does not have any more Medicare days and therefore she cannot be transferred to a facility in [place]. Patient has [place] Medicaid; she was previously residing at [facility] and has been accepted back to that facility. Family considering options; they are willing to send the patient back to [facility] if there is no other alternative. Attestation Collaborating MD Comments: Chart reviewed. Case discussed with palliative care nurse practitioner. Above COREMAKING SUPERVISOR note reviewed and I concur. . Attestation: To help prompt me to consider important information that might be impacting today's encounter and assessment, information from prior notes written by myself or my colleagues may have been "brought forward" into today's note. My signature on this note, however, is an attestation that I personally performed the exam, history, and/or decision-making noted today, and, unless otherwise indicated, the interactions with patient, family, and staff as well as the review of records all occurred today. I also attest that the listed assessment and stated plan reflect my best clinical judgment today based on the combination of historical information, prior notes, and today's exam/ interactions. When time spent is documented, it refers only to time spent today by the signer, or if indicated, combined time spent today by collaborating physician/nurse practitioner.
--- NOTE | 2018-01-19 20:29 | CT ---
EXAM DATE: 01/19/2018 6:14 PM EDT AGE/SEX: 87 years / Female INDICATIONS: Altered mental status. CLINICAL DATA: This is the patient's subsequent encounter. Patient reports that signs and symptoms h ave been present for 1 week and indicates a pain score of Nonresponsive. MEDICAL/SURGICAL HISTORY: Cerebrovascular disease. Cardiovascular disease. Deep venous thrombosis . Hypertension, seizures, afib, Congestive heart failure. None. RADIATION DOSE: 56.35 CTDI (mGy) COMPARISON: [facility] [place], CT HEAD W/O CONTRAST, 01/13/2018. . TECHNIQUE: CT of the head without contrast. Using automated exposure control and adjustment of the mA and/or kV according to patient size, radiation dose was kept as low as reasonably achievable to ob tain optimal diagnostic quality images. DICOM format image data is available electronically for revi ew and comparison. FINDINGS: Cerebrum: Infarct involving the entire right MCA distribution is similar in appearance and density w hen compared to prior CT 01/13/2018. No evidence of ventricular effacement or midline shift. No eviden ce of acute blood products. No extra-axial fluid collections. There is moderate central cortical atro phy in the superior and infratentorial brain, stable from prior. Posterior Fossa: The cerebellum and brainstem are intact. The 4th ventricle is midline. The cerebe llopontine angle is unremarkable. Extracranial: The visualized portion of the orbits is intact. Skull: The calvaria is intact. No evidence of skull fracture. CONCLUSION: 1. Stable appearance to the right MCA infarction; no evidence of acute blood products or mass effect . Electronically signed by: Kris Lilly MD 01/19/2018 8:27 PM EDT
[2018-01-20 07:02] LABS: Hematocrit 29.4 % (35.0-46.0); Hemoglobin 9.9 gm/dL (11.6-15.3); Mean Corpuscular HGB Conc 33.6 % (32.0-36.0); Mean Corpuscular Hemoglobin 30.4 pg (27.0-34.0); Mean Corpuscular Volume 90.6 fL (80.0-100.0); Mean Platelet Volume 8.3 fL (7.0-11.0); Platelet Count 215 th/mm3 (150-450); Red Blood Count 3.25 mil/mm3 (4.00-5.30); Red Cell Distribution Width 15.8 % (11.6-17.2); White Blood Count 6.4 th/mm3 (4.0-11.0)
[2018-01-20 07:17] LABS: Anion Gap 7 meq/L (5-15); Blood Urea Nitrogen 22 mg/dL (7-18); Calcium 7.5 mg/dL (8.5-10.1); Carbon Dioxide 28.5 meq/L (21.0-32.0); Chloride 108 meq/L (98-107); Glomerular Filtration Rate Greater Than 89 mL/min (>89); Glucose,Random 208 mg/dL (74-106); Phenytoin (Dilantin) 20.3 mcg/mL (10.0-20.0); Potassium 3.8 meq/L (3.5-5.1); Sodium 143 meq/L (136-145)
[2018-01-20] MEDS: Potassium Chloride 10 MEQ ER Capsule PO SCH (08:02)
[2018-01-20] MEDS: Aspirin 325 MG Tablet G-TUBE SCH (08:02)
[2018-01-20] MEDS: Divalproex 125 MG Sprinkles Capsule G-TUBE SCH ×2 (08:02→20:52)
--- NOTE | 2018-01-20 11:24 | P.CONWOU ---
History of Present Illness Service: 01/20/18 Primary Care Provider: UNKNOWN History of Present Illness: Patient seen by mortgage underwriter and wound care nurse Gisella Hinkle RN [facility] evaluation of sacral ulcer. She is on ventilator and non responsive. Medications and Allergies Active Medications: Active Medications Albuterol (Duoneb Neb (Prn)) 1 ampul INH Q6HR NEB PRN PRN Reason: SOB/WHEEZING Last Admin: 01/14/18 00:52 Dose: 1 ampul Aspirin (Aspirin) 325 mg G-TUBE DAILY [facility] Last Admin: 01/20/18 08:02 Dose: 325 mg Atorvastatin Calcium (Lipitor) 20 mg G-TUBE HS [facility] Last Admin: 01/19/18 21:24 Dose: 20 mg Carvedilol (Coreg) 6.25 mg G-TUBE Q12HR [facility] Last Admin: 01/16/18 10:29 Dose: Not Given Clonidine HCl (Catapres) 0.1 mg PO Q6H PRN PRN Reason: SBP>180, DBP>110 Collagenase (Santyl Oint) 1 applicatio TOPICAL DAILY [facility] Dextrose (D50w Vial) 50 ml IV.PUSH UNSCH PRN PRN Reason: HYPOGLYCEMIA-SEE COMMENTS Divalproex Sodium (Depakote Sprinkles) 500 mg G-TUBE BID [facility] Last Admin: 01/20/18 08:02 Dose: 500 mg Fluconazole (Diflucan) 200 mg PO DAILY@1800 [facility] Stop: 01/25/18 23:00 Last Admin: 01/19/18 18:00 Dose: 200 mg Furosemide (Lasix) 20 mg G-TUBE DAILY [facility] Last Admin: 01/16/18 10:29 Dose: Not Given Glucagon (Glucagon Inj) 1 mg OTHER UNSCH PRN PRN Reason: for Hypoglycemia Protocol Albumin Human (Buminate 5% Inj) 250 mls @ 250 mls/hr IV.SIG PRN [facility] Last Infusion: 01/18/18 14:52 Dose: Infused Norepinephrine Bitartrate (Levophed-Dextrose 4 Mg/250 Ml Drip) 4 mg in 250 mls @ 7.5 mls/hr IV.SIG TITRATE PRN; Protocol PRN Reason: Per Protocol Last Titration: 01/19/18 00:34 Dose: 0 mcg/min, 0 mls/hr Magnesium Sulfate Inj 4 gm/ (Sodium Chloride) 100 mls @ 50 mls/hr IV.SIG UNSCH PRN PRN Reason: For Magnesium 0.9 - 1.1 mg/dL Magnesium Sulfate Inj 2 gm/ (Sodium Chloride) 100 mls @ 50 mls/hr IV.SIG UNSCH PRN PRN Reason: For Magnesium 1.2 - 1.6 mg/dL Potassium Chloride (Kcl 40 Meq Premix Inj) 40 meq in 100 mls @ 25 mls/hr IV.SIG Q2H PRN PRN Reason: For Potassium 2.8 - 3.2 mEq/L Potassium Chloride (Kcl 40 Meq Premix Inj) 40 meq in 100 mls @ 25 mls/hr IV.SIG UNSCH PRN PRN Reason: For Potassium 3.3 - 3.5 mEq/L Potassium Chloride (Kcl 20 Meq Premix Inj) 20 meq in 100 mls @ 50 mls/hr IV.SIG Q2H PRN PRN Reason: For Potassium 2.8 - 3.2 mEq/L Potassium Phosphate 30 mmol/ (Sodium Chloride) 260 mls @ 42 mls/hr IV.SIG UNSCH PRN PRN Reason: SEE LABEL COMMENTS Sodium Phosphate 30 mmol/ (Sodium Chloride) 260 mls @ 42 mls/hr IV.SIG UNSCH PRN PRN Reason: For Phosphorus < 2.5 mg/dL Lactobacillus Acidophilus (Lactinex Pkt) 1 gm G-TUBE TID [facility] Last Admin: 01/20/18 08:02 Dose: 1 gm Lorazepam (Ativan Inj) 0.5 mg IV.PUSH HS PRN PRN Reason: SLEEP Magnesium Oxide (Mag-Ox) 800 mg PO UNSCH PRN PRN Reason: For Magnesium 1.2 - 1.6 mg/dL Miscellaneous (Pill Splitter) 1 each OTHER UNSCH PRN PRN Reason: SEE LABEL COMMENTS Modafinil (Provigil) 200 mg G-TUBE DAILY [facility] Last Admin: 01/16/18 10:29 Dose: Not Given Multivitamins/Minerals (Theragran-M) 1 tab PO DAILY [facility] Last Admin: 01/17/18 20:11 Dose: Not Given Pantoprazole Sodium (Protonix Inj) 40 mg IV.PUSH Q24H [facility] Last Admin: 01/19/18 14:35 Dose: 40 mg Phenytoin (Dilantin Liq) 130 mg G-TUBE BID [facility] Last Admin: 01/18/18 10:01 Dose: 130 mg Phenytoin (Dilantin Liq) 100 mg G-TUBE DAILY@1300 [facility] Last Admin: 01/18/18 15:29 Dose: Not Given Potassium Bicarb/Potassium Chloride (K-Lyte Cl Eff) 50 meq PO UNSCH PRN PRN Reason: For Potassium 3.3 - 3.5 mEq/L Potassium Chloride (Kcl) 10 meq PO DAILY [facility] Last Admin: 01/20/18 08:02 Dose: 10 meq Potassium Phosphate (K-Phos Original) 2,000 mg PO UNSCH PRN PRN Reason: SEE LABEL COMMENTS Potassium Phosphate (K-Phos Original) 2,000 mg PO Q4H PRN PRN Reason: Phosphorus Less Than 2.5 mg/dL Sodium Chloride (Ns Flush) 2 ml IV.FLUSH BID [facility] Last Admin: 01/19/18 21:24 Dose: 2 ml Sodium Chloride (Ns Flush) 2 ml IV.FLUSH UNSCH PRN PRN Reason: FLUSH AFTER USING IV ACCESS Last Admin: 01/07/18 22:19 Dose: 2 ml Allergies Allergy/AdvReac Type Severity Reaction Status Date / Time acetaminophen Allergy Severe nausea and Verified 01/01/18 11:09 vomiting propoxyphene Allergy Severe nausea and Verified 01/01/18 11:09 vomiting MRI PRECAUTION Allergy Severe UNKNOWN Uncoded 01/01/18 11:09 Home Medications Medication Instructions Recorded Confirmed Type acetaminophen [Tylenol] 650 mg PO Q6H PRN 01/01/18 01/01/18 History apixaban [Eliquis] 2.5 mg PO BID 01/01/18 01/01/18 History atorvastatin 20 mg PO HS 01/01/18 01/01/18 History carvedilol 3.125 mg PO BID 01/01/18 01/01/18 History dextromethorphan-guaifenesin 10 ml PO Q6H 01/01/18 01/01/18 History dextromethorphan-guaifenesin 1 tab PO BID PRN 01/01/18 01/01/18 History [Mucinex DM] docusate sodium [Colace] 100 mg PO Q8H PRN 01/01/18 01/01/18 History furosemide [Lasix] 20 mg PO DAILY 01/01/18 01/01/18 History gabapentin 100 mg PO BID 01/01/18 01/01/18 History hydrocodone-acetaminophen [Hensley] 1 tab PO Q8H PRN 01/01/18 01/01/18 History ipratropium-albuterol 3 ml INHALATION Q6H PRN 01/01/18 01/01/18 History levetiracetam 500 mg PO BID 01/01/18 01/01/18 History mirtazapine 15 mg PO HS 01/01/18 01/01/18 History multivitamin,ch-yuoa-diuwvuen 1 tab PO DAILY 01/01/18 01/01/18 History [Thera-M] omeprazole 20 mg PO DAILY 01/01/18 01/01/18 History polyethylene glycol 3350 [Miralax] 17 g PO DAILY 01/01/18 01/01/18 History potassium chloride 10 meq PO DAILY 01/01/18 01/01/18 History prednisone 2.5 mg PO DAILY 01/01/18 01/01/18 History Physical Exam Vital signs: Vital Signs 01/19/18 11:28 01/19/18 12:00 01/19/18 16:00 Temperature 98 F 98.5 F Pulse Rate 74 Respiratory Rate 17 16 Blood Pressure 111/59 L 111/68 Pulse Oximetry 100 01/19/18 17:41 01/19/18 18:42 01/19/18 19:20 Temperature Pulse Rate Respiratory Rate 16 16 Blood Pressure Pulse Oximetry 100 100 100 01/19/18 20:00 01/20/18 00:00 01/20/18 01:12 Temperature 98.2 F 97.9 F Pulse Rate 72 66 Respiratory Rate 20 16 20 Blood Pressure 130/56 L 122/50 L Pulse Oximetry 100 01/20/18 04:00 01/20/18 04:50 01/20/18 08:00 Temperature 97.5 F L 97.7 F Pulse Rate 64 72 Respiratory Rate 16 16 16 Blood Pressure 116/48 L 119/64 Pulse Oximetry 100 100 100 01/20/18 08:27 01/20/18 09:00 Temperature Pulse Rate 72 Respiratory Rate 16 Blood Pressure Pulse Oximetry 100 Intake & Output 01/19/18 01/20/18 01/20/18 18:59 06:59 18:59 Intake Total 700 / 700 1207 / 1207 Output Total 100 / 100 350 / 350 Balance 600 / 600 857 / 857 Weight 74.3 kg Intake: IV 100 / 100 KCl 20 mEq Premix Inj 20 meq In 100 / 100 100 ml @ 50 mls/hr IV.SIG Q2H PRN Rx#:[id number] Tube Feeding 600 / 600 1107 / 1107 Tube Irrigant 100 / 100 Output: Stool 100 / 100 50 / 50 Urine Amount (Catheter) 300 / 300 Indwelling Temp Sensing 300 / 300 Catheter Other: # Voids 200 Date of Last Bowel Movement 01/18/18 01/20/18 01/20/18 - Urinary Catheter Management Indwelling Temp Sensing Catheter Cath placed during this visit: yes Reason for continuing: Severe pressure ulcer/wound Insertion date: 01/16/18 Insertion time: 04:00 Wound/Pressure Injury - Patient Status Premedicated for Pain Prior to Dressing Change: No - Wound Right Buttocks Wound Staging: Stage IV Wound Assessment: Ongoing Wound Type: Pressure Injury Is This a Chronic Wound: Yes Requested from Provider a Wound Care Consult: Yes (pass on to am nurse/doctor for assessement) Length: 7 (cm) Width: 9 (cm) Depth: 0.2 (cm) Wound Bed Appearance: Necrotic, Yellow Wound Bed Appearance: ~50% black thin eschar,~30% yellow thin adherent slough that is non friable, and ~20% pink tissue. Surrounding Tissue Appearance: Erythema Surrounding Tissue Temperature: Warm Drainage Description: Serosanguinous Drainage Amount: Scant Drainage Odor: No Odor Dressing Status: Changed Cleansing Solution: Saline Topical: Barrier cream Wound Packing Type: Alginate Primary Dressing: Absorbant Pad Cover Dressing: Gauze Pads Wound Dressing Change Date: 01/15/18 Wound Margin Description: Denuded (peeling) Left Sacrum Wound Assessment: Ongoing Wound Type: Pressure Injury Is This a Chronic Wound: Yes Requested from Provider a Wound Care Consult: Yes Wound Bed Appearance: Necrotic, Yellow Surrounding Tissue Appearance: Erythema Surrounding Tissue Temperature: Warm Drainage Description: Serosanguinous Drainage Amount: Scant Drainage Odor: No Odor Dressing Status: Changed Wound Packing Type: Alginate Primary Dressing: Absorbant Pad Cover Dressing: Gauze Pads Wound Dressing Change Date: 01/15/18 Sacrum Wound Staging: Stage IV Wound Assessment: Ongoing Wound Type: Pressure Injury Is This a Chronic Wound: Yes Requested from Provider a Wound Care Consult: (ongoing) Length: 5.5 (~5.5cm) Width: 6 (~6cm) Depth: 0 (eschar and slough) Wound Bed Appearance: Necrotic, Yellow Wound Bed Appearance: Wound bed presents with ~50% thin black eschar, ~30%adherent thin non friable slough, and ~20% pink tissue. Surrounding Tissue Appearance: Erythema Surrounding Tissue Temperature: Warm Drainage Description: Serosanguinous Drainage Amount: Scant Drainage Odor: No Odor Dressing Status: Changed Cleansing Solution: Saline Wound Packing Type: Alginate Primary Dressing: Absorbant Pad Cover Dressing: Gauze Pads Wound Dressing Change Date: 01/15/18 Wound Margin Description: Well defined and open Left Lower Back Wound Staging: Stage II Wound Assessment: Ongoing Wound Type: Pressure Injury Is This a Chronic Wound: Yes Requested from Provider a Wound Care Consult: No Length: 2 (~2cm) Width: 2 (~2cm) Depth: 0.1 (~0.1cm) Wound Bed Appearance: [place], Yellow Wound Bed Appearance: Wound bed presents as 100% pink partial thickness skin loss. Surrounding Tissue Appearance: Erythema Surrounding Tissue Temperature: Warm Drainage Description: Serosanguinous Drainage Amount: Scant Drainage Odor: No Odor Dressing Status: Changed Wound Packing Type: Alginate Primary Dressing: Absorbant Pad Cover Dressing: Gauze Pads Wound Dressing Change Date: 01/17/18 Wound Margin Description: Well defined and open. - Additional Information Patient seen on [address] [place] [address] for follow up of wound to sacral area per Doctor request. Patient is laying in regular bed upon mortgage underwriter's arrival. Patient is non responsive to verbal stimuli. Responds to pain pressure only by guarding and grunting. Patient was turned to L side with the assistance of OCHOA Boyd [address] [place] [address]. Patient is noted laying on cloth pad with disposable ultrasorb pad placed in staggered fashion under patient. Removed adhesive foam dressing to reveal full thickness wound to sacral area. Measurements, and description of sacral wound are noted above.Patient was previously seen by wound care and wound to sacrum was noted as a stage IV pressure injury at that time. Once a wound is identified as a stage IV it will continue to be classified as a stage IV. Patient has Dignisheild and external female catheter in place. There is also another adhesive foam dressing to the L of the sacral wound at 10 o'clock on the side of the lower back Peeled back adhesive foam dressing to reveal stage 2 pressure injury. Descriptions and measurements of wound to L lower back are also noted above. Adhesive foam dressing was applied back in place. Wound to Sacrum was cleansed with normal saline and patted dry. Applied Maxorb II ( calcium alginate to wound bed avoiding intact skin. Covered wound to sacrum with bordered gauze and secondary dressing. Patient was given a bath using medline bath cloths ultrasorb pad and cloth pad were removed replaced with two clean ultrasorb pads placed in staggered fashion. Rowenanet was then transferred to [facility] with the assistance of TREE TOPPER, OCHOA Blunt, directional drill operator Crystal, and mortgage underwriter. Patient was then positioned off bottom with the total assistance of OCHOA Blunt and GARETT.Wound care recommendations are noted above 01/20/18: Wound care Physician note. Wound dimensions today are 6.8cmx8.8cmx eschar. Wound was already dressed with santyl and border gauze. As patient is unstable will clarify orders for dressingl Incision - Patient Status Premedicated for Pain Prior to Dressing Change: No Assessment and Plan - Assessment (1) Stage 4 skin ulcer of sacral region Code(s): L98.429 - Non-pressure chronic ulcer of back with unspecified severity Status: Chronic Plan: Wound dimensions thjis week are 6.8cmx8.8cmx eschar. Orders written for wound to be cleaned daily with normal saline and nickel thick santyl to be applied to the wound and covered with normal saline moistened gauze and border gauze.
--- NOTE | 2018-01-20 12:14 | P.PNCC ---
Subjective Subjective Remarks/Hospital Course: 87 year old female admitted initially for evaluation of a witnessed seizure. The patient is retirement resident with multiple medical issues, including history of seizures on Keppra. Per chart review her baseline is alert, confused , and often combative at a retirement. She is verbal. She is able to feed herself; she consumes a pureed, nectar-thick diet. She spends most of her time in chair, with limited mobility. 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 The patient's daughter is a ICU nurse at outside of [facility] facility , who is requesting to continue aggressive management. Today early in the morning the patient developed respiratory arrest flowed by a cardiac arrest requiring multiple cycles of CPR and epinephrine injections. The initial rhythm was PEA versus asystolic. After approximately 15 minutes of CPR the patient regained spontaneous circulation. She was intubated just prior to arrest, and later central line and A-line was used due to hemodynamic instability. The patient's daughter was called during the CPR and again requested full code and aggressive management. 01/16 1000 hrs: Gas exchange now acceptable and pH problems have been corrected with ventilator manipulations. The etiology of the rest appears to have been a hypercapnic respiratory acidosis superimposed on a large dominant hemisphere acute stroke. Chest x-ray reviewed tubes and lines in good position. Cardiac rhythm appears to be atrial paced. The QRS is wide and I suspect within there somewhere is a sequential ventricular spike although I do not see it on the monitor. Potassium was elevated at 5.8 we will follow that closely. At present she is requiring 8 mcg/min of epinephrine and urine output has been about 40 mL's. Patient remains critically ill. 01/17: no improvements. severely encephalopathic. remains on epinephrine, although digits are now dusky and our vasopressors may be causing more harm than any improvements at this point. will be forced to use ivf for perfusion instead of epinephrine. I was unable to reach family today, though the family medicine service updated the family and they press on for aggressive measures. unlikely to have any meaningful recovery given large stroke superimposed on baseline poor functionality. 01/18: Remains lethargic but opens eyes to painful stimuli. Involuntarily grasped with the right hand. Left upper extremity is flaccid but withdraws bilateral lower extremity. Dilantin level was elevated on 01/16/2016 will recheck level today and tomorrow morning. Discussed in detail with daughter Kaci 01/19: Neuro exam remains unchanged no improvement in encephalopathy. Dilantin level remains elevated at 24.5, albumin corrected will be much higher. Updated daughter Kaci, she will meet with palliative care today 01/20: Patient is still obtunded encephalopathy. Dilantin level further down 20.3. No seizures. Family at this time wants to continue aggressive care. Patient remains hemodynamically more stable. Urine culture growing gram- negative rods started on Rocephin Objective Vital Signs / I&O: Vital Signs 01/19/18 16:00 01/19/18 17:41 01/19/18 18:42 Temperature 98.5 F Pulse Rate Respiratory Rate 16 Blood Pressure 111/68 Pulse Oximetry 100 100 01/19/18 19:20 01/19/18 20:00 01/20/18 00:00 Temperature 98.2 F 97.9 F Pulse Rate 72 66 Respiratory Rate 16 20 16 Blood Pressure 130/56 L 122/50 L Pulse Oximetry 100 01/20/18 01:12 01/20/18 04:00 01/20/18 04:50 Temperature 97.5 F L Pulse Rate 64 Respiratory Rate 20 16 16 Blood Pressure 116/48 L Pulse Oximetry 100 100 100 01/20/18 08:00 01/20/18 08:27 01/20/18 09:00 Temperature 97.7 F Pulse Rate 72 72 Respiratory Rate 16 16 Blood Pressure 119/64 Pulse Oximetry 100 100 01/20/18 11:31 Temperature Pulse Rate Respiratory Rate 17 Blood Pressure Pulse Oximetry 100 Intake & Output 01/19/18 01/20/18 01/20/18 18:59 06:59 18:59 Intake Total 700 / 700 1207 / 1207 Output Total 100 / 100 350 / 350 Balance 600 / 600 857 / 857 Weight 74.3 kg Intake: IV 100 / 100 KCl 20 mEq Premix Inj 20 meq In 100 / 100 100 ml @ 50 mls/hr IV.SIG Q2H PRN Rx#:[id number] Tube Feeding 600 / 600 1107 / 1107 Tube Irrigant 100 / 100 Output: Stool 100 / 100 50 / 50 Urine Amount (Catheter) 300 / 300 Indwelling Temp Sensing 300 / 300 Catheter Other: # Voids 200 Date of Last Bowel Movement 01/18/18 01/20/18 01/20/18 Result Diagrams: 01/20/18 06:30 01/20/18 06:30 Objective Remarks: gen: frail elderly female, lying in bed, partial eye opening to painful stimuli heent: pupils are 2mm, equal, reactive. mucous membranes moist. neck: no jvd. trachea midline. chest: full mechanical support. intubated. peep 5. equal chest rise. Failed CPAP due to apnea cv: normal rate, regular rhythm. abd: soft, nontender, nondistended. no guarding. extr: cool, poorly perfused. 1+ edema. neuro: Partial eye opening to painful stimuli. Involuntary grasp with right hand. Withdraws bilateral lower extremity due to pain. Left upper extremity is flaccid. +cough. +gag. Did not follow commands Assessment and Plan - Assessment and Plan Plan: Assessment: 87yF with acute CVA and now s/p cardiac arrest overlying significant comorbid medical conditions. Poor prognosis. unlikely to have any long-term functional recovery. Discussed with daughter Kaci Acute hypoxic and Hypercarbic Respiratory failure -Hypercapnic respiratory failure -Poor baseline mental status -Large right CVA -Failed CPAP trial secondary to apnea -Most likely will need to tracheostomy for an airway protection, if family requests aggressive care Acute CVA -New ischemic infarct while on anticoagulation -High risk for hemorrhagic conversion due to size of the stroke -No anticoagulation recommended -Further management per neurology, Dr. Carolina, overall prognosis poor per Dr. Carolina Cardiogenic shock s/p PEA arrest -Remains off epinephrine -Monitor heart rate blood pressure closely Seizure disorder Dilantin toxicity -Dilantin level supratherapeutic. Hold Dilantin, uncorrected Dilantin level is 20.3. Continue daily checks -management per neurology. -EEG ordered by primary service-shows moderate encephalopathy UTI -Rocephin 01/07-01/11 -Urine culture GNR, restart Rocephin 01/20/2018 -Patient started on Fluconazole 01/12 (to continue for a total of 14 days) Clostridium difficile diarrhea -Vancomycin per G-tube 125 mg 4 times daily completed 01/18. Repeat C. difficile test due to diarrhea -Lactobacillus given to assist with gut rod DVT GI prophylaxis -Teds SCDs -Subcu heparin -Pepcid Overall impression: This woman is critically ill following a cardiac arrest from respiratory acidosis. Her neurologic status is unstable as well and her overall prognosis is guarded. Discussed with daughter Kaci extensively. I recommended against tracheostomy and PEG tube however we will proceed according to family wishes. Palliative care following Critical care 32 minutes, exclusive of separately billable procedures.
[2018-01-20] MEDS: Pantoprazole Inj 40 MG Vial IV.PUSH SCH (12:28)
--- NOTE | 2018-01-20 15:39 | P.CONCA ---
History of Present Illness Service: Cardiology Consult date: 01/20/18 Primary Care Provider: UNKNOWN Chief Complaint: Afib/Stroke History of Present Illness: 87 year old female well known to our practice with a past cardiac history of atrial fibrillation, Multiple CVAs, Stroke, HTN, bradycardia and dilated cardiomyopathy. Her ICD was downgraded to a pacemaker using LV lead and right atrial lead due to improvement in EF and a fractured lead. Last echo 05/2016 showed an EF of 50%. Her daughter is at her bedside today. Patient is intubated. Events leading up to today are reported by her daughter who is an ICU nurse. She reports that on December 17 her mother was in a [facility] care facility and began having seizures and was brought to the hospital and it was determined that her Dilantin levels were elevated. A few days later she was unable to pass a swallow test and a PEG tube was recommended. Eliquis was held prior to PEG tube placement. Following PEG tube placement patient suffered a large Right MCA stroke. Patient later developed respiratory arrest followed by a cardiac arrest requiring multiple cycles of CPR and epinephrine injections. The initial rhythm was PEA versus asystolic. After approximately 15 minutes of CPR the patient regained spontaneous circulation. She was intubated just prior to arrest. On exam today patient remains intubated, no spontaneous breathing noted. PEG tube, rectal tube and collins cath in place. Her BP and HR are stable. Pacemaker was interrogated on Wednesday. She was recently started on recephin for UTI. She has bilateral upper and lower extremity edema. Left arm is weeping. Review of Systems unobtainable due to endotracheal tube PMFSH - History History Provided By: Family Member - Tobacco History Second Hand Smoke Exposure: No Tobacco Use In Past 30 Days: No Smoking Status: Never smoker - Alcohol History How Often Do You Have a Drink Containing Alcohol: Never - Travel History History of Recent Travel: No Medications and Allergies Active Medications: Active Medications Albuterol (Duoneb Neb (Prn)) 1 ampul INH Q6HR NEB PRN PRN Reason: SOB/WHEEZING Last Admin: 01/14/18 00:52 Dose: 1 ampul Aspirin (Aspirin) 325 mg G-TUBE DAILY [facility] Last Admin: 01/20/18 08:02 Dose: 325 mg Atorvastatin Calcium (Lipitor) 20 mg G-TUBE HS [facility] Last Admin: 01/19/18 21:24 Dose: 20 mg Carvedilol (Coreg) 3.125 mg G-TUBE DAILY [facility] Clonidine HCl (Catapres) 0.1 mg PO Q6H PRN PRN Reason: SBP>180, DBP>110 Collagenase (Santyl Oint) 1 applicatio TOPICAL DAILY [facility] Dextrose (D50w Vial) 50 ml IV.PUSH UNSCH PRN PRN Reason: HYPOGLYCEMIA-SEE COMMENTS Divalproex Sodium (Depakote Sprinkles) 500 mg G-TUBE BID [facility] Last Admin: 01/20/18 08:02 Dose: 500 mg Fluconazole (Diflucan) 200 mg PO DAILY@1800 [facility] Stop: 01/25/18 23:00 Last Admin: 01/19/18 18:00 Dose: 200 mg Furosemide (Lasix) 20 mg G-TUBE DAILY [facility] Last Admin: 01/16/18 10:29 Dose: Not Given Glucagon (Glucagon Inj) 1 mg OTHER UNSCH PRN PRN Reason: for Hypoglycemia Protocol Albumin Human (Buminate 5% Inj) 250 mls @ 250 mls/hr IV.SIG PRN [facility] Last Infusion: 01/18/18 14:52 Dose: Infused Norepinephrine Bitartrate (Levophed-Dextrose 4 Mg/250 Ml Drip) 4 mg in 250 mls @ 7.5 mls/hr IV.SIG TITRATE PRN; Protocol PRN Reason: Per Protocol Last Titration: 01/19/18 00:34 Dose: 0 mcg/min, 0 mls/hr Magnesium Sulfate Inj 4 gm/ (Sodium Chloride) 100 mls @ 50 mls/hr IV.SIG UNSCH PRN PRN Reason: For Magnesium 0.9 - 1.1 mg/dL Magnesium Sulfate Inj 2 gm/ (Sodium Chloride) 100 mls @ 50 mls/hr IV.SIG UNSCH PRN PRN Reason: For Magnesium 1.2 - 1.6 mg/dL Potassium Chloride (Kcl 40 Meq Premix Inj) 40 meq in 100 mls @ 25 mls/hr IV.SIG Q2H PRN PRN Reason: For Potassium 2.8 - 3.2 mEq/L Potassium Chloride (Kcl 40 Meq Premix Inj) 40 meq in 100 mls @ 25 mls/hr IV.SIG UNSCH PRN PRN Reason: For Potassium 3.3 - 3.5 mEq/L Potassium Chloride (Kcl 20 Meq Premix Inj) 20 meq in 100 mls @ 50 mls/hr IV.SIG Q2H PRN PRN Reason: For Potassium 2.8 - 3.2 mEq/L Potassium Phosphate 30 mmol/ (Sodium Chloride) 260 mls @ 42 mls/hr IV.SIG UNSCH PRN PRN Reason: SEE LABEL COMMENTS Sodium Phosphate 30 mmol/ (Sodium Chloride) 260 mls @ 42 mls/hr IV.SIG UNSCH PRN PRN Reason: For Phosphorus < 2.5 mg/dL Ceftriaxone Sodium 2,000 mg/ (Sodium Chloride) 100 mls @ 200 mls/hr IV.SIG Q24H [facility] Last Admin: 01/20/18 12:28 Dose: 200 mls/hr Lactobacillus Acidophilus (Lactinex Pkt) 1 gm G-TUBE TID [facility] Last Admin: 01/20/18 12:29 Dose: 1 gm Lorazepam (Ativan Inj) 0.5 mg IV.PUSH HS PRN PRN Reason: SLEEP Magnesium Oxide (Mag-Ox) 800 mg PO UNSCH PRN PRN Reason: For Magnesium 1.2 - 1.6 mg/dL Miscellaneous (Pill Splitter) 1 each OTHER UNSCH PRN PRN Reason: SEE LABEL COMMENTS Modafinil (Provigil) 200 mg G-TUBE DAILY [facility] Last Admin: 01/16/18 10:29 Dose: Not Given Multivitamins/Minerals (Theragran-M) 1 tab PO DAILY [facility] Last Admin: 01/17/18 20:11 Dose: Not Given Pantoprazole Sodium (Protonix Inj) 40 mg IV.PUSH Q24H [facility] Last Admin: 01/20/18 12:28 Dose: 40 mg Phenytoin (Dilantin Liq) 130 mg G-TUBE BID [facility] Last Admin: 01/18/18 10:01 Dose: 130 mg Phenytoin (Dilantin Liq) 100 mg G-TUBE DAILY@1300 [facility] Last Admin: 01/18/18 15:29 Dose: Not Given Potassium Bicarb/Potassium Chloride (K-Lyte Cl Eff) 50 meq PO UNSCH PRN PRN Reason: For Potassium 3.3 - 3.5 mEq/L Potassium Chloride (Kcl) 10 meq PO DAILY [facility] Last Admin: 01/20/18 08:02 Dose: 10 meq Potassium Phosphate (K-Phos Original) 2,000 mg PO UNSCH PRN PRN Reason: SEE LABEL COMMENTS Potassium Phosphate (K-Phos Original) 2,000 mg PO Q4H PRN PRN Reason: Phosphorus Less Than 2.5 mg/dL Sodium Chloride (Ns Flush) 2 ml IV.FLUSH BID [facility] Last Admin: 01/19/18 21:24 Dose: 2 ml Sodium Chloride (Ns Flush) 2 ml IV.FLUSH UNSCH PRN PRN Reason: FLUSH AFTER USING IV ACCESS Last Admin: 01/07/18 22:19 Dose: 2 ml Allergies Allergy/AdvReac Type Severity Reaction Status Date / Time acetaminophen Allergy Severe nausea and Verified 01/01/18 11:09 vomiting propoxyphene Allergy Severe nausea and Verified 01/01/18 11:09 vomiting MRI PRECAUTION Allergy Severe UNKNOWN Uncoded 01/01/18 11:09 Home Medications Medication Instructions Recorded Confirmed Type acetaminophen [Tylenol] 650 mg PO Q6H PRN 01/01/18 01/01/18 History apixaban [Eliquis] 2.5 mg PO BID 01/01/18 01/01/18 History atorvastatin 20 mg PO HS 01/01/18 01/01/18 History carvedilol 3.125 mg PO BID 01/01/18 01/01/18 History dextromethorphan-guaifenesin 10 ml PO Q6H 01/01/18 01/01/18 History dextromethorphan-guaifenesin 1 tab PO BID PRN 01/01/18 01/01/18 History [Mucinex DM] docusate sodium [Colace] 100 mg PO Q8H PRN 01/01/18 01/01/18 History furosemide [Lasix] 20 mg PO DAILY 01/01/18 01/01/18 History gabapentin 100 mg PO BID 01/01/18 01/01/18 History hydrocodone-acetaminophen [Doyle] 1 tab PO Q8H PRN 01/01/18 01/01/18 History ipratropium-albuterol 3 ml INHALATION Q6H PRN 01/01/18 01/01/18 History levetiracetam 500 mg PO BID 01/01/18 01/01/18 History mirtazapine 15 mg PO HS 01/01/18 01/01/18 History multivitamin,lv-guve-ggytawlz 1 tab PO DAILY 01/01/18 01/01/18 History [Thera-M] omeprazole 20 mg PO DAILY 01/01/18 01/01/18 History polyethylene glycol 3350 [Miralax] 17 g PO DAILY 01/01/18 01/01/18 History potassium chloride 10 meq PO DAILY 01/01/18 01/01/18 History prednisone 2.5 mg PO DAILY 01/01/18 01/01/18 History Exam Vital signs: Vital Signs 01/19/18 16:00 01/19/18 17:41 01/19/18 18:42 Temperature 98.5 F Pulse Rate Respiratory Rate 16 Blood Pressure 111/68 Pulse Oximetry 100 100 01/19/18 19:20 01/19/18 20:00 01/20/18 00:00 Temperature 98.2 F 97.9 F Pulse Rate 72 66 Respiratory Rate 16 20 16 Blood Pressure 130/56 L 122/50 L Pulse Oximetry 100 01/20/18 01:12 01/20/18 04:00 01/20/18 04:50 Temperature 97.5 F L Pulse Rate 64 Respiratory Rate 20 16 16 Blood Pressure 116/48 L Pulse Oximetry 100 100 100 01/20/18 08:00 01/20/18 08:27 01/20/18 09:00 Temperature 97.7 F Pulse Rate 72 72 Respiratory Rate 16 16 Blood Pressure 119/64 Pulse Oximetry 100 100 01/20/18 11:31 01/20/18 12:00 01/20/18 15:21 Temperature 97.7 F Pulse Rate 70 Respiratory Rate 17 18 Blood Pressure 115/59 L Pulse Oximetry 100 100 100 Intake & Output 01/19/18 01/20/18 01/20/18 18:59 06:59 18:59 Intake Total 700 / 700 1207 / 1207 Output Total 100 / 100 350 / 350 Balance 600 / 600 857 / 857 Weight 74.3 kg Intake: IV 100 / 100 KCl 20 mEq Premix Inj 20 meq In 100 / 100 100 ml @ 50 mls/hr IV.SIG Q2H PRN Rx#:[id number] Tube Feeding 600 / 600 1107 / 1107 Tube Irrigant 100 / 100 Output: Stool 100 / 100 50 / 50 Urine Amount (Catheter) 300 / 300 Indwelling Temp Sensing 300 / 300 Catheter Other: # Voids 200 Date of Last Bowel Movement 01/18/18 01/20/18 01/20/18 - Constitutional obtunded - Routine HEENT Exam Head: Present: atraumatic - Routine Respiratory Exam Present: patient mechanically ventilated - Routine Cardiovascular Exam Present: irregularly irregular - Routine Abdominal Exam Comments: PEG tube - Routine Extremities Exam Present: edema - Routine Neurological Exam intubated, unresponsive Results 01/20/18 06:30 01/20/18 06:30 CBC 01/20/18 Range/Units 06:30 WBC 6.4 (4.0-11.0) th/mm3 RBC 3.25 L (4.00-5.30) mil/mm3 Hgb 9.9 L (11.6-15.3) gm/dL Hct 29.4 L (35.0-46.0) % Plt Count 215 (150-450) th/mm3 Comprehensive Metabolic Panel 01/20/18 Range/Units 06:30 Sodium 143 (136-145) meq/L Potassium 3.8 (3.5-5.1) meq/L Chloride 108 H (98-107) meq/L Carbon Dioxide 28.5 (21.0-32.0) meq/L BUN 22 H (7-18) mg/dL Creatinine 0.59 (0.50-1.00) mg/dL Calcium 7.5 L D (8.5-10.1) mg/dL Intake and Output 01/20/18 01/20/18 01/20/18 06:59 14:59 22:59 Intake Total 1207 / 1207 Output Total 350 / 350 Balance 857 / 857 Intake: Tube Feeding 1107 / 1107 Tube Irrigant 100 / 100 Output: Stool 50 / 50 Urine Amount (Catheter) 300 / 300 Indwelling Temp Sensing 300 / 300 Catheter Other: Date of Last Bowel Movement 01/20/18 01/20/18 Weight 74.3 kg Assessment and Plan - Plan Atrial fibrillation Stroke Congestive heart failure Cardiac arrest Will hold off on resuming anticoagulants due to recent large stroke. Concern for hemophagic conversion. Will leave up to neurology when to resume anticoagulants. Will give 1 time dose of IV lasix 20mg and resume Coreg 3.125mg daily. Remains intubated and unresponsive. Patient is critically ill, prognosis guarded. The patient was seen and evaluated by Dr. Dunham who participated in care and management. Code Status: Full Code Discussed Condition With: Nurse and Daughter
[2018-01-21 06:24] LABS: Hematocrit 29.7 % (35.0-46.0); Mean Corpuscular HGB Conc 33.6 % (32.0-36.0); Mean Corpuscular Hemoglobin 30.5 pg (27.0-34.0); Mean Corpuscular Volume 90.6 fL (80.0-100.0); Mean Platelet Volume 8.4 fL (7.0-11.0); Platelet Count 180 th/mm3 (150-450); Red Blood Count 3.28 mil/mm3 (4.00-5.30); Red Cell Distribution Width 16.1 % (11.6-17.2); White Blood Count 4.8 th/mm3 (4.0-11.0)
[2018-01-21 06:50] LABS: Anion Gap 11 meq/L (5-15); Blood Urea Nitrogen 20 mg/dL (7-18); Carbon Dioxide 25.6 meq/L (21.0-32.0); Chloride 105 meq/L (98-107); Glomerular Filtration Rate Greater Than 89 mL/min (>89); Glucose,Random 179 mg/dL (74-106); Potassium 3.1 meq/L (3.5-5.1); Sodium 142 meq/L (136-145)
[2018-01-21 06:52] LABS: Phenytoin (Dilantin) 16.2 mcg/mL (10.0-20.0)
--- NOTE | 2018-01-21 08:45 | P.PNCC ---
Subjective Subjective Remarks/Hospital Course: 87 year old female admitted initially for evaluation of a witnessed seizure. The patient is longterm resident with multiple medical issues, including history of seizures on Keppra. Per chart review her baseline is alert, confused , and often combative at a longterm. She is verbal. She is able to feed herself; she consumes a pureed, nectar-thick diet. She spends most of her time in chair, with limited mobility. She was admitted to [place] in December 18 for the above, while in the hospital she developed right MCA stroke with significant damage of almost entire right hemisphere. The patient's daughter is a ICU nurse at outside of [facility] facility , who is requesting to continue aggressive management. Today early in the morning the patient developed respiratory arrest flowed by a cardiac arrest requiring multiple cycles of CPR and epinephrine injections. The initial rhythm was PEA versus asystolic. After approximately 15 minutes of CPR the patient regained spontaneous circulation. She was intubated just prior to arrest, and later central line and A-line was used due to hemodynamic instability. The patient's daughter was called during the CPR and again requested full code and aggressive management. 01/16 1000 hrs: Gas exchange now acceptable and pH problems have been corrected with ventilator manipulations. The etiology of the rest appears to have been a hypercapnic respiratory acidosis superimposed on a large dominant hemisphere acute stroke. Chest x-ray reviewed tubes and lines in good position. Cardiac rhythm appears to be atrial paced. The QRS is wide and I suspect within there somewhere is a sequential ventricular spike although I do not see it on the monitor. Potassium was elevated at 5.8 we will follow that closely. At present she is requiring 8 mcg/min of epinephrine and urine output has been about 40 mL's. Patient remains critically ill. 01/17: no improvements. severely encephalopathic. remains on epinephrine, although digits are now dusky and our vasopressors may be causing more harm than any improvements at this point. will be forced to use ivf for perfusion instead of epinephrine. I was unable to reach family today, though the family medicine service updated the family and they press on for aggressive measures. unlikely to have any meaningful recovery given large stroke superimposed on baseline poor functionality. 01/18: Remains lethargic but opens eyes to painful stimuli. Involuntarily grasped with the right hand. Left upper extremity is flaccid but withdraws bilateral lower extremity. Dilantin level was elevated on 01/16/2016 will recheck level today and tomorrow morning. Discussed in detail with daughter Kaci 01/19: Neuro exam remains unchanged no improvement in encephalopathy. Dilantin level remains elevated at 24.5, albumin corrected will be much higher. Updated daughter Kaci, she will meet with palliative care today 01/20: Patient is still obtunded encephalopathy. Dilantin level further down 20.3. No seizures. Family at this time wants to continue aggressive care. Patient remains hemodynamically more stable. Urine culture growing gram- negative rods started on Rocephin 01/21: Neuro status remains unchanged remains obtunded encephalopathic. Dilantin level improved to 16.2 today. Urine culture growing ESBL E. coli. Rocephin was discontinued, started on meropenem 1 g IV every 8 hours Objective Vital Signs / I&O: Vital Signs 01/20/18 09:00 01/20/18 11:31 01/20/18 12:00 Temperature 97.7 F Pulse Rate 72 70 Respiratory Rate 17 Blood Pressure 115/59 L Pulse Oximetry 100 100 01/20/18 15:21 01/20/18 16:00 01/20/18 20:00 Temperature 97.6 F 97.9 F Pulse Rate 74 Respiratory Rate 18 18 Blood Pressure 115/58 L 124/58 L Pulse Oximetry 100 95 100 01/20/18 20:03 01/21/18 00:00 01/21/18 02:19 Temperature 99 F Pulse Rate 73 Respiratory Rate 18 16 1 L Blood Pressure 128/60 Pulse Oximetry 100 100 100 01/21/18 04:00 01/21/18 05:53 01/21/18 08:32 Temperature 98.6 F Pulse Rate 77 Respiratory Rate 16 17 14 Blood Pressure 126/59 L Pulse Oximetry 100 100 100 Intake & Output 01/20/18 01/21/18 01/21/18 18:59 06:59 18:59 Intake Total 1303 / 1303 613 / 613 Output Total 1000 / 1000 920 / 920 Balance 303 / 303 -307 / -307 Weight 73.3 kg Intake: IV 100 / 100 Rocephin Inj 2,000 MG In NS Inj 100 / 100 100 ML @ 200 mls/hr IV.SIG Q24H [facility] Rx#:[id number] Oral 0 / 0 Tube Feeding 703 / 703 263 / 263 Tube Irrigant 100 / 100 100 / 100 Water Bolus Amount 400 / 400 250 / 250 Output: Urine 900 / 900 Stool 20 / 20 Urine Amount (Catheter) 1000 / 1000 Indwelling Temp Sensing 1000 / 1000 Catheter Other: Date of Last Bowel Movement 01/20/18 01/20/18 Result Diagrams: 01/21/18 05:50 01/21/18 05:50 Objective Remarks: GEN: frail elderly female, lying in bed, partial eye opening to painful stimuli HEENT: pupils are 2mm, equal, reactive. mucous membranes moist. Neck: no jvd. trachea midline. Chest: intubated. peep 5. equal chest rise. Failing CPAP due to apnea CV: normal rate, regular rhythm. GI: soft, nontender, nondistended. no guarding. EXT: cool, poorly perfused. 1+ edema. Neuro: Partial eye opening to painful stimuli. Involuntary grasp with right hand. Withdraws bilateral lower extremity due to pain. Left upper extremity is flaccid. +cough. +gag. Do not follow commands Assessment and Plan - Assessment and Plan Plan: Assessment: 87yF with acute CVA and now s/p cardiac arrest overlying significant comorbid medical conditions. Poor prognosis. unlikely to have any long-term functional recovery. Discussed with daughter Kaci. Now with ESBL E Coli UTI Acute hypoxic and Hypercarbic Respiratory failure -Hypercapnic respiratory failure -Poor baseline mental status -Large right CVA -Failing CPAP trial secondary to apnea, reduced minute ventilation, check ABG -Most likely will need to tracheostomy for an airway protection, if family requests aggressive care Acute CVA Metabolic encephalopathy Probable anoxic brain injury -New ischemic infarct while on anticoagulation -High risk for hemorrhagic conversion due to size of the stroke -No anticoagulation recommended -Further management per neurology, Dr. Carolina, overall prognosis poor per Dr. Carolina -Sepsis may be contributing to altered mental status Cardiogenic shock -resolved s/p PEA arrest -Remains off epinephrine -Monitor heart rate blood pressure closely Seizure disorder Dilantin toxicity -Dilantin level supratherapeutic. Holding Dilantin, uncorrected Dilantin level is 16.2. Continue daily checks -management per neurology. -EEG ordered by primary service-shows moderate encephalopathy UTI /ESBL E. coli -Rocephin 01/07-01/11 -Urine culture ESBL E. coli, restarted Rocephin 01/20/2018, DC and start Meropenem 01/21/18 -Patient started on Fluconazole 01/12 (to continue for a total of 14 days) Clostridium difficile diarrhea -Vancomycin per G-tube 125 mg 4 times daily completed 01/18. Repeat C. difficile test due to diarrhea, negative -Lactobacillus given to assist with gut rod DVT GI prophylaxis -Teds SCDs -Subcu heparin -Pepcid Overall impression: This woman is critically ill following a cardiac arrest from respiratory acidosis. Her neurologic status is unstable as well and her overall prognosis is guarded. Discussed with pernell Clemons extensively. I recommended against tracheostomy and PEG tube however we will proceed according to family wishes. Palliative care following. Pernell Clemons wants to wait over the weekend to see any neuro improvement, she does not want to place a tracheostomy if there is no neurological improvement Critical care 32 minutes, exclusive of separately billable procedures. Code Status: Full Discussed Condition With: Dr. Carolina, daughter Kaci
[2018-01-21 09:04] LABS: ABG Base Excess 3.7 mmol/L (-2-2); ABG PCO2 42 mmHg (38-42); ABG PO2 142 mmHg (61-120)
[2018-01-21] MEDS: Divalproex 125 MG Sprinkles Capsule G-TUBE SCH ×2 (09:15→20:38)
[2018-01-21] MEDS: Aspirin 325 MG Tablet G-TUBE SCH (09:15)
[2018-01-21] MEDS: Potassium Chloride 10 MEQ ER Capsule PO SCH (09:15)
[2018-01-21] MEDS: Collagenase Oint 30 GM Tube TOPICAL SCH (09:15)
[2018-01-21] MEDS: Potassium Chlor 20 mEq Premix 20 MEQ/100 ML PIGGYBACK IV.SIG PRN ×3 (09:17→15:31)
[2018-01-21] MEDS: Pantoprazole Inj 40 MG Vial IV.PUSH SCH (11:00)
--- NOTE | 2018-01-21 14:11 | P.PNCA ---
Subjective Interval history: Status unchanged overnight. BP remains stable. Intubated, un responsive. Spontaneous movement noted in left lower extremity. Physical Exam Vital signs: Vital Signs 01/20/18 15:21 01/20/18 16:00 01/20/18 20:00 Temperature 97.6 F 97.9 F Pulse Rate 74 Respiratory Rate 18 18 Blood Pressure 115/58 L 124/58 L Pulse Oximetry 100 95 100 01/20/18 20:03 01/21/18 00:00 01/21/18 02:19 Temperature 99 F Pulse Rate 73 Respiratory Rate 18 16 1 L Blood Pressure 128/60 Pulse Oximetry 100 100 100 01/21/18 04:00 01/21/18 05:53 01/21/18 08:32 Temperature 98.6 F Pulse Rate 77 Respiratory Rate 16 17 14 Blood Pressure 126/59 L Pulse Oximetry 100 100 100 01/21/18 11:16 Temperature Pulse Rate Respiratory Rate 14 Blood Pressure Pulse Oximetry 100 Intake & Output 01/20/18 01/21/18 01/21/18 18:59 06:59 18:59 Intake Total 1303 / 1303 613 / 613 100 / 100 Output Total 1000 / 1000 920 / 920 Balance 303 / 303 -307 / -307 100 / 100 Weight 73.3 kg Intake: IV 100 / 100 100 / 100 KCl 20 mEq Premix Inj 20 meq In 100 / 100 100 ml @ 50 mls/hr IV.SIG Q2H PRN Rx#:[id number] Rocephin Inj 2,000 MG In NS Inj 100 / 100 100 ML @ 200 mls/hr IV.SIG Q24H [facility] Rx#:[id number] Oral 0 / 0 Tube Feeding 703 / 703 263 / 263 Tube Irrigant 100 / 100 100 / 100 Water Bolus Amount 400 / 400 250 / 250 Output: Urine 900 / 900 Stool 20 / 20 Urine Amount (Catheter) 1000 / 1000 Indwelling Temp Sensing 1000 / 1000 Catheter Other: Date of Last Bowel Movement 01/20/18 01/20/18 - Constitutional obtunded - Routine HEENT Exam Head: Present: normocephalic ENT: Present: mucous membranes moist - Routine Neck Exam Present: supple - Routine Respiratory Exam Present: patient mechanically ventilated - Routine Cardiovascular Exam Present: RRR - Routine Abdominal Exam Present: soft Comments: PEG tube in place - Routine Exam Comments: collins in place - Routine Extremities Exam Present: edema Comments: upper and lower extremity edema - Routine Neurological Exam unresponsive - Detailed Neurological Exam: Coma Scale Eye Opening: None Verbal Response: None Motor Response: None Jesus Coma Scale Total: 3 - Routine Psychiatric Exam Present: unable to assess - Urinary Catheter Management Indwelling Temp Sensing Catheter Cath placed during this visit: yes Reason for continuing: Severe pressure ulcer/wound Insertion date: 01/16/18 Insertion time: 04:00 Assessment and Plan - Plan Atrial fibrillation Stroke Congestive heart failure Cardiac arrest History of paroxysmal afib. Will hold off on resuming anticoagulants due to recent large stroke. Concern for hemophagic conversion. Will leave up to neurology when to resume anticoagulants. Will resmue coreg 3.125mg daily and start lasix 20mg IV daily, potassium 20meq daily. Remains intubated and unresponsive. Patient is critically ill, prognosis guarded. The patient was seen and evaluated by Dr. Dunham who participated in care and management. Code Status: Full Code Discussed Condition With: Nurse
--- NOTE | 2018-01-21 16:26 | P.PNPAL ---
Call to daughter, Kaci to see if she has any questions concerns. She reports she desires continued aggressive care including FULL CODE. She understands she will likely need to make trach decision early next week. She tells me she spoke with Dr. Carolina, Dr. Oneill and cardiology since my last visit. Questions answered. We agreed to talk again WednesdayJanuary 24 for update, she will be working that day.
--- NOTE | 2018-01-21 16:26 | P.DIET ---
Nutritional Evaluation Type of nutrition evaluation: follow-up Nutrition consult regarding: Tube Feeding Nutrition screening: [facility] (01/07 "pt with severe diarrhea") Subjective Subjective Comments: Pt resides in a NH. Currently intubated and unresponsive. Objective - Diagnosis Seizures, AMS. PMH see H&P - Objective % IBW: 119 (IBW = 135#) Body Weight Used for Calculations: IBW Energy Needs - Lower Range (kCal/kg): 25 Energy Needs - Upper Range (kCal/kg): 30 Lower Limit kCal/kg (kCals): 1,535 Upper Limit kCal/kg (kCals): 1,842 Lower Limit Protein Factor (Grams per Kg): 1.2 Upper Limit Protein Factor (Grams per Kg): 1.5 Lower Protein Needs (Protein): 74 Upper Protein Needs (Protein): 92 Dietitian Reviewed in Medical Record: Curent medications, Intake & Output, Labs , Medical history, Tube feeding, Wound/DTI Diet Order: NPO Wound Care Note: see WOCN dated 01/20: R buttock stage 4, L sacrum, sacrum stage 4, L lower back stage 2 Objective Comments: Labs: K 3.1, glu 179 Dilantin on hold Feeding - Current Tube Feeding Tube Feeding Product: Jevity 1.5 Tube Feeding Rate: 50 Current kCals Provided by Tube Feedin,800 Current Protein Provided by Tube Feeding (gPRO): 77 Current Free H2O Provided (m/l): 912 Assessment Assessment: Pt is s/p cardiac and respiratory arrest (01/16) and is obtunded and encephalopathic. She has been tolerating Jevity 1.5 @ 50 mls/hr and this adequately meets estimated needs. Pt has Dilantin on hold. When/if Dilantin is restarted, TF will need to be held one hour before and one hour after it is given. This will change TF run time and an adjustment will need to be made for goal rate. Significant wt changes noted: 55 kg on (01/12), 67.3 kg on (01/13), 69.2 kg (01/17) and 76.5 kg on (01/17) and CBW = 73.3. LBM 01/20. Will monitor for trends. Elevated glucose noted, may want to consider Glucerna 1.5 formula for better glucose control. Recommendations: Continue Jveity 1.5 @ 50 mls/hr Consider formula change to Glucerna 1.5 for better glucose control Dietitian to Monitor: Lab values, Glucose level, Tube feeding tolerance, Weight change, Wound/skin status, Medical course
--- NOTE | 2018-01-21 16:54 | P.PNNEU ---
Subjective Subjective Comments: No acute events reported Pt reportedly moving RUE and RLE nonpurposeful today Active Medications: Active Medications Albuterol (Duoneb Neb (Prn)) 1 ampul INH Q6HR NEB PRN PRN Reason: SOB/WHEEZING Last Admin: 01/14/18 00:52 Dose: 1 ampul Aspirin (Aspirin) 325 mg G-TUBE DAILY [facility] Last Admin: 01/21/18 09:15 Dose: 325 mg Atorvastatin Calcium (Lipitor) 20 mg G-TUBE HS [facility] Last Admin: 01/20/18 20:57 Dose: 20 mg Carvedilol (Coreg) 3.125 mg G-TUBE DAILY [facility] Clonidine HCl (Catapres) 0.1 mg PO Q6H PRN PRN Reason: SBP>180, DBP>110 Collagenase (Santyl Oint) 1 applicatio TOPICAL DAILY [facility] Last Admin: 01/21/18 09:15 Dose: 1 applicatio Dextrose (D50w Vial) 50 ml IV.PUSH UNSCH PRN PRN Reason: HYPOGLYCEMIA-SEE COMMENTS Divalproex Sodium (Depakote Sprinkles) 500 mg G-TUBE BID [facility] Last Admin: 01/21/18 09:15 Dose: 500 mg Fluconazole (Diflucan) 200 mg PO DAILY@1800 [facility] Stop: 01/25/18 23:00 Last Admin: 01/20/18 17:56 Dose: 200 mg Furosemide (Lasix Inj) 20 mg IV.PUSH DAILY [facility] Glucagon (Glucagon Inj) 1 mg OTHER UNSCH PRN PRN Reason: for Hypoglycemia Protocol Albumin Human (Buminate 5% Inj) 250 mls @ 250 mls/hr IV.SIG PRN [facility] Last Infusion: 01/18/18 14:52 Dose: Infused Norepinephrine Bitartrate (Levophed-Dextrose 4 Mg/250 Ml Drip) 4 mg in 250 mls @ 7.5 mls/hr IV.SIG TITRATE PRN; Protocol PRN Reason: Per Protocol Last Titration: 01/19/18 00:34 Dose: 0 mcg/min, 0 mls/hr Magnesium Sulfate Inj 4 gm/ (Sodium Chloride) 100 mls @ 50 mls/hr IV.SIG UNSCH PRN PRN Reason: For Magnesium 0.9 - 1.1 mg/dL Magnesium Sulfate Inj 2 gm/ (Sodium Chloride) 100 mls @ 50 mls/hr IV.SIG UNSCH PRN PRN Reason: For Magnesium 1.2 - 1.6 mg/dL Potassium Chloride (Kcl 40 Meq Premix Inj) 40 meq in 100 mls @ 25 mls/hr IV.SIG Q2H PRN PRN Reason: For Potassium 2.8 - 3.2 mEq/L Potassium Chloride (Kcl 40 Meq Premix Inj) 40 meq in 100 mls @ 25 mls/hr IV.SIG UNSCH PRN PRN Reason: For Potassium 3.3 - 3.5 mEq/L Potassium Chloride (Kcl 20 Meq Premix Inj) 20 meq in 100 mls @ 50 mls/hr IV.SIG Q2H PRN PRN Reason: For Potassium 2.8 - 3.2 mEq/L Last Admin: 01/21/18 15:31 Dose: 50 mls/hr Potassium Phosphate 30 mmol/ (Sodium Chloride) 260 mls @ 42 mls/hr IV.SIG UNSCH PRN PRN Reason: SEE LABEL COMMENTS Sodium Phosphate 30 mmol/ (Sodium Chloride) 260 mls @ 42 mls/hr IV.SIG UNSCH PRN PRN Reason: For Phosphorus < 2.5 mg/dL Meropenem 1,000 mg/ Sodium (Chloride) 100 mls @ 200 mls/hr IV.SIG Q8H [facility] Last Admin: 01/21/18 10:00 Dose: 200 mls/hr Lactobacillus Acidophilus (Lactinex Pkt) 1 gm G-TUBE TID [facility] Last Admin: 01/21/18 13:33 Dose: 1 gm Lorazepam (Ativan Inj) 0.5 mg IV.PUSH HS PRN PRN Reason: SLEEP Magnesium Oxide (Mag-Ox) 800 mg PO UNSCH PRN PRN Reason: For Magnesium 1.2 - 1.6 mg/dL Miscellaneous (Pill Splitter) 1 each OTHER UNSCH PRN PRN Reason: SEE LABEL COMMENTS Modafinil (Provigil) 200 mg G-TUBE DAILY [facility] Last Admin: 01/16/18 10:29 Dose: Not Given Multivitamins/Minerals (Theragran-M) 1 tab PO DAILY [facility] Last Admin: 01/17/18 20:11 Dose: Not Given Pantoprazole Sodium (Protonix Inj) 40 mg IV.PUSH Q24H [facility] Last Admin: 01/21/18 11:00 Dose: 40 mg Phenytoin (Dilantin Liq) 130 mg G-TUBE BID [facility] Last Admin: 01/18/18 10:01 Dose: 130 mg Phenytoin (Dilantin Liq) 100 mg G-TUBE DAILY@1300 [facility] Last Admin: 01/18/18 15:29 Dose: Not Given Potassium Bicarb/Potassium Chloride (K-Lyte Cl Eff) 50 meq PO UNSCH PRN PRN Reason: For Potassium 3.3 - 3.5 mEq/L Potassium Chloride (K-Dur) 20 meq PO DAILY [facility] Potassium Phosphate (K-Phos Original) 2,000 mg PO UNSCH PRN PRN Reason: SEE LABEL COMMENTS Potassium Phosphate (K-Phos Original) 2,000 mg PO Q4H PRN PRN Reason: Phosphorus Less Than 2.5 mg/dL Sodium Chloride (Ns Flush) 2 ml IV.FLUSH BID [facility] Last Admin: 01/21/18 09:16 Dose: 2 ml Sodium Chloride (Ns Flush) 2 ml IV.FLUSH UNSCH PRN PRN Reason: FLUSH AFTER USING IV ACCESS Last Admin: 01/07/18 22:19 Dose: 2 ml Allergies/Adverse Reactions: Allergies Allergy/AdvReac Type Severity Reaction Status Date / Time acetaminophen Allergy Severe nausea and Verified 01/01/18 11:09 vomiting propoxyphene Allergy Severe nausea and Verified 01/01/18 11:09 vomiting MRI PRECAUTION Allergy Severe UNKNOWN Uncoded 01/01/18 11:09 Physical Exam Vital signs: Vital Signs 01/20/18 20:00 01/20/18 20:03 01/21/18 00:00 Temperature 97.9 F 99 F Pulse Rate 74 73 Respiratory Rate 18 18 16 Blood Pressure 124/58 L 128/60 Pulse Oximetry 100 100 100 01/21/18 02:19 01/21/18 04:00 01/21/18 05:53 Temperature 98.6 F Pulse Rate 77 Respiratory Rate 1 L 16 17 Blood Pressure 126/59 L Pulse Oximetry 100 100 100 01/21/18 08:32 01/21/18 11:16 01/21/18 15:31 Temperature Pulse Rate Respiratory Rate 14 14 16 Blood Pressure Pulse Oximetry 100 100 100 Intake & Output 01/20/18 01/21/18 01/21/18 18:59 06:59 18:59 Intake Total 1303 / 1303 613 / 613 200 / 200 Output Total 1000 / 1000 920 / 920 Balance 303 / 303 -307 / -307 200 / 200 Weight 73.3 kg Intake: IV 100 / 100 200 / 200 KCl 20 mEq Premix Inj 20 meq In 200 / 200 100 ml @ 50 mls/hr IV.SIG Q2H PRN Rx#:[id number] Rocephin Inj 2,000 MG In NS Inj 100 / 100 100 ML @ 200 mls/hr IV.SIG Q24H [facility] Rx#:[id number] Oral 0 / 0 Tube Feeding 703 / 703 263 / 263 Tube Irrigant 100 / 100 100 / 100 Water Bolus Amount 400 / 400 250 / 250 Output: Urine 900 / 900 Stool 20 / 20 Urine Amount (Catheter) 1000 / 1000 Indwelling Temp Sensing 1000 / 1000 Catheter Other: Date of Last Bowel Movement 01/20/18 01/20/18 - Routine Neurological Exam does not follow commands, obtunded PERRL at 2 mm. EOM intact to dolls maneuver MOTOR--withdraws RUE and RLE. No movement left with diminished tone - Urinary Catheter Management Indwelling Temp Sensing Catheter Cath placed during this visit: yes Reason for continuing: Severe pressure ulcer/wound Insertion date: 01/16/18 Insertion time: 04:00 Objective Laboratory Results - last 24 hr 01/21/18 01/21/18 01/21/18 05:50 05:50 05:50 WBC 4.8 RBC 3.28 L Hgb 10.0 L Hct 29.7 L MCV 90.6 MCH 30.5 MCHC 33.6 RDW 16.1 Plt Count 180 MPV 8.4 Puncture Site Patient Temperature O2 Saturation ABG pH ABG pCO2 ABG pO2 ABG HCO3 ABG O2 Content ABG Base Excess ABG Methemoglobin Christian Test Hemoglobin Carboxyhemoglobin O2 Delivery Device Vent Setting Inspired O2 Critical Value Sodium 142 Potassium 3.1 L Chloride 105 Carbon Dioxide 25.6 Anion Gap 11 BUN 20 H Creatinine 0.46 L Estimated GFR Greater than 89 Random Glucose 179 H Calcium 8.0 L Albumin 1.5 L Phenytoin 16.2 01/21/18 08:52 WBC RBC Hgb Hct MCV MCH MCHC RDW Plt Count MPV Puncture Site Right radial Patient Temperature 98.6 O2 Saturation 97 ABG pH 7.44 H ABG pCO2 42 ABG pO2 142 H ABG HCO3 28 H ABG O2 Content 14.9 ABG Base Excess 3.7 H ABG Methemoglobin 0.9 Christian Test Present Hemoglobin 10.7 L Carboxyhemoglobin 1.0 O2 Delivery Device Ventilator Vent Setting Prvc/ac Inspired O2 40 Critical Value No Sodium Potassium Chloride Carbon Dioxide Anion Gap BUN Creatinine Estimated GFR Random Glucose Calcium Albumin Phenytoin Microbiology 01/18/18 16:20 Urine Culture - Final Catheterized Urine Escherichia coli ESBL positive Review/Management - Diagnosis (1) Acute right MCA stroke Code(s): I63.511 - Cerebral infarction due to unspecified occlusion or stenosis of right middle cerebral artery Status: Acute Current Visit: Yes (2) Chronic right arterial ischemic stroke, MCA (middle cerebral artery) Code(s): I69.30 - Unspecified sequelae of cerebral infarction Status: Acute Current Visit: Yes (3) Hypertension Code(s): I10 - Essential (primary) hypertension Status: Chronic Current Visit: Yes
[2018-01-22 06:33] LABS: Hematocrit 31.2 % (35.0-46.0); Hemoglobin 10.4 gm/dL (11.6-15.3); Mean Corpuscular HGB Conc 33.5 % (32.0-36.0); Mean Corpuscular Hemoglobin 30.7 pg (27.0-34.0); Mean Corpuscular Volume 91.8 fL (80.0-100.0); Mean Platelet Volume 8.6 fL (7.0-11.0); Platelet Count 146 th/mm3 (150-450); Red Cell Distribution Width 16.4 % (11.6-17.2); White Blood Count 4.1 th/mm3 (4.0-11.0)
[2018-01-22 07:04] LABS: Anion Gap 7 meq/L (5-15); Blood Urea Nitrogen 17 mg/dL (7-18); Calcium 7.8 mg/dL (8.5-10.1); Carbon Dioxide 28.8 meq/L (21.0-32.0); Chloride 106 meq/L (98-107); Glomerular Filtration Rate Greater Than 89 mL/min (>89); Glucose,Random 157 mg/dL (74-106); Phenytoin (Dilantin) 14.2 mcg/mL (10.0-20.0); Potassium 4.3 meq/L (3.5-5.1); Sodium 142 meq/L (136-145)
[2018-01-22] MEDS: Collagenase Oint 30 GM Tube TOPICAL SCH ×3 (08:01→08:30)
[2018-01-22] MEDS: Divalproex 125 MG Sprinkles Capsule G-TUBE SCH ×2 (08:28→20:39)
[2018-01-22] MEDS: Aspirin 325 MG Tablet G-TUBE SCH (08:28)
[2018-01-22] MEDS: Potassium Chloride 20 MEQ Pwd Pkt G-TUBE SCH (08:29)
--- NOTE | 2018-01-22 12:06 | P.PNCC ---
Subjective Subjective Remarks/Hospital Course: 87 year old female admitted initially for evaluation of a witnessed seizure. The patient is intermediate resident with multiple medical issues, including history of seizures on Keppra. Per chart review her baseline is alert, confused , and often combative at a intermediate. She is verbal. She is able to feed herself; she consumes a pureed, nectar-thick diet. She spends most of her time in chair, with limited mobility. She was admitted to [place] in December 18 for the above, while in the hospital she developed right MCA stroke with significant damage of almost entire right hemisphere. The patient's daughter is a ICU nurse at outside of [facility] , who is requesting to continue aggressive management. Today early in the morning the patient developed respiratory arrest flowed by a cardiac arrest requiring multiple cycles of CPR and epinephrine injections. The initial rhythm was PEA versus asystolic. After approximately 15 minutes of CPR the patient regained spontaneous circulation. She was intubated just prior to arrest, and later central line and A-line was used due to hemodynamic instability. The patient's daughter was called during the CPR and again requested full code and aggressive management. 01/16 1000 hrs: Gas exchange now acceptable and pH problems have been corrected with ventilator manipulations. The etiology of the rest appears to have been a hypercapnic respiratory acidosis superimposed on a large dominant hemisphere acute stroke. Chest x-ray reviewed tubes and lines in good position. Cardiac rhythm appears to be atrial paced. The QRS is wide and I suspect within there somewhere is a sequential ventricular spike although I do not see it on the monitor. Potassium was elevated at 5.8 we will follow that closely. At present she is requiring 8 mcg/min of epinephrine and urine output has been about 40 mL's. Patient remains critically ill. 01/17: no improvements. severely encephalopathic. remains on epinephrine, although digits are now dusky and our vasopressors may be causing more harm than any improvements at this point. will be forced to use ivf for perfusion instead of epinephrine. I was unable to reach family today, though the family medicine service updated the family and they press on for aggressive measures. unlikely to have any meaningful recovery given large stroke superimposed on baseline poor functionality. 01/18: Remains lethargic but opens eyes to painful stimuli. Involuntarily grasped with the right hand. Left upper extremity is flaccid but withdraws bilateral lower extremity. Dilantin level was elevated on 01/16/2016 will recheck level today and tomorrow morning. Discussed in detail with daughter Kaci 01/19: Neuro exam remains unchanged no improvement in encephalopathy. Dilantin level remains elevated at 24.5, albumin corrected will be much higher. Updated daughter Kaci, she will meet with palliative care today 01/20: Patient is still obtunded encephalopathy. Dilantin level further down 20.3. No seizures. Family at this time wants to continue aggressive care. Patient remains hemodynamically more stable. Urine culture growing gram- negative rods started on Rocephin 01/21: Neuro status remains unchanged remains obtunded encephalopathic. Dilantin level improved to 16.2 today. Urine culture growing ESBL E. coli. Rocephin was discontinued, started on meropenem 1 g IV every 8 hours 01/22: Patient remains intubated remains completely off all sedation for several days. Dilantin level down to 14.2 uncorrected. Slightly more responsive to painful stimuli, continues to have partial eye opening. Objective Vital Signs / I&O: Vital Signs 01/21/18 15:31 01/21/18 16:00 01/21/18 20:00 Temperature 97.9 F 98.2 F Pulse Rate 76 74 Respiratory Rate 16 16 14 Blood Pressure 111/71 113/58 L Pulse Oximetry 100 100 100 01/21/18 21:21 01/21/18 22:00 01/21/18 23:55 Temperature Pulse Rate 81 Respiratory Rate 20 14 Blood Pressure Pulse Oximetry 100 01/22/18 00:00 01/22/18 02:00 01/22/18 03:26 Temperature 99.1 F Pulse Rate 80 81 Respiratory Rate 14 14 Blood Pressure 123/59 L Pulse Oximetry 100 100 01/22/18 04:00 01/22/18 06:00 01/22/18 09:01 Temperature 99.3 F Pulse Rate 81 82 Respiratory Rate 14 12 Blood Pressure 144/67 H Pulse Oximetry 100 99 01/22/18 11:25 Temperature Pulse Rate Respiratory Rate Blood Pressure Pulse Oximetry 100 Intake & Output 01/21/18 01/22/18 01/22/18 18:59 06:59 18:59 Intake Total 300 / 300 1202 / 1202 Output Total 400 / 400 Balance 300 / 300 802 / 802 Weight 72 kg Intake: IV 300 / 300 300 / 300 Merrem Inj 1,000 MG In NS Inj 100 / 100 200 / 200 100 ML @ 200 mls/hr IV.SIG Q8H [facility] Rx#:[id number] KCl 20 mEq Premix Inj 20 meq In 200 / 200 100 / 100 100 ml @ 50 mls/hr IV.SIG Q2H PRN Rx#:[id number] Oral 0 / 0 Tube Feeding 702 / 702 Water Bolus Amount 200 / 200 Output: Urine Amount (Catheter) 400 / 400 Indwelling Temp Sensing 400 / 400 Catheter Other: Date of Last Bowel Movement 01/22/18 # Bowel Movements 2 # Incontinent Bowel Movements 2 Result Diagrams: 01/22/18 06:00 01/22/18 06:00 Objective Remarks: GEN: frail elderly female, lying in bed, partial eye opening to painful stimuli HEENT: pupils are 2mm, equal, reactive. mucous membranes moist. Neck: no jvd. trachea midline. Chest: intubated. peep 5. equal chest rise. Tolerating CPAP today CV: normal rate, regular rhythm. GI: soft, nontender, nondistended. no guarding. EXT: cool, poorly perfused. 1+ edema. Neuro: Partial eye opening to painful stimuli. Spontaneously moving right upper extremity. Withdraws bilateral lower extremity due to pain. Left upper extremity is flaccid. +cough. +gag. Do not follow commands Assessment and Plan - Assessment and Plan Plan: Assessment: 87yF with acute CVA and now s/p cardiac arrest overlying significant comorbid medical conditions. Poor prognosis. unlikely to have any long-term functional recovery. Discussed with daughter Kaci. 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 Carolina, overall prognosis poor per Dr. Carolina -Sepsis and Dilantin toxicity may be contributing to altered mental status Cardiogenic shock -resolved s/p PEA arrest -Remains off all pressors -Monitor heart rate blood pressure closely Seizure disorder Dilantin toxicity -Dilantin level supratherapeutic. Holding Dilantin, uncorrected Dilantin level is 14.2. Continue daily checks -management per neurology. -EEG ordered by primary service-shows moderate encephalopathy UTI /ESBL E. coli -Rocephin 01/07-01/11 -Urine culture ESBL E. coli, restarted Rocephin 01/20/2018, DCd and start Meropenem 01/21/18 -Patient started on Fluconazole 01/12 (to continue for a total of 14 days) Clostridium difficile diarrhea -Vancomycin per G-tube 125 mg 4 times daily completed 01/18. Repeat C. difficile test due to diarrhea, negative -Lactobacillus given to assist with gut rod DVT GI prophylaxis -Teds SCDs -Subcu heparin -Pepcid Overall impression: Critically ill following a cardiac arrest. Her neurologic status is unstable as well and her overall prognosis is guarded. Discussed with daniel Clemons extensively. I recommended against tracheostomy and PEG tube however we will proceed according to family wishes. Palliative care following. Daughter Kaci wants to wait over the weekend to see any neuro improvement, she does not want to place a tracheostomy if there is no neurological improvement Level 3 Code Status: Full Discussed Condition With: Dr. Carolina 01/20, 01/21
[2018-01-22] MEDS: Pantoprazole Inj 40 MG Vial IV.PUSH SCH (12:18)
[2018-01-23 06:23] LABS: Hematocrit 30.3 % (35.0-46.0); Hemoglobin 9.9 gm/dL (11.6-15.3); Mean Corpuscular HGB Conc 32.8 % (32.0-36.0); Mean Corpuscular Hemoglobin 30.1 pg (27.0-34.0); Mean Corpuscular Volume 91.9 fL (80.0-100.0); Platelet Count 121 th/mm3 (150-450); White Blood Count 4.1 th/mm3 (4.0-11.0)
[2018-01-23 06:50] LABS: Anion Gap 4 meq/L (5-15); Blood Urea Nitrogen 15 mg/dL (7-18); Calcium 7.7 mg/dL (8.5-10.1); Carbon Dioxide 30.6 meq/L (21.0-32.0); Chloride 106 meq/L (98-107); Glomerular Filtration Rate Greater Than 89 mL/min (>89); Glucose,Random 139 mg/dL (74-106); Potassium 4.2 meq/L (3.5-5.1); Sodium 141 meq/L (136-145)
[2018-01-23 06:52] LABS: Phenytoin (Dilantin) 12.8 mcg/mL (10.0-20.0)
[2018-01-23] MEDS: Aspirin 325 MG Tablet G-TUBE SCH (11:28)
[2018-01-23] MEDS: Divalproex 125 MG Sprinkles Capsule G-TUBE SCH ×2 (11:28→22:28)
[2018-01-23] MEDS: Pantoprazole Inj 40 MG Vial IV.PUSH SCH (11:28)
[2018-01-23] MEDS: Collagenase Oint 30 GM Tube TOPICAL SCH (11:29)
[2018-01-23] MEDS: Potassium Chloride 20 MEQ Pwd Pkt G-TUBE SCH (11:31)
--- NOTE | 2018-01-23 12:15 | P.PNCC ---
Subjective Subjective Remarks/Hospital Course: 87 year old female admitted initially for evaluation of a witnessed seizure. The patient is [facility] resident with multiple medical issues, including history of seizures on Keppra. Per chart review her baseline is alert, confused , and often combative at a [facility]. She is verbal. She is able to feed herself; she consumes a pureed, nectar-thick diet. She spends most of her time in chair, with limited mobility. She was admitted to [place] in December 18 for the above, while in the hospital she developed right MCA stroke with significant damage of almost entire right hemisphere. The patient's daughter is a ICU nurse at outside of counts include 234 beds at the [facility] , who is requesting to continue aggressive management. Today early in the morning the patient developed respiratory arrest flowed by a cardiac arrest requiring multiple cycles of CPR and epinephrine injections. The initial rhythm was PEA versus asystolic. After approximately 15 minutes of CPR the patient regained spontaneous circulation. She was intubated just prior to arrest, and later central line and A-line was used due to hemodynamic instability. The patient's daughter was called during the CPR and again requested full code and aggressive management. 01/16 1000 hrs: Gas exchange now acceptable and pH problems have been corrected with ventilator manipulations. The etiology of the rest appears to have been a hypercapnic respiratory acidosis superimposed on a large dominant hemisphere acute stroke. Chest x-ray reviewed tubes and lines in good position. Cardiac rhythm appears to be atrial paced. The QRS is wide and I suspect within there somewhere is a sequential ventricular spike although I do not see it on the monitor. Potassium was elevated at 5.8 we will follow that closely. At present she is requiring 8 mcg/min of epinephrine and urine output has been about 40 mL's. Patient remains critically ill. 01/17: no improvements. severely encephalopathic. remains on epinephrine, although digits are now dusky and our vasopressors may be causing more harm than any improvements at this point. will be forced to use ivf for perfusion instead of epinephrine. I was unable to reach family today, though the family medicine service updated the family and they press on for aggressive measures. unlikely to have any meaningful recovery given large stroke superimposed on baseline poor functionality. 01/18: Remains lethargic but opens eyes to painful stimuli. Involuntarily grasped with the right hand. Left upper extremity is flaccid but withdraws bilateral lower extremity. Dilantin level was elevated on 01/16/2016 will recheck level today and tomorrow morning. Discussed in detail with daughter Kaci 01/19: Neuro exam remains unchanged no improvement in encephalopathy. Dilantin level remains elevated at 24.5, albumin corrected will be much higher. Updated daughter Kaci, she will meet with palliative care today 01/20: Patient is still obtunded encephalopathy. Dilantin level further down 20.3. No seizures. Family at this time wants to continue aggressive care. Patient remains hemodynamically more stable. Urine culture growing gram- negative rods started on Rocephin 01/21: Neuro status remains unchanged remains obtunded encephalopathic. Dilantin level improved to 16.2 today. Urine culture growing ESBL E. coli. Rocephin was discontinued, started on meropenem 1 g IV every 8 hours 01/22: Patient remains intubated remains completely off all sedation for several days. Dilantin level down to 14.2 uncorrected. Slightly more responsive to painful stimuli, continues to have partial eye opening. 01/23: No significant improvement in neuro exam though opening eyes more with stimulation. Dilantin level coming down today 12.8. Albumin is 1.5 corrected level is about 30 mcg/ml. daughter wants to wait a few more days prior to deciding on trach versus withdrawal Objective Vital Signs / I&O: Vital Signs 01/22/18 14:00 01/22/18 15:38 01/22/18 16:00 Temperature 99.0 F Pulse Rate 72 78 Respiratory Rate 14 Blood Pressure 122/56 L Pulse Oximetry 100 100 01/22/18 18:00 01/22/18 20:00 01/22/18 21:05 Temperature 98.6 F Pulse Rate 74 74 Respiratory Rate 14 14 Blood Pressure 125/64 Pulse Oximetry 100 100 01/22/18 22:00 01/22/18 23:34 01/23/18 00:00 Temperature 99.3 F Pulse Rate 80 73 Respiratory Rate 14 15 Blood Pressure 110/58 L Pulse Oximetry 100 100 01/23/18 02:00 01/23/18 03:49 01/23/18 04:00 Temperature 98.8 F Pulse Rate 73 73 Respiratory Rate 16 14 Blood Pressure 153/64 H Pulse Oximetry 100 100 01/23/18 06:00 01/23/18 09:18 Temperature Pulse Rate 81 Respiratory Rate 17 Blood Pressure Pulse Oximetry Intake & Output 01/22/18 01/23/18 01/23/18 18:59 06:59 18:59 Intake Total 645 / 645 662 / 662 Output Total 1300 / 1300 450 / 450 Balance -655 / -655 212 / 212 Weight 72.2 kg Intake: IV 100 / 100 200 / 200 Merrem Inj 1,000 MG In NS Inj 100 / 100 200 / 200 100 ML @ 200 mls/hr IV.SIG Q8H CARMEN Rx#:[id number] Oral 0 / 0 0 / 0 Tube Feeding 365 / 365 312 / 312 Water Bolus Amount 180 / 180 150 / 150 Output: Urine 1300 / 1300 Urine Amount (Catheter) 450 / 450 Indwelling Temp Sensing 450 / 450 Catheter Other: Date of Last Bowel Movement 01/22/18 01/23/18 # Bowel Movements 2 # Incontinent Bowel Movements 2 2 Result Diagrams: 01/23/18 06:00 01/23/18 06:00 Objective Remarks: GEN: frail elderly female, lying in bed, partial eye opening to painful stimuli HEENT: pupils are 2mm, equal, reactive. mucous membranes moist. Orotracheally intubated Neck: no jvd. trachea midline. Chest: intubated. peep 5. equal chest rise. Failed CPAP due to apnea CV: normal rate, regular rhythm. GI: soft, nontender, nondistended. no guarding. EXT: cool, poorly perfused. 1+ edema. Neuro: Partial eye opening to painful stimuli. Spontaneously moving right upper extremity. Withdraws bilateral lower extremity due to pain. Left upper extremity is flaccid. +cough. +gag. Do not follow commands, remains encephalopathy Assessment and Plan - Assessment and Plan Plan: Assessment: 87yF with acute CVA and now s/p cardiac arrest overlying significant comorbid medical conditions. Poor prognosis. unlikely to have any long-term functional recovery. Discussed with daughter Kaci. 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 Carolina, overall prognosis poor per Dr. Carolina -Sepsis and Dilantin toxicity may be contributing to altered mental status Cardiogenic shock -resolved s/p PEA arrest -Remains off all pressors -Monitor heart rate blood pressure closely Seizure disorder Dilantin toxicity -Dilantin level supratherapeutic. Holding Dilantin, uncorrected Dilantin level is 12.8, albumin corrected level is 32. Continue daily checks -Further management per neurology. -EEG ordered by primary service-shows moderate encephalopathy UTI /ESBL E. coli -Rocephin 01/07-01/11 -Urine culture ESBL E. coli, restarted Rocephin 01/20/2018, DCd and start Meropenem 01/21/18 -Started on Fluconazole 01/12 (to continue for a total of 14 days) Clostridium difficile diarrhea -Vancomycin per G-tube 125 mg 4 times daily completed 01/18. Repeat C. difficile test due to diarrhea, negative -Lactobacillus given to assist with gut rod DVT GI prophylaxis -Teds SCDs -Subcu heparin -Pepcid Overall impression: Critically ill following a cardiac arrest. Her neurologic status is unstable as well and her overall prognosis is guarded. Discussed with daughter Kaci extensively. I recommended against tracheostomy and PEG tube however we will proceed according to family wishes. Daughter Kaci wants to wait over the weekend to see any neuro improvement, she does not want to place a tracheostomy if there is no neurological improvement. Palliative care following. Level 3 Code Status: Full
[2018-01-24 03:11] LABS: Hematocrit 30.7 % (35.0-46.0); Hemoglobin 10.1 gm/dL (11.6-15.3); Mean Corpuscular HGB Conc 33.1 % (32.0-36.0); Mean Corpuscular Hemoglobin 30.3 pg (27.0-34.0); Mean Corpuscular Volume 91.6 fL (80.0-100.0); Mean Platelet Volume 8.9 fL (7.0-11.0); Platelet Count 126 th/mm3 (150-450); Red Blood Count 3.35 mil/mm3 (4.00-5.30); Red Cell Distribution Width 15.4 % (11.6-17.2); White Blood Count 4.9 th/mm3 (4.0-11.0)
[2018-01-24 03:15] LABS: Anion Gap 5 meq/L (5-15); Blood Urea Nitrogen 13 mg/dL (7-18); Calcium 7.7 mg/dL (8.5-10.1); Carbon Dioxide 31.4 meq/L (21.0-32.0); Chloride 105 meq/L (98-107); Glomerular Filtration Rate Greater Than 89 mL/min (>89); Glucose,Random 141 mg/dL (74-106); Potassium 4.1 meq/L (3.5-5.1); Sodium 141 meq/L (136-145)
[2018-01-24 03:16] LABS: Phenytoin (Dilantin) 13.3 mcg/mL (10.0-20.0)
--- NOTE | 2018-01-24 07:41 | P.PNCC ---
Subjective Subjective Remarks/Hospital Course: 87 year old female admitted initially for evaluation of a witnessed seizure. The patient is [facility] resident with multiple medical issues, including history of seizures on Keppra. Per chart review her baseline is alert, confused , and often combative at a [facility]. She is verbal. She is able to feed herself; she consumes a pureed, nectar-thick diet. She spends most of her time in chair, with limited mobility. 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 The patient's daughter is a ICU nurse at outside of [facility] , who is requesting to continue aggressive management. Today early in the morning the patient developed respiratory arrest flowed by a cardiac arrest requiring multiple cycles of CPR and epinephrine injections. The initial rhythm was PEA versus asystolic. After approximately 15 minutes of CPR the patient regained spontaneous circulation. She was intubated just prior to arrest, and later central line and A-line was used due to hemodynamic instability. The patient's daughter was called during the CPR and again requested full code and aggressive management. 01/16 1000 hrs: Gas exchange now acceptable and pH problems have been corrected with ventilator manipulations. The etiology of the rest appears to have been a hypercapnic respiratory acidosis superimposed on a large dominant hemisphere acute stroke. Chest x-ray reviewed tubes and lines in good position. Cardiac rhythm appears to be atrial paced. The QRS is wide and I suspect within there somewhere is a sequential ventricular spike although I do not see it on the monitor. Potassium was elevated at 5.8 we will follow that closely. At present she is requiring 8 mcg/min of epinephrine and urine output has been about 40 mL's. Patient remains critically ill. 01/17: no improvements. severely encephalopathic. remains on epinephrine, although digits are now dusky and our vasopressors may be causing more harm than any improvements at this point. will be forced to use ivf for perfusion instead of epinephrine. I was unable to reach family today, though the family medicine service updated the family and they press on for aggressive measures. unlikely to have any meaningful recovery given large stroke superimposed on baseline poor functionality. 01/18: Remains lethargic but opens eyes to painful stimuli. Involuntarily grasped with the right hand. Left upper extremity is flaccid but withdraws bilateral lower extremity. Dilantin level was elevated on 01/16/2016 will recheck level today and tomorrow morning. Discussed in detail with daughter Kaci 01/19: Neuro exam remains unchanged no improvement in encephalopathy. Dilantin level remains elevated at 24.5, albumin corrected will be much higher. Updated daughter Kaci, she will meet with palliative care today 01/20: Patient is still obtunded encephalopathy. Dilantin level further down 20.3. No seizures. Family at this time wants to continue aggressive care. Patient remains hemodynamically more stable. Urine culture growing gram- negative rods started on Rocephin 01/21: Neuro status remains unchanged remains obtunded encephalopathic. Dilantin level improved to 16.2 today. Urine culture growing ESBL E. coli. Rocephin was discontinued, started on meropenem 1 g IV every 8 hours 01/22: Patient remains intubated remains completely off all sedation for several days. Dilantin level down to 14.2 uncorrected. Slightly more responsive to painful stimuli, continues to have partial eye opening. 01/23: No significant improvement in neuro exam though opening eyes more with stimulation. Dilantin level coming down today 12.8. Albumin is 1.5 corrected level is about 30 mcg/ml. daughter wants to wait a few more days prior to deciding on trach versus withdrawal. 01/24: No real change in neurologic exam. She does move her right arm spontaneously. Her eyes open but I cannot seem to convince myself that she tracks. Blood pressure well controlled. Unable to wean from ventilator. Objective Vital Signs / I&O: Vital Signs 01/23/18 08:00 01/23/18 09:18 01/23/18 10:00 Temperature 98.4 F Pulse Rate 77 79 Respiratory Rate 14 17 Blood Pressure 141/65 H Pulse Oximetry 100 01/23/18 12:00 01/23/18 12:29 01/23/18 14:00 Temperature 99.3 F Pulse Rate 82 77 Respiratory Rate 14 29 H Blood Pressure 152/68 H Pulse Oximetry 100 100 01/23/18 16:00 01/23/18 18:00 01/23/18 20:00 Temperature 98.4 F 99.0 F Pulse Rate 68 79 78 Respiratory Rate 14 14 Blood Pressure 125/57 L 138/73 Pulse Oximetry 100 100 01/23/18 20:01 01/23/18 22:00 07/23/18 00:00 Temperature 99.3 F Pulse Rate 78 83 Respiratory Rate 17 14 Blood Pressure 155/79 H Pulse Oximetry 100 100 01/24/18 01:38 01/24/18 02:00 01/24/18 04:00 Temperature Pulse Rate 80 75 Respiratory Rate 14 Blood Pressure Pulse Oximetry 100 01/24/18 04:57 Temperature Pulse Rate Respiratory Rate 14 Blood Pressure Pulse Oximetry 100 Intake & Output 01/23/18 01/24/18 01/24/18 18:59 06:59 18:59 Intake Total 549 / 549 100 / 100 Output Total 1550 / 1550 Balance -1001 / -1001 100 / 100 Intake: IV 100 / 100 100 / 100 Merrem Inj 1,000 MG In NS Inj 100 / 100 100 / 100 100 ML @ 200 mls/hr IV.SIG Q8H CARMEN Rx#:[id number] Oral 0 / 0 Tube Feeding 269 / 269 Water Bolus Amount 180 / 180 Output: Urine 1550 / 1550 Other: Date of Last Bowel Movement 01/23/18 01/23/18 # Bowel Movements 4 # Incontinent Bowel Movements 4 Result Diagrams: 01/24/18 02:45 01/24/18 02:45 Objective Remarks: GEN: frail elderly female, lying in bed, partial eye opening to painful stimuli HEENT: pupils are 2mm, equal, reactive. mucous membranes moist. Orotracheally intubated Neck: no jvd. trachea midline. Chest: intubated. Ventilator dependent. Equal chest rise. Failed CPAP due to apnea CV: normal rate, regular rhythm. No JVD. GI: soft, nontender, nondistended. no guarding. EXT: Tepid, poorly perfused. 1+ edema. Neuro: Partial eye opening to painful stimuli. Spontaneously moving right upper extremity. Withdraws bilateral lower extremities to noxious stimulation. Left upper extremity is flaccid. +cough. +gag. Does not follow commands, remains encephalopathy Assessment and Plan - Assessment and Plan Plan: Assessment: 87yF with acute CVA and now s/p cardiac arrest overlying significant comorbid medical conditions. Poor prognosis. unlikely to have any long-term functional recovery. Discussed with daughter Kaci. Now with ESBL E Coli UTI. 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 Carolina, overall prognosis poor per Dr. Carolina -Sepsis and Dilantin toxicity may be contributing to altered mental status Cardiogenic shock -resolved s/p PEA arrest -Remains off all pressors -Monitor heart rate blood pressure closely Seizure disorder Dilantin toxicity -Dilantin level supratherapeutic. Holding Dilantin, uncorrected Dilantin level is 12.8, albumin corrected level is 32. Continue daily checks -Further management per neurology. -EEG ordered by primary service-shows moderate encephalopathy UTI /ESBL E. coli -Rocephin 01/07-01/11 -Urine culture ESBL E. coli, restarted Rocephin 01/20/2018, DCd and start Meropenem 01/21/18 -Started on Fluconazole 01/12 (to continue for a total of 14 days) Clostridium difficile diarrhea -Vancomycin per G-tube 125 mg 4 times daily completed 01/18. Repeat C. difficile test due to diarrhea, negative -Lactobacillus given to assist with gut rod DVT GI prophylaxis -Teds SCDs -Subcu heparin -Pepcid Overall impression: Critically ill following a cardiac arrest. Her neurologic status is severely impaired as well and her overall prognosis is guarded. Discussed with daniel Clemons extensively. I recommended against tracheostomy and PEG tube however we will proceed according to family wishes. Daughter Kaci wants to wait over the weekend to see any neuro improvement, she does not want to place a tracheostomy if there is no neurological improvement. Palliative care following. The chance for any significant meaningful recovery approaches zero.
[2018-01-24] MEDS: Divalproex 125 MG Sprinkles Capsule G-TUBE SCH ×2 (09:26→20:24)
[2018-01-24] MEDS: Aspirin 325 MG Tablet G-TUBE SCH (09:27)
[2018-01-24] MEDS: Potassium Chloride 20 MEQ Pwd Pkt G-TUBE SCH (09:28)
[2018-01-24] MEDS: Pantoprazole Inj 40 MG Vial IV.PUSH SCH (10:27)
[2018-01-24] MEDS: Collagenase Oint 30 GM Tube TOPICAL SCH (14:27)
--- NOTE | 2018-01-24 15:47 | P.PNPAL ---
Reason for Visit Reason for visit: a. To assist with evaluation and management of symptoms including: encephalopathy, dyspnea. b. To assist medical decision maker(s) with: better understanding of current medical conditions; weighing benefits/burdens of medical treatment options; making medical treatment decisions. . Subjective Subjective/Interval History: Patient is an 87 year old female [facility] resident who presented to [facility] on 12/18/2017 with altered mental status after a witnessed seizure. Patient seen and assessed in room 1314. No family at bedside. Patient opens eyes briefly to voice, she does not track. Withdraws to pain bilateral LEs. No movement noted left UE. Patient tolerating tube feeding. Recent lab work reviewed: WBC: 4.9, hemoglobin 10.1, hematocrit 30.7, platelets 126, sodium 141, potassium 4.1, glucose 141, calcium 7.7, BUN 5, creatinine 0.34 and GFR > 89. Dilantin level remains elevated at 13.3. CT head stable appearance to the right MCA infarction, no evidence of acute blood products or mass effect. No obvious signs of pain or anxiety during my visit. Family/Friend Interactions: Left message for daughter/ Kaci ELLIS to retrun call regarding trach decision. I know she is working today and will likely call later this evening. Advance Directives Health Care Surrogate: Copy in medical record Durable Power of Truck Jumper: Copy in medical record Advance Directives Date on File: 12/20/17 Health Care Surrogate Name and Number: Kaci Koenig (primary):[phone] Alt HCS : Connie Hector (alternate): Significant change in goals:: Left message for daughter/ CALEB Clemons to discuss tracheostomy decision. Awaiting return call. Objective Vital Signs: Vital Signs 01/23/18 16:00 01/23/18 18:00 01/23/18 20:00 Temperature 98.4 F 99.0 F Pulse Rate 68 79 78 Respiratory Rate 14 14 Blood Pressure 125/57 L 138/73 Pulse Oximetry 100 100 01/23/18 20:01 01/23/18 22:00 01/24/18 00:00 Temperature 99.3 F Pulse Rate 78 83 Respiratory Rate 17 14 Blood Pressure 155/79 H Pulse Oximetry 100 100 01/24/18 01:38 01/24/18 02:00 01/24/18 04:00 Temperature 99.5 F Pulse Rate 80 75 Respiratory Rate 14 16 Blood Pressure 144/65 H Pulse Oximetry 100 100 01/24/18 04:57 01/24/18 06:00 01/24/18 08:31 Temperature Pulse Rate 82 Respiratory Rate 14 19 Blood Pressure Pulse Oximetry 100 100 01/24/18 11:10 Temperature Pulse Rate Respiratory Rate 15 Blood Pressure Pulse Oximetry 100 Intake & Output 01/23/18 01/24/18 01/24/18 18:59 06:59 18:59 Intake Total 549 / 549 628 / 628 Output Total 1550 / 1550 450 / 450 Balance -1001 / -1001 178 / 178 Weight 69.8 kg Intake: IV 100 / 100 200 / 200 Merrem Inj 1,000 MG In NS Inj 100 / 100 200 / 200 100 ML @ 200 mls/hr IV.SIG Q8H CARMEN Rx#:[id number] Oral 0 / 0 Tube Feeding 269 / 269 368 / 368 Water Bolus Amount 180 / 180 60 / 60 Output: Urine 1550 / 1550 Urine Amount (Catheter) 450 / 450 Indwelling Temp Sensing 450 / 450 Catheter Other: Date of Last Bowel Movement 01/23/18 01/24/18 # Bowel Movements 4 1 # Incontinent Bowel Movements 4 1 Physical Exam: CONSTITUTIONAL/GENERAL: This is a frail, elderly female in no acute distress TUBES/LINES/DRAINS: ETT, PIV, PEG tube SKIN: Skin is thin and fragile. Skin temperature appropriate. Not diaphoretic. EYES: Pupils equal and round. CARDIOVASCULAR: RRR RESPIRATORY/CHEST: Symmetric, unlabored respirations on vent. Few scattered coarse breath sounds. GASTROINTESTINAL: Abdomen soft, nondistended. No guarding. Bowel sounds present. GENITOURINARY: Without palpable bladder distension. MUSCULOSKELETAL: Extremities with edema. NEUROLOGICAL: Opens eyes briefly to voice, does not track or follow commands. Withdraws to painful stimuli bilateral lower extremities. No purposeful movements noted. Left upper extremity flaccid. PSYCHIATRIC: Opens eyes briefly to voice . Diagnostic Tests Laboratory: Laboratory Results - last 72 hr 01/22/18 01/22/18 01/23/18 06:00 06:00 06:00 WBC 4.1 4.1 RBC 3.40 L 3.30 L Hgb 10.4 L 9.9 L Hct 31.2 L 30.3 L MCV 91.8 91.9 MCH 30.7 30.1 MCHC 33.5 32.8 RDW 16.4 16.0 Plt Count 146 L 121 L MPV 8.6 9.0 Sodium 142 Potassium 4.3 D Chloride 106 Carbon Dioxide 28.8 Anion Gap 7 BUN 17 Creatinine 0.42 L Estimated GFR Greater than 89 Random Glucose 157 H Calcium 7.8 L Phenytoin 14.2 01/23/18 01/24/18 01/24/18 06:00 02:45 02:45 WBC 4.9 RBC 3.35 L Hgb 10.1 L Hct 30.7 L MCV 91.6 MCH 30.3 MCHC 33.1 RDW 15.4 Plt Count 126 L MPV 8.9 Sodium 141 141 Potassium 4.2 4.1 Chloride 106 105 Carbon Dioxide 30.6 31.4 Anion Gap 4 L 5 BUN 15 13 Creatinine 0.47 L 0.34 L Estimated GFR Greater than 89 Greater than 89 Random Glucose 139 H 141 H Calcium 7.7 L 7.7 L Phenytoin 12.8 13.3 Result Diagrams: 01/24/18 02:45 01/24/18 02:45 Imaging: Chest X-Ray 01/17/18 04:00 CONCLUSION: Cardiomegaly with basilar airspace consolidation and small effusions similar to January 16. Head CT 01/19/18 00:00 CONCLUSION: 1. Stable appearance to the right MCA infarction; no evidence of acute blood products or mass effect. Procedures: * PEG tube Assessment and Plan Pertinent Non-Medical Issues: Psychosocial: Patient is . She has a high school education but is now retired. Patient has 6 children. Patient currently resides at [facility] in [place]. Spiritual: Muslim mira Legal: A healthcare surrogate designation form was completed on 05/06/2017 and designates Kaci Koenig as the primary healthcare surrogate decision-maker. Connie Hector is designated as the alternate healthcare surrogate decision maker. Ethical issues impacting care: No known ethical issues impacting care at this time. Important Contacts: * Kaci Koenig - Health Care Surrogate: [phone] (C) * Connie Jung - Power of Truck Jumper/alternate [facility]: [phone] (C) * Alexia Kahn - Son: [phone] (C) or [phone] (H) Prognosis: Patient is a frail 87-year-old female with a complex medical history who was admitted following a witnessed seizure status post PEG tube placement. Unfortunately, placement of a PEG tube will not improve this patient's quality of life or functional status. Given patient's advanced age, multiple comorbid conditions in addition to her acute decline, she will remain high risk for ongoing setbacks and complications. Code Status: Full Code Plan: * Decision-making: Patient does not have insight or judgment related to her current medical conditions; it is unlikely that she will regain capacity. A healthcare surrogate designation form was completed on 05/06/2017 and designates Kaci Koenig as the primary healthcare surrogate decision-maker. Connie Krunal is designated as the alternate healthcare surrogate decision maker. * FULL CODE * Left message for daughter/ HCS, Kaci to return call regarding trach decision. I know she is working today and will likely call later this evening. * Symptom management: = Encephalopathy: Multifactoral. Contributing factors may metabolic encephalopathy, seizures, CVA, dementia. Patient admitted for evaluation and management of seizures vs. CVA. Patient has a history of previous CVA 2 with residual left-sided weakness. Dilantin level now 13.3. = Dysphasia: Patient has failed multiple swallow studies. Status post PEG tube placement on 12/30/2017. = Dyspnea: on [facility] vent, will likely need trach if family desires continued aggressive care. * Per case management note, patient does not have any more Medicare days and therefore she cannot be transferred to a facility in [place]. Patient has [place] [facility]; she was previously residing at [facility] and has been accepted back to that facility. Family considering options; they are willing to send the patient back to [facility] if there is no other alternative. Attestation Attestation: To help prompt me to consider important information that might be impacting today's encounter and assessment, information from prior notes written by myself or my colleagues may have been "brought forward" into today's note. My signature on this note, however, is an attestation that I personally performed the exam, history, and/or decision-making noted today, and, unless otherwise indicated, the interactions with patient, family, and staff as well as the review of records all occurred today. I also attest that the listed assessment and stated plan reflect my best clinical judgment today based on the combination of historical information, prior notes, and today's exam/ interactions. When time spent is documented, it refers only to time spent today by the signer, or if indicated, combined time spent today by collaborating physician/nurse practitioner.
[2018-01-25 05:58] LABS: Anion Gap 4 meq/L (5-15); Blood Urea Nitrogen 13 mg/dL (7-18); Calcium 7.7 mg/dL (8.5-10.1); Carbon Dioxide 31.8 meq/L (21.0-32.0); Chloride 106 meq/L (98-107); Glomerular Filtration Rate Greater Than 89 mL/min (>89); Glucose,Random 163 mg/dL (74-106); Potassium 4.3 meq/L (3.5-5.1); Sodium 142 meq/L (136-145)
[2018-01-25] MEDS: Aspirin 325 MG Tablet G-TUBE SCH (10:18)
[2018-01-25] MEDS: Divalproex 125 MG Sprinkles Capsule G-TUBE SCH ×2 (10:19→21:01)
[2018-01-25] MEDS: Collagenase Oint 30 GM Tube TOPICAL SCH (10:20)
[2018-01-25] MEDS: Pantoprazole Inj 40 MG Vial IV.PUSH SCH (10:43)
--- NOTE | 2018-01-25 10:58 | P.PNCC ---
Subjective Subjective Remarks/Hospital Course: 87 year old female admitted initially for evaluation of a witnessed seizure. The patient is senior living resident with multiple medical issues, including history of seizures on Keppra. Per chart review her baseline is alert, confused , and often combative at a senior living. She is verbal. She is able to feed herself; she consumes a pureed, nectar-thick diet. She spends most of her time in chair, with limited mobility. 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 The patient's daughter is a ICU nurse at outside of pending sale to [facility] facility , who is requesting to continue aggressive management. Today early in the morning the patient developed respiratory arrest flowed by a cardiac arrest requiring multiple cycles of CPR and epinephrine injections. The initial rhythm was PEA versus asystolic. After approximately 15 minutes of CPR the patient regained spontaneous circulation. She was intubated just prior to arrest, and later central line and A-line was used due to hemodynamic instability. The patient's daughter was called during the CPR and again requested full code and aggressive management. 01/16 1000 hrs: Gas exchange now acceptable and pH problems have been corrected with ventilator manipulations. The etiology of the rest appears to have been a hypercapnic respiratory acidosis superimposed on a large dominant hemisphere acute stroke. Chest x-ray reviewed tubes and lines in good position. Cardiac rhythm appears to be atrial paced. The QRS is wide and I suspect within there somewhere is a sequential ventricular spike although I do not see it on the monitor. Potassium was elevated at 5.8 we will follow that closely. At present she is requiring 8 mcg/min of epinephrine and urine output has been about 40 mL's. Patient remains critically ill. 01/17: no improvements. severely encephalopathic. remains on epinephrine, although digits are now dusky and our vasopressors may be causing more harm than any improvements at this point. will be forced to use ivf for perfusion instead of epinephrine. I was unable to reach family today, though the family medicine service updated the family and they press on for aggressive measures. unlikely to have any meaningful recovery given large stroke superimposed on baseline poor functionality. 01/18: Remains lethargic but opens eyes to painful stimuli. Involuntarily grasped with the right hand. Left upper extremity is flaccid but withdraws bilateral lower extremity. Dilantin level was elevated on 01/16/2016 will recheck level today and tomorrow morning. Discussed in detail with daughter Kaci 01/19: Neuro exam remains unchanged no improvement in encephalopathy. Dilantin level remains elevated at 24.5, albumin corrected will be much higher. Updated daughter Kaci, she will meet with palliative care today 01/20: Patient is still obtunded encephalopathy. Dilantin level further down 20.3. No seizures. Family at this time wants to continue aggressive care. Patient remains hemodynamically more stable. Urine culture growing gram- negative rods started on Rocephin 01/21: Neuro status remains unchanged remains obtunded encephalopathic. Dilantin level improved to 16.2 today. Urine culture growing ESBL E. coli. Rocephin was discontinued, started on meropenem 1 g IV every 8 hours 01/22: Patient remains intubated remains completely off all sedation for several days. Dilantin level down to 14.2 uncorrected. Slightly more responsive to painful stimuli, continues to have partial eye opening. 01/23: No significant improvement in neuro exam though opening eyes more with stimulation. Dilantin level coming down today 12.8. Albumin is 1.5 corrected level is about 30 mcg/ml. daughter wants to wait a few more days prior to deciding on trach versus withdrawal. 01/24: No real change in neurologic exam. She does move her right arm spontaneously. Her eyes open but I cannot seem to convince myself that she tracks. Blood pressure well controlled. Unable to wean from ventilator. 01/25: No improvement in neurologic exam. She fails CPAP trials when breathing spontaneously and will likely need a tracheostomy. I will discuss with the palliative care service whether the family would like to pursue the trach and PEG route. Objective Vital Signs / I&O: Vital Signs 01/24/18 11:10 01/24/18 12:00 01/24/18 14:00 Temperature 99.7 F H 99.7 F H Pulse Rate 87 87 Respiratory Rate 15 19 19 Blood Pressure 140/63 140/63 Pulse Oximetry 100 100 100 01/24/18 15:28 01/24/18 16:00 01/24/18 18:00 Temperature 99.7 F H 99.7 F H Pulse Rate 87 87 Respiratory Rate 16 19 19 Blood Pressure 140/63 140/63 Pulse Oximetry 100 100 100 01/24/18 19:55 01/24/18 20:00 01/24/18 22:00 Temperature 99.0 F Pulse Rate 93 H 87 Respiratory Rate 22 16 Blood Pressure 126/71 Pulse Oximetry 100 100 01/25/18 00:00 01/25/18 00:41 01/25/18 02:00 Temperature 99.0 F Pulse Rate 78 81 Respiratory Rate 16 22 Blood Pressure 139/72 Pulse Oximetry 100 100 01/25/18 04:00 01/25/18 04:30 01/25/18 06:00 Temperature 98.4 F Pulse Rate 82 82 Respiratory Rate 14 14 Blood Pressure 125/63 Pulse Oximetry 100 100 01/25/18 08:00 01/25/18 08:25 Temperature 98.6 F Pulse Rate 85 Respiratory Rate 14 23 Blood Pressure 125/78 Pulse Oximetry 100 100 Intake & Output 01/24/18 01/25/18 01/25/18 18:59 06:59 18:59 Intake Total 743 / 743 965 / 965 Output Total 1000 / 1000 395 / 395 Balance -257 / -257 570 / 570 Weight 69.5 kg Intake: IV 100 / 100 200 / 200 Merrem Inj 1,000 MG In NS Inj 100 / 100 200 / 200 100 ML @ 200 mls/hr IV.SIG Q8H CARMEN Rx#:[id number] Oral 0 / 0 Tube Feeding 583 / 583 645 / 645 Tube Irrigant 60 / 60 Water Bolus Amount 120 / 120 Output: Urine 1000 / 1000 Stool 20 / 20 Urine Amount (Catheter) 375 / 375 Indwelling Temp Sensing 375 / 375 Catheter Other: Date of Last Bowel Movement 01/23/18 01/25/18 01/25/18 # Bowel Movements 3 3 # Incontinent Bowel Movements 1 Result Diagrams: 01/24/18 02:45 01/25/18 05:20 Objective Remarks: GEN: frail elderly female, lying in bed, partial eye opening to noxious stimuli HEENT: pupils are 3 mm, equal, reactive. mucous membranes moist. Neck: trachea midline. Orally intubated. Chest: intubated. Ventilator dependent. Equal chest rise. Failed CPAP again due to apnea episodes today. CV: normal rate, regular rhythm. No JVD. GI: soft, nontender, nondistended. no guarding. EXT: Tepid, poorly perfused. 1+ edema. Neuro: Partial eye opening to painful stimuli. Spontaneously moving right upper extremity. Withdraws bilateral lower extremities to noxious stimulation. Left upper extremity is flaccid. +cough. +gag. Does not follow commands, remains encephalopathy Assessment and Plan - Assessment and Plan Plan: Assessment: 87yF with acute CVA and now s/p cardiac arrest overlying significant comorbid medical conditions. Poor prognosis. unlikely to have any long-term functional recovery. Discussed with daughter Kaci. Now with ESBL E Coli UTI. 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 Carolina, overall prognosis poor per Dr. Carolina -Sepsis and Dilantin toxicity may be contributing to altered mental status Cardiogenic shock -resolved s/p PEA arrest -Remains off all pressors -Monitor heart rate blood pressure closely Seizure disorder Dilantin toxicity -Dilantin level supratherapeutic. Holding Dilantin, uncorrected Dilantin level is 12.8, albumin corrected level is 32. Continue daily checks -Further management per neurology. -EEG ordered by primary service-shows moderate encephalopathy UTI /ESBL E. coli -Rocephin 01/07-01/11 -Urine culture ESBL E. coli, restarted Rocephin 01/20/2018, DCd and start Meropenem 01/21/18 -Started on Fluconazole 01/12 (to continue for a total of 14 days) Clostridium difficile diarrhea -Vancomycin per G-tube 125 mg 4 times daily completed 01/18. Repeat C. difficile test due to diarrhea, negative -Lactobacillus given to assist with gut rod DVT GI prophylaxis -Teds SCDs -Subcu heparin -Pepcid Overall impression: Critically ill following a cardiac arrest. Her neurologic status is severely impaired as is her overall prognosis, Dr. Oneill discussed with daniel Clemons extensively. We recommended against tracheostomy and PEG tube however we will proceed according to family wishes. Daughter Kaci wants to wait over the weekend to see any neuro improvement, she does not want to place a tracheostomy if there is no neurological improvement. Palliative care is following. The chance for any significant meaningful recovery approaches zero.
[2018-01-25] MEDS: Potassium Chloride 20 MEQ Pwd Pkt G-TUBE SCH (11:43)
--- NOTE | 2018-01-25 16:54 | P.PNPAL ---
Left daughter/ HCS, Kaci a message to provide medical update, to see if she has returned to town and to determine if she and her siblings have made a decision regarding tracheostomy. I left message for her to return my call. Awaiting return call.
--- NOTE | 2018-01-25 17:32 | P.PNCA ---
<Autumn Hoyt N - Last Filed: 01/25/18 17:20> Subjective Interval history: Pt intubated on ventilator unresponsive. SR with PVC's Physical Exam Vital signs: Vital Signs 01/24/18 18:00 01/24/18 19:55 01/24/18 20:00 Temperature 99.7 F H 99.0 F Pulse Rate 87 93 H Respiratory Rate 19 22 16 Blood Pressure 140/63 126/71 Pulse Oximetry 100 100 100 01/24/18 22:00 01/25/18 00:00 01/25/18 00:41 Temperature 99.0 F Pulse Rate 87 78 Respiratory Rate 16 22 Blood Pressure 139/72 Pulse Oximetry 100 100 01/25/18 02:00 01/25/18 04:00 01/25/18 04:30 Temperature 98.4 F Pulse Rate 81 82 Respiratory Rate 14 14 Blood Pressure 125/63 Pulse Oximetry 100 100 01/25/18 06:00 01/25/18 08:00 01/25/18 08:25 Temperature 98.6 F Pulse Rate 82 85 Respiratory Rate 14 23 Blood Pressure 125/78 Pulse Oximetry 100 100 01/25/18 10:00 01/25/18 11:17 01/25/18 12:00 Temperature 98.2 F Pulse Rate 94 H 85 Respiratory Rate 20 16 Blood Pressure 118/71 Pulse Oximetry 100 100 01/25/18 14:00 01/25/18 15:58 Temperature Pulse Rate 80 Respiratory Rate 19 Blood Pressure Pulse Oximetry 100 Intake & Output 01/24/18 01/25/18 01/25/18 18:59 06:59 18:59 Intake Total 743 / 743 965 / 965 Output Total 1000 / 1000 395 / 395 Balance -257 / -257 570 / 570 Weight 69.5 kg Intake: IV 100 / 100 200 / 200 Merrem Inj 1,000 MG In NS Inj 100 / 100 200 / 200 100 ML @ 200 mls/hr IV.SIG Q8H [facility] Rx#:[id number] Oral 0 / 0 Tube Feeding 583 / 583 645 / 645 Tube Irrigant 60 / 60 Water Bolus Amount 120 / 120 Output: Urine 1000 / 1000 Stool 20 / 20 Urine Amount (Catheter) 375 / 375 Indwelling Temp Sensing 375 / 375 Catheter Other: Date of Last Bowel Movement 01/23/18 01/25/18 01/25/18 # Bowel Movements 3 3 # Incontinent Bowel Movements 1 - Constitutional no acute distress - Routine Respiratory Exam Present: patient mechanically ventilated - Routine Cardiovascular Exam Present: RRR. Absent: murmur, gallop, rubs - Routine Abdominal Exam Present: soft - Routine Extremities Exam Present: edema, pulses intact - Detailed Neurological Exam: Coma Scale Eye Opening: None Verbal Response: None - Urinary Catheter Management Indwelling Temp Sensing Catheter Cath placed during this visit: yes Reason for continuing: Severe pressure ulcer/wound Insertion date: 01/16/18 Insertion time: 04:00 Assessment and Plan - Assessment (1) Cardiac arrest Code(s): I46.9 - Cardiac arrest, cause unspecified Status: Acute (2) Altered mental status, unspecified Code(s): R41.82 - Altered mental status, unspecified Status: Acute (3) Seizure Code(s): R56.9 - Unspecified convulsions Status: Acute (4) Palliative care patient Code(s): Z51.5 - Encounter for palliative care Status: Acute (5) History of CVA (cerebrovascular accident) Code(s): Z86.73 - Personal history of transient ischemic attack (TIA), and cerebral infarction without residual deficits Status: Chronic (6) Pneumonia Code(s): J18.9 - Pneumonia, unspecified organism Status: Acute (7) GERD (gastroesophageal reflux disease) Code(s): K21.9 - Gastro-esophageal reflux disease without esophagitis Status: Chronic - Plan Pt is intubated and unresponsive s/p cardiac arrest. Pt currently on Levophed for BP support. SR with PVC on tele. LUE is flaccid. Continue current ICU treatment plan. Wean ventilator as tolerated. Prognosis is guarded and palliative care is involved. Continue current cardiac treatment plan. <Jamshid De La O - Last Filed: 01/25/18 17:59> Physical Exam Vital signs: Vital Signs 01/24/18 18:00 01/24/18 19:55 01/24/18 20:00 Temperature 99.7 F H 99.0 F Pulse Rate 87 93 H Respiratory Rate 19 22 16 Blood Pressure 140/63 126/71 Pulse Oximetry 100 100 100 01/24/18 22:00 01/25/18 00:00 01/25/18 00:41 Temperature 99.0 F Pulse Rate 87 78 Respiratory Rate 16 22 Blood Pressure 139/72 Pulse Oximetry 100 100 01/25/18 02:00 01/25/18 04:00 01/25/18 04:30 Temperature 98.4 F Pulse Rate 81 82 Respiratory Rate 14 14 Blood Pressure 125/63 Pulse Oximetry 100 100 01/25/18 06:00 01/25/18 08:00 01/25/18 08:25 Temperature 98.6 F Pulse Rate 82 85 Respiratory Rate 14 23 Blood Pressure 125/78 Pulse Oximetry 100 100 01/25/18 10:00 01/25/18 11:17 01/25/18 12:00 Temperature 98.2 F Pulse Rate 94 H 85 Respiratory Rate 20 16 Blood Pressure 118/71 Pulse Oximetry 100 100 01/25/18 14:00 01/25/18 15:58 01/25/18 16:00 Temperature 98.3 F Pulse Rate 80 85 Respiratory Rate 19 18 Blood Pressure 142/86 H Pulse Oximetry 100 100 Intake & Output 01/24/18 01/25/18 01/25/18 18:59 06:59 18:59 Intake Total 743 / 743 965 / 965 100 / 100 Output Total 1000 / 1000 395 / 395 Balance -257 / -257 570 / 570 100 / 100 Weight 153 lb 3.54 oz Intake: IV 100 / 100 200 / 200 100 / 100 Merrem Inj 1,000 MG In NS Inj 100 / 100 200 / 200 100 / 100 100 ML @ 200 mls/hr IV.SIG Q8H [facility] Rx#:[id number] Oral 0 / 0 Tube Feeding 583 / 583 645 / 645 Tube Irrigant 60 / 60 Water Bolus Amount 120 / 120 Output: Urine 1000 / 1000 Stool 20 / 20 Urine Amount (Catheter) 375 / 375 Indwelling Temp Sensing 375 / 375 Catheter Other: Date of Last Bowel Movement 01/23/18 01/25/18 01/25/18 # Bowel Movements 3 3 # Incontinent Bowel Movements 1 - Urinary Catheter Management Indwelling Temp Sensing Catheter Cath placed during this visit: no Assessment and Plan - Assessment (1) Cardiac arrest Code(s): I46.9 - Cardiac arrest, cause unspecified Status: Acute (2) Altered mental status, unspecified Code(s): R41.82 - Altered mental status, unspecified Status: Acute (3) Seizure Code(s): R56.9 - Unspecified convulsions Status: Acute (4) Palliative care patient Code(s): Z51.5 - Encounter for palliative care Status: Acute (5) History of CVA (cerebrovascular accident) Code(s): Z86.73 - Personal history of transient ischemic attack (TIA), and cerebral infarction without residual deficits Status: Chronic (6) Pneumonia Code(s): J18.9 - Pneumonia, unspecified organism Status: Acute (7) GERD (gastroesophageal reflux disease) Code(s): K21.9 - Gastro-esophageal reflux disease without esophagitis Status: Chronic - Attending Attestation Patient seen and examined. I reviewed and agree with the evaluation and plan as presented. Continue ICU care. Overall prognosis poor. Palliative care evaluation in progress. <Autumn Hoyt - Last Filed: 01/25/18 17:20> (2) Altered mental status, unspecified Qualifiers: Altered mental status type: unspecified Qualified Code(s): R41.82 - Altered mental status, unspecified (6) Pneumonia Qualifiers: Pneumonia type: due to unspecified organism Laterality: unspecified laterality Lung location: unspecified part of lung Qualified Code(s): J18.9 - Pneumonia, unspecified organism <Jamshid De La O - Last Filed: 01/25/18 17:59> (2) Altered mental status, unspecified Qualifiers: Altered mental status type: unspecified Qualified Code(s): R41.82 - Altered mental status, unspecified (6) Pneumonia Qualifiers: Pneumonia type: due to unspecified organism Laterality: unspecified laterality Lung location: unspecified part of lung Qualified Code(s): J18.9 - Pneumonia, unspecified organism
[2018-01-26 05:05] LABS: Anion Gap 5 meq/L (5-15); Blood Urea Nitrogen 14 mg/dL (7-18); Calcium 7.8 mg/dL (8.5-10.1); Carbon Dioxide 32.2 meq/L (21.0-32.0); Chloride 104 meq/L (98-107); Glomerular Filtration Rate Greater Than 89 mL/min (>89); Glucose,Random 202 mg/dL (74-106); Potassium 4.2 meq/L (3.5-5.1); Sodium 141 meq/L (136-145)
[2018-01-26] MEDS: Divalproex 125 MG Sprinkles Capsule G-TUBE SCH ×2 (08:59→20:59)
[2018-01-26] MEDS: Aspirin 325 MG Tablet G-TUBE SCH (08:59)
[2018-01-26] MEDS: Collagenase Oint 30 GM Tube TOPICAL SCH (09:00)
[2018-01-26] MEDS: Potassium Chloride 20 MEQ Pwd Pkt G-TUBE SCH (09:02)
[2018-01-26] MEDS: Pantoprazole Inj 40 MG Vial IV.PUSH SCH (11:49)
--- NOTE | 2018-01-26 13:22 | P.PNCC ---
Subjective Subjective Remarks/Hospital Course: 87 year old female admitted initially for evaluation of a witnessed seizure. The patient is care home resident with multiple medical issues, including history of seizures on Keppra. Per chart review her baseline is alert, confused , and often combative at a care home. She is verbal. She is able to feed herself; she consumes a pureed, nectar-thick diet. She spends most of her time in chair, with limited mobility. 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 The patient's daughter is a ICU nurse at outside of [facility] facility , who is requesting to continue aggressive management. Today early in the morning the patient developed respiratory arrest flowed by a cardiac arrest requiring multiple cycles of CPR and epinephrine injections. The initial rhythm was PEA versus asystolic. After approximately 15 minutes of CPR the patient regained spontaneous circulation. She was intubated just prior to arrest, and later central line and A-line was used due to hemodynamic instability. The patient's daughter was called during the CPR and again requested full code and aggressive management. 01/16 1000 hrs: Gas exchange now acceptable and pH problems have been corrected with ventilator manipulations. The etiology of the rest appears to have been a hypercapnic respiratory acidosis superimposed on a large dominant hemisphere acute stroke. Chest x-ray reviewed tubes and lines in good position. Cardiac rhythm appears to be atrial paced. The QRS is wide and I suspect within there somewhere is a sequential ventricular spike although I do not see it on the monitor. Potassium was elevated at 5.8 we will follow that closely. At present she is requiring 8 mcg/min of epinephrine and urine output has been about 40 mL's. Patient remains critically ill. 01/17: no improvements. severely encephalopathic. remains on epinephrine, although digits are now dusky and our vasopressors may be causing more harm than any improvements at this point. will be forced to use ivf for perfusion instead of epinephrine. I was unable to reach family today, though the family medicine service updated the family and they press on for aggressive measures. unlikely to have any meaningful recovery given large stroke superimposed on baseline poor functionality. 01/18: Remains lethargic but opens eyes to painful stimuli. Involuntarily grasped with the right hand. Left upper extremity is flaccid but withdraws bilateral lower extremity. Dilantin level was elevated on 01/16/2016 will recheck level today and tomorrow morning. Discussed in detail with daughter Kaci 01/19: Neuro exam remains unchanged no improvement in encephalopathy. Dilantin level remains elevated at 24.5, albumin corrected will be much higher. Updated daughter Kaci, she will meet with palliative care today 01/20: Patient is still obtunded encephalopathy. Dilantin level further down 20.3. No seizures. Family at this time wants to continue aggressive care. Patient remains hemodynamically more stable. Urine culture growing gram- negative rods started on Rocephin 01/21: Neuro status remains unchanged remains obtunded encephalopathic. Dilantin level improved to 16.2 today. Urine culture growing ESBL E. coli. Rocephin was discontinued, started on meropenem 1 g IV every 8 hours 01/22: Patient remains intubated remains completely off all sedation for several days. Dilantin level down to 14.2 uncorrected. Slightly more responsive to painful stimuli, continues to have partial eye opening. 01/23: No significant improvement in neuro exam though opening eyes more with stimulation. Dilantin level coming down today 12.8. Albumin is 1.5 corrected level is about 30 mcg/ml. daughter wants to wait a few more days prior to deciding on trach versus withdrawal. 01/24: No real change in neurologic exam. She does move her right arm spontaneously. Her eyes open but I cannot seem to convince myself that she tracks. Blood pressure well controlled. Unable to wean from ventilator. 01/25: No improvement in neurologic exam. She fails CPAP trials when breathing spontaneously and will likely need a tracheostomy. I will discuss with the palliative care service whether the family would like to pursue the trach and PEG route. 01/26: Remains without suitable response to stimulation. Apneic episodes while on spontaneous breathing trials. Objective Vital Signs / I&O: Vital Signs 01/25/18 14:00 01/25/18 15:58 01/25/18 16:00 Temperature 98.3 F Pulse Rate 80 85 Respiratory Rate 19 18 Blood Pressure 142/86 H Pulse Oximetry 100 100 01/25/18 18:00 01/25/18 20:00 01/25/18 20:20 Temperature 98.7 F Pulse Rate 83 83 Respiratory Rate 14 14 Blood Pressure 145/83 H Pulse Oximetry 100 100 01/25/18 22:00 01/26/18 00:00 01/26/18 00:08 Temperature 98.9 F Pulse Rate 81 90 Respiratory Rate 14 24 Blood Pressure 141/96 H Pulse Oximetry 100 100 01/26/18 02:00 01/26/18 03:19 01/26/18 04:00 Temperature 98.9 F Pulse Rate 90 88 Respiratory Rate 14 14 Blood Pressure 118/71 Pulse Oximetry 100 100 01/26/18 06:00 01/26/18 08:00 01/26/18 08:38 Temperature 100.4 F H Pulse Rate 66 86 Respiratory Rate 18 Blood Pressure 142/61 H Pulse Oximetry 100 100 01/26/18 10:00 01/26/18 11:48 01/26/18 12:00 Temperature 99.5 F Pulse Rate 93 H 81 Respiratory Rate 19 Blood Pressure 130/71 Pulse Oximetry 100 100 Intake & Output 01/25/18 01/26/18 01/26/18 18:59 06:59 18:59 Intake Total 845 / 845 985 / 985 100 / 100 Output Total 1375 / 1375 625 / 625 Balance -530 / -530 360 / 360 100 / 100 Weight 69.5 kg Intake: IV 100 / 100 200 / 200 100 / 100 Merrem Inj 1,000 MG In NS Inj 100 / 100 200 / 200 100 / 100 100 ML @ 200 mls/hr IV.SIG Q8H [facility] Rx#:[id number] Oral 0 / 0 Tube Feeding 625 / 625 605 / 605 Tube Irrigant 60 / 60 Water Bolus Amount 120 / 120 120 / 120 Output: Stool 20 / 20 Urine Amount (Catheter) 1375 / 1375 605 / 605 Indwelling Temp Sensing 1375 / 1375 605 / 605 Catheter Other: Date of Last Bowel Movement 01/25/18 01/26/18 01/26/18 # Bowel Movements 3 1 # Incontinent Bowel Movements 3 1 Result Diagrams: 01/24/18 02:45 01/26/18 03:55 Objective Remarks: GEN: frail elderly female, lying in bed, partial eye opening to noxious stimuli HEENT: pupils are 2 mm, equal, reactive. mucous membranes moist. Neck: trachea midline. Orally intubated. Chest: intubated. Ventilator dependent. Equal chest rise. Failed CPAP again due to apnea episodes today, but slightly more regular pattern. CV: normal rate, regular rhythm. No JVD. GI: soft, nontender, nondistended. no guarding. EXT: Tepid, poorly perfused. 1+ edema. Neuro: Partial eye opening to painful stimuli. Spontaneously moving right upper extremity. Withdraws bilateral lower extremities to noxious stimulation. Left upper extremity is flaccid. +cough. +gag. Does not follow commands, remains encephalopathy Assessment and Plan - Assessment and Plan Plan: Assessment: 87yF with acute CVA and now s/p cardiac arrest overlying significant comorbid medical conditions. Poor prognosis. unlikely to have any long-term functional recovery. Discussed with daughter Kaci. ESBL E Coli UTI. 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 Carolina, overall prognosis poor per Dr. Carolina -Sepsis and Dilantin toxicity may be contributing to altered mental status Cardiogenic shock -resolved s/p PEA arrest -Remains off all pressors -Monitor heart rate blood pressure closely Seizure disorder Dilantin toxicity -Dilantin level supratherapeutic. Holding Dilantin, uncorrected Dilantin level is 12.8, albumin corrected level is 32. -Further management per neurology. -EEG ordered by primary service-shows moderate encephalopathy UTI /ESBL E. coli -Rocephin 01/07-01/11 -Urine culture ESBL E. coli, restarted Rocephin 01/20/2018, DCd and start Meropenem 01/21/18 -Started on Fluconazole 01/12 (to continue for a total of 14 days) Clostridium difficile diarrhea -Vancomycin per G-tube 125 mg 4 times daily completed 01/18. Repeat C. difficile test due to diarrhea, negative -Lactobacillus given to assist with gut rod DVT GI prophylaxis -Teds SCDs -Subcu heparin -Pepcid Overall impression: Critically ill following a cardiac arrest. Her neurologic status is severely impaired as is her overall prognosis. Dr. Oneill discussed with daughter Kaci extensively. We recommended against tracheostomy and PEG tube however we will proceed according to family wishes. Daughter Kaci wants to wait over the weekend to see any neuro improvement, she does not want to place a tracheostomy if there is no neurological improvement. Palliative care is following. The chance for any significant meaningful recovery approaches zero. Today tolerated CPAP for a brief period of time but required determination due to apneic episodes.
--- NOTE | 2018-01-26 14:26 | P.PNCA ---
<Autumn Hoyt N - Last Filed: 01/26/18 14:15> Subjective Interval history: pt is intubated and unresponsive. Pt is currently on CPAP trial. SR on monitor, VSS. Physical Exam Vital signs: Vital Signs 01/25/18 15:58 01/25/18 16:00 01/25/18 18:00 Temperature 98.3 F Pulse Rate 85 83 Respiratory Rate 19 18 Blood Pressure 142/86 H Pulse Oximetry 100 100 01/25/18 20:00 01/25/18 20:20 01/25/18 22:00 Temperature 98.7 F Pulse Rate 83 81 Respiratory Rate 14 14 Blood Pressure 145/83 H Pulse Oximetry 100 100 01/26/18 00:00 01/26/18 00:08 01/26/18 02:00 Temperature 98.9 F Pulse Rate 90 90 Respiratory Rate 14 24 Blood Pressure 141/96 H Pulse Oximetry 100 100 01/26/18 03:19 01/26/18 04:00 01/26/18 06:00 Temperature 98.9 F Pulse Rate 88 66 Respiratory Rate 14 14 Blood Pressure 118/71 Pulse Oximetry 100 100 01/26/18 08:00 01/26/18 08:38 01/26/18 10:00 Temperature 100.4 F H Pulse Rate 86 93 H Respiratory Rate 18 Blood Pressure 142/61 H Pulse Oximetry 100 100 01/26/18 11:48 01/26/18 12:00 Temperature 99.5 F Pulse Rate 81 Respiratory Rate 19 Blood Pressure 130/71 Pulse Oximetry 100 100 Intake & Output 01/25/18 01/26/18 01/26/18 18:59 06:59 18:59 Intake Total 845 / 845 985 / 985 100 / 100 Output Total 1375 / 1375 625 / 625 Balance -530 / -530 360 / 360 100 / 100 Weight 69.5 kg Intake: IV 100 / 100 200 / 200 100 / 100 Merrem Inj 1,000 MG In NS Inj 100 / 100 200 / 200 100 / 100 100 ML @ 200 mls/hr IV.SIG Q8H [facility] Rx#:[id number] Oral 0 / 0 Tube Feeding 625 / 625 605 / 605 Tube Irrigant 60 / 60 Water Bolus Amount 120 / 120 120 / 120 Output: Stool 20 / 20 Urine Amount (Catheter) 1375 / 1375 605 / 605 Indwelling Temp Sensing 1375 / 1375 605 / 605 Catheter Other: Date of Last Bowel Movement 01/25/18 01/26/18 01/26/18 # Bowel Movements 3 1 # Incontinent Bowel Movements 3 1 - Constitutional no acute distress - Routine HEENT Exam Head: Present: normocephalic ENT: Present: mucous membranes moist - Routine Respiratory Exam Present: patient mechanically ventilated, decreased breath sounds Comments: Pt intubated and currently on CPAP trial. - Routine Cardiovascular Exam Present: RRR, S1, S2. Absent: murmur, gallop, rubs - Routine Abdominal Exam Present: soft - Routine Extremities Exam Present: edema, pulses intact Comments: Left arm is flaccid with edema present - Routine Skin Exam Present: warm - Routine Neurological Exam pt is unresponsive - Detailed Neurological Exam: Coma Scale Eye Opening: None Verbal Response: None Motor Response: None Henriette Coma Scale Total: 3 - Routine Psychiatric Exam Present: unable to assess - Urinary Catheter Management Indwelling Temp Sensing Catheter Cath placed during this visit: yes Reason for continuing: Severe pressure ulcer/wound Insertion date: 01/16/18 Insertion time: 04:00 Assessment and Plan - Assessment (1) Cardiac arrest Code(s): I46.9 - Cardiac arrest, cause unspecified Status: Acute (2) Altered mental status, unspecified Code(s): R41.82 - Altered mental status, unspecified Status: Acute (3) Seizure Code(s): R56.9 - Unspecified convulsions Status: Acute (4) Palliative care patient Code(s): Z51.5 - Encounter for palliative care Status: Acute (5) History of CVA (cerebrovascular accident) Code(s): Z86.73 - Personal history of transient ischemic attack (TIA), and cerebral infarction without residual deficits Status: Chronic (6) Pneumonia Code(s): J18.9 - Pneumonia, unspecified organism Status: Acute (7) GERD (gastroesophageal reflux disease) Code(s): K21.9 - Gastro-esophageal reflux disease without esophagitis Status: Chronic - Plan Pt is intubated and unresponsive s/p cardiac arrest. SR with PVC on tele. LUE is flaccid. CPAP trial today. Continue current ICU treatment plan. Continue current cardiac treatment plan. Waiting on patients daughter to determine wether a tracheostomy will be placed or a withdraw of life support. Prognosis is poor, palliative care is involved. <Jamshid De La O - Last Filed: 01/26/18 15:45> Physical Exam Vital signs: Vital Signs 01/25/18 15:58 01/25/18 16:00 01/25/18 18:00 Temperature 98.3 F Pulse Rate 85 83 Respiratory Rate 19 18 Blood Pressure 142/86 H Pulse Oximetry 100 100 01/25/18 20:00 01/25/18 20:20 01/25/18 22:00 Temperature 98.7 F Pulse Rate 83 81 Respiratory Rate 14 14 Blood Pressure 145/83 H Pulse Oximetry 100 100 01/26/18 00:00 01/26/18 00:08 01/26/18 02:00 Temperature 98.9 F Pulse Rate 90 90 Respiratory Rate 14 24 Blood Pressure 141/96 H Pulse Oximetry 100 100 01/26/18 03:19 01/26/18 04:00 01/26/18 06:00 Temperature 98.9 F Pulse Rate 88 66 Respiratory Rate 14 14 Blood Pressure 118/71 Pulse Oximetry 100 100 01/26/18 08:00 01/26/18 08:38 01/26/18 10:00 Temperature 100.4 F H Pulse Rate 86 93 H Respiratory Rate 18 Blood Pressure 142/61 H Pulse Oximetry 100 100 01/26/18 11:48 01/26/18 12:00 01/26/18 14:00 Temperature 99.5 F Pulse Rate 81 75 Respiratory Rate 19 Blood Pressure 130/71 Pulse Oximetry 100 100 Intake & Output 01/25/18 01/26/18 01/26/18 18:59 06:59 18:59 Intake Total 845 / 845 985 / 985 100 / 100 Output Total 1375 / 1375 625 / 625 Balance -530 / -530 360 / 360 100 / 100 Weight 153 lb 3.54 oz Intake: IV 100 / 100 200 / 200 100 / 100 Merrem Inj 1,000 MG In NS Inj 100 / 100 200 / 200 100 / 100 100 ML @ 200 mls/hr IV.SIG Q8H [facility] Rx#:[id number] Oral 0 / 0 Tube Feeding 625 / 625 605 / 605 Tube Irrigant 60 / 60 Water Bolus Amount 120 / 120 120 / 120 Output: Stool 20 / 20 Urine Amount (Catheter) 1375 / 1375 605 / 605 Indwelling Temp Sensing 1375 / 1375 605 / 605 Catheter Other: Date of Last Bowel Movement 01/25/18 01/26/18 01/26/18 # Bowel Movements 3 1 # Incontinent Bowel Movements 3 1 - Urinary Catheter Management Indwelling Temp Sensing Catheter Cath placed during this visit: no Assessment and Plan - Assessment (1) Cardiac arrest Code(s): I46.9 - Cardiac arrest, cause unspecified Status: Acute (2) Altered mental status, unspecified Code(s): R41.82 - Altered mental status, unspecified Status: Acute (3) Seizure Code(s): R56.9 - Unspecified convulsions Status: Acute (4) Palliative care patient Code(s): Z51.5 - Encounter for palliative care Status: Acute (5) History of CVA (cerebrovascular accident) Code(s): Z86.73 - Personal history of transient ischemic attack (TIA), and cerebral infarction without residual deficits Status: Chronic (6) Pneumonia Code(s): J18.9 - Pneumonia, unspecified organism Status: Acute (7) GERD (gastroesophageal reflux disease) Code(s): K21.9 - Gastro-esophageal reflux disease without esophagitis Status: Chronic - Attending Attestation Patient seen and examined. I reviewed and agree with the evaluation and plan as presented. Overall prognosis remains poor. <Jamshid De La O - Last Filed: 01/26/18 15:45> (2) Altered mental status, unspecified Qualifiers: Altered mental status type: unspecified Qualified Code(s): R41.82 - Altered mental status, unspecified (6) Pneumonia Qualifiers: Pneumonia type: due to unspecified organism Laterality: unspecified laterality Lung location: unspecified part of lung Qualified Code(s): J18.9 - Pneumonia, unspecified organism
--- NOTE | 2018-01-26 14:33 | P.PNPAL ---
Reason for Visit Reason for visit: a. To assist with evaluation and management of symptoms including: encephalopathy, dyspnea. b. To assist medical decision maker(s) with: better understanding of current medical conditions; weighing benefits/burdens of medical treatment options; making medical treatment decisions. . Subjective Subjective/Interval History: Patient is an 87 year old female long term resident who presented to [facility] on 12/18/2017 with altered mental status after a witnessed seizure. She has remained on mech vent in ICU. CPAP trials however pt not tolerating, will not tolerate medical extubation, will require trach for ongoing ventilator support. CPAP trial today for very short time, pt w apnea, alternating with short periods tachypnea. Chemistry today unremarkable. Last CBC 01/24 stable/ unremarkable. Dilantin level 01/24 therapeutic, neurology following. No significant neurological improvements, ?able tracking. Moving RUE. Pt seen in room no visitors present. She is initially with eyes closed however arouses to verbal and touch. Questionable tracking examiner low does not demonstrate consistent tracking. She grasps with right upper extremity very strongly, spontaneously, however does not release to command, does not release hand or object grasped when requested to do so. No spontaneous movement to left upper, left lower. Very slight movement of the right toes, appears to be localizing to touch. Slight movement left foot to pain. With attempts to examine pupils she squeezes her eyes closed very tightly. No signs of pain or anxiety to my exam Discussed with primary nurse. Nurse indicates patient appeared to be attempting to mouth words earlier though was not able to understand her, she did not follow commands for nursing. She has not spoken with family today. No signs of pain or discomfort per nursing. Following exam call to daughter, healthcare surrogate Sammi, mail left with my contact information. Advance Directives Health Care Surrogate: Copy in medical record Durable Power of Regional Sales Leader: Copy in medical record Advance Directives Date on File: 12/20/17 Health Care Surrogate Name and Number: Kaci Koenig (primary):[phone] Alt HCS : Connie Hector (alternate): Objective Vital Signs: Vital Signs 01/25/18 15:58 01/25/18 16:00 01/25/18 18:00 Temperature 98.3 F Pulse Rate 85 83 Respiratory Rate 19 18 Blood Pressure 142/86 H Pulse Oximetry 100 100 01/25/18 20:00 01/25/18 20:20 01/25/18 22:00 Temperature 98.7 F Pulse Rate 83 81 Respiratory Rate 14 14 Blood Pressure 145/83 H Pulse Oximetry 100 100 01/26/18 00:00 01/26/18 00:08 01/26/18 02:00 Temperature 98.9 F Pulse Rate 90 90 Respiratory Rate 14 24 Blood Pressure 141/96 H Pulse Oximetry 100 100 01/26/18 03:19 01/26/18 04:00 01/26/18 06:00 Temperature 98.9 F Pulse Rate 88 66 Respiratory Rate 14 14 Blood Pressure 118/71 Pulse Oximetry 100 100 01/26/18 08:00 01/26/18 08:38 01/26/18 10:00 Temperature 100.4 F H Pulse Rate 86 93 H Respiratory Rate 18 Blood Pressure 142/61 H Pulse Oximetry 100 100 01/26/18 11:48 01/26/18 12:00 Temperature 99.5 F Pulse Rate 81 Respiratory Rate 19 Blood Pressure 130/71 Pulse Oximetry 100 100 Intake & Output 01/25/18 01/26/18 01/26/18 18:59 06:59 18:59 Intake Total 845 / 845 985 / 985 100 / 100 Output Total 1375 / 1375 625 / 625 Balance -530 / -530 360 / 360 100 / 100 Weight 69.5 kg Intake: IV 100 / 100 200 / 200 100 / 100 Merrem Inj 1,000 MG In NS Inj 100 / 100 200 / 200 100 / 100 100 ML @ 200 mls/hr IV.SIG Q8H [facility] Rx#:[id number] Oral 0 / 0 Tube Feeding 625 / 625 605 / 605 Tube Irrigant 60 / 60 Water Bolus Amount 120 / 120 120 / 120 Output: Stool 20 / 20 Urine Amount (Catheter) 1375 / 1375 605 / 605 Indwelling Temp Sensing 1375 / 1375 605 / 605 Catheter Other: Date of Last Bowel Movement 01/25/18 01/26/18 01/26/18 # Bowel Movements 3 1 # Incontinent Bowel Movements 3 1 Physical Exam: CONSTITUTIONAL/GENERAL: This is a frail, elderly female in no acute distress, lethargic, calm TUBES/LINES/DRAINS: ETT, PIV right upper extremity, PEG tube SKIN: Skin is thin and fragile. Skin warm and dry. Left upper extremity with significant edema. EYES: Forces eyes closed with attempted pupil exam. ?able tracking CARDIOVASCULAR: RRR RESPIRATORY/CHEST: Symmetric, unlabored respirations on vent. few scattered rhonchi. breath sounds equal bilaterally GASTROINTESTINAL: Abdomen soft, nondistended.no palpable masses. No apparent tenderness. Bowel sounds normoactive. GENITOURINARY: Without palpable bladder distension. MUSCULOSKELETAL: Extremities with edema, > LUE. NEUROLOGICAL: Opens eyes to voice/touch. ?able tracking, though does not do so consistently. Withdraws to painful stimuli slightly bilateral lower extremities. No purposeful movements noted. Rt upper moves spont, grasps any object, though does not release to commands or follow commands w RUE. No movement LUE. PSYCHIATRIC: no apparent anxiety, limited assess . Diagnostic Tests Laboratory: Laboratory Results - last 72 hr 01/24/18 01/24/18 01/25/18 02:45 02:45 05:20 WBC 4.9 RBC 3.35 L Hgb 10.1 L Hct 30.7 L MCV 91.6 MCH 30.3 MCHC 33.1 RDW 15.4 Plt Count 126 L MPV 8.9 Sodium 141 142 Potassium 4.1 4.3 Chloride 105 106 Carbon Dioxide 31.4 31.8 Anion Gap 5 4 L BUN 13 13 Creatinine 0.34 L 0.35 L Estimated GFR Greater than 89 Greater than 89 Random Glucose 141 H 163 H Calcium 7.7 L 7.7 L Phenytoin 13.3 01/26/18 03:55 WBC RBC Hgb Hct MCV MCH MCHC RDW Plt Count MPV Sodium 141 Potassium 4.2 Chloride 104 Carbon Dioxide 32.2 H Anion Gap 5 BUN 14 Creatinine 0.34 L Estimated GFR Greater than 89 Random Glucose 202 H Calcium 7.8 L Phenytoin Result Diagrams: 01/24/18 02:45 01/26/18 03:55 Procedures: * PEG tube Assessment and Plan Pertinent Non-Medical Issues: Psychosocial: Patient is . She has a high school education but is now retired. Patient has 6 children. Patient currently resides at [facility] in [place]. Spiritual: [employer] Legal: A healthcare surrogate designation form was completed on 05/06/2017 and designates Kaci Koenig as the primary healthcare surrogate decision-maker. Connie Hector is designated as the alternate healthcare surrogate decision maker. Ethical issues impacting care: No known ethical issues impacting care at this time. Important Contacts: * Kaci Koenig - Health Care Surrogate: [phone] (C) * Connie Jung - Power of Regional Sales Leader/alternate HCS: [phone] (C) * Alexia Kahn - Son: [phone] (C) or [phone] (H) Prognosis: Patient is a frail 87-year-old female with a complex medical history who was admitted following a witnessed seizure status post PEG tube placement. Unfortunately, placement of a PEG tube will not improve this patient's quality of life or functional status. Given patient's advanced age, multiple comorbid conditions in addition to her acute decline, she will remain high risk for ongoing setbacks and complications. Code Status: Full Code Plan: * Decision-making: Patient does not have insight or judgment related to her current medical conditions; it is unlikely that she will regain capacity. A healthcare surrogate designation form was completed on 05/06/2017 and designates Kaci Koenig as the primary healthcare surrogate decision-maker. Connie Hector is designated as the alternate healthcare surrogate decision maker. * FULL CODE * Left message for daughter/ HCS 01/26/18, to further review goals/tracheostomy decision * Symptom management: = Encephalopathy: Multifactorial. Contributing factors may metabolic encephalopathy, seizures, CVA, dementia. Patient admitted for evaluation and management of seizures vs. CVA. Patient has a history of previous CVA 2 with residual left-sided weakness. Dilantin level now 13.3. Slowly becoming more alert though not consistently tracking or following any commands. = Dysphasia: Patient has failed multiple swallow studies. (hx CVAs, dementia ) Status post PEG tube placement on 12/30/2017. = [facility] not tolerating CPAP/weaning. will need trach if family desires continued aggressive care. * Per case management note, patient does not have any more Medicare days and therefore she cannot be transferred to a facility in [place]. Patient has [place] Medicaid; she was previously residing at [facility] and has been accepted back to that facility. Family considering options; they are willing to send the patient back to [facility] if there is no other alternative. * Palliative care will continue to follow during hospital course as condition evolves, to assist patient/decision-maker with understanding of medical conditions, weighing benefits/burdens of treatment options, for clarification of goals of treatment. Additionally will assist with any symptoms of palliative concern Attestation Attestation: To help prompt me to consider important information that might be impacting today's encounter and assessment, information from prior notes written by myself or my colleagues may have been "brought forward" into today's note. My signature on this note, however, is an attestation that I personally performed the exam, history, and/or decision-making noted today, and, unless otherwise indicated, the interactions with patient, family, and staff as well as the review of records all occurred today. I also attest that the listed assessment and stated plan reflect my best clinical judgment today based on the combination of historical information, prior notes, and today's exam/ interactions. When time spent is documented, it refers only to time spent today by the signer, or if indicated, combined time spent today by collaborating physician/nurse practitioner.
[2018-01-27 05:10] LABS: Anion Gap 4 meq/L (5-15); Blood Urea Nitrogen 15 mg/dL (7-18); Calcium 7.7 mg/dL (8.5-10.1); Carbon Dioxide 33.5 meq/L (21.0-32.0); Chloride 103 meq/L (98-107); Glomerular Filtration Rate Greater Than 89 mL/min (>89); Glucose,Random 158 mg/dL (74-106); Potassium 4.2 meq/L (3.5-5.1); Sodium 140 meq/L (136-145)
[2018-01-27] MEDS: Divalproex 125 MG Sprinkles Capsule G-TUBE SCH ×2 (08:20→20:54)
[2018-01-27] MEDS: Aspirin 325 MG Tablet G-TUBE SCH (08:20)
[2018-01-27] MEDS: Potassium Chloride 20 MEQ Pwd Pkt G-TUBE SCH (08:21)
[2018-01-27] MEDS: Collagenase Oint 30 GM Tube TOPICAL SCH (08:22)
--- NOTE | 2018-01-27 08:34 | P.PNCC ---
Subjective Subjective Remarks/Hospital Course: 87 year old female admitted initially for evaluation of a witnessed seizure. The patient is snf resident with multiple medical issues, including history of seizures on Keppra. Per chart review her baseline is alert, confused , and often combative at a snf. She is verbal. She is able to feed herself; she consumes a pureed, nectar-thick diet. She spends most of her time in chair, with limited mobility. She was admitted to [place] in December 18 for the above, while in the hospital she developed right MCA stroke with significant damage of almost entire right hemisphere. The patient's daughter is a ICU nurse at outside of [facility] facility , who is requesting to continue aggressive management. Today early in the morning the patient developed respiratory arrest flowed by a cardiac arrest requiring multiple cycles of CPR and epinephrine injections. The initial rhythm was PEA versus asystolic. After approximately 15 minutes of CPR the patient regained spontaneous circulation. She was intubated just prior to arrest, and later central line and A-line was used due to hemodynamic instability. The patient's daughter was called during the CPR and again requested full code and aggressive management. 01/16 1000 hrs: Gas exchange now acceptable and pH problems have been corrected with ventilator manipulations. The etiology of the rest appears to have been a hypercapnic respiratory acidosis superimposed on a large dominant hemisphere acute stroke. Chest x-ray reviewed tubes and lines in good position. Cardiac rhythm appears to be atrial paced. The QRS is wide and I suspect within there somewhere is a sequential ventricular spike although I do not see it on the monitor. Potassium was elevated at 5.8 we will follow that closely. At present she is requiring 8 mcg/min of epinephrine and urine output has been about 40 mL's. Patient remains critically ill. 01/17: no improvements. severely encephalopathic. remains on epinephrine, although digits are now dusky and our vasopressors may be causing more harm than any improvements at this point. will be forced to use ivf for perfusion instead of epinephrine. I was unable to reach family today, though the family medicine service updated the family and they press on for aggressive measures. unlikely to have any meaningful recovery given large stroke superimposed on baseline poor functionality. 01/18: Remains lethargic but opens eyes to painful stimuli. Involuntarily grasped with the right hand. Left upper extremity is flaccid but withdraws bilateral lower extremity. Dilantin level was elevated on 01/16/2016 will recheck level today and tomorrow morning. Discussed in detail with daughter Kaci 01/19: Neuro exam remains unchanged no improvement in encephalopathy. Dilantin level remains elevated at 24.5, albumin corrected will be much higher. Updated daughter Kaci, she will meet with palliative care today 01/20: Patient is still obtunded encephalopathy. Dilantin level further down 20.3. No seizures. Family at this time wants to continue aggressive care. Patient remains hemodynamically more stable. Urine culture growing gram- negative rods started on Rocephin 01/21: Neuro status remains unchanged remains obtunded encephalopathic. Dilantin level improved to 16.2 today. Urine culture growing ESBL E. coli. Rocephin was discontinued, started on meropenem 1 g IV every 8 hours 01/22: Patient remains intubated remains completely off all sedation for several days. Dilantin level down to 14.2 uncorrected. Slightly more responsive to painful stimuli, continues to have partial eye opening. 01/23: No significant improvement in neuro exam though opening eyes more with stimulation. Dilantin level coming down today 12.8. Albumin is 1.5 corrected level is about 30 mcg/ml. daughter wants to wait a few more days prior to deciding on trach versus withdrawal. 01/24: No real change in neurologic exam. She does move her right arm spontaneously. Her eyes open but I cannot seem to convince myself that she tracks. Blood pressure well controlled. Unable to wean from ventilator. 01/25: No improvement in neurologic exam. She fails CPAP trials when breathing spontaneously and will likely need a tracheostomy. I will discuss with the palliative care service whether the family would like to pursue the trach and PEG route. 01/26: Remains without suitable response to stimulation. Apneic episodes while on spontaneous breathing trials. 01/27: Her eyes are more widely open today. She clearly tracks motion around the room and appears to respond to questions. She moves her right arm and hand weakly to command. This is considerable improvement from yesterday. She remains very weak on spontaneous breathing trials requiring 17 cm water of pressure support. Objective Vital Signs / I&O: Vital Signs 01/26/18 08:38 01/26/18 10:00 01/26/18 11:48 Temperature Pulse Rate 93 H Respiratory Rate Blood Pressure Pulse Oximetry 100 100 01/26/18 12:00 01/26/18 14:00 01/26/18 15:47 Temperature 99.5 F Pulse Rate 81 75 Respiratory Rate 19 14 Blood Pressure 130/71 Pulse Oximetry 100 100 01/26/18 16:00 01/26/18 18:00 01/26/18 20:00 Temperature 99.3 F 99.0 F Pulse Rate 91 H 72 66 Respiratory Rate 23 14 Blood Pressure 136/70 145/71 H Pulse Oximetry 100 100 01/26/18 21:15 01/26/18 22:00 01/27/18 00:00 Temperature 99.7 F H Pulse Rate 85 61 Respiratory Rate 14 13 Blood Pressure 126/60 Pulse Oximetry 100 100 01/27/18 00:04 01/27/18 02:00 01/27/18 04:00 Temperature 100.2 F H Pulse Rate 71 74 Respiratory Rate 14 14 Blood Pressure 122/72 Pulse Oximetry 100 100 01/27/18 04:23 01/27/18 06:00 Temperature Pulse Rate 72 Respiratory Rate 14 Blood Pressure Pulse Oximetry 100 Intake & Output 01/26/18 01/27/18 01/27/18 18:59 06:59 18:59 Intake Total 853 / 853 863 / 863 Output Total 1325 / 1325 400 / 400 Balance -472 / -472 463 / 463 Weight 69.7 kg Intake: IV 200 / 200 100 / 100 Merrem Inj 1,000 MG In NS Inj 200 / 200 100 / 100 100 ML @ 200 mls/hr IV.SIG Q8H [facility] Rx#:[id number] Oral 0 / 0 Tube Feeding 603 / 603 643 / 643 Tube Irrigant 50 / 50 Water Bolus Amount 120 / 120 Output: Urine Amount (Catheter) 1325 / 1325 400 / 400 Indwelling Temp Sensing 1325 / 1325 400 / 400 Catheter Other: Date of Last Bowel Movement 01/26/18 01/27/18 # Bowel Movements 1 # Incontinent Bowel Movements 2 1 Result Diagrams: 01/24/18 02:45 01/27/18 04:21 Objective Remarks: GEN: frail elderly female, lying in bed, spontaneous eye opening. HEENT: pupils are 2 mm, equal, reactive. mucous membranes moist. Neck: trachea midline. Orally intubated. Chest: intubated. Ventilator dependent. Equal chest rise. CV: normal rate, regular rhythm. No JVD. GI: soft, nontender, nondistended. no guarding. EXT: Tepid, poorly perfused. 1+ edema. Neuro: Partial eye opening to painful stimuli. Spontaneously moving right upper extremity. Withdraws bilateral lower extremities to noxious stimulation. Left upper extremity is flaccid. +cough. +gag. Tracks with eyes today. Attempted to wave goodbye with her right hand. Considerable improvement over the past 24 hours. Assessment and Plan - Assessment and Plan Plan: Assessment: 87yF with acute CVA and now s/p cardiac arrest overlying significant comorbid medical conditions. Poor prognosis. unlikely to have any long-term functional recovery. Discussed with daughter Kaci. ESBL E Coli UTI. 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 Carolina, overall prognosis poor per Dr. Carolina -Sepsis and Dilantin toxicity may be contributing to altered mental status Cardiogenic shock -resolved s/p PEA arrest -Remains off all pressors -Monitor heart rate blood pressure closely Seizure disorder Dilantin toxicity -Dilantin level supratherapeutic. Holding Dilantin, uncorrected Dilantin level is 12.8, albumin corrected level is 32. -Further management per neurology. -EEG ordered by primary service-shows moderate encephalopathy UTI /ESBL E. coli -Rocephin 01/07-01/11 -Urine culture ESBL E. coli, restarted Rocephin 01/20/2018, DCd and start Meropenem 01/21/18 -Started on Fluconazole 01/12 (to continue for a total of 14 days) Clostridium difficile diarrhea -Vancomycin per G-tube 125 mg 4 times daily completed 01/18. Repeat C. difficile test due to diarrhea, negative -Lactobacillus given to assist with gut rod DVT GI prophylaxis -Teds SCDs -Subcu heparin -Pepcid Overall impression: Critically ill following a cardiac arrest. Her neurologic status remains severely impaired as is her overall prognosis. We recommended against tracheostomy however we will proceed according to family wishes. Daughter Kaci wants to wait over the weekend to see any neuro improvement, she does not want to place a tracheostomy if there is no neurological improvement. Palliative care is following. Today tolerated CPAP for a brief period of time but required termination due to apneic episodes. Tracking with her eyes today is an improvement but she is still considerably impaired and it does not appear that were going to be able to get her off the ventilator anytime soon.
[2018-01-27] MEDS: Pantoprazole Inj 40 MG Vial IV.PUSH SCH (10:54)
--- NOTE | 2018-01-27 11:03 | P.PNCA ---
<Autumn Hoyt N - Last Filed: 01/27/18 10:49> Subjective Interval history: Pt intubated in no acute distress. Pt on CPAP. SR with PVC's on telemetry. Physical Exam Vital signs: Vital Signs 01/26/18 11:48 01/26/18 12:00 01/26/18 14:00 Temperature 99.5 F Pulse Rate 81 75 Respiratory Rate 19 Blood Pressure 130/71 Pulse Oximetry 100 100 01/26/18 15:47 01/26/18 16:00 01/26/18 18:00 Temperature 99.3 F Pulse Rate 91 H 72 Respiratory Rate 14 23 Blood Pressure 136/70 Pulse Oximetry 100 100 01/26/18 20:00 01/26/18 21:15 01/26/18 22:00 Temperature 99.0 F Pulse Rate 66 85 Respiratory Rate 14 14 Blood Pressure 145/71 H Pulse Oximetry 100 100 01/27/18 00:00 01/27/18 00:04 01/27/18 02:00 Temperature 99.7 F H Pulse Rate 61 71 Respiratory Rate 13 14 Blood Pressure 126/60 Pulse Oximetry 100 100 01/27/18 04:00 01/27/18 04:23 01/27/18 06:00 Temperature 100.2 F H Pulse Rate 74 72 Respiratory Rate 14 14 Blood Pressure 122/72 Pulse Oximetry 100 100 01/27/18 08:00 01/27/18 08:26 Temperature Pulse Rate 82 Respiratory Rate 27 H Blood Pressure Pulse Oximetry 100 Intake & Output 01/26/18 01/27/18 01/27/18 18:59 06:59 18:59 Intake Total 853 / 853 863 / 863 Output Total 1325 / 1325 400 / 400 Balance -472 / -472 463 / 463 Weight 69.7 kg Intake: IV 200 / 200 100 / 100 Merrem Inj 1,000 MG In NS Inj 200 / 200 100 / 100 100 ML @ 200 mls/hr IV.SIG Q8H [facility] Rx#:[id number] Oral 0 / 0 Tube Feeding 603 / 603 643 / 643 Tube Irrigant 50 / 50 Water Bolus Amount 120 / 120 Output: Urine Amount (Catheter) 1325 / 1325 400 / 400 Indwelling Temp Sensing 1325 / 1325 400 / 400 Catheter Other: Date of Last Bowel Movement 01/26/18 01/27/18 01/27/18 # Bowel Movements 1 # Incontinent Bowel Movements 2 1 - Constitutional no acute distress - Routine Respiratory Exam Present: decreased breath sounds Comments: CPAP trial at this time. - Routine Cardiovascular Exam Present: S1, S2. Absent: murmur, gallop, rubs - Routine Abdominal Exam Present: soft - Routine Extremities Exam Present: edema, pulses intact, normal capillary refill Comments: Edema in left arm and lower extremities. - Detailed Neurological Exam: Coma Scale Eye Opening: To pressure Verbal Response: None Motor Response: None [place] Coma Scale Total: 4 - Routine Psychiatric Exam Present: unable to assess - Urinary Catheter Management Indwelling Temp Sensing Catheter Cath placed during this visit: yes Reason for continuing: Severe pressure ulcer/wound Insertion date: 01/16/18 Insertion time: 04:00 Assessment and Plan - Assessment (1) Cardiac arrest Code(s): I46.9 - Cardiac arrest, cause unspecified Status: Acute (2) Altered mental status, unspecified Code(s): R41.82 - Altered mental status, unspecified Status: Acute (3) Seizure Code(s): R56.9 - Unspecified convulsions Status: Acute (4) Palliative care patient Code(s): Z51.5 - Encounter for palliative care Status: Acute (5) History of CVA (cerebrovascular accident) Code(s): Z86.73 - Personal history of transient ischemic attack (TIA), and cerebral infarction without residual deficits Status: Chronic (6) Pneumonia Code(s): J18.9 - Pneumonia, unspecified organism Status: Acute (7) GERD (gastroesophageal reflux disease) Code(s): K21.9 - Gastro-esophageal reflux disease without esophagitis Status: Chronic - Plan Pt is intubated and grimaces to stimulation. SR with PVC on tele. LUE is flaccid. CPAP trial today. Pt tolerated 7 hours on CPAP on 01-26-2018, possibly approaching extubation. Continue current ICU treatment plan. Continue current cardiac treatment plan. Daughter still has not made a decision in regards to tracheostomy placement or withdraw of life support. Prognosis is poor, palliative care is involved. The patient was seen and evaluated by Dr. De La O who participated in are, management and decision making. <Jamshid De La O - Last Filed: 01/27/18 20:10> Physical Exam Vital signs: Vital Signs 01/26/18 21:15 01/26/18 22:00 01/27/18 00:00 Temperature 99.7 F H Pulse Rate 85 61 Respiratory Rate 14 13 Blood Pressure 126/60 Pulse Oximetry 100 100 01/27/18 00:04 01/27/18 02:00 01/27/18 04:00 Temperature 100.2 F H Pulse Rate 71 74 Respiratory Rate 14 14 Blood Pressure 122/72 Pulse Oximetry 100 100 01/27/18 04:23 01/27/18 06:00 01/27/18 08:00 Temperature 99.9 F H Pulse Rate 72 78 Respiratory Rate 14 27 H Blood Pressure 140/63 Pulse Oximetry 100 01/27/18 08:26 01/27/18 10:00 01/27/18 11:36 Temperature Pulse Rate 91 H Respiratory Rate 27 H 13 Blood Pressure Pulse Oximetry 100 100 01/27/18 12:00 01/27/18 14:00 01/27/18 16:00 Temperature 98.6 F 98.4 F Pulse Rate 86 82 81 Respiratory Rate 16 22 Blood Pressure 107/68 114/65 Pulse Oximetry 01/27/18 16:28 01/27/18 18:00 Temperature Pulse Rate 77 Respiratory Rate 14 Blood Pressure Pulse Oximetry 100 Intake & Output 01/27/18 01/27/18 01/28/18 06:59 18:59 06:59 Intake Total 863 / 863 763 / 763 Output Total 400 / 400 1800 / 1800 Balance 463 / 463 -1037 / -1037 Weight 153 lb 10.595 oz Intake: IV 100 / 100 200 / 200 Merrem Inj 1,000 MG In NS Inj 100 / 100 200 / 200 100 ML @ 200 mls/hr IV.SIG Q8H [facility] Rx#:[id number] Oral 0 / 0 Tube Feeding 643 / 643 563 / 563 Water Bolus Amount 120 / 120 Output: Urine Amount (Catheter) 400 / 400 1800 / 1800 Indwelling Temp Sensing 400 / 400 1800 / 1800 Catheter Other: Date of Last Bowel Movement 01/27/18 01/27/18 # Bowel Movements 1 # Incontinent Bowel Movements 1 1 - Urinary Catheter Management Indwelling Temp Sensing Catheter Cath placed during this visit: no Assessment and Plan - Assessment (1) Cardiac arrest Code(s): I46.9 - Cardiac arrest, cause unspecified Status: Acute (2) Altered mental status, unspecified Code(s): R41.82 - Altered mental status, unspecified Status: Acute (3) Seizure Code(s): R56.9 - Unspecified convulsions Status: Acute (4) Palliative care patient Code(s): Z51.5 - Encounter for palliative care Status: Acute (5) History of CVA (cerebrovascular accident) Code(s): Z86.73 - Personal history of transient ischemic attack (TIA), and cerebral infarction without residual deficits Status: Chronic (6) Pneumonia Code(s): J18.9 - Pneumonia, unspecified organism Status: Acute (7) GERD (gastroesophageal reflux disease) Code(s): K21.9 - Gastro-esophageal reflux disease without esophagitis Status: Chronic - Attending Attestation Patient seen and examined. I reviewed and agree with the evaluation and plan as presented. Wean vent as tolerated. Overall prognosis poor. <Autumn Hoyt - Last Filed: 01/27/18 10:49> (2) Altered mental status, unspecified Qualifiers: Altered mental status type: unspecified Qualified Code(s): R41.82 - Altered mental status, unspecified (6) Pneumonia Qualifiers: Pneumonia type: due to unspecified organism Laterality: unspecified laterality Lung location: unspecified part of lung Qualified Code(s): J18.9 - Pneumonia, unspecified organism <Jamshid De La O - Last Filed: 01/27/18 20:10> (2) Altered mental status, unspecified Qualifiers: Altered mental status type: unspecified Qualified Code(s): R41.82 - Altered mental status, unspecified (6) Pneumonia Qualifiers: Pneumonia type: due to unspecified organism Laterality: unspecified laterality Lung location: unspecified part of lung Qualified Code(s): J18.9 - Pneumonia, unspecified organism
[2018-01-28 06:35] LABS: Anion Gap 8 meq/L (5-15); Blood Urea Nitrogen 14 mg/dL (7-18); Calcium 8.1 mg/dL (8.5-10.1); Carbon Dioxide 27.6 meq/L (21.0-32.0); Chloride 102 meq/L (98-107); Glomerular Filtration Rate Greater Than 89 mL/min (>89); Glucose,Random 134 mg/dL (74-106); Potassium 4.1 meq/L (3.5-5.1); Sodium 138 meq/L (136-145)
[2018-01-28] MEDS: Aspirin 325 MG Tablet G-TUBE SCH (10:08)
[2018-01-28] MEDS: Divalproex 125 MG Sprinkles Capsule G-TUBE SCH ×2 (10:09→21:24)
[2018-01-28] MEDS: Collagenase Oint 30 GM Tube TOPICAL SCH (10:13)
[2018-01-28] MEDS: Pantoprazole Inj 40 MG Vial IV.PUSH SCH (10:13)
--- NOTE | 2018-01-28 10:34 | P.PNCA ---
<EvelinaAutumn N - Last Filed: 01/28/18 10:26> Subjective Interval history: Pt still intubated, is on CPAP. Does not appear to be in any distress. VSS. Physical Exam Vital signs: Vital Signs 01/27/18 11:36 01/27/18 12:00 01/27/18 14:00 Temperature 98.6 F Pulse Rate 86 82 Respiratory Rate 13 16 Blood Pressure 107/68 Pulse Oximetry 100 01/27/18 16:00 01/27/18 16:28 01/27/18 18:00 Temperature 98.4 F Pulse Rate 81 77 Respiratory Rate 22 14 Blood Pressure 114/65 Pulse Oximetry 100 01/27/18 20:00 01/27/18 20:39 01/27/18 22:00 Temperature 98.2 F Pulse Rate 78 83 Respiratory Rate 15 21 Blood Pressure 135/70 Pulse Oximetry 98 01/28/18 00:00 01/28/18 00:38 01/28/18 02:00 Temperature 98.8 F Pulse Rate 64 68 Respiratory Rate 14 14 Blood Pressure 117/75 Pulse Oximetry 99 01/28/18 04:00 01/28/18 04:24 01/28/18 06:00 Temperature 100 F H Pulse Rate 76 82 Respiratory Rate 25 H 15 Blood Pressure 118/73 Pulse Oximetry 99 01/28/18 08:49 Temperature Pulse Rate Respiratory Rate 15 Blood Pressure Pulse Oximetry 100 Intake & Output 01/27/18 01/28/18 01/28/18 18:59 06:59 18:59 Intake Total 763 / 763 933 / 933 Output Total 1800 / 1800 750 / 750 Balance -1037 / -1037 183 / 183 Weight 69.6 kg Intake: IV 200 / 200 100 / 100 Merrem Inj 1,000 MG In NS Inj 200 / 200 100 / 100 100 ML @ 200 mls/hr IV.SIG Q8H [facility] Rx#:[id number] Tube Feeding 563 / 563 633 / 633 Water Bolus Amount 200 / 200 Output: Urine Amount (Catheter) 1800 / 1800 750 / 750 Indwelling Temp Sensing 1800 / 1800 750 / 750 Catheter Other: Date of Last Bowel Movement 01/27/18 01/27/18 # Incontinent Bowel Movements 1 0 - Constitutional no acute distress - Routine HEENT Exam Head: Present: normocephalic - Routine Respiratory Exam Present: patient mechanically ventilated - Routine Cardiovascular Exam Present: irregular rhythm. Absent: murmur, gallop, rubs - Routine Abdominal Exam Present: soft - Routine Extremities Exam Present: edema, pulses intact - Routine Neurological Exam pt grimaces to stimulation - Detailed Neurological Exam: Coma Scale Eye Opening: None Verbal Response: None Motor Response: None [place] Coma Scale Total: 3 - Urinary Catheter Management Indwelling Temp Sensing Catheter Cath placed during this visit: yes Reason for continuing: Severe pressure ulcer/wound Insertion date: 01/16/18 Insertion time: 04:00 Assessment and Plan - Assessment (1) Cardiac arrest Code(s): I46.9 - Cardiac arrest, cause unspecified Status: Acute (2) Altered mental status, unspecified Code(s): R41.82 - Altered mental status, unspecified Status: Acute (3) Seizure Code(s): R56.9 - Unspecified convulsions Status: Acute (4) Palliative care patient Code(s): Z51.5 - Encounter for palliative care Status: Acute (5) History of CVA (cerebrovascular accident) Code(s): Z86.73 - Personal history of transient ischemic attack (TIA), and cerebral infarction without residual deficits Status: Chronic (6) Pneumonia Code(s): J18.9 - Pneumonia, unspecified organism Status: Acute (7) GERD (gastroesophageal reflux disease) Code(s): K21.9 - Gastro-esophageal reflux disease without esophagitis Status: Chronic - Plan Pt is intubated and grimaces to stimulation. Pt in and out of A-fib on 2017 mid-day and is currently in A-flutter, appears to have converted around 2300 on 01-27-2018. LUE is flaccid. CPAP trial in progress, possibly approaching extubation. Continue current ICU treatment plan. Continue current cardiac treatment plan. Daughter still has not made a decision in regards to tracheostomy placement or withdraw of life support. Prognosis is poor, palliative care is involved. The patient was seen and evaluated by Dr. De La O who participated in are, management and decision making. <Jamshid De La O - Last Filed: 01/28/18 14:05> Physical Exam Vital signs: Vital Signs 01/27/18 16:00 01/27/18 16:28 01/27/18 18:00 Temperature 98.4 F Pulse Rate 81 77 Respiratory Rate 22 14 Blood Pressure 114/65 Pulse Oximetry 100 01/27/18 20:00 01/27/18 20:39 01/27/18 22:00 Temperature 98.2 F Pulse Rate 78 83 Respiratory Rate 15 21 Blood Pressure 135/70 Pulse Oximetry 98 01/28/18 00:00 01/28/18 00:38 01/28/18 02:00 Temperature 98.8 F Pulse Rate 64 68 Respiratory Rate 14 14 Blood Pressure 117/75 Pulse Oximetry 99 01/28/18 04:00 01/28/18 04:24 01/28/18 06:00 Temperature 100 F H Pulse Rate 76 82 Respiratory Rate 25 H 15 Blood Pressure 118/73 Pulse Oximetry 99 01/28/18 08:00 01/28/18 08:49 01/28/18 12:00 Temperature 100.4 F H 99.9 F H Pulse Rate 82 82 Respiratory Rate 14 15 19 Blood Pressure 119/61 113/62 Pulse Oximetry 100 Intake & Output 01/27/18 01/28/18 01/28/18 18:59 06:59 18:59 Intake Total 763 / 763 933 / 933 Output Total 1800 / 1800 750 / 750 Balance -1037 / -1037 183 / 183 Weight 153 lb 7.068 oz Intake: IV 200 / 200 100 / 100 Merrem Inj 1,000 MG In NS Inj 200 / 200 100 / 100 100 ML @ 200 mls/hr IV.SIG Q8H [facility] Rx#:[id number] Tube Feeding 563 / 563 633 / 633 Water Bolus Amount 200 / 200 Output: Urine Amount (Catheter) 1800 / 1800 750 / 750 Indwelling Temp Sensing 1800 / 1800 750 / 750 Catheter Other: Date of Last Bowel Movement 01/27/18 01/27/18 # Incontinent Bowel Movements 1 0 - Urinary Catheter Management Indwelling Temp Sensing Catheter Cath placed during this visit: no Assessment and Plan - Assessment (1) Cardiac arrest Code(s): I46.9 - Cardiac arrest, cause unspecified Status: Acute (2) Altered mental status, unspecified Code(s): R41.82 - Altered mental status, unspecified Status: Acute (3) Seizure Code(s): R56.9 - Unspecified convulsions Status: Acute (4) Palliative care patient Code(s): Z51.5 - Encounter for palliative care Status: Acute (5) History of CVA (cerebrovascular accident) Code(s): Z86.73 - Personal history of transient ischemic attack (TIA), and cerebral infarction without residual deficits Status: Chronic (6) Pneumonia Code(s): J18.9 - Pneumonia, unspecified organism Status: Acute (7) GERD (gastroesophageal reflux disease) Code(s): K21.9 - Gastro-esophageal reflux disease without esophagitis Status: Chronic - Attending Attestation Patient seen and examined. I reviewed and agree with the evaluation and plan as presented. Wean off the vent as tolerated. Continue ICU care. Overall prognosis remains poor. <Autumn Hoyt N - Last Filed: 01/28/18 10:26> (2) Altered mental status, unspecified Qualifiers: Altered mental status type: unspecified Qualified Code(s): R41.82 - Altered mental status, unspecified (6) Pneumonia Qualifiers: Pneumonia type: due to unspecified organism Laterality: unspecified laterality Lung location: unspecified part of lung Qualified Code(s): J18.9 - Pneumonia, unspecified organism <Jamshid De La O - Last Filed: 01/28/18 14:05> (2) Altered mental status, unspecified Qualifiers: Altered mental status type: unspecified Qualified Code(s): R41.82 - Altered mental status, unspecified (6) Pneumonia Qualifiers: Pneumonia type: due to unspecified organism Laterality: unspecified laterality Lung location: unspecified part of lung Qualified Code(s): J18.9 - Pneumonia, unspecified organism
--- NOTE | 2018-01-28 11:52 | P.PNCC ---
Subjective Subjective Remarks/Hospital Course: 87 year old female admitted initially for evaluation of a witnessed seizure. The patient is [facility] resident with multiple medical issues, including history of seizures on Keppra. Per chart review her baseline is alert, confused , and often combative at a [facility]. She is verbal. She is able to feed herself; she consumes a pureed, nectar-thick diet. She spends most of her time in chair, with limited mobility. 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 The patient's daughter is a ICU nurse at outside of [facility] facility , who is requesting to continue aggressive management. Today early in the morning the patient developed respiratory arrest flowed by a cardiac arrest requiring multiple cycles of CPR and epinephrine injections. The initial rhythm was PEA versus asystolic. After approximately 15 minutes of CPR the patient regained spontaneous circulation. She was intubated just prior to arrest, and later central line and A-line was used due to hemodynamic instability. The patient's daughter was called during the CPR and again requested full code and aggressive management. 01/16 1000 hrs: Gas exchange now acceptable and pH problems have been corrected with ventilator manipulations. The etiology of the rest appears to have been a hypercapnic respiratory acidosis superimposed on a large dominant hemisphere acute stroke. Chest x-ray reviewed tubes and lines in good position. Cardiac rhythm appears to be atrial paced. The QRS is wide and I suspect within there somewhere is a sequential ventricular spike although I do not see it on the monitor. Potassium was elevated at 5.8 we will follow that closely. At present she is requiring 8 mcg/min of epinephrine and urine output has been about 40 mL's. Patient remains critically ill. 01/17: no improvements. severely encephalopathic. remains on epinephrine, although digits are now dusky and our vasopressors may be causing more harm than any improvements at this point. will be forced to use ivf for perfusion instead of epinephrine. I was unable to reach family today, though the family medicine service updated the family and they press on for aggressive measures. unlikely to have any meaningful recovery given large stroke superimposed on baseline poor functionality. 01/18: Remains lethargic but opens eyes to painful stimuli. Involuntarily grasped with the right hand. Left upper extremity is flaccid but withdraws bilateral lower extremity. Dilantin level was elevated on 01/16/2016 will recheck level today and tomorrow morning. Discussed in detail with daughter Kaci 01/19: Neuro exam remains unchanged no improvement in encephalopathy. Dilantin level remains elevated at 24.5, albumin corrected will be much higher. Updated daughter Kaci, she will meet with palliative care today 01/20: Patient is still obtunded encephalopathy. Dilantin level further down 20.3. No seizures. Family at this time wants to continue aggressive care. Patient remains hemodynamically more stable. Urine culture growing gram- negative rods started on Rocephin 01/21: Neuro status remains unchanged remains obtunded encephalopathic. Dilantin level improved to 16.2 today. Urine culture growing ESBL E. coli. Rocephin was discontinued, started on meropenem 1 g IV every 8 hours 01/22: Patient remains intubated remains completely off all sedation for several days. Dilantin level down to 14.2 uncorrected. Slightly more responsive to painful stimuli, continues to have partial eye opening. 01/23: No significant improvement in neuro exam though opening eyes more with stimulation. Dilantin level coming down today 12.8. Albumin is 1.5 corrected level is about 30 mcg/ml. daughter wants to wait a few more days prior to deciding on trach versus withdrawal. 01/24: No real change in neurologic exam. She does move her right arm spontaneously. Her eyes open but I cannot seem to convince myself that she tracks. Blood pressure well controlled. Unable to wean from ventilator. 01/25: No improvement in neurologic exam. She fails CPAP trials when breathing spontaneously and will likely need a tracheostomy. I will discuss with the palliative care service whether the family would like to pursue the trach and PEG route. 01/26: Remains without suitable response to stimulation. Apneic episodes while on spontaneous breathing trials. 01/27: Her eyes are more widely open today. She clearly tracks motion around the room and appears to respond to questions. She moves her right arm and hand weakly to command. This is considerable improvement from yesterday. She remains very weak on spontaneous breathing trials requiring 17 cm water of pressure support. 01/28: Again today she opens her eyes spontaneously intends to track with her eyes. Her respiratory effort remains weak but she has improved stamina over the past 48 hours. I think she would recognize her family at this point. We await their decision on whether to proceed with tracheostomy. Objective Vital Signs / I&O: Vital Signs 01/27/18 12:00 01/27/18 14:00 01/27/18 16:00 Temperature 98.6 F 98.4 F Pulse Rate 86 82 81 Respiratory Rate 16 22 Blood Pressure 107/68 114/65 Pulse Oximetry 01/27/18 16:28 01/27/18 18:00 01/27/18 20:00 Temperature 98.2 F Pulse Rate 77 78 Respiratory Rate 14 15 Blood Pressure 135/70 Pulse Oximetry 100 01/27/18 20:39 01/27/18 22:00 01/28/18 00:00 Temperature 98.8 F Pulse Rate 83 64 Respiratory Rate 21 14 Blood Pressure 117/75 Pulse Oximetry 98 01/28/18 00:38 01/28/18 02:00 01/28/18 04:00 Temperature 100 F H Pulse Rate 68 76 Respiratory Rate 14 25 H Blood Pressure 118/73 Pulse Oximetry 99 01/28/18 04:24 01/28/18 06:00 01/28/18 08:49 Temperature Pulse Rate 82 Respiratory Rate 15 15 Blood Pressure Pulse Oximetry 99 100 Intake & Output 01/27/18 01/28/18 01/28/18 18:59 06:59 18:59 Intake Total 763 / 763 933 / 933 Output Total 1800 / 1800 750 / 750 Balance -1037 / -1037 183 / 183 Weight 69.6 kg Intake: IV 200 / 200 100 / 100 Merrem Inj 1,000 MG In NS Inj 200 / 200 100 / 100 100 ML @ 200 mls/hr IV.SIG Q8H [facility] Rx#:[id number] Tube Feeding 563 / 563 633 / 633 Water Bolus Amount 200 / 200 Output: Urine Amount (Catheter) 1800 / 1800 750 / 750 Indwelling Temp Sensing 1800 / 1800 750 / 750 Catheter Other: Date of Last Bowel Movement 01/27/18 01/27/18 # Incontinent Bowel Movements 1 0 Result Diagrams: 01/24/18 02:45 01/28/18 04:12 Objective Remarks: GEN: frail elderly female, lying in bed, spontaneous eye opening. HEENT: pupils are 2 mm, equal, reactive. mucous membranes moist. Neck: trachea midline. Orally intubated. Chest: intubated. Ventilator dependent. Equal chest rise. No adventitious sounds. CV: normal rate, regular rhythm. No JVD. GI: soft, nontender, nondistended. no guarding. EXT: Tepid, poorly perfused. 1+ edema. Neuro: Partial eye opening to painful stimuli. Spontaneously moving right upper extremity. Withdraws bilateral lower extremities to noxious stimulation. Left upper extremity is flaccid. +cough. +gag. Tracks with eyes again today. Considerable improvement over the past 24 hours. Assessment and Plan - Assessment and Plan Plan: Assessment: 87yF with acute CVA and now s/p cardiac arrest overlying significant comorbid medical conditions. Poor prognosis. unlikely to have any long-term functional recovery. Discussed with daughter Kaci. ESBL E Coli UTI. 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 Carolina, overall prognosis poor per Dr. Carolina -Sepsis and Dilantin toxicity may be contributing to altered mental status Cardiogenic shock -resolved s/p PEA arrest -Remains off all pressors -Monitor heart rate blood pressure closely Seizure disorder Dilantin toxicity -Dilantin level supratherapeutic. Holding Dilantin, uncorrected Dilantin level is 12.8, albumin corrected level is 32. -Further management per neurology. -EEG ordered by primary service-shows moderate encephalopathy UTI /ESBL E. coli -Rocephin 01/07-01/11 -Urine culture ESBL E. coli, restarted Rocephin 01/20/2018, DCd and start Meropenem 01/21/18 -Started on Fluconazole 01/12 (to continue for a total of 14 days) Clostridium difficile diarrhea -Vancomycin per G-tube 125 mg 4 times daily completed 01/18. Repeat C. difficile test due to diarrhea, negative -Lactobacillus given to assist with gut rod DVT GI prophylaxis -Teds SCDs -Subcu heparin -Pepcid Overall impression: Critically ill following a cardiac arrest. Her neurologic status remains severely impaired as is her overall prognosis. We recommended against tracheostomy however we will proceed according to family wishes. Daughter Kaci wants to wait over the weekend to see any neuro improvement, she does not want to place a tracheostomy if there is no neurological improvement. Palliative care is following. Today tolerated CPAP for a brief period of time but required termination due to apneic episodes. Tracking with her eyes today is an improvement but she is still considerably impaired and it does not appear that were going to be able to get her off the ventilator anytime soon. Her Dilantin toxicity may well have played some role in her prolonged somnolence.
--- NOTE | 2018-01-28 15:11 | P.PNPAL ---
Reason for Visit Reason for visit: a. To assist with evaluation and management of symptoms including: encephalopathy, dyspnea. b. To assist medical decision maker(s) with: better understanding of current medical conditions; weighing benefits/burdens of medical treatment options; making medical treatment decisions. . Subjective Subjective/Interval History: Patient is an 87 year old female senior care resident who presented to [place] ED on 12/18/2017 with altered mental status after a witnessed seizure. Patient seen and examined in ICU. No family at bedside. Patient remains on mech vent. Patient tolerates intermittent CPAP trials however pt not tolerating consistently, Dr. Burden does not feel we will be able to medically extubate anytime soon. Will require tracheostomy for ongoing ventilator support. Patient awakens easily to voice. She appears to track. She does not follow commands for me. She squeezes anything you put in right hand and does not let go on command. She withdraws to pain bilateral LEs. No movement noted in left UE , left arm edema noted. Chemistry today unremarkable. Last CBC 01/24 stable/unremarkable. Dilantin level 01/24 therapeutic. Discussed with primary nurse and Dr. Burden. Family/Friend Interactions: Called daughterKaci left message for return call regarding trach. Called daughter Nanci to provide medical update. She agrees that family would want to proceed with tracheostomy. She will ask Kaci to call me. Call from daniel Clemons/ [facility]. Medical update provided. She has decided to proceed with tracheostomy as she feels this would be in keeping with patient wishes. She feels given neuro changes they need to give her a chance. She understands patient remains high risk for further setback and decline. Patient will likely develop repeat infection and hospitalizations post discharge. Daughter is a nurse and is very realistic. She appreciates palliative care update. Advised nursing staff will call for consent. Advance Directives Health Care Surrogate: Copy in medical record Durable Power of School Psychology Specialist: Copy in medical record Advance Directives Date on File: 12/20/17 Health Care Surrogate Name and Number: Kaci Koenig (primary):[phone] Alt HCS : Connie Hector (alternate): Significant change in goals:: Family has decided to proceed with tracheostomy. FULL CODE. Objective Vital Signs: Vital Signs 01/27/18 16:00 01/27/18 16:28 01/27/18 18:00 Temperature 98.4 F Pulse Rate 81 77 Respiratory Rate 22 14 Blood Pressure 114/65 Pulse Oximetry 100 01/27/18 20:00 01/27/18 20:39 01/27/18 22:00 Temperature 98.2 F Pulse Rate 78 83 Respiratory Rate 15 21 Blood Pressure 135/70 Pulse Oximetry 98 01/28/18 00:00 01/28/18 00:38 01/28/18 02:00 Temperature 98.8 F Pulse Rate 64 68 Respiratory Rate 14 14 Blood Pressure 117/75 Pulse Oximetry 99 01/28/18 04:00 01/28/18 04:24 01/28/18 06:00 Temperature 100 F H Pulse Rate 76 82 Respiratory Rate 25 H 15 Blood Pressure 118/73 Pulse Oximetry 99 01/28/18 08:00 01/28/18 08:49 01/28/18 10:00 Temperature 100.4 F H Pulse Rate 82 79 Respiratory Rate 14 15 Blood Pressure 119/61 Pulse Oximetry 100 01/28/18 12:00 01/28/18 14:00 Temperature 99.9 F H Pulse Rate 82 72 Respiratory Rate 19 Blood Pressure 113/62 Pulse Oximetry Intake & Output 01/27/18 01/28/18 01/28/18 18:59 06:59 18:59 Intake Total 763 / 763 933 / 933 Output Total 1800 / 1800 750 / 750 Balance -1037 / -1037 183 / 183 Weight 69.6 kg Intake: IV 200 / 200 100 / 100 Merrem Inj 1,000 MG In NS Inj 200 / 200 100 / 100 100 ML @ 200 mls/hr IV.SIG Q8H [facility] Rx#:[id number] Tube Feeding 563 / 563 633 / 633 Water Bolus Amount 200 / 200 Output: Urine Amount (Catheter) 1800 / 1800 750 / 750 Indwelling Temp Sensing 1800 / 1800 750 / 750 Catheter Other: Date of Last Bowel Movement 01/27/18 01/27/18 01/27/18 # Incontinent Bowel Movements 1 0 Physical Exam: CONSTITUTIONAL/GENERAL: This is a frail, elderly female in no acute distress. TUBES/LINES/DRAINS: ETT, PIV right upper extremity, PEG tube SKIN: Skin is thin and fragile. Skin warm and dry. Left upper extremity with significant edema. EYES: pupils equal. CARDIOVASCULAR: RRR RESPIRATORY/CHEST: Symmetric, unlabored respirations on vent. few scattered rhonchi. breath sounds equal bilaterally GASTROINTESTINAL: Abdomen soft, nondistended.no palpable masses. No apparent tenderness. Bowel sounds normoactive. GENITOURINARY: Without palpable bladder distension. MUSCULOSKELETAL: Extremities with edema, > LUE. NEUROLOGICAL: Opens eyes to voice/touch. Appears to be tracking. Withdraws to painful stimuli slightly bilateral lower extremities. No purposeful movements noted. Rt upper moves spont, grasps any object, though does not release to commands or follow commands w RUE. No movement LUE. PSYCHIATRIC: no apparent anxiety, limited assess . Diagnostic Tests Laboratory: Laboratory Results - last 72 hr 01/26/18 01/27/18 01/28/18 03:55 04:21 04:12 Sodium 141 140 138 Potassium 4.2 4.2 4.1 Chloride 104 103 102 Carbon Dioxide 32.2 H 33.5 H 27.6 Anion Gap 5 4 L 8 BUN 14 15 14 Creatinine 0.34 L 0.32 L 0.26 L Estimated GFR Greater than 89 Greater than 89 Greater than 89 Random Glucose 202 H 158 H 134 H Calcium 7.8 L 7.7 L 8.1 L Result Diagrams: 01/24/18 02:45 01/28/18 04:12 Procedures: * PEG tube Assessment and Plan Pertinent Non-Medical Issues: Psychosocial: Patient is . She has a high school education but is now retired. Patient has 6 children. Patient currently resides at [facility] in [place]. Spiritual: Rastafarian mira Legal: A healthcare surrogate designation form was completed on 05/06/2017 and designates Kaci Koenig as the primary healthcare surrogate decision-maker. Connie Hector is designated as the alternate healthcare surrogate decision maker. Ethical issues impacting care: No known ethical issues impacting care at this time. Important Contacts: * Kaci Koenig - Health Care Surrogate: [phone] (C) * Connie Jung - Power of School Psychology Specialist/alternate [facility]: [phone] (C) * Alexia Kahn - Son: [phone] (C) or [phone] (H) Prognosis: Patient is a frail 87-year-old female with a complex medical history who was admitted following a witnessed seizure status post PEG tube placement. Unfortunately, placement of a PEG tube will not improve this patient's quality of life or functional status. Given patient's advanced age, multiple comorbid conditions in addition to her acute decline, she will remain high risk for ongoing setbacks and complications. Code Status: Full Code Plan: * Decision-making: Patient does not have insight or judgment related to her current medical conditions; it is unlikely that she will regain capacity. A healthcare surrogate designation form was completed on 05/06/2017 and designates Kaci Koenig as the primary healthcare surrogate decision-maker. Connie Hector is designated as the alternate healthcare surrogate decision maker. * FULL CODE * Call from Kaci, daughter/ [facility]. Medical update provided. She has decided to proceed with tracheostomy as she feels this would be in keeping with patient wishes. She feels given neuro changes they need to give her a chance. She understands patient remains high risk for further setback and decline. Patient will likely develop repeat infection and hospitalizations post discharge. Daughter is a nurse and is very realistic. She appreciates palliative care update. Advised nursing staff will call for consent. * Dr. Burden notified of family decision. * Symptom management: = Encephalopathy: Multifactorial. Contributing factors may metabolic encephalopathy, seizures, CVA, dementia. Patient admitted for evaluation and management of seizures vs. CVA. Patient has a history of previous CVA 2 with residual left-sided weakness. Dilantin level now 13.3. Improving. = Dysphasia: Patient has failed multiple swallow studies. (hx CVAs, dementia ) Status post PEG tube placement on 12/30/2017. = Dyspnea: on mech vent, not tolerating CPAP/weaning. Family has elected to proceed with trach. * Per case management note, patient does not have any more Medicare days and therefore she cannot be transferred to a facility in [place]. Patient has [place] Medicaid; she was previously residing at [facility] and has been accepted back to that facility. Family considering options; they are willing to send the patient back to [facility] if there is no other alternative. * Palliative care will continue to follow during hospital course as condition evolves, to assist patient/decision-maker with understanding of medical conditions, weighing benefits/burdens of treatment options, for clarification of goals of treatment. Additionally will assist with any symptoms of palliative concern Attestation Attestation: To help prompt me to consider important information that might be impacting today's encounter and assessment, information from prior notes written by myself or my colleagues may have been "brought forward" into today's note. My signature on this note, however, is an attestation that I personally performed the exam, history, and/or decision-making noted today, and, unless otherwise indicated, the interactions with patient, family, and staff as well as the review of records all occurred today. I also attest that the listed assessment and stated plan reflect my best clinical judgment today based on the combination of historical information, prior notes, and today's exam/ interactions. When time spent is documented, it refers only to time spent today by the signer, or if indicated, combined time spent today by collaborating physician/nurse practitioner.
--- NOTE | 2018-01-28 15:22 | P.DIET ---
Nutritional Evaluation Type of nutrition evaluation: follow-up Nutrition consult regarding: Tube Feeding Nutrition [place] [facility] [place] Screening comments: Pt transferred to [facility] due to Halicat. Subjective Subjective Comments: Pt resides in a NH. Objective - Diagnosis Seizures, AMS. PMH see H&P - Objective % IBW: 119 (IBW = 135#) Body Weight Used for Calculations: IBW Energy Needs - Lower Range (kCal/kg): 25 Energy Needs - Upper Range (kCal/kg): 30 Lower Limit kCal/kg (kCals): 1,535 Upper Limit kCal/kg (kCals): 1,842 Lower Limit Protein Factor (Grams per Kg): 1.2 Upper Limit Protein Factor (Grams per Kg): 1.5 Lower Protein Needs (Protein): 74 Upper Protein Needs (Protein): 92 Dietitian Reviewed in Medical Record: Curent medications, Intake & Output, Labs , Medical history, Tube feeding, Wound/DTI Diet Order: NPO Wound Care Note: see WOCN dated 01/20: R buttock stage 4, L sacrum, sacrum stage 4, L lower back stage 2 Feeding - Current Tube Feeding Tube Feeding Product: Jevity 1.5 Tube Feeding Rate: 50 Current kCals Provided by Tube Feedin,800 Current Protein Provided by Tube Feeding (gPRO): 77 Current Free H2O Provided (m/l): 912 Assessment Assessment: Pt is s/p cardiac and respiratory arrest (01/16) and shows some improvement. She has been tolerating Jevity 1.5 @ 50 mls/hr and this adequately meets estimated needs. Pt has Dilantin on hold. It was last given on 01/18. When/if Dilantin is restarted, TF will need to be held one hour before and one hour after it is given. This will change TF run time and an adjustment will need to be made for goal rate. Significant wt changes noted: 55 kg on (01/12), 67.3 kg on (01/13), 69.2 kg (01/17) and 76.5 kg on (01/17) and CBW = 69.6. LBM 726. Will monitor for trends. Elevated glucose noted, may want to consider Glucerna 1.5 formula for better glucose control. Recommendations: Continue Jveity 1.5 @ 50 mls/hr Consider formula change to Glucerna 1.5 for better glucose control Dietitian to Monitor: Lab values, Glucose level, Tube feeding tolerance, Weight change, Wound/skin status, Medical course
[2018-01-28] MEDS: Potassium Chloride 20 MEQ Pwd Pkt G-TUBE SCH (18:29)
[2018-01-29 05:28] LABS: Anion Gap 3 meq/L (5-15); Blood Urea Nitrogen 19 mg/dL (7-18); Carbon Dioxide 30.7 meq/L (21.0-32.0); Chloride 103 meq/L (98-107); Glomerular Filtration Rate Greater Than 89 mL/min (>89); Glucose,Random 149 mg/dL (74-106); Potassium 4.4 meq/L (3.5-5.1); Sodium 137 meq/L (136-145)
[2018-01-29] MEDS: Aspirin 325 MG Tablet G-TUBE SCH (10:00)
[2018-01-29] MEDS: Divalproex 125 MG Sprinkles Capsule G-TUBE SCH ×2 (10:01→21:05)
[2018-01-29] MEDS: Pantoprazole Inj 40 MG Vial IV.PUSH SCH (10:01)
[2018-01-29] MEDS: Collagenase Oint 30 GM Tube TOPICAL SCH (10:04)
[2018-01-29] MEDS: Potassium Chloride 20 MEQ Pwd Pkt G-TUBE SCH (11:43)
--- NOTE | 2018-01-29 17:24 | P.PNCC ---
Subjective Subjective Remarks/Hospital Course: 87 year old female admitted initially for evaluation of a witnessed seizure. The patient is senior living resident with multiple medical issues, including history of seizures on Keppra. Per chart review her baseline is alert, confused , and often combative at a senior living. She is verbal. She is able to feed herself; she consumes a pureed, nectar-thick diet. She spends most of her time in chair, with limited mobility. She was admitted to [place] in December 18 for the above, while in the hospital she developed right MCA stroke with significant damage of almost entire right hemisphere. The patient's daughter is a ICU nurse at outside of [facility] facility , who is requesting to continue aggressive management. Today early in the morning the patient developed respiratory arrest flowed by a cardiac arrest requiring multiple cycles of CPR and epinephrine injections. The initial rhythm was PEA versus asystolic. After approximately 15 minutes of CPR the patient regained spontaneous circulation. She was intubated just prior to arrest, and later central line and A-line was used due to hemodynamic instability. The patient's daughter was called during the CPR and again requested full code and aggressive management. 01/16 1000 hrs: Gas exchange now acceptable and pH problems have been corrected with ventilator manipulations. The etiology of the rest appears to have been a hypercapnic respiratory acidosis superimposed on a large dominant hemisphere acute stroke. Chest x-ray reviewed tubes and lines in good position. Cardiac rhythm appears to be atrial paced. The QRS is wide and I suspect within there somewhere is a sequential ventricular spike although I do not see it on the monitor. Potassium was elevated at 5.8 we will follow that closely. At present she is requiring 8 mcg/min of epinephrine and urine output has been about 40 mL's. Patient remains critically ill. 01/17: no improvements. severely encephalopathic. remains on epinephrine, although digits are now dusky and our vasopressors may be causing more harm than any improvements at this point. will be forced to use ivf for perfusion instead of epinephrine. I was unable to reach family today, though the family medicine service updated the family and they press on for aggressive measures. unlikely to have any meaningful recovery given large stroke superimposed on baseline poor functionality. 01/18: Remains lethargic but opens eyes to painful stimuli. Involuntarily grasped with the right hand. Left upper extremity is flaccid but withdraws bilateral lower extremity. Dilantin level was elevated on 01/16/2016 will recheck level today and tomorrow morning. Discussed in detail with daughter Kaci 01/19: Neuro exam remains unchanged no improvement in encephalopathy. Dilantin level remains elevated at 24.5, albumin corrected will be much higher. Updated daughter Kaci, she will meet with palliative care today 01/20: Patient is still obtunded encephalopathy. Dilantin level further down 20.3. No seizures. Family at this time wants to continue aggressive care. Patient remains hemodynamically more stable. Urine culture growing gram- negative rods started on Rocephin 01/21: Neuro status remains unchanged remains obtunded encephalopathic. Dilantin level improved to 16.2 today. Urine culture growing ESBL E. coli. Rocephin was discontinued, started on meropenem 1 g IV every 8 hours 01/22: Patient remains intubated remains completely off all sedation for several days. Dilantin level down to 14.2 uncorrected. Slightly more responsive to painful stimuli, continues to have partial eye opening. 01/23: No significant improvement in neuro exam though opening eyes more with stimulation. Dilantin level coming down today 12.8. Albumin is 1.5 corrected level is about 30 mcg/ml. daughter wants to wait a few more days prior to deciding on trach versus withdrawal. 01/24: No real change in neurologic exam. She does move her right arm spontaneously. Her eyes open but I cannot seem to convince myself that she tracks. Blood pressure well controlled. Unable to wean from ventilator. 01/25: No improvement in neurologic exam. She fails CPAP trials when breathing spontaneously and will likely need a tracheostomy. I will discuss with the palliative care service whether the family would like to pursue the trach and PEG route. 01/26: Remains without suitable response to stimulation. Apneic episodes while on spontaneous breathing trials. 01/27: Her eyes are more widely open today. She clearly tracks motion around the room and appears to respond to questions. She moves her right arm and hand weakly to command. This is considerable improvement from yesterday. She remains very weak on spontaneous breathing trials requiring 17 cm water of pressure support. 01/28: Again today she opens her eyes spontaneously intends to track with her eyes. Her respiratory effort remains weak but she has improved stamina over the past 48 hours. I think she would recognize her family at this point. We await their decision on whether to proceed with tracheostomy. 01/29: A little more lethargic today. She opens her eyes but not with the alertness of yesterday. She failed CPAP trials again today and less quite high pressure support is used. The daughter Kaci would like to proceed with tracheostomy despite the fact that recovery may be limited. Objective Vital Signs / I&O: Vital Signs 01/28/18 18:00 01/28/18 20:00 01/28/18 20:53 Temperature 99.9 F H Pulse Rate 74 69 Respiratory Rate 17 17 Blood Pressure 165/58 H Pulse Oximetry 99 01/28/18 22:00 01/29/18 00:00 01/29/18 01:32 Temperature 100.2 F H Pulse Rate 74 80 Respiratory Rate 17 15 Blood Pressure 106/60 Pulse Oximetry 98 01/29/18 02:00 01/29/18 04:00 01/29/18 04:30 Temperature 99.1 F Pulse Rate 68 68 Respiratory Rate 14 17 Blood Pressure 121/78 Pulse Oximetry 100 01/29/18 06:00 01/29/18 08:00 01/29/18 08:39 Temperature 99.0 F Pulse Rate 62 60 Respiratory Rate 19 12 Blood Pressure 132/60 Pulse Oximetry 100 01/29/18 09:40 01/29/18 13:28 01/29/18 16:14 Temperature Pulse Rate Respiratory Rate 19 19 Blood Pressure Pulse Oximetry 100 100 100 Intake & Output 01/28/18 01/29/18 01/29/18 18:59 06:59 18:59 Intake Total 929 / 929 200 / 200 Output Total 1000 / 1000 1000 / 1000 Balance -71 / -71 -800 / -800 Weight 66.9 kg Intake: IV 100 / 100 200 / 200 Merrem Inj 1,000 MG In NS Inj 100 / 100 200 / 200 100 ML @ 200 mls/hr IV.SIG Q8H [facility] Rx#:[id number] Tube Feeding 709 / 709 Water Bolus Amount 120 / 120 Output: Urine Amount (Catheter) 1000 / 1000 1000 / 1000 Indwelling Temp Sensing 1000 / 1000 1000 / 1000 Catheter Other: Date of Last Bowel Movement 01/27/18 01/29/18 # Incontinent Bowel Movements 1 1 Result Diagrams: 01/24/18 02:45 01/29/18 03:47 Objective Remarks: GEN: frail elderly female, lying in bed, spontaneous eye opening. HEENT: pupils are 2 mm, equal, reactive. mucous membranes moist. Neck: trachea midline. Orally intubated. Chest: intubated. Ventilator dependent. Equal chest rise. No adventitious sounds. CV: normal rate, regular rhythm. No JVD. GI: soft, nontender, nondistended. no guarding. EXT: Tepid, poorly perfused. 1+ edema. Neuro: Spontaneous eye opening. Spontaneously moving right upper extremity. Withdraws bilateral lower extremities to noxious stimulation. Left upper extremity is flaccid. +cough. +gag. Tracks with eyes again today. Considerable improvement over the past 24 hours. Assessment and Plan - Assessment and Plan Plan: Assessment: 87yF with acute CVA and now s/p cardiac arrest overlying significant comorbid medical conditions. Poor prognosis. unlikely to have any long-term functional recovery. Discussed with daughter Kaci. ESBL E Coli UTI. 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 Carolina, overall prognosis poor per Dr. Carolina -Sepsis and Dilantin toxicity may be contributing to altered mental status Cardiogenic shock -resolved s/p PEA arrest -Remains off all pressors -Monitor heart rate blood pressure closely Seizure disorder Dilantin toxicity -Dilantin level supratherapeutic. Holding Dilantin, uncorrected Dilantin level is 12.8, albumin corrected level is 32. -Further management per neurology. -EEG ordered by primary service-shows moderate encephalopathy UTI /ESBL E. coli -Rocephin 01/07-01/11 -Urine culture ESBL E. coli, restarted Rocephin 01/20/2018, DCd and start Meropenem 01/21/18 -Started on Fluconazole 01/12 (to continue for a total of 14 days) Clostridium difficile diarrhea -Vancomycin per G-tube 125 mg 4 times daily completed 01/18. Repeat C. difficile test due to diarrhea, negative -Lactobacillus given to assist with gut rod DVT GI prophylaxis -Teds SCDs -Subcu heparin -Pepcid Overall impression: Critically ill following a cardiac arrest. Her neurologic status remains severely impaired as is her overall prognosis. We recommended against tracheostomy however we will proceed according to family wishes. Daughter Kaci wants to wait over the weekend to see any neuro improvement, she does not want to place a tracheostomy if there is no neurological improvement. Palliative care is following. Today tolerated CPAP for a brief period of time but required termination due to apneic episodes. Tracking with her eyes today is an improvement but she is still considerably impaired and it does not appear that were going to be able to get her off the ventilator anytime soon. Her Dilantin toxicity may well have played some role in her prolonged somnolence. Plan tracheostomy tomorrow per the wishes of her daughter.
[2018-01-30] MEDS: Aspirin 325 MG Tablet G-TUBE SCH (09:36)
[2018-01-30] MEDS: Potassium Chloride 20 MEQ Pwd Pkt G-TUBE SCH (09:36)
[2018-01-30] MEDS: Divalproex 125 MG Sprinkles Capsule G-TUBE SCH ×2 (09:37→20:51)
[2018-01-30] MEDS: Collagenase Oint 30 GM Tube TOPICAL SCH (09:39)
[2018-01-30] MEDS: Pantoprazole Inj 40 MG Vial IV.PUSH SCH (10:40)
[2018-01-30] MEDS ORDERED: fentaNYL Citrate Inj 100 MCG/2 ML Ampul IV.PUSH ONE (11:30)
--- NOTE | 2018-01-30 13:26 | P.PCN ---
Date of procedure: 01/30/18 Pre-op diagnosis: Resp failure with ventilator dependence Post-op diagnosis: same Procedure: Procedure: Diagnostic and Therapeutic flexible fiberoptic bronchoscopy Operation:Time out performed and suitable patient identification accomplished. The patient is orotracheally intubated and on controlled rate mechanical ventilation. ICU invasive monitoring are in place. Sedation administered by the operative team, see separate tracheostomy note. The flexible bronchoscope was delivered through a sealed side-port in the ventilator circuit near the endotracheal tube. The tracheobronchial tree was inspected and found to be clear, normal in appearance without edema or inflammation. The branching pattern is anatomically normal. At this point the endotracheal tube and bronchoscope were withdrawn to the level of the cricoid cartilage in this location was used to visualize the percutaneous tracheostomy procedure performed by separate team. Following the insertion of the percutaneous tracheostomy tube the bronchoscope was immediately delivered through the new tracheostomy tube and confirmed position in the mid trachea safely above the lili, small amount of blood was suctioned out. Inner cannula was placed and mechanical ventilation was once again accomplished with good return of mechanical breath volumes. Bilateral breath sounds were auscultated. Oxygen saturation remained greater than 98% throughout the procedure. Anesthesia: MAC Surgeon: Agus Oneill Estimated blood loss (mL): 0 Condition: critical Disposition: ICU
--- NOTE | 2018-01-30 14:31 | P.PCN ---
Procedure: Diagnosis: Acute hypoxemic respiratory failure. Operation: Percutaneous tracheostomy #8 Marciley Surgeon: Sobeida Burden MD Potato Seed Cutter: Roderick Najera MD Procedure: Time-out was performed and the patient suitably identified. Recognizing the improvement in the patient's alertness the daughter wishes for us to proceed with tracheostomy. The woman's neck is fairly rigid chronically in a moderately flexed position requiring the tracheostomy incision to be made slightly higher than normal. She was orotracheally intubated prior to the procedure and remained on mechanical ventilation throughout. The usual ICU invasive monitoring. The anterior neck was painted with disinfectant and draped. Skin and subcutaneous tissue infiltration with 1% lidocaine and epinephrine was accomplished. A 2 cm vertical skin incision was made approximately 2 and half centimeters above the sternal notch in the midline. A large bore needle was then used to cannulate the trachea at the level of the first ring while a separate team provided visualization using bronchoscope guidance. A wire was then delivered down to the level of the lili and serial dilators passed. The #8 Shiley tracheostomy tube was then passed over the final dilator and delivered easily into position. The bronchoscope was then delivered down the new tracheostomy tube to confirm its position in the mid trachea safely above the lili. The inner cannula was then placed in the tracheostomy tube and the ventilatory circuit was moved over to the new tracheostomy. Oxygen saturation was maintained greater than 95% throughout the procedure. Normal tidal volumes were returned and good bilateral breath sounds were auscultated. The flange of the tracheostomy tube was sewn to the skin using 4 individual sutures and a circumferential tie was placed around the neck.
--- NOTE | 2018-01-30 14:33 | P.PNCC ---
Subjective Subjective Remarks/Hospital Course: 87 year old female admitted initially for evaluation of a witnessed seizure. The patient is long-term resident with multiple medical issues, including history of seizures on Keppra. Per chart review her baseline is alert, confused , and often combative at a long-term. She is verbal. She is able to feed herself; she consumes a pureed, nectar-thick diet. She spends most of her time in chair, with limited mobility. 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 The patient's daughter is a ICU nurse at outside of [facility] , who is requesting to continue aggressive management. Today early in the morning the patient developed respiratory arrest flowed by a cardiac arrest requiring multiple cycles of CPR and epinephrine injections. The initial rhythm was PEA versus asystolic. After approximately 15 minutes of CPR the patient regained spontaneous circulation. She was intubated just prior to arrest, and later central line and A-line was used due to hemodynamic instability. The patient's daughter was called during the CPR and again requested full code and aggressive management. 01/16 1000 hrs: Gas exchange now acceptable and pH problems have been corrected with ventilator manipulations. The etiology of the rest appears to have been a hypercapnic respiratory acidosis superimposed on a large dominant hemisphere acute stroke. Chest x-ray reviewed tubes and lines in good position. Cardiac rhythm appears to be atrial paced. The QRS is wide and I suspect within there somewhere is a sequential ventricular spike although I do not see it on the monitor. Potassium was elevated at 5.8 we will follow that closely. At present she is requiring 8 mcg/min of epinephrine and urine output has been about 40 mL's. Patient remains critically ill. 01/17: no improvements. severely encephalopathic. remains on epinephrine, although digits are now dusky and our vasopressors may be causing more harm than any improvements at this point. will be forced to use ivf for perfusion instead of epinephrine. I was unable to reach family today, though the family medicine service updated the family and they press on for aggressive measures. unlikely to have any meaningful recovery given large stroke superimposed on baseline poor functionality. 01/18: Remains lethargic but opens eyes to painful stimuli. Involuntarily grasped with the right hand. Left upper extremity is flaccid but withdraws bilateral lower extremity. Dilantin level was elevated on 01/16/2016 will recheck level today and tomorrow morning. Discussed in detail with daughter Kaci 01/19: Neuro exam remains unchanged no improvement in encephalopathy. Dilantin level remains elevated at 24.5, albumin corrected will be much higher. Updated daughter Kaci, she will meet with palliative care today 01/20: Patient is still obtunded encephalopathy. Dilantin level further down 20.3. No seizures. Family at this time wants to continue aggressive care. Patient remains hemodynamically more stable. Urine culture growing gram- negative rods started on Rocephin 01/21: Neuro status remains unchanged remains obtunded encephalopathic. Dilantin level improved to 16.2 today. Urine culture growing ESBL E. coli. Rocephin was discontinued, started on meropenem 1 g IV every 8 hours 01/22: Patient remains intubated remains completely off all sedation for several days. Dilantin level down to 14.2 uncorrected. Slightly more responsive to painful stimuli, continues to have partial eye opening. 01/23: No significant improvement in neuro exam though opening eyes more with stimulation. Dilantin level coming down today 12.8. Albumin is 1.5 corrected level is about 30 mcg/ml. daughter wants to wait a few more days prior to deciding on trach versus withdrawal. 01/24: No real change in neurologic exam. She does move her right arm spontaneously. Her eyes open but I cannot seem to convince myself that she tracks. Blood pressure well controlled. Unable to wean from ventilator. 01/25: No improvement in neurologic exam. She fails CPAP trials when breathing spontaneously and will likely need a tracheostomy. I will discuss with the palliative care service whether the family would like to pursue the trach and PEG route. 01/26: Remains without suitable response to stimulation. Apneic episodes while on spontaneous breathing trials. 01/27: Her eyes are more widely open today. She clearly tracks motion around the room and appears to respond to questions. She moves her right arm and hand weakly to command. This is considerable improvement from yesterday. She remains very weak on spontaneous breathing trials requiring 17 cm water of pressure support. 01/28: Again today she opens her eyes spontaneously intends to track with her eyes. Her respiratory effort remains weak but she has improved stamina over the past 48 hours. I think she would recognize her family at this point. We await their decision on whether to proceed with tracheostomy. 01/29: A little more lethargic today. She opens her eyes but not with the alertness of yesterday. She failed CPAP trials again today and less quite high pressure support is used. The daughter Kaci would like to proceed with tracheostomy despite the fact that recovery may be limited. 01/30: Patient continued to have inadequate tidal volumes during attempted spontaneous breathing trials this morning. Per daughter's wishes we proceeded with the placement of a tracheostomy. The woman required some sedation for this procedure and we anticipate that it may take a day or so for her to recover completely from the analgesia and sedation. Objective Vital Signs / I&O: Vital Signs 01/29/18 16:00 01/29/18 16:14 01/29/18 18:00 Temperature 98.4 F Pulse Rate 71 74 Respiratory Rate 14 19 Blood Pressure 116/58 L Pulse Oximetry 100 01/29/18 20:00 01/29/18 21:06 01/29/18 22:00 Temperature 99.0 F Pulse Rate 68 63 Respiratory Rate 14 19 Blood Pressure 119/62 Pulse Oximetry 100 01/30/18 00:00 01/30/18 00:56 01/30/18 02:00 Temperature 99.0 F Pulse Rate 53 L 81 Respiratory Rate 14 14 Blood Pressure 115/57 L Pulse Oximetry 01/30/18 04:00 01/30/18 04:22 01/30/18 06:00 Temperature 98.8 F Pulse Rate 81 79 Respiratory Rate 14 15 Blood Pressure 115/68 Pulse Oximetry 100 01/30/18 07:57 01/30/18 13:08 Temperature Pulse Rate Respiratory Rate 14 Blood Pressure Pulse Oximetry 100 100 Intake & Output 01/29/18 01/30/18 01/30/18 18:59 06:59 18:59 Intake Total 871 / 871 485 / 485 Output Total 1000 / 1000 400 / 400 Balance -129 / -129 85 / 85 Weight 67.5 kg Intake: IV 100 / 100 200 / 200 Merrem Inj 1,000 MG In NS Inj 100 / 100 200 / 200 100 ML @ 200 mls/hr IV.SIG Q8H [facility] Rx#:[id number] Oral 0 / 0 Tube Feeding 721 / 721 225 / 225 Tube Irrigant 50 / 50 60 / 60 Output: Urine Amount (Catheter) 1000 / 1000 400 / 400 Indwelling Temp Sensing 1000 / 1000 400 / 400 Catheter Other: Date of Last Bowel Movement 01/29/18 01/29/18 # Bowel Movements 0 # Incontinent Bowel Movements 0 Result Diagrams: 01/24/18 02:45 01/29/18 03:47 Objective Remarks: GEN: frail elderly female, lying in bed, spontaneous eye opening. HEENT: pupils are 2 mm, equal, reactive. mucous membranes moist. Neck: trachea midline. Orally intubated. Chest: intubated. Ventilator dependent. Equal chest rise. No adventitious sounds. CV: normal rate, regular rhythm. No JVD. GI: soft, nontender, nondistended. no guarding. EXT: Tepid, poorly perfused. 1+ edema. Neuro: Spontaneous eye opening. Spontaneously moving right upper extremity. Withdraws bilateral lower extremities to noxious stimulation. Left upper extremity is flaccid. +cough. +gag. Tracks with eyes again today. Considerable improvement over the past 24 hours. Assessment and Plan - Assessment and Plan Plan: Assessment: 87yF with acute CVA and now s/p cardiac arrest overlying significant comorbid medical conditions. Poor prognosis. unlikely to have any long-term functional recovery. Discussed with daughter Kaci. ESBL E Coli UTI. Acute hypoxic and Hypercarbic Respiratory failure -Hypercapnic and hypoxemic respiratory failure -Poor baseline mental status, Large right CVA -Not Tolerating CPAP, apneic -She will need tracheostomy for airway protection, if family requests continued aggressive care -Tracheostomy tube placed 01/30. Acute CVA Metabolic encephalopathy Probable anoxic brain injury -New ischemic infarct while on anticoagulation -High risk for hemorrhagic conversion due to size of the stroke, No anticoagulation recommended -Further management per neurology, Dr. Carolina, overall prognosis poor per Dr. Carolina -Sepsis and Dilantin toxicity may be contributing to altered mental status Cardiogenic shock -resolved s/p PEA arrest -Remains off all pressors -Monitor heart rate blood pressure closely Seizure disorder Dilantin toxicity -Dilantin level supratherapeutic. Holding Dilantin, uncorrected Dilantin level is 12.8, albumin corrected level is 32. -Further management per neurology. -EEG ordered by primary service-shows moderate encephalopathy UTI /ESBL E. coli -Rocephin 01/07-01/11 -Urine culture ESBL E. coli, restarted Rocephin 01/20/2018, DCd and start Meropenem 01/21/18 -Started on Fluconazole 01/12 (to continue for a total of 14 days) Clostridium difficile diarrhea -Vancomycin per G-tube 125 mg 4 times daily completed 01/18. Repeat C. difficile test due to diarrhea, negative -Lactobacillus given to assist with gut rod DVT GI prophylaxis -Teds SCDs -Subcu heparin -Pepcid Overall impression: Critically ill following a cardiac arrest. Her neurologic status remains severely impaired as is her overall prognosis. We recommended against tracheostomy however we will proceed according to family wishes. Daughter Kaci wants to wait over the weekend to see any neuro improvement, she does not want to place a tracheostomy if there is no neurological improvement. Palliative care is following. Today tolerated CPAP for a brief period of time but required termination due to apneic episodes. Tracking with her eyes today is an improvement but she is still considerably impaired and it does not appear that were going to be able to get her off the ventilator anytime soon. Her Dilantin toxicity may well have played some role in her prolonged somnolence. Will now work toward disposition to LTAC versus rehab.
--- NOTE | 2018-01-30 15:04 | XR ---
EXAM DATE: 01/30/2018 2:59 PM EDT AGE/SEX: 87 years / Female INDICATIONS: S/P tracheostomy. CLINICAL DATA: This is the patient's initial encounter. Patient reports that signs and symptoms have been present for 1 day and indicates a pain score of Nonresponsive. MEDICAL/SURGICAL HISTORY: . Hypertension. Congestive heart failure. CVA. Left sided weakness. D ementia. Seizures. Arthritis. . Hysterectomy. Cervical fusion. Right hip replacement. COMPARISON: [facility] – [place], CHEST 1V SINGLE AP, 01/17/2018. . FINDINGS: Tracheostomy tube is present in satisfactory position. Left subclavian pacer wires are present with t ips in the right atrium and right ventricle. Left lung base opacity is present may be due to a combi nation of consolidation and or pleural effusion. Slight cardiomegaly and perivascular pulmonary beverly a is also seen. CONCLUSION: Left lung base opacity is present may be due to a combination of consolidation and or pleural effusio n, mild pulmonary edema suspected as well. Electronically signed by: Saleem Sanchez MD 01/30/2018 3:02 PM EDT
[2018-01-31 05:09] LABS: Baso # (Auto) 0.1 th/mm3 (0.0-0.2); Baso % (Auto) 1.4 % (0.0-2.0); Eos # (Auto) 0.1 th/mm3 (0.0-0.4); Eos % (Auto) 3.2 % (0.0-4.0); Hematocrit 27.8 % (35.0-46.0); Hemoglobin 9.3 gm/dL (11.6-15.3); Lymph # (Auto) 1.7 th/mm3 (1.0-4.8); Mean Corpuscular HGB Conc 33.6 % (32.0-36.0); Mean Corpuscular Hemoglobin 30.9 pg (27.0-34.0); Mean Platelet Volume 7.9 fL (7.0-11.0); Mono # (Auto) 0.7 th/mm3 (0.0-0.9); Mono % (Auto) 16.2 % (0.0-8.0); Neut % (Auto) 43.2 % (16.0-70.0); Platelet Count 431 th/mm3 (150-450); Red Blood Count 3.02 mil/mm3 (4.00-5.30); Red Cell Distribution Width 15.1 % (11.6-17.2); White Blood Count 4.6 th/mm3 (4.0-11.0)
[2018-01-31] MEDS: Aspirin 325 MG Tablet G-TUBE SCH (09:01)
[2018-01-31] MEDS: Divalproex 125 MG Sprinkles Capsule G-TUBE SCH ×2 (09:02→22:14)
[2018-01-31] MEDS: Collagenase Oint 30 GM Tube TOPICAL SCH (09:03)
[2018-01-31] MEDS: Potassium Chloride 20 MEQ Pwd Pkt G-TUBE SCH (09:04)
[2018-01-31] MEDS ORDERED: Dextrose 50% in Water 50 ML Vial IV.PUSH PRN (10:32)
--- NOTE | 2018-01-31 10:40 | P.PNCC ---
Subjective Subjective Remarks/Hospital Course: 87 year old female admitted initially for evaluation of a witnessed seizure. The patient is long-term resident with multiple medical issues, including history of seizures on Keppra. Per chart review her baseline is alert, confused , and often combative at a long-term. She is verbal. She is able to feed herself; she consumes a pureed, nectar-thick diet. She spends most of her time in chair, with limited mobility. She was admitted to [facility] in December 18 for the above, while in the hospital she developed right MCA stroke with significant damage of almost entire right hemisphere. The patient's daughter is a ICU nurse at outside of [facility] facility , who is requesting to continue aggressive management. Today early in the morning the patient developed respiratory arrest flowed by a cardiac arrest requiring multiple cycles of CPR and epinephrine injections. The initial rhythm was PEA versus asystolic. After approximately 15 minutes of CPR the patient regained spontaneous circulation. She was intubated just prior to arrest, and later central line and A-line was used due to hemodynamic instability. The patient's daughter was called during the CPR and again requested full code and aggressive management. 01/16 1000 hrs: Gas exchange now acceptable and pH problems have been corrected with ventilator manipulations. The etiology of the rest appears to have been a hypercapnic respiratory acidosis superimposed on a large dominant hemisphere acute stroke. Chest x-ray reviewed tubes and lines in good position. Cardiac rhythm appears to be atrial paced. The QRS is wide and I suspect within there somewhere is a sequential ventricular spike although I do not see it on the monitor. Potassium was elevated at 5.8 we will follow that closely. At present she is requiring 8 mcg/min of epinephrine and urine output has been about 40 mL's. Patient remains critically ill. 01/17: no improvements. severely encephalopathic. remains on epinephrine, although digits are now dusky and our vasopressors may be causing more harm than any improvements at this point. will be forced to use ivf for perfusion instead of epinephrine. I was unable to reach family today, though the family medicine service updated the family and they press on for aggressive measures. unlikely to have any meaningful recovery given large stroke superimposed on baseline poor functionality. 01/18: Remains lethargic but opens eyes to painful stimuli. Involuntarily grasped with the right hand. Left upper extremity is flaccid but withdraws bilateral lower extremity. Dilantin level was elevated on 01/16/2016 will recheck level today and tomorrow morning. Discussed in detail with daughter Kaci 01/19: Neuro exam remains unchanged no improvement in encephalopathy. Dilantin level remains elevated at 24.5, albumin corrected will be much higher. Updated daughter Kaci, she will meet with palliative care today 01/20: Patient is still obtunded encephalopathy. Dilantin level further down 20.3. No seizures. Family at this time wants to continue aggressive care. Patient remains hemodynamically more stable. Urine culture growing gram- negative rods started on Rocephin 01/21: Neuro status remains unchanged remains obtunded encephalopathic. Dilantin level improved to 16.2 today. Urine culture growing ESBL E. coli. Rocephin was discontinued, started on meropenem 1 g IV every 8 hours 01/22: Patient remains intubated remains completely off all sedation for several days. Dilantin level down to 14.2 uncorrected. Slightly more responsive to painful stimuli, continues to have partial eye opening. 01/23: No significant improvement in neuro exam though opening eyes more with stimulation. Dilantin level coming down today 12.8. Albumin is 1.5 corrected level is about 30 mcg/ml. daughter wants to wait a few more days prior to deciding on trach versus withdrawal. 01/24: No real change in neurologic exam. She does move her right arm spontaneously. Her eyes open but I cannot seem to convince myself that she tracks. Blood pressure well controlled. Unable to wean from ventilator. 01/25: No improvement in neurologic exam. She fails CPAP trials when breathing spontaneously and will likely need a tracheostomy. I will discuss with the palliative care service whether the family would like to pursue the trach and PEG route. 01/26: Remains without suitable response to stimulation. Apneic episodes while on spontaneous breathing trials. 01/27: Her eyes are more widely open today. She clearly tracks motion around the room and appears to respond to questions. She moves her right arm and hand weakly to command. This is considerable improvement from yesterday. She remains very weak on spontaneous breathing trials requiring 17 cm water of pressure support. 01/28: Again today she opens her eyes spontaneously intends to track with her eyes. Her respiratory effort remains weak but she has improved stamina over the past 48 hours. I think she would recognize her family at this point. We await their decision on whether to proceed with tracheostomy. 01/29: A little more lethargic today. She opens her eyes but not with the alertness of yesterday. She failed CPAP trials again today and less quite high pressure support is used. The daughter Kaci would like to proceed with tracheostomy despite the fact that recovery may be limited. 01/30: Patient continued to have inadequate tidal volumes during attempted spontaneous breathing trials this morning. Per daughter's wishes we proceeded with the placement of a tracheostomy. The woman required some sedation for this procedure and we anticipate that it may take a day or so for her to recover completely from the analgesia and sedation. SUBJECTIVE: 01/31: Currently on PSV trial 06/08 at 35% arousable. Will inadvertently squeeze right upper extremity only at the present time. Tube feeds will be changed to Glucerna 1.5 per nutrition's recommendations at 50 cc an hour Objective Vital Signs / I&O: Vital Signs 01/30/18 12:00 01/30/18 13:08 01/30/18 14:00 Temperature 98.6 F Pulse Rate 62 64 Respiratory Rate 14 Blood Pressure 124/67 Pulse Oximetry 100 100 01/30/18 16:00 01/30/18 16:05 01/30/18 18:00 Temperature 98.1 F Pulse Rate 68 72 Respiratory Rate 14 14 Blood Pressure 124/60 Pulse Oximetry 100 100 01/30/18 19:50 01/30/18 20:00 01/30/18 22:00 Temperature 98.8 F Pulse Rate 74 67 Respiratory Rate 14 14 Blood Pressure 143/79 H Pulse Oximetry 100 100 01/30/18 22:58 01/31/18 00:00 01/31/18 02:00 Temperature 98.4 F Pulse Rate 73 72 Respiratory Rate 14 15 Blood Pressure 135/85 Pulse Oximetry 100 100 01/31/18 02:02 01/31/18 04:00 01/31/18 06:00 Temperature 99 F Pulse Rate 65 77 Respiratory Rate 15 14 Blood Pressure 134/63 Pulse Oximetry 100 100 01/31/18 06:07 01/31/18 08:00 01/31/18 10:00 Temperature 99.1 F Pulse Rate 72 74 Respiratory Rate 14 14 Blood Pressure 138/73 Pulse Oximetry 100 100 Intake & Output 01/30/18 01/31/18 01/31/18 18:59 06:59 18:59 Intake Total 495 / 495 936 / 936 Output Total 1100 / 1100 375 / 375 Balance -605 / -605 561 / 561 Weight 67.5 kg Intake: IV 100 / 100 200 / 200 Merrem Inj 1,000 MG In NS Inj 100 / 100 200 / 200 100 ML @ 200 mls/hr IV.SIG Q8H CARMEN Rx#:[id number] Tube Feeding 345 / 345 616 / 616 Tube Irrigant 50 / 50 Water Bolus Amount 120 / 120 Output: Urine Amount (Catheter) 1100 / 1100 375 / 375 Indwelling Temp Sensing 1100 / 1100 375 / 375 Catheter Other: Date of Last Bowel Movement 01/30/18 01/31/18 01/31/18 # Bowel Movements 1 5 # Incontinent Bowel Movements 5 Result Diagrams: 01/31/18 04:42 01/29/18 03:47 Other Results: Microbiology 01/18/18 16:20 Catheterized Urine Urine Culture - Final Escherichia coli ESBL positive 01/08/18 22:04 Blood - Peripheral Aerobic Blood Culture - Final No growth in 5 days 01/08/18 22:04 Blood - Peripheral Anaerobic Blood Culture - Final No growth in 5 days 01/08/18 22:04 Blood - Peripheral Aerobic Blood Culture - Final No growth in 5 days 01/08/18 22:04 Blood - Peripheral Anaerobic Blood Culture - Final No growth in 5 days 01/08/18 17:10 Catheterized Urine Urine Culture - Final Fern albicans 01/03/18 00:30 Catheterized Urine Urine Culture - Final No growth in 48 hours Imaging: Chest X-Ray 01/02/18 00:00 CONCLUSION: 1. Bibasilar haziness consistent with atelectasis and/or mild infiltrates. 2. Cardiomegaly. 3. Degenerative changes and scoliosis of the thoracic spine. Head CT 01/03/18 00:00 CONCLUSION: 1. New large nonhemorrhagic infarct involving the right MCA territory 2. 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 Chest X-Ray 01/07/18 00:00 CONCLUSION: No focal or acute pulmonary infiltrates. No significant changes compared to the prior exam. Head CT 01/08/18 00:00 CONCLUSION: 1. Large evolving infarct on the right slight increase in swelling in effacement of the right lateral ventricle but without significant midline shift. Remote left cerebellar infarct. Chest X-Ray 01/12/18 00:00 CONCLUSION: Moderate consolidative changes left base that have progressed in the interval with some trace bronchograms. Head CT 01/13/18 00:00 CONCLUSION: 1. Continued evolution of right middle cerebral artery distribution infarct without evidence of acute hemorrhage Chest X-Ray 01/16/18 03:17 CONCLUSION: Interval intubation and right neck central line placement without complication. Stable infiltrates and effusions. Chest X-Ray 01/17/18 04:00 CONCLUSION: Cardiomegaly with basilar airspace consolidation and small effusions similar to January 16. Head CT 01/19/18 00:00 CONCLUSION: 1. Stable appearance to the right MCA infarction; no evidence of acute blood products or mass effect. Chest X-Ray 01/30/18 00:00 CONCLUSION: Left lung base opacity is present may be due to a combination of consolidation and or pleural effusion, mild pulmonary edema suspected as well. Objective Remarks: GEN: 87-year-old frail elderly female, lying in bed, spontaneous eye opening. HEENT: pupils are 2 mm, equal, reactive. mucous membranes moist. Neck: trachea midline. Tracheostomy site is clean dry and intact orally intubated. Chest: intubated. Ventilator dependent. Equal chest rise. No adventitious sounds. CV: normal rate, regular rhythm. No JVD. GI: soft, nontender, nondistended. no guarding. EXT: Tepid, poorly perfused. 1+ edema. Neuro: Spontaneous eye opening. Spontaneously moving right upper extremity. Withdraws bilateral lower extremities to noxious stimulation. Left upper extremity is flaccid. +cough. +gag. Tracks with eyes again today SKIN: - Sacral DTI. 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 Carolina, overall prognosis poor per Dr. Carolina Currently on aspirin 325 mg by tube daily. Switch to aspirin chew 324 daily --Sepsis and phenytoin toxicity may be contributing to altered mental status Currently on Depakote 500 mg twice daily. Check level in a.m. 02/01 Holding home medications gabapentin 100 mg twice daily. Holding hydrocodone/acetaminophen 7.5/325 1 tablet every 8 hours. Holding acetaminophen 650 mg by tube every 6 hours scheduled. Home medication Document acetaminophen above. Patient is on scheduled acetaminophen and hydrocodone/acetaminophen at home. Holding phenytoin levetiracetam and mirtazapine/home medications. CV: Essential hypertension Coronary artery disease Mild pulmonary hypertension Chronic diastolic heart failure History of SSS 2D echocardiogram 2005 revealed EF 50%. Moderate TR. PAP 50 mmHg Continue carvedilol 3.125 mg p.o. twice daily/home medication Continue furosemide 20 mg by tube daily Currently hemodynamically stable not requiring vasopressors and/or antihypertensives Resp: Ventilator dependent respiratory failure Status post percutaneous tracheostomy by Dr. Burden 01/30 PSV 12/5 at 35% Ventilator bundle Albuterol/ipratropium aerosols every 4 hours with albuterol aerosols every 2 hours as needed dyspnea GI: Gastroesophageal reflux disease Chronic constipation Glucerna 1.5 at 50 cc an hour per nutrition recommendation with free water 100 cc every 6 hours Lansoprazole for GI prophylaxis. On omeprazole 20 mg daily at home. Docusate sodium/senna 1 tablet twice daily for bowel regimen. Patient is on polythene glycol 17 g daily at the long-term. : Ruiz catheter placed for accurate I's and O's in a critically ill patient Remove per nursing protocol Endo: Sliding's scale insulin with aspart and with Accu-Cheks every 6 hours to maintain euglycemia/low regimen Renal: Creatinine currently within normal limits Monitor urine output Accurate I's and O's Heme: History of chronic apixaban use 2.5 mg twice daily Normocytic anemia Monitor CBC daily. Follow trends. No systemic anticoagulation per above ID: ESBL positive E. coli UTI History of Fern funguria 01/08 Treated C. difficile Complete 14 days therapy with meropenem stop date 02/03 Monitor for signs and symptomatology infection. Follow trends Ceftriaxone 01/07-01/11 -Urine culture ESBL E. coli, restarted ceftriaxone 01/20/2018, DCd and start Meropenem 01/21/18 -Started on Fluconazole 01/12 (completed a total of 14 days) MSK: Sacral DTI Wound care evaluate and treat. Central FEN: Replace electrolytes as clinically indicated per ICU electrolyte protocol Access -Utilize peripheral IV. Central line if indicated Prophylaxis -GI -pantoprazole -DVT -SCD/heparin subcu Level 3 follow-up
--- NOTE | 2018-01-31 12:10 | P.PNPAL ---
Reason for Visit Reason for visit: a. To assist with evaluation and management of symptoms including: encephalopathy, dyspnea. b. To assist medical decision maker(s) with: better understanding of current medical conditions; weighing benefits/burdens of medical treatment options; making medical treatment decisions. . Subjective Subjective/Interval History: Patient is an 87 [facility] old [facility] who presented to [facility] ED on 12/18/2017 with altered mental status after a witnessed seizure. Patient seen and examined in ICU. No family at bedside. Tracheostomy placed 01/30. Patient remains on mech vent via trach. Patient awakens easily to voice. She appears to track. She does not follow commands for me. She withdraws to pain bilateral LEs. No movement noted in left UE, left arm edema noted. Labs and vital signs stable. Discussed with primary nurse and Dr. Sexton. Family/Friend Interactions: Palliative care number previously provided. Advance Directives Health Care Surrogate: Copy in medical record Durable Power of Safety Instructor: Copy in medical record Advance Directives Date on File: 12/20/17 Health Care Surrogate Name and Number: Kaci Koenig (primary):[phone] Alt HCS : Connie Hector (alternate): Significant change in goals:: Goals remain aggressive in hopes for continued neuro recovery. Will need LTAC vs. [facility] continuous churn care placement. Objective Vital Signs: Vital Signs 01/30/18 13:08 01/30/18 14:00 01/30/18 16:00 Temperature 98.1 F Pulse Rate 64 68 Respiratory Rate 14 Blood Pressure 124/60 Pulse Oximetry 100 100 01/30/18 16:05 01/30/18 18:00 01/30/18 19:50 Temperature Pulse Rate 72 Respiratory Rate 14 14 Blood Pressure Pulse Oximetry 100 100 01/30/18 20:00 01/30/18 22:00 01/30/18 22:58 Temperature 98.8 F Pulse Rate 74 67 Respiratory Rate 14 14 Blood Pressure 143/79 H Pulse Oximetry 100 100 01/31/18 00:00 01/31/18 02:00 01/31/18 02:02 Temperature 98.4 F Pulse Rate 73 72 Respiratory Rate 15 15 Blood Pressure 135/85 Pulse Oximetry 100 100 01/31/18 04:00 01/31/18 06:00 01/31/18 06:07 Temperature 99 F Pulse Rate 65 77 Respiratory Rate 14 14 Blood Pressure 134/63 Pulse Oximetry 100 100 01/31/18 08:00 01/31/18 10:00 Temperature 99.1 F Pulse Rate 72 74 Respiratory Rate 14 Blood Pressure 138/73 Pulse Oximetry 100 Intake & Output 01/30/18 01/31/18 01/31/18 18:59 06:59 18:59 Intake Total 495 / 495 936 / 936 Output Total 1100 / 1100 375 / 375 Balance -605 / -605 561 / 561 Weight 67.5 kg Intake: IV 100 / 100 200 / 200 Merrem Inj 1,000 MG In NS Inj 100 / 100 200 / 200 100 ML @ 200 mls/hr IV.SIG Q8H CARMEN Rx#:[id number] Tube Feeding 345 / 345 616 / 616 Tube Irrigant 50 / 50 Water Bolus Amount 120 / 120 Output: Urine Amount (Catheter) 1100 / 1100 375 / 375 Indwelling Temp Sensing 1100 / 1100 375 / 375 Catheter Other: Date of Last Bowel Movement 01/30/18 01/31/18 01/31/18 # Bowel Movements 1 5 # Incontinent Bowel Movements 5 Physical Exam: CONSTITUTIONAL/GENERAL: This is a frail, elderly female in no acute distress. TUBES/LINES/DRAINS: ETT, PIV right upper extremity, PEG tube SKIN: Skin is thin and fragile. Skin warm and dry. Left upper extremity with significant edema. EYES: pupils equal. CARDIOVASCULAR: RRR RESPIRATORY/CHEST: Symmetric, unlabored respirations on vent. clear. GASTROINTESTINAL: Abdomen soft, nondistended.no palpable masses. No apparent tenderness. Bowel sounds normoactive. GENITOURINARY: Without palpable bladder distension. MUSCULOSKELETAL: Extremities with edema, > LUE. NEUROLOGICAL: Opens eyes to voice/touch. Appears to be tracking. Withdraws to painful stimuli slightly bilateral lower extremities. No purposeful movements noted. Rt upper moves spontaneously. No movement LUE. PSYCHIATRIC: no apparent anxiety, limited assess . Diagnostic Tests Laboratory: Laboratory Results - last 72 hr 01/29/18 01/31/18 01/31/18 03:47 04:42 11:38 WBC 4.6 RBC 3.02 L Hgb 9.3 L Hct 27.8 L MCV 92.0 MCH 30.9 MCHC 33.6 RDW 15.1 Plt Count 431 D MPV 7.9 Neut % (Auto) 43.2 Lymph % (Auto) 36.0 [place] % (Auto) 16.2 H Eos % (Auto) 3.2 Baso % (Auto) 1.4 Neut # (Auto) 2.0 Lymph # (Auto) 1.7 [place] # (Auto) 0.7 Eos # (Auto) 0.1 Baso # (Auto) 0.1 WBC Differential . Differential Comment Auto diff final Sodium 137 Potassium 4.4 Chloride 103 Carbon Dioxide 30.7 Anion Gap 3 L BUN 19 H Creatinine 0.32 L Estimated GFR Greater than 89 POC Glucose 137 H Random Glucose 149 H Calcium 8.0 L Result Diagrams: 01/31/18 04:42 01/29/18 03:47 Imaging: Head CT 01/19/18 00:00 CONCLUSION: 1. Stable appearance to the right MCA infarction; no evidence of acute blood products or mass effect. Chest X-Ray 01/30/18 00:00 CONCLUSION: Left lung base opacity is present may be due to a combination of consolidation and or pleural effusion, mild pulmonary edema suspected as well. Procedures: * Tracheostomy * PEG tube Assessment and Plan Pertinent Non-Medical Issues: Psychosocial: Patient is . She has a high school education but is now retired. Patient has 6 children. Patient currently resides at [facility] in [place]. Spiritual: Jewish mira Legal: A healthcare surrogate designation form was completed on 05/06/2017 and designates Kaci Koenig as the primary healthcare surrogate decision-maker. Connie Hector is designated as the alternate healthcare surrogate decision maker. Ethical issues impacting care: No known ethical issues impacting care at this time. Important Contacts: * Kaci Koenig - Health Care Surrogate: [phone] (C) * Connie Jung - Power of Safety Instructor/alternate [facility]: [phone] (C) * Alexia Kahn - Son: [phone] (C) or [phone] (H) Prognosis: Patient is a frail 87-year-old female with a complex medical history who was admitted following a witnessed seizure status post PEG tube placement. Unfortunately, placement of a PEG tube will not improve this patient's quality of life or functional status. Given patient's advanced age, multiple comorbid conditions in addition to her acute decline, she will remain high risk for ongoing setbacks and complications. Code Status: Full Code Plan: * Decision-making: Patient does not have insight or judgment related to her current medical conditions; it is unlikely that she will regain capacity. A healthcare surrogate designation form was completed on 05/06/2017 and designates Kaci Koenig as the primary healthcare surrogate decision-maker. Connie Hector is designated as the alternate healthcare surrogate decision maker. * FULL CODE * Goals remain aggressive in hopes for continued neuro recovery. Will need LTAC vs [facility] continuous churn placement. * Symptom management: = Encephalopathy: Multifactorial. Contributing factors may metabolic encephalopathy, seizures, CVA, dementia. Patient admitted for evaluation and management of seizures vs. CVA. Patient has a history of previous CVA 2 with residual left-sided weakness. Dilantin level now 13.3. Improving. = Dysphasia: Patient has failed multiple swallow studies. (hx CVAs, dementia ) Status post PEG tube placement on 12/30/2017. = Dyspnea: on mech vent, not tolerating CPAP/weaning. Family has elected to proceed with trach. * Per case management note, patient does not have any more Medicare days and therefore she cannot be transferred to a facility in [place]. Patient has [place] Medicaid; she was previously residing at [facility] and has been accepted back to that facility. Family considering options; they are willing to send the patient back to [facility] if there is no other alternative. * Palliative care will continue to follow during hospital course as condition evolves, to assist patient/decision-maker with understanding of medical conditions, weighing benefits/burdens of treatment options, for clarification of goals of treatment. Additionally will assist with any symptoms of palliative concern Attestation Attestation: To help prompt me to consider important information that might be impacting today's encounter and assessment, information from prior notes written by myself or my colleagues may have been "brought forward" into today's note. My signature on this note, however, is an attestation that I personally performed the exam, history, and/or decision-making noted today, and, unless otherwise indicated, the interactions with patient, family, and staff as well as the review of records all occurred today. I also attest that the listed assessment and stated plan reflect my best clinical judgment today based on the combination of historical information, prior notes, and today's exam/ interactions. When time spent is documented, it refers only to time spent today by the signer, or if indicated, combined time spent today by collaborating physician/nurse practitioner.
[2018-01-31] MEDS: Insulin NovoLOG Aspart Correctional Sugar Inj SQ SCH ×2 (12:40→17:25)
[2018-01-31] MEDS: Heparin - SQ 10,000 UNITS/ML Vial SQ SCH (22:14)
[2018-01-31] MEDS: Hypromellose 0.3% Opth Gel 10 GM Bottle EACH EYE SCH (22:15)
[2018-02-01] MEDS: Insulin NovoLOG Aspart Correctional Sugar Inj SQ SCH ×4 (01:12→18:23)
[2018-02-01 04:52] LABS: Baso # (Auto) 0.1 th/mm3 (0.0-0.2); Baso % (Auto) 1.3 % (0.0-2.0); Eos # (Auto) 0.2 th/mm3 (0.0-0.4); Eos % (Auto) 4.3 % (0.0-4.0); Hematocrit 27.9 % (35.0-46.0); Hemoglobin 9.2 gm/dL (11.6-15.3); Lymph # (Auto) 1.7 th/mm3 (1.0-4.8); Lymph % (Auto) 42.6 % (9.0-44.0); Mean Corpuscular HGB Conc 33.1 % (32.0-36.0); Mean Corpuscular Hemoglobin 30.3 pg (27.0-34.0); Mean Corpuscular Volume 91.5 fL (80.0-100.0); Mean Platelet Volume 7.4 fL (7.0-11.0); Mono # (Auto) 0.7 th/mm3 (0.0-0.9); Mono % (Auto) 16.7 % (0.0-8.0); Neut # (Auto) 1.4 th/mm3 (1.8-7.7); Neut % (Auto) 35.1 % (16.0-70.0); Platelet Count 465 th/mm3 (150-450); Red Blood Count 3.04 mil/mm3 (4.00-5.30); Red Cell Distribution Width 15.3 % (11.6-17.2)
[2018-02-01 05:14] LABS: Albumin 1.6 g/dL (3.4-5.0); Anion Gap 5 meq/L (5-15); Aspartate Aminotransferase 102 U/L (15-37); Blood Urea Nitrogen 16 mg/dL (7-18); Calcium 8.1 mg/dL (8.5-10.1); Carbon Dioxide 30.2 meq/L (21.0-32.0); Chloride 103 meq/L (98-107); Glomerular Filtration Rate Greater Than 89 mL/min (>89); Glucose,Random 149 mg/dL (74-106); Magnesium 1.8 mg/dL (1.5-2.5); Potassium 3.9 meq/L (3.5-5.1); Sodium 138 meq/L (136-145)
[2018-02-01 05:15] LABS: Alanine Aminotransferase 53 U/L (10-53); Phosphorus 1.8 mg/dL (2.5-4.9)
[2018-02-01 05:17] LABS: Alkaline Phosphatase 184 U/L (45-117); Total Protein 5.8 g/dL (6.4-8.2); Valproic Acid 14 mcg/mL (50-100)
--- NOTE | 2018-02-01 09:14 | P.PNCC ---
Subjective Subjective Remarks/Hospital Course: 87 year old female admitted initially for evaluation of a witnessed seizure. The patient is [facility] resident with multiple medical issues, including history of seizures on Keppra. Per chart review her baseline is alert, confused , and often combative at a [facility]. She is verbal. She is able to feed herself; she consumes a pureed, nectar-thick diet. She spends most of her time in chair, with limited mobility. She was admitted to [place] in December 18 for the above, while in the hospital she developed right MCA stroke with significant damage of almost entire right hemisphere. The patient's daughter is a ICU nurse at outside of [facility] , who is requesting to continue aggressive management. Today early in the morning the patient developed respiratory arrest flowed by a cardiac arrest requiring multiple cycles of CPR and epinephrine injections. The initial rhythm was PEA versus asystolic. After approximately 15 minutes of CPR the patient regained spontaneous circulation. She was intubated just prior to arrest, and later central line and A-line was used due to hemodynamic instability. The patient's daughter was called during the CPR and again requested full code and aggressive management. 01/16 1000 hrs: Gas exchange now acceptable and pH problems have been corrected with ventilator manipulations. The etiology of the rest appears to have been a hypercapnic respiratory acidosis superimposed on a large dominant hemisphere acute stroke. Chest x-ray reviewed tubes and lines in good position. Cardiac rhythm appears to be atrial paced. The QRS is wide and I suspect within there somewhere is a sequential ventricular spike although I do not see it on the monitor. Potassium was elevated at 5.8 we will follow that closely. At present she is requiring 8 mcg/min of epinephrine and urine output has been about 40 mL's. Patient remains critically ill. 01/17: no improvements. severely encephalopathic. remains on epinephrine, although digits are now dusky and our vasopressors may be causing more harm than any improvements at this point. will be forced to use ivf for perfusion instead of epinephrine. I was unable to reach family today, though the family medicine service updated the family and they press on for aggressive measures. unlikely to have any meaningful recovery given large stroke superimposed on baseline poor functionality. 01/18: Remains lethargic but opens eyes to painful stimuli. Involuntarily grasped with the right hand. Left upper extremity is flaccid but withdraws bilateral lower extremity. Dilantin level was elevated on 01/16/2016 will recheck level today and tomorrow morning. Discussed in detail with daughter Kaci 01/19: Neuro exam remains unchanged no improvement in encephalopathy. Dilantin level remains elevated at 24.5, albumin corrected will be much higher. Updated daughter Kaci, she will meet with palliative care today 01/20: Patient is still obtunded encephalopathy. Dilantin level further down 20.3. No seizures. Family at this time wants to continue aggressive care. Patient remains hemodynamically more stable. Urine culture growing gram- negative rods started on Rocephin 01/21: Neuro status remains unchanged remains obtunded encephalopathic. Dilantin level improved to 16.2 today. Urine culture growing ESBL E. coli. Rocephin was discontinued, started on meropenem 1 g IV every 8 hours 01/22: Patient remains intubated remains completely off all sedation for several days. Dilantin level down to 14.2 uncorrected. Slightly more responsive to painful stimuli, continues to have partial eye opening. 01/23: No significant improvement in neuro exam though opening eyes more with stimulation. Dilantin level coming down today 12.8. Albumin is 1.5 corrected level is about 30 mcg/ml. daughter wants to wait a few more days prior to deciding on trach versus withdrawal. 01/24: No real change in neurologic exam. She does move her right arm spontaneously. Her eyes open but I cannot seem to convince myself that she tracks. Blood pressure well controlled. Unable to wean from ventilator. 01/25: No improvement in neurologic exam. She fails CPAP trials when breathing spontaneously and will likely need a tracheostomy. I will discuss with the palliative care service whether the family would like to pursue the trach and PEG route. 01/26: Remains without suitable response to stimulation. Apneic episodes while on spontaneous breathing trials. 01/27: Her eyes are more widely open today. She clearly tracks motion around the room and appears to respond to questions. She moves her right arm and hand weakly to command. This is considerable improvement from yesterday. She remains very weak on spontaneous breathing trials requiring 17 cm water of pressure support. 01/28: Again today she opens her eyes spontaneously intends to track with her eyes. Her respiratory effort remains weak but she has improved stamina over the past 48 hours. I think she would recognize her family at this point. We await their decision on whether to proceed with tracheostomy. 01/29: A little more lethargic today. She opens her eyes but not with the alertness of yesterday. She failed CPAP trials again today and less quite high pressure support is used. The daughter Kaci would like to proceed with tracheostomy despite the fact that recovery may be limited. 01/30: Patient continued to have inadequate tidal volumes during attempted spontaneous breathing trials this morning. Per daughter's wishes we proceeded with the placement of a tracheostomy. The woman required some sedation for this procedure and we anticipate that it may take a day or so for her to recover completely from the analgesia and sedation. SUBJECTIVE: 01/31: Currently on PSV trial 06/08 at 35% arousable. Will inadvertently squeeze right upper extremity only at the present time. Tube feeds will be changed to Glucerna 1.5 per nutrition's recommendations at 50 cc an hour 02/01: Patient remains on CPAP via trach. Not on any sedation. Somnolent but wakes up, tracks today. Not following commands Objective Vital Signs / I&O: Vital Signs 01/31/18 10:00 01/31/18 12:00 01/31/18 12:25 Temperature 98.4 F Pulse Rate 74 66 74 Respiratory Rate 14 13 Blood Pressure 136/63 Pulse Oximetry 100 01/31/18 13:45 01/31/18 14:00 01/31/18 16:00 Temperature 98.2 F Pulse Rate 63 66 Respiratory Rate 14 14 Blood Pressure 125/60 Pulse Oximetry 100 100 01/31/18 18:00 01/31/18 18:14 01/31/18 18:19 Temperature Pulse Rate 66 62 Respiratory Rate 14 14 Blood Pressure Pulse Oximetry 100 01/31/18 20:00 01/31/18 20:49 01/31/18 20:51 Temperature 98.6 F Pulse Rate 64 64 Respiratory Rate 14 17 15 Blood Pressure 129/64 Pulse Oximetry 100 100 01/31/18 22:00 02/01/18 00:00 02/01/18 00:50 Temperature 98.6 F Pulse Rate 75 74 80 Respiratory Rate 18 15 Blood Pressure 115/84 Pulse Oximetry 100 94 L 02/01/18 02:00 02/01/18 03:43 02/01/18 04:00 Temperature 99.3 F Pulse Rate 75 82 78 Respiratory Rate 18 15 Blood Pressure 133/66 Pulse Oximetry 100 100 02/01/18 06:00 02/01/18 08:50 Temperature Pulse Rate 68 71 Respiratory Rate 15 Blood Pressure Pulse Oximetry 100 Intake & Output 01/31/18 02/01/18 02/01/18 18:59 06:59 18:59 Intake Total 940 / 940 925 / 925 Output Total 950 / 950 350 / 350 Balance -10 / -10 575 / 575 Weight 66.6 kg Intake: IV 100 / 100 200 / 200 Merrem Inj 1,000 MG In NS Inj 100 / 100 200 / 200 100 ML @ 200 mls/hr IV.SIG Q8H CARMEN Rx#:[id number] Tube Feeding 640 / 640 565 / 565 Water Bolus Amount 200 / 200 160 / 160 Output: Urine 950 / 950 Urine Amount (Catheter) 350 / 350 Indwelling Temp Sensing 350 / 350 Catheter Other: Date of Last Bowel Movement 01/31/18 02/01/18 # Bowel Movements 3 4 # Incontinent Bowel Movements 4 Result Diagrams: 02/01/18 04:38 02/01/18 04:38 Objective Remarks: GEN: 87-year-old frail elderly female, lying in bed, spontaneous eye opening. HEENT: pupils are 2 mm, equal, reactive. mucous membranes moist. Neck: trachea midline. Tracheostomy site is clean dry and intact orally intubated. Chest: intubated. Equal chest rise. No adventitious sounds. On PSV CV: normal rate, regular rhythm. No JVD. GI: soft, nontender, nondistended. no guarding. EXT: Tepid, poorly perfused. 1+ edema. Neuro: Spontaneous eye opening. Spontaneously moving right upper extremity. Withdraws bilateral lower extremities to noxious stimulation. Left upper extremity is flaccid. +cough. +gag. Tracks with eyes again today SKIN: - Sacral DTI. 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 Carolina, overall prognosis poor per Dr. Carolina Aspirin chew 324 daily --Sepsis and phenytoin toxicity may be contributing to altered mental status Currently on Depakote 500 mg twice daily. Level in a.m. 02/01 is low 14 Holding home medications gabapentin 100 mg twice daily. Holding hydrocodone/acetaminophen 7.5/325 1 tablet every 8 hours. Holding acetaminophen 650 mg by tube every 6 hours scheduled. Home medication Document acetaminophen above. Patient is on scheduled acetaminophen and hydrocodone/acetaminophen at home. Holding phenytoin levetiracetam and mirtazapine/home medications. CV: Essential hypertension Coronary artery disease Mild pulmonary hypertension Chronic diastolic heart failure History of SSS 2D echocardiogram 2005 revealed EF 50%. Moderate TR. PAP 50 mmHg Continue carvedilol 3.125 mg p.o. twice daily/home medication Continue furosemide 20 mg by tube daily Currently hemodynamically stable not requiring vasopressors and/or antihypertensives Resp: Acute and chronic respiratory failure Status post percutaneous tracheostomy by Dr. Burden 01/30 PSV 12/5 at 35%. TP up to 2 hours Ventilator bundle Albuterol/ipratropium aerosols every 4 hours with albuterol aerosols every 2 hours as needed dyspnea GI: Gastroesophageal reflux disease Chronic constipation Glucerna 1.5 at 50 cc an hour per nutrition recommendation with free water 100 cc every 6 hours Lansoprazole for GI prophylaxis. On omeprazole 20 mg daily at home. Docusate sodium/senna 1 tablet twice daily for bowel regimen. Patient is on polythene glycol [facility] g [facility] the [facility]. : Ruiz catheter placed for accurate I's and O's in a critically ill patient Remove per nursing protocol Endo: Sliding's scale insulin with aspart and with Accu-Cheks every 6 hours to maintain euglycemia/low regimen Renal: Creatinine currently within normal limits Monitor urine output Accurate I's and O's Heme: History of chronic apixaban use 2.5 mg twice daily Normocytic anemia Monitor CBC daily. Follow trends. No systemic anticoagulation per above ID: ESBL positive E. coli UTI History of Fern funguria 01/08 Treated C. difficile Complete 14 days therapy with meropenem stop date 02/03 Monitor for signs and symptomatology infection. Follow trends Ceftriaxone 01/07-01/11 -Urine culture ESBL E. coli, restarted ceftriaxone 01/20/2018, DCd and start Meropenem 01/21/18 -Started on Fluconazole 01/12 (completed a total of 14 days) MSK: Sacral DTI Wound care evaluate and treat. Central FEN: Replace electrolytes as clinically indicated per ICU electrolyte protocol Access -Utilize peripheral IV. Central line if indicated Prophylaxis -GI -pantoprazole -DVT -SCD/heparin subcu Level 2 follow-up
[2018-02-01] MEDS: Potassium Chloride 20 MEQ Pwd Pkt G-TUBE SCH (10:23)
[2018-02-01] MEDS: Divalproex 125 MG Sprinkles Capsule G-TUBE SCH ×2 (10:23→20:57)
[2018-02-01] MEDS: Heparin - SQ 10,000 UNITS/ML Vial SQ SCH ×2 (10:23→20:58)
[2018-02-01] MEDS: Furosemide Liq 40 MG/5 ML UDC NG/OG SCH (10:24)
[2018-02-01] MEDS: Collagenase Oint 30 GM Tube TOPICAL SCH (10:24)
[2018-02-01] MEDS: Sodium Phosphate Inj 30 MMOL in Sodium Chlor 0.9% Inj 250 ML IV.SIG PRN (13:13)
[2018-02-01] MEDS: Hypromellose 0.3% Opth Gel 10 GM Bottle EACH EYE SCH (20:57)
[2018-02-02] MEDS: Insulin NovoLOG Aspart Correctional Sugar Inj SQ SCH ×4 (01:57→20:17)
[2018-02-02] MEDS: Divalproex 125 MG Sprinkles Capsule G-TUBE SCH ×2 (09:50→21:18)
[2018-02-02] MEDS: Heparin - SQ 10,000 UNITS/ML Vial SQ SCH ×2 (09:51→21:17)
[2018-02-02] MEDS: Potassium Chloride 20 MEQ Pwd Pkt G-TUBE SCH (09:52)
[2018-02-02] MEDS: Furosemide Liq 40 MG/5 ML UDC NG/OG SCH (09:53)
[2018-02-02] MEDS: Collagenase Oint 30 GM Tube TOPICAL SCH (09:54)
[2018-02-02] MEDS: Multivitamin/Minerals Therapeutic Tablet PO SCH (09:54)
--- NOTE | 2018-02-02 11:12 | P.PNCC ---
Subjective Subjective Remarks/Hospital Course: 87 year old female admitted initially for evaluation of a witnessed seizure. The patient is alf resident with multiple medical issues, including history of seizures on Keppra. Per chart review her baseline is alert, confused , and often combative at a alf. She is verbal. She is able to feed herself; she consumes a pureed, nectar-thick diet. She spends most of her time in chair, with limited mobility. She was admitted to [place] in December 18 for the above, while in the hospital she developed right MCA stroke with significant damage of almost entire right hemisphere. The patient's daughter is a ICU nurse at outside of [facility] , who is requesting to continue aggressive management. Today early in the morning the patient developed respiratory arrest flowed by a cardiac arrest requiring multiple cycles of CPR and epinephrine injections. The initial rhythm was PEA versus asystolic. After approximately 15 minutes of CPR the patient regained spontaneous circulation. She was intubated just prior to arrest, and later central line and A-line was used due to hemodynamic instability. The patient's daughter was called during the CPR and again requested full code and aggressive management. 01/16 1000 hrs: Gas exchange now acceptable and pH problems have been corrected with ventilator manipulations. The etiology of the rest appears to have been a hypercapnic respiratory acidosis superimposed on a large dominant hemisphere acute stroke. Chest x-ray reviewed tubes and lines in good position. Cardiac rhythm appears to be atrial paced. The QRS is wide and I suspect within there somewhere is a sequential ventricular spike although I do not see it on the monitor. Potassium was elevated at 5.8 we will follow that closely. At present she is requiring 8 mcg/min of epinephrine and urine output has been about 40 mL's. Patient remains critically ill. 01/17: no improvements. severely encephalopathic. remains on epinephrine, although digits are now dusky and our vasopressors may be causing more harm than any improvements at this point. will be forced to use ivf for perfusion instead of epinephrine. I was unable to reach family today, though the family medicine service updated the family and they press on for aggressive measures. unlikely to have any meaningful recovery given large stroke superimposed on baseline poor functionality. 01/18: Remains lethargic but opens eyes to painful stimuli. Involuntarily grasped with the right hand. Left upper extremity is flaccid but withdraws bilateral lower extremity. Dilantin level was elevated on 01/16/2016 will recheck level today and tomorrow morning. Discussed in detail with daughter Kaci 01/19: Neuro exam remains unchanged no improvement in encephalopathy. Dilantin level remains elevated at 24.5, albumin corrected will be much higher. Updated daughter Kaci, she will meet with palliative care today 01/20: Patient is still obtunded encephalopathy. Dilantin level further down 20.3. No seizures. Family at this time wants to continue aggressive care. Patient remains hemodynamically more stable. Urine culture growing gram- negative rods started on Rocephin 01/21: Neuro status remains unchanged remains obtunded encephalopathic. Dilantin level improved to 16.2 today. Urine culture growing ESBL E. coli. Rocephin was discontinued, started on meropenem 1 g IV every 8 hours 01/22: Patient remains intubated remains completely off all sedation for several days. Dilantin level down to 14.2 uncorrected. Slightly more responsive to painful stimuli, continues to have partial eye opening. 01/23: No significant improvement in neuro exam though opening eyes more with stimulation. Dilantin level coming down today 12.8. Albumin is 1.5 corrected level is about 30 mcg/ml. daughter wants to wait a few more days prior to deciding on trach versus withdrawal. 01/24: No real change in neurologic exam. She does move her right arm spontaneously. Her eyes open but I cannot seem to convince myself that she tracks. Blood pressure well controlled. Unable to wean from ventilator. 01/25: No improvement in neurologic exam. She fails CPAP trials when breathing spontaneously and will likely need a tracheostomy. I will discuss with the palliative care service whether the family would like to pursue the trach and PEG route. 01/26: Remains without suitable response to stimulation. Apneic episodes while on spontaneous breathing trials. 01/27: Her eyes are more widely open today. She clearly tracks motion around the room and appears to respond to questions. She moves her right arm and hand weakly to command. This is considerable improvement from yesterday. She remains very weak on spontaneous breathing trials requiring 17 cm water of pressure support. 01/28: Again today she opens her eyes spontaneously intends to track with her eyes. Her respiratory effort remains weak but she has improved stamina over the past 48 hours. I think she would recognize her family at this point. We await their decision on whether to proceed with tracheostomy. 01/29: A little more lethargic today. She opens her eyes but not with the alertness of yesterday. She failed CPAP trials again today and less quite high pressure support is used. The daughter Kaci would like to proceed with tracheostomy despite the fact that recovery may be limited. 01/30: Patient continued to have inadequate tidal volumes during attempted spontaneous breathing trials this morning. Per daughter's wishes we proceeded with the placement of a tracheostomy. The woman required some sedation for this procedure and we anticipate that it may take a day or so for her to recover completely from the analgesia and sedation. SUBJECTIVE: 01/31: Currently on PSV trial 06/08 at 35% arousable. Will inadvertently squeeze right upper extremity only at the present time. Tube feeds will be changed to Glucerna 1.5 per nutrition's recommendations at 50 cc an hour 02/01: Patient remains on CPAP via trach. Not on any sedation. Somnolent but wakes up, tracks today. Not following commands 02/02: Tolerating T piece today. Neuro remains unchanged. Opens eyes to stimulation. Increase T piece time to 8-10 hours from today Objective Vital Signs / I&O: Vital Signs 02/01/18 12:00 02/01/18 12:07 02/01/18 14:00 Temperature 99.0 F Pulse Rate 74 81 62 Respiratory Rate 25 H 15 Blood Pressure 119/65 Pulse Oximetry 100 02/01/18 16:00 02/01/18 16:01 02/01/18 18:00 Temperature 98.7 F Pulse Rate 64 69 64 Respiratory Rate 25 H 19 Blood Pressure 110/58 L Pulse Oximetry 100 02/01/18 19:27 02/01/18 20:00 02/01/18 22:00 Temperature 97.9 F Pulse Rate 68 52 L 87 Respiratory Rate 18 19 Blood Pressure 145/70 H Pulse Oximetry 100 100 02/01/18 23:13 02/02/18 00:00 02/02/18 03:01 Temperature 98.2 F Pulse Rate 67 87 69 Respiratory Rate 16 16 20 Blood Pressure 119/76 Pulse Oximetry 02/02/18 04:00 Temperature 98.4 F Pulse Rate 71 Respiratory Rate 21 Blood Pressure 125/58 L Pulse Oximetry 100 Intake & Output 02/01/18 02/02/18 02/02/18 18:59 06:59 18:59 Intake Total 958 / 958 3964 / 3964 Output Total 900 / 900 700 / 700 Balance 58 / 58 3264 / 3264 Weight 67.2 kg Intake: IV 200 / 200 100 / 100 Merrem Inj 1,000 MG In NS Inj 200 / 200 100 / 100 100 ML @ 200 mls/hr IV.SIG Q8H CARMEN Rx#:[id number] Oral 0 / 0 Tube Feeding 508 / 508 627 / 627 Water Bolus Amount 250 / 250 250 / 250 Other 2987 / 2987 Output: Urine 900 / 900 700 / 700 Other: Date of Last Bowel Movement 02/01/18 02/01/18 # Bowel Movements 2 # Incontinent Bowel Movements 2 Result Diagrams: 02/01/18 04:38 02/01/18 04:38 Objective Remarks: GEN: 87-year-old frail elderly female, lying in bed, spontaneous eye opening. HEENT: pupils are 2 mm, equal, reactive. mucous membranes moist. Neck: trachea midline. Tracheostomy site is clean dry Chest: intubated. Equal chest rise. No adventitious sounds. On TPiece CV: normal rate, regular rhythm. No JVD. GI: soft, nontender, nondistended. no guarding. EXT: Tepid, poorly perfused. 1+ edema. Neuro: Spontaneous eye opening. Spontaneously moving right upper extremity. Withdraws bilateral lower extremities to noxious stimulation. Left upper extremity is flaccid. Tracks with eyes SKIN: - Sacral DTI. 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 Carolina, overall prognosis poor per Dr. Carolina -Aspirin chew 324 daily -Sepsis and phenytoin toxicity may be contributing to altered mental status Currently on Depakote 500 mg twice daily. Level in a.m. 02/01 is low 14, but clinically stable Holding home medications gabapentin 100 mg twice daily. Holding hydrocodone/acetaminophen 7.5/325 1 tablet every 8 hours. Holding acetaminophen 650 mg by tube every 6 hours scheduled. Home medication Document acetaminophen above. Patient is on scheduled acetaminophen and hydrocodone/acetaminophen at home. Holding phenytoin levetiracetam and mirtazapine/home medications. CV: Essential hypertension Coronary artery disease Mild pulmonary hypertension Chronic diastolic heart failure History of SSS 2D echocardiogram 2005 revealed EF 50%. Moderate TR. PAP 50 mmHg Continue carvedilol 3.125 mg p.o. twice daily/home medication Continue furosemide 20 mg by tube daily Currently hemodynamically stable not requiring vasopressors and/or antihypertensives Resp: Acute and chronic respiratory failure Status post percutaneous tracheostomy by Dr. Burden 01/30 TP up to 8-10 hours Ventilator bundle Albuterol/ipratropium aerosols every 4 hours with albuterol aerosols every 2 hours as needed dyspnea GI: Gastroesophageal reflux disease Chronic constipation Glucerna 1.5 at 50 cc an hour per nutrition recommendation with free water 100 cc every 6 hours Lansoprazole for GI prophylaxis. On omeprazole 20 mg daily at home. Docusate sodium/senna 1 tablet twice daily for bowel regimen. Patient is on polythene glycol 17 g daily at the alf. : Ruiz catheter placed for accurate I's and O's in a critically ill patient Remove per nursing protocol Endo: Sliding's scale insulin with aspart and with Accu-Cheks every 6 hours to maintain euglycemia/low regimen Renal: Creatinine currently within normal limits Monitor urine output Accurate I's and O's Heme: History of chronic apixaban use 2.5 mg twice daily Normocytic anemia Monitor CBC daily. Follow trends. No systemic anticoagulation per above ID: ESBL positive E. coli UTI History of Fern funguria 01/08 Treated C. difficile Complete 14 days therapy with meropenem stop date 02/03 Monitor for signs and symptomatology infection. Follow trends Ceftriaxone 01/07-01/11 -Urine culture ESBL E. coli, restarted ceftriaxone 01/20/2018, DCd and start Meropenem 01/21/18 -Started on Fluconazole 01/12 (completed a total of 14 days) MSK: Sacral DTI Wound care evaluate and treat. FEN: Replace electrolytes as clinically indicated per ICU electrolyte protocol Access -Utilize peripheral IV. Central line if indicated Prophylaxis -GI -pantoprazole -DVT -SCD/heparin subcu Level 2 follow-up
[2018-02-02 13:12] LABS: ABG PCO2 47 mmHg (38-42); ABG PO2 108 mmHg (61-120)
--- NOTE | 2018-02-02 13:26 | XR ---
EXAM DATE: 02/02/2018 1:15 PM EDT AGE/SEX: 87 years / Female INDICATIONS: Respiratory distress CLINICAL DATA: This is the patient's initial encounter. Patient reports that signs and symptoms have been present for 3 days and indicates a pain score of Nonresponsive. MEDICAL/SURGICAL HISTORY: . Hypertension, CHF, CVA. Left side weakness, dementia, seizure, art hritis . hysterectomy, cervical fusion, right hip replacement. COMPARISON: [facility], CHEST 1V SINGLE AP, 01/30/2018. . FINDINGS: The patient's endotracheal tubes in good position. The heart is enlarged. There is compressive atelectasis in the left lower lobe. There is minimal left basilar effusion. These changes are similar to previous exam of 01/30/2018. The right lung is clear. The visualized bony structures demonstrate degenerative changes within the shoulders but are otherwis e intact. The patient's pacer is unchanged compared to previous exam. CONCLUSION: 1. Cardiomegaly. 2. Left basilar consolidation. 3. Stable compared to previous dated 01/30/2018. Electronically signed by: Abel Plummer MD 02/02/2018 1:25 PM EDT
[2018-02-02] MEDS: Hypromellose 0.3% Opth Gel 10 GM Bottle EACH EYE SCH (21:19)
[2018-02-03] MEDS: Insulin NovoLOG Aspart Correctional Sugar Inj SQ SCH ×4 (02:54→17:53)
[2018-02-03] MEDS: Heparin - SQ 10,000 UNITS/ML Vial SQ SCH ×2 (09:15→20:38)
[2018-02-03] MEDS: Furosemide Liq 40 MG/5 ML UDC NG/OG SCH (09:15)
[2018-02-03] MEDS: Divalproex 125 MG Sprinkles Capsule G-TUBE SCH ×2 (09:16→20:39)
[2018-02-03] MEDS: Multivitamin/Minerals Therapeutic Tablet PO SCH (09:16)
[2018-02-03] MEDS: Collagenase Oint 30 GM Tube TOPICAL SCH (09:18)
--- NOTE | 2018-02-03 09:31 | P.PNCC ---
Subjective Subjective Remarks/Hospital Course: 87 year old female admitted initially for evaluation of a witnessed seizure. The patient is correction resident with multiple medical issues, including history of seizures on Keppra. Per chart review her baseline is alert, confused , and often combative at a correction. She is verbal. She is able to feed herself; she consumes a pureed, nectar-thick diet. She spends most of her time in chair, with limited mobility. She was admitted to [facility] [place] in December 18 for the above, while in the hospital she developed right MCA stroke with significant damage of almost entire right hemisphere. The patient's daughter is a ICU nurse at outside of critical access hospital facility , who is requesting to continue aggressive management. Today early in the morning the patient developed respiratory arrest flowed by a cardiac arrest requiring multiple cycles of CPR and epinephrine injections. The initial rhythm was PEA versus asystolic. After approximately 15 minutes of CPR the patient regained spontaneous circulation. She was intubated just prior to arrest, and later central line and A-line was used due to hemodynamic instability. The patient's daughter was called during the CPR and again requested full code and aggressive management. 01/16 1000 hrs: Gas exchange now acceptable and pH problems have been corrected with ventilator manipulations. The etiology of the rest appears to have been a hypercapnic respiratory acidosis superimposed on a large dominant hemisphere acute stroke. Chest x-ray reviewed tubes and lines in good position. Cardiac rhythm appears to be atrial paced. The QRS is wide and I suspect within there somewhere is a sequential ventricular spike although I do not see it on the monitor. Potassium was elevated at 5.8 we will follow that closely. At present she is requiring 8 mcg/min of epinephrine and urine output has been about 40 mL's. Patient remains critically ill. 01/17: no improvements. severely encephalopathic. remains on epinephrine, although digits are now dusky and our vasopressors may be causing more harm than any improvements at this point. will be forced to use ivf for perfusion instead of epinephrine. I was unable to reach family today, though the family medicine service updated the family and they press on for aggressive measures. unlikely to have any meaningful recovery given large stroke superimposed on baseline poor functionality. 01/18: Remains lethargic but opens eyes to painful stimuli. Involuntarily grasped with the right hand. Left upper extremity is flaccid but withdraws bilateral lower extremity. Dilantin level was elevated on 01/16/2016 will recheck level today and tomorrow morning. Discussed in detail with daughter Kaci 01/19: Neuro exam remains unchanged no improvement in encephalopathy. Dilantin level remains elevated at 24.5, albumin corrected will be much higher. Updated daughter Kaci, she will meet with palliative care today 01/20: Patient is still obtunded encephalopathy. Dilantin level further down 20.3. No seizures. Family at this time wants to continue aggressive care. Patient remains hemodynamically more stable. Urine culture growing gram- negative rods started on Rocephin 01/21: Neuro status remains unchanged remains obtunded encephalopathic. Dilantin level improved to 16.2 today. Urine culture growing ESBL E. coli. Rocephin was discontinued, started on meropenem 1 g IV every 8 hours 01/22: Patient remains intubated remains completely off all sedation for several days. Dilantin level down to 14.2 uncorrected. Slightly more responsive to painful stimuli, continues to have partial eye opening. 01/23: No significant improvement in neuro exam though opening eyes more with stimulation. Dilantin level coming down today 12.8. Albumin is 1.5 corrected level is about 30 mcg/ml. daughter wants to wait a few more days prior to deciding on trach versus withdrawal. 01/24: No real change in neurologic exam. She does move her right arm spontaneously. Her eyes open but I cannot seem to convince myself that she tracks. Blood pressure well controlled. Unable to wean from ventilator. 01/25: No improvement in neurologic exam. She fails CPAP trials when breathing spontaneously and will likely need a tracheostomy. I will discuss with the palliative care service whether the family would like to pursue the trach and PEG route. 01/26: Remains without suitable response to stimulation. Apneic episodes while on spontaneous breathing trials. 01/27: Her eyes are more widely open today. She clearly tracks motion around the room and appears to respond to questions. She moves her right arm and hand weakly to command. This is considerable improvement from yesterday. She remains very weak on spontaneous breathing trials requiring 17 cm water of pressure support. 01/28: Again today she opens her eyes spontaneously intends to track with her eyes. Her respiratory effort remains weak but she has improved stamina over the past 48 hours. I think she would recognize her family at this point. We await their decision on whether to proceed with tracheostomy. 01/29: A little more lethargic today. She opens her eyes but not with the alertness of yesterday. She failed CPAP trials again today and less quite high pressure support is used. The daughter Kaci would like to proceed with tracheostomy despite the fact that recovery may be limited. 01/30: Patient continued to have inadequate tidal volumes during attempted spontaneous breathing trials this morning. Per daughter's wishes we proceeded with the placement of a tracheostomy. The woman required some sedation for this procedure and we anticipate that it may take a day or so for her to recover completely from the analgesia and sedation. 01/31: Currently on PSV trial 06/08 at 35% arousable. Will inadvertently squeeze right upper extremity only at the present time. Tube feeds will be changed to Glucerna 1.5 per nutrition's recommendations at 50 cc an hour 02/01: Patient remains on CPAP via trach. Not on any sedation. Somnolent but wakes up, tracks today. Not following commands 02/02: Tolerating T piece today. Neuro remains unchanged. Opens eyes to stimulation. Increase T piece time to 8-10 hours from today SUBJECTIVE: 02/03: Patient had episode of apnea. Back on a rate on the ventilator. Will attempt CPAP trial again today. No T piece trial today. Tolerating tube feeding. Positive BM. Opens eyes to stimulation's and moves right upper extremity. Objective Vital Signs / I&O: Vital Signs 02/02/18 11:41 02/02/18 12:41 02/02/18 16:00 Temperature 99.1 F Pulse Rate 79 72 Respiratory Rate 20 15 14 Blood Pressure 131/69 Pulse Oximetry 100 100 02/02/18 16:33 02/02/18 19:00 02/02/18 20:00 Temperature 99.1 F Pulse Rate 80 83 72 Respiratory Rate 14 14 Blood Pressure 119/66 Pulse Oximetry 100 100 02/02/18 22:10 02/02/18 23:00 02/03/18 00:00 Temperature 99.3 F Pulse Rate 75 74 Respiratory Rate 14 16 Blood Pressure 117/65 Pulse Oximetry 100 02/03/18 01:00 02/03/18 01:07 02/03/18 03:00 Temperature Pulse Rate 80 70 Respiratory Rate 18 17 Blood Pressure Pulse Oximetry 100 02/03/18 04:00 02/03/18 04:22 02/03/18 04:23 Temperature 99.3 F Pulse Rate 77 65 Respiratory Rate 15 16 14 Blood Pressure 154/69 H Pulse Oximetry 100 100 02/03/18 08:52 Temperature Pulse Rate 82 Respiratory Rate 25 H Blood Pressure Pulse Oximetry 100 Intake & Output 02/02/18 02/03/18 02/03/18 18:59 06:59 18:59 Intake Total 665 / 665 1250 / 1250 Output Total 550 / 550 560 / 560 Balance 115 / 115 690 / 690 Weight 67.1 kg Intake: IV 300 / 300 Merrem Inj 1,000 MG In NS Inj 300 / 300 100 ML @ 200 mls/hr IV.SIG Q8H CARMEN Rx#:[id number] Oral 0 / 0 Tube Feeding 665 / 665 650 / 650 Water Bolus Amount 300 / 300 Output: Urine Amount (Catheter) 550 / 550 560 / 560 Indwelling Temp Sensing 550 / 550 560 / 560 Catheter Other: Date of Last Bowel Movement 02/02/18 02/03/18 # Bowel Movements 1 1 # Incontinent Bowel Movements 1 Result Diagrams: 02/01/18 04:38 02/01/18 04:38 Other Results: Microbiology 01/18/18 16:20 Catheterized Urine Urine Culture - Final Escherichia coli ESBL positive 01/08/18 22:04 Blood - Peripheral Aerobic Blood Culture - Final No growth in 5 days 01/08/18 22:04 Blood - Peripheral Anaerobic Blood Culture - Final No growth in 5 days 01/08/18 22:04 Blood - Peripheral Aerobic Blood Culture - Final No growth in 5 days 01/08/18 22:04 Blood - Peripheral Anaerobic Blood Culture - Final No growth in 5 days 01/08/18 17:10 Catheterized Urine Urine Culture - Final Fern albicans 01/03/18 00:30 Catheterized Urine Urine Culture - Final No growth in 48 hours Imaging: Chest X-Ray 01/02/18 00:00 CONCLUSION: 1. Bibasilar haziness consistent with atelectasis and/or mild infiltrates. 2. Cardiomegaly. 3. Degenerative changes and scoliosis of the thoracic spine. Head CT 01/03/18 00:00 CONCLUSION: 1. New large nonhemorrhagic infarct involving the right MCA territory 2. 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 Chest X-Ray 01/07/18 00:00 CONCLUSION: No focal or acute pulmonary infiltrates. No significant changes compared to the prior exam. Head CT 01/08/18 00:00 CONCLUSION: 1. Large evolving infarct on the right slight increase in swelling in effacement of the right lateral ventricle but without significant midline shift. Remote left cerebellar infarct. Chest X-Ray 01/12/18 00:00 CONCLUSION: Moderate consolidative changes left base that have progressed in the interval with some trace bronchograms. Head CT 01/13/18 00:00 CONCLUSION: 1. Continued evolution of right middle cerebral artery distribution infarct without evidence of acute hemorrhage Chest X-Ray 01/16/18 03:17 CONCLUSION: Interval intubation and right neck central line placement without complication. Stable infiltrates and effusions. Chest X-Ray 01/17/18 04:00 CONCLUSION: Cardiomegaly with basilar airspace consolidation and small effusions similar to January 16. Head CT 01/19/18 00:00 CONCLUSION: 1. Stable appearance to the right MCA infarction; no evidence of acute blood products or mass effect. Chest X-Ray 01/30/18 00:00 CONCLUSION: Left lung base opacity is present may be due to a combination of consolidation and or pleural effusion, mild pulmonary edema suspected as well. Chest X-Ray 02/02/18 12:33 CONCLUSION: 1. Cardiomegaly. 2. Left basilar consolidation. 3. Stable compared to previous dated 01/30/2018. Objective Remarks: GEN: 87-year-old frail elderly female, lying in bed, spontaneous eye opening. HEENT: pupils are 2 mm, equal, reactive. mucous membranes moist. Neck: trachea midline. Tracheostomy site is clean dry without erythema. Sutures intact. Chest: intubated. Equal chest rise. No adventitious sounds. On ventilator via tracheostomy CV: normal rate, regular rhythm. No JVD. GI: soft, nontender, nondistended. no guarding. EXT: Tepid, poorly perfused. 1+ edema. Neuro: Spontaneous eye opening. Spontaneously moving right upper extremity. Withdraws bilateral lower extremities to noxious stimulation. Left upper extremity is flaccid. Tracks with eyes SKIN: - Sacral DTI. 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 Carolina, overall prognosis poor per Dr. Carolina -Aspirin chew 324 milligrams daily -Sepsis and phenytoin toxicity may be contributing to altered mental status Currently on divalproex 500 mg twice daily. Level in a.m. 02/01 is low 14, but clinically stable. Recheck 02/04 a.m. Holding home medications gabapentin 100 mg twice daily. Holding hydrocodone/acetaminophen 7.5/325 1 tablet every 8 hours. Holding acetaminophen 650 mg by tube every 6 hours scheduled. Home medication Holding modafinil 200mg at night as needed/home medication Document acetaminophen above. Patient is on scheduled acetaminophen and hydrocodone/acetaminophen at home. Holding phenytoin levetiracetam 500 mg twice daily and mirtazapine 15 mg at night/home medications. CV: Essential hypertension Coronary artery disease Mild pulmonary hypertension Chronic diastolic heart failure History of SSS 2D echocardiogram 2005 revealed EF 50%. Moderate TR. PAP 50 mmHg Continue carvedilol but increase to 6.25 3.125 mg p.o. twice daily/home medication Continue furosemide 20 mg by tube daily Continue atorvastatin 20 mg daily Currently hemodynamically stable not requiring vasopressors and/or antihypertensives Resp: Acute and chronic respiratory failure Status post percutaneous tracheostomy by Dr. Burden 01/30 [facility] Ventilator bundle Albuterol/ipratropium aerosols every 4 hours with albuterol aerosols every 2 hours as needed dyspnea Attempt CPAP trials today GI: Gastroesophageal reflux disease Chronic constipation Glucerna 1.5 at 50 cc an hour per nutrition recommendation with free water 100 cc every 6 hours Lansoprazole for GI prophylaxis. On omeprazole 20 mg daily at home. Docusate sodium/senna 1 tablet twice daily for bowel regimen. Patient is on polythene glycol 17 g daily at the correction. : Ruiz catheter placed for accurate I's and O's in a critically ill patient Remove per nursing protocol Endo: Sliding's scale insulin with aspart and with Accu-Cheks every 6 hours to maintain euglycemia/low regimen Renal: Creatinine currently within normal limits Monitor urine output Accurate I's and O's Heme: History of chronic apixaban use 2.5 mg twice daily Normocytic anemia Monitor CBC daily. Follow trends. No systemic anticoagulation per above ID: ESBL positive E. coli UTI History of Fern funguria 01/08 Treated C. difficile Complete 14 days therapy with meropenem stop date 02/03 Monitor for signs and symptomatology infection. Follow trends Ceftriaxone 01/07-01/11 -Urine culture ESBL E. coli, restarted ceftriaxone 01/20/2018, DCd and start Meropenem 01/21/18. Stop date 02/03/18 -Started on Fluconazole 01/12 (completed a total of 14 days) MSK: Sacral DTI Wound care evaluate and treat. FEN: Replace electrolytes as clinically indicated per ICU electrolyte protocol Access -Utilize peripheral IV. Central line if indicated Prophylaxis -GI -pantoprazole -DVT -SCD/heparin subcu Level 2 follow-up
[2018-02-03] MEDS: Potassium Chloride 20 MEQ Pwd Pkt G-TUBE SCH (09:32)
--- NOTE | 2018-02-03 10:34 | P.CONWOU ---
History of Present Illness Service: 02/03/2018 Reason for Consult: Sacral Pressure Injury Primary Care Provider: UNKNOWN Chief Complaint: Afib/Stroke History of Present Illness: Wound care rounds today with Madelyn Nevarez RNWCC. Patient's nurses were present in the room about to change her dressings so this was opportune. Patient is awake and alert but nonverbal. She responds to the nursing turning her on her side for dressing change to her sacral ulcer. Nursed voice that there is no remaining santyl and will request temporary dressings until the Santyl is sent up by pharmacy. Nurse Sushma reports that patient stools frequently and therefore her dressing has to be changed frequently, Stools are not hard enough for rectal tube. No other acute concerns at this time. Review of Systems Skin/Breast: Reports skin ulcer PMFSH - History History Provided By: Family Member - Tobacco History Second Hand Smoke Exposure: No Smoking Status: Never smoker - Alcohol History How Often Do You Have a Drink Containing Alcohol: Never - Travel History History of Recent Travel: No Medications and Allergies Active Medications: Active Medications Albuterol (Duoneb Neb ([facility])) 1 ampul INH Q4HR NEB [facility] Last Admin: 02/03/18 08:48 Dose: 1 ampul Albuterol (Albuterol Neb (Prn)) 2.5 mg NEB Q2HR NEB PRN PRN Reason: DYSPNEA Artificial Tears (Genteal Severe Dry Eye Relief 0.3% Opth Gel) 1 drops EACH EYE [facility] Last Admin: 02/02/18 21:19 Dose: 1 drops Aspirin (Aspirin Chew) 324 mg G-TUBE DAILY [facility] Last Admin: 02/03/18 09:27 Dose: 324 mg Atorvastatin Calcium (Lipitor) 20 mg G-TUBE [facility] Last Admin: 02/02/18 21:18 Dose: 20 mg Carvedilol (Coreg) 6.25 mg G-TUBE DAILY [facility] Clonidine HCl (Catapres) 0.1 mg PO Q6H PRN PRN Reason: SBP>180, DBP>110 Collagenase (Santyl Oint) 1 applicatio TOPICAL DAILY [facility] Last Admin: 02/03/18 09:18 Dose: 1 applicatio Dextrose (D50w Vial) 50 ml IV.PUSH UNSCH PRN PRN Reason: PER HYPOGLYCEMIA PROTOCOL Divalproex Sodium (Depakote Sprinkles) 500 mg G-TUBE BID [facility] Last Admin: 02/03/18 09:16 Dose: 500 mg Furosemide (Lasix Liq) 20 mg NG/OG DAILY [facility] Last Admin: 02/03/18 09:15 Dose: 20 mg Glucagon (Glucagon Inj) 1 mg OTHER UNSCH PRN PRN Reason: for Hypoglycemia Protocol Heparin Sodium (Porcine) (Heparin Inj) 5,000 units SQ Q12HR [facility] Last Admin: 02/03/18 09:15 Dose: 5,000 units Magnesium Sulfate Inj 4 gm/ (Sodium Chloride) 100 mls @ 50 mls/hr IV.SIG UNSCH PRN PRN Reason: For Magnesium 0.9 - 1.1 mg/dL Magnesium Sulfate Inj 2 gm/ (Sodium Chloride) 100 mls @ 50 mls/hr IV.SIG UNSCH PRN PRN Reason: For Magnesium 1.2 - 1.6 mg/dL Potassium Chloride (Kcl 40 Meq Premix Inj) 40 meq in 100 mls @ 25 mls/hr IV.SIG Q2H PRN PRN Reason: For Potassium 2.8 - 3.2 mEq/L Potassium Chloride (Kcl 40 Meq Premix Inj) 40 meq in 100 mls @ 25 mls/hr IV.SIG UNSCH PRN PRN Reason: For Potassium 3.3 - 3.5 mEq/L Potassium Chloride (Kcl 20 Meq Premix Inj) 20 meq in 100 mls @ 50 mls/hr IV.SIG Q2H PRN PRN Reason: For Potassium 2.8 - 3.2 mEq/L Last Infusion: 01/21/18 20:49 Dose: Infused Potassium Phosphate 30 mmol/ (Sodium Chloride) 260 mls @ 42 mls/hr IV.SIG UNSCH PRN PRN Reason: SEE LABEL COMMENTS Sodium Phosphate 30 mmol/ (Sodium Chloride) 260 mls @ 42 mls/hr IV.SIG UNSCH PRN PRN Reason: For Phosphorus < 2.5 mg/dL Last Admin: 02/01/18 13:13 Dose: 42 mls/hr Meropenem 1,000 mg/ Sodium (Chloride) 100 mls @ 200 mls/hr IV.SIG Q8H [facility] Stop: 02/03/18 23:59 Last Admin: 02/03/18 09:18 Dose: 200 mls/hr Insulin Aspart (Novolog Insulin Correctional Sugar Inj) 0 unit SQ Q6HR [facility]; Protocol Last Admin: 02/03/18 06:24 Dose: Not Given Labetalol HCl (Trandate Inj) 10 mg IV.PUSH Q1H PRN PRN Reason: SBP>160, DBP>90 Lactobacillus Acidophilus (Lactinex Pkt) 1 gm G-TUBE TID [facility] Last Admin: 02/03/18 09:17 Dose: 1 gm Lansoprazole (Prevacid Solutab) 30 mg NG/OG DAILY [facility] Last Admin: 02/03/18 09:18 Dose: 30 mg Lorazepam (Ativan Inj) 0.5 mg IV.PUSH HS PRN PRN Reason: SLEEP Last Admin: 01/31/18 22:39 Dose: 0.5 mg Magnesium Oxide (Mag-Ox) 800 mg PO UNSCH PRN PRN Reason: For Magnesium 1.2 - 1.6 mg/dL Miscellaneous (Pill Splitter) 1 each OTHER UNSCH PRN PRN Reason: SEE LABEL COMMENTS Modafinil (Provigil) 200 mg G-TUBE DAILY [facility] Last Admin: 01/16/18 10:29 Dose: Not Given Multivitamins/Minerals (Theragran-M) 1 tab PO DAILY [facility] Last Admin: 02/03/18 09:16 Dose: 1 tab Potassium Bicarb/Potassium Chloride (K-Lyte Cl Eff) 50 meq PO UNSCH PRN PRN Reason: For Potassium 3.3 - 3.5 mEq/L Last Admin: 02/03/18 09:21 Dose: 25 meq Potassium Chloride (Kcl Powder) 20 meq G-TUBE DAILY [facility] Last Admin: 02/03/18 09:32 Dose: Not Given Potassium Phosphate (K-Phos Original) 2,000 mg PO UNSCH PRN PRN Reason: SEE LABEL COMMENTS Potassium Phosphate (K-Phos Original) 2,000 mg PO Q4H PRN PRN Reason: Phosphorus Less Than 2.5 mg/dL Sodium Chloride (Ns Flush) 2 ml IV.FLUSH BID [facility] Last Admin: 02/03/18 09:17 Dose: 2 ml Sodium Chloride (Ns Flush) 2 ml IV.FLUSH UNSCH PRN PRN Reason: FLUSH AFTER USING IV ACCESS Last Admin: 01/07/18 22:19 Dose: 2 ml Allergies Allergy/AdvReac Type Severity Reaction Status Date / Time acetaminophen Allergy Severe nausea and Verified 01/01/18 11:09 vomiting propoxyphene Allergy Severe nausea and Verified 01/01/18 11:09 vomiting MRI PRECAUTION Allergy Severe UNKNOWN Uncoded 01/01/18 11:09 Home Medications Medication Instructions Recorded Confirmed Type acetaminophen [Tylenol] 650 mg PO Q6H PRN 01/01/18 01/01/18 History apixaban [Eliquis] 2.5 mg PO BID 01/01/18 01/01/18 History atorvastatin 20 mg PO HS 01/01/18 01/01/18 History carvedilol 3.125 mg PO BID 01/01/18 01/01/18 History dextromethorphan-guaifenesin 10 ml PO Q6H 01/01/18 01/01/18 History dextromethorphan-guaifenesin 1 tab PO BID PRN 01/01/18 01/01/18 History [Mucinex DM] docusate sodium [Colace] 100 mg PO Q8H PRN 01/01/18 01/01/18 History furosemide [Lasix] 20 mg PO DAILY 01/01/18 01/01/18 History gabapentin 100 mg PO BID 01/01/18 01/01/18 History hydrocodone-acetaminophen [[place]] 1 tab PO Q8H PRN 01/01/18 01/01/18 History ipratropium-albuterol 3 ml INHALATION Q6H PRN 01/01/18 01/01/18 History levetiracetam 500 mg PO BID 01/01/18 01/01/18 History mirtazapine 15 mg PO HS 01/01/18 01/01/18 History multivitamin,ve-snid-ebxxsrdi 1 tab PO DAILY 01/01/18 01/01/18 History [Thera-M] omeprazole 20 mg PO DAILY 01/01/18 01/01/18 History polyethylene glycol 3350 [Miralax] 17 g PO DAILY 01/01/18 01/01/18 History potassium chloride 10 meq PO DAILY 01/01/18 01/01/18 History prednisone 2.5 mg PO DAILY 01/01/18 01/01/18 History Physical Exam Vital signs: Vital Signs 02/02/18 11:41 02/02/18 12:41 02/02/18 16:00 Temperature 99.1 F Pulse Rate 79 72 Respiratory Rate 20 15 14 Blood Pressure 131/69 Pulse Oximetry 100 100 02/02/18 16:33 02/02/18 19:00 02/02/18 20:00 Temperature 99.1 F Pulse Rate 80 83 72 Respiratory Rate 14 14 Blood Pressure 119/66 Pulse Oximetry 100 100 02/02/18 22:10 02/02/18 23:00 02/03/18 00:00 Temperature 99.3 F Pulse Rate 75 74 Respiratory Rate 14 16 Blood Pressure 117/65 Pulse Oximetry 100 02/03/18 01:00 02/03/18 01:07 02/03/18 03:00 Temperature Pulse Rate 80 70 Respiratory Rate 18 17 Blood Pressure Pulse Oximetry 100 02/03/18 04:00 02/03/18 04:22 02/03/18 04:23 Temperature 99.3 F Pulse Rate 77 65 Respiratory Rate 15 16 14 Blood Pressure 154/69 H Pulse Oximetry 100 100 02/03/18 08:52 Temperature Pulse Rate 82 Respiratory Rate 25 H Blood Pressure Pulse Oximetry 100 Intake & Output 02/02/18 02/03/18 02/03/18 18:59 06:59 18:59 Intake Total 665 / 665 1250 / 1250 Output Total 550 / 550 560 / 560 Balance 115 / 115 690 / 690 Weight 67.1 kg Intake: IV 300 / 300 Merrem Inj 1,000 MG In NS Inj 300 / 300 100 ML @ 200 mls/hr IV.SIG Q8H [facility] Rx#:[id number] Oral 0 / 0 Tube Feeding 665 / 665 650 / 650 Water Bolus Amount 300 / 300 Output: Urine Amount (Catheter) 550 / 550 560 / 560 Indwelling Temp Sensing 550 / 550 560 / 560 Catheter Other: Date of Last Bowel Movement 02/02/18 02/03/18 # Bowel Movements 1 1 # Incontinent Bowel Movements 1 - Urinary Catheter Management Indwelling Temp Sensing Catheter Cath placed during this visit: yes Reason for continuing: Severe pressure ulcer/wound Insertion date: 01/16/18 Insertion time: 04:00 Wound/Pressure Injury - Patient Status Premedicated for Pain Prior to Dressing Change: No - Wound Right Buttocks Wound Staging: Stage IV Wound Assessment: Ongoing Wound Type: Pressure Injury Is This a Chronic Wound: Yes Requested from Provider a Wound Care Consult: Yes (pass on to am nurse/doctor for assessement) Length: 7 (cm) Width: 9 (cm) Depth: 0.2 (cm) Wound Bed Appearance: Necrotic, Yellow Wound Bed Appearance: ~50% black thin eschar,~30% yellow thin adherent slough that is non friable, and ~20% pink tissue. Surrounding Tissue Appearance: Erythema Surrounding Tissue Temperature: Warm Drainage Description: Serosanguinous Drainage Amount: Scant Drainage Odor: No Odor Dressing Status: Changed Cleansing Solution: Saline Topical: Barrier cream Wound Packing Type: Alginate Primary Dressing: Absorbant Pad Cover Dressing: Gauze Pads Wound Dressing Change Date: 01/15/18 Wound Margin Description: Denuded (peeling) sacrum Wound Staging: Unstageable Wound Assessment: Ongoing Wound Type: Pressure Injury Is This a Chronic Wound: Yes Requested from Provider a Wound Care Consult: Yes Wound Bed Appearance: Necrotic, Yellow Surrounding Tissue Appearance: Erythema Surrounding Tissue Temperature: Warm Drainage Description: Serosanguinous Drainage Amount: Scant Drainage Odor: No Odor Dressing Status: Changed Topical: Enzymatic Debridement Ointment Wound Packing Type: Alginate Primary Dressing: Absorbant Pad Cover Dressing: Gauze Pads Wound Dressing Change Date: 01/15/18 Sacrum Wound Staging: Stage IV Wound Assessment: Ongoing Wound Type: Pressure Injury Is This a Chronic Wound: Yes Requested from Provider a Wound Care Consult: (ongoing) Length: 5.5 (~5.5cm) Width: 6 (~6cm) Depth: 0 (eschar and slough) Wound Bed Appearance: El, Necrotic, Peeling Skin, Bruno, Red, White, Yellow Wound Bed Appearance: Wound bed presents with ~50% thin black eschar, ~30%adherent thin non friable slough, and ~20% pink tissue. Surrounding Tissue Appearance: Dark Red, Erythema Surrounding Tissue Temperature: Warm Drainage Description: Serosanguinous Drainage Amount: Scant Drainage Odor: Slight Odor Dressing Status: Changed Cleansing Solution: Saline Topical: Enzymatic Debridement Ointment Wound Packing Type: Alginate Primary Dressing: Absorbant Pad Cover Dressing: Gauze Pads Wound Dressing Change Date: 01/15/18 Wound Margin Description: Well defined and open Left Lower Back Wound Staging: Stage II Wound Assessment: Ongoing Wound Type: Pressure Injury Is This a Chronic Wound: Yes Requested from Provider a Wound Care Consult: No Length: 2 (~2cm) Width: 2 (~2cm) Depth: 0.1 (~0.1cm) Wound Bed Appearance: El, Peeling Skin, Bruno, White, Yellow Wound Bed Appearance: Wound bed presents as 100% pink partial thickness skin loss. Surrounding Tissue Appearance: Erythema Surrounding Tissue Temperature: Warm Drainage Description: Yellow Drainage Amount: Minimal Drainage Odor: No Odor Dressing Status: Changed Cleansing Solution: Saline Topical: Santile Wound Packing Type: Alginate Primary Dressing: Absorbant Pad Cover Dressing: Gauze Pads Wound Dressing Change Date: 01/17/18 Wound Margin Description: Well defined and open. Right Sacrum Wound Assessment: Ongoing Wound Type: Pressure Injury Is This a Chronic Wound: Yes Requested from Provider a Wound Care Consult: Yes (wound care examined wound yesterday) Wound Bed Appearance: Yellow Surrounding Tissue Appearance: Erythema Drainage Amount: None Dressing Status: Changed Cleansing Solution: santyl Primary Dressing: Gauze Pad Cover Dressing: Absorbant Pad - Additional Information Patient seen on [address] [place] [id number] for follow up of wound to sacral area per Doctor request. Patient is laying in regular bed upon greeting card writer's arrival. Patient is non responsive to verbal stimuli. Responds to pain pressure only by guarding and grunting. Patient was turned to L side with the assistance of OCHOA Boyd [address] [place] [address]. Patient is noted laying on cloth pad with disposable ultrasorb pad placed in staggered fashion under patient. Removed adhesive foam dressing to reveal full thickness wound to sacral area. Measurements, and description of sacral wound are noted above.Patient was previously seen by wound care and wound to sacrum was noted as a stage IV pressure injury at that time. Once a wound is identified as a stage IV it will continue to be classified as a stage IV. Patient has Dignisheild and external female catheter in place. There is also another adhesive foam dressing to the L of the sacral wound at 10 o'clock on the side of the lower back Peeled back adhesive foam dressing to reveal stage 2 pressure injury. Descriptions and measurements of wound to L lower back are also noted above. Adhesive foam dressing was applied back in place. Wound to Sacrum was cleansed with normal saline and patted dry. Applied Maxorb II ( calcium alginate to wound bed avoiding intact skin. Covered wound to sacrum with bordered gauze and secondary dressing. Patient was given a bath using medline bath cloths ultrasorb pad and cloth pad were removed replaced with two clean ultrasorb pads placed in staggered fashion. Rowenanet was then transferred to [facility] with the assistance of INFECTIOUS DISEASE TECHNICIAN, OCHOA Blunt, mold mover Donna, and greeting card writer. Patient was then positioned off bottom with the total assistance of OCHOA Blunt and GARETT.Wound care recommendations are noted above 01/20/18: Wound care Physician note. Wound dimensions today are 6.8cmx8.8cmx eschar. Wound was already dressed with santyl and border gauze. As patient is unstable will clarify orders for dressingl Incision - Patient Status Premedicated for Pain Prior to Dressing Change: No Assessment and Plan - Assessment (1) Stage 4 skin ulcer of sacral region Code(s): L98.429 - Non-pressure chronic ulcer of back with unspecified severity Status: Chronic Plan: Wound dimensions this week are 6.8cmx8.8cmx eschar. Orders written for wound to be cleaned daily with normal saline and nickel thick santyl to be applied to the wound and covered with normal saline moistened gauze and border gauze. 02/03/18: Wound dimensions this week are [id number] slough. Wound was cleaned with normal saline and dressed with moistened gauze and border gauze until Santyl is obtained. Orders submitted remains the same.
--- NOTE | 2018-02-03 12:49 | P.PNWCN ---
Wound Care Nurse Consult Description: Patient seen for follow up of sacral pressure injury Communicated with: Please follow Doctor Ibarra's written orders Recommendation: Written wound care orders from Doctor Ibarra Wound/Pressure Injury - Wound Right Buttocks Wound Dressing Change Date: 01/15/18 Left Sacrum Wound Packing Type: Alginate Primary Dressing: Absorbant Pad Wound Dressing Change Date: 01/15/18 Sacrum Wound Staging: Stage IV Wound Assessment: Ongoing Wound Type: Pressure Injury Is This a Chronic Wound: Yes Requested from Provider a Wound Care Consult: (ongoing) Length: 8.5 (cm) Width: 8 (cm) Depth: 0 (slough) Wound Bed Appearance: Necrotic, [place], Yellow Wound Bed Appearance: ~80% yellow slough and ~20% pink tissue . Drainage Description: Serosanguinous Drainage Amount: Scant Drainage Odor: Slight Odor Dressing Status: Changed Cleansing Solution: Saline Wound Packing Type: Gauze Pads (saline moistened gauze pads) Cover Dressing: Bordered gauze Wound Dressing Change Date: 02/03/18 Wound Margin Description: Well defined and open - Additional Information Patient seen on for follow up of wound to sacral area with Doctor Ibarra. Patient is trying to communicate, but is unable to articulate . Patient was turned to L side with the assistance of OCHOA VEGAS. Patient is noted laying on cloth pad with disposable ultrasorb pad placed in staggered fashion under patient. Removed adhesive foam dressing to reveal full thickness wound to sacral area. Measurements, and description of sacral wound are noted above.Patient was previously seen by wound care and wound to sacrum was noted as a stage IV pressure injury at that time. Once a wound is identified as a stage IV it will continue to be classified as a stage IV.Wound to Sacrum was cleansed with normal saline and patted dry. Doctor Ibarra assessed wound. Will continue with Santyl. No Santyl is available at bedside. Awaiting arrival from pharmacy. Applied saline moistened gauze pads loosely pakced in wound bed and covered with bordered gauze. Cloth pad was removed and OCHOA Ordaz and other RN placed ultraorb pads in staggered fashion.
--- NOTE | 2018-02-03 15:46 | P.DIET ---
Nutritional Evaluation Type of nutrition evaluation: follow-up Nutrition consult regarding: Tube Feeding Nutrition screening: [facility] [place] "[place] with severe diarrhea") Screening comments: Pt transferred to [facility] due to Halicat. Subjective Subjective Comments: Pt resides in a NH. Objective - Diagnosis Seizures, AMS. PMH see H&P - Objective % IBW: 119 (IBW = 135#) Body Weight Used for Calculations: IBW Energy Needs - Lower Range (kCal/kg): 25 Energy Needs - Upper Range (kCal/kg): 30 Lower Limit kCal/kg (kCals): 1,535 Upper Limit kCal/kg (kCals): 1,842 Lower Limit Protein Factor (Grams per Kg): 1.2 Upper Limit Protein Factor (Grams per Kg): 1.5 Lower Protein Needs (Protein): 74 Upper Protein Needs (Protein): 92 Dietitian Reviewed in Medical Record: Curent medications, Intake & Output, Labs , Medical history, Tube feeding, Wound/DTI Diet Order: NPO Wound Care Note: see WOCN dated 02/03: of note, stage 4 pressure injury to sacrum Feeding - Current Tube Feeding Tube Feeding Product: Jevity 1.5 Tube Feeding Rate: 50 Current kCals Provided by Tube Feedin,800 Current Protein Provided by Tube Feeding (gPRO): 77 Medications That Affect Tube Feeding Run Time: Dilantin (tid) Total Time Off: 6 hours Current Free H2O Provided (m/l): 912 Assessment Assessment: Pt is s/p cardiac and respiratory arrest (01/16). She has been tolerating Jevity 1.5 @ 50 mls/hr and this adequately meets estimated needs. Pt has high nutrition needs 2' the to presence of stage 4 pressure injury. Pt may benefit from the addition of Jarod, a targeted nutrition therapy aimed at healing wounds. Significant wt changes noted: 55 kg on (01/12), 67.3 kg on (01/13), 69.2 kg (01/17) and 76.5 kg on (01/17) and CBW = 67.1 LBM 02/03. Will monitor for trends. Recommendations: Continue Jveity 1.5 @ 50 mls/hr Please order Jarod bid to aid in healing Dietitian to Monitor: Lab values, Glucose level, Tube feeding tolerance, Weight change, Wound/skin status, Medical course
[2018-02-03] MEDS: Hypromellose 0.3% Opth Gel 10 GM Bottle EACH EYE SCH (21:07)
[2018-02-04] MEDS: Insulin NovoLOG Aspart Correctional Sugar Inj SQ SCH ×4 (00:58→18:39)
--- NOTE | 2018-02-04 06:54 | P.PNCC ---
Subjective Subjective Remarks/Hospital Course: 87 year old female admitted initially for evaluation of a witnessed seizure. The patient is assisted resident with multiple medical issues, including history of seizures on Keppra. Per chart review her baseline is alert, confused , and often combative at a assisted. She is verbal. She is able to feed herself; she consumes a pureed, nectar-thick diet. She spends most of her time in chair, with limited mobility. She was admitted to [facility] in December 18 for the above, while in the hospital she developed right MCA stroke with significant damage of almost entire right hemisphere. The patient's daughter is a ICU nurse at outside of critical access hospital facility , who is requesting to continue aggressive management. Today early in the morning the patient developed respiratory arrest flowed by a cardiac arrest requiring multiple cycles of CPR and epinephrine injections. The initial rhythm was PEA versus asystolic. After approximately 15 minutes of CPR the patient regained spontaneous circulation. She was intubated just prior to arrest, and later central line and A-line was used due to hemodynamic instability. The patient's daughter was called during the CPR and again requested full code and aggressive management. 01/16 1000 hrs: Gas exchange now acceptable and pH problems have been corrected with ventilator manipulations. The etiology of the rest appears to have been a hypercapnic respiratory acidosis superimposed on a large dominant hemisphere acute stroke. Chest x-ray reviewed tubes and lines in good position. Cardiac rhythm appears to be atrial paced. The QRS is wide and I suspect within there somewhere is a sequential ventricular spike although I do not see it on the monitor. Potassium was elevated at 5.8 we will follow that closely. At present she is requiring 8 mcg/min of epinephrine and urine output has been about 40 mL's. Patient remains critically ill. 01/17: no improvements. severely encephalopathic. remains on epinephrine, although digits are now dusky and our vasopressors may be causing more harm than any improvements at this point. will be forced to use ivf for perfusion instead of epinephrine. I was unable to reach family today, though the family medicine service updated the family and they press on for aggressive measures. unlikely to have any meaningful recovery given large stroke superimposed on baseline poor functionality. 01/18: Remains lethargic but opens eyes to painful stimuli. Involuntarily grasped with the right hand. Left upper extremity is flaccid but withdraws bilateral lower extremity. Dilantin level was elevated on 01/16/2016 will recheck level today and tomorrow morning. Discussed in detail with daughter Kaci 01/19: Neuro exam remains unchanged no improvement in encephalopathy. Dilantin level remains elevated at 24.5, albumin corrected will be much higher. Updated daughter Kaci, she will meet with palliative care today 01/20: Patient is still obtunded encephalopathy. Dilantin level further down 20.3. No seizures. Family at this time wants to continue aggressive care. Patient remains hemodynamically more stable. Urine culture growing gram- negative rods started on Rocephin 01/21: Neuro status remains unchanged remains obtunded encephalopathic. Dilantin level improved to 16.2 today. Urine culture growing ESBL E. coli. Rocephin was discontinued, started on meropenem 1 g IV every 8 hours 01/22: Patient remains intubated remains completely off all sedation for several days. Dilantin level down to 14.2 uncorrected. Slightly more responsive to painful stimuli, continues to have partial eye opening. 01/23: No significant improvement in neuro exam though opening eyes more with stimulation. Dilantin level coming down today 12.8. Albumin is 1.5 corrected level is about 30 mcg/ml. daughter wants to wait a few more days prior to deciding on trach versus withdrawal. 01/24: No real change in neurologic exam. She does move her right arm spontaneously. Her eyes open but I cannot seem to convince myself that she tracks. Blood pressure well controlled. Unable to wean from ventilator. 01/25: No improvement in neurologic exam. She fails CPAP trials when breathing spontaneously and will likely need a tracheostomy. I will discuss with the palliative care service whether the family would like to pursue the trach and PEG route. 01/26: Remains without suitable response to stimulation. Apneic episodes while on spontaneous breathing trials. 01/27: Her eyes are more widely open today. She clearly tracks motion around the room and appears to respond to questions. She moves her right arm and hand weakly to command. This is considerable improvement from yesterday. She remains very weak on spontaneous breathing trials requiring 17 cm water of pressure support. 01/28: Again today she opens her eyes spontaneously intends to track with her eyes. Her respiratory effort remains weak but she has improved stamina over the past 48 hours. I think she would recognize her family at this point. We await their decision on whether to proceed with tracheostomy. 01/29: A little more lethargic today. She opens her eyes but not with the alertness of yesterday. She failed CPAP trials again today and less quite high pressure support is used. The daughter Kaci would like to proceed with tracheostomy despite the fact that recovery may be limited. 01/30: Patient continued to have inadequate tidal volumes during attempted spontaneous breathing trials this morning. Per daughter's wishes we proceeded with the placement of a tracheostomy. The woman required some sedation for this procedure and we anticipate that it may take a day or so for her to recover completely from the analgesia and sedation. 01/31: Currently on PSV trial 06/08 at 35% arousable. Will inadvertently squeeze right upper extremity only at the present time. Tube feeds will be changed to Glucerna 1.5 per nutrition's recommendations at 50 cc an hour 02/01: Patient remains on CPAP via trach. Not on any sedation. Somnolent but wakes up, tracks today. Not following commands 02/02: Tolerating T piece today. Neuro remains unchanged. Opens eyes to stimulation. Increase T piece time to 8-10 hours from today 02/03: Patient had episode of apnea. Back on a rate on the ventilator. Will attempt CPAP trial again today. No T piece trial today. Tolerating tube feeding. Positive BM. Opens eyes to stimulation's and moves right upper extremity. SUBJECTIVE: 02/04: Resting comfortably in bed in no acute distress. Lasted T-piece from 11 a.m. to 9 PM yesterday. Currently on CPAP trial. Afebrile. Tolerating tube feeding. Objective Vital Signs / I&O: Vital Signs 02/03/18 07:00 02/03/18 08:00 02/03/18 08:52 Temperature 99.1 F Pulse Rate 70 78 82 Respiratory Rate 18 25 H Blood Pressure 176/78 H Pulse Oximetry 100 100 02/03/18 10:58 02/03/18 11:00 02/03/18 12:00 Temperature 98.6 F Pulse Rate 67 65 82 Respiratory Rate 12 23 Blood Pressure 148/64 H Pulse Oximetry 100 100 02/03/18 15:00 02/03/18 15:16 02/03/18 16:00 Temperature 98.1 F Pulse Rate 75 73 74 Respiratory Rate 16 14 Blood Pressure 143/63 H Pulse Oximetry 02/03/18 18:37 02/03/18 20:00 02/03/18 21:03 Temperature 98.6 F Pulse Rate 82 83 74 Respiratory Rate 24 16 Blood Pressure 154/77 H Pulse Oximetry 02/03/18 21:21 02/04/18 00:00 02/04/18 01:10 Temperature 99.3 F Pulse Rate 72 76 Respiratory Rate 19 17 16 Blood Pressure 140/104 H Pulse Oximetry 100 100 100 02/04/18 04:00 02/04/18 04:40 Temperature 98 F Pulse Rate 107 H 85 Respiratory Rate 23 17 Blood Pressure 152/114 H Pulse Oximetry 100 100 Intake & Output 02/03/18 02/03/18 02/04/18 06:59 18:59 06:59 Intake Total 1250 / 1250 1349 / 1349 889 / 889 Output Total 560 / 560 1150 / 1150 Balance 690 / 690 199 / 199 889 / 889 Weight 67.1 kg 65.4 kg Intake: IV 300 / 300 460 / 460 Merrem Inj 1,000 MG In NS Inj 300 / 300 200 / 200 100 ML @ 200 mls/hr IV.SIG Q8H CARMEN Rx#:[id number] Sodium Phosphate Inj 30 MMOL In 260 / 260 NS Inj 250 ML @ 42 mls/hr IV. SIG UNSCH PRN Rx#:[id number] Oral 0 / 0 0 / 0 Tube Feeding 650 / 650 589 / 589 589 / 589 Tube Irrigant 100 / 100 100 / 100 Water Bolus Amount 300 / 300 200 / 200 200 / 200 Output: Urine Amount (Catheter) 560 / 560 1150 / 1150 Indwelling Temp Sensing 560 / 560 1150 / 1150 Catheter Other: Date of Last Bowel Movement 02/03/18 02/03/18 02/04/18 # Bowel Movements 1 # Incontinent Bowel Movements 1 Result Diagrams: 02/01/18 04:38 02/01/18 04:38 Other Results: Microbiology 01/18/18 16:20 Catheterized Urine Urine Culture - Final Escherichia coli ESBL positive 01/08/18 22:04 Blood - Peripheral Aerobic Blood Culture - Final No growth in 5 days 01/08/18 22:04 Blood - Peripheral Anaerobic Blood Culture - Final No growth in 5 days 01/08/18 22:04 Blood - Peripheral Aerobic Blood Culture - Final No growth in 5 days 01/08/18 22:04 Blood - Peripheral Anaerobic Blood Culture - Final No growth in 5 days 01/08/18 17:10 Catheterized Urine Urine Culture - Final Fern albicans 01/03/18 00:30 Catheterized Urine Urine Culture - Final No growth in 48 hours Imaging: Chest X-Ray 01/02/18 00:00 CONCLUSION: 1. Bibasilar haziness consistent with atelectasis and/or mild infiltrates. 2. Cardiomegaly. 3. Degenerative changes and scoliosis of the thoracic spine. Head CT 01/03/18 00:00 CONCLUSION: 1. New large nonhemorrhagic infarct involving the right MCA territory 2. 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 Chest X-Ray 01/07/18 00:00 CONCLUSION: No focal or acute pulmonary infiltrates. No significant changes compared to the prior exam. Head CT 01/08/18 00:00 CONCLUSION: 1. Large evolving infarct on the right slight increase in swelling in effacement of the right lateral ventricle but without significant midline shift. Remote left cerebellar infarct. Chest X-Ray 01/12/18 00:00 CONCLUSION: Moderate consolidative changes left base that have progressed in the interval with some trace bronchograms. Head CT 01/13/18 00:00 CONCLUSION: 1. Continued evolution of right middle cerebral artery distribution infarct without evidence of acute hemorrhage Chest X-Ray 01/16/18 03:17 CONCLUSION: Interval intubation and right neck central line placement without complication. Stable infiltrates and effusions. Chest X-Ray 01/17/18 04:00 CONCLUSION: Cardiomegaly with basilar airspace consolidation and small effusions similar to January 16. Head CT 01/19/18 00:00 CONCLUSION: 1. Stable appearance to the right MCA infarction; no evidence of acute blood products or mass effect. Chest X-Ray 01/30/18 00:00 CONCLUSION: Left lung base opacity is present may be due to a combination of consolidation and or pleural effusion, mild pulmonary edema suspected as well. Chest X-Ray 02/02/18 12:33 CONCLUSION: 1. Cardiomegaly. 2. Left basilar consolidation. 3. Stable compared to previous dated 01/30/2018. Objective Remarks: GEN: 87-year-old frail elderly female, lying in bed, spontaneous eye opening. HEENT: pupils are 2 mm, equal, reactive. mucous membranes moist. Neck: trachea midline. Tracheostomy site is clean dry without erythema. Sutures intact. Chest: intubated. Equal chest rise. No adventitious sounds. On ventilator via tracheostomy on CPAP CV: normal rate, regular rhythm. No JVD. GI: soft, nontender, nondistended. no guarding. EXT: Tepid, poorly perfused. Trace to 1 1+ edema. Neuro: Spontaneous eye opening. Spontaneously moving right upper extremity. Withdraws bilateral lower extremities to noxious stimulation. Left upper extremity is flaccid. Tracks with eyes SKIN: - Sacral DTI. Stable Assessment and Plan - Assessment and Plan Plan: Neuro/Psych: Acute right MCA/CVA while on apixaban Peripheral neuropathy Seizure disorder NOS Probable anoxic brain injury Toxic metabolic encephalopathy -multifactorial -High risk for hemorrhagic conversion due to size of the stroke, No systemic full anticoagulation recommended -Neurology, Dr. Carolina, overall prognosis poor per Dr. Carolina -Aspirin chew 324 milligrams daily -Sepsis and phenytoin toxicity may be contributing to altered mental status Currently on divalproex 500 mg twice daily. Level in a.m. 02/01 is low 14, but clinically stable. Recheck 8 a.m. Holding home medications gabapentin 100 mg twice daily. Holding hydrocodone/acetaminophen 7.5/325 1 tablet every 8 hours. Holding acetaminophen 650 mg by tube every 6 hours scheduled. Home medication Holding modafinil 200mg at night as needed/home medication Document acetaminophen above. Patient is on scheduled acetaminophen and hydrocodone/acetaminophen at home. Holding phenytoin levetiracetam 500 mg twice daily and mirtazapine 15 mg at night/home medications. CV: Essential hypertension Coronary artery disease Mild pulmonary hypertension Chronic diastolic heart failure History of SSS 2D echocardiogram 2005 revealed EF 50%. Moderate TR. PAP 50 mmHg Continue carvedilol but increase to 6.25 3.125 mg p.o. twice daily/home medication Continue furosemide 20 mg by tube daily Continue atorvastatin 20 mg daily Currently hemodynamically stable not requiring vasopressors and/or antihypertensives Resp: Acute and chronic respiratory failure Status post percutaneous tracheostomy by Dr. Burden 01/30 Currently on PRVC ventilation. Ventilator bundle Albuterol/ipratropium aerosols every 4 hours with albuterol aerosols every 2 hours as needed dyspnea Attempt CPAP trials today GI: Gastroesophageal reflux disease Chronic constipation Glucerna 1.5 at 50 cc an hour per nutrition recommendation with free water 100 cc every 6 hours Added Jarod 1 packet twice daily per nutrition's recommendation Lansoprazole for GI prophylaxis. On omeprazole 20 mg daily at home. Docusate sodium/senna 1 tablet twice daily for bowel regimen. Patient is on polythene glycol 17 g daily at the assisted. : Ruiz catheter placed for accurate I's and O's in a critically ill patient Remove per nursing protocol Endo: Sliding's scale insulin with aspart and with Accu-Cheks every 6 hours to maintain euglycemia/low regimen Renal: Creatinine currently within normal limits Monitor urine output Accurate I's and O's Heme: History of chronic apixaban use 2.5 mg twice daily Normocytic anemia Monitor CBC daily. Follow trends. No systemic anticoagulation per above ID: ESBL positive E. coli UTI History of Fern funguria 01/08 Treated C. difficile Complete 14 days therapy with meropenem stop date 02/03 Monitor for signs and symptomatology infection. Follow trends Ceftriaxone 01/07-01/11 -Urine culture ESBL E. coli, restarted ceftriaxone 01/20/2018, DCd and start Meropenem 01/21/18. Stop date 02/03/18 -Started on Fluconazole 01/12 (completed a total of 14 days) MSK: Sacral DTI Wound care evaluate and treat. FEN: Replace electrolytes as clinically indicated per ICU electrolyte protocol Access -Utilize peripheral IV. Central line if indicated Prophylaxis -GI -pantoprazole -DVT -SCD/heparin subcu Level 2 follow-up Code Status: Full code Discussed Condition With: RN. CARE plan discussed and all questions answered.
[2018-02-04] MEDS: Heparin - SQ 10,000 UNITS/ML Vial SQ SCH ×2 (08:15→20:36)
[2018-02-04] MEDS: Divalproex 125 MG Sprinkles Capsule G-TUBE SCH ×2 (08:16→20:36)
[2018-02-04] MEDS: Potassium Chloride 20 MEQ Pwd Pkt G-TUBE SCH (08:17)
[2018-02-04] MEDS: Furosemide Liq 40 MG/5 ML UDC NG/OG SCH (08:17)
[2018-02-04] MEDS: Multivitamin/Minerals Therapeutic Tablet PO SCH (08:18)
[2018-02-04] MEDS: Collagenase Oint 30 GM Tube TOPICAL SCH (08:18)
[2018-02-04 11:12] LABS: Baso # (Auto) 0.1 th/mm3 (0.0-0.2); Baso % (Auto) 1.4 % (0.0-2.0); Eos # (Auto) 0.3 th/mm3 (0.0-0.4); Hematocrit 26.7 % (35.0-46.0); Hemoglobin 8.8 gm/dL (11.6-15.3); Lymph # (Auto) 1.9 th/mm3 (1.0-4.8); Lymph % (Auto) 36.5 % (9.0-44.0); Mean Corpuscular Hemoglobin 30.6 pg (27.0-34.0); Mean Corpuscular Volume 92.8 fL (80.0-100.0); Mean Platelet Volume 7.9 fL (7.0-11.0); Mono # (Auto) 0.8 th/mm3 (0.0-0.9); Mono % (Auto) 16.1 % (0.0-8.0); Neut # (Auto) 2.1 th/mm3 (1.8-7.7); Platelet Count 452 th/mm3 (150-450); Red Blood Count 2.88 mil/mm3 (4.00-5.30); Red Cell Distribution Width 15.4 % (11.6-17.2); White Blood Count 5.2 th/mm3 (4.0-11.0)
[2018-02-04 11:20] LABS: Alanine Aminotransferase 43 U/L (10-53); Albumin 1.7 g/dL (3.4-5.0); Anion Gap 3 meq/L (5-15); Aspartate Aminotransferase 77 U/L (15-37); Blood Urea Nitrogen 19 mg/dL (7-18); Calcium 8.2 mg/dL (8.5-10.1); Carbon Dioxide 31.8 meq/L (21.0-32.0); Chloride 102 meq/L (98-107); Glomerular Filtration Rate Greater Than 89 mL/min (>89); Glucose,Random 122 mg/dL (74-106); Magnesium 1.9 mg/dL (1.5-2.5); Phosphorus 2.5 mg/dL (2.5-4.9); Potassium 5.2 meq/L (3.5-5.1); Sodium 137 meq/L (136-145)
[2018-02-04 11:24] LABS: Alkaline Phosphatase 179 U/L (45-117); Total Protein 6.1 g/dL (6.4-8.2)
[2018-02-04] MEDS: Hypromellose 0.3% Opth Gel 10 GM Bottle EACH EYE SCH (20:37)
[2018-02-05] MEDS: Insulin NovoLOG Aspart Correctional Sugar Inj SQ SCH ×4 (00:15→18:00)
--- NOTE | 2018-02-05 07:33 | P.PNCC ---
Subjective Subjective Remarks/Hospital Course: 87 year old female admitted initially for evaluation of a witnessed seizure. The patient is [facility] resident with multiple medical issues, including history of seizures on Keppra. Per chart review her baseline is alert, confused , and often combative at a [facility]. She is verbal. She is able to feed herself; she consumes a pureed, nectar-thick diet. She spends most of her time in chair, with limited mobility. She was admitted to [place] in December 18 for the above, while in the hospital she developed right MCA stroke with significant damage of almost entire right hemisphere. The patient's daughter is a ICU nurse at outside of [facility] facility , who is requesting to continue aggressive management. Today early in the morning the patient developed respiratory arrest flowed by a cardiac arrest requiring multiple cycles of CPR and epinephrine injections. The initial rhythm was PEA versus asystolic. After approximately 15 minutes of CPR the patient regained spontaneous circulation. She was intubated just prior to arrest, and later central line and A-line was used due to hemodynamic instability. The patient's daughter was called during the CPR and again requested full code and aggressive management. 01/16 1000 hrs: Gas exchange now acceptable and pH problems have been corrected with ventilator manipulations. The etiology of the rest appears to have been a hypercapnic respiratory acidosis superimposed on a large dominant hemisphere acute stroke. Chest x-ray reviewed tubes and lines in good position. Cardiac rhythm appears to be atrial paced. The QRS is wide and I suspect within there somewhere is a sequential ventricular spike although I do not see it on the monitor. Potassium was elevated at 5.8 we will follow that closely. At present she is requiring 8 mcg/min of epinephrine and urine output has been about 40 mL's. Patient remains critically ill. 01/17: no improvements. severely encephalopathic. remains on epinephrine, although digits are now dusky and our vasopressors may be causing more harm than any improvements at this point. will be forced to use ivf for perfusion instead of epinephrine. I was unable to reach family today, though the family medicine service updated the family and they press on for aggressive measures. unlikely to have any meaningful recovery given large stroke superimposed on baseline poor functionality. 01/18: Remains lethargic but opens eyes to painful stimuli. Involuntarily grasped with the right hand. Left upper extremity is flaccid but withdraws bilateral lower extremity. Dilantin level was elevated on 01/16/2016 will recheck level today and tomorrow morning. Discussed in detail with daughter Kaci 01/19: Neuro exam remains unchanged no improvement in encephalopathy. Dilantin level remains elevated at 24.5, albumin corrected will be much higher. Updated daughter Kaci, she will meet with palliative care today 01/20: Patient is still obtunded encephalopathy. Dilantin level further down 20.3. No seizures. Family at this time wants to continue aggressive care. Patient remains hemodynamically more stable. Urine culture growing gram- negative rods started on Rocephin 01/21: Neuro status remains unchanged remains obtunded encephalopathic. Dilantin level improved to 16.2 today. Urine culture growing ESBL E. coli. Rocephin was discontinued, started on meropenem 1 g IV every 8 hours 01/22: Patient remains intubated remains completely off all sedation for several days. Dilantin level down to 14.2 uncorrected. Slightly more responsive to painful stimuli, continues to have partial eye opening. 01/23: No significant improvement in neuro exam though opening eyes more with stimulation. Dilantin level coming down today 12.8. Albumin is 1.5 corrected level is about 30 mcg/ml. daughter wants to wait a few more days prior to deciding on trach versus withdrawal. 01/24: No real change in neurologic exam. She does move her right arm spontaneously. Her eyes open but I cannot seem to convince myself that she tracks. Blood pressure well controlled. Unable to wean from ventilator. 01/25: No improvement in neurologic exam. She fails CPAP trials when breathing spontaneously and will likely need a tracheostomy. I will discuss with the palliative care service whether the family would like to pursue the trach and PEG route. 01/26: Remains without suitable response to stimulation. Apneic episodes while on spontaneous breathing trials. 01/27: Her eyes are more widely open today. She clearly tracks motion around the room and appears to respond to questions. She moves her right arm and hand weakly to command. This is considerable improvement from yesterday. She remains very weak on spontaneous breathing trials requiring 17 cm water of pressure support. 01/28: Again today she opens her eyes spontaneously intends to track with her eyes. Her respiratory effort remains weak but she has improved stamina over the past 48 hours. I think she would recognize her family at this point. We await their decision on whether to proceed with tracheostomy. 01/29: A little more lethargic today. She opens her eyes but not with the alertness of yesterday. She failed CPAP trials again today and less quite high pressure support is used. The daughter Kaci would like to proceed with tracheostomy despite the fact that recovery may be limited. 01/30: Patient continued to have inadequate tidal volumes during attempted spontaneous breathing trials this morning. Per daughter's wishes we proceeded with the placement of a tracheostomy. The woman required some sedation for this procedure and we anticipate that it may take a day or so for her to recover completely from the analgesia and sedation. 01/31: Currently on PSV trial 06/08 at 35% arousable. Will inadvertently squeeze right upper extremity only at the present time. Tube feeds will be changed to Glucerna 1.5 per nutrition's recommendations at 50 cc an hour 02/01: Patient remains on CPAP via trach. Not on any sedation. Somnolent but wakes up, tracks today. Not following commands 02/02: Tolerating T piece today. Neuro remains unchanged. Opens eyes to stimulation. Increase T piece time to 8-10 hours from today 02/03: Patient had episode of apnea. Back on a rate on the ventilator. Will attempt CPAP trial again today. No T piece trial today. Tolerating tube feeding. Positive BM. Opens eyes to stimulation's and moves right upper extremity. 02/04: Resting comfortably in bed in no acute distress. Lasted T-piece from 11 a.m. to 9 PM yesterday. Currently on CPAP trial. Afebrile. Tolerating tube feeding. SUBJECTIVE: 02/05: Currently in T piece trial. Tolerating tube feeding. Afebrile. Neurologic unchanged. Eyes open to moving right upper extremity spontaneously. Positive BM. Objective Vital Signs / I&O: Vital Signs 02/04/18 08:00 02/04/18 08:29 02/04/18 09:03 Temperature 98.6 F Pulse Rate 79 78 Respiratory Rate 14 19 Blood Pressure 139/72 Pulse Oximetry 100 100 100 02/04/18 11:00 02/04/18 12:00 02/04/18 13:03 Temperature 97.8 F Pulse Rate 70 69 75 Respiratory Rate 25 H 24 Blood Pressure 118/64 Pulse Oximetry 100 02/04/18 13:04 02/04/18 15:00 02/04/18 16:00 Temperature 98.2 F Pulse Rate 65 64 Respiratory Rate 18 Blood Pressure 122/62 Pulse Oximetry 100 100 02/04/18 20:00 02/04/18 20:52 02/04/18 20:54 Temperature 97.6 F Pulse Rate 65 87 Respiratory Rate 19 20 Blood Pressure 158/75 H Pulse Oximetry 100 97 02/05/18 00:00 02/05/18 00:26 02/05/18 04:00 Temperature 96.1 F L 96.3 F L Pulse Rate 64 65 71 Respiratory Rate 24 21 16 Blood Pressure 151/70 H 152/70 H Pulse Oximetry 100 100 100 02/05/18 05:21 Temperature Pulse Rate 67 Respiratory Rate 20 Blood Pressure Pulse Oximetry 100 Intake & Output 02/04/18 02/05/18 02/05/18 18:59 06:59 18:59 Intake Total 4770 / 4770 890 / 890 Output Total 2300 / 2300 650 / 650 Balance 2470 / 2470 240 / 240 Weight 65.9 kg Intake: Oral 0 / 0 0 / 0 Tube Feeding 1183 / 1183 490 / 490 Tube Irrigant 400 / 400 200 / 200 Water Bolus Amount 200 / 200 200 / 200 Other 2987 / 2987 Output: Urine 700 / 700 Urine Amount (Catheter) 1600 / 1600 650 / 650 Indwelling Temp Sensing 1600 / 1600 650 / 650 Catheter Other: # Voids 200 # Incontinent Voids 3 Date of Last Bowel Movement 02/04/18 02/04/18 # Incontinent Bowel Movements 3 2 Result Diagrams: 02/04/18 10:27 02/04/18 10:27 Other Results: Microbiology 01/18/18 16:20 Catheterized Urine Urine Culture - Final Escherichia coli ESBL positive 01/08/18 22:04 Blood - Peripheral Aerobic Blood Culture - Final No growth in 5 days 01/08/18 22:04 Blood - Peripheral Anaerobic Blood Culture - Final No growth in 5 days 01/08/18 22:04 Blood - Peripheral Aerobic Blood Culture - Final No growth in 5 days 01/08/18 22:04 Blood - Peripheral Anaerobic Blood Culture - Final No growth in 5 days 01/08/18 17:10 Catheterized Urine Urine Culture - Final Fern albicans 01/03/18 00:30 Catheterized Urine Urine Culture - Final No growth in 48 hours Imaging: Chest X-Ray 01/02/18 00:00 CONCLUSION: 1. Bibasilar haziness consistent with atelectasis and/or mild infiltrates. 2. Cardiomegaly. 3. Degenerative changes and scoliosis of the thoracic spine. Head CT 01/03/18 00:00 CONCLUSION: 1. New large nonhemorrhagic infarct involving the right MCA territory 2. 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 Chest X-Ray 01/07/18 00:00 CONCLUSION: No focal or acute pulmonary infiltrates. No significant changes compared to the prior exam. Head CT 01/08/18 00:00 CONCLUSION: 1. Large evolving infarct on the right slight increase in swelling in effacement of the right lateral ventricle but without significant midline shift. Remote left cerebellar infarct. Chest X-Ray 01/12/18 00:00 CONCLUSION: Moderate consolidative changes left base that have progressed in the interval with some trace bronchograms. Head CT 01/13/18 00:00 CONCLUSION: 1. Continued evolution of right middle cerebral artery distribution infarct without evidence of acute hemorrhage Chest X-Ray 01/16/18 03:17 CONCLUSION: Interval intubation and right neck central line placement without complication. Stable infiltrates and effusions. Chest X-Ray 01/17/18 04:00 CONCLUSION: Cardiomegaly with basilar airspace consolidation and small effusions similar to January 16. Head CT 01/19/18 00:00 CONCLUSION: 1. Stable appearance to the right MCA infarction; no evidence of acute blood products or mass effect. Chest X-Ray 01/30/18 00:00 CONCLUSION: Left lung base opacity is present may be due to a combination of consolidation and or pleural effusion, mild pulmonary edema suspected as well. Chest X-Ray 02/02/18 12:33 CONCLUSION: 1. Cardiomegaly. 2. Left basilar consolidation. 3. Stable compared to previous dated 01/30/2018. Objective Remarks: GEN: 87-year-old frail elderly female, lying in bed, spontaneous eye opening. HEENT: pupils are 2 mm, equal, reactive. mucous membranes moist. Neck: trachea midline. Tracheostomy site is clean dry without erythema. Sutures intact. Chest: intubated. Equal chest rise. No adventitious sounds. On ventilator via tracheostomy on CPAP CV: normal rate, regular rhythm. No JVD. GI: soft, nontender, nondistended. no guarding. EXT: Tepid, poorly perfused. Trace to 1 1+ edema. Neuro: Spontaneous eye opening. Spontaneously moving right upper extremity. Withdraws bilateral lower extremities to noxious stimulation. Left upper extremity is flaccid. Tracks with eyes SKIN: - Sacral DTI. 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 Carolina, overall prognosis poor per Dr. Carolina -Aspirin chew 324 milligrams daily -Sepsis and phenytoin toxicity may be contributing to altered mental status Currently on divalproex 500 mg twice daily. Level in a.m. 02/01 is low 14, but clinically stable. Recheck 02/07 a.m. Holding home medications gabapentin 100 mg twice daily. Holding hydrocodone/acetaminophen 7.5/325 1 tablet every 8 hours. Holding acetaminophen 650 mg by tube every 6 hours scheduled. Home medication Holding modafinil 200mg at night as needed/home medication Document acetaminophen above. Patient is on scheduled acetaminophen and hydrocodone/acetaminophen at home. Holding phenytoin levetiracetam 500 mg twice daily and mirtazapine 15 mg at night/home medications. CV: Essential hypertension Coronary artery disease Mild pulmonary hypertension Chronic diastolic heart failure History of SSS 2D echocardiogram 2005 revealed EF 50%. Moderate TR. PAP 50 mmHg Continue carvedilol but increase to 6.25 3.125 mg p.o. twice daily/home medication Continue furosemide 20 mg by tube daily Continue atorvastatin 20 mg daily Currently hemodynamically stable not requiring vasopressors and/or antihypertensives Resp: Acute and chronic respiratory failure Status post percutaneous tracheostomy by Dr. Burden 01/30 [facility]. Ventilator bundle Albuterol/ipratropium aerosols every 4 hours with albuterol aerosols every 2 hours as needed dyspnea Attempt CPAP trials today GI: Gastroesophageal reflux disease Chronic constipation Glucerna 1.5 at 50 cc an hour per nutrition recommendation with free water 100 cc every 6 hours Continue Jarod 1 packet twice daily per nutrition's recommendation Lansoprazole for GI prophylaxis. On omeprazole 20 mg daily at home. Docusate sodium/senna 1 tablet twice daily for bowel regimen. Patient is on polythene glycol 17 g daily at the [facility]. : Ruiz catheter placed for accurate I's and O's in a critically ill patient Remove per nursing protocol Endo: Sliding's scale insulin with aspart and with Accu-Cheks every 6 hours to maintain euglycemia/low regimen Renal: Creatinine currently within normal limits Monitor urine output Accurate I's and O's Heme: History of chronic apixaban use 2.5 mg twice daily Normocytic anemia Monitor CBC daily. Follow trends. No systemic anticoagulation per above ID: ESBL positive E. coli UTI History of Fern funguria 01/08 Treated C. difficile Complete 14 days therapy with meropenem stop date 02/03 Monitor for signs and symptomatology infection. Follow trends Ceftriaxone 01/07-01/11 -Urine culture ESBL E. coli, restarted ceftriaxone 01/20/2018, DCd and start Meropenem 01/21/18. Stop date 02/03/18 -Started on Fluconazole 01/12 (completed a total of 14 days) MSK: Sacral DTI Wound care evaluate and treat. FEN: Hyperkalemia Replace electrolytes as clinically indicated per ICU electrolyte protocol Recheck BMP in a.m. 02/06. Access -Utilize peripheral IV. Central line if indicated Prophylaxis -GI -lansoprazole -DVT -SCD/heparin subcu Level 2 follow-up
[2018-02-05] MEDS: Potassium Chloride 20 MEQ Pwd Pkt G-TUBE SCH (08:54)
[2018-02-05] MEDS: Divalproex 125 MG Sprinkles Capsule G-TUBE SCH ×2 (09:23→21:10)
[2018-02-05] MEDS: Multivitamin/Minerals Therapeutic Tablet PO SCH (09:23)
[2018-02-05] MEDS: Furosemide Liq 40 MG/5 ML UDC NG/OG SCH (09:24)
[2018-02-05] MEDS: Heparin - SQ 10,000 UNITS/ML Vial SQ SCH ×2 (09:24→21:10)
[2018-02-05] MEDS: Collagenase Oint 30 GM Tube TOPICAL SCH (09:25)
[2018-02-05] MEDS: Hypromellose 0.3% Opth Gel 10 GM Bottle EACH EYE SCH (21:12)
[2018-02-06] MEDS: Insulin NovoLOG Aspart Correctional Sugar Inj SQ SCH ×4 (00:36→21:59)
[2018-02-06 05:16] LABS: Baso # (Auto) 0.1 th/mm3 (0.0-0.2); Baso % (Auto) 1.3 % (0.0-2.0); Eos # (Auto) 0.3 th/mm3 (0.0-0.4); Eos % (Auto) 6.9 % (0.0-4.0); Hematocrit 24.4 % (35.0-46.0); Hemoglobin 8.1 gm/dL (11.6-15.3); Lymph # (Auto) 1.8 th/mm3 (1.0-4.8); Lymph % (Auto) 46.9 % (9.0-44.0); Mean Corpuscular HGB Conc 33.3 % (32.0-36.0); Mean Corpuscular Hemoglobin 31.1 pg (27.0-34.0); Mean Corpuscular Volume 93.3 fL (80.0-100.0); Mono # (Auto) 0.6 th/mm3 (0.0-0.9); Mono % (Auto) 14.8 % (0.0-8.0); Neut # (Auto) 1.2 th/mm3 (1.8-7.7); Neut % (Auto) 30.1 % (16.0-70.0); Platelet Count 416 th/mm3 (150-450); Red Blood Count 2.61 mil/mm3 (4.00-5.30); Red Cell Distribution Width 14.9 % (11.6-17.2); White Blood Count 3.8 th/mm3 (4.0-11.0)
[2018-02-06 05:33] LABS: Anion Gap 6 meq/L (5-15); Blood Urea Nitrogen 28 mg/dL (7-18); Calcium 8.5 mg/dL (8.5-10.1); Carbon Dioxide 32.9 meq/L (21.0-32.0); Chloride 101 meq/L (98-107); Glomerular Filtration Rate Greater Than 89 mL/min (>89); Glucose,Random 97 mg/dL (74-106); Magnesium 1.9 mg/dL (1.5-2.5); Potassium 4.6 meq/L (3.5-5.1); Sodium 140 meq/L (136-145)
[2018-02-06 05:35] LABS: Phosphorus 2.1 mg/dL (2.5-4.9)
--- NOTE | 2018-02-06 08:22 | P.PNCC ---
Subjective Subjective Remarks/Hospital Course: 87 year old female admitted initially for evaluation of a witnessed seizure. The patient is detention resident with multiple medical issues, including history of seizures on Keppra. Per chart review her baseline is alert, confused , and often combative at a detention. She is verbal. She is able to feed herself; she consumes a pureed, nectar-thick diet. She spends most of her time in chair, with limited mobility. She was admitted to [facility] in December 18 for the above, while in the hospital she developed right MCA stroke with significant damage of almost entire right hemisphere. The patient's daughter is a ICU nurse at outside of [facility] , who is requesting to continue aggressive management. Today early in the morning the patient developed respiratory arrest flowed by a cardiac arrest requiring multiple cycles of CPR and epinephrine injections. The initial rhythm was PEA versus asystolic. After approximately 15 minutes of CPR the patient regained spontaneous circulation. She was intubated just prior to arrest, and later central line and A-line was used due to hemodynamic instability. The patient's daughter was called during the CPR and again requested full code and aggressive management. 01/16 1000 hrs: Gas exchange now acceptable and pH problems have been corrected with ventilator manipulations. The etiology of the rest appears to have been a hypercapnic respiratory acidosis superimposed on a large dominant hemisphere acute stroke. Chest x-ray reviewed tubes and lines in good position. Cardiac rhythm appears to be atrial paced. The QRS is wide and I suspect within there somewhere is a sequential ventricular spike although I do not see it on the monitor. Potassium was elevated at 5.8 we will follow that closely. At present she is requiring 8 mcg/min of epinephrine and urine output has been about 40 mL's. Patient remains critically ill. 01/17: no improvements. severely encephalopathic. remains on epinephrine, although digits are now dusky and our vasopressors may be causing more harm than any improvements at this point. will be forced to use ivf for perfusion instead of epinephrine. I was unable to reach family today, though the family medicine service updated the family and they press on for aggressive measures. unlikely to have any meaningful recovery given large stroke superimposed on baseline poor functionality. 01/18: Remains lethargic but opens eyes to painful stimuli. Involuntarily grasped with the right hand. Left upper extremity is flaccid but withdraws bilateral lower extremity. Dilantin level was elevated on 01/16/2016 will recheck level today and tomorrow morning. Discussed in detail with daughter Kaci 01/19: Neuro exam remains unchanged no improvement in encephalopathy. Dilantin level remains elevated at 24.5, albumin corrected will be much higher. Updated daughter Kaci, she will meet with palliative care today 01/20: Patient is still obtunded encephalopathy. Dilantin level further down 20.3. No seizures. Family at this time wants to continue aggressive care. Patient remains hemodynamically more stable. Urine culture growing gram- negative rods started on Rocephin 01/21: Neuro status remains unchanged remains obtunded encephalopathic. Dilantin level improved to 16.2 today. Urine culture growing ESBL E. coli. Rocephin was discontinued, started on meropenem 1 g IV every 8 hours 01/22: Patient remains intubated remains completely off all sedation for several days. Dilantin level down to 14.2 uncorrected. Slightly more responsive to painful stimuli, continues to have partial eye opening. 01/23: No significant improvement in neuro exam though opening eyes more with stimulation. Dilantin level coming down today 12.8. Albumin is 1.5 corrected level is about 30 mcg/ml. daughter wants to wait a few more days prior to deciding on trach versus withdrawal. 01/24: No real change in neurologic exam. She does move her right arm spontaneously. Her eyes open but I cannot seem to convince myself that she tracks. Blood pressure well controlled. Unable to wean from ventilator. 01/25: No improvement in neurologic exam. She fails CPAP trials when breathing spontaneously and will likely need a tracheostomy. I will discuss with the palliative care service whether the family would like to pursue the trach and PEG route. 01/26: Remains without suitable response to stimulation. Apneic episodes while on spontaneous breathing trials. 01/27: Her eyes are more widely open today. She clearly tracks motion around the room and appears to respond to questions. She moves her right arm and hand weakly to command. This is considerable improvement from yesterday. She remains very weak on spontaneous breathing trials requiring 17 cm water of pressure support. 01/28: Again today she opens her eyes spontaneously intends to track with her eyes. Her respiratory effort remains weak but she has improved stamina over the past 48 hours. I think she would recognize her family at this point. We await their decision on whether to proceed with tracheostomy. 01/29: A little more lethargic today. She opens her eyes but not with the alertness of yesterday. She failed CPAP trials again today and less quite high pressure support is used. The daughter Kaci would like to proceed with tracheostomy despite the fact that recovery may be limited. 01/30: Patient continued to have inadequate tidal volumes during attempted spontaneous breathing trials this morning. Per daughter's wishes we proceeded with the placement of a tracheostomy. The woman required some sedation for this procedure and we anticipate that it may take a day or so for her to recover completely from the analgesia and sedation. 01/31: Currently on PSV trial 06/08 at 35% arousable. Will inadvertently squeeze right upper extremity only at the present time. Tube feeds will be changed to Glucerna 1.5 per nutrition's recommendations at 50 cc an hour 02/01: Patient remains on CPAP via trach. Not on any sedation. Somnolent but wakes up, tracks today. Not following commands 02/02: Tolerating T piece today. Neuro remains unchanged. Opens eyes to stimulation. Increase T piece time to 8-10 hours from today 02/03: Patient had episode of apnea. Back on a rate on the ventilator. Will attempt CPAP trial again today. No T piece trial today. Tolerating tube feeding. Positive BM. Opens eyes to stimulation's and moves right upper extremity. 02/04: Resting comfortably in bed in no acute distress. Lasted T-piece from 11 a.m. to 9 PM yesterday. Currently on CPAP trial. Afebrile. Tolerating tube feeding. 02/05: Currently in T piece trial. Tolerating tube feeding. Afebrile. Neurologic unchanged. Eyes open to moving right upper extremity spontaneously. Positive BM. SUBJECTIVE: 02/06: Remains on T piece trial. Afebrile. No bowel movement yesterday. Neurologically unchanged. Discussed with daughter yesterday. Request neurology to reevaluate on Wednesday. Objective Vital Signs / I&O: Vital Signs 02/05/18 08:36 02/05/18 11:00 02/05/18 12:00 Temperature 98.4 F Pulse Rate 83 69 69 Respiratory Rate 20 20 Blood Pressure 144/71 H Pulse Oximetry 100 100 02/05/18 12:57 02/05/18 15:00 02/05/18 16:00 Temperature 98.9 F Pulse Rate 79 56 L 56 L Respiratory Rate 18 20 Blood Pressure 127/71 Pulse Oximetry 100 02/05/18 16:38 02/05/18 19:00 02/05/18 20:00 Temperature 97.6 F Pulse Rate 74 53 L 62 Respiratory Rate 19 18 Blood Pressure 113/67 Pulse Oximetry 100 02/05/18 20:11 02/05/18 23:00 02/05/18 23:33 Temperature Pulse Rate 66 64 65 Respiratory Rate 24 18 Blood Pressure Pulse Oximetry 100 02/06/18 00:00 02/06/18 03:00 02/06/18 03:26 Temperature 97.6 F Pulse Rate 74 83 85 Respiratory Rate 19 22 Blood Pressure 129/61 Pulse Oximetry 100 02/06/18 03:28 02/06/18 04:00 02/06/18 08:13 Temperature 97.5 F L Pulse Rate 80 69 Respiratory Rate 29 H 16 Blood Pressure 124/98 H Pulse Oximetry 96 100 100 Intake & Output 02/05/18 02/06/18 02/06/18 18:59 06:59 18:59 Intake Total 906 / 906 606 / 606 Output Total 950 / 950 550 / 550 Balance -44 / -44 56 / 56 Intake: Tube Feeding 656 / 656 446 / 446 Tube Irrigant 50 / 50 160 / 160 Water Bolus Amount 200 / 200 Output: Urine Amount (Catheter) 700 / 700 550 / 550 Indwelling Temp Sensing 700 / 700 550 / 550 Catheter Gastric Drainage 250 / 250 Left Upper Quadrant Gastrostomy 250 / 250 Tube (PEG) Other: Date of Last Bowel Movement 02/04/18 # Bowel Movements 0 # Incontinent Bowel Movements 0 Result Diagrams: 02/06/18 04:30 02/06/18 04:30 Other Results: Microbiology 01/18/18 16:20 Catheterized Urine Urine Culture - Final Escherichia coli ESBL positive 01/08/18 22:04 Blood - Peripheral Aerobic Blood Culture - Final No growth in 5 days 01/08/18 22:04 Blood - Peripheral Anaerobic Blood Culture - Final No growth in 5 days 01/08/18 22:04 Blood - Peripheral Aerobic Blood Culture - Final No growth in 5 days 01/08/18 22:04 Blood - Peripheral Anaerobic Blood Culture - Final No growth in 5 days 01/08/18 17:10 Catheterized Urine Urine Culture - Final Fern albicans 01/03/18 00:30 Catheterized Urine Urine Culture - Final No growth in 48 hours Imaging: Chest X-Ray 01/02/18 00:00 CONCLUSION: 1. Bibasilar haziness consistent with atelectasis and/or mild infiltrates. 2. Cardiomegaly. 3. Degenerative changes and scoliosis of the thoracic spine. Head CT 01/03/18 00:00 CONCLUSION: 1. New large nonhemorrhagic infarct involving the right MCA territory 2. 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 Chest X-Ray 01/07/18 00:00 CONCLUSION: No focal or acute pulmonary infiltrates. No significant changes compared to the prior exam. Head CT 01/08/18 00:00 CONCLUSION: 1. Large evolving infarct on the right slight increase in swelling in effacement of the right lateral ventricle but without significant midline shift. Remote left cerebellar infarct. Chest X-Ray 01/12/18 00:00 CONCLUSION: Moderate consolidative changes left base that have progressed in the interval with some trace bronchograms. Head CT 01/13/18 00:00 CONCLUSION: 1. Continued evolution of right middle cerebral artery distribution infarct without evidence of acute hemorrhage Chest X-Ray 01/16/18 03:17 CONCLUSION: Interval intubation and right neck central line placement without complication. Stable infiltrates and effusions. Chest X-Ray 01/17/18 04:00 CONCLUSION: Cardiomegaly with basilar airspace consolidation and small effusions similar to January 16. Head CT 01/19/18 00:00 CONCLUSION: 1. Stable appearance to the right MCA infarction; no evidence of acute blood products or mass effect. Chest X-Ray 01/30/18 00:00 CONCLUSION: Left lung base opacity is present may be due to a combination of consolidation and or pleural effusion, mild pulmonary edema suspected as well. Chest X-Ray 02/02/18 12:33 CONCLUSION: 1. Cardiomegaly. 2. Left basilar consolidation. 3. Stable compared to previous dated 01/30/2018. Objective Remarks: GEN: 87-year-old frail elderly female, lying in bed, spontaneous eye opening. HEENT: pupils are 2 mm, equal, reactive. mucous membranes moist. Neck: trachea midline. Tracheostomy site is clean dry without erythema. Sutures intact. Chest: intubated. Equal chest rise. No adventitious sounds. On ventilator via tracheostomy on CPAP CV: normal rate, regular rhythm. No JVD. GI: soft, nontender, nondistended. no guarding. EXT: Tepid, poorly perfused. Trace to 1 1+ edema. Neuro: Spontaneous eye opening. Spontaneously moving right upper extremity. Withdraws bilateral lower extremities to noxious stimulation. Left upper extremity is flaccid. Tracks with eyes SKIN: - Sacral DTI. 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 Carolina, overall prognosis poor per Dr. Carolina. Last seen 01/21. Family requesting update on Wednesday. -Aspirin chew 324 milligrams daily -Sepsis and phenytoin toxicity may be contributing to altered mental status Currently on divalproex 500 mg twice daily. Level in a.m. 02/01 is low 14, but clinically stable. Recheck 02/07 a.m. Holding home medications gabapentin 100 mg twice daily. Holding hydrocodone/acetaminophen 7.5/325 1 tablet every 8 hours. Holding acetaminophen 650 mg by tube every 6 hours scheduled. Home medication Holding modafinil 200mg at night as needed/home medication Document acetaminophen above. Patient is on scheduled acetaminophen and hydrocodone/acetaminophen at home. Holding phenytoin levetiracetam 500 mg twice daily and mirtazapine 15 mg at night/home medications. CV: Essential hypertension Coronary artery disease Mild pulmonary hypertension Chronic diastolic heart failure History of SSS 2D echocardiogram 2005 revealed EF 50%. Moderate TR. PAP 50 mmHg Continue carvedilol 6.25 mg p.o. twice daily/home medication Continue furosemide 20 mg by tube daily Continue atorvastatin 20 mg daily Currently hemodynamically stable not requiring vasopressors and/or antihypertensives Resp: Acute and chronic respiratory failure Status post percutaneous tracheostomy by Dr. Burden 01/30 Currently on T-piece at 28% FiO2 Tracheostomy cares Albuterol/ipratropium aerosols every 4 hours with albuterol aerosols every 2 hours as needed dyspnea As needed CPAP trials GI: Gastroesophageal reflux disease Chronic constipation Glucerna 1.5 at 50 cc an hour per nutrition recommendation with free water 100 cc every 8 hours. Currently on 30 cc an hour. Continue Jarod 1 packet twice daily per nutrition's recommendation Lansoprazole for GI prophylaxis. On omeprazole 20 mg daily at home. Docusate sodium liquid 100 mg twice daily. Polythene glycol 17 g daily. Metoclopramide 5 mg 3x daily : Ruiz catheter placed for accurate I's and O's in a critically ill patient tested sacral decubitus ulcer Remove per nursing protocol Endo: Sliding's scale insulin with aspart and with Accu-Cheks every 12 hours to maintain euglycemia/low regimen Renal: Creatinine currently within normal limits Monitor urine output Accurate I's and O's Heme: History of chronic apixaban use 2.5 mg twice daily Normocytic anemia Monitor CBC daily. Follow trends. No systemic anticoagulation per above ID: ESBL positive E. coli UTI History of Fern funguria 01/08 Treated C. difficile Complete 14 days therapy with meropenem stop date 02/03 Monitor for signs and symptomatology infection. Follow trends Ceftriaxone 01/07-01/11 -Urine culture ESBL E. coli, restarted ceftriaxone 01/20/2018, DCd and start Meropenem 01/21/18. Stop date 02/03/18 -Started on Fluconazole 01/12 (completed a total of 14 days) MSK: Sacral DTI Wound care evaluate and treat. FEN: Replace electrolytes as clinically indicated per ICU electrolyte protocol Recheck BMP in .. 02/07 Access -Utilize peripheral IV. Central line if indicated Prophylaxis -GI -lansoprazole -DVT -SCD/heparin subcu Level 2 follow-up Stable from critical care medicine standpoint. Assign care to hospitalist in a.m. 02/07. Will consult pulmonology for tracheostomy management.
[2018-02-06] MEDS: Divalproex 125 MG Sprinkles Capsule G-TUBE SCH ×2 (08:46→20:59)
[2018-02-06] MEDS: Docusate Sodium Liq 100 MG/10 ML UDC G-TUBE SCH ×2 (08:46→22:00)
[2018-02-06] MEDS: Heparin - SQ 10,000 UNITS/ML Vial SQ SCH ×2 (08:46→20:59)
[2018-02-06] MEDS: Multivitamin/Minerals Therapeutic Tablet PO SCH (08:47)
[2018-02-06] MEDS: Sodium Phosphate Inj 30 MMOL in Sodium Chlor 0.9% Inj 250 ML IV.SIG PRN (08:47)
[2018-02-06] MEDS: Collagenase Oint 30 GM Tube TOPICAL SCH (08:48)
[2018-02-06] MEDS: Polyethylene Glycol 3350 17 GM Packet PO SCH (10:08)
[2018-02-06] MEDS: Potassium Chloride 20 MEQ Pwd Pkt G-TUBE SCH (10:42)
[2018-02-06] MEDS: Furosemide Liq 40 MG/5 ML UDC NG/OG SCH (10:42)
[2018-02-06] MEDS: Hypromellose 0.3% Opth Gel 10 GM Bottle EACH EYE SCH (21:00)
[2018-02-07 03:48] LABS: Hematocrit 27.4 % (35.0-46.0); Mean Corpuscular HGB Conc 32.9 % (32.0-36.0); Mean Corpuscular Hemoglobin 30.5 pg (27.0-34.0); Mean Corpuscular Volume 92.6 fL (80.0-100.0); Mean Platelet Volume 8.2 fL (7.0-11.0); Platelet Count 488 th/mm3 (150-450); Red Blood Count 2.96 mil/mm3 (4.00-5.30); Red Cell Distribution Width 15.2 % (11.6-17.2); White Blood Count 3.9 th/mm3 (4.0-11.0)
[2018-02-07 04:20] LABS: Alanine Aminotransferase 38 U/L (10-53); Albumin 1.7 g/dL (3.4-5.0); Alkaline Phosphatase 156 U/L (45-117); Anion Gap 4 meq/L (5-15); Aspartate Aminotransferase 62 U/L (15-37); Blood Urea Nitrogen 32 mg/dL (7-18); Calcium 7.8 mg/dL (8.5-10.1); Carbon Dioxide 35.9 meq/L (21.0-32.0); Chloride 101 meq/L (98-107); Glomerular Filtration Rate Greater Than 89 mL/min (>89); Glucose,Random 92 mg/dL (74-106); Phosphorus 3.8 mg/dL (2.5-4.9); Potassium 4.8 meq/L (3.5-5.1); Sodium 141 meq/L (136-145); Total Protein 5.9 g/dL (6.4-8.2); Valproic Acid 34 mcg/mL (50-100)
--- NOTE | 2018-02-07 04:43 | XR ---
EXAM DATE: 02/07/2018 4:41 AM EDT AGE/SEX: 87 years / Female INDICATIONS: Respiratory distress. CLINICAL DATA: This is the patient's subsequent encounter. Patient reports that signs and symptoms h ave been present for 4 - 6 days and indicates a pain score of Nonresponsive. MEDICAL/SURGICAL HISTORY: . Hypertension, CHF, CVA. Left side weakness, dementia, seizure, arth ritis . Pacemaker. hysterectomy, cervical fusion, right hip replacement. COMPARISON: [facility] [place], CHEST 1V SINGLE AP, 02/02/2018. . FINDINGS: There is cardiomegaly, tracheostomy tube and a pacer/ICD device. Left lower lobe airspace disease. Sm all effusions suspected improved on the right. CONCLUSION: Slight improved aeration on the right. Electronically signed by: Haim Moran MD 02/07/2018 4:42 AM EDT
[2018-02-07 05:20] LABS: Eosinophils 4 % (0-4); Lymphocytes 43 % (9-44); Monocytes 15 % (0-8)
[2018-02-07 05:21] LABS: Ovalocytes 1+; Platelet Morphology Normal (Normal)
--- NOTE | 2018-02-07 07:46 | P.PN ---
Subjective Interval history: Pt seen and examined for f/u of R MCA CVA and respiratory failure. She is resting in bed with tracheostomy in place. Opens her eyes. L-sided hemiparesis. Moves RUE and follows simple commands (i.e. right hand squeeze). She otherwise does not speak. Physical Exam Vital signs: Vital Signs 02/06/18 08:00 02/06/18 08:13 02/06/18 11:00 Temperature 98.0 F Pulse Rate 87 69 73 Respiratory Rate 19 16 Blood Pressure 140/65 Pulse Oximetry 100 100 02/06/18 11:33 02/06/18 12:00 02/06/18 15:00 Temperature 98.6 F Pulse Rate 74 73 73 Respiratory Rate 20 23 Blood Pressure 124/90 Pulse Oximetry 100 02/06/18 15:47 02/06/18 16:00 02/06/18 19:00 Temperature 97.8 F Pulse Rate 56 L 61 76 Respiratory Rate 17 21 Blood Pressure 119/61 Pulse Oximetry 100 02/06/18 19:49 02/06/18 20:00 02/06/18 23:00 Temperature 97.7 F Pulse Rate 71 68 64 Respiratory Rate 22 28 H Blood Pressure 119/57 L Pulse Oximetry 100 02/06/18 23:58 02/07/18 00:00 02/07/18 03:00 Temperature 97.2 F L Pulse Rate 71 58 L 88 Respiratory Rate 15 16 Blood Pressure 133/63 Pulse Oximetry 02/07/18 03:51 02/07/18 04:00 Temperature 97.5 F L Pulse Rate 78 78 Respiratory Rate 24 23 Blood Pressure 115/85 Pulse Oximetry 100 100 Intake & Output 02/06/18 02/07/18 02/07/18 18:59 06:59 18:59 Intake Total 853 / 853 793 / 793 Output Total 2099 575 / 575 Balance -1247 / -1247 218 / 218 Intake: IV 260 / 260 Sodium Phosphate Inj 30 MMOL In 260 / 260 NS Inj 250 ML @ 42 mls/hr IV. SIG UNSCH PRN Rx#:[id number] Tube Feeding 553 / 553 363 / 363 Tube Irrigant 170 / 170 Water Bolus Amount 300 / 300 Output: Urine Amount (Catheter) 2099 575 / 575 Indwelling Temp Sensing 2099 575 / 575 Catheter Other: Date of Last Bowel Movement 02/06/18 02/07/18 # Bowel Movements 2 2 Narrative: GENERAL: WN, WD AA female resting in bed. SKIN: Warm and dry. HEENT: AT/NC. Spontaneously opens eyes. Pupils equal and round. NECK: Trach in place with no surrounding erythema. HEART: RRR no m/r/g. LUNGS: CTAB without wheezes or crackles. ABDOMEN: +BS, soft, NT, ND. EXTREMITIES: No LE edema. 2+ pedal pulses. NEURO: Spontaneous eye opening. Moving RUE. LUE flaccid. Tracks with eyes. - Urinary Catheter Management Indwelling Temp Sensing Catheter Cath placed during this visit: yes Reason for continuing: Severe pressure ulcer/wound Insertion date: 01/16/18 Insertion time: 04:00 Results - Labs CBC & Chem 7: 02/07/18 02:45 02/07/18 02:45 Laboratory Results - last 24 hr 02/06/18 02/06/18 02/07/18 09:07 21:03 02:45 WBC RBC Hgb Hct MCV MCH MCHC RDW Plt Count MPV Prelim Diff (Auto) WBC Differential Seg Neuts % (Manual) Band Neuts % (Manual) Lymphocytes % (Manual) Monocytes % (Manual) Eosinophils % (Manual) Abs Neuts (Manual) Differential Comment Platelet Estimate Platelet Morphology Ovalocytes Sodium 141 Potassium 4.8 Chloride 101 Carbon Dioxide 35.9 H Anion Gap 4 L BUN 32 H Creatinine 0.31 L Estimated GFR Greater than 89 POC Glucose 123 H 128 H Random Glucose 92 Calcium 7.8 L Phosphorus 3.8 D Magnesium 2.0 Total Bilirubin 0.2 AST 62 H ALT 38 Alkaline Phosphatase 156 H Total Protein 5.9 L Albumin 1.7 L Valproic Acid 34 L 02/07/18 02:45 WBC 3.9 L RBC 2.96 L Hgb 9.0 L Hct 27.4 L MCV 92.6 MCH 30.5 MCHC 32.9 RDW 15.2 Plt Count 488 H MPV 8.2 Prelim Diff (Auto) Manual diff required WBC Differential Manual diff final Seg Neuts % (Manual) 37 Band Neuts % (Manual) 1 Lymphocytes % (Manual) 43 Monocytes % (Manual) 15 H Eosinophils % (Manual) 4 Abs Neuts (Manual) 1.5 L Differential Comment . Platelet Estimate High H Platelet Morphology Normal Ovalocytes 1+ H Sodium Potassium Chloride Carbon Dioxide Anion Gap BUN Creatinine Estimated GFR POC Glucose Random Glucose Calcium Phosphorus Magnesium Total Bilirubin AST ALT Alkaline Phosphatase Total Protein Albumin Valproic Acid - Imaging Impressions Chest X-Ray 02/07/18 06:00 CONCLUSION: Slight improved aeration on the right. Assessment and Plan - Assessment (1) Acute right MCA stroke Code(s): I63.511 - Cerebral infarction due to unspecified occlusion or stenosis of right middle cerebral artery Status: Acute (2) Seizure Code(s): R56.9 - Unspecified convulsions Status: Chronic (3) Sacral pressure ulcer Code(s): L89.159 - Pressure ulcer of sacral region, unspecified stage Status: Acute (4) Cardiopulmonary arrest with successful resuscitation Code(s): I46.9 - Cardiac arrest, cause unspecified Status: Resolved - Plan 87 year old female with history of seizure disorder brought to [facility] ED via EMS on 12/18 following a witnessed seizure. She was given Versed en-route to hospital and Keppra bolus in ED. Patient's GCS 8 at time of admission encounter. Patient originally admitted for evaluation and management of seizure versus CVA. New CVA in right MCA region found by head CT on 01/03 (likely the original inciting event for admission) with further evolution on 01/08. 1. R MCA CVA - Patient with large ischemic stroke involving R hemisphere despite being on Eliquis - High risk for hemorrhagic conversion therefore anticoagulation has been held - Neurology was following and last recommendation was on 01/14; at the time felt patient was neurologically clear for rehab and recommended f/u CT scan 2 weeks from that time - Last CT head was 01/19 showing stable appearance to the right MCA infarct with no evidence of acute blood products or mass effect - PT following - Rehab/SNF on discharge 2. Chronic respiratory failure - Tracheostomy in place - CXR this AM with improved aeration - On T-piece - Consult pulm for trach management - Supplemental O2 to maintain sats >92% 3. Seizure - Keppra and Dilantin discontinued this admission - Depakote level continues to be low this AM though patient remains clinically stable - Dosing hasn't been changed since 01/02 but I am hesitant with patient's elevated AST - Consult neurology for recommendations on antiepileptic dosing - Ativan PRN - Seizure precautions 4. Metabolic encephalopathy - Likely combination of medications, phenytoin toxicity on admission, CVA, and possibly anoxic brain injury following respiratory/cardiac arrest on 01/16 5. C. diff - S/P treatment 6. UTI - ESBL + E. coli and Fern - S/P treatment with meropenem and Diflucan 7. Protein calorie malnutrition - Jevity 1.5 at 50 cc/hour per nutrition recommendation with free water 100 cc Q8H - Tolerating goal TFs 8. Atrial fibrillation - Rate-controlled - Continue carvedilol - Eliquis when cleared by neuro 9. CHF - Euvolemic on exam - Continue home Lasix and Coreg 10. HTN - Per neurology, goal less than 120/80 - Continue home Coreg 11. Sacral pressure ulcer - Wound care following - Frequent position changes 12. S/P cardiac arrest with ROSC - Code Blue called on 01/16 - Cardiology evaluated, no further work-up DVT prophylaxis: holding chemical anticoagulation secondary to concern for risk of hemorrhagic conversion of large CVA GI prophylaxis: continue PPI (3) Sacral pressure ulcer Qualifiers: Pressure ulcer stage: stage 4 Qualified Code(s): L89.154 - Pressure ulcer of sacral region, stage 4
[2018-02-07] MEDS: Heparin - SQ 10,000 UNITS/ML Vial SQ SCH ×2 (09:19→21:41)
[2018-02-07] MEDS: Furosemide Liq 40 MG/5 ML UDC NG/OG SCH (09:19)
[2018-02-07] MEDS: Divalproex 125 MG Sprinkles Capsule G-TUBE SCH ×2 (09:20→21:41)
[2018-02-07] MEDS: Multivitamin/Minerals Therapeutic Tablet PO SCH (09:20)
[2018-02-07] MEDS: Polyethylene Glycol 3350 17 GM Packet PO SCH (09:21)
[2018-02-07] MEDS: Insulin NovoLOG Aspart Correctional Sugar Inj SQ SCH ×2 (09:21→22:10)
[2018-02-07] MEDS: Docusate Sodium Liq 100 MG/10 ML UDC G-TUBE SCH ×2 (09:21→21:41)
[2018-02-07] MEDS: Collagenase Oint 30 GM Tube TOPICAL SCH (09:30)
[2018-02-07] MEDS: Potassium Chloride 25 MEQ Effervescent Tablet G-TUBE SCH (10:16)
[2018-02-07] MEDS: Hypromellose 0.3% Opth Gel 10 GM Bottle EACH EYE SCH (21:41)
--- NOTE | 2018-02-08 08:37 | MB ---
cc: Yvon Hull MD DATE: 02/07/2018 REQUESTING PHYSICIAN: Dr. Agus Oneill REASON FOR CONSULTATION: Trach management. HISTORY OF PRESENT ILLNESS: Ms. Baxter is an 87-year-old female with a history of seizure, large right MCA stroke. She is flaccid on the right side. She had a cardiopulmonary arrest. She was on ventilator, had CPR done and she had a trach. Currently, she is on a trach collar, on medical air. She opens her eyes, follows simple commands. Squeezes on the right side. Sometimes she gets agitated. RECENT LABORATORY DATA OF EVALUATION: CBC showed WBC 3.9, hemoglobin 9.0, hematocrit 27.6, MCV 92, platelet count 488. Her sodium 141, potassium 4.8, chloride 101, CO2 35, BUN 32, creatinine 0.31. IMAGING: Her chest x-ray shows trach in place, with mild improvement in her appearance of the chest x-ray. PAST MEDICAL HISTORY: Significant for history of right MCA stroke, respiratory failure, status post tracheostomy and PEG tube placement, decubitus ulcers, seizure disorder and probable anoxic brain injury. MEDICATIONS: She is currently taking albuterol nebulizer treatment, Artificial Tears, Lipitor 20 mg a day, aspirin 324 mg a day, Coreg 6.25 mg twice a day, clonidine p.r.n., Depakote 500 mg twice a day, Lasix 20 mg daily, heparin 5000 q. 12 hours, labetalol p.r.n., lorazepam p.r.n., Provigil 200 mg daily. ALLERGIES: SHE IS ALLERGIC TO ACETAMINOPHEN, PROPOXYPHENE. SOCIAL HISTORY: Not available. FAMILY HISTORY: Not available. Her daughter is an ICU nurse in [place], [place]. She visits her frequently. REVIEW OF SYSTEMS: Could not assess. PHYSICAL EXAMINATION: GENERAL: Elderly female, on trach collar. VITAL SIGNS: Blood pressure 119/70, heart rate 77, respirations 21, temperature 98.7. HEENT: Pupils reactive to light. NECK: Supple. She has trach in place. CHEST: Equal air entry bilaterally. No rhonchi. CARDIOVASCULAR: S1, S2 are normal. ABDOMEN: Soft, nondistended. She has PEG tube in place. EXTREMITIES: She has a decubitus ulcer in the sacral area, has flaccid left side. IMPRESSION: 1. Respiratory failure, status post tracheostomy tube placement. 2. 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 2. Encephalopathy. 3. Seizure disorder. PLAN: The patient will maintain on trach collar. She is getting wound care. Aerosol treatment. Monitor her blood pressure. Heparin for DVT prophylaxis. Further treatment pending the course in the hospital. Thank you, Dr. Agus Oneill, for this consult. MD ANGIE Mcghee/PERICO , 05:39 PM , 05:50 PM GEMMA
[2018-02-08] MEDS: Potassium Chloride 25 MEQ Effervescent Tablet G-TUBE SCH (09:56)
[2018-02-08] MEDS: Docusate Sodium Liq 100 MG/10 ML UDC G-TUBE SCH ×2 (09:57→21:19)
[2018-02-08] MEDS: Divalproex 125 MG Sprinkles Capsule G-TUBE SCH ×2 (09:57→21:17)
[2018-02-08] MEDS: Furosemide Liq 40 MG/5 ML UDC NG/OG SCH (09:57)
[2018-02-08] MEDS: Heparin - SQ 10,000 UNITS/ML Vial SQ SCH ×2 (09:57→21:16)
[2018-02-08] MEDS: Multivitamin/Minerals Therapeutic Tablet PO SCH (09:58)
[2018-02-08] MEDS: Polyethylene Glycol 3350 17 GM Packet PO SCH (09:58)
[2018-02-08] MEDS: Insulin NovoLOG Aspart Correctional Sugar Inj SQ SCH (09:59)
[2018-02-08] MEDS: Collagenase Oint 30 GM Tube TOPICAL SCH (10:00)
--- NOTE | 2018-02-08 10:35 | P.PN ---
Subjective Interval history: Pt seen and examined for f/u of R MCA CVA and respiratory failure. She is resting in bed with tracheostomy in place. Opens her eyes slightly this AM. L hemiparesis. Moving RUE. Networking Technology Instructor my hand. Physical Exam Vital signs: Vital Signs 02/07/18 11:00 02/07/18 12:00 02/07/18 12:21 Temperature 98.3 F Pulse Rate 77 65 62 Respiratory Rate 19 16 Blood Pressure 102/56 L Pulse Oximetry 96 02/07/18 15:00 02/07/18 16:00 02/07/18 19:00 Temperature 98.7 F Pulse Rate 86 77 70 Respiratory Rate 21 Blood Pressure 119/70 Pulse Oximetry 96 02/07/18 20:00 02/07/18 21:16 02/07/18 23:00 Temperature 98.3 F Pulse Rate 74 71 65 Respiratory Rate 25 H 18 Blood Pressure 131/67 Pulse Oximetry 99 02/07/18 23:19 02/08/18 00:00 02/08/18 01:28 Temperature 98.3 F Pulse Rate 67 76 Respiratory Rate 18 18 Blood Pressure 132/60 Pulse Oximetry 97 96 02/08/18 03:00 02/08/18 03:57 02/08/18 04:00 Temperature 98.4 F Pulse Rate 71 70 74 Respiratory Rate 20 21 Blood Pressure 154/71 H Pulse Oximetry 98 02/08/18 07:34 Temperature Pulse Rate 70 Respiratory Rate 15 Blood Pressure Pulse Oximetry 100 Intake & Output 02/07/18 02/08/18 02/08/18 18:59 06:59 18:59 Intake Total 781 / 781 840 / 840 Output Total 700 / 700 550 / 550 Balance 81 / 81 290 / 290 Weight 63.2 kg Intake: Oral 0 / 0 Tube Feeding 581 / 581 420 / 420 Tube Irrigant 120 / 120 Water Bolus Amount 200 / 200 300 / 300 Output: Urine Amount (Catheter) 700 / 700 550 / 550 Indwelling Temp Sensing 700 / 700 550 / 550 Catheter Other: Date of Last Bowel Movement 02/07/18 02/08/18 # Bowel Movements 0 1 # Incontinent Bowel Movements 1 Narrative: GENERAL: WN, WD AA female resting in bed. SKIN: Warm and dry. HEENT: AT/NC. Spontaneously opens eyes. Pupils equal and round. NECK: Trach in place with no surrounding erythema. HEART: RRR no m/r/g. LUNGS: CTAB without wheezes or crackles. ABDOMEN: +BS, soft, NT, ND. EXTREMITIES: No LE edema. Onychomycosis. LUE with pitting edema. NEURO: Spontaneous eye opening. Moving RUE. LUE flaccid. - Urinary Catheter Management Indwelling Temp Sensing Catheter Cath placed during this visit: yes Reason for continuing: Severe pressure ulcer/wound Insertion date: 01/16/18 Insertion time: 04:00 Results - Labs CBC & Chem 7: 02/07/18 02:45 02/07/18 02:45 Laboratory Results - last 24 hr 02/07/18 22:07 POC Glucose 119 H Assessment and Plan - Assessment (1) Acute right MCA stroke Code(s): I63.511 - Cerebral infarction due to unspecified occlusion or stenosis of right middle cerebral artery Status: Acute (2) Seizure Code(s): R56.9 - Unspecified convulsions Status: Chronic (3) Sacral pressure ulcer Code(s): L89.159 - Pressure ulcer of sacral region, unspecified stage Status: Acute (4) Cardiopulmonary arrest with successful resuscitation Code(s): I46.9 - Cardiac arrest, cause unspecified Status: Resolved - Plan 87 year old female with history of seizure disorder brought to [facility] ED via EMS on 12/18 following a witnessed seizure. She was given Versed en-route to hospital and Keppra bolus in ED. Patient's GCS 8 at time of admission encounter. Patient originally admitted for evaluation and management of seizure versus CVA. New CVA in right MCA region found by head CT on 01/03 (likely the original inciting event for admission) with further evolution on 01/08. 1. R MCA CVA - Patient with large ischemic stroke involving R hemisphere despite being on Eliquis - High risk for hemorrhagic conversion therefore anticoagulation has been held - Neurology was following and last recommendation was on 01/14; at the time felt patient was neurologically clear for rehab and recommended f/u CT scan 2 weeks from that time - Last CT head was 01/19 showing stable appearance to the right MCA infarct with no evidence of acute blood products or mass effect - PT following - Rehab/SNF on discharge 2. Chronic respiratory failure - Tracheostomy in place - CXR 02/07 with improved aeration - On T-piece - Consulted pulm for trach management - Supplemental O2 to maintain sats >92% 3. Seizure - Keppra and Dilantin discontinued this admission - Depakote level continues to be low though patient remains clinically stable - Dosing hasn't been changed since 01/02 but I am hesitant with patient's elevated AST - Consulted neurology for recommendations on antiepileptic dosing - Ativan PRN - Seizure precautions 4. Metabolic encephalopathy - Likely combination of medications, phenytoin toxicity on admission, CVA, and possibly anoxic brain injury following respiratory/cardiac arrest on 01/16 5. C. diff - S/P treatment 6. UTI - ESBL + E. coli and Fern - S/P treatment with meropenem and Diflucan 7. Protein calorie malnutrition - Jevity 1.5 at 50 cc/hour per nutrition recommendation with free water 100 cc Q8H - Tolerating goal TFs 8. Atrial fibrillation - Rate-controlled - Continue carvedilol - Eliquis when cleared by neuro 9. CHF - Euvolemic on exam - Continue home Lasix and Coreg 10. HTN - Per neurology, goal less than 120/80 - Continue home Coreg 11. Sacral pressure ulcer - Wound care following - Frequent position changes 12. S/P cardiac arrest with ROSC - Code Blue called on 01/16 - Cardiology evaluated, no further work-up 13. LUE swelling - Doppler U/S to r/o DVT - Elevate arm DVT prophylaxis: holding chemical anticoagulation secondary to concern for risk of hemorrhagic conversion of large CVA GI prophylaxis: continue PPI Once patient is re-evaluated by neurology, will update family (3) Sacral pressure ulcer Qualifiers: Pressure ulcer stage: stage 4 Qualified Code(s): L89.154 - Pressure ulcer of sacral region, stage 4
--- NOTE | 2018-02-08 14:14 | US ---
EXAM DATE: 02/08/2018 1:37 PM EDT AGE/SEX: 87 years / Female INDICATIONS: Left arm swelling. CLINICAL DATA: This is the patient's initial encounter. Patient reports that signs and symptoms have been present for 1 week and indicates a pain score of Nonresponsive. MEDICAL/SURGICAL HISTORY: . Left arm swelling. None. COMPARISON: No prior exams available for comparison. FINDINGS: There is nonocclusive thrombus in the superficial distal cephalic vein. No deep venous thr ombosis in the jugular, subclavian, axillary, brachial and basilic veins. Other: None. CONCLUSION: 1. Nonocclusive superficial thrombus in the distal cephalic vein. No deep venous thrombosis. Electronically signed by: Thierry Espinoza MD 02/08/2018 2:12 PM EDT
--- NOTE | 2018-02-08 16:04 | P.PNPAL ---
Reason for Visit Reason for visit: a. To assist with evaluation and management of symptoms including: dyspnea. b. To assist medical decision maker(s) with: better understanding of current medical conditions; weighing benefits/burdens of medical treatment options; making medical treatment decisions. . Subjective Subjective/Interval History: Patient is an 87 year old female skilled nursing resident who presented to [facility] ED on 12/18/2017 with altered mental status after a witnessed seizure. Patient seen and examined in ICU. No family at bedside. Tracheostomy placed 01/30, now on oxygen via t-piece. Dr. Hull is following, recommends continuation of t-piece. Patient is awake and alert. She is intermittently tracking. She does not answer questions. Not following commands, though squeezing on right when something placed in her hand. She withdraws to pain bilateral LEs. Left arm edema noted, ultrasound with nonocclusive superficial thrombus in distal cephalic vein, no DVT. On heparin for DVT prophylaxis. No new labs. Vital signs stable. Discussed with primary nurse. Per review of Case management notes it appears patient is being considered by [facility] upon DC, they will take her with trach and PEG. Family/Friend Interactions: Left message for Kaci, daughter to see if she has any questions or concerns. Advance Directives Health Care Surrogate: Copy in medical record Durable Power of Boiler Tester: Copy in medical record Advance Directives Date on File: 12/20/17 Health Care Surrogate Name and Number: Kaci Koenig (primary):[phone] Alt HCS : Connie Hector (alternate): Documented care wishes:: Patient has always verbalized aggressive goals to live as long as possible to family. Significant change in goals:: Family goals remain aggressive. They hope for SNF placement. Objective Vital Signs: Vital Signs 02/07/18 16:00 02/07/18 19:00 02/07/18 20:00 Temperature 98.7 F 98.3 F Pulse Rate 77 70 74 Respiratory Rate 21 25 H Blood Pressure 119/70 131/67 Pulse Oximetry 96 99 02/07/18 21:16 02/07/18 23:00 02/07/18 23:19 Temperature Pulse Rate 71 65 67 Respiratory Rate 18 18 Blood Pressure Pulse Oximetry 02/08/18 00:00 02/08/18 01:28 02/08/18 03:00 Temperature 98.3 F Pulse Rate 76 71 Respiratory Rate 18 Blood Pressure 132/60 Pulse Oximetry 97 96 02/08/18 03:57 02/08/18 04:00 02/08/18 07:34 Temperature 98.4 F Pulse Rate 70 74 70 Respiratory Rate 20 21 15 Blood Pressure 154/71 H Pulse Oximetry 98 100 Intake & Output 02/07/18 02/08/18 02/08/18 18:59 06:59 18:59 Intake Total 781 / 781 840 / 840 Output Total 700 / 700 550 / 550 Balance 81 / 81 290 / 290 Weight 63.2 kg Intake: Oral 0 / 0 Tube Feeding 581 / 581 420 / 420 Tube Irrigant 120 / 120 Water Bolus Amount 200 / 200 300 / 300 Output: Urine Amount (Catheter) 700 / 700 550 / 550 Indwelling Temp Sensing 700 / 700 550 / 550 Catheter Other: Date of Last Bowel Movement 02/07/18 02/08/18 # Bowel Movements 0 1 # Incontinent Bowel Movements 1 Physical Exam: CONSTITUTIONAL/GENERAL: This is a frail, elderly female in no acute distress. TUBES/LINES/DRAINS: trach, PIV, PEG tube, podus boots SKIN: Skin is thin and fragile. Skin warm and dry. Left upper extremity with significant edema. EYES: pupils equal. CARDIOVASCULAR: RRR RESPIRATORY/CHEST: Symmetric, unlabored respirations on oxygen via t-piece. Lungs clear. GASTROINTESTINAL: Abdomen soft, nondistended.no palpable masses. No apparent tenderness. Bowel sounds normoactive. GENITOURINARY: Without palpable bladder distension. MUSCULOSKELETAL: Extremities with edema, > LUE. NEUROLOGICAL: Eyes open, intermittent tracking, Withdraws to painful stimuli slightly bilateral lower extremities. Rt upper moves spontaneously. Does not follow commands. Moves mouth, does not appear to answer questions. PSYCHIATRIC: no apparent anxiety. . Diagnostic Tests Laboratory: Laboratory Results - last 72 hr 02/05/18 02/05/18 02/06/18 17:26 23:51 04:30 WBC 3.8 L RBC 2.61 L Hgb 8.1 L Hct 24.4 L MCV 93.3 MCH 31.1 MCHC 33.3 RDW 14.9 Plt Count 416 MPV 8.0 Prelim Diff (Auto) Neut % (Auto) 30.1 Lymph % (Auto) 46.9 H Motley % (Auto) 14.8 H Eos % (Auto) 6.9 H Baso % (Auto) 1.3 Neut # (Auto) 1.2 L Lymph # (Auto) 1.8 Motley # (Auto) 0.6 Eos # (Auto) 0.3 Baso # (Auto) 0.1 WBC Differential . Seg Neuts % (Manual) Band Neuts % (Manual) Lymphocytes % (Manual) Monocytes % (Manual) Eosinophils % (Manual) Abs Neuts (Manual) Differential Comment Auto diff final Platelet Estimate Platelet Morphology Ovalocytes Sodium Potassium Chloride Carbon Dioxide Anion Gap BUN Creatinine Estimated GFR POC Glucose 130 H 127 H Random Glucose Calcium Phosphorus Magnesium Total Bilirubin AST ALT Alkaline Phosphatase Total Protein Albumin Valproic Acid 02/06/18 02/06/18 02/06/18 04:30 05:27 09:07 WBC RBC Hgb Hct MCV MCH MCHC RDW Plt Count MPV Prelim Diff (Auto) Neut % (Auto) Lymph % (Auto) Motley % (Auto) Eos % (Auto) Baso % (Auto) Neut # (Auto) Lymph # (Auto) Motley # (Auto) Eos # (Auto) Baso # (Auto) WBC Differential Seg Neuts % (Manual) Band Neuts % (Manual) Lymphocytes % (Manual) Monocytes % (Manual) Eosinophils % (Manual) Abs Neuts (Manual) Differential Comment Platelet Estimate Platelet Morphology Ovalocytes Sodium 140 Potassium 4.6 Chloride 101 Carbon Dioxide 32.9 H Anion Gap 6 BUN 28 H Creatinine 0.24 L Estimated GFR Greater than 89 POC Glucose 130 H 123 H Random Glucose 97 Calcium 8.5 Phosphorus 2.1 L Magnesium 1.9 Total Bilirubin AST ALT Alkaline Phosphatase Total Protein Albumin Valproic Acid 02/06/18 02/07/18 02/07/18 21:03 02:45 02:45 WBC 3.9 L RBC 2.96 L Hgb 9.0 L Hct 27.4 L MCV 92.6 MCH 30.5 MCHC 32.9 RDW 15.2 Plt Count 488 H MPV 8.2 Prelim Diff (Auto) Manual diff required Neut % (Auto) Lymph % (Auto) Motley % (Auto) Eos % (Auto) Baso % (Auto) Neut # (Auto) Lymph # (Auto) Motley # (Auto) Eos # (Auto) Baso # (Auto) WBC Differential Manual diff final Seg Neuts % (Manual) 37 Band Neuts % (Manual) 1 Lymphocytes % (Manual) 43 Monocytes % (Manual) 15 H Eosinophils % (Manual) 4 Abs Neuts (Manual) 1.5 L Differential Comment . Platelet Estimate High H Platelet Morphology Normal Ovalocytes 1+ H Sodium 141 Potassium 4.8 Chloride 101 Carbon Dioxide 35.9 H Anion Gap 4 L BUN 32 H Creatinine 0.31 L Estimated GFR Greater than 89 POC Glucose 128 H Random Glucose 92 Calcium 7.8 L Phosphorus 3.8 D Magnesium 2.0 Total Bilirubin 0.2 AST 62 H ALT 38 Alkaline Phosphatase 156 H Total Protein 5.9 L Albumin 1.7 L Valproic Acid 34 L 02/07/18 02/07/18 08:33 22:07 WBC RBC Hgb Hct MCV MCH MCHC RDW Plt Count MPV Prelim Diff (Auto) Neut % (Auto) Lymph % (Auto) Motley % (Auto) Eos % (Auto) Baso % (Auto) Neut # (Auto) Lymph # (Auto) Motley # (Auto) Eos # (Auto) Baso # (Auto) WBC Differential Seg Neuts % (Manual) Band Neuts % (Manual) Lymphocytes % (Manual) Monocytes % (Manual) Eosinophils % (Manual) Abs Neuts (Manual) Differential Comment Platelet Estimate Platelet Morphology Ovalocytes Sodium Potassium Chloride Carbon Dioxide Anion Gap BUN Creatinine Estimated GFR POC Glucose 116 H 119 H Random Glucose Calcium Phosphorus Magnesium Total Bilirubin AST ALT Alkaline Phosphatase Total Protein Albumin Valproic Acid Result Diagrams: 02/07/18 02:45 02/07/18 02:45 Imaging: Head CT 01/19/18 00:00 CONCLUSION: 1. Stable appearance to the right MCA infarction; no evidence of acute blood products or mass effect. Chest X-Ray 02/07/18 06:00 CONCLUSION: Slight improved aeration on the right. Venous Doppler Study 02/08/18 00:00 CONCLUSION: 1. Nonocclusive superficial thrombus in the distal cephalic vein. No deep venous thrombosis. Procedures: * Tracheostomy * PEG tube Assessment and Plan Pertinent Non-Medical Issues: Psychosocial: Patient is . She has a high school education but is now retired. Patient has 6 children. Patient currently [facility] at [facility] in [place]. Spiritual: [employer] Legal: A healthcare surrogate designation form was completed on 05/06/2017 and designates Kaci Koenig as the primary healthcare surrogate decision-maker. Connie Hector is designated as the alternate healthcare surrogate decision maker. Ethical issues impacting care: No known ethical issues impacting care at this time. Important Contacts: * Kaci Koenig - Health Care Surrogate: [phone] (C) * Connie Jung - Power of Boiler Tester/alternate [facility]: [phone] (C) * Alexia Kahn - Son: [phone] (C) or [phone] (H) Prognosis: Patient is a frail 87-year-old female with a complex medical history who was admitted following a witnessed seizure status post trach and PEG tube placement. Given patient's advanced age, multiple comorbid conditions in addition to her acute decline, she will remain high risk for ongoing setbacks and complications. Code Status: Full Code Plan: * Decision-making: Patient does not have insight or judgment related to her current medical conditions; it is unlikely that she will regain capacity. A healthcare surrogate designation form was completed on 05/06/2017 and designates Kaci Koenig as the primary healthcare surrogate decision-maker. Connie Hector is designated as the alternate healthcare surrogate decision maker. * FULL CODE * Goals remain aggressive in hopes for continued neuro recovery. Will need LTAC vs mcc placement, being evaluated by [facility]. Family does not want [facility]. * Symptom management: = Encephalopathy: Multifactorial. Contributing factors may metabolic encephalopathy, seizures, CVA, dementia. Patient admitted for evaluation and management of seizures vs. CVA. Patient has a history of previous CVA 2 with residual left-sided weakness. Improving. = Dysphasia: Patient has failed multiple swallow studies. (hx CVAs, dementia ) Status post PEG tube placement on 12/30/2017. Tolerating tube feeding. = Dyspnea: s/p tracheostomy. on oxygen via t-piece. * Palliative care will continue to follow during hospital course as condition evolves, to assist patient/decision-maker with understanding of medical conditions, weighing benefits/burdens of treatment options, for clarification of goals of treatment. Additionally will assist with any symptoms of palliative concern Attestation Attestation: To help prompt me to consider important information that might be impacting today's encounter and assessment, information from prior notes written by myself or my colleagues may have been "brought forward" into today's note. My signature on this note, however, is an attestation that I personally performed the exam, history, and/or decision-making noted today, and, unless otherwise indicated, the interactions with patient, family, and staff as well as the review of records all occurred today. I also attest that the listed assessment and stated plan reflect my best clinical judgment today based on the combination of historical information, prior notes, and today's exam/ interactions. When time spent is documented, it refers only to time spent today by the signer, or if indicated, combined time spent today by collaborating physician/nurse practitioner.
[2018-02-08] MEDS ORDERED: Hyoscyamine Liq Drops 0.125 MG/ML 15 ML Bottle SL PRN (16:52)
--- NOTE | 2018-02-08 19:19 | P.PNPL ---
Subjective Interval history: 87 YOWF with MCA stroke, RF, trach On Trach collar opens eyes Tolerates TF Small amount of trach secretions. Physical Exam Vital signs: Vital Signs 02/07/18 20:00 02/07/18 21:16 02/07/18 23:00 Temperature 98.3 F Pulse Rate 74 71 65 Respiratory Rate 25 H 18 Blood Pressure 131/67 Pulse Oximetry 99 02/07/18 23:19 02/08/18 00:00 02/08/18 01:28 Temperature 98.3 F Pulse Rate 67 76 Respiratory Rate 18 18 Blood Pressure 132/60 Pulse Oximetry 97 96 02/08/18 03:00 02/08/18 03:57 02/08/18 04:00 Temperature 98.4 F Pulse Rate 71 70 74 Respiratory Rate 20 21 Blood Pressure 154/71 H Pulse Oximetry 98 02/08/18 07:34 02/08/18 08:00 02/08/18 10:00 Temperature 99.0 F Pulse Rate 70 76 74 Respiratory Rate 15 31 H Blood Pressure 126/68 Pulse Oximetry 100 96 02/08/18 12:00 02/08/18 14:00 02/08/18 16:00 Temperature 99.3 F 98.9 F Pulse Rate 74 68 72 Respiratory Rate 21 31 H Blood Pressure 113/59 L 132/62 Pulse Oximetry 95 93 L 02/08/18 18:00 Temperature Pulse Rate 70 Respiratory Rate Blood Pressure Pulse Oximetry Intake & Output 02/08/18 02/08/18 02/09/18 06:59 18:59 06:59 Intake Total 840 / 840 756 / 756 Output Total 550 / 550 600 / 600 Balance 290 / 290 156 / 156 Weight 63.2 kg Intake: Oral 0 / 0 Tube Feeding 420 / 420 606 / 606 Tube Irrigant 120 / 120 150 / 150 Water Bolus Amount 300 / 300 Output: Urine Amount (Catheter) 550 / 550 600 / 600 Indwelling Temp Sensing 550 / 550 600 / 600 Catheter Other: Date of Last Bowel Movement 02/08/18 02/08/18 # Bowel Movements 1 0 # Incontinent Bowel Movements 1 GENERAL: Frail elderly WF, on Trach collar SKIN: Warm and dry. HEAD: Normocephalic. EYES: No scleral icterus. No injection or drainage. NECK: Supple, trachea midline. No JVD or lymphadenopathy. has Trach CARDIOVASCULAR: Regular rate and rhythm without murmurs, gallops, or rubs. RESPIRATORY: Breath sounds equal bilaterally. No accessory muscle use. GASTROINTESTINAL: Abdomen soft, non-tender, nondistended. MUSCULOSKELETAL: No cyanosis, or edema. BACK: Nontender without obvious deformity. No CVA tenderness. - Urinary Catheter Management Indwelling Temp Sensing Catheter Cath placed during this visit: yes Reason for continuing: Severe pressure ulcer/wound Insertion date: 01/16/18 Insertion time: 04:00 Assessment and Plan - Plan IMPRESSION: 1. Respiratory failure, status post tracheostomy tube placement. 2. 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 2. Encephalopathy. 3. Seizure disorder. PLAN: Trach collar Suction as needed Supplement 02 Tube feeding
[2018-02-08] MEDS: Hypromellose 0.3% Opth Gel 10 GM Bottle EACH EYE SCH (21:19)
[2018-02-08] MEDS: Labetalol HCl Inj 100 MG/20 ML Vial IV.PUSH PRN (23:25)
[2018-02-09] MEDS: Insulin NovoLOG Aspart Correctional Sugar Inj SQ SCH ×3 (00:35→21:56)
[2018-02-09] MEDS: Labetalol HCl Inj 100 MG/20 ML Vial IV.PUSH PRN (05:07)
[2018-02-09 05:11] LABS: Hematocrit 28.5 % (35.0-46.0); Hemoglobin 9.4 gm/dL (11.6-15.3); Mean Corpuscular HGB Conc 33.2 % (32.0-36.0); Mean Corpuscular Hemoglobin 31.2 pg (27.0-34.0); Mean Platelet Volume 8.2 fL (7.0-11.0); Platelet Count 453 th/mm3 (150-450); Red Blood Count 3.03 mil/mm3 (4.00-5.30); Red Cell Distribution Width 15.5 % (11.6-17.2)
[2018-02-09 05:35] LABS: Albumin 1.9 g/dL (3.4-5.0); Anion Gap 5 meq/L (5-15); Aspartate Aminotransferase 57 U/L (15-37); Blood Urea Nitrogen 31 mg/dL (7-18); Calcium 8.5 mg/dL (8.5-10.1); Carbon Dioxide 32.9 meq/L (21.0-32.0); Chloride 105 meq/L (98-107); Glomerular Filtration Rate Greater Than 89 mL/min (>89); Glucose,Random 110 mg/dL (74-106); Potassium 4.9 meq/L (3.5-5.1); Sodium 143 meq/L (136-145)
[2018-02-09 05:36] LABS: Alanine Aminotransferase 34 U/L (10-53)
[2018-02-09 05:39] LABS: Alkaline Phosphatase 164 U/L (45-117); Total Protein 6.5 g/dL (6.4-8.2)
[2018-02-09] MEDS: Divalproex 125 MG Sprinkles Capsule G-TUBE SCH (09:59)
[2018-02-09] MEDS: Heparin - SQ 10,000 UNITS/ML Vial SQ SCH ×2 (09:59→21:00)
[2018-02-09] MEDS: Docusate Sodium Liq 100 MG/10 ML UDC G-TUBE SCH ×2 (10:00→21:00)
[2018-02-09] MEDS: Furosemide Liq 40 MG/5 ML UDC NG/OG SCH (10:00)
[2018-02-09] MEDS: Multivitamin/Minerals Therapeutic Tablet PO SCH (10:00)
[2018-02-09] MEDS: Potassium Chloride 25 MEQ Effervescent Tablet G-TUBE SCH (10:00)
[2018-02-09] MEDS: Polyethylene Glycol 3350 17 GM Packet PO SCH (10:01)
[2018-02-09] MEDS: Collagenase Oint 30 GM Tube TOPICAL SCH (10:02)
--- NOTE | 2018-02-09 15:40 | P.PNIM ---
Subjective Interval history: No changes overnight per nursing staff. Physical Exam Vital signs: Vital Signs 02/08/18 16:00 02/08/18 18:00 02/08/18 19:00 Temperature 98.9 F Pulse Rate 72 70 70 Respiratory Rate 31 H Blood Pressure 132/62 Pulse Oximetry 93 L 02/08/18 20:00 02/08/18 20:35 02/08/18 23:00 Temperature 97.8 F Pulse Rate 82 70 Respiratory Rate 59 H Blood Pressure 142/94 H Pulse Oximetry 96 94 L 02/09/18 00:00 02/09/18 03:00 02/09/18 04:00 Temperature 98.1 F 99.7 F H Pulse Rate 60 66 74 Respiratory Rate 22 32 H Blood Pressure 155/71 H 177/124 H Pulse Oximetry 96 96 02/09/18 08:15 02/09/18 11:39 Temperature Pulse Rate Respiratory Rate Blood Pressure Pulse Oximetry 95 100 Intake & Output 02/08/18 02/09/18 02/09/18 18:59 06:59 18:59 Intake Total 756 / 756 711 / 711 Output Total 600 / 600 625 / 625 Balance 156 / 156 86 / 86 Intake: Tube Feeding 606 / 606 511 / 511 Tube Irrigant 150 / 150 200 / 200 Output: Urine Amount (Catheter) 600 / 600 625 / 625 Indwelling Temp Sensing 600 / 600 625 / 625 Catheter Other: Date of Last Bowel Movement 02/08/18 02/09/18 # Bowel Movements 0 2 Narrative: GENERAL: WN, WD AA female resting in bed. NECK: Trach in place with no surrounding erythema. HEART: RRR no m/r/g. LUNGS: Few rhonchi bilaterally ABDOMEN: +BS, soft, NT, ND. EXTREMITIES: No LE edema. 1+ LUE with pitting edema. NEURO: Spontaneous eye opening. Moving RUE. LUE flaccid. - Urinary Catheter Management Indwelling Temp Sensing Catheter Cath placed during this visit: yes Reason for continuing: Severe pressure ulcer/wound Insertion date: 01/16/18 Insertion time: 04:00 Results - Labs CBC & Chem 7: 02/09/18 04:17 02/09/18 04:17 Laboratory Results - last 24 hr 02/08/18 02/09/18 02/09/18 21:26 04:17 04:17 WBC 5.0 RBC 3.03 L Hgb 9.4 L Hct 28.5 L MCV 94.0 MCH 31.2 MCHC 33.2 RDW 15.5 Plt Count 453 H MPV 8.2 Sodium 143 Potassium 4.9 Chloride 105 Carbon Dioxide 32.9 H Anion Gap 5 BUN 31 H Creatinine 0.41 L Estimated GFR Greater than 89 POC Glucose 130 H Random Glucose 110 H Calcium 8.5 Total Bilirubin 0.2 AST 57 H ALT 34 Alkaline Phosphatase 164 H Total Protein 6.5 D Albumin 1.9 L 02/09/18 08:46 WBC RBC Hgb Hct MCV MCH MCHC RDW Plt Count MPV Sodium Potassium Chloride Carbon Dioxide Anion Gap BUN Creatinine Estimated GFR POC Glucose 134 H Random Glucose Calcium Total Bilirubin AST ALT Alkaline Phosphatase Total Protein Albumin Assessment and Plan - Assessment (1) Acute right MCA stroke Code(s): I63.511 - Cerebral infarction due to unspecified occlusion or stenosis of right middle cerebral artery Status: Acute (2) Seizure Code(s): R56.9 - Unspecified convulsions Status: Chronic (3) Sacral pressure ulcer Code(s): L89.159 - Pressure ulcer of sacral region, unspecified stage Status: Acute (4) Cardiopulmonary arrest with successful resuscitation Code(s): I46.9 - Cardiac arrest, cause unspecified Status: Resolved - Plan 87 year old female with history of seizure disorder brought to [place] ED via EMS on 12/18 following a witnessed seizure. She was given Versed en-route to hospital and Keppra bolus in ED. Patient's GCS 8 at time of admission encounter. Patient originally admitted for evaluation and management of seizure versus CVA. New CVA in right MCA region found by head CT on 01/03 (likely the original inciting event for admission) with further evolution on 01/08. 1. R ischemic MCA CVA - Patient with large ischemic stroke involving R hemisphere despite being on Eliquis - High risk for hemorrhagic conversion therefore anticoagulation has been held - Neurology was following and last recommendation was on 01/14; at the time felt patient was neurologically clear for rehab and recommended f/u CT scan 2 weeks from that time - Last CT head was 01/19 showing stable appearance to the right MCA infarct with no evidence of acute blood products or mass effect - PT following - Rehab/SNF on discharge 2. Chronic respiratory failure - Tracheostomy in place - CXR 02/07 with improved aeration - On T-piece for oxygen support - Consulted pulm for trach management - Supplemental O2 to maintain sats >92% 3. Seizure - Keppra and Dilantin discontinued this admission - Depakote level continues to be low though patient remains clinically stable - Dosing hasn't been changed since 01/02 but I am hesitant with patient's elevated AST - Consulted neurology for recommendations on antiepileptic dosing - Ativan PRN - Seizure precautions 4. Metabolic encephalopathy, persists - Likely combination of medications, phenytoin toxicity on admission, CVA, and possibly anoxic brain injury following respiratory/cardiac arrest on 01/16 5. C. diff - S/P treatment 6. UTI - ESBL + E. coli and Fern - S/P treatment with meropenem and Diflucan 7. Protein calorie malnutrition - Jevity 1.5 at 50 cc/hour per nutrition recommendation with free water 100 cc Q8H - Tolerating goal TFs 8. Atrial fibrillation - Rate-controlled - Continue carvedilol - Eliquis when cleared by neuro 9. CHF - Euvolemic on exam - Continue home Lasix and Coreg 10. HTN - Per neurology, goal less than 120/80 - Continue home Coreg 11. Sacral pressure ulcer - Wound care following - Frequent position changes 12. S/P cardiac arrest with ROSC - Code Blue called on 01/16 - Cardiology evaluated, no further work-up 13. LUE swelling - Doppler U/S showed nonocclusive superficial thrombus in distal cephalic vein conservative treatment at this time elevate no anticoagulation secondary to high risk of hemorrhage - Elevate arm DVT prophylaxis: holding chemical anticoagulation secondary to concern for risk of hemorrhagic conversion of large CVA GI prophylaxis: continue PPI (3) Sacral pressure ulcer Qualifiers: Pressure ulcer stage: stage 4 Qualified Code(s): L89.154 - Pressure ulcer of sacral region, stage 4
--- NOTE | 2018-02-09 18:13 | P.PNPL ---
Subjective Interval history: 87 YO AA with MCA stroke, RF, trach On Trach collar opens eyes Tolerates TF On Fi02 28% Small amount of trach secretions. Son at BS Physical Exam Vital signs: Vital Signs 02/08/18 19:00 02/08/18 20:00 02/08/18 20:35 Temperature 97.8 F Pulse Rate 70 82 Respiratory Rate 59 H Blood Pressure 142/94 H Pulse Oximetry 96 94 L 02/08/18 23:00 02/09/18 00:00 02/09/18 03:00 Temperature 98.1 F Pulse Rate 70 60 66 Respiratory Rate 22 Blood Pressure 155/71 H Pulse Oximetry 96 02/09/18 04:00 02/09/18 08:00 02/09/18 08:15 Temperature 99.7 F H 98.9 F Pulse Rate 74 58 L Respiratory Rate 32 H 20 Blood Pressure 177/124 H 140/64 Pulse Oximetry 96 96 95 02/09/18 11:39 02/09/18 12:00 02/09/18 16:00 Temperature 98.6 F 98.8 F Pulse Rate 62 66 Respiratory Rate 23 21 Blood Pressure 112/62 130/70 Pulse Oximetry 100 100 100 Intake & Output 02/08/18 02/09/18 02/09/18 18:59 06:59 18:59 Intake Total 756 / 756 711 / 711 Output Total 600 / 600 625 / 625 Balance 156 / 156 86 / 86 Intake: Tube Feeding 606 / 606 511 / 511 Tube Irrigant 150 / 150 200 / 200 Output: Urine Amount (Catheter) 600 / 600 625 / 625 Indwelling Temp Sensing 600 / 600 625 / 625 Catheter Other: Date of Last Bowel Movement 02/08/18 02/09/18 # Bowel Movements 0 2 GENERAL: Elderly AA female, no distress SKIN: Warm and dry. HEAD: Normocephalic. EYES: No scleral icterus. No injection or drainage. NECK: Supple, trachea midline. No JVD or lymphadenopathy. Has Trach CARDIOVASCULAR: Regular rate and rhythm without murmurs, gallops, or rubs. RESPIRATORY: Breath sounds equal bilaterally. No accessory muscle use. GASTROINTESTINAL: Abdomen soft, non-tender, nondistended. Has PEG MUSCULOSKELETAL: No cyanosis, or edema. BACK: Nontender without obvious deformity. No CVA tenderness. - Urinary Catheter Management Indwelling Temp Sensing Catheter Cath placed during this visit: yes Reason for continuing: Severe pressure ulcer/wound Insertion date: 01/16/18 Insertion time: 04:00 Assessment and Plan - Plan IMPRESSION: 1. Respiratory failure, status post tracheostomy tube placement. 2. 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 2. Encephalopathy. 3. Seizure disorder. PLAN: Trach collar Suction as needed Supplement 02 Tube feeding DW son at
[2018-02-09] MEDS ORDERED: Divalproex 125 MG Sprinkles Capsule G-TUBE SCH (18:30)
[2018-02-09] MEDS: Hypromellose 0.3% Opth Gel 10 GM Bottle EACH EYE SCH (21:01)
--- NOTE | 2018-02-09 21:47 | CT ---
EXAM DATE: 02/09/2018 9:36 PM EDT AGE/SEX: 87 years / Female INDICATIONS: Seizure. CLINICAL DATA: This is the patient's initial encounter. Patient reports that signs and symptoms have been present for 1 day and indicates a pain score of Nonresponsive. MEDICAL/SURGICAL HISTORY: Stroke. Cardiovascular disease. Diabetes. C-Diff Pacemaker. Peg tube RADIATION DOSE: 36.49 CTDI (mGy) [place] [facility] [place]19/[place]. . TECHNIQUE: CT of the head without contrast. Using automated exposure control and adjustment of the mA and/or kV according to patient size, radiation dose was kept as low as reasonably achievable to ob tain optimal diagnostic quality images. DICOM format image data is available electronically for revi ew and comparison. FINDINGS: Cerebrum: The ventricles are normal for age. No evidence of midline shift, mass lesion, hemorrhage or acute infarction. No extraaxial fluid collections are seen. Chronic infarct changes are again see n of the periventricular white matter and the right middle cerebral artery distribution. Posterior Fossa: Old infarct of the left cerebellar hemisphere again noted. The cerebellum and brain stem are otherwise intact. The 4th ventricle is midline. The cerebellopontine angle is unremarkable . Extracranial: The visualized portion of the orbits is intact. Skull: The calvaria is intact. No evidence of skull fracture. CONCLUSION: 1. No acute intracranial abnormality demonstrated. 2. Multifocal chronic infarcts again noted as above. . Electronically signed by: Nino Chin MD 02/09/2018 9:45 PM EDT
[2018-02-10] MEDS: Potassium Chloride 20 MEQ Pwd Pkt G-TUBE SCH (07:37)
[2018-02-10] MEDS: Potassium Chloride 25 MEQ Effervescent Tablet G-TUBE SCH (08:03)
[2018-02-10] MEDS: Furosemide Liq 40 MG/5 ML UDC NG/OG SCH (08:03)
[2018-02-10] MEDS: Heparin - SQ 10,000 UNITS/ML Vial SQ SCH ×2 (08:04→21:09)
[2018-02-10] MEDS: Multivitamin/Minerals Therapeutic Tablet PO SCH (08:04)
[2018-02-10] MEDS: Polyethylene Glycol 3350 17 GM Packet PO SCH (08:04)
[2018-02-10] MEDS: Collagenase Oint 30 GM Tube TOPICAL SCH (08:05)
[2018-02-10] MEDS: Docusate Sodium Liq 100 MG/10 ML UDC G-TUBE SCH ×2 (08:05→21:08)
[2018-02-10] MEDS: Insulin NovoLOG Aspart Correctional Sugar Inj SQ SCH ×2 (08:29→21:10)
--- NOTE | 2018-02-10 11:18 | P.PNIM ---
Subjective Interval history: Patient remains nonverbal No new issues per nursing Await safe placement Increase vancomycin to 250 MG via PEG 4 times daily Physical Exam Vital signs: Vital Signs 02/09/18 11:39 02/09/18 12:00 02/09/18 16:00 Temperature 98.6 F 98.8 F Pulse Rate 62 66 Respiratory Rate 23 21 Blood Pressure 112/62 130/70 Pulse Oximetry 100 100 100 02/09/18 19:39 02/09/18 20:00 02/09/18 23:00 Temperature 98.2 F Pulse Rate 68 68 Respiratory Rate 23 Blood Pressure 132/87 Pulse Oximetry 100 100 02/10/18 00:00 02/10/18 03:00 02/10/18 04:00 Temperature 98.0 F 98.2 F Pulse Rate 74 68 74 Respiratory Rate 21 19 Blood Pressure 114/70 133/60 Pulse Oximetry 97 97 02/10/18 07:00 02/10/18 08:00 Temperature 98.8 F Pulse Rate 73 77 Respiratory Rate Blood Pressure 151/71 H Pulse Oximetry 99 Intake & Output 02/09/18 02/10/18 02/10/18 18:59 06:59 18:59 Intake Total 864 / 864 Output Total 1150 / 1150 650 / 650 Balance -286 / -286 -650 / -650 Intake: Tube Feeding 764 / 764 Tube Irrigant 100 / 100 Output: Urine 550 / 550 Stool 400 / 400 100 / 100 Urine Amount (Catheter) 750 / 750 Indwelling Temp Sensing 750 / 750 Catheter Other: Date of Last Bowel Movement 02/09/18 02/10/18 02/10/18 Narrative: GENERAL: WN, WD AA female resting in bed. NECK: Trach in place with no surrounding erythema. HEART: RRR no m/r/g. LUNGS: Few rhonchi bilaterally ABDOMEN: +BS, soft, NT, ND. PEG tube in place EXTREMITIES: No LE edema. 1+ LUE with pitting edema. NEURO: Spontaneous eye opening. Moving RUE. LUE flaccid. Has decubitus - Urinary Catheter Management Indwelling Temp Sensing Catheter Cath placed during this visit: yes Urethral indwelling: Yes Reason for continuing: Severe pressure ulcer/wound Insertion date: 01/16/18 Insertion time: 04:00 Results - Labs CBC & Chem 7: 02/09/18 04:17 02/09/18 04:17 Laboratory Results - last 24 hr 02/09/18 02/09/18 02/10/18 21:11 22:21 08:15 POC Glucose 130 H 113 H Stl C.difficile Tox PCR Positive H St C. diff Tox Epid 027 Positive H - Imaging Impressions Head CT 02/09/18 00:00 CONCLUSION: 1. No acute intracranial abnormality demonstrated. 2. Multifocal chronic infarcts again noted as above. . Assessment and Plan - Assessment (1) Acute right MCA stroke Code(s): I63.511 - Cerebral infarction due to unspecified occlusion or stenosis of right middle cerebral artery Status: Acute (2) Seizure Code(s): R56.9 - Unspecified convulsions Status: Chronic (3) Sacral pressure ulcer Code(s): L89.159 - Pressure ulcer of sacral region, unspecified stage Status: Acute (4) Cardiopulmonary arrest with successful resuscitation Code(s): I46.9 - Cardiac arrest, cause unspecified Status: Resolved - Plan 87 year old female with history of seizure disorder brought to [place] ED via EMS on 12/18 following a witnessed seizure. She was given Versed en-route to hospital and Keppra bolus in ED. Patient's GCS 8 at time of admission encounter. Patient originally admitted for evaluation and management of seizure versus CVA. New CVA in right MCA region found by head CT on 01/03 (likely the original inciting event for admission) with further evolution on 01/08. 1. R ischemic MCA CVA - Patient with large ischemic stroke involving R hemisphere despite being on Eliquis - High risk for hemorrhagic conversion therefore anticoagulation has been held - Neurology was following and last recommendation was on 01/14; at the time felt patient was neurologically clear for rehab and recommended f/u CT scan 2 weeks from that time - Last CT head was 01/19 showing stable appearance to the right MCA infarct with no evidence of acute blood products or mass effect - PT following - Rehab/SNF on discharge -Status post trach and PEG 2. Chronic respiratory failure - Tracheostomy in place - CXR 02/07 with improved aeration - On T-piece for oxygen support - Consulted pulm for trach management - Supplemental O2 to maintain sats >92% 3. Seizure - Keppra and Dilantin discontinued this admission - Depakote level continues to be low though patient remains clinically stable - Dosing hasn't been changed since 01/02 but I am hesitant with patient's elevated AST - Consulted neurology for recommendations on antiepileptic dosing - Ativan PRN - Seizure precautions 4. Metabolic encephalopathy, persists - Likely combination of medications, phenytoin toxicity on admission, CVA, and possibly anoxic brain injury following respiratory/cardiac arrest on 01/16 5. C. diff - S/P treatment We will continue on vancomycin 250 mg via PEG 4 times daily 6. UTI - ESBL + E. coli and Fern - S/P treatment with meropenem and Diflucan 7. Protein calorie malnutrition - Jevity 1.5 at 50 cc/hour per nutrition recommendation with free water 100 cc Q8H - Tolerating goal TFs 8. Atrial fibrillation - Rate-controlled - Continue carvedilol - Eliquis when cleared by neuro 9. CHF - Euvolemic on exam - Continue home Lasix and Coreg 10. HTN - Per neurology, goal less than 120/80 - Continue home Coreg 11. Sacral pressure ulcer - Wound care following - Frequent position changes 12. S/P cardiac arrest with resuscitation - Gab Bravo called on 01/16 - Cardiology evaluated, no further work-up 13. LUE swelling - Doppler U/S showed nonocclusive superficial thrombus in distal cephalic vein conservative treatment at this time elevate no anticoagulation secondary to high risk of hemorrhage - Elevate arm DVT prophylaxis: holding chemical anticoagulation secondary to concern for risk of hemorrhagic conversion of large CVA GI prophylaxis: continue PPI Code Status: Full code Discussed Condition With: group practice pediatrician Planning: Safe placement (3) Sacral pressure ulcer Qualifiers: Pressure ulcer stage: stage 4 Qualified Code(s): L89.154 - Pressure ulcer of sacral region, stage 4
--- NOTE | 2018-02-10 16:36 | P.DIET ---
Nutritional Evaluation Type of nutrition evaluation: follow-up Nutrition consult regarding: Tube Feeding Nutrition [place] [facility] [place] "[place] with severe diarrhea") Subjective Subjective Comments: Pt resides in a SNF Objective - Diagnosis Seizures, AMS. PMH see H&P - Objective % IBW: 119 (IBW = 135#) Body Weight Used for Calculations: IBW Energy Needs - Lower Range (kCal/kg): 25 Energy Needs - Upper Range (kCal/kg): 30 Lower Limit kCal/kg (kCals): 1,535 Upper Limit kCal/kg (kCals): 1,842 Lower Limit Protein Factor (Grams per Kg): 1.2 Upper Limit Protein Factor (Grams per Kg): 1.5 Lower Protein Needs (Protein): 74 Upper Protein Needs (Protein): 92 Dietitian Reviewed in Medical Record: Curent medications, Intake & Output, Labs , Medical history, Tube feeding, Wound/DTI Diet Order: TF'ing Wound Care Note: see WOCN dated 02/03: of note, stage 4 pressure injury to sacrum Objective Comments: s/p trach and PEG tube placement positive c-diff Feeding - Current Tube Feeding Tube Feeding Product: Jevity 1.5 Tube Feeding Rate: 50 Current kCals Provided by Tube Feedin,800 Current Protein Provided by Tube Feeding (gPRO): 77 Current Free H2O Provided (m/l): 912 Assessment Assessment: Pt is s/p cardiac and respiratory arrest (01/16). She has been tolerating Jevity 1.5 @ 50 mls/hr and this adequately meets estimated needs. Pt has increased nutritional needs for wound healing. Rec the addition of Jarod, a targeted nutrition therapy aimed at healing wounds w/1-packet BID. Significant wt changes noted: 55 kg on (01/12), 67.3 kg on (01/13), 69.2 kg (01/17) and 76.5 kg on (01/17) and current wt 63.2 kg. Will monitor for trends. Recommendations: 1. Continue Jevity 1.5 @ goal rate 50 mls/hr 2. Rec Jarod 1-packet BID to aid in healing Dietitian to Monitor: Lab values, Glucose level, Tube feeding tolerance, Weight change, Wound/skin status, Medical course
--- NOTE | 2018-02-10 16:39 | P.PNNEU ---
Subjective Subjective Comments: No acute events reported Active Medications: Active Medications Albuterol (Albuterol Neb (Prn)) 2.5 mg NEB Q2HR NEB PRN PRN Reason: DYSPNEA Last Admin: 02/08/18 07:34 Dose: 2.5 mg Artificial Tears (Genteal Severe Dry Eye Relief 0.3% Opth Gel) 1 drops EACH EYE HS [facility] Last Admin: 02/09/18 21:01 Dose: 1 drops Aspirin (Aspirin Chew) 324 mg G-TUBE DAILY [facility] Last Admin: 02/10/18 08:04 Dose: 324 mg Atorvastatin Calcium (Lipitor) 20 mg G-TUBE HS [facility] Last Admin: 02/09/18 21:01 Dose: 20 mg Carvedilol (Coreg) 6.25 mg G-TUBE DAILY [facility] Last Admin: 02/10/18 08:04 Dose: 6.25 mg Clonidine HCl (Catapres) 0.1 mg PO Q6H PRN PRN Reason: SBP>180, DBP>110 Last Admin: 02/09/18 05:54 Dose: 0.1 mg Collagenase (Santyl Oint) 1 applicatio TOPICAL DAILY [facility] Last Admin: 02/10/18 08:05 Dose: 1 applicatio Dextrose (D50w Vial) 50 ml IV.PUSH UNSCH PRN PRN Reason: PER HYPOGLYCEMIA PROTOCOL Docusate Sodium (Colace Liq) 100 mg G-TUBE BID [facility] Last Admin: 02/10/18 08:05 Dose: Not Given Furosemide (Lasix Liq) 20 mg NG/OG DAILY [facility] Last Admin: 02/10/18 08:03 Dose: 20 mg Glucagon (Glucagon Inj) 1 mg OTHER UNSCH PRN PRN Reason: for Hypoglycemia Protocol Heparin Sodium (Porcine) (Heparin Inj) 5,000 units SQ Q12HR [facility] Last Admin: 02/10/18 08:04 Dose: 5,000 units Hyoscyamine (Levsin Liq) 0.125 mg SL Q4H PRN PRN Reason: SECRETIONS Last Admin: 02/08/18 21:19 Dose: 0.125 mg Magnesium Sulfate Inj 4 gm/ (Sodium Chloride) 100 mls @ 50 mls/hr IV.SIG UNSCH PRN PRN Reason: For Magnesium 0.9 - 1.1 mg/dL Magnesium Sulfate Inj 2 gm/ (Sodium Chloride) 100 mls @ 50 mls/hr IV.SIG UNSCH PRN PRN Reason: For Magnesium 1.2 - 1.6 mg/dL Potassium Chloride (Kcl 40 Meq Premix Inj) 40 meq in 100 mls @ 25 mls/hr IV.SIG Q2H PRN PRN Reason: For Potassium 2.8 - 3.2 mEq/L Potassium Chloride (Kcl 40 Meq Premix Inj) 40 meq in 100 mls @ 25 mls/hr IV.SIG UNSCH PRN PRN Reason: For Potassium 3.3 - 3.5 mEq/L Potassium Chloride (Kcl 20 Meq Premix Inj) 20 meq in 100 mls @ 50 mls/hr IV.SIG Q2H PRN PRN Reason: For Potassium 2.8 - 3.2 mEq/L Last Infusion: 01/21/18 20:49 Dose: Infused Potassium Phosphate 30 mmol/ (Sodium Chloride) 260 mls @ 42 mls/hr IV.SIG UNSCH PRN PRN Reason: SEE LABEL COMMENTS Sodium Phosphate 30 mmol/ (Sodium Chloride) 260 mls @ 42 mls/hr IV.SIG UNSCH PRN PRN Reason: For Phosphorus < 2.5 mg/dL Last Infusion: 02/06/18 22:00 Dose: Infused Insulin Aspart (Novolog Insulin Correctional Sugar Inj) 0 unit SQ BID [facility]; Protocol Last Admin: 02/10/18 08:29 Dose: Not Given Labetalol HCl (Trandate Inj) 10 mg IV.PUSH Q1H PRN PRN Reason: SBP>160, DBP>90 Last Admin: 02/09/18 05:07 Dose: 10 mg Lactobacillus Acidophilus (Lactinex Pkt) 1 gm G-TUBE TID [facility] Last Admin: 02/10/18 12:44 Dose: 1 gm Lansoprazole (Prevacid Solutab) 30 mg NG/OG DAILY [facility] Last Admin: 02/10/18 08:04 Dose: 30 mg Lorazepam (Ativan Inj) 0.5 mg IV.PUSH HS PRN PRN Reason: SLEEP Last Admin: 01/31/18 22:39 Dose: 0.5 mg Magnesium Oxide (Mag-Ox) 800 mg PO UNSCH PRN PRN Reason: For Magnesium 1.2 - 1.6 mg/dL Metoclopramide HCl (Reglan Inj) 5 mg IV.PUSH Q8HR [facility]; Protocol Last Admin: 02/10/18 13:03 Dose: 5 mg Miscellaneous (Pill Splitter) 1 each OTHER UNSCH PRN PRN Reason: SEE LABEL COMMENTS Modafinil (Provigil) 200 mg G-TUBE DAILY [facility] Last Admin: 01/16/18 10:29 Dose: Not Given Multivitamins/Minerals (Theragran-M) 1 tab PO DAILY [facility] Last Admin: 02/10/18 08:04 Dose: 1 tab Polyethylene Glycol (Miralax) 17 gm PO DAILY [facility] Last Admin: 02/10/18 08:04 Dose: Not Given Potassium Bicarb/Potassium Chloride (K-Lyte Cl Eff) 25 meq G-TUBE DAILY [facility] Last Admin: 02/10/18 08:03 Dose: 25 meq Potassium Bicarb/Potassium Chloride (K-Lyte Cl Eff) 50 meq PO UNSCH PRN PRN Reason: For Potassium 3.3 - 3.5 mEq/L Last Admin: 02/03/18 09:21 Dose: 25 meq Potassium Phosphate (K-Phos Original) 2,000 mg PO UNSCH PRN PRN Reason: SEE LABEL COMMENTS Potassium Phosphate (K-Phos Original) 2,000 mg PO Q4H PRN PRN Reason: Phosphorus Less Than 2.5 mg/dL Sodium Chloride (Ns Flush) 2 ml IV.FLUSH BID [facility] Last Admin: 02/10/18 08:05 Dose: 2 ml Sodium Chloride (Ns Flush) 2 ml IV.FLUSH UNSCH PRN PRN Reason: FLUSH AFTER USING IV ACCESS Last Admin: 01/07/18 22:19 Dose: 2 ml Valproate Sodium (Depakene Liq) 500 mg G-TUBE TID [facility] Last Admin: 02/10/18 12:44 Dose: 500 mg Vancomycin HCl (Vancomycin Po) 250 mg G-TUBE QID [facility] Last Admin: 02/10/18 12:44 Dose: 250 mg Allergies/Adverse Reactions: Allergies Allergy/AdvReac Type Severity Reaction Status Date / Time acetaminophen Allergy Severe nausea and Verified 01/01/18 11:09 vomiting propoxyphene Allergy Severe nausea and Verified 01/01/18 11:09 vomiting MRI PRECAUTION Allergy Severe UNKNOWN Uncoded 01/01/18 11:09 Physical Exam Vital signs: Vital Signs 02/09/18 19:39 02/09/18 20:00 02/09/18 23:00 Temperature 98.2 F Pulse Rate 68 68 Respiratory Rate 23 Blood Pressure 132/87 Pulse Oximetry 100 100 02/10/18 00:00 02/10/18 03:00 02/10/18 04:00 Temperature 98.0 F 98.2 F Pulse Rate 74 68 74 Respiratory Rate 21 19 Blood Pressure 114/70 133/60 Pulse Oximetry 97 97 02/10/18 07:00 02/10/18 08:00 02/10/18 11:00 Temperature 98.8 F Pulse Rate 73 77 67 Respiratory Rate Blood Pressure 151/71 H Pulse Oximetry 99 02/10/18 12:00 Temperature 98.5 F Pulse Rate 69 Respiratory Rate Blood Pressure 129/62 Pulse Oximetry 95 Intake & Output 02/09/18 02/10/18 02/10/18 18:59 06:59 18:59 Intake Total 864 / 864 Output Total 1150 / 1150 650 / 650 Balance -286 / -286 -650 / -650 Intake: Tube Feeding 764 / 764 Tube Irrigant 100 / 100 Output: Urine 550 / 550 Stool 400 / 400 100 / 100 Urine Amount (Catheter) 750 / 750 Indwelling Temp Sensing 750 / 750 Catheter Other: Date of Last Bowel Movement 02/09/18 02/10/18 02/10/18 - Routine Neurological Exam lethargic but arousable. follows simple commands CN perrl. left UMN 7 palsey MOTOR 0/5 LUE. 4/5 RUE - Urinary Catheter Management Indwelling Temp Sensing Catheter Cath placed during this visit: yes Urethral indwelling: Yes Reason for continuing: Severe pressure ulcer/wound Insertion date: 01/16/18 Insertion time: 04:00 Objective Laboratory Results - last 24 hr 02/09/18 02/09/18 02/10/18 21:11 22:21 08:15 POC Glucose 130 H 113 H Stl C.difficile Tox PCR Positive H St C. diff Tox Epid 027 Positive H Review/Management - Diagnosis (1) Acute right MCA stroke Code(s): I63.511 - Cerebral infarction due to unspecified occlusion or stenosis of right middle cerebral artery Status: Acute Current Visit: Yes (2) Chronic right arterial ischemic stroke, MCA (middle cerebral artery) Code(s): I69.30 - Unspecified sequelae of cerebral infarction Status: Acute Current Visit: Yes (3) Hypertension Code(s): I10 - Essential (primary) hypertension Status: Chronic Current Visit: Yes (4) Seizure Code(s): R56.9 - Unspecified convulsions Status: Chronic Current Visit: Yes - Review/Management Plan: increase depakote to 500 mg tid and follow level CT brain is reviewed from yesterday and shows old large right MCA stroke with no hemorrhage or new findings. It is ok to restart anticoagulation for afib from neurologic standpoint when ok with medicine service. Recheck valproic acid level next week
--- NOTE | 2018-02-10 17:27 | P.PNPL ---
Subjective Interval history: 87 YO AA with MCA stroke, RF, trach On Trach collar opens eyes Tolerates TF On Fi02 28% Small amount of trach secretions Physical Exam Vital signs: Vital Signs 02/09/18 19:39 02/09/18 20:00 02/09/18 23:00 Temperature 98.2 F Pulse Rate 68 68 Respiratory Rate 23 Blood Pressure 132/87 Pulse Oximetry 100 100 02/10/18 00:00 02/10/18 03:00 02/10/18 04:00 Temperature 98.0 F 98.2 F Pulse Rate 74 68 74 Respiratory Rate 21 19 Blood Pressure 114/70 133/60 Pulse Oximetry 97 97 02/10/18 07:00 02/10/18 08:00 02/10/18 11:00 Temperature 98.8 F Pulse Rate 73 77 67 Respiratory Rate Blood Pressure 151/71 H Pulse Oximetry 99 02/10/18 12:00 Temperature 98.5 F Pulse Rate 69 Respiratory Rate Blood Pressure 129/62 Pulse Oximetry 95 Intake & Output 02/09/18 02/10/18 02/10/18 18:59 06:59 18:59 Intake Total 864 / 864 Output Total 1150 / 1150 650 / 650 Balance -286 / -286 -650 / -650 Intake: Tube Feeding 764 / 764 Tube Irrigant 100 / 100 Output: Urine 550 / 550 Stool 400 / 400 100 / 100 Urine Amount (Catheter) 750 / 750 Indwelling Temp Sensing 750 / 750 Catheter Other: Date of Last Bowel Movement 02/09/18 02/10/18 02/10/18 GENERAL: frail elderly AA female, mild sob SKIN: Warm and dry. HEAD: Normocephalic. EYES: No scleral icterus. No injection or drainage. NECK: Supple, trachea midline. No JVD or lymphadenopathy. trach in place CARDIOVASCULAR: Regular rate and rhythm without murmurs, gallops, or rubs. RESPIRATORY: Breath sounds equal bilaterally. No accessory muscle use. GASTROINTESTINAL: Abdomen soft, non-tender, nondistended. MUSCULOSKELETAL: No cyanosis, or edema. BACK: Nontender without obvious deformity. No CVA tenderness. - Urinary Catheter Management Indwelling Temp Sensing Catheter Cath placed during this visit: yes Urethral indwelling: Yes Reason for continuing: Severe pressure ulcer/wound Insertion date: 01/16/18 Insertion time: 04:00 Assessment and Plan - Plan IMPRESSION: 1. Respiratory failure, status post tracheostomy tube placement. 2. 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 2. Encephalopathy. 3. Seizure disorder. PLAN: Trach collar Suction as needed Supplement 02 Tube feeding
[2018-02-10] MEDS: Hypromellose 0.3% Opth Gel 10 GM Bottle EACH EYE SCH (21:08)
[2018-02-11 05:31] LABS: Alanine Aminotransferase 27 U/L (10-53); Anion Gap 2 meq/L (5-15); Aspartate Aminotransferase 43 U/L (15-37); Baso % (Auto) 1.1 % (0.0-2.0); Blood Urea Nitrogen 30 mg/dL (7-18); Calcium 8.8 mg/dL (8.5-10.1); Carbon Dioxide 34.1 meq/L (21.0-32.0); Chloride 109 meq/L (98-107); Eos # (Auto) 0.2 th/mm3 (0.0-0.4); Eos % (Auto) 4.6 % (0.0-4.0); Glomerular Filtration Rate Greater Than 89 mL/min (>89); Glucose,Random 117 mg/dL (74-106); Hematocrit 28.8 % (35.0-46.0); Hemoglobin 9.3 gm/dL (11.6-15.3); Lymph # (Auto) 1.9 th/mm3 (1.0-4.8); Lymph % (Auto) 45.5 % (9.0-44.0); Magnesium 2.1 mg/dL (1.5-2.5); Mean Corpuscular HGB Conc 32.3 % (32.0-36.0); Mean Corpuscular Hemoglobin 30.8 pg (27.0-34.0); Mean Corpuscular Volume 95.2 fL (80.0-100.0); Mean Platelet Volume 7.9 fL (7.0-11.0); Mono # (Auto) 0.6 th/mm3 (0.0-0.9); Mono % (Auto) 13.9 % (0.0-8.0); Neut # (Auto) 1.5 th/mm3 (1.8-7.7); Neut % (Auto) 34.9 % (16.0-70.0); Platelet Count 432 th/mm3 (150-450); Potassium 5.1 meq/L (3.5-5.1); Red Blood Count 3.03 mil/mm3 (4.00-5.30); Red Cell Distribution Width 15.6 % (11.6-17.2); Sodium 145 meq/L (136-145); White Blood Count 4.2 th/mm3 (4.0-11.0)
[2018-02-11 05:40] LABS: Alkaline Phosphatase 153 U/L (45-117); Free T4 (Free Thyroxine) 1.35 ng/dL (0.76-1.46); Total Protein 6.6 g/dL (6.4-8.2)
[2018-02-11] MEDS: Heparin - SQ 10,000 UNITS/ML Vial SQ SCH (09:02)
[2018-02-11] MEDS: Furosemide Liq 40 MG/5 ML UDC NG/OG SCH (09:02)
[2018-02-11] MEDS: Docusate Sodium Liq 100 MG/10 ML UDC G-TUBE SCH (09:03)
[2018-02-11] MEDS: Insulin NovoLOG Aspart Correctional Sugar Inj SQ SCH (09:04)
[2018-02-11] MEDS: Polyethylene Glycol 3350 17 GM Packet PO SCH (09:04)
[2018-02-11] MEDS: Collagenase Oint 30 GM Tube TOPICAL SCH (09:04)
[2018-02-11] MEDS: Multivitamin/Minerals Therapeutic Tablet PO SCH (09:04)
[2018-02-11] MEDS: Potassium Chloride 25 MEQ Effervescent Tablet G-TUBE SCH (09:04)
[2018-02-11 09:55] VITALS: O2SAT 99
--- NOTE | 2018-02-11 10:43 | P.PN ---
Subjective Interval history: Subjective extracorporeal circulation specialist Notes. 87 year old female admitted initially for evaluation of a witnessed seizure. The patient is care home resident with multiple medical issues, including history of seizures on Keppra. Per chart review her baseline is alert, confused , and often combative at a care home. She is verbal. She is able to feed herself; she consumes a pureed, nectar-thick diet. She spends most of her time in chair, with limited mobility. She was admitted to [facility] in December 18 for the above, while in the hospital she developed right MCA stroke with significant damage of almost entire right hemisphere. The patient's daughter is a ICU nurse at outside of state facility , who is requesting to continue aggressive management. Today early in the morning the patient developed respiratory arrest flowed by a cardiac arrest requiring multiple cycles of CPR and epinephrine injections. The initial rhythm was PEA versus asystolic. After approximately 15 minutes of CPR the patient regained spontaneous circulation. She was intubated just prior to arrest, and later central line and A-line was used due to hemodynamic instability. The patient's daughter was called during the CPR and again requested full code and aggressive management. 01/16 1000 hrs: Gas exchange now acceptable and pH problems have been corrected with ventilator manipulations. The etiology of the rest appears to have been a hypercapnic respiratory acidosis superimposed on a large dominant hemisphere acute stroke. Chest x-ray reviewed tubes and lines in good position. Cardiac rhythm appears to be atrial paced. The QRS is wide and I suspect within there somewhere is a sequential ventricular spike although I do not see it on the monitor. Potassium was elevated at 5.8 we will follow that closely. At present she is requiring 8 mcg/min of epinephrine and urine output has been about 40 mL's. Patient remains critically ill. 01/17: no improvements. severely encephalopathic. remains on epinephrine, although digits are now dusky and our vasopressors may be causing more harm than any improvements at this point. will be forced to use ivf for perfusion instead of epinephrine. I was unable to reach family today, though the family medicine service updated the family and they press on for aggressive measures. unlikely to have any meaningful recovery given large stroke superimposed on baseline poor functionality. 01/18: Remains lethargic but opens eyes to painful stimuli. Involuntarily grasped with the right hand. Left upper extremity is flaccid but withdraws bilateral lower extremity. Dilantin level was elevated on 01/16/2016 will recheck level today and tomorrow morning. Discussed in detail with daughter Kaci 01/19: Neuro exam remains unchanged no improvement in encephalopathy. Dilantin level remains elevated at 24.5, albumin corrected will be much higher. Updated daughter Kaci, she will meet with palliative care today 01/20: Patient is still obtunded encephalopathy. Dilantin level further down 20.3. No seizures. Family at this time wants to continue aggressive care. Patient remains hemodynamically more stable. Urine culture growing gram- negative rods started on Rocephin 01/21: Neuro status remains unchanged remains obtunded encephalopathic. Dilantin level improved to 16.2 today. Urine culture growing ESBL E. coli. Rocephin was discontinued, started on meropenem 1 g IV every 8 hours 01/22: Patient remains intubated remains completely off all sedation for several days. Dilantin level down to 14.2 uncorrected. Slightly more responsive to painful stimuli, continues to have partial eye opening. 01/23: No significant improvement in neuro exam though opening eyes more with stimulation. Dilantin level coming down today 12.8. Albumin is 1.5 corrected level is about 30 mcg/ml. daughter wants to wait a few more days prior to deciding on trach versus withdrawal. 01/24: No real change in neurologic exam. She does move her right arm spontaneously. Her eyes open but I cannot seem to convince myself that she tracks. Blood pressure well controlled. Unable to wean from ventilator. 01/25: No improvement in neurologic exam. She fails CPAP trials when breathing spontaneously and will likely need a tracheostomy. I will discuss with the palliative care service whether the family would like to pursue the trach and PEG route. 01/26: Remains without suitable response to stimulation. Apneic episodes while on spontaneous breathing trials. 01/27: Her eyes are more widely open today. She clearly tracks motion around the room and appears to respond to questions. She moves her right arm and hand weakly to command. This is considerable improvement from yesterday. She remains very weak on spontaneous breathing trials requiring 17 cm water of pressure support. 01/28: Again today she opens her eyes spontaneously intends to track with her eyes. Her respiratory effort remains weak but she has improved stamina over the past 48 hours. I think she would recognize her family at this point. We await their decision on whether to proceed with tracheostomy. 01/29: A little more lethargic today. She opens her eyes but not with the alertness of yesterday. She failed CPAP trials again today and less quite high pressure support is used. The daughter Kaci would like to proceed with tracheostomy despite the fact that recovery may be limited. 01/30: Patient continued to have inadequate tidal volumes during attempted spontaneous breathing trials this morning. Per daughter's wishes we proceeded with the placement of a tracheostomy. The woman required some sedation for this procedure and we anticipate that it may take a day or so for her to recover completely from the analgesia and sedation. 01/31: Currently on PSV trial 06/08 at 35% arousable. Will inadvertently squeeze right upper extremity only at the present time. Tube feeds will be changed to Glucerna 1.5 per nutrition's recommendations at 50 cc an hour 02/01: Patient remains on CPAP via trach. Not on any sedation. Somnolent but wakes up, tracks today. Not following commands 02/02: Tolerating T piece today. Neuro remains unchanged. Opens eyes to stimulation. Increase T piece time to 8-10 hours from today 02/03: Patient had episode of apnea. Back on a rate on the ventilator. Will attempt CPAP trial again today. No T piece trial today. Tolerating tube feeding. Positive BM. Opens eyes to stimulation's and moves right upper extremity. 02/04: Resting comfortably in bed in no acute distress. Lasted T-piece from 11 a.m. to 9 PM yesterday. Currently on CPAP trial. Afebrile. Tolerating tube feeding. 02/05: Currently in T piece trial. Tolerating tube feeding. Afebrile. Neurologic unchanged. Eyes open to moving right upper extremity spontaneously. Positive BM. 02/06: Remains on T piece trial. Afebrile. No bowel movement yesterday. Neurologically unchanged. Discussed with daughter yesterday. Request neurology to reevaluate on Wednesday. 02/11/18 seen in her bedroom, afebrile, discussed with nurse ready for discharge To SNF. no changes to anterior assessment. Physical Exam Vital signs: Vital Signs 02/10/18 11:00 02/10/18 12:00 02/10/18 15:00 Temperature 98.5 F Pulse Rate 67 69 65 Respiratory Rate Blood Pressure 129/62 Pulse Oximetry 95 02/10/18 16:00 02/10/18 19:00 02/10/18 20:00 Temperature 98.6 F 97.9 F Pulse Rate 71 62 66 Respiratory Rate 19 23 Blood Pressure 137/67 127/73 Pulse Oximetry 100 96 97 02/10/18 23:00 02/11/18 00:00 02/11/18 03:00 Temperature 98 F Pulse Rate 66 57 L 70 Respiratory Rate 20 Blood Pressure 123/60 Pulse Oximetry 98 02/11/18 04:00 02/11/18 07:00 02/11/18 07:52 Temperature 97.6 F Pulse Rate 68 77 Respiratory Rate 19 Blood Pressure 143/84 H Pulse Oximetry 96 99 02/11/18 08:00 02/11/18 09:30 02/11/18 09:54 Temperature 98 F Pulse Rate 65 Respiratory Rate 19 Blood Pressure 147/75 H Pulse Oximetry 96 98 99 Intake & Output 02/10/18 02/11/18 02/11/18 18:59 06:59 18:59 Intake Total 834 / 834 952 / 952 Output Total 675 / 675 750 / 750 Balance 159 / 159 202 / 202 Weight 64 kg Intake: Oral 0 / 0 Tube Feeding 714 / 714 532 / 532 Tube Irrigant 120 / 120 120 / 120 Water Bolus Amount 300 / 300 Output: Stool 250 / 250 Urine Amount (Catheter) 675 / 675 500 / 500 Indwelling Temp Sensing 675 / 675 500 / 500 Catheter Other: Date of Last Bowel Movement 02/10/18 02/11/18 02/11/18 Narrative: GENERAL: WN, WD AA female resting in bed. NECK: Trach in place with no surrounding erythema. HEART: RRR no m/r/g. LUNGS: Few rhonchi bilaterally ABDOMEN: +BS, soft, NT, ND. PEG tube in place EXTREMITIES: No LE edema. 1+ LUE with pitting edema. NEURO: Spontaneous eye opening. Moving RUE. LUE flaccid. Has decubitus - Urinary Catheter Management Indwelling Temp Sensing Catheter Cath placed during this visit: yes Urethral indwelling: Yes Reason for continuing: Severe pressure ulcer/wound Insertion date: 01/16/18 Insertion time: 04:00 Results - Labs CBC & Chem 7: 02/11/18 04:53 02/11/18 04:53 Laboratory Results - last 24 hr 02/10/18 02/11/18 02/11/18 20:51 04:53 04:53 WBC 4.2 RBC 3.03 L Hgb 9.3 L Hct 28.8 L MCV 95.2 MCH 30.8 MCHC 32.3 RDW 15.6 Plt Count 432 MPV 7.9 Neut % (Auto) 34.9 Lymph % (Auto) 45.5 H [place] % (Auto) 13.9 H Eos % (Auto) 4.6 H Baso % (Auto) 1.1 Neut # (Auto) 1.5 L Lymph # (Auto) 1.9 [place] # (Auto) 0.6 Eos # (Auto) 0.2 Baso # (Auto) 0.0 WBC Differential . Differential Comment Auto diff final Sodium 145 Potassium 5.1 Chloride 109 H Carbon Dioxide 34.1 H Anion Gap 2 L BUN 30 H Creatinine 0.40 L Estimated GFR Greater than 89 POC Glucose 95 Random Glucose 117 H Calcium 8.8 Phosphorus 3.0 Magnesium 2.1 Total Bilirubin 0.2 AST 43 H ALT 27 Alkaline Phosphatase 153 H Total Protein 6.6 Albumin 2.0 L TSH 2.560 Free T4 1.35 Assessment and Plan - Assessment (1) Acute right MCA stroke Code(s): I63.511 - Cerebral infarction due to unspecified occlusion or stenosis of right middle cerebral artery Status: Acute (2) Seizure Code(s): R56.9 - Unspecified convulsions Status: Chronic (3) Sacral pressure ulcer Code(s): L89.159 - Pressure ulcer of sacral region, unspecified stage Status: Acute (4) Cardiopulmonary arrest with successful resuscitation Code(s): I46.9 - Cardiac arrest, cause unspecified Status: Resolved - Attending Attestation en-route to hospital and Keppra bolus in ED. Patient's GCS 8 at time of admission encounter. Patient originally admitted for evaluation and management of seizure versus CVA. New CVA in right MCA region found by head CT on 01/03 ( likely the original inciting event for admission) with further evolution on 01/08. 1. R ischemic MCA CVA - Patient with large ischemic stroke involving R hemisphere despite being on Eliquis - High risk for hemorrhagic conversion therefore anticoagulation has been held - Neurology was following and last recommendation was on 01/14; at the time felt patient was neurologically clear for rehab and recommended f/u CT scan 2 weeks from that time - Last CT head was 01/19 showing stable appearance to the right MCA infarct with no evidence of acute blood products or mass effect - PT following - Rehab/SNF on discharge -Status post trach and PEG 2. Chronic respiratory failure - Tracheostomy in place - CXR 02/07 with improved aeration - On T-piece for oxygen support - Consulted pulm for trach management - Supplemental O2 to maintain sats >92% 3. Seizure - Keppra and Dilantin discontinued this admission - Depakote level continues to be low though patient remains clinically stable - Dosing hasn't been changed since 01/02 but I am hesitant with patient's elevated AST - Consulted neurology for recommendations on antiepileptic dosing - Ativan PRN - Seizure precautions 4. Metabolic encephalopathy, persists - Likely combination of medications, phenytoin toxicity on admission, CVA, and possibly anoxic brain injury following respiratory/cardiac arrest on 01/16 5. C. diff - S/P treatment We will continue on vancomycin 250 mg via PEG 4 times daily 6. UTI - ESBL + E. coli and Fern - S/P treatment with meropenem and Diflucan 7. Protein calorie malnutrition - Jevity 1.5 at 50 cc/hour per nutrition recommendation with free water 100 cc Q8H - Tolerating goal TFs 8. Atrial fibrillation - Rate-controlled - Continue carvedilol - Eliquis when cleared by neuro 9. CHF - Euvolemic on exam - Continue home Lasix and Coreg 10. HTN - Per neurology, goal less than 120/80 - Continue home Coreg 11. Sacral pressure ulcer - Wound care following - Frequent position changes 12. S/P cardiac arrest with resuscitation - Code Lawrence called on 01/16 - Cardiology evaluated, no further work-up 13. LUE swelling - Doppler U/S showed nonocclusive superficial thrombus in distal cephalic vein conservative treatment at this time elevate no anticoagulation secondary to high risk of hemorrhage - Elevate arm DVT prophylaxis: holding chemical anticoagulation secondary to concern for risk of hemorrhagic conversion of large CVA GI prophylaxis: continue PPI Code Status: Full code Discussed Condition With: dark room attendant Planning: Discharge to SNF today (3) Sacral pressure ulcer Qualifiers: Pressure ulcer stage: stage 4 Qualified Code(s): L89.154 - Pressure ulcer of sacral region, stage 4
--- NOTE | 2018-02-11 10:59 | P.DS ---
Date of admission: 12/18/17 09:32 Primary care physician: UNKNOWN Brief History from admission: Patient is an 87 year old female who presents to the [facility] ED via EMS following a witnessed seizure. Patient given Versed en-route to hospital and Keppra bolus in ED. Patient's GCS 8 at time of encounter. Non-verbal. History per ED physician, nursing staff and daughter via phone. Per ED physician: "87-year-old elderly female patient from snf with multiple medical issues, including history of seizures on Keppra, presents to the ER today because she was having seizures at the facility, was found with GCS 3 according to EMS initially with seizures, was given Versed on the ambulance with improvement seizures, but still is having rhythmic biting like movements of the jaw on arrival to the ER. She is currently not conversant." Per nursing staff: Patient is alert, confused, and often combative at baseline at snf. She is verbal. She is able to feed herself; she consumes a pureed, nectar-thick diet. She spends most of her time in chair, limited mobility. Per patient's daughter: Patient spoke in complete sentences yesterday. She is able to move all extremities but is non-ambulatory. 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 Patient to be full-code. DS: Diagnosis - Discharge Diagnosis (1) Acute right MCA stroke Status: Acute (2) Seizure Status: Chronic (3) Sacral pressure ulcer Status: Acute (4) Cardiopulmonary arrest with successful resuscitation Status: Resolved DS: Summary Hospital Course: agricultural specialist Notes. 87 year old female admitted initially for evaluation of a witnessed seizure. The patient is snf resident with multiple medical issues, including history of seizures on Keppra. Per chart review her baseline is alert, confused , and often combative at a snf. She is verbal. She is able to feed herself; she consumes a pureed, nectar-thick diet. She spends most of her time in chair, with limited mobility. She was admitted to [facility] in December 18 for the above, while in the hospital she developed right MCA stroke with significant damage of almost entire right hemisphere. The patient's daughter is a ICU nurse at outside of state facility , who is requesting to continue aggressive management. Today early in the morning the patient developed respiratory arrest flowed by a cardiac arrest requiring multiple cycles of CPR and epinephrine injections. The initial rhythm was PEA versus asystolic. After approximately 15 minutes of CPR the patient regained spontaneous circulation. She was intubated just prior to arrest, and later central line and A-line was used due to hemodynamic instability. The patient's daughter was called during the CPR and again requested full code and aggressive management. 01/16 1000 hrs: Gas exchange now acceptable and pH problems have been corrected with ventilator manipulations. The etiology of the rest appears to have been a hypercapnic respiratory acidosis superimposed on a large dominant hemisphere acute stroke. Chest x-ray reviewed tubes and lines in good position. Cardiac rhythm appears to be atrial paced. The QRS is wide and I suspect within there somewhere is a sequential ventricular spike although I do not see it on the monitor. Potassium was elevated at 5.8 we will follow that closely. At present she is requiring 8 mcg/min of epinephrine and urine output has been about 40 mL's. Patient remains critically ill. 01/17: no improvements. severely encephalopathic. remains on epinephrine, although digits are now dusky and our vasopressors may be causing more harm than any improvements at this point. will be forced to use ivf for perfusion instead of epinephrine. I was unable to reach family today, though the family medicine service updated the family and they press on for aggressive measures. unlikely to have any meaningful recovery given large stroke superimposed on baseline poor functionality. 01/18: Remains lethargic but opens eyes to painful stimuli. Involuntarily grasped with the right hand. Left upper extremity is flaccid but withdraws bilateral lower extremity. Dilantin level was elevated on 01/16/2016 will recheck level today and tomorrow morning. Discussed in detail with daughter Kaci 01/19: Neuro exam remains unchanged no improvement in encephalopathy. Dilantin level remains elevated at 24.5, albumin corrected will be much higher. Updated daughter Kaci, she will meet with palliative care today 01/20: Patient is still obtunded encephalopathy. Dilantin level further down 20.3. No seizures. Family at this time wants to continue aggressive care. Patient remains hemodynamically more stable. Urine culture growing gram- negative rods started on Rocephin 01/21: Neuro status remains unchanged remains obtunded encephalopathic. Dilantin level improved to 16.2 today. Urine culture growing ESBL E. coli. Rocephin was discontinued, started on meropenem 1 g IV every 8 hours 01/22: Patient remains intubated remains completely off all sedation for several days. Dilantin level down to 14.2 uncorrected. Slightly more responsive to painful stimuli, continues to have partial eye opening. 01/23: No significant improvement in neuro exam though opening eyes more with stimulation. Dilantin level coming down today 12.8. Albumin is 1.5 corrected level is about 30 mcg/ml. daughter wants to wait a few more days prior to deciding on trach versus withdrawal. 01/24: No real change in neurologic exam. She does move her right arm spontaneously. Her eyes open but I cannot seem to convince myself that she tracks. Blood pressure well controlled. Unable to wean from ventilator. 01/25: No improvement in neurologic exam. She fails CPAP trials when breathing spontaneously and will likely need a tracheostomy. I will discuss with the palliative care service whether the family would like to pursue the trach and PEG route. 01/26: Remains without suitable response to stimulation. Apneic episodes while on spontaneous breathing trials. 01/27: Her eyes are more widely open today. She clearly tracks motion around the room and appears to respond to questions. She moves her right arm and hand weakly to command. This is considerable improvement from yesterday. She remains very weak on spontaneous breathing trials requiring 17 cm water of pressure support. 01/28: Again today she opens her eyes spontaneously intends to track with her eyes. Her respiratory effort remains weak but she has improved stamina over the past 48 hours. I think she would recognize her family at this point. We await their decision on whether to proceed with tracheostomy. 01/29: A little more lethargic today. She opens her eyes but not with the alertness of yesterday. She failed CPAP trials again today and less quite high pressure support is used. The daughter Kaci would like to proceed with tracheostomy despite the fact that recovery may be limited. 01/30: Patient continued to have inadequate tidal volumes during attempted spontaneous breathing trials this morning. Per daughter's wishes we proceeded with the placement of a tracheostomy. The woman required some sedation for this procedure and we anticipate that it may take a day or so for her to recover completely from the analgesia and sedation. 01/31: Currently on PSV trial 12/ at 35% arousable. Will inadvertently squeeze right upper extremity only at the present time. Tube feeds will be changed to Glucerna 1.5 per nutrition's recommendations at 50 cc an hour 02/01: Patient remains on CPAP via trach. Not on any sedation. Somnolent but wakes up, tracks today. Not following commands 02/02: Tolerating T piece today. Neuro remains unchanged. Opens eyes to stimulation. Increase T piece time to 8-10 hours from today 02/03: Patient had episode of apnea. Back on a rate on the ventilator. Will attempt CPAP trial again today. No T piece trial today. Tolerating tube feeding. Positive BM. Opens eyes to stimulation's and moves right upper extremity. 02/04: Resting comfortably in bed in no acute distress. Lasted T-piece from 11 a.m. to 9 PM yesterday. Currently on CPAP trial. Afebrile. Tolerating tube feeding. 02/05: Currently in T piece trial. Tolerating tube feeding. Afebrile. Neurologic unchanged. Eyes open to moving right upper extremity spontaneously. Positive BM. 02/06: Remains on T piece trial. Afebrile. No bowel movement yesterday. Neurologically unchanged. Discussed with daughter yesterday. Request neurology to reevaluate on Wednesday. 02/11/18 seen in her bedroom, afebrile, discussed with nurse ready for discharge To SNF. no changes to anterior assessment. - Time Spent with Patient Total time spent providing and/or coordinating discharge services: Greater than 30 minutes Exam Vital signs: Vital Signs 02/10/18 11:00 02/10/18 12:00 02/10/18 15:00 Temperature 98.5 F Pulse Rate 67 69 65 Respiratory Rate Blood Pressure 129/62 Pulse Oximetry 95 02/10/18 16:00 02/10/18 19:00 02/10/18 20:00 Temperature 98.6 F 97.9 F Pulse Rate 71 62 66 Respiratory Rate 19 23 Blood Pressure 137/67 127/73 Pulse Oximetry 100 96 97 02/10/18 23:00 02/11/18 00:00 02/11/18 03:00 Temperature 98 F Pulse Rate 66 57 L 70 Respiratory Rate 20 Blood Pressure 123/60 Pulse Oximetry 98 02/11/18 04:00 02/11/18 07:00 02/11/18 07:52 Temperature 97.6 F Pulse Rate 68 77 Respiratory Rate 19 Blood Pressure 143/84 H Pulse Oximetry 96 99 02/11/18 08:00 02/11/18 09:30 02/11/18 09:54 Temperature 98 F Pulse Rate 65 Respiratory Rate 19 Blood Pressure 147/75 H Pulse Oximetry 96 98 99 Intake & Output 02/10/18 02/11/18 02/11/18 18:59 06:59 18:59 Intake Total 834 / 834 952 / 952 Output Total 675 / 675 750 / 750 Balance 159 / 159 202 / 202 Weight 64 kg Intake: Oral 0 / 0 Tube Feeding 714 / 714 532 / 532 Tube Irrigant 120 / 120 120 / 120 Water Bolus Amount 300 / 300 Output: Stool 250 / 250 Urine Amount (Catheter) 675 / 675 500 / 500 Indwelling Temp Sensing 675 / 675 500 / 500 Catheter Other: Date of Last Bowel Movement 02/10/18 02/11/18 02/11/18 Results Procedures completed during hospitalization: Tracheostomy PEG tube placement Ruiz cath placement Labs on day of discharge: Labs from last 24 hours 02/11/18 02/11/18 02/10/18 04:53 04:53 20:51 WBC 4.2 RBC 3.03 L Hgb 9.3 L Hct 28.8 L MCV 95.2 MCH 30.8 MCHC 32.3 RDW 15.6 Plt Count 432 MPV 7.9 Neut % (Auto) 34.9 Lymph % (Auto) 45.5 H Coal % (Auto) 13.9 H Eos % (Auto) 4.6 H Baso % (Auto) 1.1 Neut # (Auto) 1.5 L Lymph # (Auto) 1.9 Coal # (Auto) 0.6 Eos # (Auto) 0.2 Baso # (Auto) 0.0 WBC Differential . Differential Comment Auto diff final Sodium 145 Potassium 5.1 Chloride 109 H Carbon Dioxide 34.1 H Anion Gap 2 L BUN 30 H Creatinine 0.40 L Estimated GFR Greater than 89 POC Glucose 95 Random Glucose 117 H Calcium 8.8 Phosphorus 3.0 Magnesium 2.1 Total Bilirubin 0.2 AST 43 H ALT 27 Alkaline Phosphatase 153 H Total Protein 6.6 Albumin 2.0 L TSH 2.560 Free T4 1.35 - Impressions ITS Impressions Chest X-Ray 02/07/18 06:00 CONCLUSION: Slight improved aeration on the right. Venous Doppler Study 02/08/18 00:00 CONCLUSION: 1. Nonocclusive superficial thrombus in the distal cephalic vein. No deep venous thrombosis. Head CT 02/09/18 00:00 CONCLUSION: 1. No acute intracranial abnormality demonstrated. 2. Multifocal chronic infarcts again noted as above. . Discharge Plan - Discharge Disposition Patient Disposition: Discharge to SNF - Discharge Condition Condition: Stable - Discharge Order Discharge Orders: Discharge Order (Routine); Ordered 02/11/18 Ordered By: Mychal Mendez - Discharge Details Anticipated Discharge Date: 02/11/18 Discharge Comment: Discharge to SNF - Physicians Team Primary Care Provider: UNKNOWN, Attending Provider: Mychal Mendez Other Providers: Lizzy Glaser MD ; Tay Kapoor MD ; Krunal Arriola DO ; Yakov Cadena MD ; Kylie Bailon MD ; Xiomara Crisostomo MD ; Eddy Raya MD ; Kelley Dunham MD ; [facility] ; Kalin Taoism [facility] ; Yvon Hull MD ; Gerhard Carpenter MD - Rxs /Orders / Referrals /Forms Prescriptions: New mlkaijhi-kftseksib-lvgdglf bmb [Jarod] 7-7-1.5 gram Powder In Packet 1 packet G-Tube BID RF: 0 artificial tears(hypromellose) [GenTeal Severe] 0.3 % Gel 1 drops EACH EYE HS RF: 0 aspirin 81 mg Tablet,Chewable 324 mg G-Tube DAILY RF: 0 atorvastatin 20 mg Tablet 20 mg G-Tube HS RF: 0 carvedilol [Coreg] 3.125 mg Tablet 6.25 mg G-Tube DAILY RF: 0 clonidine HCl [Catapres] 0.1 mg Tablet 0.1 mg PO Q6H PRN (Reason: Sbp>180, Dbp>110) RF: 0 docusate sodium 50 mg/5 mL Liquid 100 mg G-Tube BID RF: 0 furosemide 40 mg/5 mL (8 mg/mL) Solution 20 mg NG/OG DAILY RF: 0 hyoscyamine sulfate [Hyosyne] 0.125 mg/mL Drops 0.125 mg Sublingual Q4H PRN (Reason: Secretions) RF: 0 Lactobacillus acidoph-L.bulgar [Floranex] 100 million cell Granules In Packet 1 gm G-Tube TID RF: 0 lansoprazole [Prevacid SoluTab] 30 mg Tablet,Disintegrat, Delay Rel 30 mg NG/OG DAILY RF: 0 modafinil 200 mg Tablet 200 mg G-Tube DAILY RF: 0 fixgtfel-mgej-XT-calcium-mins [Thera M Plus (ferrous fumarat)] 9 mg iron-400 mcg Tablet 1 tab PO DAILY RF: 0 polyethylene glycol 3350 17 gram Powder In Packet 17 gm PO DAILY RF: 0 valproic acid (as sodium salt) 250 mg/5 mL (5 mL) Solution 500 mg G-Tube TID RF: 0 vancomycin 500 mg Recon Soln 250 mg G-Tube QID RF: 0 Discontinued acetaminophen [Tylenol] 325 mg Tablet 650 mg PO Q6H PRN (Reason: Pain) apixaban [Eliquis] 2.5 mg Tablet 2.5 mg PO BID atorvastatin 20 mg Tablet 20 mg PO HS carvedilol 3.125 mg Tablet 3.125 mg PO BID dextromethorphan-guaifenesin 10-100 mg/5 mL Syrup 10 ml PO Q6H dextromethorphan-guaifenesin [Mucinex DM] 30-600 mg Tablet Extended Release 12 Hr 1 tab PO BID PRN (Reason: Cough) docusate sodium [Colace] 100 mg Capsule 100 mg PO Q8H PRN (Reason: Constipation) furosemide [Lasix] 20 mg Tablet 20 mg PO DAILY gabapentin 100 mg Capsule 100 mg PO BID hydrocodone-acetaminophen [[place]] 7.5-325 mg Tablet 1 tab PO Q8H PRN (Reason: Pain) ipratropium-albuterol 0.5 mg-3 mg(2.5 mg base)/3 mL Solution For Nebulization 3 ml INHALATION Q6H PRN (Reason: SOB/WHEEZING) levetiracetam 500 mg Tablet 500 mg PO BID mirtazapine 15 mg Tablet 15 mg PO HS multivitamin,ha-qyep-xcghmkhh [Thera-M] Tablet 1 tab PO DAILY omeprazole 20 mg Capsule,Delayed Release(Dr/Ec) 20 mg PO DAILY polyethylene glycol 3350 [Miralax] 17 gram Powder In Packet 17 g PO DAILY potassium chloride 10 mEq Capsule, Extended Release 10 meq PO DAILY prednisone 2.5 mg Tablet 2.5 mg PO DAILY Referrals: Chaz Carolina MD, PhD [Physician] - See Instructions UNKNOWN, [Primary Care Provider] - See Instructions
[2018-02-11 15:19] VITALS: BP 154/80; PULSE 84; RESP 22; TEMP 98.4
== END 2018-02-11 17:15 ==
LOC: N05 09:32 → N03 01-16 01:56 → H7ONC 02-11 09:48
PROVIDERS: ADMIT Internal Medicine; ATTEND Internal Medicine